=== PATIENT | male | born 1955 | race Caucasian/White ===

== ENCOUNTER → 2021-05-27 12:07 | Outpatient (BNVA) | payer OTHER, SELFPAY | PROVIDERS: PCP Family Medicine; Visit Provider Nurse Practitioner Family | DX: Z13.89 Encounter for screening for other disorder (principal) ==

== ENCOUNTER → 2021-06-28 12:51 | Outpatient (BNVA) | payer OTHER, SELFPAY | PROVIDERS: PCP Family Medicine; Visit Provider Nurse Practitioner Family ==

== ENCOUNTER → 2022-04-10 14:17 | Outpatient (BNVA) | payer OTHER, SELFPAY | PROVIDERS: PCP Family Medicine; Visit Provider Nurse Practitioner Family | DX: Z13.89 Encounter for screening for other disorder (principal) ==

== ENCOUNTER 2022-04-19 11:46 | Outpatient (REF) | payer OTHER, SELFPAY ==
--- NOTE | ~2022-04-19 | XR_ITS ---
EXAMINATION: XR PELVIS CLINICAL INFORMATION: Right hip pain COMPARISON: None TECHNIQUE: AP view of the pelvis. FINDINGS: Moderate degenerative changes of the left hip. Mild degenerative changes of the right hip. XR/XR pelvis 1-2V IMPRESSION: Moderate degenerative changes of the left hip. Mild degenerative changes of the right hip.
--- NOTE | ~2022-04-19 | XR_ITS ---
EXAMINATION: XR lumbar spine 6V w bending CLINICAL INFORMATION: Reason for Exam M43.10 - Spondylolisthesis, site unspecified COMPARISON: None TECHNIQUE: 3 views of the lumbar spine FINDINGS: 5 nonrib-bearing lumbar-type vertebral bodies. Vertebral body heights are maintained. Rightward scoliosis of the lumbar spine. Anterolisthesis of L5 on S1 and retrolisthesis of L4 on L5. Advanced multilevel degenerative disc disease with loss of disc space height, facet arthropathy and disc osteophyte complexes. This is worst at L1/L2.. Paravertebral soft tissues are unremarkable. XR/XR lumbar spine 6V w bending IMPRESSION: 1. Moderate spondylosis of the lumbar spine, as above detailed. 2. Spondylolisthesis, as above detailed.
== END 2022-04-19 11:47 | disposition home or self-care (01) ==
LOC: HO.XRAY 11:46
PROVIDERS: PCP Family Medicine; Visit Provider Nurse Practitioner Family
DX: M25.551 Pain in right hip (principal); M25.552 Pain in left hip; M43.10 Spondylolisthesis, site unspecified
CPT/HCPCS: 72114; 72170

== ENCOUNTER → 2022-06-20 15:29 | Outpatient (BNVA) | payer MEDICAID, SELFPAY | PROVIDERS: PCP Family Medicine; Visit Provider Nurse Practitioner Family | DX: D17.79 Benign lipomatous neoplasm of other sites (principal); M54.16 Radiculopathy, lumbar region; M47.816 Spondylosis without myelopathy or radiculopathy, lumbar region; M43.10 Spondylolisthesis, site unspecified; M62.838 Other muscle spasm; M53.3 Sacrococcygeal disorders, not elsewhere classified; M25.551 Pain in right hip; M25.552 Pain in left hip | CPT/HCPCS: 99212 ==

== ENCOUNTER 2022-07-11 06:19 | Outpatient (REF) | payer MEDICAID, SELFPAY ==
--- NOTE | ~2022-07-11 | FL_ITS ---
EXAMINATION: XR FLUOROSCOPY WITH IMAGES CLINICAL INFORMATION: Pain right hip COMPARISON: None available. TECHNIQUE: Fluoroscopy Supervised By: Dr. Napoleon Lim. Fluoroscopy Time: 0.5 minutes. Cumulative Dose: 13.3 mGy. DAP: 3.3 Gycm2. Images: 2. FINDINGS: 2 fluoroscopy images were obtained of right hip. Needle positioned in the right hip joint space and contrast opacifying the joint space. There is mild reduction in right hip joint space.. No bony abnormality seen. FL/FL guidance in treatment room IMPRESSION: Fluoroscopy guidance was provided Fluoroscopy was provided to referring physician for pain management.
== END 2022-07-11 06:20 | disposition home or self-care (01) ==
LOC: CF 06:19
PROVIDERS: Visit Provider Anesthesiology
DX: M16.0 Bilateral primary osteoarthritis of hip (principal); D17.79 Benign lipomatous neoplasm of other sites; M47.816 Spondylosis without myelopathy or radiculopathy, lumbar region; M43.10 Spondylolisthesis, site unspecified; M62.838 Other muscle spasm; M53.3 Sacrococcygeal disorders, not elsewhere classified
CPT/HCPCS: 20610; J2795; J3301

== ENCOUNTER 2022-07-12 18:56 | Outpatient (REF) | payer MEDICAID, SELFPAY ==
--- NOTE | ~2022-07-12 | MR_ITS ---
EXAMINATION: MR LUMBAR SPINE WITHOUT CONTRAST CLINICAL INFORMATION: Low back pain radiating into hips, legs COMPARISON: None TECHNIQUE: MRI of the lumbar spine was obtained using routine sequences without contrast. FINDINGS: S-shaped lumbar scoliosis with mild dextrocurvature, apex at L1-L2 and levocurvature, apex at L4-L5. There is straightening of the normal lumbar lordosis. 9 mm grade 2 anterolisthesis at L5-S1 secondary to chronic bilateral L5 pars interarticularis defects. Otherwise, diffuse stepwise grade 1 retrolistheses throughout the lumbar spine. Vertebral body heights are maintained. There is no suspicious osseous lesion. Diffuse disc desiccation and severe disc height loss with relative sparing at L4-L5. Multilevel predominantly type II Modic endplate changes with intermixed type I Modic endplate changes, most pronounced at L1-L2. Multilevel anterior osteophytic spurring is seen. There is congenital spinal canal stenosis on the basis of short pedicles with either crowding of the epidural fat or superimposed epidural lipomatosis. Multilevel degenerative changes with level by level detail as follows: T12-L1: Disc osteophyte complex with early migrated broad-based left paracentral disc extrusion. Mild bilateral facet arthrosis and ligamentum flavum thickening. Mild spinal canal and mild right without left neural foraminal stenosis. L1-L2: Disc osteophyte complex and likely small superiorly migrated left subarticular disc extrusion. Mild to moderate facet arthrosis. Moderate spinal canal stenosis and bilateral subarticular zone narrowing with mass effect along the traversing left L2 nerve root. Mild bilateral neural foraminal stenosis with impingement upon the extraforaminal right L1 nerve root. L2-L3: Disc osteophyte complex with likely superimposed small inferiorly migrated left subarticular disc extrusion and moderate bilateral facet arthrosis with ligamentum flavum thickening. Circumferential prominence/crowding of the epidural fat. Moderate to severe spinal canal stenosis. Mild to moderate left and mild right neural foraminal stenosis. L3-L4: Disc osteophyte complex. Moderate bilateral facet arthrosis and ligamentum flavum thickening. Circumferential prominence/crowding of the epidural fat. 7 mm hypointense focus above the level of the disc space in the right paracentral region favored to reflect extruded air contributing to severe spinal canal stenosis with mass effect along the cauda equina nerve roots. Moderate to severe spinal canal stenosis at the level of the disc and bilateral subarticular zone narrowing with mass effect along the traversing right greater than left L4 nerve roots. Severe bilateral neural foraminal stenosis with compression of the exiting L3 nerve roots. L4-L5: Small annular disc bulge with moderate facet arthrosis and circumferential prominent/crowding of the epidural fat. Mild to moderate effacement of the thecal sac. Mild to moderate left and mild right neural foraminal stenosis. L5-S1: Uncovered posterior disc, advanced facet arthrosis, and epidural lipomatosis. Complete effacement with mass effect along the thecal sac. Severe bilateral neural foraminal stenosis with compression of the exiting bilateral L5 nerve roots. The conus medullaris terminates at the level of T12-L1. Tendency of the cauda equina at T12-L1 related to multilevel high-grade spinal canal stenosis more inferiorly. The distal spinal cord is normal in appearance. . No epidural fluid collection, hematoma, or mass. There is moderate fatty atrophy of the paraspinal musculature. Right renal cyst for which no further imaging follow-up is required. MR/MR lumbar spine wo con IMPRESSION: 1. S-shaped lumbar scoliosis with diffuse severe discogenic disease with relative sparing of disc height loss at L4-L5. Congenital spinal canal stenosis with either crowding of the epidural fat or superimposed epidural lipomatosis on a background of lumbar spondylosis. Moderate to severe spinal canal stenosis at L2-L3 and L3-L4 and moderate spinal canal stenosis at L1-L2. Above the L3-L4 disc space, there is a presumed 7 mm focus of extruded air where there is severe spinal canal stenosis and mass effect along the cauda equina nerve roots. 2. At L5-S1, grade 2 anterolisthesis secondary to chronic bilateral L5 pars interarticularis defects. Epidural lipomatosis completely effaces the thecal sac at this level, and there is severe bilateral neural foraminal stenosis with compression of the exiting bilateral L5 nerve roots. 3. Severe bilateral neural foraminal stenosis at L3-L4 with compression of the exiting L3 nerve roots.
== END 2022-07-12 18:57 | disposition home or self-care (01) ==
LOC: HO.MRI 18:56
PROVIDERS: PCP Family Medicine; Visit Provider Nurse Practitioner Family
DX: M47.816 Spondylosis without myelopathy or radiculopathy, lumbar region (principal); D17.79 Benign lipomatous neoplasm of other sites; M62.838 Other muscle spasm
CPT/HCPCS: 72148

== ENCOUNTER → 2022-08-03 10:25 | Outpatient (BNVA) | payer MEDICAID, SELFPAY | PROVIDERS: PCP Family Medicine; Visit Provider Physician Assistant | DX: M48.061 Spinal stenosis, lumbar region without neurogenic claudication (principal); M54.16 Radiculopathy, lumbar region | CPT/HCPCS: 99202 ==

== ENCOUNTER → 2022-08-10 09:03 | Outpatient (BNVA) | payer MEDICAID, SELFPAY | PROVIDERS: PCP Family Medicine; Visit Provider Nurse Practitioner Family | DX: M48.061 Spinal stenosis, lumbar region without neurogenic claudication (principal); M54.16 Radiculopathy, lumbar region; M16.0 Bilateral primary osteoarthritis of hip; M47.816 Spondylosis without myelopathy or radiculopathy, lumbar region; M25.551 Pain in right hip; M25.552 Pain in left hip | CPT/HCPCS: 99212 ==

== ENCOUNTER 2022-08-21 07:29 | Outpatient (REF) | payer MEDICARE, MEDICAID, SELFPAY ==
--- NOTE | ~2022-08-21 | CT_ITS ---
EXAMINATION: CT LUMBAR SPINE WITHOUT CONTRAST CLINICAL INFORMATION: Spinal stenosis, neurogenic claudication COMPARISON: None TECHNIQUE: A multidetector CT acquisition of the lumbar spine is obtained without contrast. This CT examination was performed using dose optimization techniques as appropriate, variously including the following: *Automated exposure control *Adjustment of mA and/or kV according to patient size (this includes techniques or standardized protocols for targeted exams where dose is matched to indication/reason for exam; i.e. extremities or head) *Use of iterative reconstruction technique DLP: 605 mGy-cm FINDINGS: Transitional lumbosacral anatomy with hypertrophy of the L5 transverse processes and pseudoarticulation with the sacral ala. Associated advanced degenerative osseous spurring, subchondral sclerosis and cystic change at the synchondrosis on the right. For the purposes of this examination, the L5-S1 disc space can be seen on image 217, series 6. S-shaped lumbar curvature with dextrocurvature, apex at L2-L3 and levocurvature, apex at L4-L5. Slight left lateral listhesis at L1-L2 and right lateral listhesis at L3-L4. 8 mm grade 1 anterolisthesis at L5-S1 secondary to chronic bilateral L5 pars interarticularis defects. Mild grade 1 retrolistheses at L1-L2, L2-L3, and L4-L5. Vertebral body heights are maintained. There is no suspicious osseous lesion. There is multilevel disc height loss; severe and eccentric to the left from L1 to L4, moderate to severe at T12-L1 and moderate at L5-S1 with multilevel vacuum disc phenomenon. Degenerative subchondral sclerosis and cystic change, most pronounced and eccentric to the left at L1-L2 and L3-L4 and eccentric to the right at L5-S1. Please not canal patency is not well assessed on this examination due to inherent limitations of CT without intrathecal contrast. Within these limitations, multilevel degenerative changes with level by level detail are as follows: T12-L1: Disc osteophyte complex with broad-based paracentral disc osteophyte protrusion and mild bilateral facet arthrosis. Mild spinal canal narrowing and right neural foraminal encroachment without left neural foraminal stenosis. L1-L2: Disc osteophyte complex with some extruded air within the left lateral recess and mild bilateral facet arthrosis with ligamentum flavum thickening. Apparent at least mild spinal canal narrowing and left greater than right subarticular zone stenosis. Moderate left and mild right neural foraminal stenosis. L2-L3: Disc osteophyte complex with moderate bilateral facet arthrosis. At least mild spinal canal stenosis and left greater than right subarticular zone narrowing. Mild to moderate left and mild right neural foraminal narrowing. L3-L4: Disc osteophyte complex with superiorly migrated extruded air within the right paracentral zone and moderate bilateral facet arthrosis with ligamentum flavum thickening. Apparent moderate spinal canal stenosis and bilateral subarticular zone narrowing. Moderate left and mild right neural foraminal stenosis with impingement upon the exiting left L3 nerve root. L4-L5: Annular disc bulge with moderate bilateral facet arthrosis and ligamentum flavum thickening. Epidural lipomatosis. Moderate to severe thecal sac effacement. Mild bilateral neural foraminal stenosis. L5-S1: Posterior disc uncovering with superiorly migrated extruded air in the right paracentral zone, disc osteophyte complex, and bilateral facet arthrosis. Epidural lipomatosis severely effaces the thecal sac. Severe bilateral neural foraminal stenosis with compression along the exiting right greater than left L5 nerve roots. There is mild fatty atrophy of the paraspinal musculature. Right lower pole renal cyst not requiring further imaging follow-up. Partially imaged fatty infiltration of the pancreas. The abdominal aorta is of normal contour and caliber. Partially imaged presumably degenerative subchondral cyst in the right supra-acetabular iliac bone. CT/CT lumbar spine wo IV con IMPRESSION: 1. Transitional lumbosacral anatomy with hypertrophy of the L5 transverse processes and pseudoarticulation with the sacral ala and degenerative changes on the right. 2. S-shaped lumbar curvature with multilevel listhesis, as described. 3. Advanced multilevel discogenic disease as above. 4. At L5-S1, there is 8 mm grade 1 anterolisthesis at L5-S1 secondary to chronic bilateral L5 pars interarticularis defects. Resultant severe bilateral neural foraminal stenosis with compression along the exiting right greater than left L5 nerve roots. 5. Epidural lipomatosis contributes to moderate to severe L4-L5 and severe L5-S1 thecal sac effacement. 6. At L3-L4, moderate spinal canal stenosis and moderate left neural foraminal stenosis with impingement upon the exiting left L3 nerve root.
== END 2022-08-21 07:30 | disposition home or self-care (01) ==
LOC: HO.CT 07:29
PROVIDERS: PCP Family Medicine; Visit Provider Physician Assistant
DX: M48.061 Spinal stenosis, lumbar region without neurogenic claudication (principal); M54.16 Radiculopathy, lumbar region
CPT/HCPCS: 72131

== ENCOUNTER 2022-09-12 14:40 | Outpatient (AMB) | payer MEDICARE, MEDICAID, SELFPAY ==
--- NOTE | 2022-09-12 16:04 | HO.SPINEOV ---
Intake Intake Visit Reasons: CT follow up Intake Note: Mr. Guerrero is here to follow up regarding his CT Scan. 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 Please refer to my previous note for the specifics of his issue. Dr. Feldman and I reviewed the CT scan and unfortunately there is just too much diffuse arthritis, spondylosis as well as pars defect at L5 that we just do not know where we would start if we were trying to treat his back pain surgically. In other words we would have to fuse his whole lumbar spine up to the thoracolumbar junction. And with the inability to predict if that would even give him significant relief, and the chance that it would make him worse, Dr. Feldman did not feel that we should offer him at surgery. We did discuss possible spinal cord stimulator. He told me the he had had a discussion with your office about that so asked him to follow up to see if that is something you could offer him. Thank you for allowing us to care for your patient Total amount of time spent in this visit was 20 minutes in discussion of symptoms, CT scan imaging results and subsequent plan of care Alfie Feldman MD,PhD [facility] Coding Level of Care Code Est Pt Level 3 (05788) Diagnoses Spinal stenosis of lumbar region with radiculopathy M48.061; M54.16
== END 2022-09-12 16:38 | disposition home or self-care (01) ==
PROVIDERS: PCP Family Medicine; Visit Provider Physician Assistant
DX: M48.061 Spinal stenosis, lumbar region without neurogenic claudication (principal); M54.16 Radiculopathy, lumbar region
CPT/HCPCS: 99213

== ENCOUNTER → 2022-09-12 14:40 | Outpatient (BNVA) | payer MEDICARE, MEDICAID, SELFPAY | PROVIDERS: PCP Family Medicine; Visit Provider Physician Assistant | DX: M48.061 Spinal stenosis, lumbar region without neurogenic claudication (principal); M54.16 Radiculopathy, lumbar region | CPT/HCPCS: 99212 ==

== ENCOUNTER 2022-11-13 10:11 | Outpatient (AMB) | payer MEDICARE, MEDICAID, SELFPAY ==
--- NOTE | 2022-11-13 10:12 | MHC.OFFVIS ---
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 He was re-evaluated by [facility] after lumbar spine CT scan and discussed thoracolumbar junction fusion which both surgeons and patient does not want to proceed as this would not provide him significant pain relief. He was referred back to us by Neurosurgery office for potential SCS trial discussion. This was discussed previously and again today in greater details. We also discussed ITDD pain pump trial and implant as back up option. Patient is not taking any opioids now and might pursue this option with his PCP to assess his opioid tolerance and pain relief for future ITDD trial and implant if SCS does not provide him significant pain relief. The trialed and failed therapy has been reviewed with the patient and his . The risks, consequences, alternatives, and benefits of various treatment options were discussed with the patient in great detail, including conservative management, injections and procedures. Referral placed for psychology clearance in anticipation of SCS trial. PRIOR: Patient presents today to assess response to Bilateral intra-articular hip steroid injections on 07/11/[address] Lim. Patient reports 70% for left hip and 90% for right hip pain relief for following the procedure with improvement in his weight bearing tolerance, functioning and partially improved sleep. He continues to endorse low back pain due to significant degenerative changes and scoliosis. Patient was recently evaluated by our colleagues at [facility] on 08/03/22 after completing lumbar spine MRI on 07/12/22 with the full report noted below. Patient was discussed for fusion surgery after evaluating anatomical variance in his lumbar spine with a non-contrast lumbar CT. This has not been scheduled yet. Denies any recent cough, cold, infection, fever or other significant changes in medical history since last office visit. Patient denies any bladder or bowel incontinence or saddle anesthesia. Patient reports he is planning to go on vacation in September and is concerned for increase in pain for prolonged sitting for over [address] during flight[address] We will prescribe short script of Vicodin as patient has tolerated this well in the past. Aware of allergy to oxycodone. [facility] Medical History Osteoarthritis of hips, bilateral Hypothyroidism Hyperlipidemia Bipolar 1 disorder DVT (deep venous thrombosis) COVID-19 Lynette's thyroiditis Sacroiliac joint pain Bilateral lumbar radiculopathy Spondylosis of lumbar spine Bilateral hip pain Spondylolisthesis Review of Systems Const All systems reviewed & are unremarkable except as noted in HPI and below Physical Exam General: Appears afebrile. Alert and oriented. Mood and affect appropriate. Follows and participates in conversation appropriately. Respiratory effort is unlabored. No cough. Able to transition from sit to stand unassisted. Ambulates with bilaterally normal heel strike and toe off. Lumbar extension and flexion reproduces pain. Results Reviewed Results Reviewed: XR PELVIS 04/19/22 FINDINGS: Moderate degenerative changes of the left hip. Mild degenerative changes of the right hip. IMPRESSION: Moderate degenerative changes of the left hip. Mild degenerative changes of the right hip. MR LUMBAR SPINE WITHOUT CONTRAST 07/12/22 FINDINGS: S-shaped lumbar scoliosis with mild dextrocurvature, apex at L1-L2 and levocurvature, apex at L4-L5. There is straightening of the normal lumbar lordosis. 9 mm grade 2 anterolisthesis at L5-S1 secondary to chronic bilateral L5 pars interarticularis defects. Otherwise, diffuse stepwise grade 1 retrolistheses throughout the lumbar spine. Vertebral body heights are maintained. There is no suspicious osseous lesion. Diffuse disc desiccation and severe disc height loss with relative sparing at L4-L5. Multilevel predominantly type II Modic endplate changes with intermixed type I Modic endplate changes, most pronounced at L1-L2. Multilevel anterior osteophytic spurring is seen. There is congenital spinal canal stenosis on the basis of short pedicles with either crowding of the epidural fat or superimposed epidural lipomatosis. Multilevel degenerative changes with level by level detail as follows: T12-L1: Disc osteophyte complex with early migrated broad-based left paracentral disc extrusion. Mild bilateral facet arthrosis and ligamentum flavum thickening. Mild spinal canal and mild right without left neural foraminal stenosis. L1-L2: Disc osteophyte complex and likely small superiorly migrated left subarticular disc extrusion. Mild to moderate facet arthrosis. Moderate spinal canal stenosis and bilateral subarticular zone narrowing with mass effect along the traversing left L2 nerve root. Mild bilateral neural foraminal stenosis with impingement upon the extraforaminal right L1 nerve root. L2-L3: Disc osteophyte complex with likely superimposed small inferiorly migrated left subarticular disc extrusion and moderate bilateral facet arthrosis with ligamentum flavum thickening. Circumferential prominence/crowding of the epidural fat. Moderate to severe spinal canal stenosis. Mild to moderate left and mild right neural foraminal stenosis. L3-L4: Disc osteophyte complex. Moderate bilateral facet arthrosis and ligamentum flavum thickening. Circumferential prominence/crowding of the epidural fat. 7 mm hypointense focus above the level of the disc space in the right paracentral region favored to reflect extruded air contributing to severe spinal canal stenosis with mass effect along the cauda equina nerve roots. Moderate to severe spinal canal stenosis at the level of the disc and bilateral subarticular zone narrowing with mass effect along the traversing right greater than left L4 nerve roots. Severe bilateral neural foraminal stenosis with compression of the exiting L3 nerve roots. L4-L5: Small annular disc bulge with moderate facet arthrosis and circumferential prominent/crowding of the epidural fat. Mild to moderate effacement of the thecal sac. Mild to moderate left and mild right neural foraminal stenosis. L5-S1: Uncovered posterior disc, advanced facet arthrosis, and epidural lipomatosis. Complete effacement with mass effect along the thecal sac. Severe bilateral neural foraminal stenosis with compression of the exiting bilateral L5 nerve roots. The conus medullaris terminates at the level of T12-L1. Tendency of the cauda equina at T12-L1 related to multilevel high-grade spinal canal stenosis more inferiorly. The distal spinal cord is normal in appearance. . No epidural fluid collection, hematoma, or mass. There is moderate fatty atrophy of the paraspinal musculature. Right renal cyst for which no further imaging follow-up is required. IMPRESSION: 1. S-shaped lumbar scoliosis with diffuse severe discogenic disease with relative sparing of disc height loss at L4-L5. Congenital spinal canal stenosis with either crowding of the epidural fat or superimposed epidural lipomatosis on a background of lumbar spondylosis. Moderate to severe spinal canal stenosis at L2-L3 and L3-L4 and moderate spinal canal stenosis at L1-L2. Above the L3-L4 disc space, there is a presumed 7 mm focus of extruded air where there is severe spinal canal stenosis and mass effect along the cauda equina nerve roots. 2. At L5-S1, grade 2 anterolisthesis secondary to chronic bilateral L5 pars interarticularis defects. Epidural lipomatosis completely effaces the thecal sac at this level, and there is severe bilateral neural foraminal stenosis with compression of the exiting bilateral L5 nerve roots. 3. Severe bilateral neural foraminal stenosis at L3-L4 with compression of the exiting L3 nerve roots. CT LUMBAR SPINE WITHOUT CONTRAST 08/21/22 CLINICAL INFORMATION: Spinal stenosis, neurogenic claudication FINDINGS: Transitional lumbosacral anatomy with hypertrophy of the L5 transverse processes and pseudoarticulation with the sacral ala. Associated advanced degenerative osseous spurring, subchondral sclerosis and cystic change at the synchondrosis on the right. For the purposes of this examination, the L5-S1 disc space can be seen on image 217, series 6. S-shaped lumbar curvature with dextrocurvature, apex at L2-L3 and levocurvature, apex at L4-L5. Slight left lateral listhesis at L1-L2 and right lateral listhesis at L3-L4. 8 mm grade 1 anterolisthesis at L5-S1 secondary to chronic bilateral L5 pars interarticularis defects. Mild grade 1 retrolistheses at L1-L2, L2-L3, and L4-L5. Vertebral body heights are maintained. There is no suspicious osseous lesion. There is multilevel disc height loss; severe and eccentric to the left from L1 to L4, moderate to severe at T12-L1 and moderate at L5-S1 with multilevel vacuum disc phenomenon. Degenerative subchondral sclerosis and cystic change, most pronounced and eccentric to the left at L1-L2 and L3-L4 and eccentric to the right at L5-S1. Please not canal patency is not well assessed on this examination due to inherent limitations of CT without intrathecal contrast. Within these limitations, multilevel degenerative changes with level by level detail are as follows: T12-L1: Disc osteophyte complex with broad-based paracentral disc osteophyte protrusion and mild bilateral facet arthrosis. Mild spinal canal narrowing and right neural foraminal encroachment without left neural foraminal stenosis. L1-L2: Disc osteophyte complex with some extruded air within the left lateral recess and mild bilateral facet arthrosis with ligamentum flavum thickening. Apparent at least mild spinal canal narrowing and left greater than right subarticular zone stenosis. Moderate left and mild right neural foraminal stenosis. L2-L3: Disc osteophyte complex with moderate bilateral facet arthrosis. At least mild spinal canal stenosis and left greater than right subarticular zone narrowing. Mild to moderate left and mild right neural foraminal narrowing. L3-L4: Disc osteophyte complex with superiorly migrated extruded air within the right paracentral zone and moderate bilateral facet arthrosis with ligamentum flavum thickening. Apparent moderate spinal canal stenosis and bilateral subarticular zone narrowing. Moderate left and mild right neural foraminal stenosis with impingement upon the exiting left L3 nerve root. L4-L5: Annular disc bulge with moderate bilateral facet arthrosis and ligamentum flavum thickening. Epidural lipomatosis. Moderate to severe thecal sac effacement. Mild bilateral neural foraminal stenosis. L5-S1: Posterior disc uncovering with superiorly migrated extruded air in the right paracentral zone, disc osteophyte complex, and bilateral facet arthrosis. Epidural lipomatosis severely effaces the thecal sac. Severe bilateral neural foraminal stenosis with compression along the exiting right greater than left L5 nerve roots. There is mild fatty atrophy of the paraspinal musculature. Right lower pole renal cyst not requiring further imaging follow-up. Partially imaged fatty infiltration of the pancreas. The abdominal aorta is of normal contour and caliber. Partially imaged presumably degenerative subchondral cyst in the right supra-acetabular iliac bone. IMPRESSION: 1. Transitional lumbosacral anatomy with hypertrophy of the L5 transverse processes and pseudoarticulation with the sacral ala and degenerative changes on the right. 2. S-shaped lumbar curvature with multilevel listhesis, as described. 3. Advanced multilevel discogenic disease as above. 4. At L5-S1, there is 8 mm grade 1 anterolisthesis at L5-S1 secondary to chronic bilateral L5 pars interarticularis defects. Resultant severe bilateral neural foraminal stenosis with compression along the exiting right greater than left L5 nerve roots. 5. Epidural lipomatosis contributes to moderate to severe L4-L5 and severe L5-S1 thecal sac effacement. 6. At L3-L4, moderate spinal canal stenosis and moderate left neural foraminal stenosis with impingement upon the exiting left L3 nerve root. Assessment & Plan Assessment & Plan (1) Spinal stenosis of lumbar region with radiculopathy: Code(s): M48.061 - Spinal stenosis, lumbar region without neurogenic claudication; M54.16 - Radiculopathy, lumbar region (2) Bilateral lumbar radiculopathy: Code(s): M54.16 - Radiculopathy, lumbar region (3) Spondylosis of lumbar spine: Code(s): M47.816 - Spondylosis without myelopathy or radiculopathy, lumbar region Plan Placed referral for psychology clearance in anticipation of SCS trial. Extensive discussion regarding the risks and benefits of SCS trial and implant procedures and all questions were answered to patient satisfaction. We also discussed ITDD pain pump trial and implant. Will proceed with Nevro HFX trial pending psychology clearance. Follow up as needed. Medications: Changed From lidocaine 5% 1 patch topical DAILY M47.816 - Spondylosis without myelopathy or radiculopathy, lumbar region, M48.061 - Spinal stenosis, lumbar region without neurogenic claudication, M54.16 - Radiculopathy, lumbar region To lidocaine 5% 1 patch topical DAILY 30 days 30 ea 0RF pain M47.816 - Spondylosis without myelopathy or radiculopathy, lumbar region, M48.061 - Spinal stenosis, lumbar region without neurogenic claudication, M54.16 - Radiculopathy, lumbar region Coding Level of Care Code Est Pt Level 3 (83241) Diagnoses Spinal stenosis of lumbar region with radiculopathy M48.061; M54.16 Bilateral lumbar radiculopathy M54.16 Spondylosis of lumbar spine M47.816
[2022-11-13 10:18] VITALS: BP 167/81; PULSE 97; O2SAT 96; BMI 28.9
== END 2022-11-13 10:37 | disposition home or self-care (01) ==
PROVIDERS: PCP Family Medicine; Visit Provider Nurse Practitioner Family
DX: M48.061 Spinal stenosis, lumbar region without neurogenic claudication (principal); M54.16 Radiculopathy, lumbar region; M47.816 Spondylosis without myelopathy or radiculopathy, lumbar region
CPT/HCPCS: 99213

== ENCOUNTER → 2022-11-13 10:11 | Outpatient (BNVA) | payer MEDICARE, MEDICAID, SELFPAY | PROVIDERS: PCP Family Medicine; Visit Provider Nurse Practitioner Family | DX: M16.0 Bilateral primary osteoarthritis of hip (principal); M53.3 Sacrococcygeal disorders, not elsewhere classified; M54.16 Radiculopathy, lumbar region; M48.061 Spinal stenosis, lumbar region without neurogenic claudication; M47.816 Spondylosis without myelopathy or radiculopathy, lumbar region | CPT/HCPCS: 99212 ==

== ENCOUNTER 2023-04-20 06:21 | Day surgery (SDC) | payer MEDICARE, OTHER, SELFPAY ==
--- NOTE | 2023-04-19 09:15 | P.CONAN_ITS ---
Documented by User: Amber Weaver NP 04/19/23 09:16 HPI - Anesthesia Eval Consult details Narrative: 67yo M for Spinal Cord Stimulation Trial [facility] Active Problems Active Problems: All Active Problems (Updated 07/12/22 @ 22:15 by MARK Bustamante) Spinal stenosis of lumbar region with radiculopathy (Acute) Osteoarthritis of hips, bilateral (Acute) Epidural lipomatosis (Acute) Sacroiliac joint pain (Acute) Bilateral lumbar radiculopathy (Acute) Spondylosis of lumbar spine (Acute) Bilateral hip pain (Acute) Spondylolisthesis (Acute) Muscle spasm (Acute) Past Medical History Medical History Osteoarthritis of hips, bilateral Hypothyroidism Hyperlipidemia Bipolar 1 disorder DVT (deep venous thrombosis) COVID-19 Lynette's thyroiditis Sacroiliac joint pain Bilateral lumbar radiculopathy Spondylosis of lumbar spine Bilateral hip pain Spondylolisthesis Social History Social History Patient Tobacco Use Status: Never used Tobacco Use of substances other than those prescribed or required for medical reasons: No Are you DNR?: No Advance Directives: No Advance Directives Information Provided: Yes Meds Allergies Allergy/AdvReac Type Severity Reaction Status Date / Time oxycodone AdvReac Severe vertigo Verified 11/13/22 10:19 sulfamethoxazole AdvReac Severe AFIB Verified 11/13/22 10:19 [From Bactrim] trimethoprim [From Bactrim] AdvReac Severe AFIB Verified 11/13/22 10:19 Home Medications Medication Instructions Recorded Confirmed Last Taken Type carbamazepine 200 mg tablet 200 mg PO BID 05/27/21 04/10/22 Unknown History (Tegretol) cholecalciferol (vitamin D3) 250 250 mcg PO DAILY 05/27/21 04/10/22 Unknown History mcg (10,000 unit) capsule duloxetine 30 mg capsule,delayed 30 mg PO DAILY 05/27/21 04/10/22 Unknown History release duloxetine 60 mg capsule,delayed 60 mg PO DAILY 05/27/21 04/10/22 Unknown History release echinacea 380 mg capsule 380 mg PO DAILY 05/27/21 04/10/22 Unknown History levothyroxine 50 mcg tablet 50 mcg PO DAILY 05/27/21 04/10/22 04/20/23 History melatonin 10 mg capsule 10 mg PO BEDTIME PRN 05/27/21 04/10/22 Unknown History metoprolol tartrate 25 mg tablet 25 mg PO BID 05/27/21 04/10/22 04/20/23 History pantoprazole 40 mg tablet,delayed 40 mg PO BID 05/27/21 04/10/22 Unknown History release topiramate 25 mg tablet 25 mg PO BID 05/27/21 04/10/22 Unknown History Assessment and Plan Assessment Anesthesia Assessment: Chart Reviewed Documented by User: Fredrick Pedersen MD 04/20/23 07:08 PMFSH Past Medical History Medical History Osteoarthritis of hips, bilateral Hypothyroidism Hyperlipidemia Bipolar 1 disorder DVT (deep venous thrombosis) COVID-19 Lynette's thyroiditis Sacroiliac joint pain Bilateral lumbar radiculopathy Spondylosis of lumbar spine Bilateral hip pain Spondylolisthesis Family History Family history of problems with anesthesia: No Surgical History History of Problems with Anesthesia: No Social History Social History Patient Tobacco Use Status: Never used Tobacco Use of substances other than those prescribed or required for medical reasons: No Are you DNR?: No Advance Directives: No Advance Directives Information Provided: Yes Meds Allergies Allergy/AdvReac Type Severity Reaction Status Date / Time oxycodone AdvReac Severe vertigo Verified 11/13/22 10:19 sulfamethoxazole AdvReac Severe AFIB Verified 11/13/22 10:19 [From Bactrim] trimethoprim [From Bactrim] AdvReac Severe AFIB Verified 11/13/22 10:19 Home Medications Medication Instructions Recorded Confirmed Last Taken Type carbamazepine 200 mg tablet 200 mg PO BID 05/27/21 04/10/22 Unknown History (Tegretol) cholecalciferol (vitamin D3) 250 250 mcg PO DAILY 05/27/21 04/10/22 Unknown History mcg (10,000 unit) capsule duloxetine 30 mg capsule,delayed 30 mg PO DAILY 05/27/21 04/10/22 Unknown Histor y release duloxetine 60 mg capsule,delayed 60 mg PO DAILY 05/27/21 04/10/22 Unknown History release echinacea 380 mg capsule 380 mg PO DAILY 05/27/21 04/10/22 Unknown History levothyroxine 50 mcg tablet 50 mcg PO DAILY 05/27/21 04/10/22 04/20/23 History melatonin 10 mg capsule 10 mg PO BEDTIME PRN 05/27/21 04/10/22 Unknown History metoprolol tartrate 25 mg tablet 25 mg PO BID 05/27/21 04/10/22 04/20/23 History pantoprazole 40 mg tablet,delayed 40 mg PO BID 05/27/21 04/10/22 Unknown History release topiramate 25 mg tablet 25 mg PO BID 05/27/21 04/10/22 Unknown History Exam Airway Mallampati Class: I TM Dist: <=3cm Neck ROM: Full Loose/Missing/Broken Teeth: No Heart: rrr Lungs: cta b/l Assessment and Plan Final Anesthetic Review Family History of Problems with Anesthesia: No History of Problems with Anesthesia: No NPO: Yes Final Preanesthetic Review: No Changes in Pt Med Stat, Consent Obtained/Reviewed and Anes Risks/Benef Reviewed Patient Risk: Low Procedure Risk: Low Anesthetic Plan Anesthetic Plan: MAC: Disposition: Standard PACU
--- NOTE | ~2023-04-20 | FL_ITS ---
EXAMINATION: XR FLUOROSCOPY WITH IMAGES CLINICAL INFORMATION: Spinal cord stimulation trial COMPARISON: None available. TECHNIQUE: Fluoroscopy Supervised By: Dr. Napoleon Lim. Fluoroscopy Time: 6.15 seconds. Cumulative Dose: 102.27 mGy. DAP: 44.399 Gycm2. Images: 2. FINDINGS: AP and lateral fluoroscopic views were obtained of the thoracic spine. Stimulator electrodes are seen in the spinal canal. FL/FL guidance in OR IMPRESSION: Fluoroscopy guidance was provided to the referring physician for pain management.
[2023-04-20 06:48] VITALS: BMI 28.4
[2023-04-20 06:50] VITALS: BP 139/79; PULSE 74; RESP 18; TEMP 36.2; O2SAT 99
[2023-04-20] MEDS: Lactated Ringers 1,000 ML 100 ML IVCONT (07:05)
--- NOTE | 2023-04-20 07:11 | MHC.SHP ---
Pre-Procedural Eval Section A - 24 Hr Update-Section A only Date of Service: 04/20/23 Section B - Complete if H&P > 30 days Chief Complaint: Radiculopathy, lumbar region,spinal stenosis Details of Present Illness: As above Relevant Family History (Specify if Yes): No Relevant Social History: None Present Medications: None Medical History: No relevant PMH History of Previous Operations: No relevant previous surgery Allergies: Allergies Allergy/AdvReac Type Severity Reaction Status Date / Time oxycodone AdvReac Severe vertigo Verified 11/13/22 10:19 sulfamethoxazole AdvReac Severe AFIB Verified 11/13/22 10:19 [From Bactrim] trimethoprim [From Bactrim] AdvReac Severe AFIB Verified 11/13/22 10:19 Review of Systems Sugical H&P ROS: Negative: Constitution, Cardiovascular, Respiratory, Neurological, Psychiatric, Hem-Onc, Allergic/Immunologic, Gastrointestinal, Genitourinary, Integumentary, Endocrine and Eyes/Ears/Nose/Throat and Yes, Specify: Musculoskeletal (Scoliosis, spondylosis, spinal stenosis.) Exam Surgical H&P Exam: Normal: HEENT, Normal: Heart, Normal: Lungs, Normal: Extremities, Normal: Abdomen, Normal: Skin and Normal: Neurological Plan Diagnosis/Plan: Unchanged I have reviewed the history and physical and performed a pertinent physical examination on my patient. No changes have occurred unless specified. Time Spent With Patient Time: Total time managing care of this patient today __15__ minutes.
[2023-04-20 09:14] VITALS: BP 126/73; PULSE 67; RESP 16; TEMP 36.4; O2SAT 99
--- NOTE | 2023-04-20 09:18 | PM.OP ---
Brief Operative Note Date of Service: 04/20/23 Pre-op diagnosis: Scoliosis thoracolumbar, radiculopathy lumbar, disc degeneration lumbar, chronic pain syndrome. Post-op diagnosis: same Procedure: Trial of Nevro SCS. Surgeon: Napoleon Lim MD Anesthesia: MAC Was an Salesperson Driver used for this Procedure?: No Estimated blood loss (mL): 0 Condition: stable Disposition: PACU
[2023-04-20 09:19] VITALS: BP 125/84; PULSE 67; RESP 16; O2SAT 98
[2023-04-20 09:24] VITALS: BP 123/78; PULSE 64; RESP 17; O2SAT 99
--- NOTE | 2023-04-20 09:24 | P.OP_ITS ---
Operative Note Operative Note Date of Service: 04/20/23 Narrative: Trial of Nevro spinal cord stimulator. Carlito is very pleasant 67 years old gentleman who came today into the operating room for the trial of spinal cord stimulator for the treatment of chronic pain syndrome, spondylosis of lumbar spine, disc degeneration lumbar.. Preoperatively patient received ?cefazolin to g approximately 30 minutes before the procedure. After obtaining informed consent the patient was brought to the operating room, he was positioned prone on the stretcher [employer] [place] [employer] monitors were applied and patient was moderately sedated. ?Time-out was performed delineating correct site, side, the nature of the procedure, patient's allergy, preoperative antibiotic if needed.? All operating room staff was participating in OR time-out procedure Patient's entire back was prepped with ChloraPrep twice and draped with full body fenestrated drape .? Sterilely draped C-arm was brought over operating field and square picture of? T12-L1 and [id number] as were demonstrated on the screen.? The skin was? infiltrated with the mixture of lidocaine 2% and ropivacaine 0.5% in the projection of the right pedicle of L2 to vertebra. After that? number 11 Blade scalpel was used to perform small juan jose in the skin. t the attention? was concentrated on the T12-L1 epidural interspace.? The location of the projection of the right pedicle center of the? L2 vertebra was found on the skin using C-arm.? This location was injected with mixture of lidocaine 2% and Marcaine 0.5% 5 cc.? ? 10 cm 14 gauge? introducer epidural needle was inserted through the skin and advanced to? T12-L1 epidural interspace.? The advancement of the needle was performed on anterior posterior and lateral views.? Guitar wire and loss of resistance technique were used to locate epidural space.? When guitar wire was spread in the epidural fashion, epidural lead was inserted through the needle and it was advanced to the posterior epidural space. The advancement was somewhat difficult and the initially the lead went anteriorly into the epidural space. After that we took direction of the electrode little bit more to the left and advanced electrode strictly in the posterior images of the spinous processes silhouettes. We were able to advance the tip of the electrode to the level of T8 vertebra in the posterior epidural space. Lateral view verify position of the electrode in posterior epidural space. After that location of the projection of the LEFT pedicle center of the L2 vertebra was found using C-arm.? This location was injected with mixture of lidocaine 2% and Marcaine 0.5% 5 cc.?10 cm 14 gauge? introducer epidural needle was inserted through the skin and advanced to T12-L1 epidural interspace.? The advancement of the needle was performed on anterior posterior and lateral views.? Guitar wire and loss of resistance technique were used to locate epidural space.? When guitar wire was spread in the epidural fashion, epidural lead was inserted through the needle.? Loss of resistance to air technique and guitar wire were used to locate epidural space. After that the? epidural lead was advanced? slightly left to the midline? to the top of the? T9 vertebra in the posterior epidural space slightly left to the existing electrode.? ?Lateral view demonstrated appropriate position of the electrodes in the posterior epidural space. At this moment patient was awakened and the epidural leads were connected to testing device. Patient reported stimulation roughly corresponding to his pain distribution. After satisfactory position of the leads were established the needles were withdrawn, the stylette wires were removed from the epidural leads.? The anchoring devices were dislodged on the leads and advanced to the level of the skin. ?After that the anchoring devices were sutured to the skin using silk 0-0 sutures - 2 sutures per each anchoroing device?. The fixation scews were locked until 3 clicks heard. Position of the electrodes was verified again. After that bacitracin ointment was applied to the tips of the anchoring devices at the places where electrodes were entering through the skin sterile dressing was applied with Tegaderm. The stimulating device was connected to epidural leads and it was taped to the skin as well. At this moment the patient was fully awake he was transferred on the stretcher and brought to PACU for recovery.
[2023-04-20 09:29] VITALS: BP 133/78; PULSE 64; RESP 13; O2SAT 100
[2023-04-20 09:44] VITALS: BP 128/78; PULSE 62; RESP 16; TEMP 36.3; O2SAT 100
== END 2023-04-20 10:15 | disposition home or self-care (01) ==
PROVIDERS: PCP Family Medicine; Visit Provider Anesthesiology
PROC: (CPT 63650; principal; 2023-04-20 07:30)
DX: M48.061 Spinal stenosis, lumbar region without neurogenic claudication (principal); M54.16 Radiculopathy, lumbar region; M47.816 Spondylosis without myelopathy or radiculopathy, lumbar region; G89.4 Chronic pain syndrome; M41.85 Other forms of scoliosis, thoracolumbar region; Z88.2 Allergy status to sulfonamides; Z88.5 Allergy status to narcotic agent
CPT/HCPCS: 63650 ×2; C1713; C1897; J0690; J2704; J2795

== ENCOUNTER → 2023-04-20 06:21 | Outpatient (BNV) | payer MEDICARE, SELFPAY | PROVIDERS: PCP Family Medicine; Visit Provider Anesthesiology | DX: M48.061 Spinal stenosis, lumbar region without neurogenic claudication (principal); M54.16 Radiculopathy, lumbar region; M47.816 Spondylosis without myelopathy or radiculopathy, lumbar region | CPT/HCPCS: 63650 ==

== ENCOUNTER 2023-04-24 09:04 | Outpatient (REF) | payer MEDICARE, SELFPAY ==
--- NOTE | ~2023-04-24 | XR_ITS ---
EXAMINATION: XR THORACOLUMBAR SPINE CLINICAL INFORMATION: Change of simulation pattern. COMPARISON: Lumbar spine radiographs of 04/19/2022. TECHNIQUE: 3 views of the thoracic spine. FINDINGS: Lung volumes are low. Rightward curvature and advanced degenerative change in the partially imaged upper portion of the lumbar spine. Moderate multilevel degenerative changes in the thoracic spine are most notable in the [id number] thoracic spine. Spinal stimulator device overlies the posterior aspect of the lower thoracic spine with leads projecting approximately at the T7 level. XR/XR thoracic spine 2V IMPRESSION: 1. Spinal stimulator device overlies the posterior aspect of the lower thoracic spine with leads projecting approximately at the T7 level. 2. Moderate multilevel degenerative changes in the thoracic spine are most notable in the mid to lower thoracic spine.
== END 2023-04-24 09:05 | disposition home or self-care (01) ==
LOC: HO.XRAY 09:04
PROVIDERS: Visit Provider Anesthesiology
DX: T85.192A Other mechanical complication of implanted electronic neurostimulator of spinal cord electrode (lead), initial encounter (principal)
CPT/HCPCS: 72070

== ENCOUNTER 2023-04-26 10:04 | Outpatient (AMB) | payer BC, MEDICARE, MEDICAID, SELFPAY ==
--- NOTE | 2023-04-26 10:05 | MHC.OFFVIS ---
Intake Vital Signs 04/26/23 10:10 Height 5 ft 7 in Weight 186 lb BMI 29.1 BP 140/80 H Blood Pressure Location Rt brachial Position Sitting Pulse 71 Pulse Source Pulse Oximeter Pulse Oximetry (%) 99 Oxygen Delivery Method Room Air Intake Visit Reasons: S/p [facility] SCS Trial 04/20/23 Intake Note: Pain today 08/21 Administrative Support Clerk Required: No Accompanied by: Spouse Allergies oxycodone Adverse Reaction (Severe, Verified 04/26/23 10:10) vertigo sulfamethoxazole [From Bactrim] Adverse Reaction (Severe, Verified 04/26/23 10:10) AFIB trimethoprim [From Bactrim] Adverse Reaction (Severe, Verified 04/26/23 10:10) AFIB HPI HPI Comments History of Present Illness Details Patient presents today status post [facility] SCS trial on 04/20/[address] Lim. Unfortunately, patient did not have a successful trial, providing him 30-40% pain relief and overall improvement of his symptoms. [facility] representatives, including Rene and Alfie, aggressively worked through SCS programs and kept in contact with patient 2-3 times/day during trial period. Patient did report good pain relief in his hips during resting but unsustainable following any activity. He also reports significant chronic neck pain and is interested to pursue neuromodulation options for this as well. Denies any recent cough, cold, infection, fever, any significant changes in her medical history, medications or recent hospitalizations. The tape was removed. The stimulating battery pad was disconnected from the epidural leads. These sites of the insertion were cleansed with ChloraPrep and sutures were severed. The epidural leads were removed and the tips were intact. No erythema, swelling, tenderness or pathological discharge was noted. Bacitracin ointment, dry sterile and Tegaderm dressing were applied. Past Procedures: 04/20/23: Lumbar [facility] SCS trial-30-40% pain relief PRIOR: Patient presents today for follow up to discuss spinal cord stimulation trial and implant for chronic back pain. He was re-evaluated by [facility] after lumbar spine CT scan and discussed thoracolumbar junction fusion which both surgeons and patient does not want to proceed as this would not provide him significant pain relief. He was referred back to us by Neurosurgery office for potential SCS trial discussion. This was discussed previously and again today in greater details. We also discussed ITDD pain pump trial and implant as back up option. Patient is not taking any opioids now and might pursue this option with his PCP to assess his opioid tolerance and pain relief for future ITDD trial and implant if SCS does not provide him significant pain relief. The trialed and failed therapy has been reviewed with the patient and his . The risks, consequences, alternatives, and benefits of various treatment options were discussed with the patient in great detail, including conservative management, injections and procedures. Referral placed for psychology clearance in anticipation of SCS trial. PRIOR: Patient presents today to assess response to Bilateral intra-articular hip steroid injections on 07/11/[address] Lim. Patient reports 70% for left hip and 90% for right hip pain relief for following the procedure with improvement in his weight bearing tolerance, functioning and partially improved sleep. He continues to endorse low back pain due to significant degenerative changes and scoliosis. Patient was recently evaluated by our colleagues at [facility] on 08/03/22 after completing lumbar spine MRI on 07/12/22 with the full report noted below. Patient was discussed for fusion surgery after evaluating anatomical variance in his lumbar spine with a non-contrast lumbar CT. This has not been scheduled yet. Denies any recent cough, cold, infection, fever or other significant changes in medical history since last office visit. Patient denies any bladder or bowel incontinence or saddle anesthesia. Patient reports he is planning to go on vacation in September and is concerned for increase in pain for prolonged sitting for over [address] during flight[address] We will prescribe short script of Vicodin as patient has tolerated this well in the past. Aware of allergy to oxycodone. PRIOR: Carlito is a pleasant 66 year old male who presents to the office with 40 year history of widespread pain. He is accompanied by his Arlin today. He reports severe persistent and progressively worsening lower back pain with radiation into BLE with associated numbness and tingling. He also notes severe axial pain that radiates into bilateral hips L>R. He denies any saddle anesthesia, weakness or bowel dysfunction. He does self cath which he attributes to lumbar RFA, as the symptoms started 2 weeks post procedure. He states his PCP recently ordered a lumbar spine MRI which will be performed on the at [place]. He also reports a pelvic fracture in 2007. He has been evaluated by [facility] pain management and [facility]. He has had multiple interventions performed including HAILY, ablations as well as chiropractic manipulation, acupuncture, TENS unit and physical therapy with varying pain relief but no significant outcomes. He was also evaluated by [facility] and deemed not a surgical candidate. He has also trialed multiple oral and topical medications with minimal relief including tylenol, flexeril, gabapentin, as well as lidocaine patches and tiger balm with little to no relief. He is currently managed on cymbalta, Carbamazepine and topamax with less than adequate alleviation in symptoms. He reports his pain onset was gradual, constant and rates the pain a 5-10/10. His pain is aggravated by prolonged positioning as well as standing. He does note have a shuffling and slow gait. In terms of tissue damage he describes his pain as aching, shooting, numb as well as tiring and burning. He reports the pain is negatively impacting his general activity, mood, recreational activities, sleep and walking. His past medical history of consistent for Lynette's thyroiditis, COVID-19, DVT, Bipolar 1, Hyperlipidemia, hypothyroidism. [facility] Medical History Osteoarthritis of hips, bilateral Hypothyroidism Hyperlipidemia Bipolar 1 disorder DVT (deep venous thrombosis) COVID-19 Lynette's thyroiditis Sacroiliac joint pain Bilateral lumbar radiculopathy Spondylosis of lumbar spine Bilateral hip pain Spondylolisthesis Social History Patient Tobacco Use Status: Never used Tobacco Review of Systems Const All systems reviewed & are unremarkable except as noted in HPI and below Physical Exam Vital Signs: Last Vital Signs Pulse 71 04/26/23 10:10 BP 140/80 H 04/26/23 10:10 Pulse Ox 99 04/26/23 10:10 Oxygen Delivery Method Room Air 04/26/23 10:10 BMI result Body Mass Index 29.1 General: Appears afebrile. Alert and oriented. Mood and affect appropriate. Follows and participates in conversation appropriately. Respiratory effort is unlabored. Able to transition from sit to stand unassisted. Ambulates with bilaterally normal heel strike and toe off. Leads removed with tips intact. Results Reviewed Results Reviewed: XR PELVIS 04/19/22 FINDINGS: Moderate degenerative changes of the left hip. Mild degenerative changes of the right hip. IMPRESSION: Moderate degenerative changes of the left hip. Mild degenerative changes of the right hip. MR LUMBAR SPINE WITHOUT CONTRAST 07/12/22 FINDINGS: S-shaped lumbar scoliosis with mild dextrocurvature, apex at L1-L2 and levocurvature, apex at L4-L5. There is straightening of the normal lumbar lordosis. 9 mm grade 2 anterolisthesis at L5-S1 secondary to chronic bilateral L5 pars interarticularis defects. Otherwise, diffuse stepwise grade 1 retrolistheses throughout the lumbar spine. Vertebral body heights are maintained. There is no suspicious osseous lesion. Diffuse disc desiccation and severe disc height loss with relative sparing at L4-L5. Multilevel predominantly type II Modic endplate changes with intermixed type I Modic endplate changes, most pronounced at L1-L2. Multilevel anterior osteophytic spurring is seen. There is congenital spinal canal stenosis on the basis of short pedicles with either crowding of the epidural fat or superimposed epidural lipomatosis. Multilevel degenerative changes with level by level detail as follows: T12-L1: Disc osteophyte complex with early migrated broad-based left paracentral disc extrusion. Mild bilateral facet arthrosis and ligamentum flavum thickening. Mild spinal canal and mild right without left neural foraminal stenosis. L1-L2: Disc osteophyte complex and likely small superiorly migrated left subarticular disc extrusion. Mild to moderate facet arthrosis. Moderate spinal canal stenosis and bilateral subarticular zone narrowing with mass effect along the traversing left L2 nerve root. Mild bilateral neural foraminal stenosis with impingement upon the extraforaminal right L1 nerve root. L2-L3: Disc osteophyte complex with likely superimposed small inferiorly migrated left subarticular disc extrusion and moderate bilateral facet arthrosis with ligamentum flavum thickening. Circumferential prominence/crowding of the epidural fat. Moderate to severe spinal canal stenosis. Mild to moderate left and mild right neural foraminal stenosis. L3-L4: Disc osteophyte complex. Moderate bilateral facet arthrosis and ligamentum flavum thickening. Circumferential prominence/crowding of the epidural fat. 7 mm hypointense focus above the level of the disc space in the right paracentral region favored to reflect extruded air contributing to severe spinal canal stenosis with mass effect along the cauda equina nerve roots. Moderate to severe spinal canal stenosis at the level of the disc and bilateral subarticular zone narrowing with mass effect along the traversing right greater than left L4 nerve roots. Severe bilateral neural foraminal stenosis with compression of the exiting L3 nerve roots. L4-L5: Small annular disc bulge with moderate facet arthrosis and circumferential prominent/crowding of the epidural fat. Mild to moderate effacement of the thecal sac. Mild to moderate left and mild right neural foraminal stenosis. L5-S1: Uncovered posterior disc, advanced facet arthrosis, and epidural lipomatosis. Complete effacement with mass effect along the thecal sac. Severe bilateral neural foraminal stenosis with compression of the exiting bilateral L5 nerve roots. The conus medullaris terminates at the level of T12-L1. Tendency of the cauda equina at T12-L1 related to multilevel high-grade spinal canal stenosis more inferiorly. The distal spinal cord is normal in appearance. . No epidural fluid collection, hematoma, or mass. There is moderate fatty atrophy of the paraspinal musculature. Right renal cyst for which no further imaging follow-up is required. IMPRESSION: 1. S-shaped lumbar scoliosis with diffuse severe discogenic disease with relative sparing of disc height loss at L4-L5. Congenital spinal canal stenosis with either crowding of the epidural fat or superimposed epidural lipomatosis on a background of lumbar spondylosis. Moderate to severe spinal canal stenosis at L2-L3 and L3-L4 and moderate spinal canal stenosis at L1-L2. Above the L3-L4 disc space, there is a presumed 7 mm focus of extruded air where there is severe spinal canal stenosis and mass effect along the cauda equina nerve roots. 2. At L5-S1, grade 2 anterolisthesis secondary to chronic bilateral L5 pars interarticularis defects. Epidural lipomatosis completely effaces the thecal sac at this level, and there is severe bilateral neural foraminal stenosis with compression of the exiting bilateral L5 nerve roots. 3. Severe bilateral neural foraminal stenosis at L3-L4 with compression of the exiting L3 nerve roots. CT LUMBAR SPINE WITHOUT CONTRAST 08/21/22 CLINICAL INFORMATION: Spinal stenosis, neurogenic claudication FINDINGS: Transitional lumbosacral anatomy with hypertrophy of the L5 transverse processes and pseudoarticulation with the sacral ala. Associated advanced degenerative osseous spurring, subchondral sclerosis and cystic change at the synchondrosis on the right. For the purposes of this examination, the L5-S1 disc space can be seen on image 217, series 6. S-shaped lumbar curvature with dextrocurvature, apex at L2-L3 and levocurvature, apex at L4-L5. Slight left lateral listhesis at L1-L2 and right lateral listhesis at L3-L4. 8 mm grade 1 anterolisthesis at L5-S1 secondary to chronic bilateral L5 pars interarticularis defects. Mild grade 1 retrolistheses at L1-L2, L2-L3, and L4-L5. Vertebral body heights are maintained. There is no suspicious osseous lesion. There is multilevel disc height loss; severe and eccentric to the left from L1 to L4, moderate to severe at T12-L1 and moderate at L5-S1 with multilevel vacuum disc phenomenon. Degenerative subchondral sclerosis and cystic change, most pronounced and eccentric to the left at L1-L2 and L3-L4 and eccentric to the right at L5-S1. Please not canal patency is not well assessed on this examination due to inherent limitations of CT without intrathecal contrast. Within these limitations, multilevel degenerative changes with level by level detail are as follows: T12-L1: Disc osteophyte complex with broad-based paracentral disc osteophyte protrusion and mild bilateral facet arthrosis. Mild spinal canal narrowing and right neural foraminal encroachment without left neural foraminal stenosis. L1-L2: Disc osteophyte complex with some extruded air within the left lateral recess and mild bilateral facet arthrosis with ligamentum flavum thickening. Apparent at least mild spinal canal narrowing and left greater than right subarticular zone stenosis. Moderate left and mild right neural foraminal stenosis. L2-L3: Disc osteophyte complex with moderate bilateral facet arthrosis. At least mild spinal canal stenosis and left greater than right subarticular zone narrowing. Mild to moderate left and mild right neural foraminal narrowing. L3-L4: Disc osteophyte complex with superiorly migrated extruded air within the right paracentral zone and moderate bilateral facet arthrosis with ligamentum flavum thickening. Apparent moderate spinal canal stenosis and bilateral subarticular zone narrowing. Moderate left and mild right neural foraminal stenosis with impingement upon the exiting left L3 nerve root. L4-L5: Annular disc bulge with moderate bilateral facet arthrosis and ligamentum flavum thickening. Epidural lipomatosis. Moderate to severe thecal sac effacement. Mild bilateral neural foraminal stenosis. L5-S1: Posterior disc uncovering with superiorly migrated extruded air in the right paracentral zone, disc osteophyte complex, and bilateral facet arthrosis. Epidural lipomatosis severely effaces the thecal sac. Severe bilateral neural foraminal stenosis with compression along the exiting right greater than left L5 nerve roots. There is mild fatty atrophy of the paraspinal musculature. Right lower pole renal cyst not requiring further imaging follow-up. Partially imaged fatty infiltration of the pancreas. The abdominal aorta is of normal contour and caliber. Partially imaged presumably degenerative subchondral cyst in the right supra-acetabular iliac bone. IMPRESSION: 1. Transitional lumbosacral anatomy with hypertrophy of the L5 transverse processes and pseudoarticulation with the sacral ala and degenerative changes on the right. 2. S-shaped lumbar curvature with multilevel listhesis, as described. 3. Advanced multilevel discogenic disease as above. 4. At L5-S1, there is 8 mm grade 1 anterolisthesis at L5-S1 secondary to chronic bilateral L5 pars interarticularis defects. Resultant severe bilateral neural foraminal stenosis with compression along the exiting right greater than left L5 nerve roots. 5. Epidural lipomatosis contributes to moderate to severe L4-L5 and severe L5-S1 thecal sac effacement. 6. At L3-L4, moderate spinal canal stenosis and moderate left neural foraminal stenosis with impingement upon the exiting left L3 nerve root. XR THORACOLUMBAR SPINE 04/24/23 CLINICAL INFORMATION: Change of simulation pattern. COMPARISON: Lumbar spine radiographs of 04/19/2022. FINDINGS: Lung volumes are low. Rightward curvature and advanced degenerative change in the partially imaged upper portion of the lumbar spine. Moderate multilevel degenerative changes in the thoracic spine are most notable in the [id number] thoracic spine. Spinal stimulator device overlies the posterior aspect of the lower thoracic spine with leads projecting approximately at the T7 level. IMPRESSION: 1. Spinal stimulator device overlies the posterior aspect of the lower thoracic spine with leads projecting approximately at the T7 level. 2. Moderate multilevel degenerative changes in the thoracic spine are most notable in the mid to lower thoracic spine. Assessment & Plan Assessment & Plan (1) Spinal stenosis of lumbar region with radiculopathy: Code(s): M48.061 - Spinal stenosis, lumbar region without neurogenic claudication; M54.16 - Radiculopathy, lumbar region (2) Osteoarthritis of hips, bilateral: Code(s): M16.0 - Bilateral primary osteoarthritis of hip (3) Sacroiliac joint pain: Code(s): M53.3 - Sacrococcygeal disorders, not elsewhere classified (4) Spondylosis of lumbar spine: Code(s): M47.816 - Spondylosis without myelopathy or radiculopathy, lumbar region (5) Chronic pain syndrome: Code(s): G89.4 - Chronic pain syndrome (6) Cervicalgia: Code(s): M54.2 - Cervicalgia Plan Patient is one week status post lumbar SCS trial with [facility]. Unfortunately, patient did not have a successful trial, providing him 30-40% pain relief and overall improvement of his symptoms. [facility] representatives, including Rene and Alfie, aggressively worked through SCS programs and kept in contact with patient 2-3 times/day during trial period. Patient did report good pain relief in his hips during resting but unsustainable following any activity. Dr. Lim has been updated with patient's SCS trial results. In regards to his neck pain, we will proceed with cervical spine xray to assess degree of arthritis and degenerative changes. Patient will discuss neck xray results and potential [place] [employer] SCS trial for chronic neck pain. For lower back and leg pain, patient is interested to proceed with neuromodulation with ITDD trial with Fentanyl with local and fluoroscopy. Expectations, risks and benefits were reviewed. Patient straight cath himself since previous lumbar RFA several years ago. Patient will review [employer] SCS trial for neck pain and ITDD trial/implant and its risks and benefits again with Dr. Lim during pain pump trial procedure visit. Patient is aware he will be contacted to schedule this procedure. All questions were answered and the patient is in agreement of plan. Follow-up after ITDD trial and sooner as needed. Orders: Orders XR cervical spine 3V Today G89.4 - Chronic pain syndrome, M54.2 - Cervicalgia Coding Level of Care Code Est Pt Level 4 (19059) Diagnoses Spinal stenosis of lumbar region with radiculopathy M48.061; M54.16 Osteoarthritis of hips, bilateral M16.0 Sacroiliac joint pain M53.3 Spondylosis of lumbar spine M47.816 Chronic pain syndrome G89.4 Cervicalgia M54.2
[2023-04-26 10:10] VITALS: BP 140/80; PULSE 71; O2SAT 99; BMI 29.1
== END 2023-04-26 10:45 | disposition home or self-care (01) ==
PROVIDERS: PCP Family Medicine; Visit Provider Nurse Practitioner Family
DX: M48.061 Spinal stenosis, lumbar region without neurogenic claudication (principal); M54.16 Radiculopathy, lumbar region; M16.0 Bilateral primary osteoarthritis of hip; M53.3 Sacrococcygeal disorders, not elsewhere classified; M47.816 Spondylosis without myelopathy or radiculopathy, lumbar region; G89.4 Chronic pain syndrome; M54.2 Cervicalgia
CPT/HCPCS: 99024

== ENCOUNTER → 2023-04-26 10:04 | Outpatient (BNVA) | payer BC, MEDICARE, MEDICAID, SELFPAY | PROVIDERS: PCP Family Medicine; Visit Provider Nurse Practitioner Family ==

== ENCOUNTER 2023-05-22 06:15 | Outpatient (REF) | payer BC, MEDICARE, MEDICAID, SELFPAY ==
--- NOTE | ~2023-05-22 | FL_ITS ---
EXAMINATION: XR FLUOROSCOPY WITH IMAGES CLINICAL INFORMATION: Chronic midline spine pain. COMPARISON: Lumbar spine radiographs dated 04/19/2022. TECHNIQUE: Fluoroscopy Supervised By: Dr. Napoleon Lim. Fluoroscopy Time: 0.4 minutes. Cumulative Dose: 13.6 mGy. DAP: 2.33 Gycm2. Images: 2. FINDINGS: The submitted images show an injection needle and injected epidural contrast at the posterior L2-L3 level. FL/FL guidance in treatment room IMPRESSION: Intraoperative fluoroscopic guidance is provided during lumbar spine pain management procedure. Please see the patient's Operative Report for full procedural details.
== END 2023-05-22 06:16 | disposition home or self-care (01) ==
LOC: CF 06:15
PROVIDERS: Visit Provider Anesthesiology
DX: M48.061 Spinal stenosis, lumbar region without neurogenic claudication (principal); M54.16 Radiculopathy, lumbar region; M16.0 Bilateral primary osteoarthritis of hip; M53.3 Sacrococcygeal disorders, not elsewhere classified; M47.816 Spondylosis without myelopathy or radiculopathy, lumbar region; M54.2 Cervicalgia; G89.4 Chronic pain syndrome
CPT/HCPCS: 62323; J3010; Q9967

== ENCOUNTER 2023-05-22 09:56 | Outpatient (AMB) | payer BC, MEDICARE, MEDICAID, SELFPAY ==
--- NOTE | 2023-05-22 10:02 | A.OFFVIS_ITS ---
Intake Vital Signs 05/22/23 10:03 05/22/23 11:11 BP 112/60 110/74 Blood Pressure Location Lt brachial Lt brachial Position Sitting Supine Respiration 14 14 Pulse 76 70 Pulse Source Pulse Oximeter Pulse Oximeter Pulse Oximetry (%) 97 98 Oxygen Delivery Method Room Air Room Air Intake Visit Reasons: ITDD TRIAL WITH [facility] Allergies oxycodone Adverse Reaction (Severe, Verified 05/22/23 10:03) vertigo sulfamethoxazole [From Bactrim] Adverse Reaction (Severe, Verified 05/22/23 10:03) AFIB trimethoprim [From Bactrim] Adverse Reaction (Severe, Verified 05/22/23 10:03) AFIB PFSH Medical History Osteoarthritis of hips, bilateral Hypothyroidism Hyperlipidemia Bipolar 1 disorder DVT (deep venous thrombosis) COVID-19 Lynette's thyroiditis Sacroiliac joint pain Bilateral lumbar radiculopathy Spondylosis of lumbar spine Bilateral hip pain Spondylolisthesis Social History Patient Tobacco Use Status: Never used Tobacco Physical Exam Vital Signs: Last Vital Signs Pulse 70 05/22/23 11:11 Resp 14 05/22/23 11:11 BP 110/74 05/22/23 11:11 Pulse Ox 98 05/22/23 11:11 Oxygen Delivery Method Room Air 05/22/23 11:11 Assessment & Plan Assessment & Plan (1) Spinal stenosis of lumbar region with radiculopathy: Code(s): M48.061 - Spinal stenosis, lumbar region without neurogenic claudication; M54.16 - Radiculopathy, lumbar region (2) Osteoarthritis of hips, bilateral: Code(s): M16.0 - Bilateral primary osteoarthritis of hip (3) Sacroiliac joint pain: Code(s): M53.3 - Sacrococcygeal disorders, not elsewhere classified (4) Spondylosis of lumbar spine: Code(s): M47.816 - Spondylosis without myelopathy or radiculopathy, lumbar region (5) Chronic pain syndrome: Code(s): G89.4 - Chronic pain syndrome Plan: Intrathecal pain pump trial Informed consent was explained to the patient. All questions were explained and answered.? The patient was taken inside of the operating room where he was positioned prone on the operating table.? Time-out was performed delineating patient's name and date of , correct site, side, the nature of the procedure, patient's allergy, preoperative antibiotic if needed.? All operating room staff And the patient were participating in OR time-out procedure. ?the patient's lower back was prepped with ChloraPrep and draped with sterile? utility draped.? Sterilely draped C-arm was brought over the operating field and sq picture of? lumbar vertebrae were delineated on the screen. the target of needle insertion was chosen between L2 and L3 vertebrae. The projection of the right lamina of the L3 vertebra was chosen as the starting point of the injection.? 22 gauge 3-1/2 inch needle pencil point Adams type was inserted through the skin after skin wheal was raised with lidocaine 2%.? The needle was directed to the interlaminar space.? The advancement of the needle was performed on intermittent anterior posterior and lateral views.? On anterior posterior view needle was kepped strictly in the midline.? On the lateral view needle entered in the projection of the center of the spinal canal.? At that moment the stylet was removed from the needle, however no clear flow CSF was detected in the needle hub. Several attempts were made to obtain CSF including Valsalva maneuver, patient's coughing, and bringing operating table into steep reverse Trendelenburg position. Unfortunately none of which resulted in CSF appearing at the hub of the needle. The lateral and AP views were checked on the lateral view the point of the needle was in the center of spinal canal and on the AP view the needle also was in the center of spinal canal. Injection of the contrast was performed Isovue M 3 mL which demonstrated myelogram.? After that? 3 mL of the solution containing 20 micro g of fentanyl was injected into the needle.? After that needle was removed sterile dressing was applied.? Patient tolerated procedure well.? He was taken outside of the operating room to the recovery room where he recovered uneventfully.? (6) Cervicalgia: Code(s): M54.2 - Cervicalgia Plan Patient is one week status post lumbar SCS trial with [facility]. Unfortunately, patient did not have a successful trial, providing him 30-40% pain relief and overall improvement of his symptoms. [facility] representatives, including Rene and Alfie, aggressively worked through SCS programs and kept in contact with patient 2-3 times/day during trial period. Patient did report good pain relief in his hips during resting but unsustainable following any activity. Dr. Lim has been updated with patient's SCS trial results. In regards to his neck pain, we will proceed with cervical spine xray to assess degree of arthritis and degenerative changes. Patient will discuss neck xray results and potential [employer] SCS trial for chronic neck pain. For lower back and leg pain, patient is interested to proceed with neuromodulation with ITDD trial with Fentanyl with local and fluoroscopy. Expectations, risks and benefits were reviewed. Patient straight cath himself since previous lumbar RFA several years ago. Patient will review everyArt SCS trial for neck pain and ITDD trial/implant and its risks and benefits again with Dr. Lim during pain pump trial procedure visit. Patient is aware he will be contacted to schedule this procedure. All questions were answered and the patient is in agreement of plan. Follow-up after ITDD trial and sooner as needed. Orders: Orders FL guidance in treatment room 05/22/23 G89.4 - Chronic pain syndrome Coding Level of Care Code Procedure Only Diagnoses Spinal stenosis of lumbar region with radiculopathy M48.061; M54.16 Osteoarthritis of hips, bilateral M16.0 Sacroiliac joint pain M53.3 Spondylosis of lumbar spine M47.816 Chronic pain syndrome G89.4 Cervicalgia M54.2
[2023-05-22 10:03] VITALS: BP 112/60; PULSE 76; RESP 14; O2SAT 97
[2023-05-22 11:11] VITALS: BP 110/74; PULSE 70; RESP 14; O2SAT 98
== END 2023-05-22 11:33 | disposition home or self-care (01) ==
LOC: HO.PMCPRC 09:56
PROVIDERS: PCP Family Medicine; Visit Provider Anesthesiology
DX: M54.16 Radiculopathy, lumbar region (principal)
CPT/HCPCS: 62323

== ENCOUNTER 2023-05-30 09:59 | Outpatient (AMB) | payer BC, MEDICAID, SELFPAY ==
--- NOTE | 2023-05-30 10:02 | MHC.OFFVIS ---
Intake Vital Signs 05/30/23 10:08 Height 5 ft 7 in Weight 186 lb BMI 29.1 BP 130/78 Blood Pressure Location Lt brachial Position Sitting Respiration 14 Pulse 79 Pulse Source Pulse Oximeter Pulse Oximetry (%) 99 Oxygen Delivery Method Room Air Intake Visit Reasons: ITDD TRIAL/05/22/23 Intake Note: Patient comes in for post-op appointment. Reports pain 710. Allergies oxycodone Adverse Reaction (Severe, Verified 05/30/23 10:07) vertigo sulfamethoxazole [From Bactrim] Adverse Reaction (Severe, Verified 05/30/23 10:07) AFIB trimethoprim [From Bactrim] Adverse Reaction (Severe, Verified 05/30/23 10:07) AFIB HPI HPI Comments History of Present Illness Details Carlito is back in my office after a trial of intrathecal pain pump, he reports 28 hours of 80% pain improvement after injection of 20 micro g of fentanyl diluted in 3 cc of normal saline into the intrathecal space. There is very minimal CSF output found on the trial. I had to inject intrathecally Isovue-M contrast to demonstrate myelogram before injecting the med. He reports 28 hours of profound pain relief. He reports better mobility better activities of daily living, he reports better social interactions. After 28 hours pain gradually went back to pre- injection level. Patient wants to go for implantation of intrathecal pain pump. I explained to the patient that due to paucity of his CSF I may try the procedure however it is possible that if I will not find any CSF output from the catheter I would have to abandoned the procedure. Patient understood Past Procedures: 04/20/23: Lumbar [facility] SCS trial-30-40% pain relief PRIOR: Patient presents today for follow up to discuss spinal cord stimulation trial and implant for chronic back pain. He was re-evaluated by [facility] after lumbar spine CT scan and discussed thoracolumbar junction fusion which both surgeons and patient does not want to proceed as this would not provide him significant pain relief. He was referred back to us by Neurosurgery office for potential SCS trial discussion. This was discussed previously and again today in greater details. We also discussed ITDD pain pump trial and implant as back up option. Patient is not taking any opioids now and might pursue this option with his PCP to assess his opioid tolerance and pain relief for future ITDD trial and implant if SCS does not provide him significant pain relief. The trialed and failed therapy has been reviewed with the patient and his . The risks, consequences, alternatives, and benefits of various treatment options were discussed with the patient in great detail, including conservative management, injections and procedures. Referral placed for psychology clearance in anticipation of SCS trial. PRIOR: Patient presents today to assess response to Bilateral intra-articular hip steroid injections on 07/11/[address] Lim. Patient reports 70% for left hip and 90% for right hip pain relief for following the procedure with improvement in his weight bearing tolerance, functioning and partially improved sleep. He continues to endorse low back pain due to significant degenerative changes and scoliosis. Patient was recently evaluated by our colleagues at [facility] on 08/03/22 after completing lumbar spine MRI on 07/12/22 with the full report noted below. Patient was discussed for fusion surgery after evaluating anatomical variance in his lumbar spine with a non-contrast lumbar CT. This has not been scheduled yet. Denies any recent cough, cold, infection, fever or other significant changes in medical history since last office visit. Patient denies any bladder or bowel incontinence or saddle anesthesia. Patient reports he is planning to go on vacation in September and is concerned for increase in pain for prolonged sitting for over [address] flight[address] We will prescribe short script of Vicodin as patient has tolerated this well in the past. Aware of allergy to oxycodone. PRIOR: Carlito is a pleasant 66 year old male who presents to the office with 40 year history of widespread pain. He is accompanied by his Arlin today. He reports severe persistent and progressively worsening lower back pain with radiation into BLE with associated numbness and tingling. He also notes severe axial pain that radiates into bilateral hips L>R. He denies any saddle anesthesia, weakness or bowel dysfunction. He does self cath which he attributes to lumbar RFA, as the symptoms started 2 weeks post procedure. He states his PCP recently ordered a lumbar spine MRI which will be performed on the at [place]. He also reports a pelvic fracture in 2007. He has been evaluated by [facility] pain management and [facility]. He has had multiple interventions performed including HAILY, ablations as well as chiropractic manipulation, acupuncture, TENS unit and physical therapy with varying pain relief but no significant outcomes. He was also evaluated by [facility] and deemed not a surgical candidate. He has also trialed multiple oral and topical medications with minimal relief including tylenol, flexeril, gabapentin, as well as lidocaine patches and tiger balm with little to no relief. He is currently managed on cymbalta, Carbamazepine and topamax with less than adequate alleviation in symptoms. He reports his pain onset was gradual, constant and rates the pain a 5-10/10. His pain is aggravated by prolonged positioning as well as standing. He does note have a shuffling and slow gait. In terms of tissue damage he describes his pain as aching, shooting, numb as well as tiring and burning. He reports the pain is negatively impacting his general activity, mood, recreational activities, sleep and walking. His past medical history of consistent for Lynette's thyroiditis, COVID-19, DVT, Bipolar 1, Hyperlipidemia, hypothyroidism. [facility] Medical History Osteoarthritis of hips, bilateral Hypothyroidism Hyperlipidemia Bipolar 1 disorder DVT (deep venous thrombosis) COVID-19 Lynette's thyroiditis Sacroiliac joint pain Bilateral lumbar radiculopathy Spondylosis of lumbar spine Bilateral hip pain Spondylolisthesis Social History Patient Tobacco Use Status: Never used Tobacco Review of Systems Const All systems reviewed & are unremarkable except as noted in HPI and below ENT Reports Normal hearing present Neuro Reports Normal hearing present, Denies Abnormal speech present and Denies confusion Psych Denies confusion Physical Exam Vital Signs: Last Vital Signs Pulse 79 05/30/23 10:08 Resp 14 05/30/23 10:08 BP 130/78 05/30/23 10:08 Pulse Ox 99 05/30/23 10:08 Oxygen Delivery Method Room Air 05/30/23 10:08 BMI result Body Mass Index 29.1 Const General: cooperative, healthy appearing, comfortable, no acute distress, alert and well groomed; No confusion Orientation/consciousness: patient oriented x3 and No confusion HEENT Head: Yes normocephalic and Yes atraumatic Ears: hearing grossly normal bilaterally Eyes General: appearance normal, both eyes and all related structures Eyelids: Yes eyelids normal Pupils: Equal, round and reactive pupils present EOM: EOMs intact bilaterally Neck Neck: Yes normal visual inspection and Yes no JVD Resp Effort & Inspection: normal respiratory effort, able to speak in complete sentences and no audible wheezes Cardio Jugular venous distension: no JVD Neuro General: patient oriented x3, moves all extremities and No confusion Cranial nerves: Yes Equal, round and reactive pupils present and Yes Normal hearing present Cognition (Neuro): normal cognition Speech: No Abnormal speech present Psych Appearance: grossly normal Mental Status: mental status grossly normal Speech and movement: Normal speech and movement present Affect: normal affect Attitude: cooperative Thought process: Normal thought process present Thought content: Normal thought content present Insight: Good insight present (Psych) Judgement: Good judgement present (Psych) Assessment & Plan Assessment & Plan (1) Spinal stenosis of lumbar region with radiculopathy: Code(s): M48.061 - Spinal stenosis, lumbar region without neurogenic claudication; M54.16 - Radiculopathy, lumbar region (2) Osteoarthritis of hips, bilateral: Code(s): M16.0 - Bilateral primary osteoarthritis of hip (3) Sacroiliac joint pain: Code(s): M53.3 - Sacrococcygeal disorders, not elsewhere classified (4) Spondylosis of lumbar spine: Code(s): M47.816 - Spondylosis without myelopathy or radiculopathy, lumbar region (5) Chronic pain syndrome: Code(s): G89.4 - Chronic pain syndrome (6) Cervicalgia: Code(s): M54.2 - Cervicalgia Plan [facility] trial resulted in only 30% pain improvement. Pain pump trial results are as above. 80% pain improvement for the 28 hours. This is on 20 micro g of fentanyl. Patient would like to proceed for the pain pump implant. Patient understands that pain pump will only control pain below the level of the waist. Patient also understood that due to paucity of CSF the procedure could be aborted if there is no significant output of CSF found in intrathecal catheter after the insertion of the device. He still reports urinary retention and need for self catheterization however the fentanyl dose of 20 micro g did not increase the need for self catheterization. I still am very interested in seeing what procedures this patient had with [facility] pain management. We requested the entire records however we are still waiting for the records to come. He understands that control his cervicalgia we might employ spinal cord stimulator [employer] or [employer]. Patient Instructions: I here by testify that I spent 38 minutes in conversation with this patient as well as planning his care and organizing this note. Coding Level of Care Code Est Pt Level 4 (24561) Diagnoses Spinal stenosis of lumbar region with radiculopathy M48.061; M54.16 Osteoarthritis of hips, bilateral M16.0 Sacroiliac joint pain M53.3 Spondylosis of lumbar spine M47.816 Chronic pain syndrome G89.4 Cervicalgia M54.2
[2023-05-30 10:08] VITALS: BP 130/78; PULSE 79; RESP 14; O2SAT 99; BMI 29.1
== END 2023-05-30 10:47 | disposition home or self-care (01) ==
PROVIDERS: PCP Family Medicine; Visit Provider Anesthesiology
DX: M48.061 Spinal stenosis, lumbar region without neurogenic claudication (principal); M54.16 Radiculopathy, lumbar region; M16.0 Bilateral primary osteoarthritis of hip; M53.3 Sacrococcygeal disorders, not elsewhere classified; M47.816 Spondylosis without myelopathy or radiculopathy, lumbar region; G89.4 Chronic pain syndrome; M54.2 Cervicalgia
CPT/HCPCS: 99214

== ENCOUNTER → 2023-05-30 09:59 | Outpatient (BNVA) | payer BC, MEDICARE, MEDICAID, SELFPAY | PROVIDERS: PCP Family Medicine; Visit Provider Anesthesiology ==

== ENCOUNTER 2023-08-10 06:03 | Day surgery (SDC) | payer MEDICARE, OTHER, SELFPAY ==
--- NOTE | 2023-08-08 14:39 | P.CONAN_ITS ---
Documented by User: Amber Weaver NP 08/08/23 14:41 HPI - Anesthesia Eval Consult details Narrative: 68yo M for Intrathecal Drug Delivery Implant of Pain Pump s/p spinal stim trial 04/2023 with [facility] PMF[facility] Active Problems Active Problems: All Active Problems Cervicalgia (Acute) Chronic pain syndrome (Acute) Spinal cord stimulator dysfunction (Acute) Spinal stenosis of lumbar region with radiculopathy (Acute) Osteoarthritis of hips, bilateral (Acute) Epidural lipomatosis (Acute) Sacroiliac joint pain (Acute) Bilateral lumbar radiculopathy (Acute) Spondylosis of lumbar spine (Acute) Bilateral hip pain (Acute) Spondylolisthesis (Acute) Muscle spasm (Acute) Past Medical History Medical History Osteoarthritis of hips, bilateral Hypothyroidism Hyperlipidemia Bipolar 1 disorder DVT (deep venous thrombosis) COVID-19 Lynette's thyroiditis Sacroiliac joint pain Bilateral lumbar radiculopathy Spondylosis of lumbar spine Bilateral hip pain Spondylolisthesis Family History Family history of problems with anesthesia: No Surgical History Surgical History (Updated 08/10/23 @ 06:16 by Milly Mcelroy RN) Hx of umbilical hernia repair Hx of colonoscopy History of Problems with Anesthesia: No Social History Social History Patient Tobacco Use Status: Never used Tobacco Are you DNR?: No Advance Directives: No Advance Directives Information Provided: Yes Nutrition Risks: No Nutritional Risk Meds Allergies Allergy/AdvReac Type Severity Reaction Status Date / Time oxycodone AdvReac Severe vertigo Verified 08/10/23 06:15 sulfamethoxazole AdvReac Severe AFIB Verified 08/10/23 06:15 [From Bactrim] trimethoprim [From Bactrim] AdvReac Severe AFIB Verified 08/10/23 06:15 Home Medications ?Medication ?Instructions ?Recorded ?Confirmed ?Last Taken ?Type carbamazepine 200 mg tablet 200 mg PO BID 05/27/21 08/10/23 Unknown History (Tegretol) cholecalciferol (vitamin D3) 250 250 mcg PO DAILY 05/27/21 08/10/23 Unknown History mcg (10,000 unit) capsule duloxetine 30 mg capsule,delayed 30 mg PO DAILY 05/27/21 08/10/23 Unknown History release duloxetine 60 mg capsule,delayed 60 mg PO DAILY 05/27/21 08/10/23 Unknown History release echinacea 380 mg capsule 380 mg PO DAILY 05/27/21 08/10/23 Unknown History levothyroxine 50 mcg tablet 50 mcg PO DAILY 05/27/21 08/10/23 08/10/23 History melatonin 10 mg capsule 10 mg PO BEDTIME PRN Insomnia 05/27/21 08/10/23 Unknown History metoprolol tartrate 25 mg tablet 25 mg PO BID 05/27/21 08/10/23 04/20/23 History pantoprazole 40 mg tablet,delayed 40 mg PO BID 05/27/21 08/10/23 Unknown History release topiramate 25 mg tablet 25 mg PO BID 05/27/21 08/10/23 Unknown History Assessment and Plan Assessment Anesthesia Assessment: Chart Reviewed Final Anesthetic Review Family History of Problems with Anesthesia: No History of Problems with Anesthesia: No Documented by User: Kulwant Padilla MD 08/10/23 08:14 [facility] Past Medical History Medical History Osteoarthritis of hips, bilateral Hypothyroidism Hyperlipidemia Bipolar 1 disorder DVT (deep venous thrombosis) COVID-19 Lynette's thyroiditis Sacroiliac joint pain Bilateral lumbar radiculopathy Spondylosis of lumbar spine Bilateral hip pain Spondylolisthesis Surgical History Surgical History (Updated 08/10/23 @ 06:16 by Milly Mcelroy RN) Hx of umbilical hernia repair Hx of colonoscopy Social History Social History Patient Tobacco Use Status: Never used Tobacco Are you DNR?: No Advance Directives: No Advance Directives Information Provided: Yes Nutrition Risks: No Nutritional Risk Meds Allergies Allergy/AdvReac Type Severity Reaction Status Date / Time oxycodone AdvReac Severe vertigo Verified 08/10/23 06:15 sulfamethoxazole AdvReac Severe AFIB Verified 08/10/23 06:15 [From Bactrim] trimethoprim [From Bactrim] AdvReac Severe AFIB Verified 08/10/23 06:15 Home Medications ?Medication ?Instructions ?Recorded ?Confirmed ?Last Taken ?Type carbamazepine 200 mg tablet 200 mg PO BID 05/27/21 08/10/23 Unknown History (Tegretol) cholecalciferol (vitamin D3) 250 250 mcg PO DAILY 05/27/21 08/10/23 Unknown History mcg (10,000 unit) capsule duloxetine 30 mg capsule,delayed 30 mg PO DAILY 05/27/21 08/10/23 Unknown History release duloxetine 60 mg capsule,delayed 60 mg PO DAILY 05/27/21 08/10/23 Unknown History release echinacea 380 mg capsule 380 mg PO DAILY 05/27/21 08/10/23 Unknown History levothyroxine 50 mcg tablet 50 mcg PO DAILY 05/27/21 08/10/23 08/10/23 History melatonin 10 mg capsule 10 mg PO BEDTIME PRN Insomnia 05/27/21 08/10/23 Unknown History metoprolol tartrate 25 mg tablet 25 mg PO BID 05/27/21 08/10/23 04/20/23 History pantoprazole 40 mg tablet,delayed 40 mg PO BID 05/27/21 08/10/23 Unknown History release topiramate 25 mg tablet 25 mg PO BID 05/27/21 08/10/23 Unknown History Exam Airway Mallampati Class: I TM Dist: >3cm Neck ROM: Full Loose/Missing/Broken Teeth: Yes and Upper Heart: ok Lungs: ok Assessment and Plan Assessment Anesthesia Assessment: Anesthesia Plan Discussed Final Anesthetic Review NPO: Yes ASA Class: II Final Preanesthetic Review: No Changes in Pt Med Stat, Meds/Allgs Chart Reviewed, Consent Obtained/Reviewed and Anes Risks/Benef Reviewed Patient Risk: Intermediate Procedure Risk: Intermediate Anesthetic Plan Anesthetic Plan: GA and Agree w/ Assess. and Plan Disposition: Standard PACU
[2023-08-10] VITALS (7 sets, daily range): BP systolic 127–140; BP diastolic 72–85; PULSE 64–74; RESP 12–66; TEMP 36.1–36.7; O2SAT 97–100; BMI 28.5
--- NOTE | ~2023-08-10 | FL_ITS ---
EXAMINATION: XR FLUOROSCOPY WITH IMAGES CLINICAL INFORMATION: Pump pain. COMPARISON: None available. TECHNIQUE: Fluoroscopy Supervised By: Dr. Napoleon Lim. Fluoroscopy Time: 1 minute 1.6 seconds. Cumulative Dose: 24.332 mGy. DAP: 7.0170 Gy-cm2. Images: 91. FINDINGS: Intraoperative fluoroscopy and spot films were performed during a procedure in the OR. Multiple images demonstrate a needle and catheter/probe entering the spinal canal. Notes included with the procedure state that the surgery was unsuccessful. Please correlate with Dr. Napoleon Lim's report for complete details. FL/FL guidance in OR IMPRESSION: Intraoperative fluoroscopy and spot films were obtained. Please see Dr. Napoleon Lim's report for complete details.
[2023-08-10] MEDS: Lactated Ringers 1,000 ML 100 ML IVCONT (06:24)
--- NOTE | 2023-08-10 07:02 | P.HPSUR_ITS ---
Pre-Procedural Eval Section A - 24 Hr Update-Section A only Date of Service: 08/10/23 The patient is an INPATIENT: No Changes since office visit: Yes Patient answered all questions The patient has been examined within 24 hours of the surgical procedure. The History & Physical has been completed within 30 days and I have reviewed it.: No Section B - Complete if H&P > 30 days Chief Complaint: Radiculopathy,spinal stenosis,chronic pain Details of Present Illness: as above Present Medications: None Medical History: No relevant PMH History of Previous Operations: Relevant previous surgery/procedure and date(s) (RFA lumbar) Allergies: Allergies Allergy/AdvReac Type Severity Reaction Status Date / Time oxycodone AdvReac Severe vertigo Verified 08/10/23 06:15 sulfamethoxazole AdvReac Severe AFIB Verified 08/10/23 06:15 [From Bactrim] trimethoprim [From Bactrim] AdvReac Severe AFIB Verified 08/10/23 06:15 Review of Systems Sugical H&P ROS: Negative: Constitution, Cardiovascular, Respiratory, Neuro logical, Psychiatric, Hem-Onc, Allergic/Immunologic, Gastrointestinal, Integumentary, Endocrine and Eyes/Ears/Nose/Throat and Yes, Specify: Genitourinary (urinary incontinence and retention due to yatrogenic cauda equina syndrome.) and Musculoskeletal (as above ) Exam Surgical H&P Exam: Normal: HEENT, Normal: Heart, Normal: Lungs, Normal: Extremities, Normal: Abdomen, Normal: Skin and Normal: Neurological Plan Diagnosis/Plan: Unchanged I have reviewed the history and physical and performed a pertinent physical examination on my patient. No changes have occurred unless specified. Time Spent With Patient Time: Total time managing care of this patient today __5__ minutes.
--- NOTE | 2023-08-10 09:42 | PM.OP ---
Brief Operative Note Date of Service: 08/10/23 Pre-op diagnosis: Chronic pain syndrome, scoliosis lumbar, spinal stenosis, radiculopathy lumbar. Post-op diagnosis: same Procedure: Attempt at implantation of intrathecal drug delivery system pain pump [employer] SynchroMed III. Implants: NONE Surgeon: Napoleon Lim MD Anesthesia: GLMA Was an Equipment Hire Manager used for this Procedure?: No Estimated blood loss (mL): 10 Pathology: none sent Condition: stable Disposition: PACU
--- NOTE | 2023-08-10 09:43 | P.OP_ITS ---
Operative Note Operative Note Date of Service: 08/10/23 Narrative: Attempt at insertion of the intrathecal pain pump SynchroMed III, MEDTRONICSRoel Esteban is very pleasant 68 years old gentleman who is suffering from severe scoliosis of the lumbar spine, severe spondylosis of lumbar spine sp ondylolisthesis of the lumbar spine as well as chronic pain syndrome came today to the operating room to perform implantation of intrathecal drug delivery system pain pump [employer] SynchroMed III. He has had a trial of intrathecal drug delivery system pain pump were the needle positioned at L2-L3 interlaminar space was delivered to the center of the spinal canal on anterior posterior and lateral views resulted in no CSF flow. During the trial I injected contrast and contrast was demonstrating intrathecal space. Injection of 20 micro g of fentanyl followed and patient received 28 hours of complete pain relief, after that pain started to come back slowly. The patient was scheduled for the implantation of the device today. Informed consent was fully explained to the patient before the procedure, risk of bleeding infection peripheral nerve damage and spinal cord damage were explained to the patient. The possibility of the failure of the establishing drug delivery system for the patient was explained to him before the procedure. The patient was taken to the operating room, [employer] [employer] monitors were applied, the patient was prone on the operating table when general anesthesia was induced and LMA airway was established. After that the patient's lower back was prepped with ChloraPrep and draped with sterile utility drapes following placement of the fenestrated full body drape and [place] film. Sterilely draped C-arm was brought over the operating field and sq picture of the L1-L2 vertebra were demonstrated on the screen. The incision from the projection of the spinous process of L1 to the spinous process of L3 6 cm long was performed, the wound was deepened and widened using electrocautery. Thorough hemostasis was obtained. 14 gauge introducer intrathecal needle was inserted in the projection of the upper portion of the right L2 lamina as close to the spinous process as possible. The advancement of the needle was performed on anterior posterior and lateral view intermittent. When tip of the needle was demonstrated on anterior posterior view in the center of the spinal canal and in the center of the spinal canal in the projection of the lateral view the stylette was removed from the needle. Unfortunately I did not see any CSF coming. Isovue-M 200 contrast was obtained and was injected into the needle. Epidural spread of the contrast in the posterior epidural space was demonstrated on lateral view. T the needle was withdrawn slightly and injection of the Isovue contrast was repeated now demonstrating myelogram. Intrathecal catheter was obtained and it was advanced in what we thought renew originally an intrathecal space to were the projection of the T9 vertebral body in the thoracic spine. The aspiration of the intrathecal catheter resulted in no CSF flow into the 3 cc syringe. Injection of the Isovue-M contrast demonstrated the catheter positioned in the posterior epidural space.. The catheter was withdrawn en mass with intrathecal needle the wound was expanded slightly caudad, the total length of the wound now became 10 cm. The same attempt to reach intrathecal space was performed in the L2-L3 interlaminar space. Again we did not see any CSF coming from the needle hub and attempts to insert the intrathecal catheter through the needle positioned in the center of the spinal canal in both anterior posterior and lateral views failed to navigate into the intrathecal space. At this moment we decided to abort the procedure thorough hemostasis was obtained. The wound was closed with 0 -0 Polysorb suture, 2-0 Polysorb suture was used to approximate the level of the skin, the eyad were applied to the level of the skin. Bacitracin was applied and sterile dressing with sterile 4 x 4 and Tegaderm was applied. The patient was awakened, LMA was removed and he was transferred stable to PACU.
[2023-08-10] MEDS: Acetaminophen 325 MG TABLET 650 MG PO (10:22)
== END 2023-08-10 10:52 | disposition home or self-care (01) ==
PROVIDERS: PCP Family Medicine; Visit Provider Anesthesiology
PROC: (CPT 62362; principal; 2023-08-10 07:30)
DX: M48.061 Spinal stenosis, lumbar region without neurogenic claudication (principal); G96.00 Cerebrospinal fluid leak, unspecified; Z53.8 Procedure and treatment not carried out for other reasons; G89.4 Chronic pain syndrome; M43.16 Spondylolisthesis, lumbar region; M54.16 Radiculopathy, lumbar region; M47.816 Spondylosis without myelopathy or radiculopathy, lumbar region; M54.2 Cervicalgia; M41.86 Other forms of scoliosis, lumbar region; M16.0 Bilateral primary osteoarthritis of hip; M53.3 Sacrococcygeal disorders, not elsewhere classified; Z98.890 Other specified postprocedural states; Z79.899 Other long term (current) drug therapy; Z88.2 Allergy status to sulfonamides; Z88.5 Allergy status to narcotic agent
CPT/HCPCS: 62362; C1755; J0665; J0690; J2250; J2704; J3010; J3370; Q9967

== ENCOUNTER → 2023-08-10 06:03 | Outpatient (BNV) | payer MEDICARE, MEDICAID, SELFPAY | PROVIDERS: PCP Family Medicine; Visit Provider Anesthesiology | DX: G89.4 Chronic pain syndrome (principal); M48.061 Spinal stenosis, lumbar region without neurogenic claudication | CPT/HCPCS: 62362 ==

== ENCOUNTER 2023-08-20 10:11 | Outpatient (AMB) | payer BC, MEDICAID, SELFPAY ==
[2023-08-20 10:22] VITALS: BP 142/74; PULSE 65; O2SAT 97; BMI 28.8
--- NOTE | 2023-08-20 10:22 | A.OFFVIS_ITS ---
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 Lim. Due to difficulty navigating intrathecal catheter into intrathecal space, procedure was aborted per Dr. Lim. Patient presents today for dressing change and discussion of next steps with Dr. Lim. Plan to proceed with ITDD implant at L1-L2 with neurosurgical laminectomy with Dr. Feldman to re-attempt ITDD implant as patient did report significant pain relief without side effects and improvement in his functioning, sleep, mobility and social interactions. The midline dressing was removed. The onesimo are intact. The wound is clean, no pathological discharge, no redness, no swelling, no local temperature or tenderness on palpation. The wound was washed with ChloraPrep and bacitracin ointment with dry sterile dressings were applied. Past Procedures: 08/10/23: Attempt of ITDD implant-0% pain relief, procedure aborted 05/22/23: ITDD trial with Fentanyl -80% pain relief for 28 hours 04/20/23: Lumbar Nevro SCS trial-30-40% pain relief PRIOR Dr. Lim: Carlito is back in my office after a trial of intrathecal pain pump, he reports 28 hours of 80% pain improvement after injection of 20 micro g of fentanyl diluted in 3 cc of normal saline into the intrathecal space. There is very minimal CSF output found on the trial. I had to inject intrathecally Isovue-M contrast to demonstrate myelogram before injecting the med. He reports 28 hours of profound pain relief. He reports better mobility better activities of daily living, he reports better social interactions. After 28 hours pain gradually went back to pre- injection level. Patient wants to go for implantation of intrathecal pain pump. I explained to the patient that due to paucity of his CSF I may try the procedure however it is possible that if I will not find any CSF output from the catheter I would have to abandoned the procedure. Patient understood Past Procedures: 04/20/23: Lumbar Nevro SCS trial-30-40% pain relief PRIOR: Patient presents today for follow up to discuss spinal cord stimulation trial and implant for chronic back pain. He was re-evaluated by [facility] after lumbar spine CT scan and discussed thoracolumbar junction fusion which both surgeons and patient does not want to proceed as this would not provide him significant pain relief. He was referred back to us by Neurosurgery office for potential SCS trial discussion. This was discussed previously and again today in greater details. We also discussed ITDD pain pump trial and implant as back up option. Patient is not taking any opioids now and might pursue this option with his PCP to assess his opioid tolerance and pain relief for future ITDD trial and implant if SCS does not provide him significant pain relief. The trialed and failed therapy has been reviewed with the patient and his . The risks, consequences, alternatives, and benefits of various treatment options were discussed with the patient in great detail, including conservative management, injections and procedures. Referral placed for psychology clearance in anticipation of SCS trial. PRIOR: Patient presents today to assess response to Bilateral intra-articular hip steroid injections on 07/11/[address] Lmi. Patient reports 70% for left hip and 90% for right hip pain relief for following the procedure with improvement in his weight bearing tolerance, functioning and partially improved sleep. He continues to endorse low back pain due to signi ficant degenerative changes and scoliosis. Patient was recently evaluated by our colleagues at [facility] on 08/03/22 after completing lumbar spine MRI on 07/12/22 with the full report noted below. Patient was discussed for fusion surgery after evaluating anatomical variance in his lumbar spine with a non- contrast lumbar CT. This has not been scheduled yet. Denies any recent cough, cold, infection, fever or other significant changes in medical history since last office visit. Patient denies any bladder or bowel incontinence or saddle anesthesia. Patient reports he is planning to go on vacation in September and is concerned for increase in pain for prolonged sitting for over [address] flight[address] We will prescribe short script of Vicodin as patient has tolerated this well in the past. Aware of allergy to oxycodone. PRIOR: Carlito is a pleasant 66 year old male who presents to the office with 40 year history of widespread pain. He is accompanied by his Arlin today. He reports severe persistent and progressively worsening lower back pain with radiation into BLE with associated numbness and tingling. He also notes severe axial pain that radiates into bilateral hips L>R. He denies any saddle anesthesia, weakness or bowel dysfunction. He does self cath which he attributes to lumbar RFA, as the symptoms started 2 weeks post procedure. He states his PCP recently ordered a lumbar spine MRI which will be performed on the at [facility]. He also reports a pelvic fracture in 2007. He has been evaluated by [facility] pain management and [facility]. He has had multiple interventions performed including HAILY, ablations as well as chiropractic manipulation, acupuncture, TENS unit and physical therapy with varying pain relief but no significant outcomes. He was also evaluated by [facility] and deemed not a surgical candidate. He has also trialed multiple oral and topical medications with minimal relief including tylenol, flexeril, gabapentin, as well as lidocaine patches and tiger balm with little to no relief. He is currently managed on cymbalta, Carbamazepine and topamax with less than adequate alleviation in symptoms. He reports his pain onset was gradual, constant and rates the pain a 5-10/10. His pain is aggravated by prolonged positioning as well as standing. He does note have a shuffling and slow gait. In terms of tissue damage he describes his pain as aching, shooting, numb as well as tiring and burning. He reports the pain is negatively impacting his general activity, mood, recreational activities, sleep and walking. His past medical history of consistent for Lynette's thyroiditis, COVID-19, DVT, Bipolar 1, Hyperlipidemia, hypothyroidism. [facility] Medical History Osteoarthritis of hips, bilateral Hypothyroidism Hyperlipidemia Bipolar 1 disorder DVT (deep venous thrombosis) COVID-19 Lynette's thyroiditis Sacroiliac joint pain Bilateral lumbar radiculopathy Spondylosis of lumbar spine Bilateral hip pain Spondylolisthesis Surgical History Hx of umbilical hernia repair Hx of colonoscopy Social History Patient Tobacco Use Status: Never used Tobacco Review of Systems Const All systems reviewed & are unremarkable except as noted in HPI and below Physical Exam Vital Signs: Last Vital Signs Pulse 65 08/20/23 10:22 BP 142/74 H 08/20/23 10:22 Pulse Ox 97 08/20/23 10:22 Oxygen Delivery Method Room Air 08/20/23 10:22 BMI result Body Mass Index 28.8 General: Appears afebrile. Alert and oriented. Mood and affect appropriate. Follows and participates in conversation appropriately. Respiratory effort is unlabored. Able to transition from sit to stand unassisted. Ambulates with bilaterally normal heel strike and toe off. General: Yes no CVA tenderness Back/Spine/Pelvis Other: Midline incisional wound-No pathological discharge, no swelling and no erythema.?Onesimo intact. Dressing was changed today in the clinic. Back: no CVA tenderness Cervical Spine: cervical muscular tenderness, pain with cervical ROM and No Cervical spine tenderness Thoracic/Lumbar Spine: thoracic and lumbar spine normal to inspection, Lasegue's sign negative, straight leg raise negative bilaterally, pain with thoraco-lumbar ROM, thoraco-lumbar ROM limited, No thoracic spinal tenderness and lumbar spinal tenderness at L4 and at L5 Pelvis: no buttock tenderness Results Reviewed Results Reviewed: XR PELVIS 04/19/22 FINDINGS: Moderate degenerative changes of the left hip. Mild degenerative changes of the right hip. IMPRESSION: Moderate degenerative changes of the left hip. Mild degenerative changes of the right hip. MR LUMBAR SPINE WITHOUT CONTRAST 07/12/22 FINDINGS: S-shaped lumbar scoliosis with mild dextrocurvature, apex at L1-L2 and levocurvature, apex at L4-L5. There is straightening of the normal lumbar lordosis. 9 mm grade 2 anterolisthesis at L5-S1 secondary to chronic bilateral L5 pars interarticularis defects. Otherwise, diffuse stepwise grade 1 retrolistheses throughout the lumbar spine. Vertebral body heights are maintained. There is no suspicious osseous lesion. Diffuse disc desiccation and severe disc height loss with relative sparing at L4-L5. Multilevel predominantly type II Modic endplate changes with intermixed type I Modic endplate changes, most pronounced at L1-L2. Multilevel anterior osteophytic spurring is seen. There is congenital spinal canal stenosis on the basis of short pedicles with either crowding of the epidural fat or superimposed epidural lipomatosis. Multilevel degenerative changes with level by level detail as follows: T12-L1: Disc osteophyte complex with early migrated broad-based left paracentral disc extrusion. Mild bilateral facet arthrosis and ligamentum flavum thickening. Mild spinal canal and mild right without left neural foraminal stenosis. L1-L2: Disc osteophyte complex and likely small superiorly migrated left subarticular disc extrusion. Mild to moderate facet arthrosis. Moderate spinal canal stenosis and bilateral subarticular zone narrowing with mass effect along the traversing left L2 nerve root. Mild bilateral neural foraminal stenosis with impingement upon the extraforaminal right L1 nerve root. L2-L3: Disc osteophyte complex with likely superimposed small inferiorly migrated left subarticular disc extrusion and moderate bilateral facet arthrosis with ligamentum flavum thickening. Circumferential prominence/crowding of the epidural fat. Moderate to severe spinal canal stenosis. Mild to moderate left and mild right neural foraminal stenosis. L3-L4: Disc osteophyte complex. Moderate bilateral facet arthrosis and ligamentum flavum thickening. Circumferential prominence/crowding of the epidural fat. 7 mm hypointense focus above the level of the disc space in the right paracentral region favored to reflect extruded air contributing to severe spinal canal stenosis with mass effect along the cauda equina nerve roots. Moderate to severe spinal canal stenosis at the level of the disc and bilateral subarticular zone narrowing with mass effect along the traversing right greater than left L4 nerve roots. Severe bilateral neural foraminal stenosis with compression of the exiting L3 nerve roots. L4-L5: Small annular disc bulge with moderate facet arthrosis and circumferential prominent/crowding of the epidural fat. Mild to moderate effacement of the thecal sac. Mild to moderate left and mild right neural foraminal stenosis. L5-S1: Uncovered posterior disc, advanced facet arthrosis, and epidural lipomatosis. Complete effacement with mass effect along the thecal sac. Severe bilateral neural foraminal stenosis with compression of the exiting bilateral L5 nerve roots. The conus medullaris terminates at the level of T12-L1. Tendency of the cauda equina at T12-L1 related to multilevel high-grade spinal canal stenosis more inferiorly. The distal spinal cord is normal in appearance. . No epidural fluid collection, hematoma, or mass. There is moderate fatty atrophy of the paraspinal musculature. Right renal cyst for which no further imaging follow-up is required. IMPRESSION: 1. S-shaped lumbar scoliosis with diffuse severe discogenic disease with relative sparing of disc height loss at L4-L5. Congenital spinal canal stenosis with either crowding of the epidural fat or superimposed epidural lipomatosis on a background of lumbar spondylosis. Moderate to severe spinal canal stenosis at L2-L3 and L3-L4 and moderate spinal canal stenosis at L1-L2. Above the L3-L4 disc space, there is a presumed 7 mm focus of extruded air where there is severe spinal canal stenosis and mass effect along the cauda equina nerve roots. 2. At L5-S1, grade 2 anterolisthesis secondary to chronic bilateral L5 pars interarticularis defects. Epidural lipomatosis completely effaces the thecal sac at this level, and there is severe bilateral neural foraminal stenosis with compression of the exiting bilateral L5 nerve roots. 3. Severe bilateral neural foraminal stenosis at L3-L4 with compression of the exiting L3 nerve roots. CT LUMBAR SPINE WITHOUT CONTRAST 08/21/22 CLINICAL INFORMATION: Spinal stenosis, neurogenic claudication FINDINGS: Transitional lumbosacral anatomy with hypertrophy of the L5 transverse processes and pseudoarticulation with the sacral ala. Associated advanced degenerative osseous spurring, subchondral sclerosis and cystic change at the synchondrosis on the right. For the purposes of this examination, the L5-S1 disc space can be seen on image 217, series 6. S-shaped lumbar curvature with dextrocurvature, apex at L2-L3 and levocurvature, apex at L4-L5. Slight left lateral listhesis at L1-L2 and right lateral listhesis at L3-L4. 8 mm grade 1 anterolisthesis at L5-S1 secondary to chronic bilateral L5 pars interarticularis defects. Mild grade 1 retrolistheses at L1-L2, L2-L3, and L4-L5. Vertebral body heights are maintained. There is no suspicious osseous lesion. There is multilevel disc height loss; severe and eccentric to the left from L1 to L4, moderate to severe at T12-L1 and moderate at L5-S1 with multilevel vacuum disc phenomenon. Degenerative subchondral sclerosis and cystic change, most pronounced and eccentric to the left at L1-L2 and L3-L4 and eccentric to the right at L5-S1. Please not canal patency is not well assessed on this examination due to inherent limitations of CT without intrathecal contrast. Within these limitations, multilevel degenerative changes with level by level detail are as follows: T12-L1: Disc osteophyte complex with broad-based paracentral disc osteophyte protrusion and mild bilateral facet arthrosis. Mild spinal canal narrowing and right neural foraminal encroachment without left neural foraminal stenosis. L1-L2: Disc osteophyte complex with some extruded air within the left lateral recess and mild bilateral facet arthrosis with ligamentum flavum thickening. Apparent at least mild spinal canal narrowing and left greater than right subarticular zone stenosis. Moderate left and mild right neural foraminal stenosis. L2-L3: Disc osteophyte complex with moderate bilateral facet arthrosis. At least mild spinal canal stenosis and left greater than right subarticular zone narrowing. Mild to moderate left and mild right neural foraminal narrowing. L3-L4: Disc osteophyte complex with superiorly migrated extruded air within the right paracentral zone and moderate bilateral facet arthrosis with ligamentum flavum thickening. Apparent moderate spinal canal stenosis and bilateral subarticular zone narrowing. Moderate left and mild right neural foraminal stenosis with impingement upon the exiting left L3 nerve root. L4-L5: Annular disc bulge with moderate bilateral facet arthrosis and ligamentum flavum thickening. Epidural lipomatosis. Moderate to severe thecal sac effacement. Mild bilateral neural foraminal stenosis. L5-S1: Posterior disc uncovering with superiorly migrated extruded air in the right paracentral zone, disc osteophyte complex, and bilateral facet arthrosis. Epidural lipomatosis severely effaces the thecal sac. Severe bilateral neural foraminal stenosis with compression along the exiting right greater than left L5 nerve roots. There is mild fatty atrophy of the paraspinal musculature. Right lower pole renal cyst not requiring further imaging follow-up. Partially imaged fatty infiltration of the pancreas. The abdominal aorta is of normal contour and caliber. Partially imaged presumably degenerative subchondral cyst in the right supra-acetabular iliac bone. IMPRESSION: 1. Transitional lumbosacral anatomy with hypertrophy of the L5 transverse processes and pseudoarticulation with the sacral ala and degenerative changes on the right. 2. S-shaped lumbar curvature with multilevel listhesis, as described. 3. Advanced multilevel discogenic disease as above. 4. At L5-S1, there is 8 mm grade 1 anterolisthesis at L5-S1 secondary to chronic bilateral L5 pars interarticularis defects. Resultant severe bilateral neural foraminal stenosis with compression along the exiting right greater than left L5 nerve roots. 5. Epidural lipomatosis contributes to moderate to severe L4-L5 and severe L5-S1 thecal sac effacement. 6. At L3-L4, moderate spinal canal stenosis and moderate left neural foraminal stenosis with impingement upon the exiting left L3 nerve root. XR THORACOLUMBAR SPINE 04/24/23 CLINICAL INFORMATION: Change of simulation pattern. COMPARISON: Lumbar spine radiographs of 04/19/2022. FINDINGS: Lung volumes are low. Rightward curvature and advanced degenerative change in the partially imaged upper portion of the lumbar spine. Moderate multilevel degenerative changes in the thoracic spine are most notable in the [id number] thoracic spine. Spinal stimulator device overlies the posterior aspect of the lower thoracic spine with leads projecting approximately at the T7 level. IMPRESSION: 1. Spinal stimulator device overlies the posterior aspect of the lower thoracic spine with leads projecting approximately at the T7 level. 2. Moderate multilevel degenerative changes in the thoracic spine are most notable in the mid to lower thoracic spine. Assessment & Plan Assessment & Plan (1) Spinal stenosis of lumbar region with radiculopathy: Code(s): M48.061 - Spinal stenosis, lumbar region without neurogenic claudication; M54.16 - Radiculopathy, lumbar region Category: Medical (2) Osteoarthritis of hips, bilateral: Code(s): M16.0 - Bilateral primary osteoarthritis of hip Category: Medical (3) Sacroiliac joint pain: Code(s): M53.3 - Sacrococcygeal disorders, not elsewhere classified Category: Medical (4) Spondylosis of lumbar spine: Code(s): M47.816 - Spondylosis without myelopathy or radiculopathy, lumbar region Category: Medical (5) Chronic pain syndrome: Code(s): G89.4 - Chronic pain syndrome Category: Medical (6) Cervicalgia: Code(s): M54.2 - Cervicalgia Category: Medical Plan Patient will follow-up in 1 week for onesimo removal. Dressing change was done in clinic today. Plan to proceed with ITDD implant at L1-L2 with neurosurgical laminectomy with Dr. Pennings to re-attempt ITDD implant as patient did report significant pain relief without side effects and improvement in his functioning, sleep, mobility and social interactions. He reported 80% pain relief and symptom improvement for 28 hours with ITDD Fentanyl 20 mcg trial. Extensive discussion regarding the ri sks and benefits of ITDD implant and laminectomy procedures and all questions were answered to patient satisfaction. Previously discussed cervical SCS trial for chronic cervicalgia. Patient unders tands that pain pump will only control pain below the level of the waist. Patient continues self-catheterizing for chronic urinary retention status post lumbar RFA. He was previously seen by the [facility] management and [facility]. All questions and concerns have been answered and patient agreed with the plan. Follow up in 1 week for onesimo removal and sooner as needed. Medications: Refilled cyclobenzaprine 10 mg PO BEDTIME PRN 30 tabs 3RF for muscle spasm M47.816 - Spondylosis without myelopathy or radiculopathy, lumbar region, M54.16 - Radiculopathy, lumbar region, M62.838 - Other muscle spasm Discontinued hydrocodone-acetaminophen 5-325 mg Partial Fill upon patient request. Discontinued Reason: Patient Completed Course 1 tab PO BID 5 days PRN 10 tabs 0RF pain M16.0 - Bilateral primary osteoarthritis of hip, M25.551 - Pain in right hip, M25.552 - Pain in left hip, M47.816 - Spondylosis without myelopathy or radiculopathy, lumbar region, M48.061 - Spinal stenosis, lumbar region without neurogenic claudication, M54.16 - Radiculopathy, lumbar region Coding Level of Care Code Est Pt Level 4 (73129) Diagnoses Spinal stenosis of lumbar region with radiculopathy M48.061; M54.16 Osteoarthritis of hips, bilateral M16.0 Sacroiliac joint pain M53.3 Spondylosis of lumbar spine M47.816 Chronic pain syndrome G89.4 Cervicalgia M54.2
== END 2023-08-20 10:53 | disposition home or self-care (01) ==
PROVIDERS: PCP Family Medicine; Visit Provider Nurse Practitioner Family
DX: G89.4 Chronic pain syndrome (principal); M48.061 Spinal stenosis, lumbar region without neurogenic claudication; M54.16 Radiculopathy, lumbar region; M16.0 Bilateral primary osteoarthritis of hip; M53.3 Sacrococcygeal disorders, not elsewhere classified; M47.816 Spondylosis without myelopathy or radiculopathy, lumbar region; M54.2 Cervicalgia
CPT/HCPCS: 99024

== ENCOUNTER → 2023-08-20 10:11 | Outpatient (BNVA) | payer BC, MEDICAID, SELFPAY | PROVIDERS: PCP Family Medicine; Visit Provider Nurse Practitioner Family ==

== ENCOUNTER 2023-08-27 13:41 | Outpatient (AMB) | payer MEDICARE, MEDICAID, SELFPAY ==
--- NOTE | 2023-08-27 14:22 | MHC.OFFVIS ---
Vital Signs 08/27/23 14:33 Height 5 ft 7 in Weight 183 lb 8 oz BMI 28.7 BP 134/72 Blood Pressure Location Lt brachial Position Sitting Respiration 14 Pulse 79 Pulse Source Pulse Oximeter Pulse Oximetry (%) 96 Oxygen Delivery Method Room Air Intake Visit Reasons: S/p ITDD Pain Pump IMPLANT 08/10/23 (2nd Visit) Intake Note: Patient comes in for post-op week 2. Reports pain 6/10. Allergies oxycodone Adverse Reaction (Severe, Verified 08/27/23 14:33) vertigo sulfamethoxazole [From Bactrim] Adverse Reaction (Severe, Verified 08/27/23 14:33) AFIB trimethoprim [From Bactrim] Adverse Reaction (Severe, Verified 08/27/23 14:33) AFIB HPI Comments Details: Patient presents today status post attempt of intrathecal pain pump SynchroMed III, [employer] implant on 08/10/23. Due to difficulty navigating intrathecal catheter into intrathecal space, procedure was aborted . I will schedule patient for laminotomy and direct vision intrathecal catheter insertion to be performed by Dr. Feldman and after this will complete the procedure of pain pump implantation. Tunica were removed today, the healing is going well in his lumbar spine. Bacitracin ointment was applied. Past Procedures: 08/10/23: Attempt of ITDD implant-0% pain relief, procedure aborted 05/22/23: ITDD trial with Fentanyl -80% pain relief for 28 hours 04/20/23: Lumbar Nevro SCS trial-30-40% pain relief PRIOR Carlito is back in my office after a trial of intrathecal pain pump, he reports 28 hours of 80% pain improvement after injection of 20 micro g of fentanyl diluted in 3 cc of normal saline into the intrathecal space. There is very minimal CSF output found on the trial. I had to inject intrathecally Isovue-M contrast to demonstrate myelogram before injecting the med. He reports 28 hours of profound pain relief. He reports better mobility better activities of daily living, he reports better social interactions. After 28 hours pain gradually went back to pre- injection level. Patient wants to go for implantation of intrathecal pain pump. I explained to the patient that due to paucity of his CSF I may try the procedure however it is possible that if I will not find any CSF output from the catheter I would have to abandoned the procedure. Patient understood Past Procedures: 04/20/23: Lumbar Nevro SCS trial-30-40% pain relief PRIOR: Patient presents today for follow up to discuss spinal cord stimulation trial and implant for chronic back pain. He was re-evaluated by [facility] after lumbar spine CT scan and discussed thoracolumbar junction fusion which both surgeons and patient does not want to proceed as this would not provide him significant pain relief. He was referred back to us by Neurosurgery office for potential SCS trial discussion. This was discussed previously and again today in greater details. We also discussed ITDD pain pump trial and implant as back up option. Patient is not taking any opioids now and might pursue this option with his PCP to assess his opioid tolerance and pain relief for future ITDD trial and implant if SCS does not provide him significant pain relief. The trialed and failed therapy has been reviewed with the patient and his . The risks, consequences, alternatives, and benefits of various treatment options were discussed with the patient in great detail, including conservative management, injections and procedures. Referral placed for psychology clearance in anticipation of SCS trial. PRIOR: Patient presents today to assess response to Bilateral intra-articular hip steroid injections on 07/11/[address] Lim. Patient reports 70% for left hip and 90% for right hip pain relief for following the procedure with improvement in his weight bearing tolerance, functioning and partially improved sleep. He continues to endorse low back pain due to significant degenerative changes and scoliosis. Patient was recently evaluated by our colleagues at [facility] on 08/03/22 after completing lumbar spine MRI on 07/12/22 with the full report noted below. Patient was discussed for fusion surgery after evaluating anatomical variance in his lumbar spine with a non-contrast lumbar CT. This has not been scheduled yet. Denies any recent cough, cold, infection, fever or other significant changes in medical history since last office visit. Patient denies any bladder or bowel incontinence or saddle anesthesia. Patient reports he is planning to go on vacation in September and is concerned for increase in pain for prolonged sitting for over [address] flight[address] We will prescribe short script of Vicodin as patient has tolerated this well in the past. Aware of allergy to oxycodone. PRIOR: Carlito is a pleasant 66 year old male who presents to the office with 40 year history of widespread pain. He is accompanied by his Arlin today. He reports severe persistent and progressively worsening lower back pain with radiation into BLE with associated numbness and tingling. He also notes severe axial pain that radiates into bilateral hips L>R. He denies any saddle anesthesia, weakness or bowel dysfunction. He does self cath which he attributes to lumbar RFA, as the symptoms started 2 weeks post procedure. He states his PCP recently ordered a lumbar spine MRI which will be performed on the at [place]. He also reports a pelvic fracture in 2007. He has been evaluated by [facility] pain management and [facility]. He has had multiple interventions performed including HAILY, ablations as well as chiropractic manipulation, acupuncture, TENS unit and physical therapy with varying pain relief but no significant outcomes. He was also evaluated by [facility] and deemed not a surgical candidate. He has also trialed multiple oral and topical medications with minimal relief including tylenol, flexeril, gabapentin, as well as lidocaine patches and tiger balm with little to no relief. He is currently managed on cymbalta, Carbamazepine and topamax with less than adequate alleviation in symptoms. He reports his pain onset was gradual, constant and rates the pain a 5-10/10. His pain is aggravated by prolonged positioning as well as standing. He does note have a shuffling and slow gait. In terms of tissue damage he describes his pain as aching, shooting, numb as well as tiring and burning. He reports the pain is negatively impacting his general activity, mood, recreational activities, sleep and walking. His past medical history of consistent for Lynette's thyroiditis, COVID-19, DVT, Bipolar 1, Hyperlipidemia, hypothyroidism. [facility] Medical History Osteoarthritis of hips, bilateral Hypothyroidism Hyperlipidemia Bipolar 1 disorder DVT (deep venous thrombosis) COVID-19 Lynette's thyroiditis Sacroiliac joint pain Bilateral lumbar radiculopathy Spondylosis of lumbar spine Bilateral hip pain Spondylolisthesis Surgical History Hx of umbilical hernia repair Hx of colonoscopy Social History Patient Tobacco Use Status: Never used Tobacco Review of Systems Const All systems reviewed & are unremarkable except as noted in HPI and below Physical Exam Vital Signs: Last Vital Signs Pulse 79 07/15/24 14:33 Resp 14 08/27/23 14:33 BP 134/72 08/27/23 14:33 Pulse Ox 96 08/27/23 14:33 Oxygen Delivery Method Room Air 08/27/23 14:33 BMI result Body Mass Index 28.7 General: Appears afebrile. Alert and oriented. Mood and affect appropriate. Follows and participates in conversation appropriately. Respiratory effort is unlabored. Able to transition from sit to stand unassisted. Ambulates with bilaterally normal heel strike and toe off. General: Yes no CVA tenderness Back/Spine/Pelvis Other: Midline incisional wound-No pathological discharge, no swelling and no erythema.?Onesimo intact. Dressing was changed today in the clinic. Back: no CVA tenderness Cervical Spine: cervical muscular tenderness, pain with cervical ROM and No Cervical spine tenderness Thoracic/Lumbar Spine: thoracic and lumbar spine normal to inspection, Lasegue's sign negative, straight leg raise negative bilaterally, pain with thoraco-lumbar ROM, thoraco-lumbar ROM limited, No thoracic spinal tenderness and lumbar spinal tenderness at L4 and at L5 Pelvis: no buttock tenderness Assessment & Plan Assessment & Plan (1) Spinal stenosis of lumbar region with radiculopathy: Code(s): M48.061 - Spinal stenosis, lumbar region without neurogenic claudication; M54.16 - Radiculopathy, lumbar region Category: Medical (2) Osteoarthritis of hips, bilateral: Code(s): M16.0 - Bilateral primary osteoarthritis of hip Category: Medical (3) Sacroiliac joint pain: Code(s): M53.3 - Sacrococcygeal disorders, not elsewhere classified Category: Medical (4) Spondylosis of lumbar spine: Code(s): M47.816 - Spondylosis without myelopathy or radiculopathy, lumbar region Category: Medical (5) Chronic pain syndrome: Code(s): G89.4 - Chronic pain syndrome Category: Medical (6) Cervicalgia: Code(s): M54.2 - Cervicalgia Category: Medical Plan Tunica are removed today. Plan to proceed with ITDD implant at L1-L2 with neurosurgical laminectomy with Dr. Feldman to re-attempt ITDD implant as patient did report significant pain relief without side effects and improvement in his functioning, sleep, mobility and social interactions. He reported 80% pain relief and symptom improvement for 28 hours with ITDD Fentanyl 20 mcg trial. Extensive discussion regarding the risks and benefits of ITDD implant and laminectomy procedures and all questions were answered to patient satisfaction. Previously discussed cervical SCS trial for chronic cervicalgia. Patient understands that pain pump will only control pain below the level of the waist. Patient continues self-catheterizing for chronic urinary retention status post lumbar RFA. He was previously seen by the [facility] and [facility]. All questions and concerns have been answered and patient agreed with the plan. Follow up in 1 week for onesimo removal and sooner as needed. Patient Instructions: I here by testify that I spent 32 minutes in conversation with this patient as well as planning his care and organizing this note. Coding Level of Care Code Est Pt Level 4 (13647) Diagnoses Spinal stenosis of lumbar region with radiculopathy M48.061; M54.16 Osteoarthritis of hips, bilateral M16.0 Sacroiliac joint pain M53.3 Spondylosis of lumbar spine M47.816 Chronic pain syndrome G89.4 Cervicalgia M54.2
[2023-08-27 14:33] VITALS: BP 134/72; PULSE 79; RESP 14; O2SAT 96; BMI 28.7
== END 2023-08-27 15:00 | disposition home or self-care (01) ==
PROVIDERS: PCP Family Medicine; Visit Provider Anesthesiology
DX: M53.3 Sacrococcygeal disorders, not elsewhere classified (principal); M47.816 Spondylosis without myelopathy or radiculopathy, lumbar region; G89.4 Chronic pain syndrome; M54.2 Cervicalgia
CPT/HCPCS: 99214

== ENCOUNTER → 2023-08-27 13:41 | Outpatient (BNVA) | payer MEDICARE, MEDICAID, SELFPAY | PROVIDERS: PCP Family Medicine; Visit Provider Anesthesiology | DX: M48.061 Spinal stenosis, lumbar region without neurogenic claudication (principal); M54.16 Radiculopathy, lumbar region; M16.0 Bilateral primary osteoarthritis of hip; M53.3 Sacrococcygeal disorders, not elsewhere classified; M47.816 Spondylosis without myelopathy or radiculopathy, lumbar region; M54.2 Cervicalgia; G89.4 Chronic pain syndrome | CPT/HCPCS: 99212 ==

== ENCOUNTER 2023-10-12 | Outpatient (REF) | payer MEDICARE, MEDICAID, SELFPAY ==
--- NOTE | 2023-10-12 | ECG_ITS ---
Test Reason : PREOP Blood Pressure : / mmHG Vent. Rate : 062 BPM Atrial Rate : 062 BPM P-R Int : 186 ms QRS Dur : 090 ms QT Int : 414 ms P-R-T Axes : 050 044 053 degrees QTc Int : 420 ms Normal sinus rhythm Normal ECG No previous ECGs available Referred By: Amber Weaver Electronically Signed By:RON SANDOVAL
[2023-10-12 12:38] VITALS: BP 114/76; PULSE 65; RESP 16; O2SAT 97; BMI 28.5
--- NOTE | 2023-10-12 12:51 | P.CONAN_ITS ---
HPI - Anesthesia Eval Consult details Narrative: Awaiting Dr Lim reschedule 68yo M for ?L1-2 Laminotomy and Intrathecal Drug Delivery Implant, 10/26/23 s/p attempted Intrathecal Drug Delivery Implant 07/2023 with GA-LMA 5 No recent illness No CP/SOB with minimal activity Afib: 1 x r/t drug allergy ROSS: No cpap use d/t intolerance/pain GERD: ppi mostly covers PMFSH Active Problems Active Problems: All Active Problems Cervicalgia (Acute) Chronic pain syndrome (Acute) Spinal cord stimulator dysfunction (Acute) Spinal stenosis of lumbar region with radiculopathy (Acute) Epidural lipomatosis (Acute) Muscle spasm (Acute) Osteoarthritis of hips, bilateral (Acute) Sacroiliac joint pain (Acute) Bilateral lumbar radiculopathy (Acute) Spondylosis of lumbar spine (Acute) Bilateral hip pain (Acute) Spondylolisthesis (Acute) Past Medical History Medical History (Updated 10/12/23 @ 12:21 by Frances Ngo RN) Arthritis Hiatal hernia Anxiety Depression Elevated cholesterol Atrial fibrillation Umbilical hernia Habitual snoring Sleep apnea Self-catheterizes urinary bladder Disorder of sacroiliac joint Lumbar spinal stenosis Thyroid disease GERD (gastroesophageal reflux disease) Cognitive disorder Back pain Bladder atony Osteoarthritis of hips, bilateral Hypothyroidism Hyperlipidemia Bipolar 1 disorder DVT (deep venous thrombosis) COVID-19 Lynette's thyroiditis Sacroiliac joint pain Bilateral lumbar radiculopathy Spondylosis of lumbar spine Bilateral hip pain Spondylolisthesis Family History Family history of problems with anesthesia: No Surgical History Surgical History (Updated 10/12/23 @ 12:21 by Frances Ngo RN) History of hand surgery History of esophagogastroduodenoscopy (EGD) Hx of umbilical hernia repair Hx of colonoscopy History of Problems with Anesthesia: No Social History Social History Are you a primary career services officer to a significant other at home: No Do you presently have visiting nurse or other home services: No Patient Tobacco Use Status: Never used Tobacco Use of substances other than those prescribed or required for medical reasons: No Have you been hit, kicked, punched, or otherwise hurt by someone within the past year? If so, by whom?: No Are you DNR?: No Advance Directives: No Advance Directives Information Provided: No Advance Directives on File: No Recently lost weight without trying: No Eating poorly because of decreased appetite: No Nutrition Risks: No Nutritional Risk Poor oral hygiene: Yes (missing teeth, removable bridge) Meds Allergies Allergy/AdvReac Type Severity Reaction Status Date / Time oxycodone AdvReac Severe vertigo Verified 08/27/23 14:33 sulfamethoxazole AdvReac Severe AFIB Verified 08/27/23 14:33 [From Bactrim] trimethoprim [From Bactrim] AdvReac Severe AFIB Verified 08/27/23 14:33 Home Medications ?Medication ?Instructions ?Recorded ?Confirmed ?Last Taken ?Type carbamazepine 200 mg tablet 400 mg PO BEDTIME 05/27/21 10/12/23 Unknown History (Tegretol) duloxetine 30 mg capsule,delayed 30 mg PO BEDTIME 05/27/21 10/12/23 Unknown History release duloxetine 60 mg capsule,delayed 60 mg PO BEDTIME 05/27/21 10/12/23 Unknown History release levothyroxine 50 mcg tablet 50 mcg PO DAILY 05/27/21 10/12/23 08/10/23 History metoprolol tartrate 25 mg tablet 25 mg PO BID 05/27/21 10/12/23 04/20/23 History pantoprazole 40 mg tablet,delayed 40 mg PO BID 05/27/21 10/12/23 Unknown History release topiramate 25 mg tablet 25 mg PO BID 05/27/21 10/12/23 Unknown History acetaminophen 500 mg capsule 1,000 mg PO Q6H PRN Pain 10/12/23 10/12/23 Unknown History atorvastatin 20 mg tablet 20 mg PO BEDTIME 10/12/23 10/12/23 Unknown History cephalexin 500 mg capsule 1,000 mg PO Q8H PRN Fever Or Pain 10/12/23 10/12/23 Unknown History cranberry extract 500 mg capsule 1,500 mg PO DAILY 10/12/23 10/12/23 Unknown History (Cranberry Concentrate) d-mannose 500 mg capsule mg PO 10/12/23 10/12/23 Unknown History lidocaine 4 % topical patch 1 patch topical BEDTIME PRN pain 10/12/23 10/12/23 Unknown History Exam Height,Weight and Vital Signs: Height 5 ft 7 in Weight 82.554 kg Last Vital Signs Pulse 65 08/30/24 12:38 Resp 16 10/12/23 12:38 BP 114/76 10/12/23 12:38 Pulse Ox 97 10/12/23 12:38 O2 Del Method Room Air 10/12/23 12:38 Airway Mallampati Class: I TM Dist: >3cm Neck ROM: Full (mild OA) Partial: Upper and Lower Loose/Missing/Broken Teeth: Yes Heart: RRR Lungs: CTAB Assessment and Plan Assessment Anesthesia Assessment: Anesthesia Plan Discussed and PAT Visit Final Anesthetic Review Family History of Problems with Anesthesia: No History of Problems with Anesthesia: No
[2023-10-12 14:04] LABS: Hematocrit 42.3 % (42.0-52.0); Hemoglobin 14.6 g/dl (14.0-18.0); Mean Corpuscular HGB Conc 34.5 g/dl (31.0-36.0); Mean Corpuscular Volume 95.7 fL (80.0-98.0); Mean Platelet Volume 9.6 fL (9.4-12.4); Platelet Count 176 X10*3/uL (160-400); Red Blood Count 4.42 X10*6/uL (4.60-5.80); White Blood Count 8.4 X10*3/uL (4.8-10.8)
== END 2023-10-12 00:01 | disposition home or self-care (01) ==
LOC: HO.PAT
PROVIDERS: Nurse Practitioner; PCP Family Medicine; Visit Provider Neurological Surgery
DX: M48.061 Spinal stenosis, lumbar region without neurogenic claudication (principal); Z01.818 Encounter for other preprocedural examination
CPT/HCPCS: 36415; 85027; 93005

== ENCOUNTER 2024-01-18 06:00 | Day surgery (SDC) | payer MEDICARE, OTHER, SELFPAY ==
[2024-01-03 10:22] VITALS: BMI 28.2
--- NOTE | 2024-01-17 10:48 | P.CONAN_ITS ---
Documented by User: Amber Weaver NP 01/17/24 10:50 HPI - Anesthesia Eval Consult details Narrative: 68yo M for ?L1-2 Laminotomy and Intrathecal Drug Delivery Implant Seen in PAT 09/2023 s/p attempted Intrathecal Drug Delivery Implant 07/2023 with GA-LMA 5 No recent illness No CP/SOB with minimal activity Afib: 1 x r/t drug allergy ROSS: No cpap use d/t intolerance/pain GERD: ppi mostly covers PMFSH Active Problems Active Problems: All Active Problems Cervicalgia (Acute) Chronic pain syndrome (Acute) Spinal cord stimulator dysfunction (Acute) Spinal stenosis of lumbar region with radiculopathy (Acute) Epidural lipomatosis (Acute) Muscle spasm (Acute) Osteoarthritis of hips, bilateral (Acute) Sacroiliac joint pain (Acute) Bilateral lumbar radiculopathy (Acute) Spondylosis of lumbar spine (Acute) Bilateral hip pain (Acute) Spondylolisthesis (Acute) Past Medical History Medical History LAU (dyspnea on exertion) ROSS (obstructive sleep apnea) Arthritis Hiatal hernia Anxiety Depression Elevated cholesterol Atrial fibrillation Umbilical hernia Habitual snoring Sleep apnea Self-catheterizes urinary bladder Disorder of sacroiliac joint Lumbar spinal stenosis Thyroid disease GERD (gastroesophageal reflux disease) Cognitive disorder Back pain Bladder atony Osteoarthritis of hips, bilateral Hypothyroidism Hyperlipidemia Bipolar 1 disorder DVT (deep venous thrombosis) COVID-19 Lynette's thyroiditis Sacroiliac joint pain Bilateral lumbar radiculopathy Spondylosis of lumbar spine Bilateral hip pain Spondylolisthesis Family History Family history of problems with anesthesia: No Surgical History Surgical History History of hand surgery History of esophagogastroduodenoscopy (EGD) (~10/2023) Hx of umbilical hernia repair Hx of colonoscopy History of Problems with Anesthesia: No Social History Social History Household Members: Spouse Housing: House Are you a primary overnight caregiver to a significant other at home: No Do you presently have visiting nurse or other home services: No Patient Tobacco Use Status: Never used Tobacco e-Cigarette/Vaping Use: Never Used Use of substances other than those prescribed or required for medical reasons: No Have you been hit, kicked, punched, or otherwise hurt by someone within the past year? If so, by whom?: No Are you DNR?: No Advance Directives: No Advance Directives Information Provided: Yes Advance Directives on File: No Nutrition Risks: No Nutritional Risk Meds Allergies Allergy/AdvReac Type Severity Reaction Status Date / Time oxycodone AdvReac Severe vertigo Verified 08/27/23 14:33 sulfamethoxazole AdvReac Severe AFIB Verified 08/27/23 14:33 [From Bactrim] trimethoprim [From Bactrim] AdvReac Severe AFIB Verified 08/27/23 14:33 Home Medications ?Medication ?Instructions ?Recorded ?Confirmed ?Last Taken ?Type carbamazepine 200 mg tablet 400 mg PO BEDTIME 05/27/21 01/03/24 Unknown History (Tegretol) duloxetine 30 mg capsule,delayed 30 mg PO BEDTIME 05/27/21 01/03/24 Unknown History release duloxetine 60 mg capsule,delayed 60 mg PO BEDTIME 05/27/21 01/03/24 Unknown History release levothyroxine 50 mcg tablet 50 mcg PO DAILY 05/27/21 01/03/24 01/18/24 History metoprolol tartrate 25 mg tablet 25 mg PO BID 05/27/21 01/03/24 01/18/24 History pantoprazole 40 mg tablet,delayed 40 mg PO BID 05/27/21 01/03/24 01/18/24 History release topiramate 25 mg tablet 25 mg PO BID 05/27/21 01/03/24 01/18/24 History acetaminophen 500 mg capsule 1,000 mg PO Q6H PRN Pain 10/12/23 01/03/24 Unknown History atorvastatin 20 mg tablet 20 mg PO BEDTIME 10/12/23 01/03/24 Unknown History cranberry extract 500 mg capsule 1,500 mg PO DAILY 10/12/23 01/03/24 Unknown History (Cranberry Concentrate) d-mannose 500 mg capsule mg PO 10/12/23 10/12/23 Unknown History lidocaine 4 % topical patch 1 patch topical BEDTIME PRN pain 10/12/23 01/03/24 Unknown History omeprazole 20 mg capsule,delayed 20 mg PO DAILY PRN Gastric Reflux 01/03/24 01/03/24 Unknown History release Exam Height,Weight and Vital Signs: Height 5 ft 7 in Weight 81.647 kg Narrative Narrative: EKG 09/2023 Vent. Rate : 062 BPM Atrial Rate : 062 BPM P-R Int : 186 ms QRS Dur : 090 ms QT Int : 414 ms P-R-T Axes : 050 044 053 degrees QTc Int : 420 ms Normal sinus rhythm Normal ECG No previous ECGs available Assessment and Plan Final Anesthetic Review Family History of Problems with Anesthesia: No History of Problems with Anesthesia: No Documented by User: Susan Frank MD 01/18/24 07:37 [facility] Active Problems Active Problems: qAll Active Problems Cervicalgia (Acute) Chronic pain syndrome (Acute) Spinal cord stimulator dysfunction (Acute) Spinal stenosis of lumbar region with radiculopathy (Acute) Epidural lipomatosis (Acute) Muscle spasm (Acute) Osteoarthritis of hips, bilateral (Acute) Sacroiliac joint pain (Acute) Bilateral lumbar radiculopathy (Acute) Spondylosis of lumbar spine (Acute) Bilateral hip pain (Acute) Spondylolisthesis (Acute) Past Medical History Medical History LAU (dyspnea on exertion) ROSS (obstructive sleep apnea) Arthritis Hiatal hernia Anxiety Depression Elevated cholesterol Atrial fibrillation Umbilical hernia Habitual snoring Sleep apnea Self-catheterizes urinary bladder Disorder of sacroiliac joint Lumbar spinal stenosis Thyroid disease GERD (gastroesophageal reflux disease) Cognitive disorder Back pain Bladder atony Osteoarthritis of hips, bilateral Hypothyroidism Hyperlipidemia Bipolar 1 disorder DVT (deep venous thrombosis) COVID-19 Lynette's thyroiditis Sacroiliac joint pain Bilateral lumbar radiculopathy Spondylosis of lumbar spine Bilateral hip pain Spondylolisthesis Surgical History Surgical History History of hand surgery History of esophagogastroduodenoscopy (EGD) (~10/2023) Hx of umbilical hernia repair Hx of colonoscopy Social History Social History Household Members: Spouse Housing: House Are you a primary overnight caregiver to a significant other at home: No Do you presently have visiting nurse or other home services: No Patient Tobacco Use Status: Never used Tobacco e-Cigarette/Vaping Use: Never Used Use of substances other than those prescribed or required for medical reasons: No Have you been hit, kicked, punched, or otherwise hurt by someone within the past year? If so, by whom?: No Are you DNR?: No Advance Directives: No Advance Directives Information Provided: Yes Advance Directives on File: No Nutrition Risks: No Nutritional Risk Meds Allergies Allergy/AdvReac Type Severity Reaction Status Date / Time oxycodone AdvReac Severe vertigo Verified 08/27/23 14:33 sulfamethoxazole AdvReac Severe AFIB Verified 08/27/23 14:33 [From Bactrim] trimethoprim [From Bactrim] AdvReac Severe AFIB Verified 08/27/23 14:33 Home Medications ?Medication ?Instructions ?Recorded ?Confirmed ?Last Taken ?Type carbamazepine 200 mg tablet 400 mg PO BEDTIME 05/27/21 01/03/24 Unknown History (Tegretol) duloxetine 30 mg capsule,delayed 30 mg PO BEDTIME 05/27/21 01/03/24 Unknown History release duloxetine 60 mg capsule,delayed 60 mg PO BEDTIME 05/27/21 01/03/24 Unknown History release levothyroxine 50 mcg tablet 50 mcg PO DAILY 05/27/21 01/03/24 01/18/24 History metoprolol tartrate 25 mg tablet 25 mg PO BID 05/27/21 01/03/24 01/18/24 History pantoprazole 40 mg tablet,delayed 40 mg PO BID 05/27/21 01/03/24 01/18/24 History release topiramate 25 mg tablet 25 mg PO BID 05/27/21 01/03/24 01/18/24 History acetaminophen 500 mg capsule 1,000 mg PO Q6H PRN Pain 10/12/23 01/03/24 Unknown History atorvastatin 20 mg tablet 20 mg PO BEDTIME 10/12/23 01/03/24 Unknown History cranberry extract 500 mg capsule 1,500 mg PO DAILY 10/12/23 01/03/24 Unknown History (Cranberry Concentrate) d-mannose 500 mg capsule mg PO 10/12/23 10/12/23 Unknown History lidocaine 4 % topical patch 1 patch topical BEDTIME PRN pain 10/12/23 01/03/24 Unknown History omeprazole 20 mg capsule,delayed 20 mg PO DAILY PRN Gastric Reflux 01/03/24 01/03/24 Unknown History release Exam Airway Mallampati Class: III TM Dist: >3cm Neck ROM: Full Loose/Missing/Broken Teeth: Yes and Upper Heart: RRR Lungs: CTA Assessment and Plan Assessment Anesthesia Assessment: Anesthesia Plan Discussed and Chart Reviewed Final Anesthetic Review NPO: Yes ASA Class: III Final Preanesthetic Review: Meds/Allgs Chart Reviewed, Consent Obtained/Reviewed and Anes Risks/Benef Reviewed Patient Risk: Intermediate Procedure Risk: Intermediate Anesthetic Plan Anesthetic Plan: GA Disposition: Standard PACU
[2024-01-18] VITALS (10 sets, daily range): BP systolic 114–149; BP diastolic 67–87; PULSE 69–90; RESP 16–18; TEMP 36.2–36.6; O2SAT 95–100
[2024-01-18] MEDS: Lactated Ringers 1,000 ML 100 ML IVCONT (06:47)
--- NOTE | 2024-01-18 07:08 | P.HPSUR_ITS ---
Pre-Procedural Eval Section A - 24 Hr Update-Section A only Date of Service: 01/18/24 The patient is an INPATIENT: No Changes since office visit: Yes Patient answered all questions The patient has been examined within 24 hours of the surgical procedure. The History & Physical has been completed within 30 days and I have reviewed it.: No Section B - Complete if H&P > 30 days Chief Complaint: Spinal stenosis, lumbar region without neurogenic Details of Present Illness: as above Present Medications: None Medical History: No relevant PMH History of Previous Operations: Relevant previous surgery/procedure and date(s) (RFA lumbar) Allergies: Allergies Allergy/AdvReac Type Severity Reaction Status Date / Time oxycodone AdvReac Severe vertigo Verified 08/27/23 14:33 sulfamethoxazole AdvReac Severe AFIB Verified 08/27/23 14:33 [From Bactrim] trimethoprim [From Bactrim] AdvReac Severe AFIB Verified 08/27/23 14:33 Review of Systems Sugical H&P ROS: Negative: Constitution, Cardiovascular, Respiratory, Neurological, Psychiatric, Hem-Onc, Allergic/Immunologic, Gastrointestinal, Integumentary, Endocrine and Eyes/Ears/Nose/Throat and Yes, Specify: Genitourinary (urinary incontinence and retention due to yatrogenic cauda equina syndrome.) and Musculoskeletal (as above ) Exam Surgical H&P Exam: Normal: HEENT, Normal: Heart, Normal: Lungs, Normal: Ext remities, Normal: Abdomen, Normal: Skin and Normal: Neurological Plan Diagnosis/Plan: Unchanged I have reviewed the history and physical and performed a pertinent physical examination on my patient. No changes have occurred unless specified. Time Spent With Patient Time: Total time managing care of this patient today ____ minutes.
--- NOTE | 2024-01-18 07:48 | PC.NURSE ---
awaiting the rep to come to hospital. they are late. patient stated right side originally for delivery implant then changed his mind. md franco removed old marking and added a new marking to his left. by the bedside. aware of plan of care..
--- NOTE | 2024-01-18 08:22 | PC.NURSE ---
Question regarding legal surgical consent. Dr Lim performing Intrathecal Drug Delivery Implant, Dr. Feldman assisting during procedure. Lucie Evans, Director [employer]/Risk and Estiven Linda, mechanical design drafter notified and at bedside. Patient aware of procedure and Dr. Feldman assisting Dr. Lim. okay to proceed with procedure and surgical consent.
[2024-01-18 08:57] LABS: MRSA Nasal PCR NEGATIVE (Negative); SA Nasal PCR POSITIVE (Negative)
--- NOTE | 2024-01-18 09:46 | P.OP_ITS ---
Operative Note Operative Note Date of Service: 01/18/24 Narrative: Preoperative Diagnosis: Chronic pain syndrome Operation: L1-L2 Laminotomy and durotomy to insert intrathecal catheter for morphine pump Consent Informed Consent was obtained for this operation. I have explained the nature, purpose and benefits of the operation. I have discussed the risks and benefit of the operation including possible complications or adverse events with patient/family. Alternative(s) were discussed with the patient with their relative benefits and risks as well as the consequences of not accepting the operation were included in obtaining consent. Surgeon: GRACE SLADE MD, PHD Co Surgeon: Napoleon Lim MD Description of Procedure This 68-year-old male is suffering from chronic pain syndrome. Dr. Lim, pain specialist tried to percutaneously intrathecal catheter but was unsucce ssful. Therefore he requested that I would do a laminotomy and to insert the catheter under direct vision. The procedure complications were explained. The patient was consented. The patient was brought to the operating room and endotracheally intubated. The patient was turned in prone position on the Vivek frame. Prep and drape was done followed by timeout. The L1-L2 interspace was localized with fluoroscopy. A mid lumbar incision was made followed by release of the paravertebral muscle bilaterally to expose the L1-L2 lamina and facet joints. An intraoperative x-ray was obtained to confirm the correct level. A Leksell was used to remove the interspinous ligament and part of the L1 on L2 spinous processes. The high-speed drill was used to do a L1-L2 laminotomy until flavum ligament was reached. A #2 Kerrison was used to expand the laminotomy. The flavum ligament was opened and resected to expose the underlying dura. A 15. blade was used to perform a durotomy after which the catheter was inserted intradurally and advanced to T8 under fluoroscopy. The durotomy was covered with a piece of DuraGen. The catheter was secured to the fascia. The fascia was closed with [address] Mckinley took over to complete the procedure which will be dictated in a separate report. Anesthesia: General Estimated Blood Loss (ml): 30 mL Complications: None Duration of Surgery: Under 60 Minutes Postoperative Plan: Discharge to home
--- NOTE | 2024-01-18 11:17 | PM.OP ---
Brief Operative Note Date of Service: 01/18/24 Pre-op diagnosis: Spinal stenosis, chronic pain syndrome. Post-op diagnosis: same Procedure: Implantation of intrathecal drug delivery system pain pump chronic SynchroMed 3. Implants: SynchroMed 3 pain pump and intrathecal catheter Ascenda Surgeon: Napoleon Lim MD Anesthesia: GETA Was an Reducing System Operator used for this Procedure?: No Estimated blood loss (mL): 85 Pathology: none sent Condition: stable Disposition: PACU
--- NOTE | 2024-01-18 11:19 | W.PM.OPN ---
Operative Note Operative Note Date of Service: 01/18/24 Narrative: Implantation of intrathecal drug delivery system pain pump - [employer]. After obtaining informed consent and explaining to the patient risks, benefits and alternatives to treat her pain, the patient was brought up to the operating room where he was supine on the stretcher.? [place] [employer] monitors were applied and he was induced with general anesthesia endotracheal intubation. The patient received antibiotic cefazolin 2 g 20 minutes before procedure Time-out was performed delineating correct site and side of the procedure, name and date of of the patient, risk of fire, need for antibiotic prophylaxis risk of DVT and need for DVT prophylaxis. ? After that the patient?s entire back? and upper buttocks were prepped with Chloraprep and draped with full body drape including ioban film. At this moment the procedure was started by Dr. Feldman, see the description of the procedure in his operative note. ?After completion of the insertion of the intrathecal catheter into the intrathecal space and closure of the prevertebral fascia the thorough irrigation of the wound was performed . Attention was attracted to moderate bleeding coming from under the prevertebral fascia previously closed. Surgicel was obtained and inserted under the prevertebral fascia suture line and gentle pressure was applied. The bleeding stopped. Dr. Feldman was contacted and informed about hemostatic maneuver performed. Dr. Velasco on the phone reported that he does not mind if the Surgicel will be left in the wound providing hemostasis as long as the bleeding is well controlled. After that attention -was concentrated on the patient's left upper buttock. Iliac crest was palpated under the skin, 3 cm below the projection of the? iliac crest? to the skin of the local anesthetic lidocaine 2% plus Ropivacaine 0.5% 1-1 was injected in the linear horizontal fashion.? After that 10 cm incision was performed in patient's? left upper buttock alongside the injected line. ? Thorough hemostasis was obtained using cautery device.? After that the wound was widened and made 2 cm deep .? The wound was extended medially and laterally as well as caudally and cranially to form the space to accommodate the body of the pump.? Thorough hemostasis was performed.? The wound was irrigated with vancomycin containing normal saline and then tunneling device was used to connect both wounds and dislodged the intrathecal catheter into the side wound.? The catheter was trimmed appropriately after that and sutureless connection device was mounted on the catheter.? After that sutureless connection device was connected to the pump.? Aspiration of the side port of the pump revealed clear flow of CSF.? Two anchoring 1-0 Tycron sutures were applied in most inferior lateral and most inferior medial corners of the wound.? After that the sutures were connected to the brackets on the body of the pump, intrathecal catheter was gathered behind the body of the pump and pump was dislodged into the wound.? After that the anchoring sutures were tied.? After that noncoring needle was used again to reach side port of the pump in clear flow of CSF 0.5 mL was demonstrated in the syringe connected to the noncoring needle. ? Thorough irrigation was performed again in both wounds.? Thorough hemostasis was verified for both wounds.? 0 polisorb sutures were used to close both wounds, 2-0 suture of the same nature were used to approximate the skin.? Onesimo were applied to the skin line and Bacitracin ointment was applied to the staple lines.? Sterile dressing with sterile 4x4s was performed, abdominal binder was applied.? Upon completion of the procedure patient was awaken and taken outside of the operating room to recovery room where he recovered uneventfully.?
[2024-01-18] MEDS: HYDROmorphone HCl 0.5 MG/0.5 ML SYRINGE 0.25 MG IVPUSH ×2 (11:40→11:45)
== END 2024-01-18 13:04 | disposition home or self-care (01) ==
PROVIDERS: Anesthesiology; Registered Nurse Emergency; PCP Family Medicine; Visit Provider Neurological Surgery
PROC: (CPT 62351; principal; 2024-01-18 07:30)
PROC: (CPT 62362; 2024-01-18 07:30)
DX: M48.061 Spinal stenosis, lumbar region without neurogenic claudication (principal); G89.4 Chronic pain syndrome; G47.33 Obstructive sleep apnea (adult) (pediatric)
CPT/HCPCS: 62351; 62362; 87640; 87641; C1755; C1772; J0665; J0690; J1100; J1171; J1885; J2003; J2371; J2405; J2704; J3010; J3370

== ENCOUNTER → 2024-01-18 06:00 | Outpatient (BNV) | payer MEDICARE, MEDICAID, SELFPAY | PROVIDERS: PCP Family Medicine; Visit Provider Anesthesiology | DX: G89.4 Chronic pain syndrome (principal); M48.061 Spinal stenosis, lumbar region without neurogenic claudication | CPT/HCPCS: 62362 ==

== ENCOUNTER → 2024-01-18 06:00 | Outpatient (BNV) | payer MEDICARE, MEDICAID, SELFPAY | PROVIDERS: PCP Family Medicine; Visit Provider Neurological Surgery | DX: G89.4 Chronic pain syndrome (principal); M48.061 Spinal stenosis, lumbar region without neurogenic claudication | CPT/HCPCS: 62362; 63047 ==

== ENCOUNTER 2024-01-22 15:02 | Outpatient (AMB) | payer MEDICARE, MEDICAID, SELFPAY ==
[2024-01-22 15:03] VITALS: BP 138/79; PULSE 97; RESP 18; O2SAT 99
--- NOTE | 2024-01-22 15:03 | A.OFFVIS_ITS ---
Vital Signs 01/22/24 15:03 BP 138/79 Respiration 18 Pulse 97 Pulse Oximetry (%) 99 Oxygen Delivery Method Room Air Intake Visit Reasons: RIGHT SIDE BUTTOCK PAIN Allergies oxycodone Adverse Reaction (Severe, Verified 08/27/23 14:33) vertigo sulfamethoxazole [From Bactrim] Adverse Reaction (Severe, Verified 08/27/23 14:33) AFIB trimethoprim [From Bactrim] Adverse Reaction (Severe, Verified 08/27/23 14:33) AFIB HPI Comments Details: Carlito presented today complaining on pain in the left buttock radiating to the left thigh to the level of the knee but not below the posterior surface of the knee. He had implantation of intrathecal pain pump performed by Dr. Feldman and myself on 01/18/2024. The procedure went uneventfully. Dr. Velasco performed laminotomy and insertion of the intrathecal catheter, he also anchored intrathecal catheter to the preve rtebral fascia. I completed procedure by implanting intrathecal pain pump in the upper left buttock. The dressing was changed today. The wounds are slightly edematous however no redness no pathological discharge and minimal tenderness on palpation. He reports numbness on palpation in projection of the exiting of the sciatic nerve and spastic sensation in the posterior muscle group of the left thigh. Sterile dry dressing was applied. He is unlikely suffering from any inadvertent injury from the procedure. Possibility exists of just spasticity in a posterior group muscle of the left thigh. He has cyclobenzaprine prescribed 10 mg at home I recommended him to take this medication once a day. He also was prescribed the oral hydromorphone for postoperative pain he can use this medication as well. I also recommended him to take magnesium supplementation OTC. Past Procedures: 08/10/23: Attempt of ITDD implant-0% pain relief, procedure aborted 05/22/23: ITDD trial with Fentanyl -80% pain relief for 28 hours 04/20/23: Lumbar Nevro SCS trial-30-40% pain relief PRIOR Carlito is back in my office after a trial of intrathecal pain pump, he reports 28 hours of 80% pain improvement after injection of 20 micro g of fentanyl diluted in 3 cc of normal saline into the intrathecal space. There is very minimal CSF output found on the trial. I had to inject intrathecally Isovue-M contrast to demonstrate myelogram before injecting the med. He reports 28 hours of profound pain relief. He reports better mobility better activities of daily living, he reports better social interactions. After 28 hours pain gradually went back to pre- injection level. Patient wants to go for implantation of intrathecal pain pump. I explained to the patient that due to paucity of his CSF I may try the procedure however it is possible that if I will not find any CSF output from the catheter I would have to abandoned the procedure. Patient understood Past Procedures: 04/20/23: Lumbar Nevro SCS trial-30-40% pain relief PRIOR: Patient presents today for follow up to discuss spinal cord stimulation trial and implant for chronic back pain. He was re-evaluated by [facility] after lumbar spine CT scan and discussed thoracolumbar junction fusion which both surgeons and patient does not want to proceed as this would not provide him s ignificant pain relief. He was referred back to us by Neurosurgery office for potential SCS trial discussion. This was discussed previously and again today in greater details. We also discussed ITDD pain pump trial and implant as back up option. Patient is not taking any opioids now and might pursue this option with his PCP to assess his opioid tolerance and pain relief for future ITDD trial and implant if SCS does not provide him significant pain relief. The trialed and failed therapy has been reviewed with the patient and his . The risks, consequences, alternatives, and benefits of various treatment options were discussed with the patient in great detail, including conservative management, injections and procedures. Referral placed for psychology clearance in anticipation of SCS trial. PRIOR: Patient presents today to assess response to Bilateral intra-articular hip steroid injections on 07/11/[address] Lim. Patient reports 70% for left hip and 90% for right hip pain relief for following the procedure with improvement in his weight bearing tolerance, functioning and partially improved sleep. He continues to endorse low back pain due to significant degenerative changes and scoliosis. Patient was recently evaluated by our colleagues at [facility] on 08/03/22 after completing lumbar spine MRI on 07/12/22 with the full report noted below. Patient was discussed for fusion surgery after evaluating anatomical variance in his lumbar spine with a non-contrast lumbar CT. This has not been scheduled yet. Denies any recent cough, cold, infection, fever or other significant changes in medical history since last office visit. Patient denies any bladder or bowel incontinence or saddle anesthesia. Patient reports he is planning to go on vacation in September and is concerned for increase in pain for prolonged sitting for over [address] flight[address] We will prescribe short script of Vicodin as patient has tolerated this well in the past. Aware of allergy to oxycodone. PRIOR: Carlito is a pleasant 66 year old male who presents to the office with 40 year history of widespread pain. He is accompanied by his Arlin today. He reports severe persistent and progressively worsening lower back pain with radiation into BLE with associated numbness and tingling. He also notes severe axial pain that radiates into bilateral hips L>R. He denies any saddle anesthesia, weakness or bowel dysfunction. He does self cath which he attributes to lumbar RFA, as the symptoms started 2 weeks post procedure. He states his PCP recently ordered a lumbar spine MRI which will be performed on the at [facility]. He also reports a pelvic fracture in 2007. He has been evaluated by [facility] pain management and [facility]. He has had multiple interventions performed including HAILY, ablations as well as chiropractic manipulation, acupuncture, TENS unit and physical therapy with varying pain relief but no significant outcomes. He was also evaluated by [facility] and deemed not a surgical candidate. He has also trialed multiple oral and topical medications with minimal relief including tylenol, flexeril, gabapentin, as well as lidocaine patches and tiger balm with little to no relief. He is currently managed on cymbalta, Carbamazepine and topamax with less than adequate alleviation in symptoms. He reports his pain onset was gradual, constant and rates the pain a 5-10/10. His pain is aggravated by prolonged positioning as well as standing. He does note have a shuffling and slow gait. In terms of tissue damage he describes his pain as aching, shooting, numb as well as tiring and burning. He reports the pain is negatively impacting his general activity, mood, recreational activities, sleep and walking. His past medical history of consistent for Lynette's thyroiditis, COVID-19, DVT, Bipolar 1, Hyperlipidemia, hypothyroidism. [facility] Medical History LAU (dyspnea on exertion) ROSS (obstructive sleep apnea) Arthritis Hiatal hernia Anxiety Depression Elevated cholesterol Atrial fibrillation Umbilical hernia Habitual snoring Sleep apnea Self-catheterizes urinary bladder Disorder of sacroiliac joint Lumbar spinal stenosis Thyroid disease GERD (gastroesophageal reflux disease) Cognitive disorder Back pain Bladder atony Osteoarthritis of hips, bilateral Hypothyroidism Hyperlipidemia Bipolar 1 disorder DVT (deep venous thrombosis) COVID-19 Lynette's thyroiditis Sacroiliac joint pain Bilateral lumbar radiculopathy Spondylosis of lumbar spine Bilateral hip pain Spondylolisthesis Surgical History History of hand surgery History of esophagogastroduodenoscopy (EGD) (~10/2023) Hx of umbilical hernia repair Hx of colonoscopy Social History Household Members: Spouse Housing: House Are you a primary home care scheduler to a significant other at home: No Do you presently have visiting nurse or other home services: No Patient Tobacco Use Status: Never used Tobacco e-Cigarette/Vaping Use: Never Used Review of Systems Const All systems reviewed & are unremarkable except as noted in HPI and below Physical Exam Vital Signs: Last Vital Signs Pulse 97 01/22/24 15:03 Resp 18 01/22/24 15:03 BP 138/79 01/22/24 15:03 Pulse Ox 99 01/22/24 15:03 Oxygen Delivery Method Room Air 01/22/24 15:03 General: Appears afebrile. Alert and oriented. Mood and affect appropriate. Follows and participates in conversation appropriately. Respiratory effort is unlabored. Able to transition from sit to stand unassisted. Ambulates with bilaterally normal heel strike and toe off. General: Yes no CVA tenderness Back/Spine/Pelvis Other: Midline incisional wound-No pathological discharge, no swelling and no erythema.?Onesimo intact. Dressing was changed today in the clinic. Back: no CVA tenderness Cervical Spine: cervical muscular tenderness, pain with cervical ROM and No Cervical spine tenderness Thoracic/Lumbar Spine: thoracic and lumbar spine normal to inspection, Lasegue's sign negative, straight leg raise negative bilaterally, pain with thoraco-lumbar ROM, thoraco-lumbar ROM limited, No thoracic spinal tenderness and lumbar spinal tenderness at L4 and at L5 Pelvis: no buttock tenderness Assessment & Plan Assessment & Plan (1) Spinal stenosis of lumbar region with radiculopathy: Code(s): M48.061 - Spinal stenosis, lumbar region without neurogenic claudication; M54.16 - Radiculopathy, lumbar region Category: Medical (2) Osteoarthritis of hips, bilateral: Code(s): M16.0 - Bilateral primary osteoarthritis of hip Category: Medical (3) Sacroiliac joint pain: Code(s): M53.3 - Sacrococcygeal disorders, not elsewhere classified Category: Medical (4) Spondylosis of lumbar spine: Code(s): M47.816 - Spondylosis without myelopathy or radiculopathy, lumbar region Category: Medical (5) Chronic pain syndrome: Code(s): G89.4 - Chronic pain syndrome Category: Medical (6) Cervicalgia: Code(s): M54.2 - Cervicalgia Category: Medical Plan Postoperative day 6. after Dr. Feldman and myself implantation of intrathecal pain pump with laminotomy. The discussion is as above. I see this patient next week and evaluate his condition further. He received so far continuous dose of fentanyl however he does not get any boluses yet. Coding Level of Care Code Est Pt Level 3 (78610) Diagnoses Spinal stenosis of lumbar region with radiculopathy M48.061; M54.16 Osteoarthritis of hips, bilateral M16.0 Sacroiliac joint pain M53.3 Spondylosis of lumbar spine M47.816 Chronic pain syndrome G89.4 Cervicalgia M54.2
== END 2024-01-22 15:06 | disposition home or self-care (01) ==
LOC: HO.PMCPRC 15:02
PROVIDERS: PCP Family Medicine; Visit Provider Anesthesiology
DX: M48.061 Spinal stenosis, lumbar region without neurogenic claudication (principal); M54.16 Radiculopathy, lumbar region; M16.0 Bilateral primary osteoarthritis of hip; M53.3 Sacrococcygeal disorders, not elsewhere classified; M47.816 Spondylosis without myelopathy or radiculopathy, lumbar region; G89.4 Chronic pain syndrome; M54.2 Cervicalgia
CPT/HCPCS: 99024

== ENCOUNTER → 2024-01-22 15:02 | Outpatient (BNVA) | payer MEDICARE, MEDICAID, SELFPAY | PROVIDERS: PCP Family Medicine; Visit Provider Anesthesiology | DX: M48.061 Spinal stenosis, lumbar region without neurogenic claudication (principal); M47.816 Spondylosis without myelopathy or radiculopathy, lumbar region; M16.0 Bilateral primary osteoarthritis of hip; M53.3 Sacrococcygeal disorders, not elsewhere classified; M54.2 Cervicalgia; G89.4 Chronic pain syndrome | CPT/HCPCS: 99212 ==

== ENCOUNTER 2024-01-30 11:46 | Outpatient (AMB) | payer MEDICARE, MEDICAID, SELFPAY ==
[2024-01-30 12:14] VITALS: BP 143/83; PULSE 84; O2SAT 95
--- NOTE | 2024-01-30 12:14 | MHC.OFFVIS ---
Vital Signs 01/30/24 12:14 BP 143/83 H Blood Pressure Location Lt brachial Position Sitting Pulse 84 Pulse Source Pulse Oximeter Pulse Oximetry (%) 95 Oxygen Delivery Method Room Air Intake Visit Reasons: S/p ITDD Implant 01/18/24 (2nd Visit) Allergies oxycodone Adverse Reaction (Severe, Verified 01/30/24 12:15) vertigo sulfamethoxazole [From Bactrim] Adverse Reaction (Severe, Verified 01/30/24 12:15) AFIB trimethoprim [From Bactrim] Adverse Reaction (Severe, Verified 01/30/24 12:15) AFIB Medication List - Last Reconciled 01/30/24 by Sana Pink, [employer] acetaminophen 1,000 mg PO Q6H PRN atorvastatin 20 mg PO BEDTIME carbamazepine (Tegretol) 400 mg PO BEDTIME cephalexin 1,000 mg (2 x 500 mg) PO Q8H 14 days cranberry extract (Cranberry Concentrate) 1,500 mg PO DAILY cyclobenzaprine 10 mg PO BEDTIME PRN d-mannose mg PO duloxetine 60 mg PO BEDTIME duloxetine 30 mg PO BEDTIME gabapentin 300 mg PO BEDTIME 90 days hydromorphone 2 mg PO Q6H PRN 7 days levothyroxine 50 mcg PO DAILY lidocaine 4% 1 patch topical BEDTIME PRN metoprolol tartrate 25 mg PO BID naloxone 4 mg/actuation 4 mg intranasal Q2M PRN 1 day omeprazole 20 mg PO DAILY PRN pantoprazole 40 mg PO BID topiramate 25 mg PO BID HPI Comments Details: [place] presented today for the follow-up and dressing change as well as discussion about intrathecal pain pump [employer]. He reported today very good pain relief of his axial back pain including pain relief in the back pain relief in the thoracic back as well as pain in the neck (!!). He had implantation of intrathecal pain pump performed by Dr. Feldman and myself on 01/18/2024. The procedure went uneventfully. Dr. Velasco performed laminotomy and insertion of the intrathecal catheter, he also anchored intrathecal catheter to the prevertebral fascia. I completed procedure by implanting intrathecal pain pump in the upper left buttock. The dressing was changed today. The wounds are clean and dry , no edema, no redness, no pathological discharge and no tenderness on palpation. [place] were removed today. Sterile dressing was applied. Patient was again reminded to were the binder compressing the Sterile dry dressing was applied. He is unlikely suffering from any inadvertent injury from the procedure. Possibility exists of just spasticity in a posterior group muscle of the left thigh. He has cyclobenzaprine prescribed 10 mg at home I recommended him to take this medication once a day. He also was prescribed the oral hydromorphone for postoperative pain he can use this medication as well. I also recommended him to take magnesium supplementation OTC. Past Procedures: 08/10/23: Attempt of ITDD implant-0% pain relief, procedure aborted 05/22/23: ITDD trial with Fentanyl -80% pain relief for 28 hours 04/20/23: Lumbar Nevro SCS trial-30-40% pain relief PRIOR Carlito is back in my office after a trial of intrathecal pain pump, he reports 28 hours of 80% pain improvement after injection of 20 micro g of fentanyl diluted in 3 cc of normal saline into the intrathecal space. There is very minimal CSF output found on the trial. I had to inject intrathecally Isovue-M contrast to demonstrate myelogram before injecting the med. He reports 28 hours of profound pain relief. He reports better mobility better activities of daily living, he reports better social interactions. After 28 hours pain gradually went back to pre- injection level. Patient wants to go for implantation of intrathecal pain pump. I explained to the patient that due to paucity of his CSF I may try the procedure however it is possible that if I will not find any CSF output from the catheter I would have to abandoned the procedure. Patient understood Past Procedures: 04/20/23: Lumbar Nevro SCS trial-30-40% pain relief PRIOR: Patient presents today for follow up to discuss spinal cord stimulation trial and implant for chronic back pain. He was re-evaluated by [facility] after lumbar spine CT scan and discussed thoracolumbar junction fusion which both surgeons and patient does not want to proceed as this would not provide him significant pain relief. He was referred back to us by Neurosurgery office for potential SCS trial discussion. This was discussed previously and again today in greater details. We also discussed ITDD pain pump trial and implant as back up option. Patient is not taking any opioids now and might pursue this option with his PCP to assess his opioid tolerance and pain relief for future ITDD trial and implant if SCS does not provide him significant pain relief. The trialed and failed therapy has been reviewed with the patient and his . The risks, consequences, alternatives, and benefits of various treatment options were discussed with the patient in great detail, including conservative management, injections and procedures. Referral placed for psychology clearance in anticipation of SCS trial. PRIOR: Patient presents today to assess response to Bilateral intra-articular hip steroid injections on 07/11/[address] Lim. Patient reports 70% for left hip and 90% for right hip pain relief for following the procedure with improvement in his weight bearing tolerance, functioning and partially improved sleep. He continues to endorse low back pain due to significant degenerative changes and scoliosis. Patient was recently evaluated by our colleagues at [facility] on 08/03/22 after completing lumbar spine MRI on 07/12/22 with the full report noted below. Patient was discussed for fusion surgery after evaluating anatomical variance in his lumbar spine with a non-contrast lumbar CT. This has not been scheduled yet. Denies any recent cough, cold, infection, fever or other significant changes in medical history since last office visit. Patient denies any bladder or bowel incontinence or saddle anesthesia. Patient reports he is planning to go on vacation in September and is concerned for increase in pain for prolonged sitting for over [address] during flight[address] We will prescribe short script of Vicodin as patient has tolerated this well in the past. Aware of allergy to oxycodone. PRIOR: Carlito is a pleasant 66 year old male who presents to the office with 40 year history of widespread pain. He is accompanied by his Arlin today. He reports severe persistent and progressively worsening lower back pain with radiation into BLE with associated numbness and tingling. He also notes severe axial pain that radiates into bilateral hips L>R. He denies any saddle anesthesia, weakness or bowel dysfunction. He does self cath which he attributes to lumbar RFA, as the symptoms started 2 weeks post procedure. He states his PCP recently ordered a lumbar spine MRI which will be performed on the at [place]. He also reports a pelvic fracture in 2007. He has been evaluated by [facility] pain management and [facility]. He has had multiple interventions performed including HAILY, ablations as well as chiropractic manipulation, acupuncture, TENS unit and physical therapy with varying pain relief but no significant outcomes. He was also evaluated by [facility] and deemed not a surgical candidate. He has also trialed multiple oral and topical medications with minimal relief including tylenol, flexeril, gabapentin, as well as lidocaine patches and tiger balm with little to no relief. He is currently managed on cymbalta, Carbamazepine and topamax with less than adequate alleviation in symptoms. He reports his pain onset was gradual, constant and rates the pain a 5-10/10. His pain is aggravated by prolonged positioning as well as standing. He does note have a shuffling and slow gait. In terms of tissue damage he describes his pain as aching, shooting, numb as well as tiring and burning. He reports the pain is negatively impacting his general activity, mood, recreational activities, sleep and walking. His past medical history of consistent for Lynette's thyroiditis, COVID-19, DVT, Bipolar 1, Hyperlipidemia, hypothyroidism. [facility] Medical History LAU (dyspnea on exertion) ROSS (obstructive sleep apnea) Arthritis Hiatal hernia Anxiety Depression Elevated cholesterol Atrial fibrillation Umbilical hernia Habitual snoring Sleep apnea Self-catheterizes urinary bladder Disorder of sacroiliac joint Lumbar spinal stenosis Thyroid disease GERD (gastroesophageal reflux disease) Cognitive disorder Back pain Bladder atony Osteoarthritis of hips, bilateral Hypothyroidism Hyperlipidemia Bipolar 1 disorder DVT (deep venous thrombosis) COVID-19 Lynette's thyroiditis Sacroiliac joint pain Bilateral lumbar radiculopathy Spondylosis of lumbar spine Bilateral hip pain Spondylolisthesis Surgical History History of hand surgery History of esophagogastroduodenoscopy (EGD) (~10/2023) Hx of umbilical hernia repair Hx of colonoscopy Social History Household Members: Spouse Housing: House Are you a primary college and career counselor to a significant other at home: No Do you presently have visiting nurse or other home services: No Patient Tobacco Use Status: Never used Tobacco e-Cigarette/Vaping Use: Never Used Review of Systems Const All systems reviewed & are unremarkable except as noted in HPI and below Physical Exam Vital Signs: Last Vital Signs Pulse 84 01/30/24 12:14 BP 143/83 H 01/30/24 12:14 Pulse Ox 95 01/30/24 12:14 Oxygen Delivery Method Room Air 01/30/24 12:14 General: Appears afebrile. Alert and oriented. Mood and affect appropriate. Follows and participates in conversation appropriately. Respiratory effort is unlabored. Able to transition from sit to stand unassisted. Ambulates with bilaterally normal heel strike and toe off. General: Yes no CVA tenderness Back/Spine/Pelvis Other: Midline incisional wound-No pathological discharge, no swelling and no erythema.?[place] removed Dressing was changed today in the clinic. Back: no CVA tenderness Cervical Spine: cervical muscular tenderness, pain with cervical ROM and No Cervical spine tenderness Thoracic/Lumbar Spine: thoracic and lumbar spine normal to inspection, Lasegue's sign negative, straight leg raise negative bilaterally, pain with thoraco-lumbar ROM, thoraco-lumbar ROM limited, No thoracic spinal tenderness and lumbar spinal tenderness at L4 and at L5 Pelvis: no buttock tenderness Results Reviewed Results Reviewed: XR PELVIS 04/19/22 FINDINGS: Moderate degenerative changes of the left hip. Mild degenerative changes of the right hip. IMPRESSION: Moderate degenerative changes of the left hip. Mild degenerative changes of the right hip. MR LUMBAR SPINE WITHOUT CONTRAST 07/12/22 FINDINGS: S-shaped lumbar scoliosis with mild dextrocurvature, apex at L1-L2 and levocurvature, apex at L4-L5. There is straightening of the normal lumbar lordosis. 9 mm grade 2 anterolisthesis at L5-S1 secondary to chronic bilateral L5 pars interarticularis defects. Otherwise, diffuse stepwise grade 1 retrolistheses throughout the lumbar spine. Vertebral body heights are maintained. There is no suspicious osseous lesion. Diffuse disc desiccation and severe disc height loss with relative sparing at L4-L5. Multilevel predominantly type II Modic endplate changes with intermixed type I Modic endplate changes, most pronounced at L1-L2. Multilevel anterior osteophytic spurring is seen. There is congenital spinal canal stenosis on the basis of short pedicles with either crowding of the epidural fat or superimposed epidural lipomatosis. Multilevel degenerative changes with level by level detail as follows: T12-L1: Disc osteophyte complex with early migrated broad-based left paracentral disc extrusion. Mild bilateral facet arthrosis and ligamentum flavum thickening. Mild spinal canal and mild right without left neural foraminal stenosis. L1-L2: Disc osteophyte complex and likely small superiorly migrated left subarticular disc extrusion. Mild to moderate facet arthrosis. Moderate spinal canal stenosis and bilateral subarticular zone narrowing with mass effect along the traversing left L2 nerve root. Mild bilateral neural foraminal stenosis with impingement upon the extraforaminal right L1 nerve root. L2-L3: Disc osteophyte complex with likely superimposed small inferiorly migrated left subarticular disc extrusion and moderate bilateral facet arthrosis with ligamentum flavum thickening. Circumferential prominence/crowding of the epidural fat. Moderate to severe spinal canal stenosis. Mild to moderate left and mild right neural foraminal stenosis. L3-L4: Disc osteophyte complex. Moderate bilateral facet arthrosis and ligamentum flavum thickening. Circumferential prominence/crowding of the epidural fat. 7 mm hypointense focus above the level of the disc space in the right paracentral region favored to reflect extruded air contributing to severe spinal canal stenosis with mass effect along the cauda equina nerve roots. Moderate to severe spinal canal stenosis at the level of the disc and bilateral subarticular zone narrowing with mass effect along the traversing right greater than left L4 nerve roots. Severe bilateral neural foraminal stenosis with compression of the exiting L3 nerve roots. L4-L5: Small annular disc bulge with moderate facet arthrosis and circumferential prominent/crowding of the epidural fat. Mild to moderate effacement of the thecal sac. Mild to moderate left and mild right neural foraminal stenosis. L5-S1: Uncovered posterior disc, advanced facet arthrosis, and epidural lipomatosis. Complete effacement with mass effect along the thecal sac. Severe bilateral neural foraminal stenosis with compression of the exiting bilateral L5 nerve roots. The conus medullaris terminates at the level of T12-L1. Tendency of the cauda equina at T12-L1 related to multilevel high-grade spinal canal stenosis more inferiorly. The distal spinal cord is normal in appearance. . No epidural fluid collection, hematoma, or mass. There is moderate fatty atrophy of the paraspinal musculature. Right renal cyst for which no further imaging follow-up is required. IMPRESSION: 1. S-shaped lumbar scoliosis with diffuse severe discogenic disease with relative sparing of disc height loss at L4-L5. Congenital spinal canal stenosis with either crowding of the epidural fat or superimposed epidural lipomatosis on a background of lumbar spondylosis. Moderate to severe spinal canal stenosis at L2-L3 and L3-L4 and moderate spinal canal stenosis at L1-L2. Above the L3-L4 disc space, there is a presumed 7 mm focus of extruded air where there is severe spinal canal stenosis and mass effect along the cauda equina nerve roots. 2. At L5-S1, grade 2 anterolisthesis secondary to chronic bilateral L5 pars interarticularis defects. Epidural lipomatosis completely effaces the thecal sac at this level, and there is severe bilateral neural foraminal stenosis with compression of the exiting bilateral L5 nerve roots. 3. Severe bilateral neural foraminal stenosis at L3-L4 with compression of the exiting L3 nerve roots. CT LUMBAR SPINE WITHOUT CONTRAST 08/21/22 CLINICAL INFORMATION: Spinal stenosis, neurogenic claudication FINDINGS: Transitional lumbosacral anatomy with hypertrophy of the L5 transverse processes and pseudoarticulation with the sacral ala. Associated advanced degenerative osseous spurring, subchondral sclerosis and cystic change at the synchondrosis on the right. For the purposes of this examination, the L5-S1 disc space can be seen on image 217, series 6. S-shaped lumbar curvature with dextrocurvature, apex at L2-L3 and levocurvature, apex at L4-L5. Slight left lateral listhesis at L1-L2 and right lateral listhesis at L3-L4. 8 mm grade 1 anterolisthesis at L5-S1 secondary to chronic bilateral L5 pars interarticularis defects. Mild grade 1 retrolistheses at L1-L2, L2-L3, and L4-L5. Vertebral body heights are maintained. There is no suspicious osseous lesion. There is multilevel disc height loss; severe and eccentric to the left from L1 to L4, moderate to severe at T12-L1 and moderate at L5-S1 with multilevel vacuum disc phenomenon. Degenerative subchondral sclerosis and cystic change, most pronounced and eccentric to the left at L1-L2 and L3-L4 and eccentric to the right at L5-S1. Please not canal patency is not well assessed on this examination due to inherent limitations of CT without intrathecal contrast. Within these limitations, multilevel degenerative changes with level by level detail are as follows: T12-L1: Disc osteophyte complex with broad-based paracentral disc osteophyte protrusion and mild bilateral facet arthrosis. Mild spinal canal narrowing and right neural foraminal encroachment without left neural foraminal stenosis. L1-L2: Disc osteophyte complex with some extruded air within the left lateral recess and mild bilateral facet arthrosis with ligamentum flavum thickening. Apparent at least mild spinal canal narrowing and left greater than right subarticular zone stenosis. Moderate left and mild right neural foraminal stenosis. L2-L3: Disc osteophyte complex with moderate bilateral facet arthrosis. At least mild spinal canal stenosis and left greater than right subarticular zone narrowing. Mild to moderate left and mild right neural foraminal narrowing. L3-L4: Disc osteophyte complex with superiorly migrated extruded air within the right paracentral zone and moderate bilateral facet arthrosis with ligamentum flavum thickening. Apparent moderate spinal canal stenosis and bilateral subarticular zone narrowing. Moderate left and mild right neural foraminal stenosis with impingement upon the exiting left L3 nerve root. L4-L5: Annular disc bulge with moderate bilateral facet arthrosis and ligamentum flavum thickening. Epidural lipomatosis. Moderate to severe thecal sac effacement. Mild bilateral neural foraminal stenosis. L5-S1: Posterior disc uncovering with superiorly migrated extruded air in the right paracentral zone, disc osteophyte complex, and bilateral facet arthrosis. Epidural lipomatosis severely effaces the thecal sac. Severe bilateral neural foraminal stenosis with compression along the exiting right greater than left L5 nerve roots. There is mild fatty atrophy of the paraspinal musculature. Right lower pole renal cyst not requiring further imaging follow-up. Partially imaged fatty infiltration of the pancreas. The abdominal aorta is of normal contour and caliber. Partially imaged presumably degenerative subchondral cyst in the right supra-acetabular iliac bone. IMPRESSION: 1. Transitional lumbosacral anatomy with hypertrophy of the L5 transverse processes and pseudoarticulation with the sacral ala and degenerative changes on the right. 2. S-shaped lumbar curvature with multilevel listhesis, as described. 3. Advanced multilevel discogenic disease as above. 4. At L5-S1, there is 8 mm grade 1 anterolisthesis at L5-S1 secondary to chronic bilateral L5 pars interarticularis defects. Resultant severe bilateral neural foraminal stenosis with compression along the exiting right greater than left L5 nerve roots. 5. Epidural lipomatosis contributes to moderate to severe L4-L5 and severe L5-S1 thecal sac effacement. 6. At L3-L4, moderate spinal canal stenosis and moderate left neural foraminal stenosis with impingement upon the exiting left L3 nerve root. XR THORACOLUMBAR SPINE 04/24/23 CLINICAL INFORMATION: Change of simulation pattern. COMPARISON: Lumbar spine radiographs of 04/19/2022. FINDINGS: Lung volumes are low. Rightward curvature and advanced degenerative change in the partially imaged upper portion of the lumbar spine. Moderate multilevel degenerative changes in the thoracic spine are most notable in the [id number] thoracic spine. Spinal stimulator device overlies the posterior aspect of the lower thoracic spine with leads projecting approximately at the T7 level. IMPRESSION: 1. Spinal stimulator device overlies the posterior aspect of the lower thoracic spine with leads projecting approximately at the T7 level. 2. Moderate multilevel degenerative changes in the thoracic spine are most notable in the mid to lower thoracic spine. Assessment & Plan Assessment & Plan (1) Spinal stenosis of lumbar region with radiculopathy: Code(s): M48.061 - Spinal stenosis, lumbar region without neurogenic claudication; M54.16 - Radiculopathy, lumbar region Category: Medical (2) Osteoarthritis of hips, bilateral: Code(s): M16.0 - Bilateral primary osteoarthritis of hip Category: Medical (3) Sacroiliac joint pain: Code(s): M53.3 - Sacrococcygeal disorders, not elsewhere classified Category: Medical (4) Spondylosis of lumbar spine: Code(s): M47.816 - Spondylosis without myelopathy or radiculopathy, lumbar region Category: Medical (5) Chronic pain syndrome: Code(s): G89.4 - Chronic pain syndrome Category: Medical (6) Cervicalgia: Code(s): M54.2 - Cervicalgia Category: Medical Plan Postoperative day 13. after Dr. Feldman and myself implantation of intrathecal pain pump with laminotomy. The discussion is as above. The patient is doing remarkably well. Reports almost an absence of his lower back pain he reports also absence or improvement pain in the thoracic spine and pain in the lower cervical spine. Those are unexpected but very welcomed results. He is not using his PTM I think at this time which would stay away from the PTM. The hygiene limitations was explained to the patient for the next 2 days and mobility limitations were explained to the patient for the next 6 weeks. His pump refilled same concentration 60 micro g per mL will be scheduled on 03/01/2024. Patient Instructions: I here by testify that I spent 34 minutes in conversation with this patient as well as planning his care and organizing this note. Coding Level of Care Code Est Pt Level 4 (16200) Diagnoses Spinal stenosis of lumbar region with radiculopathy M48.061; M54.16 Osteoarthritis of hips, bilateral M16.0 Sacroiliac joint pain M53.3 Spondylosis of lumbar spine M47.816 Chronic pain syndrome G89.4 Cervicalgia M54.2
== END 2024-01-30 12:15 | disposition home or self-care (01) ==
PROVIDERS: PCP Family Medicine; Visit Provider Anesthesiology
DX: M48.061 Spinal stenosis, lumbar region without neurogenic claudication (principal); M54.16 Radiculopathy, lumbar region; M16.0 Bilateral primary osteoarthritis of hip; M53.3 Sacrococcygeal disorders, not elsewhere classified; M47.816 Spondylosis without myelopathy or radiculopathy, lumbar region; G89.4 Chronic pain syndrome; M54.2 Cervicalgia
CPT/HCPCS: 99214

== ENCOUNTER → 2024-01-30 11:46 | Outpatient (BNVA) | payer MEDICARE, MEDICAID, SELFPAY | PROVIDERS: PCP Family Medicine; Visit Provider Anesthesiology | DX: M48.061 Spinal stenosis, lumbar region without neurogenic claudication (principal); M47.816 Spondylosis without myelopathy or radiculopathy, lumbar region; M16.0 Bilateral primary osteoarthritis of hip; M53.3 Sacrococcygeal disorders, not elsewhere classified; M54.2 Cervicalgia; G89.4 Chronic pain syndrome | CPT/HCPCS: 99212 ==

== ENCOUNTER 2024-02-28 11:56 | Emergency (ER) | payer MEDICARE, MEDICAID, SELFPAY ==
--- NOTE | ~2024-02-28 | CT_ITS ---
EXAMINATION: CT ANGIOGRAM CHEST CLINICAL INFORMATION: Hypoxia. Chest pain. Shortness of breath. COMPARISON: None available. TECHNIQUE: Multiple axial images were obtained through the chest after the administration of 85 mL of Omnipaque 350 intravenous contrast. Extensive vascular post-processing including two-dimensional and three-dimensional reformatted images were created and reviewed on an independent workstation. This CT examination was performed using dose optimization techniques as appropriate, variously including the following: *Automated exposure control *Adjustment of mA and/or kV according to patient size (this includes techniques or standardized protocols for targeted exams where dose is matched to indication/reason for exam; i.e. extremities or head) *Use of iterative reconstruction technique. DLP: 620 mGy centimeter. FINDINGS: Intraluminal filling defect extending from the mid distal main pulmonary artery to the subsegmental pulmonary artery branches bilaterally. No aneurysm or dissection, thoracic aorta. Patchy pulmonary groundglass in the lower lung lobes and to a lesser extent upper lung lobes. No pleural effusion. No pneumothorax. No bronchiectasis. No honeycombing. 2 mm noncalcified pulmonary nodule, right lower lung lobe, nonspecific. Respiratory airways is patent. No lymphadenopathy, mediastinum or perihilar. No lymphadenopathy in the axilla. No pericardial effusion. Small hiatal hernia. Multilevel thoracic spondylosis without acute fracture or gross listhesis. No lytic or blastic lesions. CT/CT angio chest PE protocol IMPRESSION: Acute pulmonary artery emboli, extensive and bilaterally. Findings were delivered via [place] [employer] to the requesting emergency physician marketing communications assistant Holley Yen at 1:57 PM.] Fleischner guidelines were followed. Electronically signed by: Odell Garrett MD 02/28/2024 01:59 PM [facility]
--- NOTE | ~2024-02-28 | XR_ITS ---
EXAMINATION: XR CHEST CLINICAL INFORMATION: cough COMPARISON: None available. TECHNIQUE: Frontal view of the chest was obtained. FINDINGS: Poor inspiration. No consolidation, pleural effusion or pneumothorax. Cardiomediastinal silhouette is normal in size. Multilevel thoracic spondylosis and S-shaped curvature of the thoracolumbar spine. XR/XR chest 1V IMPRESSION: No acute airspace disease. Electronically signed by: Odell Garrett MD 02/28/2024 01:21 PM EST
--- NOTE | ~2024-02-28 | CT_ITS ---
EXAMINATION: CT ABDOMEN WITH CONTRAST CLINICAL INFORMATION: Hiatal hernia. COMPARISON: None available. Chest CT performed concurrently. TECHNIQUE: Contiguous axial thin section helical images of the abdomen were performed following the administration of 85 mL of Omnipaque 350 intravenous contrast. The data set was reformatted in the coronal and sagittal planes and reviewed on an independent workstation. This CT examination was performed using dose optimization techniques as appropriate, variously including the following: *Automated exposure control *Adjustment of mA and/or kV according to patient size (this includes techniques or standardized protocols for targeted exams where dose is matched to indication/reason for exam; i.e. extremities or head) *Use of iterative reconstruction technique FINDINGS: LUNG BASES: Refer to the dedicated chest CT performed concurrently. -There is a small type I hiatus hernia at the GE junction. LIVER, GALLBLADDER, AND BILIARY TREE: Normal. PANCREAS: Normal. SPLEEN: Normal. ADRENAL GLANDS AND KIDNEYS: -Normal adrenal glands. -Kidneys demonstrate early excretion of contrast, limiting evaluation for calculi. No gross calculi seen. No hydronephrosis. There is a 2.2 cm simple cyst in the inferior pole of the right kidney. -Ureters are nondilated proximally. BOWEL LOOPS: No acute findings. Normal appearance. LYMPH NODES: No abnormal lymphadenopathy. VASCULAR: Moderate soft and calcific plaque of the abdominal aorta. No aneurysm. ABDOMINAL WALL: -Spinal stimulator device generator pack in the left superior buttock. -Spinal stimulator lead terminates at the inferior one third of T9 in the dorsal epidural space. BONES: -No suspicious lytic or blastic bone lesion. -Right convex scoliosis and moderate degenerative spondylosis of the lumbar spine. CT/CT abdomen w IV con IMPRESSION: 1. No acute findings in the abdomen. 2. Small hiatus hernia, type I. 3. Additional ancillary findings as discussed. Electronically signed by: Cooper Glez MD 02/28/2024 02:05 PM [facility]
[2024-02-28 12:00] VITALS: BP 126/74; PULSE 104
[2024-02-28 12:16] VITALS: BP 130/89; PULSE 103; RESP 22; TEMP 36.1; O2SAT 93; BMI 26.9
--- NOTE | 2024-02-28 12:21 | ECG_ITS ---
Test Reason : SOB Blood Pressure : */* mmHG Vent. Rate : 105 BPM Atrial Rate : 105 BPM P-R Int : 198 ms QRS Dur : 86 ms QT Int : 332 ms P-R-T Axes : 44 108 40 degrees QTcB Int : 438 ms Sinus tachycardia Rightward axis Low voltage QRS Borderline ECG When compared with ECG of 12-Oct-2023 13:11, Vent. rate has increased by 43 bpm QRS axis Shifted right Referred By: Holley Yen Electronically Signed By: VALERIANO TODD MD
--- NOTE | 2024-02-28 12:22 | ED_ITS ---
HPI - SOB/Dyspnea General Chief Complaint: Dyspnea Stated Complaint: SOB,WEAK FROM PCP OFFICE PER EMS Time Seen by Provider: 02/28/24 12:20 Source: patient, EMS, RN notes reviewed and old records reviewed Mode of arrival: EMS Limitations: no limitations History of Present Illness ED Provider: Shiela eYn PA-C HPI Narrative: 68-year-old male with a history of chronic pain syndrome on chronic opiates w/ intrathecal fentanyl pump who follows up with the pain Clinic here presents to the ER via EMS from the Pain Clinic for evaluation of shortness of breath and generalized weakness. He states he woke up today in his usual state of health. He went outside to work on his car and he states the cold air made him SOB. He drove to his appointment at the Pain Clinic today and states the walk from the car up the ramp outside made his breathing worse. He developed chest tightness and worsening difficulty breathing. When he entered the doorway inside he became dizzy and collapsed to his knees. He did not lose consciousness. EMS was called and he was started on supplemental O2 for hypoxia, unknown sats in the field. Patient states his son is home sick with a cold. He has had nasal congestion but no fever, chills, N/V/D or abdominal pain. He denies history of asthma or COPD. Never smoker. MD elicited complaint: shortness of breath Onset (ago): hour(s) Context: recent illness and occurred during exertion Timing: constant Severity: moderate Exacerbating factors: exertion and cold air Related Data Home Medications ?Medication ?Instructions ?Recorded ?Confirmed carbamazepine 200 mg tablet 400 mg PO BEDTIME 05/27/21 01/30/24 (Tegretol) duloxetine 30 mg capsule,delayed 30 mg PO BEDTIME 05/27/21 01/30/24 release duloxetine 60 mg capsule,delayed 60 mg PO BEDTIME 05/27/21 01/30/24 release levothyroxine 50 mcg tablet 50 mcg PO DAILY 05/27/21 01/30/24 metoprolol tartrate 25 mg tablet 25 mg PO BID 05/27/21 01/30/24 pantoprazole 40 mg tablet,delayed 40 mg PO BID 05/27/21 01/30/24 release topiramate 25 mg tablet 25 mg PO BID 05/27/21 01/30/24 acetaminophen 500 mg capsule 1,000 mg PO Q6H PRN Pain 10/12/23 01/30/24 atorvastatin 20 mg tablet 20 mg PO BEDTIME 10/12/23 01/30/24 cranberry extract 500 mg capsule 1,500 mg PO DAILY 10/12/23 01/30/24 (Cranberry Concentrate) d-mannose 500 mg capsule mg PO 10/12/23 01/30/24 lidocaine 4 % topical patch 1 patch topical BEDTIME PRN pain 10/12/23 01/30/24 omeprazole 20 mg capsule,delayed 20 mg PO DAILY PRN Gastric Reflux 01/03/24 01/30/24 release Previous Rx's ?Medication ?Instructions ?Recorded cyclobenzaprine 10 mg tablet 10 mg PO BEDTIME PRN for muscle 01/13/24 spasm #30 tabs cephalexin 500 mg capsule 1,000 mg (2 x 500 mg) PO Q8H 14 01/18/24 days #84 caps hydromorphone 2 mg tablet 2 mg PO Q6H PRN pain 7 days #28 01/18/24 tabs naloxone 4 mg/actuation nasal spray 4 mg intranasal Q2M PRN opioid 01/18/24 overdose 1 day #2 ea gabapentin 300 mg capsule 300 mg PO BEDTIME for pain 90 days 01/31/24 #90 caps Allergies Allergy/AdvReac Type Severity Reaction Status Date / Time oxycodone AdvReac Severe vertigo Verified 02/28/24 12:18 sulfamethoxazole AdvReac Severe AFIB Verified 02/28/24 12:18 [From Bactrim] trimethoprim [From Bactrim] AdvReac Severe AFIB Verified 02/28/24 12:18 [facility] Past Medical History Medical History LAU (dyspnea on exertion) ROSS (obstructive sleep apnea) Arthritis Hiatal hernia Anxiety Depression Elevated cholesterol Atrial fibrillation Umbilical hernia Habitual snoring Sleep apnea Self-catheterizes urinary bladder Disorder of sacroiliac joint Lumbar spinal stenosis Thyroid disease GERD (gastroesophageal reflux disease) Cognitive disorder Back pain Bladder atony Osteoarthritis of hips, bilateral Hypothyroidism Hyperlipidemia Bipolar 1 disorder DVT (deep venous thrombosis) COVID-19 Lynette's thyroiditis Sacroiliac joint pain Bilateral lumbar radiculopathy Spondylosis of lumbar spine Bilateral hip pain Spondylolisthesis Surgical History History of hand surgery History of esophagogastroduodenoscopy (EGD) (~10/2023) Hx of umbilical hernia repair Hx of colonoscopy Social History Social History Household Members: Spouse Housing: House Are you a primary care team coordinator scheduler to a significant other at home: No Do you presently have visiting nurse or other home services: No Patient Tobacco Use Status: Never used Tobacco Smoked in Last 30 Days: No e-Cigarette/Vaping Use: Never Used Use of substances other than those prescribed or required for medical reasons: No Advance Directives: Yes Advance Directives Information Provided: No Advance Directives on File: No Do you have a plan to hurt others: No Plan Physical Exam 2 Vital Signs: Vital Signs: Last Vital Signs Temp 96.9 F 02/28/24 12:16 Pulse 106 H 02/28/24 13:51 Resp 20 02/28/24 13:51 BP 111/87 02/28/24 13:51 Pulse Ox 94 02/28/24 13:51 O2 Del Method Oxymask 02/28/24 13:51 O2 Flow Rate 6 02/28/24 13:51 Oxygen Flow Rate 3 02/28/24 12:16 BMI result Body Mass Index 30.2 Appearance: Alert. Oriented X3. Moderate respiratory distress. Head: normocephalic, atraumatic. Eyes: Pupils equal, round and reactive to light. ENT: Pharynx normal. No tonsillar swelling or exudate. Neck: Normal inspection. Neck supple. CVS: Tachycardic, regular rhythm. Pulses normal. Respiratory: acute respiratory distress. Breath sounds diminished at the bases, increased WOB, RR mid 20s. no overt wheezing or rhonchi on exam. Abdomen: Softly distneded and nontender. +BS x4 Skin: Skin warm and dry. Normal skin color. Normal skin turgor. No rashes. Extremities: No lower extremity edema. No joint swelling. no redness or swelling but calves are tender bilaterally. Neuro/psych: Oriented X 3. No motor deficit. No sensory deficit. CN II-XII intact. Normal speech and cognition. Medications Administered Discontinued Medications Generic Name Dose Route Start Last Admin Trade Name Freq PRN Reason Stop Dose Admin Albuterol/Ipratropium 3 ml 02/28/24 12:46 02/28/24 12:51 Albuterol/Iprat 2.5/0.5mg 3 Ml Ampul.Neb INHALE 02/28/24 12:47 3 ml ONCE ONE Administration Enoxaparin Sodium 80 mg 02/28/24 14:02 02/28/24 14:06 Enoxaparin Sodium 80 Mg/0.8 Ml Syringe 1 mg/kg (80 mg) 02/28/24 14:03 80 mg SUBCUT Administration ONCE ONE Lactated Ringer's 1,000 mls @ 999 mls/hr 02/28/24 13:15 02/28/24 13:50 Lr IV 02/28/24 14:15 999 mls/hr .Q1H1M GE Administration Iohexol 100 ml 02/28/24 13:37 02/28/24 13:38 Iohexol 350 Mg/Ml 100 Ml Infus..Btl IV 02/28/24 13:38 85 ml ONCE ONE Administration Medical Decision Making Medical Decision Making MDM Narrative: 68 male with history of recent intrathecal pain pump placement by Dr. Lim on 01/17/25 presenting for acute onset SOB today with chest tightness. Symptoms started after walking outside into the cold air. He does have a son who is ill at home. Patient collapsed onto his knees when he walked up the ramp to his doctor's office today. No loss of consciousness. He was noted to be hypoxic and tachycardic. Patient saturating 88% on 4 L nasal cannula. SBP 110-130s. He has no pulmonary history. Given his presentation there is concern for acute pulmonary embolism. Point of care ultrasound shows RV dilatation and RV dysfunction, w/ Dr. Woodall. CT angiogram was performed and patient found to have bilateral pulmonary embolism. Evidence of RV strain with reflux contrast into the hepatic veins. On review the RV and LV look similar in size Patient meets criteria for intermediate risk PE and may be a candidate for EKOS therapy or thombectomy. PERT at [facility] consulted who accepts patient for transfer for formal evaluation. Patient updated on results of CT scan and plan for transfer to [facility]. Differential Diagnosis Differential Diagnoses: The differential diagnosis associated with the presentation includes Acute PE, viral URI, PNA, bronchitis Admission/Observation Consideration of admission/observation: Escalation of care including admission/observation considered Consult Healthcare Provider Management of the patient was discussed with: Waste Salvager PERT team at [facility] MDM Lab Attestation statement: I reviewed the patient's lab results. 02/28/24 12:40 02/28/24 12:40 Labs: Lab Results 02/28/24 02/28/24 02/28/24 Range/Units 12:40 12:45 13:48 WBC 10.6 (4.8-10.8) X10*3/uL RBC 4.53 L (4.60-5.80) X10*6/uL Hgb 14.6 (14.0-18.0) g/dl Hct 44.3 (42.0-52.0) % MCV 97.8 (80.0-98.0) fL MCH 32.2 (27.0-33.0) pg MCHC 33.0 (31.0-36.0) g/dl RDW 13.4 (11.0-16.0) % Plt Count 169 (160-400) X10*3/uL MPV 9.3 L (9.4-12.4) fL Immature Gran % (Auto) 0.4 (0.0-0.4) % Neut % (Auto) 72.1 (45-73) % Lymph % (Auto) 19.7 L (20-40) % [place] % (Auto) 5.9 (2-11) % Eos % (Auto) 1.7 (0-4) % Baso % (Auto) 0.2 (0-2) % Lymph # (Auto) 2.1 (1.2-4.9) X10*3/uL [place] # (Auto) 0.6 (0.1-1.2) X10*3/uL Eos # (Auto) 0.2 (0.0-0.4) X10*3/uL Baso # (Auto) 0.0 (0.0-0.2) X10*3/uL Abs Immat Gran (auto) 0.04 H (0.00-0.03) X10*3/uL Absolute Neuts (auto) 7.6 (2.0-8.3) x10*3/uL Absolute Nucleated RBC 0.000 (0.0-0.012) X10*3/uL Nucleated RBC % (auto) 0.0 (0.0-0.2) /100WBC PT 13.1 H (10.9-12.4) SEC INR 1.1 (0.9-1.1) APTT 30.3 (26.0-36.8) SEC VBG pH 7.24 L (7.32-7.43) VBG pCO2 48 mmHg VBG pO2 17 mmHg VBG HCO3 21 L (22-26) mmol/L VBG O2 Saturation < 30.0 % VBG Base Excess -6.1 mmol/L Sodium 140 (135-145) mmol/L Potassium 4.4 (3.3-5.1) mmol/L Chloride 111 H (96-108) mmol/L Carbon Dioxide 22 (22-29) mmol/L Anion Gap 11 L (12-20) BUN 20 H (9-16) mg/dL Creatinine 1.29 (0.5-1.4) mg/dL Estim Creat Clear Calc 54.4 Estimated GFR 56 Random Glucose 174 H (60-115) mg/dL Lactic Acid 3.3 H* (0.5-2.0) mmol/L Calcium 8.9 (8.4-10.2) mg/dL Magnesium 1.9 (1.6-2.6) mg/dL Total Bilirubin 0.4 (0.0-1.0) mg/dL Direct Bilirubin 0.1 (0.0-0.5) mg/dL AST 33 (5-37) U/L ALT 35 (0-40) U/L Alkaline Phosphatase 134 H (39-117) U/L Troponin I High Sens 49.6 H (<3.5-35.0) ng/L B-Natriuretic Peptide 24 (<100) pg/mL Total Protein 8.6 H (6.5-8.0) g/dL Albumin 4.2 (3.5-5.0) g/dL Procalcitonin 0.04 ng/mL Influenza Type A (PCR) NEGATIVE (Negative) Influenza Type B (PCR) NEGATIVE (Negative) RSV RNA Qual (PCR) NEGATIVE (Negative) SARS-CoV-2 RNA (RT-PCR) NEGATIVE (Negative) ABG Data Attestation ABG: I personally reviewed and interpreted this ABG as follows: Interpretation: acute metabolic acidosis Independent Interpretation I performed an independent interpretation of an: EKG and CT Scan Interpretation: diffuse bilateral PEs EKG w/ sinus tachycardia, ventricular rate 105 beats per minute, low voltage QRS with rightward axis deviation, normal QRS, normal QTC Radiology Impression Discussion of test interpretation with radiology: I have reviewed the radiologist's reading. Radiologist Impression: EXAMINATION: CT ANGIOGRAM CHEST CLINICAL INFORMATION: Hypoxia. Chest pain. Shortness of breath. COMPARISON: None available. TECHNIQUE: Multiple axial images were obtained through the chest after the administration of 85 mL of Omnipaque 350 intravenous contrast. Extensive vascular post-processing including two-dimensional and three-dimensional reformatted images were created and reviewed on an independent workstation. This CT examination was performed using dose optimization techniques as appropriate, variously including the following: *Automated exposure control *Adjustment of mA and/or kV according to patient size (this includes techniques or standardized protocols for targeted exams where dose is matched to indication/reason for exam; i.e. extremities or head) *Use of iterative reconstruction technique. DLP: 620 mGy centimeter. FINDINGS: Intraluminal filling defect extending from the mid distal main pulmonary artery to the subsegmental pulmonary artery branches bilaterally. No aneurysm or dissection, thoracic aorta. Patchy pulmonary groundglass in the lower lung lobes and to a lesser extent upper lung lobes. No pleural effusion. No pneumothorax. No bronchiectasis. No honeycombing. 2 mm noncalcified pulmonary nodule, right lower lung lobe, nonspecific. Respiratory airways is patent. No lymphadenopathy, mediastinum or perihilar. No lymphadenopathy in the axilla. No pericardial effusion. Small hiatal hernia. Multilevel thoracic spondylosis without acute fracture or gross listhesis. No lytic or blastic lesions. CT/CT angio chest PE protocol IMPRESSION: Acute pulmonary artery emboli, extensive and bilaterally. Findings were delivered via [employer] to the requesting emergency physician assistant golf course superintendent Holley Yen at 1:57 PM. Independent Historian Clinical information obtained from an independent historian. History obtained from or confirmed by: Spouse External Record Review External record reviewed: Outpatient record, Prior outpatient labs and Prior outpatient radiology Prescription Management I considered prescription management with: Pain Medication Chronic Conditions Patient?s care impacted by: Other (chronic pain) Critical Care Time Critical Care Time Critical Care Time: Yes Total Critical Care Time: 58 Attestation: I have personally provided critical care time exclusive of time spent on separately billable procedures. Time includes review of lab data, radiology results, discussion with consultants, and monitoring for potential decompensation. Intervention performed as documented. Discharge Plan Discharge Clinical Impression: Acute respiratory failure with hypoxia Pulmonary embolism Qualifiers: Pulmonary embolism type: other Chronicity: acute Acute cor pulmonale presence: unspecified Qualified Code(s): I26.99 - Other pulmonary embolism without acute cor pulmonale Patient Disposition: [facility] Transfer Details: [facility] Prescriptions: No Action cyclobenzaprine 10 mg tablet 10 mg PO BEDTIME PRN (Reason: for muscle spasm) Qty: 30 1RF cephalexin 500 mg capsule 1,000 mg PO Q8H 14 Days Qty: 84 1RF hydromorphone 2 mg tablet 2 mg PO Q6H PRN (Reason: pain) 7 Days Qty: 28 0RF Rx Instructions: Partial Fill upon patient request. naloxone 4 mg/actuation spray,non-aerosol 4 mg intranasal Q2M PRN (Reason: opioid overdose) 1 Days Qty: 2 8RF Rx Instructions: spray 1 dose into ONE nostril; alternate nostrils w each dose until help arrives gabapentin 300 mg capsule 300 mg PO BEDTIME 90 Days Qty: 90 0RF acetaminophen 500 mg Capsule 1,000 mg PO Q6H PRN (Reason: Pain) lidocaine 4 % adhesive patch,medicated 1 patch topical BEDTIME PRN (Reason: pain) atorvastatin 20 mg tablet 20 mg PO BEDTIME cranberry extract [Cranberry Concentrate] 500 mg Capsule 1,500 mg PO DAILY Rx Instructions: administer with meals d-mannose 500 mg Capsule PO omeprazole [Prilosec] 20 mg Capsule,Delayed Release(Dr/Ec) 20 mg PO DAILY PRN (Reason: Gastric Reflux) duloxetine 60 mg capsule,delayed release(DR/EC) 60 mg PO BEDTIME duloxetine 30 mg capsule,delayed release(DR/EC) 30 mg PO BEDTIME metoprolol tartrate 25 mg tablet 25 mg PO BID pantoprazole 40 mg tablet,delayed release (DR/EC) 40 mg PO BID levothyroxine 50 mcg tablet 50 mcg PO DAILY topiramate 25 mg tablet 25 mg PO BID carbamazepine [Tegretol] 200 mg tablet 400 mg PO BEDTIME Referrals: Bonilla Grant DO [Primary Care Provider] - Print Language: Yakut
[2024-02-28 12:45] LABS: MANUAL DIFF FLAG NO
[2024-02-28 12:46] LABS: Basophils Percent Auto 0.2 % (0-2); Eosinophils Absolute Auto 0.2 X10*3/uL (0.0-0.4); Eosinophils Percent Auto 1.7 % (0-4); Hematocrit 44.3 % (42.0-52.0); Hemoglobin 14.6 g/dl (14.0-18.0); Imm Gran Abs Auto 0.04 X10*3/uL (0.00-0.03); Imm Gran Pct Auto 0.4 % (0.0-0.4); Lymphocytes Absolute Auto 2.1 X10*3/uL (1.2-4.9); Lymphocytes Percent Auto 19.7 % (20-40); Mean Corpuscular Hemoglobin 32.2 pg (27.0-33.0); Mean Corpuscular Volume 97.8 fL (80.0-98.0); Mean Platelet Volume 9.3 fL (9.4-12.4); Monocytes Absolute Auto 0.6 X10*3/uL (0.1-1.2); Monocytes Percent Auto 5.9 % (2-11); Neutrophils Absolute Auto 7.6 x10*3/uL (2.0-8.3); Neutrophils Percent Auto 72.1 % (45-73); Platelet Count 169 X10*3/uL (160-400); Red Blood Count 4.53 X10*6/uL (4.60-5.80); Red Cell Distribution Width 13.4 % (11.0-16.0); White Blood Count 10.6 X10*3/uL (4.8-10.8)
[2024-02-28 12:50] LABS: VBG Base Excess -6.1 mmol/L; VBG HCO3 21 mmol/L (22-26); VBG O2 % Saturation < 30.0 %; VBG pCO2 48 mmHg; VBG pH 7.24 (7.32-7.43); VBG pO2 17 mmHg
[2024-02-28 12:51] VITALS: PULSE 105; RESP 21; O2SAT 93
[2024-02-28 12:51] LABS: Venous Blood Gas Refer to POC result
[2024-02-28] MEDS: Albuterol/Iprat 2.5/0.5MG 3 ML AMPUL.NEB INHALE (12:51)
[2024-02-28 13:06] LABS: B Type Natriuretic Peptide 24 pg/mL (<100)
[2024-02-28 13:07] LABS: Troponin-I High Sensitivity 49.6 ng/L (<3.5-35.0)
[2024-02-28 13:09] LABS: Alanine Aminotransferase 35 U/L (0-40); Albumin Level 4.2 g/dL (3.5-5.0); Alkaline Phosphatase 134 U/L (39-117); Anion Gap 11 (12-20); Aspartate Amino Transferase 33 U/L (5-37); Bilirubin Direct 0.1 mg/dL (0.0-0.5); Bilirubin Total 0.4 mg/dL (0.0-1.0); Blood Urea Nitrogen 20 mg/dL (9-16); Calcium 8.9 mg/dL (8.4-10.2); Carbon Dioxide 22 mmol/L (22-29); Chloride 111 mmol/L (96-108); Creatinine Clr Calc Pharmacy 54.4; Estimated Glomerular Filt Rate 56; Glucose Random 174 mg/dL (60-115); Magnesium 1.9 mg/dL (1.6-2.6); Potassium 4.4 mmol/L (3.3-5.1); Sodium 140 mmol/L (135-145); Total Protein 8.6 g/dL (6.5-8.0)
[2024-02-28 13:10] LABS: Lactic Acid 3.3 mmol/L (0.5-2.0)
[2024-02-28 13:31] LABS: Procalcitonin 0.04 ng/mL
[2024-02-28] MEDS: iohexoL 350 MG/ML 100 ML INFUS..BTL IV (13:38)
[2024-02-28 13:45] LABS: Influenza A PCR NEGATIVE (Negative); Influenza B PCR NEGATIVE (Negative); Resp Syncy Virus RNA Qual PCR NEGATIVE (Negative); SARS COV2 PCR INHOUSE NEGATIVE (Negative)
[2024-02-28] MEDS: Lactated Ringers 1,000 ML 999 ML IV (13:50)
[2024-02-28 13:51] VITALS: BP 111/87; PULSE 106; RESP 20; O2SAT 94
[2024-02-28 14:03] VITALS: BMI 30.2
[2024-02-28] MEDS: Enoxaparin Sodium 80 MG/0.8 ML SYRINGE SUBCUT (14:06)
[2024-02-28 14:13] LABS: INTERNATIONAL NORM RATIO 1.1 (0.9-1.1); Prothrombin Time 13.1 SEC (10.9-12.4)
[2024-02-28 14:16] LABS: Partial Thromboplastin Time 30.3 SEC (26.0-36.8)
[2024-02-28 14:46] VITALS: BP 124/79; PULSE 103; RESP 16; O2SAT 95
[2024-02-28 14:46] LABS: Reflex Lactate? Lactic Acid Added
[2024-02-28 15:00] VITALS: BP 124/79; PULSE 103; RESP 16; TEMP 35.8; O2SAT 95
== END 2024-02-28 15:04 | disposition short-term general hospital (02) ==
PROVIDERS: Physician Assistant; Emergency Provider Student in an Organized Health Care Education/Training Program; PCP Family Medicine
DX: J96.01 Acute respiratory failure with hypoxia (principal); I26.99 Other pulmonary embolism without acute cor pulmonale; K44.9 Diaphragmatic hernia without obstruction or gangrene; R53.1 Weakness; R00.0 Tachycardia, unspecified; R07.89 Other chest pain; Z79.899 Other long term (current) drug therapy; Z03.818 Encounter for observation for suspected exposure to other biological agents ruled out
CPT/HCPCS: 0241U; 36415; 71045; 71275; 74160; 80048; 80076; 82803; 83605; 83735; 83880; 84145; 84484; 85025; 85610; 85730; 87040; 93005; 94640; 96365; 96372; 99285; J1650; J7120; Q9967

== ENCOUNTER → 2024-02-28 12:21 | Outpatient (BNV) | payer MEDICARE, MEDICAID, SELFPAY | PROVIDERS: Emergency Provider Student in an Organized Health Care Education/Training Program; PCP Family Medicine; Visit Provider Internal Medicine Cardiovascular Disease | DX: R00.0 Tachycardia, unspecified (principal); R94.31 Abnormal electrocardiogram [ECG] [EKG] | CPT/HCPCS: 93010 ==

== ENCOUNTER → 2024-02-28 12:21 | Outpatient (BNV) | payer MEDICARE, MEDICAID, SELFPAY | PROVIDERS: Emergency Provider Student in an Organized Health Care Education/Training Program; PCP Family Medicine; Visit Provider Radiology Diagnostic Radiology | DX: R06.02 Shortness of breath (principal); R07.9 Chest pain, unspecified; K44.0 Diaphragmatic hernia with obstruction, without gangrene; R05.9 Cough, unspecified | CPT/HCPCS: 71045; 71275; 74160 ==

== ENCOUNTER 2024-03-05 11:55 | Outpatient (AMB) | payer MEDICARE, MEDICAID, SELFPAY ==
--- NOTE | 2024-03-05 12:10 | MHC.OFFVIS ---
Intake Visit Reasons: ITDD PUMP REFILL/Per [facility] Required: No Information Interpreted: clinical only (Sana hale) Allergies oxycodone Adverse Reaction (Severe, Verified 03/05/24 12:10) vertigo sulfamethoxazole [From Bactrim] Adverse Reaction (Severe, Verified 03/05/24 12:10) AFIB trimethoprim [From Bactrim] Adverse Reaction (Severe, Verified 03/05/24 12:10) AFIB Medication List - Last Reconciled 03/05/24 by Sana Hale, DIRECTOR OF VITAL STATISTICS acetaminophen 1,000 mg PO Q6H PRN atorvastatin 20 mg PO BEDTIME carbamazepine (Tegretol) 400 mg PO BEDTIME cephalexin 1,000 mg (2 x 500 mg) PO Q8H 14 days cranberry extract (Cranberry Concentrate) 1,500 mg PO DAILY cyclobenzaprine 10 mg PO BEDTIME PRN d-mannose mg PO duloxetine 60 mg PO BEDTIME duloxetine 30 mg PO BEDTIME gabapentin 300 mg PO BEDTIME 90 days hydromorphone 2 mg PO Q6H PRN 7 days levothyroxine 50 mcg PO DAILY lidocaine 4% 1 patch topical BEDTIME PRN metoprolol tartrate 25 mg PO BID naloxone 4 mg/actuation 4 mg intranasal Q2M PRN 1 day omeprazole 20 mg PO DAILY PRN pantoprazole 40 mg PO BID topiramate 25 mg PO BID warfarin 5 mg PO DAILY HPI Comments Details: Bread presented today for the follow-up and pain pump refill. He was in my office last week, he felt very dizzy, diaphoretic and tachycardic and he fell on the ground in the [address] of the office building. We rushed to help the patient, administered oxygen, brought him into the office, and called the ambulance. The ambulance delivered him to the [facility] the local hospitals where the diagnosis of pulmonary embolism was established. He was given treatment at that hospital and now he is in stable condition for the refill of the medication in the pain pump. See refill of the medication as below. She reports today very good pain relief on his lower back pain with the action of the pain pump however he hopes that with addition of the PTM he will spread the action of the pain pump and his coccydynia will become better as well. Currently he is on continuous dose of the fentanyl only and he uses very small amount of the medication in the pump. Past Procedures: 08/10/23: Attempt of ITDD implant-0% pain relief, procedure aborted 05/22/23: ITDD trial with Fentanyl -80% pain relief for 28 hours 04/20/23: Lumbar Nevro SCS trial-30-40% pain relief [facility] Medical History LAU (dyspnea on exertion) ROSS (obstructive sleep apnea) Arthritis Hiatal hernia Anxiety Depression Elevated cholesterol Atrial fibrillation Umbilical hernia Habitual snoring Sleep apnea Self-catheterizes urinary bladder Disorder of sacroiliac joint Lumbar spinal stenosis Thyroid disease GERD (gastroesophageal reflux disease) Cognitive disorder Back pain Bladder atony Osteoarthritis of hips, bilateral Hypothyroidism Hyperlipidemia Bipolar 1 disorder DVT (deep venous thrombosis) COVID-19 Lynette's thyroiditis Sacroiliac joint pain Bilateral lumbar radiculopathy Spondylosis of lumbar spine Bilateral hip pain Spondylolisthesis Surgical History History of hand surgery History of esophagogastroduodenoscopy (EGD) (~10/2023) Hx of umbilical hernia repair Hx of colonoscopy Social History Household Members: Spouse Housing: House Are you a primary progressive care unit registered nurse to a significant other at home: No Do you presently have visiting nurse or other home services: No Patient Tobacco Use Status: Never used Tobacco e-Cigarette/Vaping Use: Never Used Review of Systems Const All systems reviewed & are unremarkable except as noted in HPI and below Physical Exam General: Appears afebrile. Alert and oriented. Mood and affect appropriate. Follows and participates in conversation appropriately. Respiratory effort is unlabored. Able to transition from sit to stand unassisted. Ambulates with bilaterally normal heel strike and toe off. General: Yes no CVA tenderness Back/Spine/Pelvis Other: Midline incisional wound-No pathological discharge, no swelling and no erythema.?[place] removed Dressing was changed today in the clinic. Back: no CVA tenderness Cervical Spine: cervical muscular tenderness, pain with cervical ROM and No Cervical spine tenderness Thoracic/Lumbar Spine: thoracic and lumbar spine normal to inspection, Lasegue's sign negative, straight leg raise negative bilaterally, pain with thoraco-lumbar ROM, thoraco-lumbar ROM limited, No thoracic spinal tenderness and lumbar spinal tenderness at L4 and at L5 Pelvis: no buttock tenderness Assessment & Plan Assessment & Plan (1) Chronic pain syndrome: Code(s): G89.4 - Chronic pain syndrome Category: Medical (2) Spinal stenosis of lumbar region with radiculopathy: Code(s): M48.061 - Spinal stenosis, lumbar region without neurogenic claudication; M54.16 - Radiculopathy, lumbar region Category: Medical (3) Epidural lipomatosis: Code(s): D17.79 - Benign lipomatous neoplasm of other sites Category: Medical (4) Muscle spasm: Code(s): M62.838 - Other muscle spasm Category: Medical (5) Osteoarthritis of hips, bilateral: Code(s): M16.0 - Bilateral primary osteoarthritis of hip Category: Medical (6) Sacroiliac joint pain: Code(s): M53.3 - Sacrococcygeal disorders, not elsewhere classified Category: Medical (7) Spondylosis of lumbar spine: Code(s): M47.816 - Spondylosis without myelopathy or radiculopathy, lumbar region Category: Medical (8) Spondylolisthesis: Code(s): M43.10 - Spondylolisthesis, site unspecified Category: Medical Plan: The patient is not using yet his PTM he will contact Gerri from [employer] and teaching session will be arranged for him to learn how to use PTM device. Of note currently after the pulmonary embolism episode the patient will be on Coumadin indefinitely 5 mg q.d.. Plan Intrathecal pain pump refill. The patient came today in the office FOR THE CHANGE OF THE MEDICATION IN her PAIN PUMP. The name and date of were verified and informed consent was obtained for the procedure. ?The pump was interrogated and the residual amount of fluid was found to be 17.4 mL. He was positioned prone on the examination table AND THE AREA OF THE INTRATHECAL PUMP WAS PREPPED WITH CHLORAPREP. The fenestrated drape was sterilely applied over the area of the pump. Sterile gloves were worn and of the aspiration system was assembled containing 2 in 22 gauge noncoring needle, the needle was connected to extension tubing which was connected to the 20 cc sterile syringe. The pain pump was palpated under the skin in the patient's right buttock area. The needle was inserted through the skin and the central plug of the pain pump and fluid was aspirated. The clear fluid was going into the syringe the total amount of the fluid was 16.1 mL .. After that a new batch? of medication was obtained which was containing Fentanyl in concentration 60 micro g/ml . The admixture was made in 20 cc syringe prepared by [facility] compounding pharmacy. The syringe was connected to the bacterial filter, and then connected to the extension tubing. After that the medication in the syringe was slowly instilled into the pump with aspirations at 15 and 5 cc heart.? The pump was reprogrammed for the doses of 2.894 micro g of Fentanyl per day.? The patient was given 2 doses of PTM 14.993 micro g micrograms intrathecally? every 8 hours with maximum 2. activations per 24 hour. Medications: New naloxone 4 mg/actuation spray 1 dose into ONE nostril; alternate nostrils w each dose until help arrives 4 mg intranasal Q2M PRN 2 ea 8RF opioid overdose 1 day Patient Instructions: I here by testify that I spent 32 minutes in conversation with this patient as well as evaluating his prior records and prior diagnostic studies as well as planning his care and organizing this note. Coding Level of Care Code Est Pt Level 4 (03654) Diagnoses Chronic pain syndrome G89.4 Spinal stenosis of lumbar region with radiculopathy M48.061; M54.16 Epidural lipomatosis D17.79 Muscle spasm M62.838 Osteoarthritis of hips, bilateral M16.0 Sacroiliac joint pain M53.3 Spondylosis of lumbar spine M47.816 Spondylolisthesis M43.10
== END 2024-03-05 12:41 | disposition home or self-care (01) ==
PROVIDERS: PCP Family Medicine; Visit Provider Anesthesiology
DX: G89.4 Chronic pain syndrome (principal); M48.061 Spinal stenosis, lumbar region without neurogenic claudication; M54.16 Radiculopathy, lumbar region; D17.79 Benign lipomatous neoplasm of other sites; M62.838 Other muscle spasm; M16.0 Bilateral primary osteoarthritis of hip; M53.3 Sacrococcygeal disorders, not elsewhere classified; M47.816 Spondylosis without myelopathy or radiculopathy, lumbar region; M43.10 Spondylolisthesis, site unspecified
CPT/HCPCS: 99214

== ENCOUNTER → 2024-03-05 11:55 | Outpatient (BNVA) | payer MEDICARE, MEDICAID, SELFPAY | PROVIDERS: PCP Family Medicine; Visit Provider Anesthesiology | DX: G89.4 Chronic pain syndrome (principal); M48.061 Spinal stenosis, lumbar region without neurogenic claudication; M62.838 Other muscle spasm; M16.0 Bilateral primary osteoarthritis of hip; M53.3 Sacrococcygeal disorders, not elsewhere classified; M47.26 Other spondylosis with radiculopathy, lumbar region; M43.10 Spondylolisthesis, site unspecified; D17.79 Benign lipomatous neoplasm of other sites; Z45.1 Encounter for adjustment and management of infusion pump; Z79.899 Other long term (current) drug therapy | CPT/HCPCS: 99212 ==

== ENCOUNTER 2024-04-03 10:56 | Outpatient (AMB) | payer MEDICARE, MEDICAID, SELFPAY ==
[2024-04-03 10:58] VITALS: BP 130/79; PULSE 98; O2SAT 98; BMI 27.5
--- NOTE | 2024-04-03 10:58 | A.OFFVIS_ITS ---
Vital Signs 04/03/24 10:58 Height 5 ft 8 in Weight 181 lb BMI 27.5 BP 130/79 Blood Pressure Location Rt brachial Position Sitting Pulse 98 Pulse Source Pulse Oximeter Pulse Oximetry (%) 98 Oxygen Delivery Method Room Air Intake Visit Reasons: ITDD PUMP REFILL Allergies oxycodone Adverse Reaction (Severe, Verified 04/03/24 11:03) vertigo sulfamethoxazole [From Bactrim] Adverse Reaction (Severe, Verified 04/03/24 11:03) AFIB trimethoprim [From Bactrim] Adverse Reaction (Severe, Verified 04/03/24 11:03) AFIB HPI Comments Details: Carlito presented today for the follow-up and pain pump refill. He reports very good pain relief at rest, however he reports with activities his pain is elevated. However it was noted that in the past 1 month patient did not use much of his medication. One month ago he was refilled with 19.5 cc of fentanyl solution and he came today with only 17.4 solutions. He states that he atte mpted to apply the PTM device once or twice and he experienced itching after the application. We decided today that I will increase the time of the administration of his PTM dose of 14 micro g per mL from 15 minutes to 35 minutes. The number of the PTM doses will be the same twice a day. The lockout interval is 8 hours. We also noted that he has bulging of the fluid in the area of the pump implantation. I was able to aspirate 60 cc of clear sterile straw- colored yellow fluid without significant cloudiness in it. I presume it is a pump seroma. I ask the patient is if he has any allergy to any metals and he denied metal allergy. Past Procedures: 08/10/23: Attempt of ITDD implant-0% pain relief, procedure aborted 05/22/23: ITDD trial with Fentanyl -80% pain relief for 28 hours 04/20/23: Lumbar Nevro SCS trial-30-40% pain relief [facility] Medical History LAU (dyspnea on exertion) ROSS (obstructive sleep apnea) Arthritis Hiatal hernia Anxiety Depression Elevated cholesterol Atrial fibrillation Umbilical hernia Habitual snoring Sleep apnea Self-catheterizes urinary bladder Disorder of sacroiliac joint Lumbar spinal stenosis Thyroid disease GERD (gastroesophageal reflux disease) Cognitive disorder Back pain Bladder atony Osteoarthritis of hips, bilateral Hypothyroidism Hyperlipidemia Bipolar 1 disorder DVT (deep venous thrombosis) COVID-19 Lynette's thyroiditis Sacroiliac joint pain Bilateral lumbar radiculopathy Spondylosis of lumbar spine Bilateral hip pain Spondylolisthesis Surgical History History of hand surgery History of esophagogastroduodenoscopy (EGD) (~10/2023) Hx of umbilical hernia repair Hx of colonoscopy Social History Household Members: Spouse Housing: House Are you a primary body care manager to a significant other at home: No Do you presently have visiting nurse or other home services: No Patient Tobacco Use Status: Never used Tobacco e-Cigarette/Vaping Use: Never Used Review of Systems Const All systems reviewed & are unremarkable except as noted in HPI and below Physical Exam Vital Signs: Last Vital Signs Pulse 98 04/03/24 10:58 BP 130/79 04/03/24 10:58 Pulse Ox 98 04/03/24 10:58 Oxygen Delivery Method Room Air 04/03/24 10:58 BMI result Body Mass Index 27.5 General: Appears afebrile. Alert and oriented. Mood and affect appropriate. Follows and participates in conversation appropriately. Respiratory effort is unlabored. Able to transition from sit to stand unassisted. Ambulates with bilaterally normal heel strike and toe off. General: Yes no CVA tenderness Back/Spine/Pelvis Other: Midline incisional wound-No pathological discharge, no swelling and no erythema.?[place] removed Dressing was changed today in the clinic. Back: no CVA tenderness Cervical Spine: cervical muscular tenderness, pain with cervical ROM and No Cervical spine tenderness Thoracic/Lumbar Spine: thoracic and lumbar spine normal to inspection, Lasegue's sign negative, straight leg raise negative bilaterally, pain with thoraco-lumbar ROM, thoraco-lumbar ROM limited, No thoracic spinal tenderness and lumbar spinal tenderness at L4 and at L5 Pelvis: no buttock tenderness Assessment & Plan Assessment & Plan (1) Chronic pain syndrome: Code(s): G89.4 - Chronic pain syndrome Category: Medical (2) Spinal stenosis of lumbar region with radiculopathy: Code(s): M48.061 - Spinal stenosis, lumbar region without neurogenic claudication; M54.16 - Radiculopathy, lumbar region Category: Medical (3) Epidural lipomatosis: Code(s): D17.79 - Benign lipomatous neoplasm of other sites Category: Medical (4) Muscle spasm: Code(s): M62.838 - Other muscle spasm Category: Medical (5) Osteoarthritis of hips, bilateral: Code(s): M16.0 - Bilateral primary osteoarthritis of hip Category: Medical (6) Sacroiliac joint pain: Code(s): M53.3 - Sacrococcygeal disorders, not elsewhere classified Category: Medical (7) Spondylosis of lumbar spine: Code(s): M47.816 - Spondylosis without myelopathy or radiculopathy, lumbar region Category: Medical (8) Spondylolisthesis: Code(s): M43.10 - Spondylolisthesis, site unspecified Category: Medical Plan: See discussion as above. Looks like that patient is not using much of the pain medication yet. I will see him here in 35 days for the pump refill. Risks and benefits of opioid medications were carefully explained to the patient. He was prescribed naloxone in the past, he may use it for any side effects or complications of the pump pump. Plan Intrathecal pain pump refill. The patient came today in the office FOR THE CHANGE OF THE MEDICATION IN her PAIN PUMP. The name and date of were verified and informed consent was obtained for the procedure. ?The pump was interrogated and the residual amount of fluid was found to be 17.4 mL. He was positioned prone on the examination table AND THE AREA OF THE INTRATHECAL PUMP WAS PREPPED WITH CHLORAPREP. The fenestrated drape was sterilely applied over the area of the pump. Sterile gloves were worn and of the aspiration system was assembled containing 2 in 22 gauge noncoring needle, the needle was connected to extension tubing which was connected to the 20 cc sterile syringe. The pain pump was palpated under the skin in the patient's right buttock area. The needle was inserted through the skin and the central plug of the pain pump and fluid was aspirated. The clear fluid was going into the syringe the total amount of the fluid was 17.0 mL .. After that a new batch? of medication was obtained which was containing Fentanyl in concentration 60 micro g/ml . The admixture was made in 20 cc syringe prepared by [facility] compounding pharmacy. The syringe was connected to the bacterial filter, and then connected to the extension tubing. After that the medication in the syringe was slowly instilled into the pump with aspirations at 15 and 5 cc heart.? The pump was reprogrammed for the doses of 2.894 micro g of Fentanyl per day.? The patient was given 2 doses of PTM 14.985 micro g micrograms intrathecally? every 8 hours with maximum 2. activations per 24 hour. The time of bolus administration was increased from 15 minutes to 35 minutes. Patient Instructions: I here by testify that I spent 32 minutes in conversation with this patient as well as planning his care and organizing this note. Coding Level of Care Code Est Pt Level 4 (61941) Procedure Only Diagnoses Chronic pain syndrome G89.4 Spinal stenosis of lumbar region with radiculopathy M48.061; M54.16 Epidural lipomatosis D17.79 Muscle spasm M62.838 Osteoarthritis of hips, bilateral M16.0 Sacroiliac joint pain M53.3 Spondylosis of lumbar spine M47.816 Spondylolisthesis M43.10
--- OUTSIDE RECORDS SUMMARY | 2024-04-03 12:12 | XMS_ITS | Continuity of Care Document ---
Author Organization [facility] Address [address] [place] [address]- Care Team Providers Care Medical Imaging Technologist Name Role Phone Bonilla Grant DO Primary Care Physician Encounter 03/11/24 - 03/18/24 [facility] [address], [address] [place] [address]- Attending Physician: Jake Sheppard Admitting Physician: Jake Sheppard Referring Physician: Jake Sheppard Encounter Type: OutPatient One Time Allergies, Adverse Reactions, Alerts Substance Criticality Severity Reaction Reaction Severity Status oxyCODONE vertigo Active OxyCONTIN Vertigo Active Bactrim Active Immunizations Given and Recorded Vaccine Date Status Refusal Reason zoster vaccine, inactivated 05/26/21 Recorded zoster vaccine, inactivated 10/01/20 Recorded SARS-CoV-2 (COVID-19) mRNA BNT-162b2 vac 04/05/20 Recorded SARS-CoV-2 (COVID-19) mRNA BNT-162b2 vac 03/15/20 Recorded tetanus/diphtheria/pertussis, acel(Tdap) 07/14/11 Given Medications ascorbic acid 500 mg oral tablet ORAL, TABLET, 0 Refill(s),, 0 Refills, 06/18/18 10:33:00 AM EDT Start Date: 06/18/18 Status: Ordered Repeat number: 1 atorvastatin 20 mg oral tablet 1 tablet, By Mouth, Daily, # 90 tablet, 1 Refills, Maintenance, 12/07/23 11:22:00 AM EDT, [facility] #[id number], 170, cm, 11/05/23 9:56:00 EDT, Height, 82.5, kg, 11/05/23 9:56:00 EDT, Dry Weight Start Date: 12/07/23 Status: Ordered Quantity: 90.0 Unit: tablet Repeat number: 1 Carbamazepine Tablet 200 mg, two tablets at PM, Maintenance, 06/11/12 3:33:53 AM EDT Start Date: 06/11/12 Status: Ordered Repeat number: 1 duloxetine 30 mg oral enteric coated capsule 1 capsule = 30 mg, By Mouth, Daily, # 30 capsule, 0 Refills, Maintenance, 07/16/23 12:51:00 PM EDT, Partial fill upon patient request if the prescription is for a schedule II opioid drug. Start Date: 07/16/23 Status: Ordered Quantity: 30.0 Unit: capsule Repeat number: 1 duloxetine 60 mg oral enteric coated capsule 1 capsule, By Mouth, Daily, # 30 capsule, 0 Refills, 06/07/22 5:27:00 PM EDT, [facility] # [id number],170.1, cm, 11/07/21 15:33:00 EDT, Height, 83, kg, 01/28/21 12:44:00 EST, Dry Weight Start Date: 06/07/22 Status: Ordered Quantity: 30.0 Unit: capsule Repeat number: 1 famotidine 20 mg oral tablet 20 mg, 1, tablet, By Mouth, 2 times a day, PRN, # 60 tablet, Refills 6, Tot. Refills 6, Maintenance, breakthrough GERD, 10/29/23 1:44:00 PM EDT, Route to Pharmacy Electronically, [facility] # [id number], Partial fill upon patient request if the prescription is for a schedule II opioid drug., 170.1, cm, 10/29/23 13:21:00 EDT, Height Start Date: 10/29/23 Status: Ordered Quantity: 60.0 Unit: tablet Repeat number: 7 Indication: Gastro-esophageal reflux disease without esophagitis gabapentin 300 mg oral capsule 300 mg, 1, capsule, By Mouth, Daily at bedtime, Refills 0, Maintenance, 07/16/23 12:51:00 PM EDT, Partial fill upon patient request if the prescription is for a schedule II opioid drug. Start Date: 07/16/23 Status: Ordered Repeat number: 1 levothyroxine 0.05 mg oral tablet 1 tablet, By Mouth, Daily, # 90 tablet, 1 Refills, Maintenance, 10/27/23 8:56:00 AM EDT, [facility] #[id number], 170.1, cm, 09/26/23 10:33:00 EDT, Height Start Date: 10/27/23 Status: Ordered Quantity: 90.0 Unit: tablet Repeat number: 1 Metoprolol Tartrate 25 mg oral tablet 1 tablet, By Mouth, 2 times a day, # 180 tablet, 1 Refills, Maintenance, 10/20/23 11:52:00 AM EDT, [facility] #[id number], 170.1, cm, 09/26/23 10:33:00 EDT, Height Start Date: 10/20/23 Status: Ordered Quantity: 180.0 Unit: tablet Repeat number: 1 pantoprazole 40 mg oral delayed release tablet 1 tablet, By Mouth, 2 times a day, # 60 tablet, 0 Refills, Maintenance, 02/26/24 1:03:00 PM EST, 170, cm, 11/05/23 9:56:00 EDT, Height, 82.5, kg, 11/05/23 9:56:00 EDT, Dry Weight Start Date: 02/26/24 Status: Ordered Quantity: 60.0 Unit: tablet Repeat number: 1 topiramate 25 mg oral tablet 2 tablet, By Mouth, Daily, # 180 tablet, 1 Refills, Maintenance, 01/16/24 3:39:00 PM EST, [facility] #[id number], 170, cm, 11/05/23 9:56:00 EDT, Height, 82.5, kg, 11/05/23 9:56:00 EDT, Dry Weight Start Date: 01/16/24 Status: Ordered Quantity: 180.0 Unit: tablet Repeat number: 1 Tylenol 8 Hour Caplet = 1,300 mg, By Mouth, Every 8 hours, 0 Refills, Maintenance, 11/04/20 9:34:00 AM EDT, Partial fill upon patient request if the prescription is for a schedule II opioid drug. Start Date: 11/04/20 Status: Ordered Repeat number: 1 warfarin 5 mg oral tablet 1 tablet = 5 mg, By Mouth, Daily, # 90 tablet, 0 Refills, Maintenance, 03/13/24 3:11:00 PM EST, Tablet, [facility] # [id number], Partial fill upon patient request if the prescription is for a schedule II opioid drug., 170.1, cm, 03/07/24 10:30:00 EST, Height, 82.5, kg, 11/05/23 9:56:00 EDT, Dry Weight Start Date: 03/13/24 Status: Ordered Quantity: 90.0 Unit: tablet Repeat number: 1 wedge pillow wedge pillow, See Instructions, # 1 each, Refills 0, Tot. Refills 0, Maintenance, please use every night, 01/03/21 12:26:00 PM EST, Supply Start Date: 01/03/21 Status: Ordered Quantity: 1.0 Unit: each Repeat number: 1 Problem List Condition Confirmation Course Effective Dates Status H ealth Status Informant Work related injury 1 Confirmed Active DVT of lower limb, acute Confirmed Active Elevated alkaline phosphatase level Confirmed Active Bladder atony Confirmed Active Chronic back pain Confirmed Active Cognitive disorder Confirmed Active Cyst of kidney Confirmed Active Degeneration of lumbar intervertebral disc Confirmed Active Self-catheterizes urinary bladder Confirmed Active GERD (gastroesophageal reflux disease) Confirmed Active History of DVT (deep vein thrombosis) 2 Confirmed Active Lynette thyroiditis Confirmed Active History of polyp of colon Confirmed Active History of COVID-19 Confirmed Active Hypercoagulable state Confirmed Active Hyperlipidemia Confirmed Active Hypothyroidism Confirmed Active Low back pain Confirmed Active Lumbar spondylosis Confirmed Active Well adult exam Confirmed Active Prostate cancer screening Confirmed Active Pulmonary emboli Confirmed Active Right ventricular hypertrophy Confirmed Active Sacroiliac disorder Confirmed Active Saddle pulmonary embolus Confirmed Active Snoring Confirmed Active Moderate somatic symptom disorder with predominant pain Confirmed Active Lumbar spinal stenosis Confirmed Active Lumbar spondylolysis 3 Confirmed Active Umbilical hernia Confirmed Active 1DOI: 06/03/15 low back 2In 2008 3L5-S1 grade 1 anterior spondylolisthesis Results Radiology Reports * Exam Date Time Procedure Performing Provider Status 03/11/24 3:46 PM US Renal Bladder Gavin Dominguez; Au th (Verified) Notes: (US Renal Bladder) Reason For Exam: Retention of urine, unspecified RESULT: US Renal Bladder US Renal Bladder Reason: Retention of urine, unspecified COMPARISON: 08/25/2022. FINDINGS: Right kidney: 10.2 cm in length. No hydronephrosis. Normal parenchymal thickness and echotexture. There are 2 nonobstructing echogenic foci in the upper pole ranging in size from 2 to 5 mm. There is a cyst in the lower pole which measures 2.1 x 2.2 x 2.2 cm. Left kidney: 9.9 cm in length. No hydronephrosis. Normal parenchymal thickness and echotexture. No stones. No suspicious mass. Urinary bladder: The urinary bladder volume measures 340 cc. A left ureteral urine jet is seen in the urinary bladder. The prostate measures 9.9 cc in volume. IMPRESSION: 1. 2 nonobstructing echogenic foci in the right kidney consistent with nonobstructing renal calculiranging in size from 2 to 5 mm. 2. 2.2 cm right renal cyst. WSN: [id number] Ordering Physician: Jake Campos Dictated By: Shabnam Hoffmann MD Dictated Date/Time: 03/11/24 4:09 pm Reviewed By: Shabnam Hoffmann MD Signed By: Shabnam Hoffmann MD Signed Date/Time: 03/11/24 4:09 pm Transcribed By: ANKIT Transcribed Date/Time: 03/11/24 4:06 pm Social History Social History Type Response Smoking Status Never (less than 100 in lifetime) entered on: 08/13/19 Sex Sex Representation Male (finding) Patient Care team information Care Team Personnel Name: Bonilla Grant DO Position: [facility] Physician - Primary Care Member Role: PCP Address: [address] [place] [address] [address] Telecom: Name: Marissa Ashton RN Position: [facility] RN Member Role: Primary Care Nurse Care Team Related Persons Name: SALLIE GORDON Insurance Providers Guarantor name: KAREN GORDON Health Plan Information #: 1 Payer: NA Member Number: [id number] Policy Number: NA Group Number: [id number] Health Plan Information #: 2 Payer: NA Member Number: [id number] Policy Number: NA Group Number: NA
--- OUTSIDE RECORDS SUMMARY | 2024-04-03 12:12 | XMS_ITS ---
Author Name [facility] Organization Unknown Results Test Name/Text Value Interpretation Date Range Source Chloride SerPl-sCnc 102mmol/L Normal [id number] 98 - 10 7 H[facility]CT Glucose SerPl-mCnc 92mg/dL Normal [id number] 65 - 99 HHCCT GFR/BSA.pred SerPlBld [id number] 61 Normal [id number] 59 - HHCCT Creat SerPl-mCnc 1.3mg/dL Normal [id number] 0.5 - 1.3 HHCCT BUN/Creat SerPl 12Ratio Normal [id number] 10 - 25 H HCCT Anion Gap Bld-sCnc 13 Normal [id number] 7 - 17 H[facility]CT Calcium SerPl-mCnc 9.1mg/dL Normal [id number] 8.7 - 10 .5 H[facility]CT CO2 SerPl-sCnc 25mmol/L Normal [id number] 22 - 33 HH CCT BUN SerPl-mCnc 16mg/dL Normal [id number] 8 - 21 HH CCT Sodium SerPl-sCnc 140mmol/L Normal [id number] 136 - 145 H[facility]CT Potassium SerPl-sCnc 4.6mmol/L Normal [id number] 3.4 - 5.3 HHCCT pro BNP, N-terminal 296pg/mL Above high normal [id number] - 125 H[facility]CT Phosphate SerPl-mCnc 3.1mg/dL Normal [id number] 2.7 - 4.5 HHCCT Magnesium SerPl-mCnc 2mg/dL Normal [id number] 1.6 - 2.7 HHCCT Chloride SerPl-sCnc 107mmol/L Normal [id number] 98 - 10 7 H[facility]CT Glucose SerPl-mCnc 113mg/dL Above high normal [id number] 65 - 99 HHCCT GFR/BSA.pred SerPlBld ZVA-FJH-[id number] 55 Below low normal [id number] 59 - HHCCT Creat SerPl-mCnc 1.4mg/dL Above high normal [id number] 0. 5 - 1.3 HHCCT BUN/Creat SerPl 12Ratio Normal [id number] 10 - 25 H HCCT Anion Gap Bld-sCnc 10 Normal [id number] 7 - 17 HHCCT Calcium SerPl-mCnc 9.4mg/dL Normal [id number] 8.7 - 10 .5 HHCCT CO2 SerPl-sCnc 24mmol/L Normal [id number] 22 - 33 HH CCT BUN SerPl-mCnc 17mg/dL Normal [id number] 8 - 21 HH CCT Sodium SerPl-sCnc 141mmol/L Normal [id number] 136 - 145 H[facility]CT Potassium SerPl-sCnc 5mmol/L Normal [id number] 3.4 - 5.3 HHCCT INR PPP 2.4 Normal [id number] HHCCT Prothrombin time 27.7seconds Above high normal [id number] 10 - 13.5 HHCCT MCH RBC Qn Auto 31.7pg Above high normal [id number] 27 - 31 H[facility]CT PMV Bld Auto 10.4fL Normal [id number] 7.5 - 12.[address] RDW RBC Auto-Rto 13.2% Normal [id number] 11.5 - 14. 5 HHCCT Hct VFr Bld Auto 37.1% Below low normal [id number] 39 - 54 H[facility]CT Platelet num Bld Auto 153Thou/uL Normal [id number] 150 - 450 HHCCT MCHC RBC Auto-mCnc 32.6g/dL Normal [id number] 30 - 36 HHCCT MCV RBC Auto 97fL Normal [id number] 80 - 100 HHCC T WBC num Bld Auto 5.8Thou/uL Normal [id number] 4 - 11 HHCCT RBC num Bld Auto 3.82Mil/uL Below low normal [id number] 4. 5 - 6.2 HHCCT Hgb Bld-mCnc 12.1g/dL Below low normal [id number] 13 - 17 .7 HHCCT Anticoagulant WARFARIN (COUMADIN) Normal [id number] HHCCT Magnesium SerPl-mCnc 1.8mg/dL Normal [id number] 1.6 - 2.7 HHCCT Chloride SerPl-sCnc 103mmol/L Normal [id number] 98 - 10 7 HHCCT Glucose SerPl-mCnc 151mg/dL Above high normal [id number] 65 - 99 HHCCT GFR/BSA.pred SerPlBld [id number]-[id number]-VsUEvb 55 Below low normal [id number] 59 - HHCCT Creat SerPl-mCnc 1.4mg/dL Above high normal [id number] 0. 5 - 1.3 HHCCT BUN/Creat SerPl 11Ratio Normal [id number] 10 - 25 H HCCT Anion Gap Bld-sCnc 13 Normal [id number] 7 - 17 HHCCT Calcium SerPl-mCnc 9mg/dL Normal [id number] 8.7 - 10 .5 HHCCT CO2 SerPl-sCnc 23mmol/L Normal [id number] 22 - 33 HH CCT BUN SerPl-mCnc 15mg/dL Normal [id number] 8 - 21 HH CCT Sodium SerPl-sCnc 139mmol/L Normal [id number] 136 - 145 HHCCT Potassium SerPl-sCnc 4.3mmol/L Normal [id number] 3.4 - 5.3 HHCCT Phosphate SerPl-mCnc 3mg/dL Normal [id number] 2.7 - 4.5 HHCCT INR PPP 2.4 Normal [id number] HHCCT Prothrombin time 27.3seconds Above high normal [id number] 10 - 13.5 HHCCT MCH RBC Qn Auto 31.6pg Above high normal [id number] 27 - 31 H[facility]CT PMV Bld Auto 10.2fL Normal [id number] 7.5 - 12.[address] RDW RBC Auto-Rto 13.2% Normal [id number] 11.5 - 14. 5 HHCCT Hct VFr Bld Auto 38.4% Below low normal [id number] 39 - 54 H[facility]CT Platelet num Bld Auto 168Thou/uL Normal [id number] 150 - 450 HHCCT MCHC RBC Auto-mCnc 32g/dL Normal [id number] 30 - 36 HHCCT MCV RBC Auto 99fL Normal [id number] 80 - 100 HHCC T WBC num Bld Auto 8.3Thou/uL Normal [id number] 4 - 11 HHCCT RBC num Bld Auto 3.89Mil/uL Below low normal [id number] 4. 5 - 6.2 HHCCT Hgb Bld-mCnc 12.3g/dL Below low normal [id number] 13 - 17 .7 HHCCT Anticoagulant WARFARIN (COUMADIN) Normal [id number] HHCCT INR PPP 1.2 Normal [id number] HHCCT Prothrombin time 13.7seconds Above high normal [id number] 10 - 13.5 HHCCT Phosphate SerPl-mCnc 2.7mg/dL Normal [id number] 2.7 - 4.5 HHCCT Magnesium SerPl-mCnc 1.8mg/dL Normal [id number] 1.6 - 2.7 HHCCT Chloride SerPl-sCnc 107mmol/L Normal [id number] 98 - 10 7 HHCCT Glucose SerPl-mCnc 123mg/dL Above high normal [id number] 65 - 99 HHCCT GFR/BSA.pred SerPlBld [id number] 61 Normal [id number] 59 - HHCCT Creat SerPl-mCnc 1.3mg/dL Normal [id number] 0.5 - 1.3 HHCCT BUN/Creat SerPl 15Ratio Normal [id number] 10 - 25 H HCCT Anion Gap Bld-sCnc 13 Normal [id number] 7 - 17 HHCCT Calcium SerPl-mCnc 8.9mg/dL Normal [id number] 8.7 - 10 .5 HHCCT CO2 SerPl-sCnc 19mmol/L Below low normal [id number] 22 - 33 HHCCT BUN SerPl-mCnc 19mg/dL Normal [id number] 8 - 21 HH CCT Sodium SerPl-sCnc 139mmol/L Normal [id number] 136 - 145 HHCCT Potassium SerPl-sCnc 3.9mmol/L Normal [id number] 3.4 - 5.3 HHCCT MCH RBC Qn Auto 31.3pg Above high normal [id number] 27 - 31 HHCCT PMV Bld Auto 10fL Normal [id number] 7.5 - 12.[address] RDW RBC Auto-Rto 13.2% Normal [id number] 11.5 - 14. 5 HHCCT Hct VFr Bld Auto 37.6% Below low normal [id number] 39 - 54 H[facility]CT Platelet num Bld Auto 137Thou/uL Below low normal [id number] 150 - 450 HHCCT MCHC RBC Auto-mCnc 32.4g/dL Normal [id number] 30 - 36 HHCCT MCV RBC Auto 96fL Normal [id number] 80 - 100 HHCC T WBC num Bld Auto 7.8Thou/uL Normal [id number] 4 - 11 HHCCT RBC num Bld Auto 3.9Mil/uL Below low normal [id number] 4.5 - 6.2 HHCCT Hgb Bld-mCnc 12.2g/dL Below low normal [id number] 13 - 17 .7 HHCCT Anticoagulant WARFARIN (COUMADIN) Normal [id number] HHCCT Chloride SerPl-sCnc 107mmol/L Normal [id number] 98 - 10 7 HHCCT Glucose SerPl-mCnc 127mg/dL Above high normal [id number] 65 - 99 HHCCT GFR/BSA.pred SerPlBld SPC-IGP-UhLWpp 61 Normal [id number] 59 - HHCCT Creat SerPl-mCnc 1.3mg/dL Normal [id number] 0.5 - 1.3 HHCCT BUN/Creat SerPl 14Ratio Normal [id number] 10 - 25 H HCCT Anion Gap Bld-sCnc 16 Normal [id number] 7 - 17 HHCCT Calcium SerPl-mCnc 9.1mg/dL Normal [id number] 8.7 - 10 .5 HHCCT CO2 SerPl-sCnc 22mmol/L Normal [id number] 22 - 33 HH CCT BUN SerPl-mCnc 18mg/dL Normal [id number] 8 - 21 HH CCT Sodium SerPl-sCnc 145mmol/L Normal [id number] 136 - 145 HHCCT Potassium SerPl-sCnc 3.6mmol/L Normal [id number] 3.4 - 5.3 HHCCT Magnesium SerPl-mCnc 2mg/dL Normal [id number] 1.6 - 2.7 HHCCT Phosphate SerPl-mCnc 2.9mg/dL Normal [id number] 2.7 - 4.5 HHCCT MCH RBC Qn Auto 31.5pg Above high normal [id number] 27 - 31 HHCCT PMV Bld Auto 9.9fL Normal [id number] 7.5 - 12.[address] RDW RBC Auto-Rto 13.2% Normal [id number] 11.5 - 14. 5 HHCCT Hct VFr Bld Auto 40.7% Normal [id number] 39 - 54 H[facility]CT Platelet num Bld Auto 163Thou/uL Normal [id number] 150 - 450 HHCCT MCHC RBC Auto-mCnc 32.7g/dL Normal [id number] 30 - 36 HHCCT MCV RBC Auto 96fL Normal [id number] 80 - 100 HHCC T WBC num Bld Auto 9.9Thou/uL Normal [id number] 4 - 11 HHCCT RBC num Bld Auto 4.22Mil/uL Below low normal [id number] 4. 5 - 6.2 HHCCT Hgb Bld-mCnc 13.3g/dL Normal [id number] 13 - 17.7 HHCC T INR PPP 1.1 Normal [id number] HHCCT Prothrombin time 12.5seconds Normal [id number] 10 - 13. 5 HHCCT Anticoagulant WARFARIN (COUMADIN) Normal [id number] HHCCT Magnesium SerPl-mCnc 2.3mg/dL Normal [id number] 1.6 - 2.7 HHCCT Chloride SerPl-sCnc 111mmol/L Above high normal [id number] 98 - 107 HHCCT Glucose SerPl-mCnc 108mg/dL Above high normal [id number] 65 - 99 HHCCT GFR/BSA.pred SerPlBld QIN-QWZ-DkWBmn 83 Normal [id number] 59 - HHCCT Creat SerPl-mCnc 1mg/dL Normal [id number] 0.5 - 1.3 HHCCT BUN/Creat SerPl 15Ratio Normal [id number] 10 - 25 H HCCT Anion Gap Bld-sCnc 12 Normal [id number] 7 - 17 HHCCT Calcium SerPl-mCnc 8.3mg/dL Below low normal [id number] 8 .7 - 10.5 HHCCT CO2 SerPl-sCnc 18mmol/L Below low normal [id number] 22 - 33 HHCCT BUN SerPl-mCnc 15mg/dL Normal [id number] 8 - 21 HH CCT Sodium SerPl-sCnc 141mmol/L Normal [id number] 136 - 145 HHCCT Potassium SerPl-sCnc 3.9mmol/L Normal [id number] 3.4 - 5.3 HHCCT Phosphate SerPl-mCnc 2.5mg/dL Below low normal [id number] 2.7 - 4.5 HHCCT MCH RBC Qn Auto 31.8pg Above high normal [id number] 27 - 31 HHCCT PMV Bld Auto 9.7fL Normal [id number] 7.5 - 12.[address] RDW RBC Auto-Rto 13.5% Normal [id number] 11.5 - 14. 5 HHCCT Hct VFr Bld Auto 33.7% Below low normal [id number] 39 - 54 HHCCT Platelet num Bld Auto 119Thou/uL Below low normal [id number] 150 - 450 HHCCT MCHC RBC Auto-mCnc 32.6g/dL Normal [id number] 30 - 36 HHCCT MCV RBC Auto 97fL Normal [id number] 80 - 100 HHCC T WBC num Bld Auto 9.5Thou/uL Normal [id number] 4 - 11 HHCCT RBC num Bld Auto 3.46Mil/uL Below low normal [id number] 4. 5 - 6.2 HHCCT Hgb Bld-mCnc 11g/dL Below low normal [id number] 13 - 17 .7 HHCCT Troponin T SerPl-mCnc 211ng/L Critically high [id number] - 23 HHCCT Delta 53 Above high normal [id number] - 3 HHCCT Lactate SerPl-sCnc 1.7mmol/L Normal [id number] 0.5 - 1. 9 HHCCT Magnesium SerPl-mCnc 1.7mg/dL Normal [id number] 1.6 - 2.7 HHCCT Troponin T SerPl-mCnc 302ng/L Critically high [id number] - 23 HHCCT Delta 38 Above high normal [id number] - 3 HHCCT Chloride SerPl-sCnc 107mmol/L Normal [id number] 98 - 10 7 HHCCT Glucose SerPl-mCnc 114mg/dL Above high normal [id number] 65 - 99 HHCCT GFR/BSA.pred SerPlBld [id number]-BEN-DfZOee 74 Normal [id number] 59 - HHCCT Creat SerPl-mCnc 1.1mg/dL Normal [id number] 0.5 - 1.3 HHCCT BUN/Creat SerPl 14Ratio Normal [id number] 10 - 25 H HCCT Anion Gap Bld-sCnc 13 Normal [id number] 7 - 17 HHCCT Calcium SerPl-mCnc 8.9mg/dL Normal [id number] 8.7 - 10 .5 HHCCT CO2 SerPl-sCnc 18mmol/L Below low normal [id number] 22 - 33 HHCCT BUN SerPl-mCnc 15mg/dL Normal [id number] 8 - 21 HH CCT Sodium SerPl-sCnc 138mmol/L Normal [id number] 136 - 145 HHCCT Potassium SerPl-sCnc 3.9mmol/L Normal [id number] 3.4 - 5.3 HHCCT Phosphate SerPl-mCnc 2mg/dL Below low normal [id number] 2.7 - 4.5 HHCCT Lactate SerPl-sCnc 2.6mmol/L Above high normal [id number] 0.5 - 1.9 HHCCT aPTT PPP 60seconds Above high normal [id number] 25 - 36 HHCCT INR PPP 1.2 Normal [id number] HHCCT Prothrombin time 13.5seconds Normal [id number] 10 - 13. 5 HHCCT MCH RBC Qn Auto 31.1pg Above high normal [id number] 27 - 31 HHCCT PMV Bld Auto 9.6fL Normal [id number] 7.5 - 12.[address] RDW RBC Auto-Rto 13.2% Normal [id number] 11.5 - 14. 5 HHCCT Hct VFr Bld Auto 38.4% Below low normal [id number] 39 - 54 HHCCT Platelet num Bld Auto 141Thou/uL Below low normal [id number] 150 - 450 HHCCT MCHC RBC Auto-mCnc 32.3g/dL Normal [id number] 30 - 36 HHCCT MCV RBC Auto 96fL Normal [id number] 80 - 100 HHCC T WBC num Bld Auto 13.9Thou/uL Above high normal [id number] 4 - 11 HHCCT RBC num Bld Auto 3.99Mil/uL Below low normal [id number] 4. 5 - 6.2 HHCCT Hgb Bld-mCnc 12.4g/dL Below low normal [id number] 13 - 17 .7 HHCCT Anticoagulant OTHER AGENT OR UNKNOWN Normal [id number] HHCCT Anticoagulant OTHER AGENT OR UNKNOWN Normal [id number] HHCCT POC Glucose 121mg/dL Above high normal [id number] 65 - 99 HHCCT POC Glucose 96mg/dL Normal [id number] 65 - 99 HHCCT Magnesium SerPl-mCnc 2mg/dL Normal [id number] 1.6 - 2.7 HHCCT pro BNP, N-terminal 180pg/mL Above high normal [id number] - 125 HHCCT Troponin T SerPl-mCnc 264ng/L Critically high [id number] - 23 HHCCT Delta Normal [id number] - 3 HHCCT Globulin Ser Calc-mCnc 3.6g/dL Normal [id number] 1.5 - 3.9 HHCCT ALT SerPl-cCnc 30U/L Normal [id number] 10 - 55 HH CCT AST SerPl-cCnc 28U/L Normal [id number] 10 - 55 HH CCT Albumin SerPl-mCnc 3.9g/dL Normal [id number] 3.4 - 4. 8 HHCCT Bilirub Direct SerPl-mCnc 0.1mg/dL Normal [id number] 0 - 0.2 HHCCT Albumin/Glob SerPl 1.1Ratio Normal [id number] 1 - 3 HHCCT Prot SerPl-mCnc 7.5g/dL Normal [id number] 6.3 - 8.3 H HCCT Bilirub SerPl-mCnc 0.3mg/dL Normal [id number] 0.2 - 1 HHCCT ALP SerPl-cCnc 134U/L Above high normal [id number] 45 - 128 HHCCT Chloride SerPl-sCnc 108mmol/L Above high normal [id number] 98 - 107 HHCCT Glucose SerPl-mCnc 98mg/dL Normal [id number] 65 - 99 HHCCT GFR/BSA.pred SerPlBld ORX-UEN-HlZLjo 74 Normal [id number] 59 - HHCCT Creat SerPl-mCnc 1.1mg/dL Normal [id number] 0.5 - 1.3 HHCCT BUN/Creat SerPl 16Ratio Normal [id number] 10 - 25 H HCCT Anion Gap Bld-sCnc 13 Normal [id number] 7 - 17 HHCCT Calcium SerPl-mCnc 9.6mg/dL Normal [id number] 8.7 - 10 .5 HHCCT CO2 SerPl-sCnc 20mmol/L Below low normal [id number] 22 - 33 HHCCT BUN SerPl-mCnc 18mg/dL Normal [id number] 8 - 21 HH CCT Sodium SerPl-sCnc 141mmol/L Normal [id number] 136 - 145 HHCCT Potassium SerPl-sCnc 4.6mmol/L Normal [id number] 3.4 - 5.3 HHCCT Lactate SerPl-sCnc 2.4mmol/L Above high normal [id number] 0.5 - 1.9 HHCCT INR PPP 1.1 Normal [id number] HHCCT Prothrombin time 12.5seconds Normal [id number] 10 - 13. 5 HHCCT Imm Granulocytes/leuk NFr Bld Auto 1.8% Normal [id number] HHCCT Lymphocytes/leuk NFr Bld Auto 14.7% Normal [id number] HHCCT PMV Bld Auto 9.8fL Normal [id number] 7.5 - 12.[address] Monocytes num Bld Auto 0.79Thou/uL Normal [id number] 0.2 - 1.5 HHCCT Hct VFr Bld Auto 41.7% Normal [id number] 39 - 54 HHCCT Neutrophils num Bld Auto 9.6Thou/uL Above high normal [id number] 2 - 7.5 HHCCT Neutrophils/leuk NFr Bld Auto 76.5% Normal [id number] HHCCT Basophils/leuk NFr Bld Auto 0.2% Normal [id number] HHCCT Basophils num Bld Auto 0.02Thou/uL Normal [id number] 0 - 0.2 [facility] Monocytes/leuk NFr Bld Auto 6.3% Normal [id number] [facility] Eosinophil num Bld Auto 0.06Thou/uL Normal [id number] 0 - 0.7 [facility] MCH RBC Qn Auto 31.5pg Above high normal [id number] 27 - 31 [facility] Eosinophil/leuk NFr Bld Auto 0.5% Normal [id number] [facility] Imm Granulocytes num Bld Auto 0.22Thou/uL Above high normal [id number] 0 - 0.1 [facility] RDW RBC Auto-Rto 13.2% Normal [id number] 11.5 - 14. 5 [facility] Platelet num Bld Auto 144Thou/uL Below low normal [id number] 150 - 450 [facility] MCHC RBC Auto-mCnc 32.6g/dL Normal [id number] 30 - 36 [facility] MCV RBC Auto 97fL Normal [id number] 80 - 100 HH T WBC num Bld Auto 12.5Thou/uL Above high normal [id number] 4 - 11 [facility] RBC num Bld Auto 4.32Mil/uL Below low normal [id number] 4. 5 - 6.2 [facility] Hgb Bld-mCnc 13.6g/dL Normal [id number] 13 - 17.7 HH T Lymphocytes num Bld Auto 1.84Thou/uL Normal [id number] 1.5 - 4.5 [facility] Anticoagulant NO ANTI COAGULANT MEDS Normal [id number] [facility]
--- OUTSIDE RECORDS SUMMARY | 2024-04-03 12:12 | XMS_ITS | Clinical Summary ---
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 02/15/2024 Active DULoxetine (CYMBALTA) 60 MG capsule Take 1 capsule (60 mg total) by mouth nightly. 02/18/2024 Active atorvastatin (LIPITOR) 20 MG tablet Take 1 tablet (20 mg total) by mouth nightly. 12/07/2023 Active PANTOprazole (PROTONIX) 40 MG EC tablet Take 1 tablet (40 mg total) by mouth 2 times a day. 10/16/2023 Active topiramate (TOPAMAX) 25 MG tablet Take 1 tablet (25 mg total) by mouth 2 (two) times a day. 07/31/2023 Active levothyroxine (SYNTHROID, LEVOTHROID) 50 MCG tablet Take 1 tablet (50 mcg total) by mouth daily on an empty stomach. ONLY Sunday through Sunday10/27/2023 Active cyclobenzaprine (FLEXERIL) 10 MG tablet Take 1 tablet (10 mg total) by mouth nightly as needed for muscle spasms. Active gabapentin (NEURONTIN) 300 MG capsule Take 1 capsule (300 mg total) by mouth nightly. 07/16/2023 Active carBAMazepine (TEGretol) 200 MG tablet Take 2 tablets (400 mg total) by mouth nightly. 02/15/2024 Active Ascorbic Acid (vitamin C) 1000 MG tablet Take 1 tablet (1,000 mg total) by mouth daily. Active D-MANNOSE PO Take by mouth. Active metoPROLOL TARTRATE (LOPRESSOR) 25 MG tabletIndications:Acu te saddle pulmonary embolism without acute cor pulmonale (HCC) Take 1 tablet (25 mg total) by mouth 2 (two) times a day. 60 tablet 03/04/2024 Active warfarin (COUMADIN) 5 MG tabletIndications:Acu te saddle pulmonary embolism without acute cor pulmonale (HCC) Take 1 tablet (5 mg total) by mouth daily at the same time. 7 tablet 03/04/2024 Active Active Problems Problem Noted Date Diagnosed Date Saddle embolus of pulmonary artery without acute cor pulmonale 02/28/2024 Encounters Date Type Department Care Team Description 02/28/2024 6:46 PM EST - 02/28/2024 8:20 PM EST Surgery [facility] Heart & Vascular [place] [facility] - Cardiac Catheterization Laboratory [address] [place] [phone] Jerry Plata MD ARTERIOGRAPHY PULMONARY SELECT-BILAT 02/28/2024 4:25 PM EST Ancillary Procedure [facility] Radiology [address] [place] [phone] Provider, File Room 02/28/2024 4:20 PM EST Ancillary Procedure [facility] Radiology [address] [place] [phone] Provider, File Room 02/28/2024 4:20 PM EST Ancillary Procedure [facility] Radiology [address] [place] [phone] Provider, File Room 02/28/2024 3:53 PM EST - 03/04/2024 5:12 PM EST Hospital Encounter [facility] [address] [place] [phone] Sotero Headley MD Schreyer, Evan K, MD Pokhrel, Kamal, MD Shah, Nirali, MD Pulmonary embolism (HCC) (Primary Dx); Acute saddle pulmonary embolism without acute cor pulmonale (HCC) Discharge Disposition: Home or Self Care 02/28/2024 Travel from Last 3 Months Social History Tobacco Use Types Packs/Day Years Used Date Smoking Tobacco: Never Passive Smoke Exposure: Never Smokeless Tobacco: Never [facility] Utilities Answer Date Recorded In the past 12 months has th e electric, gas, oil, or water company threatened to shut off services in your home? No 02/29/2024 AUDIT-C Answer Date Recorded Q1: How often do you have a drink containing alcohol? Never 02/28/2024 Q2: How many drinks containi ng alcohol do you have on a typical day when you are drinking? Patient does not drink Q3: How often do you have si x or more drinks on one occasion? Never 02/28/2024 Overall Financial Resource Strain (CARDIA) Answe r Date Recorded How hard is it for you to pa y for the very basics like food, housing, medical care, and heating? Not very hard 02/29/2024 Hunger Vital Sign Answer Date Recorded Within the past 12 months, y ou worried that your food would run out before you got the money to buy more. Never true 02/28/19 25 Within the past 12 months, t he food you bought just didn't last and you didn't have money to get more. Never true 02/29/2024 PRAPARE - Transportation Answer Date Re corded In the past 12 months, has l ack of transportation kept you from medical appointments or from getting medications? No 02/12 In the past 12 months, has l ack of transportation kept you from meetings, work, or from getting things needed for daily living? No 02/29/2024 Housing Stability Vital Sign Answer Anselmo e Recorded In the last 12 months, was t here a time when you were not able to pay the mortgage or rent on time? No 02/29/2024 In the past 12 months, how m any times have you moved where you were living? 0 02/29/2024 At any time in the past 12 m [facility], were you homeless or living in a [facility] (including now)? No 02/29/2024 Sex and Gender Information Value Date Recorded Sex Assigned at Male 02/28/2024 4:16 PM EST Gender Identity Male 02/28/2024 4:16 PM EST Sexual Orientation Heterosexual (straight) 02/27 4:16 PM EST Last Filed Vital Signs Vital Sign Reading Time Taken Comments Blood Pressure 122/60 03/04/2024 9:30 AM EST Pulse 82 03/04/2024 9:30 AM EST Temperature 36.2 ??C (97.2 ??F) 03/04/2024 5:00 AM ES T Respiratory Rate 18 03/04/2024 5:00 AM EST Oxygen Saturation 98% 03/04/2024 5:00 AM EST Inhaled Oxygen Concentration - - Weight 83.5 kg (184 lb 1.4 oz) 03/03/2024 3:17 A M EST Height 172.7 cm (5' 7.99 ) 02/29/2024 4:00 AM ES T Body Mass Index 28 02/29/2024 4:00 AM EST Plan of Treatment Health Maintenance Due Date Last Done Comments Hepatitis C Virus Screening 1955 DTaP/Tdap/Td Vaccines (1 - Tdap) 1976 Pneumococcal Vaccines 50+ (1 of 2 - PCV) 1976 Colonoscopy 2002 Zoster (Shingles) Vaccine (1 of 2) 04/24/2007 Influenza Vaccine 09/13/2023 COVID-19 Vaccine (1 - 2023-2 5 season) 2023 RSV Vaccine 60 years and old er and Patients (1 - 1-dose 75+ series) 2032 Hepatitis B Vaccines Aged Out No long er eligible based on patient's age to complete this topic Procedures Procedure Name Priority Date/Time Associated Diagnosis Comments BASIC METABOLIC PANEL Routine 03/04/2024 12:51 PM EST PROBNP, N-TERMINAL Routine 03/04/2024 5: 56 AM EST PROTIME-INR Routine 03/04/2024 5:56 AM EST PHOSPHORUS Routine 03/04/2024 5:56 AM EST MAGNESIUM Routine 03/04/2024 5:56 AM EST BASIC METABOLIC PANEL Routine 03/04/2024 5:56 AM EST COMPLETE BLOOD COUNT, WITHOUT DIFFERENTIAL Routine 03/04/2024 5:56 AM EST PROTIME-INR Routine 03/03/2024 8:11 AM EST PHOSPHORUS Routine 03/03/2024 8:11 AM EST MAGNESIUM Routine 03/03/2024 8:11 AM EST BASIC METABOLIC PANEL Routine 03/03/2024 8:11 AM EST COMPLETE BLOOD COUNT, WITHOUT DIFFERENTIAL Routine 03/03/2024 8:11 AM EST PROTIME-INR Routine 03/02/2024 7:24 AM EST PHOSPHORUS Routine 03/02/2024 7:24 AM EST MAGNESIUM Routine 03/02/2024 7:24 AM EST BASIC METABOLIC PANEL Routine 03/02/2024 7:24 AM EST COMPLETE BLOOD COUNT, WITHOUT DIFFERENTIAL Routine 03/02/2024 7:24 AM EST ECHOCARDIOGRAM (TTE) COMPREHENSIVE (CONTRAST PRN) Routine 03/01/2024 2:41 PM EST PROTIME-INR Routine 03/01/2024 8:37 AM EST PHOSPHORUS Routine 03/01/2024 8:37 AM EST MAGNESIUM Routine 03/01/2024 8:37 AM EST BASIC METABOLIC PANEL Routine 03/01/2024 8:37 AM EST COMPLETE BLOOD COUNT, WITHOUT DIFFERENTIAL Routine 03/01/2024 8:37 AM EST VAS VENOUS DUPLEX LEG (DVT)-BILATERAL Routine 02/29/2024 4:31 PM EST PHOSPHORUS Routine 02/29/2024 4:44 AM EST MAGNESIUM Routine 02/29/2024 4:44 AM EST BASIC METABOLIC PANEL Routine 02/29/2024 4:44 AM EST COMPLETE BLOOD COUNT, WITHOUT DIFFERENTIAL Routine 02/29/2024 4:44 AM EST LACTIC ACID, PLASMA Routine 02/29/2024 1 :29 AM EST HIGH SENSITIVITY TROPONIN T CARD 02/29/2024 1:29 AM EST PHOSPHORUS Routine 02/28/2024 9:13 PM EST MAGNESIUM Routine 02/28/2024 9:13 PM EST LACTIC ACID, PLASMA Routine 02/28/2024 9 :13 PM EST PARTIAL THROMBOPLASTIN TIME (PTT) Routine 02/28/2024 9:13 PM EST PROTIME-INR Routine 02/28/2024 9:13 PM EST HIGH SENSITIVITY TROPONIN T CARD 02/28/2024 9:13 PM EST BASIC METABOLIC PANEL Routine 02/28/2024 9:13 PM EST COMPLETE BLOOD COUNT, WITHOUT DIFFERENTIAL Routine 02/28/2024 9:13 PM EST ECG 12-LEAD Routine 02/28/2024 8:52 PM EST POCT GLUCOSE, FINGERSTICK Routine 02/28/2024 8:47 PM EST CARDIAC CATHETERIZATION Routine 02/27/19 25 7:21 PM EST CARDIAC CATHETERIZATION Routine 02/27/19 25 7:21 PM EST ENDOVASCULAR PROCEDURE Routine 7:21 PM EST ENDOVASCULAR PROCEDURE Routine 7:21 PM EST POCT O2 SATURATION (AVOX) Routine 02/28/2024 7:13 PM EST POCT O2 SATURATION (AVOX) Routine 02/28/2024 6:37 PM EST ERROL ARCHIVE FOR REFERENCE ONLY CT Routine 02/28/2024 4:25 PM EST ERROL ARCHIVE FOR REFERENCE ONLY CR Routine 02/28/2024 4:20 PM EST ERROL ARCHIVE FOR REFERENCE ONLY CT Routine 02/28/2024 4:20 PM EST ECG 12-LEAD STAT 02/28/2024 4:14 PM EST PROTIME-INR STAT 02/28/2024 4:08 PM EST PROBNP, N-TERMINAL STAT 02/28/2024 4: 08 PM EST HIGH SENSITIVITY TROPONIN T CARD 02/28/2024 4:08 PM EST MAGNESIUM STAT 02/28/2024 4:08 PM EST HEPATIC FUNCTION PANEL STAT 4:08 PM EST BASIC METABOLIC PANEL STAT 02/28/2024 4:08 PM EST COMPLETE BLOOD COUNT, WITH DIFFERENTIAL STAT 02/28/2024 4:08 PM EST POCT GLUCOSE, FINGERSTICK Routine 02/28/2024 4:07 PM EST LACTIC ACID, PLASMA STAT 02/28/2024 3 :58 PM EST from Last 3 Months Results * Basic Metabolic Panel (Routine) (03/04/2024 12:51 PM EST) Only the most recent of8 resultswithin the time period is included. Pathologist [facility] Glucose 92 65 - 99 mg/dL 03/04/2024 2:38 PM [facility] Comment:Fasting: <100 mg/dL, Non-Fasting: <200 mg/dL (ADA 2004) Blood Urea Nitrogen (BUN) 16 8 - 21 mg/dL 03/04/2024 2:38 PM [facility] Creatinine 1.3 0.5 - 1.3 mg/dL 03/04/2024 2:38 PM [facility] eGFR 61 >59 03/04/2024 2:38 PM [facility] Comment:CKD-EPI (2020) in mL /min/1.73 sq meters. Sodium 140 136 - 145 mmol/L 03/04/2024 2:38 PM [facility] Potassium 4.6 3.4 - 5.3 mmol/L 03/04/2024 2:38 PM [facility] Chloride 102 98 - 107 mmol/L 03/04/2024 2:38 PM [facility] CO2 25 22 - 33 mmol/L 03/04/2024 2:38 PM [facility] Anion Gap 13 7 - 17 03/04/2024 2:38 PM [facility] Calcium 9.1 8.7 - 10.5 mg/dL 03/04/2024 2:38 PM [facility] BUN/Creatinine Ratio 12 10.0 - 25.0 Ratio 03/04/2024 2:38 PM [facility] Blood (Plasma/Serum) 03/04/2024 12:51 PM EST 03/04/2024 2:01 PM EST Mariah Messer MD [place] [address], [place] [address] * (ABNORMAL) proBNP, N-terminal (03/04/2024 5:56 AM EST) Only the most recent of2 resultswithin the time period is included. Pathologist [facility] proBNP, N-terminal 296(H) <125 pg/mL 03/04/2024 9:02 AM EST [facility] Plasma specimen / Unknown 03/04/2024 5:56 AM EST 03/04/2024 6:30 AM EST Mariah Messer MD LAB BLOOD ORDERABLES Performing Organization Address City/[facility] [place] [address], [place] [address] * (ABNORMAL) Protime-INR (03/04/2024 5:56 AM EST) Only the most recent of6 resultswithin the time period is included. [facility] Anticoagulant WARFARIN (COUMADIN) 03/03/2024 11:00 PM EST Prothrombin Time (PT) 27.7(H) 10.0 - 13.5 seconds 03/04/2024 6:43 AM [facility] INR 2.4 03/04/2024 6:43 AM [facility] Comment:INR Therapeutic Rang es: Standard dose anticoagulant 2.0 to 3.0, High dose anticoagulant 2.5-3.5. Blood Plasma specimen / Unknown 03/04/2024 5:56 AM EST 03/04/2024 6:31 AM EST Mariah Messer MD LAB BLOOD ORDERABLES Performing Organization Address City/[facility] [place] [address], [place] [address] * (ABNORMAL) Complete Blood Count, WITHOUT Differential (routine) (03/04/2024 5:56 AM EST) Only the most recent of6 resultswithin the time period is included. [facility] White Blood Cell Count 5.8 4.0 - 11.0 Thou/uL 03/04/2024 6:35 AM [facility] Platelet Count 153 150 - 450 Thou/uL 03/04/2024 6:35 AM [facility] Hemoglobin 12.1(L) 13.0 - 17.7 g/dL 03/04/2024 6:35 AM [facility] Hematocrit 37.1(L) 39.0 - 54.0 % 03/04/2024 6:35 AM [facility] Red Blood Cell Count 3.82(L) 4.50 - 6.20 Mil/uL 03/04/2024 6:35 AM [facility] MCV 97 80 - 100 fL 03/04/2024 6:35 AM [facility] MCH 31.7(H) 27.0 - 31.0 pg 03/04/2024 6:35 AM [facility] MCHC 32.6 30.0 - 36.0 g/dL 03/04/2024 6:35 AM [facility] RDW 13.2 11.5 - 14.5 % 03/04/2024 6:35 AM [facility] MPV 10.4 7.5 - 12.5 fL 03/04/2024 6:35 AM [facility] Blood Blood specimen / Unknown 03/04/2024 5:56 AM EST 03/04/2024 6:30 AM EST Mariah Messer MD [place] [address], [place] [address] * Phosphorus (Routine) (03/04/2024 5:56 AM EST) Only the most recent of6 resultswithin the time period is included. Phosphorus 3.1 2.7 - 4.5 mg/dL 03/04/2024 7:02 AM [facility] Blood (Plasma/Serum) 03/04/2024 5:56 AM EST 03/04/2024 6:30 AM EST Mariah Messer MD [place] [address], [place] [address] * Magnesium (Routine) (03/04/2024 5:56 AM EST) Only the most recent of7 resultswithin the time period is included. Pathologist [facility] Magnesium 2.0 1.6 - 2.7 mg/dL 03/04/2024 7:02 AM EST [facility] Blood (Plasma/Serum) 03/04/2024 5:56 AM EST 03/04/2024 6:30 AM EST Mariah Messer MD LAB BLOOD ORDERABLES Performing Organization Address City/State/[facility] Co de Phone Number [address] [address], [address] [address] * ECHOCARDIOGRAM COMPREHENSIVE (03/01/2024 2:41 PM EST) Pathologist [facility] IVS Mean (F:0.6-0.9, M:0.6-1.0) 1.2 cm IVS (F:0.6-0.9, M:0.6-1.0) 1.2 cm LVIDD Mean (F:3.8-5.2, M:4.2-5.8) 3.2 cm LVIDD (F:3.8-5.2, M:4.2-5.8) 3.2 cm LVIDS (F:2.2-3.5, M:2.5-4.0) 2.1 cm LVIDS (F:2.2-3.5, M:2.5-4.0) 2.1 cm LVOT diameter mean 1.9 cm LVOT diameter 1.9 cm PW Mean (F:0.6-0.9, M:0.6-1.0) 1.2 cm PW (F:0.6-0.9, M:0.6-1.0) 1.2 cm LV Diastolic Volume Mean 54.2 mL LV Diastolic Volume 54 mL LV Systolic Volume Mean 17.2 mL LV Systolic Volume 17 mL LVOT mn grad mean 3.5 mmHg LVOT mn grad 3.5 mmHg LVOT peak aldo mean 1.2 m/s LVOT peak aldo 1.2 m/s LVOT VTI MEAN 17.4 cm LVOT VTI 17.4 cm LV castro vol 3D Mean 42.4 mL LV castro vol 3D 42.4 mL LV sys vol 3D Mean 17.9 mL LV sys vol 3D 17.9 mL RVID d Mean 2.8 cm RVID d 2.8 cm RV Mid Diameter Mean 2.1 cm RV Mid Diameter 2.1 cm RV Free wall pk S' Mean 22.9 cm/s RV Free wall pk S' 22.9 cm/s LA volume Mean 36.9 mL LA volume 36.9 mL RA area Mean 11.8 cm2 RA area 11.8 cm2 RA 2D Volume 28.4 mL AV mean gradient mean 7.2 mmHg AV mean gradient 7.2 mmHg Ao peak aldo mean 1.8 m/s Ao peak aldo 1.8 m/s Ao VTI Mean 23.9 cm Ao VTI 23.9 cm MV Peak A-Wave Mean 100.4 cm/s MV Peak A-Wave 100.4 cm/s E wave decelartion time mean 136 ms E wave decelartion time 136 ms MV Peak E-Wave Mean 64.6 cm/s MV Peak E-Wave 64.6 cm/s Tapse Mean 1.9 cm Tapse 1.9 cm TR Peak Aldo Mean 2.7 m/s TR Peak Aldo 2.7 m/s Ascending aorta mean 3.2 cm Ascending aorta 3.2 cm Sinuses of Valsalva Mean 3.5 cm Sinuses of Valsalva 3.5 cm IVC Expiration Diameter Mean 2.2 cm IVC Expiration Diameter 2.2 cm IVC Inspiration Diameter Mean 0.8 cm IVC Inspiration Diameter 0.8 cm Heart Rate 91 bpm BP Systolic 110 mmHg BP Diastolic 77 mmHg Height 67.00 inches Weight 190.00 lbs TR Peak Gradient 29 mmHg LV Mass Index (F:43-95, M:49-115) 60.4 g/m2 LA Volume Index (16-34) 18.7 mL/m2 LV Diastolic Volume Index (F:29-61, M:35-75) 27.3 mL/m2 LV Systolic Volume Index (F:8-24, M:11-31) 8.6 mL/m2 AV peak gradient 13.0 mmHg LVOT stroke volume 49 mL LVOT area 2.8 cm2 E/A ratio 0.64 AV LVOT peak gradient 5.8 mmHg Dimensionless Index 0.73 SVI 24 mL/m2 AV area by cont VTI 2.1 cm2 Ascending aorta Index 1.6 cm/m2 Sinuses of Valsalva Index 1.8 cm/m2 EF - 3D Echo 58 % Valve area - Index 1.0 cm2/m2 LV mass 119.4 g Prather BP EF (55-75) 69 % IVCPERCENTCOLLAPSE 0.64 % LVOT SI 24.92 mL/m2 LV RWT 0.75 Left Ventricular Cardiac Index 2.3 L/min/m2 Left Ventricular Cardiac Output 4.5 L/min BSA 1.98 m2 LA Volume Index 14.4 mL/m2 Est. RA pres 8 mmHg RVSP 37 mmHg PASP 37.2 mmHg Anatomical Region Laterality Modality Ultrasound Narrative 03/01/2024 4:26 PM EST ?The left ventricle is small. Left ventricular systolic function is normal. The quantitative EF by 2D Prather biplane is 69%. ?The right ventricle is normal in size. Right ventricular systolic function is normal with hypokinesis of the mid free wall. ?There is trace tricuspid regurgitation. The estimated right ventricular systolic pressure is mildly elevated at 37 mmHg. ?There is no previous study for comparison in our system. Technical Details Overall the study quality was adequate. The study was technically difficult due to patient's clinical status and body habitus. Left Ventricle The left ventricle is small. Concentric remodeling of the left ventricle is present. Left ventricular systolic function is normal. The quantitative EF by 2D Prather biplane is 69%. No wall motion abnormalities are present. Diastolic function could not be accurately assessed. Right Ventricle The right ventricle is normal in size. Right ventricular systolic function is normal with hypokinesis of the mid free wall. Left Atrium Left atrial size is normal. The pulmonary veins exhibit systolic dominant flow. Right Atrium Right atrial size is normal. Based on IVC diameter and collapse, right atrial pressure is estimated to be moderately elevated (8 mmHg). Mitral Valve The mitral valve is structurally normal. There is no mitral regurgitation. Tricuspid Valve The tricuspid valve is structurally normal. There is trace tricuspid regurgitation. The estimated right ventricular systolic pressure is mildly elevated at 37 mmHg. Aortic Valve The aortic valve is tricuspid. The aortic valve leaflets are mildly thickened.There is no aortic regurgitation or stenosis. Ascending Aorta The aortic root and ascending aorta are normal in dimension. Pericardium There is a minimal pericardial effusion. Prior Study There is no previous study for comparison in our system. Mariah Messer MD CV ECHO ORDERABLES * VAS VENOUS DUPLEX LEG (DVT)-BILATERAL (02/29/2024 4:31 PM EST) Anatomical Region Laterality Modality Ultrasound 02/29/2024 3:10 PM EST Narrative 03/01/2024 3:36 PM EST Table formatting from the original result was not included. ?? Department: [facility] Patient: [id number] (KAREN GORDON) ?? Patient Location: ..[address] CPT Code: 22602 ICD-9: ?? Referring Physician: EVA MILLER Impression Critical Findings: The report was given to Elpidio Whitaker MD by Julissa Bush/Jenise Rosales RVT at 4:15pm on 02/29/2024. ?? Result: acute thrombus of the right popliteal vein, tibio-peroneal trunk, and peroneal veins Read Back Performed: Yes Right lower extremity venous duplex ultrasound exam demonstrates acute thrombus involving the popliteal vein, tibio-peroneal trunk, and peroneal veins. Diagnosis of acute thrombosis is supported by a low level of echogenicity of the thrombus in the distended vein. The remainder of the deep system is patent. Left lower extremity venous duplex ultrasound exam demonstrates normal Doppler flow with no thrombus seen in jaffe scale. ??Findings are not consistent with the presence of deep vein thrombosis. ?? Indications ? Pulmonary Embolism Other [I26.99]. 68 year old male admitted with PE presents for a venous duplex evaluation. Findings: ?? Right ??Impression ??Phasic ??Compressible Common Femoral Vein ??Normal ??Yes ??Complete Proximal femoral vein ??Normal ?Complete Mid femoral vein ??Normal ?Complete Distal femoral vein ??Normal ?Complete Popliteal ??Acute Partial Thrombus ?Partial Tibeoperoneal Trunk ??Acute Complete Thrombus ?Non-compressible Posterior Tibial Vein ??Normal ?Complete Peroneal ??Acute Complete Thrombus ?Non-compressible GSV Saphenofemoral junction ??Normal ?Complete Left ??Impression ??Phasic ??Compressible Common Femoral Vein ??Normal ??Yes ??Complete Proximal femoral vein ??Normal ?Complete Mid femoral vein ??Normal ?Complete Distal femoral vein ??Normal ?Complete Popliteal ??Normal ?Complete Posterior Tibial Vein ??Normal ?Complete Peroneal ??Normal ?Complete GSV Saphenofemoral junction ??Normal ?Complete ?? Electronically Signed by: Bob Gonzales MD on 2024-03-01 03:36:55 PM End of Report Procedure Note Bob Gonzales MD - 03/01/2024 Department: [facility] Patient: [id number] (KAREN GORDON) Patient Location: ..[address] CPT Code: 41429 ICD-9: Referring Physician: EVA MILLER Impression Critical Findings: The report was given to Elpidio Whitaker MD by Julissa Bush/LESTER Lee at 4:15pm on 02/29/2024. Result: acute thrombus of the right popliteal vein, tibio-peroneal trunk,and peroneal veins Read Back Performed: Yes Right lower extremity venous duplex ultrasound exam demonstrates acutethrombus involving the popliteal vein, tibio-peroneal trunk, and peronealveins. Diagnosis of acute thrombosis is supported by a low level ofechogenicity of the thrombus in the distended vein. The remainder of thedeep system is patent. Left lower extremity venous duplex ultrasound exam demonstrates normalDoppler flow with no thrombus seen in jaffe scale. Findings are notconsistent with the presence of deep vein thrombosis. Indications Pulmonary Embolism Other [I26.99]. 68 year old male admitted with PE presents for a venous duplexevaluation. Findings: Right Impression Phasic Compressible Common Femoral Vein Normal Yes Complete Proximal femoral vein Normal Complete Mid femoral vein Normal Complete Distal femoral vein Normal Complete Popliteal Acute Partial Thrombus Partial Tibeoperoneal Trunk Acute Complete Thrombus Non-compressible Posterior Tibial Vein Normal Complete Peroneal Acute Complete Thrombus Non-compressible GSV Saphenofemoral junction Normal Complete Left Impression Phasic Compressible Common Femoral Vein Normal Yes Complete Proximal femoral vein Normal Complete Mid femoral vein Normal Complete Distal femoral vein Normal Complete Popliteal Normal Complete Posterior Tibial Vein Normal Complete Peroneal Normal Complete GSV Saphenofemoral junction Normal Complete Electronically Signed by: Bob Gonzales MD on 2024-03-01 03:36:55 PM End of Report Mariah Messer MD VASCULAR LAB ORDERAB LES * (ABNORMAL) High Sensitivity Troponin T (Once) (02/29/2024 1:29 AM EST) Only the most recent of3 resultswithin the time period is included. High Sensitivity Troponin T 211(HH) <23 ng/L 02/29/2024 2:45 AM [facility] Comment:Recurring Critical R esult. Previously phoned. Delta (Change) 53(H) <3 02/29/2024 2:45 AM [facility] Comment:Decreased Blood (Plasma/Serum) 02/29/2024 1:29 AM EST 02/29/2024 1:42 AM EST Eva Miller APRN LAB BLOOD ORDERABLE S Performing Organization Address [facility] [place] [address], [place] [address] * Lactic Acid, Plasma (Routine) (02/29/2024 1:29 AM EST) Only the most recent of3 resultswithin the time period is included. Lactic Acid 1.7 0.5 - 1.9 mmol/L 02/29/2024 2:19 AM [facility] Blood Plasma specimen / Unknown 02/29/2024 1:29 AM EST 02/29/2024 1:42 AM EST Eva Miller APRN LAB BLOOD ORDERABLE S [address] [place] [address], [facility] [address] [place] [address] * (ABNORMAL) Partial Thromboplastin Time (PTT) (02/28/2024 9:13 PM EST) Pathologist [facility] Anticoagulant OTHER AGENT OR UNKNOWN 02/28/2024 9:14 PM EST Partial Thromboplastin Time (PTT) 60(H) 25 - 36 seconds 02/28/2024 10:03 PM EST [facility] Blood Plasma specimen / Unknown 02/28/2024 9:13 PM EST 02/28/2024 9:45 PM EST Eva Nelsontomas YUNIEL LAB BLOOD ORDERABLE S Performing Organization Address City/State/[facility] Co de Phone Number [facility] [address] [place] [address], [place] [address] * ECG 12 lead (02/28/2024 8:52 PM EST) Only the most recent of2 resultswithin the time period is included. Systolic BP 122 mmHg EKG [facility] Diastolic BP 74 mmHg EKG [facility] Ventricular rate 98 BPM EKG [facility] Atrial rate 98 BPM EKG [facility] P-R interval 174 ms EKG [facility] QRS duration 88 ms EKG [facility] Q-T interval 366 ms EKG [facility] QTC calculation (Bazett) 467 ms EKG [facility] P axis 57 degrees EKG [facility] R axis 108 degrees EKG [facility] T axis 51 degrees EKG [facility] 02/28/2024 8:52 PM EST Narrative EKG [facility] - 02/29/2024 6:56 AM EST Normal sinus rhythm Rightward axis Borderline ECG When compared with ECG of 28-Feb-2024 16:14, No significant change was found Confirmed by MD John Jordan ([id number]) on 02/29/2024 6:56:35 AM Procedure Note Robert John MD - 02/29/2024 Normal sinus rhythm Rightward axis Borderline ECG When compared with ECG of 28-Feb-2024 16:14, No significant change was found Confirmed by MD Alvaro, Robert ([id number]) on 02/29/2024 6:56:35 AM Elpidio Whitaker MD ECG ORDERABLES Performing Organization Address City/[facility]/ZIP Co de Phone Number EKG [facility] * (ABNORMAL) POCT Glucose, Fingerstick (02/28/2024 8:47 PM EST) Only the most recent of2 resultswithin the time period is included. POC Glucose 121(H) 65 - 99 mg/dL 02/28/2024 8:48 PM EST Blood specimen / Unknown 02/28/2024 8:47 PM EST 02/28/2024 8:48 PM EST Sotero Headley MD POINT OF CARE TEST O RDERABLES Performing Organization Address City/[facility] Co de Phone Number HOSPITAL LAB See Below * ARTERIOGRAPHY PULMONARY SELECT-BILATERAL, THROMBECTOMY ARTERIAL PRIMARY 1ST VESSEL (02/28/2024 7:21PM EST) Anatomical Region Laterality Modality Radiographic Evelyn ging Narrative 02/28/2024 7:59 PM EST Table formatting from the original result was not included. Images from the original result were not included. [facility] [place] [facility] - Cardiac Catheterization Laboratory [facility] [place] [facility] - Cardiac Catheterization Laboratory PATIENT DEMOGRAPHIC INFORMATION Name: Karen Gordon : 1955 68 y.o. Sex: male Gender: male Procedure Date: 02/28/2024 PROCEDURE DETAILS On Site Soil Evaluator: Jerry Plata MD Fellow: MD Alla Gallegos MD Omar Yacob, MBBS Order Detailer(s): none Indications for Procedure: Pulmonary embolism ?? Referring Physician: Charles Fenton PCP: Bonilla Grant MD Procedure(s): Procedures: ??* ARTERIOGRAPHY PULMONARY SELECT-BILAT ??* RIGHT HEART CATH, CORONARY ANGIOGRAM ??* THROMBECTOMY CONCLUSIONS/RECOMMENDATIONS S/p large bore mechanical thrombectomy with removal of significant thrombus Reduction in mean PA pressures from 38 mm Hg to 22 mm Hg Continue therapeutic enoxaparin, anticipate transition to DOAC tomorrow Formal echocardiogram, LE dopplers pending PROCEDURE FINDINGS Pressures Site ?? RA 13 mmHg/9 mmHg (9 mmHg) RV 39 mmHg/21 mmHg 20 mmHg PA Pre Intervention: 53/29 (38) Post Intervention:33 mmHg/14 mmHg (22 mmHg) ?? O2 Sats ? RA 44.1 % PA 48 % ?? AO 98 % Cardiac Output/Resistances: CO = 2.76 L/min ; CI = 1.4 L/min/kg2 QS = 2.76 Tracings available in [employer] log report CLINICAL HISTORY 64-year-old male presents to the hospital shortness of breath found to have intermediate risk pulmonary embolism with risk enhancing features. PROCEDURE Informed consent was obtained; a procedural timeout was performed; the patient was prepped and draped in sterile fashion; Access: Right femoral vein Sheath: 24F [place] Under ultrasound guidance the right femoral vein was accessed with a 7F sheath. The vein was preclosed. A right heart catheterization was performed with a [place] Ritchie Catheter. A pigtail was used to perform selective right and left pulmonary angiography.The right pulmonary artery was selected with a 0.035 J-wire. We then exchanged out the 0.035 for an Amplatz Super stiff wire. We dilated the right femoral vein site and inserted a 24Fr sheath. We then inserted the Flowtreiver 24fr catheter and performed aspiration thrombectomy of the right pulmonary artery. We then used a Flowtriever 16 Curve to aspirate the right upper lobar branch but were unsuccessful. We then accessed the left lower pulmonary artery. We inserted the T24 into the left main pulmonary artery. We performed aspiration. We then inserted the T20 Curve into the left lower lobar artery and performed additional aspiration. Blood was returned to the patient after each aspiration. Repeat pulmonary artery and right atrial pressures were measured. The catheters were removed under negative suction. The sheath was removed and the percloses cinched down to achieve hemostasis. Complications: None Anesthesia: The procedure was performed under moderate conscious sedation by an independent trained observer (RN) and supervised by the under signed attending MD. See meds list. Sedation Time: 17 minutes 25 seconds Contrast Used: Med Administrations and Associated Flowsheet Values (last 24 hours) ?? Date/Time Action Medication Dose 02/28/24 192 Given iohexol (OMNIPAQUE) 350 mg/mL injection 120 mL Estimated Blood Loss: 10 mL ?? Verbal Orders and Supervisory Attestation: As the attending physician, I verify I was present throughout the entire procedure and provided physician orders as documented in the specialty electronic documentation system. Furthermore I directly supervised all non physicians providers who assisted me during the procedure and I accept delegation of supervisory responsibility for all post procedure patient care activity related to this patient that I request from a [facility] PA/INTERLOCKER MAINTAINER/fellow/staff member. Jerry Plata MD [facility] [place] 02/28/2024 ??7:34 PM Cardiac Protocol pulmonary hypertension Percutaneous Procedure Cardiovascular Instability: Cardiovascular Instability Type: Ventricular Support Used: Ventricular Support Type: Ventricular Support Timing: Mechanical Support Type: Stress Test Performed: Stress Test Type: Most Recent Stress Test Date: Stress Test Results: Risk/Extent of Ischemia: NYHA HF Class: class IV Arterial Cross Over: Staged PCI?: CAHP Score: Exact CAHP Score: Cardiac Arrest Out of Healthcare Facility: Cardiac Arrest at Transferring Healthcare Facility: Chest Pain Symptom Assessment: atypical angina PCI Indication: other. Indications for Fiberglass Roller Visit: other indications Jerry Plata MD CV ENDOVASCULAR OR DERABLES * CC RIGHT HEART CATH, CORONARY ANGIOGRAM, CC THROMBECTOMY (02/28/2024 7:21 PM EST) Anatomical Region Laterality Modality Radiographic Evelyn ging Narrative 02/28/2024 7:59 PM EST Table formatting from the original result was not included. Images from the original result were not included. [facility] [place] [facility] - Cardiac Catheterization Laboratory [facility] [place] [facility] - Cardiac Catheterization Laboratory PATIENT DEMOGRAPHIC INFORMATION Name: Karen Gordon : 1955 68 y.o. Sex: male Gender: male Procedure Date: 02/28/2024 PROCEDURE DETAILS On Site Soil Evaluator: Jerry Plata MD Fellow: MD Alla Gallegos MD Omar Yacob, MBBS Order Detailer(s): none Indications for Procedure: Pulmonary embolism ?? Referring Physician: Charles Fenton PCP: Bonilla Grant MD Procedure(s): Procedures: ??* ARTERIOGRAPHY PULMONARY SELECT-BILAT ??* RIGHT HEART CATH, CORONARY ANGIOGRAM ??* THROMBECTOMY CONCLUSIONS/RECOMMENDATIONS S/p large bore mechanical thrombectomy with removal of significant thrombus Reduction in mean PA pressures from 38 mm Hg to 22 mm Hg Continue therapeutic enoxaparin, anticipate transition to DOAC tomorrow Formal echocardiogram, LE dopplers pending PROCEDURE FINDINGS Pressures Site ?? RA 13 mmHg/9 mmHg (9 mmHg) RV 39 mmHg/21 mmHg 20 mmHg PA Pre Intervention: 53/29 (38) Post Intervention:33 mmHg/14 mmHg (22 mmHg) ?? O2 Sats ? RA 44.1 % PA 48 % ?? AO 98 % Cardiac Output/Resistances: CO = 2.76 L/min ; CI = 1.4 L/min/kg2 QS = 2.76 Tracings available in [employer] log report CLINICAL HISTORY 64-year-old male presents to the hospital shortness of breath found to have intermediate risk pulmonary embolism with risk enhancing features. PROCEDURE Informed consent was obtained; a procedural timeout was performed; the patient was prepped and draped in sterile fashion; Access: Right femoral vein Sheath: 24F [place] Under ultrasound guidance the right femoral vein was accessed with a 7F sheath. The vein was preclosed. A right heart catheterization was performed with a [place] Ritchie Catheter. A pigtail was used to perform selective right and left pulmonary angiography.The right pulmonary artery was selected with a 0.035 J-wire. We then exchanged out the 0.035 for an Amplatz Super stiff wire. We dilated the right femoral vein site and inserted a 24Fr sheath. We then inserted the Flowtreiver 24fr catheter and performed aspiration thrombectomy of the right pulmonary artery. We then used a Flowtriever 16 Curve to aspirate the right upper lobar branch but were unsuccessful. We then accessed the left lower pulmonary artery. We inserted the T24 into the left main pulmonary artery. We performed aspiration. We then inserted the T20 Curve into the left lower lobar artery and performed additional aspiration. Blood was returned to the patient after each aspiration. Repeat pulmonary artery and right atrial pressures were measured. The catheters were removed under negative suction. The sheath was removed and the percloses cinched down to achieve hemostasis. Complications: None Anesthesia: The procedure was performed under moderate conscious sedation by an independent trained observer (RN) and supervised by the under signed attending MD. See meds list. Sedation Time: 17 minutes 25 seconds Contrast Used: Med Administrations and Associated Flowsheet Values (last 24 hours) ?? Date/Time Action Medication Dose 02/28/24 192 Given iohexol (OMNIPAQUE) 350 mg/mL injection 120 mL Estimated Blood Loss: 10 mL ?? Verbal Orders and Supervisory Attestation: As the attending physician, I verify I was present throughout the entire procedure and provided physician orders as documented in the specialty electronic documentation system. Furthermore I directly supervised all non physicians providers who assisted me during the procedure and I accept delegation of supervisory responsibility for all post procedure patient care activity related to this patient that I request from a [facility] PA/INTERLOCKER MAINTAINER/fellow/staff member. Jrery Plata MD [facility] [place] 02/28/2024 ??7:34 PM Cardiac Protocol pulmonary hypertension Percutaneous Procedure Cardiovascular Instability: Cardiovascular Instability Type: Ventricular Support Used: Ventricular Support Type: Ventricular Support Timing: Mechanical Support Type: Stress Test Performed: Stress Test Type: Most Recent Stress Test Date: Stress Test Results: Risk/Extent of Ischemia: NYHA HF Class: class IV Arterial Cross Over: Staged PCI?: CAHP Score: Exact CAHP Score: Cardiac Arrest Out of Healthcare Facility: Cardiac Arrest at Transferring Healthcare Facility: Chest Pain Symptom Assessment: atypical angina PCI Indication: other. Indications for Fiberglass Roller Visit: other indications Jerry Plata MD CV CARDIAC CATH OR DERABLES * (ABNORMAL) POCT O2 Saturation (AVOX) (02/28/2024 7:13 PM EST) Only the most recent of2 resultswithin the time period is included. PA 48(A) 60 - 75 % Lot Number [id number] Section [place] Pass Blood 02/28/2024 7:13 PM EST Jerry Plata MD POINT OF CARE TEST ORDERABLES * ERROL Archive for reference only CT (02/28/2024 4:25 PM EST) Only the most recent of2 resultswithin the time period is included. Narrative SYSTEMGENERATED, DOCUMENTATION - 02/28/2024 4:19 PM EST This order has been auto-finalized and does not contain a result. Mariah Messer MD IMG DIGITIZE FILMS * ERROL Archive for reference only CR (02/28/2024 4:20 PM EST) Narrative SYSTEMGENERATED, DOCUMENTATION - 02/28/2024 4:19 PM EST This order has been auto-finalized and does not contain a result. Mariah Messer MD IMG DIGITIZE FILMS * (ABNORMAL) Complete Blood Count, with Differential (02/28/2024 4:08 PM EST) White Blood Cell Count 12.5(H) 4.0 - 11.0 Thou/uL 02/28/2024 4:36 PM [facility] Platelet Count 144(L) 150 - 450 Thou/uL 02/28/2024 4:36 PM [facility] Hemoglobin 13.6 13.0 - 17.7 g/dL 02/28/2024 4:36 PM [facility] Hematocrit 41.7 39.0 - 54.0 % 02/28/2024 4:36 PM [facility] Red Blood Cell Count 4.32(L) 4.50 - 6.20 Mil/uL 02/28/2024 4:36 PM [facility] MCV 97 80 - 100 fL 02/28/2024 4:36 PM [facility] MCH 31.5(H) 27.0 - 31.0 pg 02/28/2024 4:36 PM [facility] MCHC 32.6 30.0 - 36.0 g/dL 02/28/2024 4:36 PM [facility] RDW 13.2 11.5 - 14.5 % 02/28/2024 4:36 PM [facility] MPV 9.8 7.5 - 12.5 fL 02/28/2024 4:36 PM [facility] Neutrophils Auto 76.5 % 02/27/19 25 4:36 PM [facility] Immature Granulocytes 1.8 % 02/28/2024 4:36 PM [facility] Lymphocytes Auto 14.7 % 02/27/19 4:36 PM [facility] Monocytes Auto 6.3 % 02/28/2024 4:36 PM [facility] Eosinophils Auto 0.5 % 02/27/19 4:36 PM [facility] Basophils Auto 0.2 % 02/28/2024 4:36 PM [facility] Abs Neutrophils Auto 9.60(H) 2.00 - 7.50 Thou/uL 02/28/2024 4:36 PM [facility] Abs Immature Granulocytes 0.22(H) 0.00 - 0.10 Thou/uL 02/28/2024 4:36 PM [facility] Abs Lymphocytes Auto 1.84 1.50 - 4.50 Thou/uL 02/28/2024 4:36 PM [facility] Abs Monocytes Auto 0.79 0.20 - 1.50 Thou/uL 02/28/2024 4:36 PM [facility] Abs Eosinophils Auto 0.06 0.00 - 0.70 Thou/uL 02/28/2024 4:36 PM [facility] Abs Basophils Auto 0.02 0.00 - 0.20 Thou/uL 02/28/2024 4:36 PM [facility] Blood Blood specimen / Unknown 02/28/2024 4:08 PM EST 02/28/2024 4:26 PM EST Sotero Headley MD [place] [address], [place] [address] * (ABNORMAL) Hepatic Function Panel (02/28/2024 4:08 PM EST) Alkaline Phosphatase 134(H) 45 - 128 U/L 02/28/2024 4:58 PM [facility] Aspartate Aminotrans (AST) 28 10 - 55 U/L 02/28/2024 4:58 PM [facility] Alanine Aminotrans (ALT) 30 10 - 55 U/L 02/28/2024 4:58 PM [facility] Bilirubin, Total 0.3 0.2 - 1.0 mg/dL 02/28/2024 4:58 PM [facility] Protein, Total 7.5 6.3 - 8.3 g/dL 02/28/2024 4:58 PM [facility] Albumin 3.9 3.4 - 4.8 g/dL 02/28/2024 4:58 PM [facility] Bilirubin, Direct <0.1 0 - 0.2 mg/dL 02/28/2024 4:58 PM [facility] Globulin 3.6 1.5 - 3.9 g/dL 02/28/2024 4:58 PM [facility] Albumin/Globulin Ratio 1.1 1.0 - 3.0 Ratio 02/28/2024 4:58 PM [facility] Blood (Plasma/Serum) 02/28/2024 4:08 PM EST 02/28/2024 4:26 PM EST Sotero Headley MD LAB BLOOD ORDERABLES [facility] [address] [place] [address], [address] [id number] from Last 3 Months Advance Directives * Full Code (Latest Code Status on File) Date Activated Date Inactivated Comments 02/28/2024 8:48 PM * Full Code Date Activated Date Inactivated Comments 02/28/2024 7:40 PM 02/28/2024 8:48 PM Care Teams Curb And Gutter Laborer Relationship Specialty Start Date End Date Bonilla Grant MD [address] [place] [address] PCP - General Psychiatry, General 02/28/24
--- OUTSIDE RECORDS SUMMARY | 2024-04-03 12:13 | XMS_ITS | Clinical Summary ---
Author Organization [facility] Address [address] [place] [address] Phone Care Team Providers Care Museum Specialist Name Role Phone Bonilla Grant DO Primary Care Provider [phone] Allergies Active Allergy Reactions Criticality Noted Date Comments Other 11/05/2020 Bactrim [Na Qiyxfalo-euepbsezxxclhegw-llixjksmtfc m Oxycontin [Indigotine-oxycodone Hcl] Oxycodone 11/05/2020 Medications acetaminophen (TYLENOL 8 HOUR ORAL) Take by mouth. Active ascorbic acid (VITAMIN C) 500 mg tablet Take 500 mg by mouth daily. Active cholecalciferol, vitamin D3, (VITAMIN D3 ORAL) Take by mouth. Active ibuprofen (IBU-200 ORAL) Take by mouth. Active MELATONIN ORAL Take by mouth. Active carBAMazepine (CARBATROL) 200 mg 12 hr capsule Take 200 mg by mouth 2 times daily. Active DULoxetine (CYMBALTA) [address] capsule Take 60 mg by mouth daily. 90 mg daily Active levothyroxine (SYNTHROID, LEVOTHROID) 75 mcg tablet Take 75 mcg by mouth daily. Active lidocaine (LIDODERM) 5 % patch Place 1 Patch onto the skin every 24 hours. Apply for no more than 12 hours in any 24 hour period. Active pantoprazole (PROTONIX) 40 mg EC tablet Take 40 mg by mouth daily. Active Social History Tobacco Use Types Packs/Day Years Used Date Smoking Tobacco: Never Assessed Sex and Gender Information Value Date Recorded Sex Assigned at Male 03/10/2024 4:29 PM EST Legal Sex Male 9:44 AM EST Gender Identity Male 03/10/2024 4:29 PM EST Sexual Orientation Not on file Plan of Treatment Upcoming Encounters Date Type Department Care Team (Late st Contact Info) Description 04/07/2024 1:00 PM EST Office Visit Hematology Oncology [address] [place] [phone] Ranjana Sandoval MD [address] [place] [address] Health Maintenance Due Date Last Done Comments Pneumococcal Vaccine: 50+ Years (1 of 1 - PCV) 04/24/2007 RSV Immunization Patients 60 + Years Old (1 - Risk 60-74 years 1-dose series) 2017 DTaP,Tdap,and Td Vaccines (2 - Td or Tdap) 07/13/2021 07/14/2011 Cholesterol Screening (Lipid Panel) 01/15/2022 Depression Screening 01/15/2022 Hepatitis C Screening 01/15/2022 Medicare Annual Wellness Visit 01/15/2022 Social Influencers of Health Screening 01/15/2022 Falls Risk Assessment 2022 COVID-19 Vaccine (3 - 2023-2 5 season) 2023 04/05/2020, 03/15/2020 Influenza Vaccine (#1) 2023 Colorectal Cancer Screening: Colonoscopy 03/02/2031 03/02/2021 Zoster Vaccines Completed 05/26/2021, 10/01/2020 HIB Vaccines Aged Out No longer eligi ble based on patient's age to complete this topic HPV Vaccines Aged Out No longer eligi ble based on patient's age to complete this topic Hepatitis A Vaccines Aged Out No long er eligible based on patient's age to complete this topic Hepatitis B Vaccines Aged Out No long er eligible based on patient's age to complete this topic IPV Vaccines Aged Out No longer eligi ble based on patient's age to complete this topic MMR Vaccines Aged Out No longer eligi ble based on patient's age to complete this topic Meningococcal ACWY Vaccine Aged Out N o longer eligible based on patient's age to complete this topic Meningococcal B Vacine Aged Out No lo nger eligible based on patient's age to complete this topic RSV Immunization Patients Under 20 months Aged Out No longer eligible b ased on patient's age to complete this topic Varicella Vaccines Aged Out No longer eligible based on patient's age to complete this topic Procedures Procedure Name Priority Date/Time Associated Diagnosis Comments COLONOSCOPY Routine 03/02/2021 from Last 3 Months or Most Recently Relevant to Health Maintenance Results * Colonoscopy (03/02/2021) Colonoscopy no interpretation abstracted Anatomical Region Laterality Modality Other Historical Provider MD HEALTH MAINTENANCE Final Result from Last 3 Months or Most Recently Relevant to Health Maintenance Insurance BLUE CROSS - [place] MEDICARE ADVANTAGE [place]ICA[place] - [place] Care Teams Museum Specialist Relationship Specialty Start Date End Date Bonilla Grant DO [address] [place] [address] PCP - General Family Medicine 03/10/24
--- OUTSIDE RECORDS SUMMARY | 2024-04-03 12:13 | XMS_ITS | Encounter Summary ---
Author Organization [facility] Address [address] [place] [address] Care Team Providers Care Fur Dry Cleaner Hand Name Role Phone Bonilla Grant MD Primary Care Provider [phone] Reason for Visit * Reason Comments Abnormal Test Result * Auth/Cert Specialty Diagnoses / Procedures Referred By Contac t Referred To Contact Diagnoses 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) PE, Hypoxic acute respiratory failure Procedures N/A Referral ID Status Reason Start Date Expiration Date Visits Re quested Visits Authorized [id number] 1 1 Encounter Details Date Type Department Care Team (Latest Contact Info) Description 02/28/2024 3:53 PM EST - 03/04/2024 5:12 PM [facility] Hospital Encounter CENTER [address] [place] [phone] Sotero Headley MD [address] [place] [phone] Elpidio Whitaker MD [address] [place] [phone] Mariah Messer MD [address] [place] [phone] Mary Paulson MD [address] [place] [id number] Pulmonary embolism (HCC) (Primary Dx); Acute saddle pulmonary embolism without acute cor pulmonale (HCC) Discharge Disposition: Home or Self Care Social History Tobacco Use Types Packs/Day Years Used Date Smoking Tobacco: Never Passive Smoke Exposure: Never Smokeless Tobacco: Never [facility] Utilities Answer Date Recorded In the past [...] any time in the past 12 [facility], were you homeless or living in a residential (including now)? No 02/29/2024 Sex and Gender Information Value Date Recorded Sex Assigned at Male 02/28/2024 4:16 PM EST Gender Identity Male 02/28/2024 4:16 PM EST Sexual Orientation Heterosexual (straight) 02/27 4:16 PM EST documented as of this encounter Last Filed Vital Signs Vital Sign Reading [...] Mass Index 28 02/29/2024 4:00 AM EST documented in this encounter Discharge Summaries * Mariah Messer MD - 03/04/2024 4:02 PM EST Images from the original note were not included. PATIENT DEMOGRAPHICS KAREN GORDON 1955 68 y.o. 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 MEDICATIONS AT TIME OF ADMISSION Current Outpatient Medications Medication Instructions atorvastatin (LIPITOR) 20 mg, Oral, Nightly carBAMazepine (TEGRETOL) 400 mg, Oral, Nightly cyclobenzaprine (FLEXERIL) 10 mg, Oral, Nightly PRN D-MANNOSE PO Oral DULoxetine (CYMBALTA) 30 mg, Oral, Nightly DULoxetine (CYMBALTA) 60 mg, Oral, Nightly gabapentin (NEURONTIN) 300 mg, Oral, Nightly levothyroxine (SYNTHROID, LEVOTHROID) 50 MCG tablet 1 tablet, Oral, Daily, ONLY Sunday through Sunday metoPROLOL TARTRATE (LOPRESSOR) 25 mg, Oral, 2 times daily PANTOprazole (PROTONIX) 40 mg, Oral, 2 times daily topiramate (TOPAMAX) 25 mg, Oral, 2 times daily vitamin C 1,000 mg, Oral, Daily warfarin (COUMADIN) 5 mg, Oral, Daily DISCHARGE MEDICATIONS ( Includes Changes Made During Current Admission) Discharge Medications New Medications Sig warfarin 5 MG tablet Commonly known as: COUMADIN Take 1 tablet (5 mg total) by mouth daily at the same time. Quantity: 7 tablet Medications To Continue Sig atorvastatin 20 MG tablet Commonly known as: LIPITOR Take 1 tablet (20 mg total) by mouth nightly. carBAMazepine 200 MG tablet Commonly known as: TEGretol Take 2 tablets (400 mg total) by mouth nightly. cyclobenzaprine 10 MG tablet Commonly known as: FLEXERIL Take 1 tablet (10 mg total) by mouth nightly as needed for muscle spasms. D-MANNOSE PO Take by mouth. * DULoxetine 30 MG capsule Commonly known as: CYMBALTA Take 1 capsule (30 mg total) by mouth nightly. * DULoxetine 60 MG capsule Commonly known as: CYMBALTA Take 1 capsule (60 mg total) by mouth nightly. gabapentin 300 MG capsule Commonly known as: NEURONTIN Take 1 capsule (300 mg total) by mouth nightly. levothyroxine 50 MCG tablet Commonly known as: SYNTHROID, LEVOTHROID Take 1 tablet (50 mcg total) by mouth daily on an empty stomach. ONLY Sunday through Sunday metoPROLOL TARTRATE 25 MG tablet Commonly known as: LOPRESSOR Take 1 tablet (25 mg total) by mouth 2 (two) times a day. Quantity: 60 tablet PANTOprazole 40 MG EC tablet Commonly known as: PROTONIX Take 1 tablet (40 mg total) by mouth 2 times a day. topiramate 25 MG tablet Commonly known as: TOPAMAX Take 1 tablet (25 mg total) by mouth 2 (two) times a day. vitamin C 1000 MG tablet Take 1 tablet (1,000 mg total) by mouth daily. * There are duplicate medications prescribed to the patient DISCHARGE INSTRUCTIONS No discharge procedures on file. FOLLOW UP No future appointments. ACTIVE ISSUES FOR FOLLOW UP Please see discharge instructions and radiological and hematological tests below for follow up. : #You were transferred from outside hospital for management of saddle pulmonary embolism. Workup also revealed right lower extremity deep vein thrombus. You underwent aspiration thrombectomy of the blood clot. #We have started you on blood thinner with Coumadin. Please note that you will need INR monitoring while on Coumadin and the goal INR is 2-3. At this time we are discharging you on dose of Coumadin 5Mg once daily, you will need a follow up blood work to monitor in next 2-3 days and then weekly. Dose will need to be adjusted accordingly. Please follow-up with your primary care doctor within 1 week of discharge. #You will also need an echocardiogram in 3 months to monitor for any signs of pulmonary HTN. You will need to follow up with pulmonology, please discuss with your PCP for the referral. DISCHARGE DAY NOTE Patient was seen and examined by me on the date of discharge. P/E: General Appearance: Alert, Awake, not in acute distress. Cardiovascular: S1-S2 present, no murmurs present. Respiratory: Bilateral air entry present, no added sounds heard Gastrointestinal: soft, non-tender, non-distended, bowel sounds present. Extremities: negative edema I spoke with the patient regarding the discharge plan. The discharge plan was discussed with the case management and the nursing staff. Patient verbalzied understanding of the discharge and was agreeable for the discharge plan. Discharge Condition: stable Last Vitals: Pulse:82,Resp:18,BP:122/60,SpO2:98 %,Weight: 83.5 kg (184 lb 1.4 oz) Temp Last 24 hrs: Temp Min: 96.9 ??F (36.1 ??C) Max: 97.2 ??F (36.2 ??C) DETAILS OF HOSPITAL STAY History of Present Illness (from the H&P) Pt is a 68 YOM with a PMH of chronic back pain s/p intrathecal fentanyl pump placement, Bipolar disorder, spondylitis spondylosis who initially presented to an OSH for shortness of breath. Per pt report, he was already en route to the OSH for an outpatient appointment when he began to develop shortness of breath and felt as if he was having a panic attack. On arrival to the OSH, upon entering the building, he then lowered himself to the ground. He was ultimately transferred to the OSH ED. While there a CTA was completed which revealed bilateral pulmonary emboli. Pt was transferred to botany laboratory assistant for emergent aspiration thrombectomy Subjective Patient looks pleasant, comfortable. He denies any shortness of breath, dizziness, chest pain, lightheadedness. He endorses mild weakness on activity. Hospital Course Mr. Gordon is a 68 y.o. male, who was transfered from outside hospital for further management of saddle PE. Patient underwent aspiration thrombectomy with improvement in pulmonary artery pressure andhemodynamics. He was kept on telemetry monitoring which showed sinus tachycardia. Patient was started on warfarin with bridging Lovenox. Warfarin was being dosed by pharmacy. Lovenox discontinued once INR was therapeutic. Patient cannot be on DOAC given he is on carbamazepine. Echocardiogram shows normal right ventricular function with hypokinesis of mid free wall. Duplex ultrasound of bilateral lower extremity shows Rt LE Acute DVT. Patient had sinus tachycardia upto 120s, worse with activity.He was started on metoprolol tartrate which was uptitrated to 25 Mg twice daily today. Needs echo in 3 months to monitor RV pressures. Patient is continued on home medications including topiramate, gabapentin, carbamazepine, pantoprazole, cyclobenzaprine, duloxetine, atorvastatin. Patient is on intrathecal pain pump-fentanyl. He wasalso evaluated by PT/OT. He needs INR follow up in next 2-3 days and then weekly. Being discharged on coumadin 5 mg daily. He will need to follow up with his PCP within 1 week of discharge. Patient has been made well aware that he will have a prescription for only 1 week at discharge. Problem list: Acute hypoxic respiratory failure, resolved Acute saddle Pulmonary embolus, bilateral s/p aspiration thrombectomy on 02/28/2024 Rt LE Acute DVT Sinus tachycardia Hypophosphatemia, resolved Elevated troponin, likely in the setting of demand ischemia Lactic acidosis, resolved GERD Bipolar disorder Hypothyroidism Spondylitis/chronic pain/on intrathecal fentanyl pump Procedures: Surgical/Procedural Cases on this Admission Case IDs Date Procedure Surgeon Location Status [id number] 02/28/24 ARTERIOGRAPHY PULMONARY SELECT-BILAT Jerry Plata MD ADULT NURSE PRACTITIONER Comp Diagnostic Studies: Vas Venous Duplex - Leg Result Date: 03/01/2024 Table formatting from the original result was not included. Department: [facility] Vascular Lab Patient: [id number] (KAERN GORDON) Patient Location: ..[address] CPT Code: 65312 ICD-9: Referring Physician: VEA Phelps Critical Findings: The report was given to Elpidio Whitaker MD by Julissa Bush/Jenise Rosales RVT at 4:15pm on 02/29/2024. Result: acute thrombus of the right popliteal vein, tibio- peroneal trunk, and peroneal veins Read Back Performed: [...] thrombus seen in jaffe scale. Findings are not consistent with the presenceof deep vein thrombosis. Indications Pulmonary Embolism Other [I26.99]. 68 year old male admitted with PE presents for a venous duplex evaluation. Findings: Right Impression Phasic Compressible Common Femoral Vein Normal Yes Complete Proximal femoral vein Normal Complete Mid femoral vein Normal Complete Distal femoral vein Normal Complete Popliteal Acute Partial Thrombus Partial Tibeoperoneal Trun k Acute Complete Thrombus Non-compressible Posterior Tibial Vein [...] on 2024-03-01 03:36:55 PM End of Report Endovascular Procedure Result Date: 02/29/2024 Table formatting from the original result was not included. Images from the original result were not included. [facility] Heart & Vascular [place] at [facility] - Cardiac Catheterization Laboratory [facility] Heart & V[facility] [place] at [facility] - Cardiac Catheterization Laboratory PATIENT DEMOGRAPHIC INFORMATION Name: Karen Gordon : 1955 68 y.o. Sex: male Gender: male Procedure Date: 02/28/2024 PROCEDURE DETAILS Mill Set Up: Jerry Plata MD Fellow: MD Alla Gallegos MD Omar Yacob, MBBS General Assignment Reporter(s): none Indications for Procedure: Pulmonary embolism Referring Physician: Charles Fenton PCP: Bonilla Grant MD Procedure(s): Procedures: * ARTERIOGRAPHY PULMONARY SELECT-BILAT * RIGHT HEART CATH, CORONARY ANGIOGRAM * THROMBECTOMY CONCLUSIONS/RECOMMENDATIONS S/p large bore mechanical thrombectomy with removal of significantthrombus Reduction in mean PA pressures from 38 mm Hg to 22 mm Hg Continue therapeutic enoxaparin, anticipate transition to DOAC tomorrow Formal echocardiogram, LE dopplers pending PROCEDURE FINDINGS Pressures Site RA 13 mmHg/9 mmHg (9 mmHg) RV 39 mmHg/21 mmHg 20 mmHg PA Pre Intervention: 53/29 (38) Post Intervention:33 mmHg/14 mmHg (22 mmHg) O2 Sats RA 44.1 % PA 48 % AO 98 % Cardiac Output/Resistances: CO = 2.76 L/min ; CI = 1.4 L/min/kg2 QS = 2.76 Tracings available in [employer] log report CLINICAL HISTORY 64-year-old male presents to the hospital shortness of breath found to have intermediate risk pulmonary embolism with risk enhancing features. PROCEDURE Informed consent was obtained; a procedural timeout was performed; the patient was prepped and draped in sterile fashion; Access: Right femoral vein Sheath: 24F Cymro Under ultrasound guidance the right femoral vein was accessed with a 7F sheath. The vein was preclosed. A right heart catheterization was performed with a [place] Ritchie Catheter. A pigtail was used to perform selective right and left pulmonary angiography.The right pulmonary artery was selected with a 0.035 J-wire. We then exchanged out the 0.035 for an Amplatz Superstiff wire. We dilated the right femoral vein site and inserted a 24Fr sheath. We then inserted theFlowtreiver 24fr catheter and performed aspiration thrombectomy of [...] and Associated Flowsheet Values (last 24 hours) Date/Time Action Medication Dose 02/28/241921 Given iohexol (OMNIPAQUE) 350 mg/mL injection 120 mL Estimated Blood Loss: 10 mL Verbal Orders and Supervisory Attestation: As the [...] this patient that I request from a [facility] PA/AUTOMOTIVE EXHAUST EMISSIONS TECHNICIAN/fellow/staff member. Jerry Plata MD [facility] [place] 02/28/2024 7:34 PM CARDIAC CATHETERIZATION Result Date: 02/29/2024 Table formatting from the original result was not included. Images from the original result were not included. [facility] Heart & Vascular [place] [facility] - Cardiac Catheterization Laboratory [facility] & Vascular [facility] - Cardiac Catheterization Laboratory PATIENT DEMOGRAPHIC INFORMATION Name: Karen Gordon : 1955 68 y.o. Sex: male Gender: male Procedure Date: 02/28/2024 PROCEDURE DETAILS Mill Set Up: Jerry Plata MD Fellow: MD Alla Gallegos MD Omar Yacob, MBBS General Assignment Reporter(s): none Indications for Procedure: Pulmonary embolism Referring Physician: Charles Fenton PCP: Bonilla Grant MD Procedure(s): Procedures: * ARTERIOGRAPHY PULMONARY SELECT-BILAT * RIGHT HEART CATH, CORONARY ANGIOGRAM * THROMBECTOMY CONCLUSIONS/RECOMMENDATIONS S/p large bore mechanical thrombectomy with removal of significantthrombus Reduction in mean PA pressures from 38 mm Hg to 22 mm Hg Continue therapeutic enoxaparin, anticipate transition to DOAC tomorrow Formal echocardiogram, LE dopplers pending PROCEDURE FINDINGS Pressures Site RA 13 mmHg/9 mmHg (9 mmHg) RV 39 mmHg/21 mmHg 20 mmHg PA Pre Intervention: 53/29 (38) Post Intervention:33 mmHg/14 mmHg (22 mmHg) O2 Sats RA 44.1 % PA 48 % AO 98 % Cardiac Output/Resistances: CO = 2.76 L/min ; CI = 1.4 L/min/kg2 QS = 2.76 Tracings available in [employer] log report CLINICAL HISTORY 64-year-old male presents to the hospital shortness of breath found to have intermediate risk pulmonary embolism with risk enhancing features. PROCEDURE Informed consent was obtained; a procedural timeout was performed; the patient was prepped and draped in sterile fashion; Access: Right femoral vein Sheath: 24F Cymro Under ultrasound guidance the right femoral vein was accessed with a 7F sheath. The vein was preclosed. A right heart catheterization was performed with a [place] Ritchie Catheter. A pigtail was used to perform selective right and left pulmonary angiography.The right pulmonary artery was selected with a 0.035 J-wire. We then exchanged out the 0.035 for an Amplatz Superstiff wire. We dilated the right femoral vein site and inserted a 24Fr sheath. We then inserted theFlowtreiver 24fr catheter and performed aspiration thrombectomy of [...] and Associated Flowsheet Values (last 24 hours) Date/Time Action Medication Dose 02/28/241921 Given iohexol (OMNIPAQUE) 350 mg/mL injection 120 mL Estimated Blood Loss: 10 mL Verbal Orders and Supervisory Attestation: As the [...] this patient that I request from a [facility] PA/AUTOMOTIVE EXHAUST EMISSIONS TECHNICIAN/fellow/staff member. Jerry Plata MD [facility] Heart & Vascular [place] 02/28/2024 7:34 PM ERROL Archive for reference only CT Result Date: 02/28/2024 This order has been auto-finalized and does not contain a result. ERROL Archive for reference only CR Result Date: 02/28/2024 This order has been auto-finalized and does not contain a result. ERROL Archive for reference only CT Result Date: 02/28/2024 This order has been auto-finalized and does not contain a result. Echocardiogram Interpretation Summary Show Result Comparison The left ventricle is small. Left ventricular systolic function is normal. The quantitative EF by 2D Prather biplane is 69%. The right ventricle is normal in size. Right ventricular systolic function is normal with hypokinesis of the mid free wall. There is trace tricuspid regurgitation. The estimated right ventricular systolic pressure is mildlyelevated at 37 mmHg. There is no previous study for comparison in our system. Findings Left Ventricle The left ventricle is small. Concentric remodeling of the left ventricle is present.Left ventricular systolic function is normal. The quantitative [...] on IVC diameter and collapse, right atrial pressureis estimated to be moderately elevated (8 mmHg). Mitral Valve The mitral valve is structurally normal. There is no mitral regurgitation. Tricuspid Valve The tricuspid valve is structurally normal. There is trace tricuspid regurgitation.The estimated right ventricular systolic pressure is mildly elevated at 37 mmHg. Aortic Valve The aortic valve is tricuspid. The aortic valve leaflets are mildly thickened.There isno aortic regurgitation or stenosis. Aorta The aortic root and ascending aorta are normal in dimension. Pericardium There is a minimal pericardial effusion. Results from last 7 days Lab Units 03/04/24 0556 03/03/24 0811 03/02/24 0724 02/28/24 2113 02/28/24 1608 WHITE BLOOD CELL COUNT Thou/uL 5.8 8.3 7.8 < > 12.5* HEMOGLOBIN g/dL 12.1* 12.3* 12.2* < > 13.6 HEMATOCRIT % 37.1* 38.4* 37.6* < > 41.7 PLATELET COUNT Thou/uL 153 168 137* < > 144* NEUTROS PCT % -- -- -- -- 76.5 LYMPHS PCT % -- -- -- -- 14.7 MONOS PCT % -- -- -- -- 6.3 EOS PCT % -- -- -- -- 0.5 BASOS PCT % -- -- -- -- 0.2 < > = values in this interval not displayed. Results from last 7 days Lab Units 03/04/24 1251 03/04/24 0556 03/03/24 0811 02/28/24 2047 02/28/24 1608 SODIUM mmol/L 140 141 139 < > 141 POTASSIUM mmol/L 4.6 5.0 4.3 < > 4.6 CHLORIDE mmol/L 102 107 103 < > 108* CO2 mmol/L 25 24 23 < > 20* BUN mg/dL 16 17 15 < > 18 CREATININE mg/dL 1.3 1.4* 1.4* < > 1.1 CALCIUM mg/dL 9.1 9.4 9.0 < > 9.6 GLUCOSE mg/dL 92 113* 151* < > 98 GLUCOSE, POC -- -- -- < > -- EGFR 61 55* 55* < > 74 ALBUMIN g/dL -- -- -- -- 3.9 PROTEIN, TOTAL g/dL -- -- -- -- 7.5 BILIRUBIN TOTAL mg/dL -- -- -- -- 0.3 ALK PHOS U/L -- -- -- -- 134* ALT U/L -- -- -- -- 30 AST U/L -- -- -- -- 28 < > = values in this interval not displayed. Lab Results Component Value Date ALT 30 02/28/2024 AST 28 02/28/2024 ALKPHOS 134 (H) 02/28/2024 BILITOT 0.3 02/28/2024 Results from last 7 days Lab Units 03/04/24 0556 03/01/24 0837 02/28/24 2113 PROTHROMBIN TIME (PT) seconds 27.7* < > 13.5 APTT seconds -- -- 60* INR 2.4 < > 1.2 < > = values in this interval not displayed. Lab Results Component Value Date PROBNP 296 (H) 03/04/2024 Blood Cultures: No results found for: SOURCE , SREQ , CULTURE , STATUS Urine Cultures: No results found for: CRYSUA , HYALNCSTUA , UROBILINOGEN , BILIUA , BLOODUA , CLARITYUA , COLORUA , UACOMMENT , GLUCU , KETONESUA , LEUKOCYTESUA , NITRITEUA , PHUA , PROTEINUA , RBCUA , SPECIMEN , SPECGRAVUA , SQEPIUA , WBCUA C. Difficile: No results found for: CDIFFTOX , NAP1 TIME SPENT FOR DISCHARGE Total time spent for discharge 40 minutes Time was spent in educating the patient, making a comprehensive discharge plan and discussion with the staff regarding the discharge plan, medication reconciliation and discharge summary. Mariah Messer MD 03/04/2024 4:03 PM documented in this encounter Discharge Instructions * Discharge Instr - Other Orders* Mariah Messer MD - 03/03/2024 5:16 PM EST #You were transferred from outside hospital for management of saddle pulmonary embolism. Workup also revealed right lower extremity deep vein thrombus. You underwent aspiration thrombectomy of the blood clot. #We have started you on blood thinner with Coumadin. Please note that you will need INR monitoring while on Coumadin and the goal INR is 2-3. At this time we are discharging you on dose of Coumadin 5Mg once daily, you will need a follow up blood work to monitor in next 2-3 days and then weekly. Dose will need to be adjusted accordingly. Please follow-up with your primary care doctor within 1 week of discharge. #You will also need an echocardiogram in 3 months to monitor for any signs of pulmonary HTN. You will need to follow up with pulmonology, please discuss with your PCP for the referral. documented in this encounter Medications at Time of Discharge Medication Sig Dispensed Refills Start Date End Date atorvastatin (LIPITOR) 20 MG tablet Take 1 tablet (20 mg total) by mouth nightly. 12/07/2023 carBAMazepine (TEGretol) 200 MG tablet Take 2 tablets (400 mg total) by mouth nightly. 02/15/2024 DULoxetine (CYMBALTA) 30 MG capsule Take 1 capsule (30 mg total) by mouth nightly. 02/15/2024 DULoxetine (CYMBALTA) 60 MG capsule Take 1 capsule (60 mg total) by mouth nightly. 02/18/2024 gabapentin (NEURONTIN) 300 MG capsule Take 1 capsule (300 mg total) by mouth nightly. 07/16/2023 levothyroxine (SYNTHROID, LEVOTHROID) 50 MCG tablet Take 1 tablet (50 mcg total) by mouth daily on an empty stomach. ONLY Sunday through Sunday10/27/2023 PANTOprazole (PROTONIX) 40 MG EC tablet Take 1 tablet (40 mg total) by mouth 2 times a day. 10/16/2023 topiramate (TOPAMAX) 25 MG tablet Take 1 tablet (25 mg total) by mouth 2 (two) times a day. 07/31/2023 Ascorbic Acid (vitamin C) 1000 MG tablet Take 1 tablet (1,000 mg total) by mouth daily. cyclobenzaprine (FLEXERIL) 10 MG tablet Take 1 tablet (10 mg total) by mouth nightly as needed for muscle spasms. D-MANNOSE PO Take by mouth. metoPROLOL TARTRATE (LOPRESSOR) 25 MG tabletIndications:Acute saddle pulmonary embolism without acute cor pulmonale (HCC) Take 1 tablet (25 mg total) by mouth 2 (two) times a day. 60 tablet 03/04/2024 warfarin (COUMADIN) 5 MG tabletIndications:Acute saddle pulmonary embolism without acute cor pulmonale (HCC) Take 1 tablet (5 mg total) by mouth daily at the same time. 7 tablet 03/04/2024 documented as of this encounter Progress Notes * Susan Graves RN - 03/04/2024 2:00 PM EST Final Case Management Care Plan Note Patient cleared by MD for discharge today. RN providing discharge instructions and paperwork at bedside. Family/patient updated. Plan for home support: Home Routine Caregiver/responsible person: Self, family Plan for medication post discharge: Family is able to assist with obtaining any medications as needed. Plan for food/necessities post discharge: Family is able to assist with obtaining any supplies as needed. Patient/responsible person understanding of potential self-isolation and self- care guidelines: Patient is alert & oriented and able to understand instructions. Follow-up provider appointment: See discharge paperwork. PCP Office setting [facility] up [facility] [place]. They will contact him. This technical report writer spoke with His PCP office: Dr. Grant [phone] * Equipment Ordered and Given at Discharge: None Final Discharge Transportation: Arranged by patient with family Final Destination: Home Routine Verification of Covid-19 notification to next level of care: Negative 03/04/24 9159 Plan Plan Home routine Patient/Family in Agreement with Plan yes Plan Comments Home routine Final Discharge Disposition Code 01 - home or self-care * Aimee TapiaD - 03/04/2024 10:54 AM EST Warfarin Pharmacy Follow-Up Day: 4 Date: 03/04/24 INR: 2.4 Dose: 5 mg Comments: * Aimee CarreraD - 03/03/2024 2:00 PM EST Warfarin Pharmacy Follow-Up Day: 3 Date: 03/03/24 INR: 2.4 Dose: No dose Comments: Patient's INR increased rapidly in 24 hours. Anticipating for INR to continue to increase. * Mariah Messer MD - 03/03/2024 10:29 AM EST [facility] PROGRESS NOTE Assessment & Plan Brief Summary: Mr. Gordon is a 68 y.o. male, who is a transfer from outside hospital for further management of saddle PE. 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 Echocardiogram shows normal right ventricular function with hypokinesis of mid free wall. Duplex ultrasound of bilateral lower extremity shows Rt LE Acute DVT. Patient was started on warfarin with bridging Lovenox. INR now thrapeutic. Lovenox discontinued. Patient cannot be on DOAC given he is on carbamazepine. Appreciate pharmacy inputs for dosing of coumadin for dc planning. - Patient has sinus tachycardia upto 120s and worse with activit despite low- dose metoprolol tartrate 12.5 Mg twice daily. Will uptitrate to metoprolol tartrate 25 Mg twice daily today. -Continue on home medications including topiramate, gabapentin, carbamazepine, pantoprazole, cyclobenzaprine, duloxetine, atorvastatin. -Patient is on intrathecal pain pump-fentanyl -Monitor labs closely -Symptomatic and supportive care -PT/OT Scheduled Meds: vitamin C, 1,000 mg, Oral, Daily atorvastatin, 20 mg, Oral, Nightly carBAMazepine, 400 mg, Oral, Nightly chlorhexidine, 15 mL, Mouth/Throat, BID cyclobenzaprine, 10 mg, Oral, Nightly DULoxetine, 90 mg, Oral, Nightly gabapentin, 300 mg, Oral, Nightly levothyroxine, 50 mcg, Oral, Daily 6AM lidocaine, 2 patch, Transdermal, Daily metoPROLOL TARTRATE, 25 mg, Oral, Q12H GE PANTOprazole, 40 mg, Oral, BID senna-docusate, 2 tablet, Oral, Nightly topiramate, 25 mg, Oral, BID warfarin, , Pharmacy Protocol Orders, Pharmacy Protocol Orders Continuous Infusions: patient own IMPLANTED pump, PRN Meds: bisacodyl lactulose naloxone Discharge Barriers: Tachycardia, titrating metoprolol Quality Metrics DVT PROPHYLAXIS Risk Assessment Scores and Dates: VTE Time Out VTE risk assessment NOT done - Click here to document Chemical Prophylaxis warfarin (COUMADIN) DOSING PROTOCOL by PHARMACY Pharmacy Protocol Orders Pharmacy Protocol Orders Heparin Sodium (Porcine), Enoxaparin Sodium, Apixaban 10 mg Last dose 02/29/2024 11:18 AM Enoxaparin Sodium 90 mg Last dose 03/03/2024 9:56 AM Warfarin Sodium 7.5 mg Last dose 03/01/2024 4:39 PM Warfarin Sodium 7.5 mg Last dose 03/02/2024 5:03 PM Mechanical Prophylaxis Mechanical VTE prophylaxis NOT ordered. Antibiotic Stewardship Treatment Indication: NA Expected Date of Discharge 03/04/2024 Subjective Chief complaint Chief Complaint Patient presents with Abnormal Test Result Patient is being seen for acute medical problems and follow-up for chronic medical issues as mentioned in the assessment and plan above. Subjective and ROS Patient endorses weakness on activity. Denies any chest pain, dizziness, lightheadedness, shortnessof breath or other symptoms. Objective Vitals: 03/01/24 0552 03/01/24 1745 03/01/24 2138 03/02/24 0638 BP: 110/77 131/85 134/81 126/83 Pulse: 91 (!) 109 (!) 104 95 Resp: Temp: 97.8 ??F (36.6 ??C) 99.9 ??F (37.7 ??C) 97.7 ??F (36.5 ??C) 96.4 ??F (35.8 ??C) SpO2: 95% 96% 98% 94% 03/02/24 1615 03/02/24 2045 03/03/24 0555 03/03/24 0954 BP: (!) 150/80 132/88 132/76 118/60 Pulse: 65 76 80 Resp: Temp: 96.7 ??F (35.9 ??C) 96.9 ??F (36.1 ??C) 96.7 ??F (35.9 ??C) SpO2: 100% 98% 96% 97% Physical Exam General: No Acute Distress Sclerae anicteric, Conjunctivae pink, Mucous membranes moist Lungs: Clear to auscultation CVS: Regular rhythm, Normal S1, Normal S2 Abdomen: Normal bowel sounds, Soft, Non-tender. Extremities: No edema. Neurological: Alert, Oriented X3, Normal speech, symmetrical face, No focal sensory or motor deficits. Relevant data reviewed Results from last 7 days Lab Units 03/03/24 0811 WHITE BLOOD CELL COUNT Thou/uL 8.3 HEMOGLOBIN g/dL 12.3* HEMATOCRIT % 38.4* PLATELET COUNT Thou/uL 168 Results from last 7 days Lab Units 03/03/24 0811 SODIUM mmol/L 139 POTASSIUM mmol/L 4.3 CHLORIDE mmol/L 103 CO2 mmol/L 23 BUN mg/dL 15 CREATININE mg/dL 1.4* EGFR 55* GLUCOSE mg/dL 151* CALCIUM mg/dL 9.0 Sign Mariah Messer MD 03/03/2024 10:29 AM * Mariah Messer MD - 03/02/2024 1:34 PM EST [facility] PROGRESS NOTE Assessment & Plan Brief Summary: Mr. Gordon is a 68 y.o. male, who is a transfer from outside hospital for further management of saddle PE. 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 -Patient started on warfarin with bridging Lovenox. Continue on therapeutic Lovenox 90 mg twice daily until reaches to target level of INR 2-3. Today INR is 1.2. Warfarin to dose per pharmacy. Patient cannot be on DOAC given he is on carbamazepine. -Echocardiogram shows normal right ventricular function with hypokinesis of mid free wall. -duplex ultrasound of bilateral lower extremity shows Rt LE Acute DVT -- Patient has sinus tachycardia in 100s and worse with minimal activity, will initiate low-dose metoprolol tartrate 12.5 Mg twice daily. -Continue on home medications including topiramate, gabapentin, carbamazepine, pantoprazole, cyclobenzaprine, duloxetine, atorvastatin. -Patient is on intrathecal pain pump-fentanyl -Monitor labs closely -Symptomatic and supportive care -PT/OT Scheduled Meds: vitamin C, 1,000 mg, Oral, Daily atorvastatin, 20 mg, Oral, Nightly carBAMazepine, 400 mg, Oral, Nightly chlorhexidine, 15 mL, Mouth/Throat, BID cyclobenzaprine, 10 mg, Oral, Nightly DULoxetine, 90 mg, Oral, Nightly enoxaparin (LOVENOX) injection for treatment, 1 mg/kg, Subcutaneous, Q12H gabapentin, 300 mg, Oral, Nightly levothyroxine, 50 mcg, Oral, Daily 6AM lidocaine, 2 patch, Transdermal, Daily [Provider Held] metoPROLOL TARTRATE, 25 mg, Oral, Q12H GE PANTOprazole, 40 mg, Oral, BID senna-docusate, 2 tablet, Oral, Nightly topiramate, 25 mg, Oral, BID warfarin, , Pharmacy Protocol Orders, Pharmacy Protocol Orders warfarin, 7.5 mg, Oral, Once Continuous Infusions: patient own IMPLANTED pump, PRN Meds: bisacodyl lactulose naloxone Discharge Barriers: Symptoms, awaiting therapeutic INR on coumadin Quality Metrics DVT PROPHYLAXIS Risk Assessment Scores and Dates: VTE Time Out VTE risk assessment NOT done - Click here to document Chemical Prophylaxis warfarin (COUMADIN) DOSING PROTOCOL by PHARMACY Pharmacy Protocol Orders Pharmacy Protocol Orders enoxaparin (LOVENOX) syringe 90 mg Subcutaneous Every 12 hours warfarin (COUMADIN) tablet 7.5 mg Oral Once Heparin Sodium (Porcine) 5000 Units Last dose 56:46 PM Enoxaparin Sodium 90 mg Last dose 02/29/2024 1:31 AM Apixaban 10 mg Last dose 02/29/2024 11:18 AM Enoxaparin Sodium 90 mg Last dose 03/02/2024 9:58 AM Warfarin Sodium 7.5 mg Last dose 03/01/2024 4:39 PM Mechanical Prophylaxis Mechanical VTE prophylaxis NOT ordered. Antibiotic Stewardship Treatment Indication: NA Expected Date of Discharge 03/04/2024 Subjective Chief complaint Chief Complaint Patient presents with Abnormal Test Result Patient is being seen for acute medical problems and follow-up for chronic medical issues as mentioned in the assessment and plan above. Subjective and ROS Patient endorses no symptoms at rest but endorses weakness and worse with ambulation. Denied any chest pain, dizziness, lightheadedness, fever or other symptoms. Objective Vitals: 02/29/24 1200 02/29/24 1300 02/29/24 1400 02/29/242032 BP: (!) 145/77 115/70 121/84 Pulse: (!) 103 (!) 101 (!) 103 (!) 102 Resp: (!) 31 (!) 28 (!) 36 (!) 21 Temp: 97 ??F (36.1 ??C) 96.4 ??F (35.8 ??C) SpO2: 94% 96% 97% 97% 03/01/24 0552 03/01/24 1745 03/01/24 2138 03/02/24 0638 BP: 110/77 131/85 134/81 126/83 Pulse: 91 (!) 109 (!) 104 95 Resp: 20 18 Temp: 97.8 ??F (36.6 ??C) 99.9 ??F (37.7 ??C) 97.7 ??F (36.5 ??C) 96.4 ??F (35.8 ??C) SpO2: 95% 96% 98% 94% Physical Exam General: No Acute Distress Sclerae anicteric, Conjunctivae pink, Mucous membranes moist Lungs: Clear to auscultation CVS: Regular rhythm, Normal S1, Normal S2 Abdomen: Normal bowel sounds, Soft, Non-tender. Extremities: No edema. Neurological: Alert, Oriented X3, Normal speech, symmetrical face, No focal sensory or motor deficits. Relevant data reviewed Results from last 7 days Lab Units 03/02/24 0724 WHITE BLOOD CELL COUNT Thou/uL 7.8 HEMOGLOBIN g/dL 12.2* HEMATOCRIT % 37.6* PLATELET COUNT Thou/uL 137* Results from last 7 days Lab Units 03/02/24 0724 SODIUM mmol/L 139 POTASSIUM mmol/L 3.9 CHLORIDE mmol/L 107 CO2 mmol/L 19* BUN mg/dL 19 CREATININE mg/dL 1.3 EGFR 61 GLUCOSE mg/dL 123* CALCIUM mg/dL 8.9 Sign Mariah Messer MD 03/02/2024 1:34 PM * Leonidas Gilliam, PharmD - 03/02/2024 10:32 AM EST Warfarin Pharmacy Follow-Up Day: 2 Date: 03/02/2024 INR: 1.1 Dose: 7.5 mg Comments: Patient did not receive the dose he was ordered for yesterday due to it being on APR hold. * Mariah Messer MD - 03/01/2024 3:41 PM EST [facility] PROGRESS NOTE Assessment & Plan Brief Summary: Mr. Gordon is a 68 y.o. male, who is a transfer from outside hospital for further management of saddle PE. 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 -Patient started on warfarin with bridging Lovenox. Continue on therapeutic Lovenox 90 mg twice daily until reaches to target level of INR 2-3. Warfarin to dose per pharmacy. Patient cannot be on DOAC given he is on carbamazepine. -Echocardiogram and duplex ultrasound of bilateral lower extremity to be followed --Metoprolol is currently on hold given that he is in sinus rhythm, rate controlled. Will eventually resume metoprolol as indicated. -Continue on home medications including topiramate, gabapentin, carbamazepine, pantoprazole, cyclobenzaprine, duloxetine, atorvastatin. -Patient is on intrathecal pain pump-fentanyl -Monitor labs closely -Symptomatic and supportive care -PT/OT Scheduled Meds: vitamin C, 1,000 mg, Oral, Daily atorvastatin, 20 mg, Oral, Nightly carBAMazepine, 400 mg, Oral, Nightly chlorhexidine, 15 mL, Mouth/Throat, BID cyclobenzaprine, 10 mg, Oral, Nightly DULoxetine, 90 mg, Oral, Nightly enoxaparin (LOVENOX) injection for treatment, 1 mg/kg, Subcutaneous, Q12H gabapentin, 300 mg, Oral, Nightly levothyroxine, 50 mcg, Oral, Daily 6AM lidocaine, 2 patch, Transdermal, Daily [Provider Held] metoPROLOL TARTRATE, 25 mg, Oral, Q12H GE PANTOprazole, 40 mg, Oral, BID senna-docusate, 2 tablet, Oral, Nightly topiramate, 25 mg, Oral, BID warfarin, , Pharmacy Protocol Orders, Pharmacy Protocol Orders warfarin, 7.5 mg, Oral, Once Continuous Infusions: patient own IMPLANTED pump, PRN Meds: bisacodyl lactulose naloxone Discharge Barriers: Symptoms, awaiting therapeutic INR on coumadin Quality Metrics DVT PROPHYLAXIS Risk Assessment Scores and Dates: VTE Time Out VTE risk assessment NOT done - Click here to document Chemical Prophylaxis warfarin (COUMADIN) DOSING PROTOCOL by PHARMACY Pharmacy Protocol Orders Pharmacy Protocol Orders enoxaparin (LOVENOX) syringe 90 mg Subcutaneous Every 12 hours warfarin (COUMADIN) tablet 7.5 mg Oral Once Heparin Sodium (Porcine) 5000 Units Last dose 56:46 PM Enoxaparin Sodium 90 mg Last dose 02/29/2024 1:31 AM Apixaban 10 mg Last dose 02/29/2024 11:18 AM Enoxaparin Sodium 90 mg Last dose 03/01/2024 9:40 AM Mechanical Prophylaxis Mechanical VTE prophylaxis NOT ordered. Patient declined SCD use, Please review Antibiotic Stewardship Treatment Indication: NA Expected Date of Discharge 03/03/2024 Subjective Chief complaint Chief Complaint Patient presents with Abnormal Test Result Patient is being seen for acute medical problems and follow-up for chronic medical issues as mentioned in the assessment and plan above. Subjective and ROS Patient endorses improving dyspnea. He did walk around in the hallway but was noted to have significant tachycardia. Denied any chest pain, dizziness, lightheadedness. Endorses weakness. Objective Vitals: 02/29/24 0900 02/29/24 1000 02/29/24 1100 02/29/24 1200 BP: 137/69 110/63 110/71 Pulse: 93 (!) 101 97 (!) 103 Resp: (!) 28 (!) 31 15 (!) 31 Temp: 97 ??F (36.1 ??C) SpO2: 97% 97% 96% 94% 02/29/24 1300 02/29/24 1400 02/29/24 2033 03/01/24 0552 BP: (!) 145/77 115/70 121/84 110/77 Pulse: (!) 101 (!) 103 (!) 102 91 Resp: (!) 28 (!) 36 (!) 21 20 Temp: 96.4 ??F (35.8 ??C) 97.8 ??F (36.6 ??C) SpO2: 96% 97% 97% 95% Physical Exam General: No Acute Distress Sclerae anicteric, Conjunctivae pink, Mucous membranes moist Lungs: Clear to auscultation CVS: Regular rhythm, Normal S1, Normal S2 Abdomen: Normal bowel sounds, Soft, Non-tender. Extremities: No edema. Neurological: Alert, Oriented X3, Normal speech, symmetrical face, No focal sensory or motor deficits. Relevant data reviewed Results from last 7 days Lab Units 03/01/24 0837 WHITE BLOOD CELL COUNT Thou/uL 9.9 HEMOGLOBIN g/dL 13.3 HEMATOCRIT % 40.7 PLATELET COUNT Thou/uL 163 Results from last 7 days Lab Units 03/01/24 0837 SODIUM mmol/L 145 POTASSIUM mmol/L 3.6 CHLORIDE mmol/L 107 CO2 mmol/L 22 BUN mg/dL 18 CREATININE mg/dL 1.3 EGFR 61 GLUCOSE mg/dL 127* CALCIUM mg/dL 9.1 Sign Mariah Messer MD 03/01/2024 3:41 PM * Leonidas Gilliam, PharmD - 03/01/2024 10:34 AM EST Warfarin Pharmacy Follow-Up Day: 2 Date: 03/02/2024 INR: 1.1 Dose: 7.5 mg Comments: Patient did not receive the dose he was ordered for yesterday due to it being on APR hold. * Aimee FairbanksD - 02/29/2024 2:43 PM EST Patient: Karen Gordon Date: 02/29/24 Warfarin Monitoring Patient Information Warfarin Prescribed: Per Pharmacy Home Dose: none; new start Indication and INR Target Indication for Warfarin: PE INR Target: 2 - 3 Day: 1 INR Date Value Ref Range Status 02/28/2024 1.2 Final Comment: INR Therapeutic Ranges: Standard dose anticoagulant 2.0 to 3.0, High dose anticoagulant 2.5-3.5. 02/28/2024 1.1 Final Comment: INR Therapeutic Ranges: Standard dose anticoagulant 2.0 to 3.0, High dose anticoagulant 2.5-3.5. INR Result: 1.2 Date of INR: 02/28/2024 Dose: 7.5 mg Comments: Patient is on warfarin as he is on chronic carbamazepine prior to coming in. He is being bridged with therapeutic Lovenox. Sole Mayer, PharmD Title: Warfarin Dosing per Pharmacy Collaborative Drug Therapy Management Purpose: Achieve and maintain therapeutic INR Scope: This protocol is ordered by a provider and is utilized by providers, pharmacists, RNs, and dietitians Definitions: (if applicable) Population: All patients ordered warfarin protocol per Pharmacy Protocol Responsibilities: Provider: Orders ???Warfarin Dosing Protocol by Pharmacy ()?? to authorize pharmacy to manage warfarin therapy except: Not for ED extended stay patients. Not with concurrent direct-acting oral anticoagulant agent Documents the reason for anticoagulation and the target therapeutic INR range desired. Deep vein thrombosis/pulmonary embolism treatment, atrial fibrillation, etc. INR 2-3 Mechanical mitral valve INR 2.5-3.5 Orthopedic INR 2-2.5 Orders initial/baseline CBC (for hemoglobin, hematocrit and platelets) and PT/INR within 24 hours of initiation of warfarin therapy. Orders daily PT/INR. When PT/INR draws are desired less frequently, provider will dose warfarin per ???Warfarin Dosing by Provider?? . Orders initial (one time) warfarin dose based on initial/baseline INR. Discusses the indication, and risk versus benefit of warfarin with the patient/family. Considers nutrition consult and orders if appropriate. Documents in the medical record /contacts pharmacist directly if procedures are planned that require change in warfarin dosing strategy. Orders reversal for patient with supratherapeutic INRs according to the ???Reversal and perioperative management of antiplatelet anticoagulant medications_[facility]?? or as appropriately indicated based on patient evaluation. Orders a stool hemetest and/or a CBC if there is suspicion for bleeding. The provider may discontinue the ???Warfarin Dosing by Pharmacy Protocol?? at any time. Coordinates follow up care by providing the patient with the: Name and phone number of the provider/clinic monitoring and dosing warfarin after discharge Next INR draw date iii. Initial discharge warfarin dose Pharmacist: Implements, modifies or discontinues warfarin therapy according to this protocol. Pharmacist individualizes the dose for all protocol patients according to detailed assessment of the following parameters: Patient???s prior to admission dosing regimen, if applicable Patient characteristics iii. Drug and food interactions iv. Co-morbidities v. Response to previous warfarin doses while hospitalized, if applicable Calls provider to verify value/range and discuss appropriateness if the target INR value/range written is not within the [employer] (ACCP) INR range for the particular indication. Pharmacist contacts provider for initial one-time warfarin dose if it was not ordered. If unable toreach provider, pharmacist determines appropriate dose based on individualized assessment. Ensures there is an initial/baseline PT/INR value, CBC and daily PT/INR. Orders test per protocol if not ordered by the provider. Ensures that all PT/INR tests are obtained by 12 noon so that all warfarin doses may be ordered by 4 PM daily. Pharmacist determines and orders subsequent/daily warfarin dose based on daily INR result and patient assessment to be given either ???Now??? for patients going home, or ???once at 17:00 today?? . Places orders ???per Protocol- no cosign required?? selecting provider who ordered protocol. Documents pertinent ongoing patient information in the pharmacy structured note ???Warfarin Monitoring?? in electronic health record (EHR). Individualizes patient dosing to meet the target INR range and may order doses ranging from ???no warfarin??? (hold warfarin dose) to 20 mg. Doses above 20 mg will be discussed with the provider. Contacts the provider for supratherapeutic INR as stated below and has RN assess patient for bleeding complications. INR greater than 4 for non-orthopedic patients INR greater than 3.3 for orthopedic patients Contacts provider with dosing, interaction, or adverse event issues. Checks for newly prescribed or discontinued medications. Determines status of epidural (neuraxial) analgesia, lumbar drains, and/or paravertebral blocks anddoses warfarin conservatively in patients receiving procedures with goal that INR remains less than1.5 when lines or drains is removed (per [employer] (RAMYA) standards). When dosing warfarin for patients post-cardiothoracic surgery, reviews progress notes regarding INRgoal at time of pulling epicardial pacing wires. Ensures that the platelet count is at least 100,000/L but preferably 150,000/L before initiation ofwarfarin on patient being anticoagulated with direct thrombin inhibitor due to suspected or documented heparin-induced thrombocytopenia. Participates in and performs warfarin education for patients newly started on warfarin, when feasible, including: Reason for anticoagulation Importance of compliance iii. Drug and food interactions iv. Follow up INR monitoring v. Adverse effects such as bleeding vi. If performed, document on patient education flowsheet in EHR. viii. Document counseling in patient counseling [facility] Demonstrates competency on a regular basis. Registered Nurse: Informs patient of the indication for warfarin anticoagulation as ordered by the provider in [facility]. Monitors and reviews daily PT/INR and hemoglobin/hematocrit and platelet count as ordered by provider. Documents indication for warfarin and INR goal as ordered by provider and other pertinent test results. Administers warfarin as prescribed. Monitors for and notifies provider/pharmacist of suspected bleeding and orders stool hemetest, if applicable. Notifies provider/pharmacist of critical PT/INR value on all patients being managed by ???Warfarin Dosing Protocol by Pharmacy?? . Avoids intramuscular (IM) injections while patients are being anticoagulated due to the risk of hematoma formation. Performs and documents patient education, including: Reason for anticoagulation Importance of compliance iii. Drug and food interactions iv. Follow up INR monitoring v. Adverse effects such as bleeding Coordinates follow up care with discharging provider and provides the patient/family member with: Name and phone number of the provider who will be dosing warfarin after discharge Next INR draw date Initial discharge warfarin dose Dietitian: Provides and documents (provider ordered) nutrition consult, including: Evaluation for food/nutrient/drug interactions Patient education iii. Meal planning Attachments: Related Documents: Replaced Documents: Select an Entity. Enter the name of the replaced document or N/A Review Period: Three Years Issued: 12/07/2003 Approval Date: 08/24/2021 Effective Date: 12/20/2021 Clinical Area[facility] (if applicable) * Abby Addison MD - 02/29/2024 2:42 PM EST Images from the original note were not included. HOSPITAL MEDICINE Progress note Hospital Day: 2, Admit Date: 02/28/2024 Assessment and plan: Principal Problem: 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) (POA: Yes) Resolved Problems: Mr. Gordon is a 68 y.o. male, who is a transfer from outside hospital for further management of saddle PE. Problems' list: Acute hypoxic respiratory failure Pulmonary embolus, bilateral Status post aspiration thrombectomy on 02/28/2024 Hypophosphatemia Elevated troponin, likely in the setting of demand ischemia Lactic acidosis. Improving. 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 -Patient started on warfarin with bridging Lovenox. Continue on therapeutic Lovenox 90 mg twice daily until reaches to target level of INR 2-3. Warfarin to dose per pharmacy. Patient cannot be on DOAC given he is on carbamazepine. -Echocardiogram, duplex ultrasound of bilateral lower extremity to be followed -Resume and continue on home medications including topiramate, gabapentin, carbamazepine, pantoprazole, cyclobenzaprine, duloxetine, atorvastatin. -Metoprolol is currently on hold given that he is in sinus rhythm, rate controlled. And his lactateis unclear at this morning. Eventually resume metoprolol as indicated. -Patient is on intrathecal pain pump-fentanyl -Phosphate is low to 2.5. Ordered K-Phos neutral to up to 50 mg, oral 4 times daily with meals and nightly x 4 doses. Recheck level in AM. -Monitor labs closely -Symptomatic and supportive care -PT/OT I have discussed the patient's condition, and treatment plan with the Patient who agreed with it. And I answered their questions. Quality metrics: # Telemetry: Yes # Diet: Diet Cardiac; 2 gm NA (Low Sodium); Low Fat (50gmfat, Low Chol, Low Sat Fat) # Code status: Full Code # Flanagan catheter: No # Expected Date of Discharge: 03/02/2024 # DVT ppx: VTE Time Out VTE risk assessment NOT done - Click here to document Chemical Prophylaxis warfarin (COUMADIN) tablet 7.5 mg Oral Once warfarin (COUMADIN) DOSING PROTOCOL by PHARMACY Pharmacy Protocol Orders Pharmacy Protocol Orders enoxaparin (LOVENOX) syringe 90 mg Subcutaneous Every 12 hours Heparin Sodium (Porcine) 5000 Units Last dose 02/28/2024 6:46 PM Enoxaparin Sodium 90 mg Last dose 02/29/2024 1:31 AM Apixaban 10 mg Last dose 02/29/2024 11:18 AM Mechanical Prophylaxis Mechanical VTE prophylaxis NOT ordered. Click here to order if appropriate Mechanical Prophylaxis Contraindication: Yes, secondary to Acute ipsilateral DVT Subjective: # Event overnight: No acute events overnight reported I met Mr. Gordon earlier today. he reported feeling better overall. Patient is alert awake and oriented. Offers no complaints at this time. He is getting transferred from ICU to the floor level. Discussed anticoagulation with bridging Lovenox and warfarin. Patient verbalized understanding. Objective: Vital signs over the last 24 hours: Temp: [95.6 ??F (35.3 ??C)-97.8 ??F (36.6 ??C)] 97 ??F (36.1 ??C) Pulse: [79-121] 103 Resp: [15-36] 36 BP: (97-155)/(63-95) 115/70 SpO2 Min: 93 % Max: 100 % O2 Device: room air (none) Flow (L/min) (Oxygen Therapy): 2 Weight: on admission: 90.1 kg (198 lb 10.2 oz), (02/28/2024 2:56 PM) Recent: 86.2 kg (190 lb 0.6 oz), (02/29/2024 4:00 AM) Intake/Output Summary (Last 24 hours) at 02/29/2024 1524 Last data filed at 02/29/2024 1200 Gross per 24 hour Intake 1071.51 ml Output 1660 ml Net -588.49 ml Physical Exam General: Alert, awake, oriented. In no acute distress. Head: Normocephalic, atraumatic Neck: Supple. No JVD Eye: Extraocular movements are intact. Mouth and throat: oral mucosa moist. Cardiovascular: Regular rate and rhythm. Respiratory: Lungs are clear to auscultation. No crackles/wheezes. Gastrointestinal: Abdomen is Soft, Nontender, Normal bowel sounds. Neurological: Alert and orientated. Grossly nonfocal Extremities: No b/l LE edema Psychiatric: Cooperative. Appropriate mood and affect. Scheduled medications 02/29/24 3:24 PM As needed medications: [Transfer Hold] vitamin C, 1,000 mg, Oral, Daily [Transfer Hold] atorvastatin, 20 mg, Oral, Nightly [Transfer Hold] carBAMazepine, 400 mg, Oral, Nightly [Transfer Hold] chlorhexidine, 15 mL, Mouth/Throat, BID [Transfer Hold] cyclobenzaprine, 10 mg, Oral, Nightly [Transfer Hold] DULoxetine, 90 mg, Oral, Nightly [Transfer Hold] enoxaparin (LOVENOX) injection for treatment, 1 mg/kg, Subcutaneous, Q12H [Transfer Hold] gabapentin, 300 mg, Oral, Nightly [Transfer Hold] levothyroxine, 50 mcg, Oral, Daily 6AM [Transfer Hold] lidocaine, 2 patch, Transdermal, Daily [Provider Held] metoPROLOL TARTRATE, 25 mg, Oral, Q12H GE [Transfer Hold] PANTOprazole, 40 mg, Oral, BID [Transfer Hold] potassium phosphate and sodium phosphate, 250 mg, Oral, With meals & nightly [Transfer Hold] senna-docusate, 2 tablet, Oral, Nightly [Transfer Hold] topiramate, 25 mg, Oral, BID [Transfer Hold] warfarin, , Pharmacy Protocol Orders, Pharmacy Protocol Orders [Transfer Hold] warfarin, 7.5 mg, Oral, Once [Transfer Hold] bisacodyl [Transfer Hold] lactulose [Transfer Hold] naloxone Current infusions: [Transfer Hold] patient own IMPLANTED pump, Diagnostic studies: I have reviewed the labs and ordered new labs if needed. Recent Labs 02/28/24 1608 02/28/24 2113 02/29/24 0444 WBC 12.5* 13.9* 9.5 HGB 13.6 12.4* 11.0* HCT 41.7 38.4* 33.7* PLT 144* 141* 119* Recent Labs 02/28/24 1608 02/28/24 2113 02/29/24 0444 NA 141 138 141 K 4.6 3.9 3.9 CO2 20* 18* 18* CL 108* 107 111* BUN 18 15 15 CREAT 1.1 1.1 1.0 CALCIUM 9.6 8.9 8.3* MG 2.0 1.7 2.3 PHOS -- 2.0* 2.5* BILITOT 0.3 -- -- ALKPHOS 134* -- -- AST 28 -- -- ALT 30 -- -- ALBUMIN 3.9 -- -- Recent Labs 02/28/24 1608 02/28/24 2113 PTT -- 60* INR 1.1 1.2 Disclaimer: This document was dictated using voice recognition software. Please excuse inadvertent tablet tester or typing errors, or uncorrected word substitutions. * Billie Gray DO - 02/29/2024 2:09 PM EST MARKING MACHINE OPERATOR ICU PROGRESS NOTE Assessment & Plan Assessment Karen Gordon is a 68 y.o. male with a past medical history significant for hyperlipidemia, gastroesophageal reflux disease, hypothyroidism, possible prior deep venous thrombosis, and chronic back pain status post intrathecal fentanyl pump placement who presented on 02/28/2024 with dyspnea and wasfound to have bilateral pulmonary embolus with evidence of shock, now status post aspiration thrombectomy with immediate improvement in pulmonary artery pressures Acute Hypoxic Respiratory Failure Pulmonary Embolus, Bilateral Status Post Aspiration Thrombectomy (02/28/2024) Patient presented with dyspnea and was found to have bilateral pulmonary embolus with evidence of shock, now status post aspiration thrombectomy with immediate improvement in pulmonary artery pressures and hemodynamics. Patient stable for transfer from CCU to telemetry floor Comprehensive echocardiogram ordered Duplex ultrasound of the bilateral lower extremities ordered Start warfarin with dose per pharmacy. Patient unable to tolerate a DOAC due to concomitant use of carbamazepine Continue therapeutic enoxaparin 90 mg twice daily for now with plan to transition to warfarin for long-term anticoagulation Monitor on telemetry Patient discussed with Dr. Whitaker. The plan is considered preliminary until co-signed by the attending physician. Subjective No acute events overnight. Patient seen and examined at bedside. Patient resting comfortably, in no acute distress. Patient reports persistent pleuritic chest pain when he lies flat. Patient otherwise without complaints. Objective Telemetry Reviewed: Normal Sinus Rhythm Last Vitals Pulse:(!) 101,Resp:(!) 28,BP:(!) 145/77,SpO2:96 %,Weight:86.2 kg (190 lb 0.6 oz) Temp Last 24 hrs: Temp Min: 95.6 ??F (35.3 ??C) Max: 97.8 ??F (36.6 ??C) Intake/Output Summary (Last 24 hours) at 02/29/2024 1409 Last data filed at 02/29/2024 1200 Gross per 24 hour Intake 1071.51 ml Output 1660 ml Net -588.49 ml Physical Examination General: Elderly male. Well-developed. Well-nourished. Resting comfortably. In no acute distress. HEENT: Normocephalic, atraumatic. Mucous membranes moist. Cardiovascular: Regular rate. Regular rhythm. No murmurs, gallops, or rubs. Respiratory: Breathing unlabored on room air. Adequate respiratory effort. Clear to auscultation. No wheezes, rhonchi, or rales. Skin: Warm, dry. Neurologic: Awake. Alert. No gross focal deficits. Moves all four extremities spontaneously. Psych: Mood and affect appropriate. Medications Medications Scheduled Medication Ordered Dose/Rate, Route, Frequency Last Action ascorbic acid (VITAMIN C) tablet 1,000 mg 1,000 mg, PO, Daily Given, 1,000 mg at 02/29 828 atorvastatin (LIPITOR) tablet 20 mg 20 mg, PO, Nightly Ordered carBAMazepine (TEGretol) tablet 400 mg 400 mg, PO, Nightly Ordered chlorhexidine (PERIDEX) 0.12 % oral solution 15 mL 15 mL, MT, BID Given, 15 mL at 02/27 2118 cyclobenzaprine (FLEXERIL) tablet 10 mg 10 mg, PO, Nightly Ordered DULoxetine (CYMBALTA) capsule 30 mg 30 mg, PO, Nightly Ordered DULoxetine (CYMBALTA) capsule 60 mg 60 mg, PO, Nightly Ordered enoxaparin (LOVENOX) syringe 90 mg 1 mg/kg, SC, Q12H Ordered gabapentin (NEURONTIN) capsule 300 mg 300 mg, PO, Nightly Ordered levothyroxine (SYNTHROID, LEVOTHROID) tablet 50 mcg 50 mcg, PO, Daily 6AM Given, 50 mcg at 02/28 539 lidocaine (LIDODERM) 5 % patch 2 patch 2 patch, TD, Daily Patch Applied, 2 patch at 02/29 828 [Provider Held] metoPROLOL TARTRATE (LOPRESSOR) tablet 25 mg On hold since today at 1339 until manually unheld; held by Dedrick Yen Reason: Other - Comment requiredHold Comments: He uses it for A-fib will hold in setting of PE On hold since today at 1339 until manually unheld Hold reason: Other - Comment required, Hold comment: He uses it for A-fib will hold in setting of PE 25 mg, PO, Q12H GE Ordered PANTOprazole (PROTONIX) EC tablet 40 mg 40 mg, PO, BID Given, 40 mg at 02/28 0829 potassium phosphate and sodium phosphate (K PHOS NEUTRAL) tablet 250 mg 250 mg, PO, With meals & nightly Ordered senna-docusate (SENNA-S) 8.6-50 MG tablet 2 tablet 2 tablet, PO, Nightly Given, 2 tablet at 02/27 2118 topiramate (TOPAMAX) tablet 25 mg 25 mg, PO, BID Ordered warfarin (COUMADIN) DOSING PROTOCOL by PHARMACY No Dose/Rate, Protocol, Pharmacy Protocol Orders Ordered warfarin (COUMADIN) tablet 7.5 mg 7.5 mg, PO, Once Ordered Continuous Medication Ordered Dose/Rate, Route, Frequency Last Action patient own IMPLANTED pump No Dose/Rate, TI, Continuous Ordered PRN Medication Ordered Dose/Rate, Route, Frequency Last Action bisacodyl (DULCOLAX) suppository 10 mg 10 mg, RE, Daily PRN Ordered lactulose (ENULOSE) 10 gm/15 mL solution 20 g 30 mL, PO, Q4H PRN Ordered naloxone (NARCAN) 0.4 mg/mL injection 0.4 mg 0.4 mg, IV, Q5 Min PRN Ordered Relevant Data Reviewed Laboratory Studies Results from last 7 days Lab Units 02/29/24 0444 02/28/24 2113 02/28/24 2047 02/28/24 1608 SODIUM mmol/L 141 138 -- 141 POTASSIUM mmol/L 3.9 3.9 -- 4.6 CHLORIDE mmol/L 111* 107 -- 108* CO2 mmol/L 18* 18* -- 20* BUN mg/dL 15 15 -- 18 CREATININE mg/dL 1.0 1.1 -- 1.1 CALCIUM mg/dL 8.3* 8.9 -- 9.6 GLUCOSE mg/dL 108* 114* -- 98 GLUCOSE, POC mg/dL -- -- 121* -- EGFR 83 74 -- 74 ALBUMIN g/dL -- -- -- 3.9 PROTEIN, TOTAL g/dL -- -- -- 7.5 BILIRUBIN TOTAL mg/dL -- -- -- 0.3 ALK PHOS U/L -- -- -- 134* ALT U/L -- -- -- 30 AST U/L -- -- -- 28 Lab Results Component Value Date MG 2.3 02/29/2024 Results from last 7 days Lab Units 02/29/24 0444 02/28/24 2113 02/28/24 1608 WHITE BLOOD CELL COUNT Thou/uL 9.5 13.9* 12.5* HEMOGLOBIN g/dL 11.0* 12.4* 13.6 HEMATOCRIT % 33.7* 38.4* 41.7 PLATELET COUNT Thou/uL 119* 141* 144* NEUTROS PCT % -- -- 76.5 LYMPHS PCT % -- -- 14.7 MONOS PCT % -- -- 6.3 EOS PCT % -- -- 0.5 BASOS PCT % -- -- 0.2 Lab Results Component Value Date HSTNT 211 () 02/29/2024 HSTNT 302 () 02/28/2024 HSTNT 264 () 02/28/2024 Lab Results Component Value Date PROBNP 180 (H) 02/28/2024 Imaging Studies All appropriate imaging studies within the past 24 hours reviewed (actual images) No results found. Sign Billie Gray DO Principal Automation Engineer 02/29/2024 2:09 PM Available via [facility] Text 04/09 at Principal Automation Engineer Consult Service Associated attestation - Elpidio Whitaker MD - 02/29/2024 4:09 PM EST Please see attestation on separate note from same day. * Aimee FairbanksD - 02/29/2024 11:59 AM EST Pharmacy requested for interrogation of patient's own intrathecal fentanyl pump. The following settings/information were identified 02/29/24: Make - SynchroMed III; Model # 8667-20; Serial # [id number] Medication(s): 60 mcg/mL (No secondary medications) Next fill due before: 03/28/2024 Low reservoir alarm volume: 2 mL Current reservoir volume: 17.7 mL (28 day supply if pump were to run dry) Total daily dose: 2.894 mcg / 24 hr No pump failures identified in logs. Order placed in [facility] for patient own implantable pump. If patient goes for MRI, please contact pharmacy to confirm pump restarts following imaging procedure. Please reach out to pharmacy pain service with any additional questions if needed. * Irvin Gutiérrez MD - 02/29/2024 11:02 AM EST Images from the original note were not included. [facility] CRITICAL CARE RESIDENT PROGRESS NOTE LOS: 1 CODE:: Code Status Procedures Full code Subjective Patient resting in bed comfortably this a.m., does not report any new complaints No acute events overnight LOS: 1 day Assessment and Plan Problem List Principal Problem: 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) (POA: Yes) Resolved Problems: Assessment Karen Gordon 68 y.o. w/ PMH significant for chronic back pain s/p intrathecal fentanyl pump placement, Bipolar disorder, spondylitis spondylosis, GERD, HLD, Hypothyroidism, Hx of DVT admitted on 02/28/2024 for bilateral pulmonary emboli s/p aspiration thrombectomy Plan by system NEUROLOGY: #Bipolar disorder -resumed home nightly carbamazepine #Spondylitis - patient has intrathecal fentanyl pump - reordered duloxetine, gabapentin RESPIRATORY #AHRF in setting of PE -Continue nasal cannula supplementation as needed. CARDIOVASCULAR #Saddle Pulmonary Embolus Patient presented with saddle pulmonary embolus, troponins peaked at 302 trended down to 211, lactic acid peaked at 2.6, trended down to 1.7, was taken to Proposal Rep for mechanical thrombectomy. PA pre-intervention: 53/29 (38), Post Intervention: (22) -Will obtain comprehensive echocardiogram -Will obtain bilateral lower extremity venous duplex -Anticoagulation per heme-onc section GASTROENTEROLOGY #GERD - on PO Protonix Nutrition Diet/Nutrition Received: 2 gram sodium, low saturated fat/low cholesterol Diet Cardiac; 2 gm NA (Low Sodium); Low Fat (50gmfat, Low Chol, Low Sat Fat) NEPHROLOGY #Lactic acidosis (resolved) -Patient had lactic acidosis had a left saddle PE, downtrended and cleared. Intake & Output Intake/Output Summary (Last 24 hours) at 02/29/2024 1104 Last data filed at 02/29/2024 1000 Gross per 24 hour Intake 1071.51 ml Output 1360 ml Net -288.49 ml ENDOCRINOLOGY #Hypothyroidism - Restarted home synthroid 50 mcg Sunday- Sunday, synthroid 25 mcg Sunday/Sunday HEMATOLOGY/ ONCOLOGY #Anticoagulation for saddle PE Patient history of DVT in 2023, and now has saddle PE, he will need lifelong anticoagulation unlessthere is any other contraindication in the future. He transitioned to Lovenox at 1 AM this morning on 02/28, and this afternoon 02/28 at 1 PM, will receive his first dose of Eliquis -Will continue anticoagulation with Eliquis INFECTIOUS DISEASE ANDREW Pt seen and discussed w/ Dr Elpidio Whitaker MD ICU Check-list Code: Code Status Procedures Full code Lines: Peripheral IV - Single Lumen (Adult) 02/28/24 1608 median vein (underside of arm), right 20 gauge (Active) Number of days: 1 Peripheral IV - Single Lumen (Adult) 02/29/24 0221 cephalic vein (lateral side of arm), left (Active) Number of days: 0 Enteric Access and Flanagan: Flanagan: not indicated GI ppx: on home protonix DVT PPx: is anti-coagulated on eliquis IMPROVE SCORE: Mobility: Progressive Mobility Level Achieved: Level 0,PT/OT: Yes Dispo: Medicine floors with telemetry Family update: unable to reach Arlin Gordon x2 Objective Last Vitals Pulse:(!) 101,Resp:(!) 31,BP:110/63,SpO2:97 %,Weight:86.2 kg (190 lb 0.6 oz) Temp Last 24 hrs: Temp Min: 95.6 ??F (35.3 ??C) Max: 97.8 ??F (36.6 ??C) Last temp: 96.9 ??F (36.1 ??C) (Tympanic) Intake/Output Summary (Last 24 hours) at 02/29/2024 1104 Last data filed at 02/29/2024 1000 Gross per 24 hour Intake 1071.51 ml Output 1360 ml Net -288.49 ml Physical Exam Constitutional: Appearance: Normal appearance. Cardiovascular: Rate and Rhythm: Normal rate and regular rhythm. Pulses: Normal pulses. Heart sounds: Normal heart sounds. Pulmonary: Effort: Pulmonary effort is normal. Breath sounds: Normal breath sounds. Abdominal: General: Abdomen is flat. Palpations: Abdomen is soft. Musculoskeletal: General: Normal range of motion. Right lower leg: No edema. Left lower leg: No edema. Comments: Femoral catheterization site Clean and dry Dressing in place Skin: General: Skin is warm and dry. Capillary Refill: Capillary refill takes less than 2 seconds. Neurological: General: No focal deficit present. Mental Status: He is alert and oriented to person, place, and time. LABS: Results from last 7 days Lab Units 02/29/24 0444 02/28/24211202/28/24 1608 WHITE BLOOD CELL COUNT Thou/uL 9.5 13.9* 12.5* HEMOGLOBIN g/dL 11.0* 12.4* 13.6 HEMATOCRIT % 33.7* 38.4* 41.7 PLATELET COUNT Thou/uL 119* 141* 144* NEUTROS PCT % -- -- 76.5 LYMPHS PCT % -- -- 14.7 MONOS PCT % -- -- 6.3 EOS PCT % -- -- 0.5 BASOS PCT % -- -- 0.2 Recent Labs 02/28/24 1608 02/28/242112 PTT -- 60* LABPROT 12.5 13.5 INR 1.1 1.2 Recent Labs 02/28/24 1558 02/28/24 1608 02/28/24 2113 02/29/24 0129 02/29/24443 NA -- 141 138 -- 141 K -- 4.6 3.9 -- 3.9 CL -- 108* 107 -- 111* CO2 -- 20* 18* -- 18* ANIONGAP -- 13 13 -- 12 BUN -- 18 15 -- 15 CREAT -- 1.1 1.1 -- 1.0 LACTIC 2.4* -- 2.6* 1.7 -- Recent Labs 02/28/24 1608 AST 28 ALT 30 ALKPHOS 134* BILITOT 0.3 BILIDIR <0.1 ALBUMIN 3.9 PROT 7.5 No results for input(s): PHA , PCO2 , PO2 , HCO3 in the last 72 hours. Recent Cultures:No results found for: CULTURE IMAGING: Endovascular Procedure Result Date: 02/28/2024 Table formatting from the original result was not included. Images from the original result were not included. [facility] [place] [facility] - Cardiac Catheterization Laboratory [facility] [place] [facility] - Cardiac Catheterization Laboratory PATIENT DEMOGRAPHIC INFORMATION Name: Karen Gordon : 1955 68 y.o. Sex: male Gender: male Procedure Date: 02/28/2024 PROCEDURE DETAILS Mill Set Up: Jerry Plata MD Fellow: MD Alla Gallegos MD Omar Yacob, MBBS General Assignment Reporter(s): none Indications for Procedure: Pulmonary embolism Referring Physician: Charles Fenton PCP: Bonilla Grant MD Procedure(s): Procedures: * ARTERIOGRAPHY PULMONARY SELECT-BILAT * RIGHT HEART CATH, CORONARY ANGIOGRAM * THROMBECTOMY CONCLUSIONS/RECOMMENDATIONS S/p large bore mechanical thrombectomy with removal of significantthrombus Reduction in mean PA pressures from 38 mm Hg to 22 mm Hg Continue therapeutic enoxaparin, anticipate transition to DOAC tomorrow Formal echocardiogram, LE dopplers pending PROCEDURE FINDINGS Pressures Site RA 13 mmHg/9 mmHg (9 mmHg) RV 39 mmHg/21 mmHg 20 mmHg PA Pre Intervention: 53/29 (38) Post Intervention:33 mmHg/14 mmHg (22 mmHg) O2 Sats RA 44.1 % PA 48 % AO 98 % Cardiac Output/Resistances: CO = 2.76 L/min ; CI = 1.4 L/min/kg2 QS = 2.76 Tracings available in [facility] log report CLINICAL HISTORY 64-year-old male presents to the hospital shortness of breath found to have intermediate risk pulmonary embolism with risk enhancing features. PROCEDURE Informed consent was obtained; a procedural timeout was performed; the patient was prepped and draped in sterile fashion; Access: Right femoral vein Sheath: 24F Cymro Under ultrasound guidance the right femoral vein was accessed with a 7F sheath. The vein was preclosed. A right heart catheterization was performed with a [place] Ritchie Catheter. A pigtail was used to perform selective right and left pulmonary angiography.The right pulmonary artery was selected with a 0.035 J-wire. We then exchanged out the 0.035 for an Amplatz Superstiff wire. We dilated the right femoral vein site and inserted a 24Fr sheath. We then inserted theFlowtreiver 24fr catheter and performed aspiration thrombectomy of [...] and Associated Flowsheet Values (last 24 hours) Date/Time Action Medication Dose 02/28/241921 Given iohexol (OMNIPAQUE) 350 mg/mL injection 120 mL Estimated Blood Loss: 10 mL Verbal Orders and Supervisory Attestation: As the [...] this patient that I request from a [facility] PA/AUTOMOTIVE EXHAUST EMISSIONS TECHNICIAN/fellow/staff member. Jerry Plata MD [facility] [place] 02/28/2024 7:34 PM CARDIAC CATHETERIZATION Result Date: 02/28/2024 Table formatting from the original result was not included. Images from the original result were not included. [facility] [place] at [facility] - Cardiac Catheterization Laboratory [facility] [place] [facility] - Cardiac Catheterization Laboratory PATIENT DEMOGRAPHIC INFORMATION Name: Karen Gordon : 1955 68 y.o. Sex: male Gender: male Procedure Date: 02/28/2024 PROCEDURE DETAILS Mill Set Up: Jerry Plata MD Fellow: MD Alla Gallegos MD Omar Yacob, MBBS General Assignment Reporter(s): none Indications for Procedure: Pulmonary embolism Referring Physician: Charles Fenton PCP: Bonilla Grant MD Procedure(s): Procedures: * ARTERIOGRAPHY PULMONARY SELECT-BILAT * RIGHT HEART CATH, CORONARY ANGIOGRAM * THROMBECTOMY CONCLUSIONS/RECOMMENDATIONS S/p large bore mechanical thrombectomy with removal of significantthrombus Reduction in mean PA pressures from 38 mm Hg to 22 mm Hg Continue therapeutic enoxaparin, anticipate transition to DOAC tomorrow Formal echocardiogram, LE dopplers pending PROCEDURE FINDINGS Pressures Site RA 13 mmHg/9 mmHg (9 mmHg) RV 39 mmHg/21 mmHg 20 mmHg PA Pre Intervention: 53/29 (38) Post Intervention:33 mmHg/14 mmHg (22 mmHg) O2 Sats RA 44.1 % PA 48 % AO 98 % Cardiac Output/Resistances: CO = 2.76 L/min ; CI = 1.4 L/min/kg2 QS = 2.76 Tracings available in [employer] log report CLINICAL HISTORY 64-year-old male presents to the hospital shortness of breath found to have intermediate risk pulmonary embolism with risk enhancing features. PROCEDURE Informed consent was obtained; a procedural timeout was performed; the patient was prepped and draped in sterile fashion; Access: Right femoral vein Sheath: 24F Cymro Under ultrasound guidance the right femoral vein was accessed with a 7F sheath. The vein was preclosed. A right heart catheterization was performed with a [place] Ritchie Catheter. A pigtail was used to perform selective right and left pulmonary angiography.The right pulmonary artery was selected with a 0.035 J-wire. We then exchanged out the 0.035 for an Amplatz Superstiff wire. We dilated the right femoral vein site and inserted a 24Fr sheath. We then inserted theFlowtreiver 24fr catheter and performed aspiration thrombectomy of [...] and Associated Flowsheet Values (last 24 hours) Date/Time Action Medication Dose 02/28/241921 Given iohexol (OMNIPAQUE) 350 mg/mL injection 120 mL Estimated Blood Loss: 10 mL Verbal Orders and Supervisory Attestation: As the [...] this patient that I request from a [facility] PA/AUTOMOTIVE EXHAUST EMISSIONS TECHNICIAN/fellow/staff member. Jerry Plata MD [facility] [place] 02/28/2024 7:34 PM ERROL Archive for reference only CT Result Date: 02/28/2024 This order has been auto-finalized and does not contain a result. ERROL Archive for reference only CR Result Date: 02/28/2024 This order has been auto-finalized and does not contain a result. ERROL Archive for reference only CT Result Date: 02/28/2024 This order has been auto-finalized and does not contain a result. Sign Irvin Gutiérrez MD PGY-2 Internal Medicine, [facility] Available on [facility] Text Associated attestation - Elpidio Whitaker MD - 02/29/2024 12:48 PM EST I have personally interviewed and examined the patient and reviewed Dr. Gutiérrez's note. I agree with the history, exam, assessment, and plan as detailed in the Resident/Fellow's note with the followingadditions/exceptions/observations. Brief Review: Karen Gordon is a 68-year-old gentleman with a past medical history of multiple disc issues in his spine status post intrathecal fentanyl pump, GERD, hypothyroidism, possible history of DVT, bipolar disorder who presented on 02/27 with extreme dyspnea. He was found to have bilateral pulmonary emboli with evidence of shock. He underwent aspiration thrombectomy with immediate reduction in PA pressures and improvement in hemodynamics. SCAI Stage A Overall Assessment: Doing very well today. No longer tachycardic. No oxygen requirement. He is acceptable for transfer to floors with telemetry Plan: Obtain transthoracic echocardiogram Obtain lower extremity duplex ultrasound Replenish Phos Anticoagulated with enoxaparin plan to transition to warfarin as he is unable to take apixaban or rivaroxaban as they are contraindicated with his carbamazepine Can transfer out of the cardiac ICU to floors with telemetry Continue home levothyroxine, gabapentin, pantoprazole, duloxetine, carbamazepine, and atorvastatin The ICU bundle was reviewed at the bedside during rounds. Lines: No invasive lines I personally reviewed: No new imaging today This patient is critically ill due to: Obstructive shock, pulmonary embolism I have spent 45 minutes of critical care time directly on patient care today, excluding procedures. Elpidio Whitaker M.D. 02/29/2024 * Edward Stearns RN - 02/29/2024 8:11 AM EST 02/29/24 0800 General Information Admission Type inpatient Arrived From Hospital ([facility]) Referral Source admission list Reason for Consult discharge planning Initial Information How to be Addressed [place] Source of Information patient;health record Stated Reason for Admission PE Temporary Family Living Arrangements (While Hospitalized) none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 transfer from outside hospital for further management of saddle PE. Continues on telemetry monitoring and pox. Tachycardic with mild exertion, to 130s. MD made aware, no new orders for the moment. patient had ECHO today, tolerated well. Problems' list: Acute hypoxic respiratory failure, improved Pulmonary embolus, bilateral s/p aspiration thrombectomy on 02/28/2024 Hypophosphatemia, resolved Elevated troponin, likely in the setting of demand ischemia Lactic acidosis, resolved GERD Bipolar disorder Hypothyroidism Spondylitis/chronic pain/on intrathecal fentanyl pump PLAN: -Telemetry monitoring -Patient is s/p aspiration thrombectomy with improvement in pulmonary artery pressure and hemodynamics. -Patient started on warfarin with bridging Lovenox. Continue on therapeutic Lovenox 90 mg twice daily until reaches to target level of INR 2-3. Warfarin to dose per pharmacy. Patient cannot be on DOAC given he is on carbamazepine. -Echocardiogram and duplex ultrasound of bilateral lower extremity to be followed --Metoprolol is currently on hold given that he is in sinus rhythm, rate controlled. Will eventually resume metoprolol as indicated. -Continue on home medications including topiramate, gabapentin, carbamazepine, pantoprazole, cyclobenzaprine, duloxetine, atorvastatin. -Patient is on intrathecal pain pump-fentanyl -Monitor labs closely -Symptomatic and supportive care -PT/OT Vitals: 02/29/24 0900 02/29/24 1000 02/29/24 1100 02/29/24 1200 BP: 137/69 110/63 110/71 Pulse: 93 (!) 101 97 (!) 103 Resp: (!) 28 (!) 31 15 (!) 31 Temp: 97 ??F (36.1 ??C) SpO2: 97% 97% 96% 94% 02/29/24 1300 02/29/24 1400 02/29/24 2033 03/01/24 0552 BP: (!) 145/77 115/70 121/84 110/77 Pulse: (!) 101 (!) 103 (!) 102 91 Resp: (!) 28 (!) 36 (!) 21 20 Temp: 96.4 ??F (35.8 ??C) 97.8 ??F (36.6 ??C) SpO2: 96% 97% 97% 95% Meds/Treatments: Scheduled Meds: vitamin C, 1,000 mg, Oral, Daily atorvastatin, 20 mg, Oral, Nightly carBAMazepine, 400 mg, Oral, Nightly chlorhexidine, 15 mL, Mouth/Throat, BID cyclobenzaprine, 10 mg, Oral, Nightly DULoxetine, 90 mg, Oral, Nightly enoxaparin (LOVENOX) injection for treatment, 1 mg/kg, Subcutaneous, Q12H gabapentin, 300 mg, Oral, Nightly levothyroxine, 50 mcg, Oral, Daily 6AM lidocaine, 2 patch, Transdermal, Daily [Provider Held] metoPROLOL TARTRATE, 25 mg, Oral, Q12H GE PANTOprazole, 40 mg, Oral, BID senna-docusate, 2 tablet, Oral, Nightly topiramate, 25 mg, Oral, BID warfarin, , Pharmacy Protocol Orders, Pharmacy Protocol Orders warfarin, 7.5 mg, Oral, Once Continuous Infusions: Infusions Meds patient own IMPLANTED pump, PRN Meds: PRN Medications bisacodyl lactulose naloxone Labs/Diagnostics: 03/01/24 08:37 White Blood Cell Count 9.9 Red Blood Cell Count 4.22 (L) Hemoglobin 13.3 Hematocrit 40.7 MCV 96 MCH 31.5 (H) MCHC 32.7 RDW 13.2 Platelet Count 163 MPV 9.9 Sodium 145 Potassium 3.6 Chloride 107 CO2, POC 22 Anion Gap 16 BUN 18 Creatinine 1.3 Bun / Creat Ratio 14 Glucose 127 (H) Calcium 9.1 Magnesium 2.0 eGFR 61 Phosphorus 2.9 Anticoagulant WARFARIN (COUMADIN) Prothrombin Time 12.5 INR 1.1 ECHOCARDIOGRAM TTE: The left ventricle is small. Left ventricular systolic function is normal. The quantitative EF by 2D Prather biplane is 69%. The right ventricle is normal in size. Right ventricular systolic function is normal with hypokinesis of the mid free wall. There is trace tricuspid regurgitation. The estimated right ventricular systolic pressure is mildlyelevated at 37 mmHg. Bed Type: Telemetry D/C Plan: Ongoing Sign Joceline Singh RN 03/04/2024 11:28 AM Continued Stay Review Date: 03/02/2024 Clinical Update: Karen Gordon is a 68 year-old male, who is a transfer from outside hospital for further management of saddle PE. Problem list: Acute hypoxic respiratory failure Pulmonary embolus, bilateral s/p aspiration thrombectomy on 02/28/2024 Rt LE Acute DVT Hypophosphatemia Elevated troponin, likely in the setting of demand ischemia Lactic acidosis GERD Bipolar disorder Hypothyroidism Spondylitis/chronic pain/on intrathecal fentanyl pump PLAN: -Telemetry monitoring -Patient is s/p aspiration thrombectomy with improvement in pulmonary artery pressure and hemodynamics. -Patient started on warfarin with bridging Lovenox. Continue on therapeutic Lovenox 90 mg twice daily until reaches to target level of INR 2-3. Today INR is 1.2. Warfarin to dose per pharmacy. Patient cannot be on DOAC given he is on carbamazepine. -Echocardiogram shows normal right ventricular function with hypokinesis of mid free wall. -duplex ultrasound of bilateral lower extremity shows Rt LE Acute DVT -- Patient has sinus tachycardia in 100s and worse with minimal activity, will initiate low-dose metoprolol tartrate 12.5 Mg twice daily. -Continue on home medications including topiramate, gabapentin, carbamazepine, pantoprazole, cyclobenzaprine, duloxetine, atorvastatin. -Patient is on intrathecal pain pump-fentanyl -Monitor labs closely -Symptomatic and supportive care -PT/OT Vitals: 03/02/24 2045 96.9 (36.1) 76 18 132/88 98 room air (none) 03/02/24 1615 96.7 (35.9) 65 -- 150/80 Abnormal 100 -- 03/02/24 0638 96.4 (35.8) 95 18 126/83 94 room air (none) Meds/Treatments: Scheduled Meds: vitamin C, 1,000 mg, Oral, Daily atorvastatin, 20 mg, Oral, Nightly carBAMazepine, 400 mg, Oral, Nightly chlorhexidine, 15 mL, Mouth/Throat, BID cyclobenzaprine, 10 mg, Oral, Nightly DULoxetine, 90 mg, Oral, Nightly enoxaparin (LOVENOX) injection for treatment, 1 mg/kg, Subcutaneous, Q12H gabapentin, 300 mg, Oral, Nightly levothyroxine, 50 mcg, Oral, Daily 6AM lidocaine, 2 patch, Transdermal, Daily [Provider Held] metoPROLOL TARTRATE, 25 mg, Oral, Q12H GE PANTOprazole, 40 mg, Oral, BID senna-docusate, 2 tablet, Oral, Nightly topiramate, 25 mg, Oral, BID warfarin, , Pharmacy Protocol Orders, Pharmacy Protocol Orders warfarin, 7.5 mg, Oral, Once Continuous Infusions: Infusions Meds patient own IMPLANTED pump, PRN Meds: PRN Medications bisacodyl lactulose naloxone Labs/Diagnostics: 03/02/24 07:24 White Blood Cell Count 7.8 Red Blood Cell Count 3.90 (L) Hemoglobin 12.2 (L) Hematocrit 37.6 (L) MCV 96 MCH 31.3 (H) MCHC 32.4 RDW 13.2 Platelet Count 137 (L) MPV 10.0 Sodium 139 Potassium 3.9 Chloride 107 CO2, POC 19 (L) Anion Gap 13 BUN 19 Creatinine 1.3 Bun / Creat Ratio 15 Glucose 123 (H) Calcium 8.9 Magnesium 1.8 eGFR 61 Phosphorus 2.7 Anticoagulant WARFARIN (COUMADIN) Prothrombin Time 13.7 (H) INR 1.2 Bed Type: Telemetry D/C Plan: Ongoing Sign Joceline Singh RN 03/04/2024 11:28 AM Continued Stay Review Date: 03/03/2024 Clinical Update: Karen Gordon is a 68 year-old male, who is a transfer from outside hospital for further management of saddle PE. Problem list: Acute hypoxic respiratory failure Acute saddle Pulmonary embolus, bilateral s/p aspiration thrombectomy on 02/28/2024 Rt LE Acute DVT Sinus tachycardia Hypophosphatemia Elevated troponin, likely in the setting of demand ischemia Lactic acidosis GERD Bipolar disorder Hypothyroidism Spondylitis/chronic pain/on intrathecal fentanyl pump PLAN: -Telemetry monitoring -Patient is s/p aspiration thrombectomy with improvement in pulmonary artery pressure and hemodynamics. Echocardiogram shows normal right ventricular function with hypokinesis of mid free wall. Duplex ultrasound of bilateral lower extremity shows Rt LE Acute DVT. Patient was started on warfarin with bridging Lovenox. INR now thrapeutic. Lovenox discontinued. Patient cannot be on DOAC given he is on carbamazepine. Appreciate pharmacy inputs for dosing of coumadin for dc planning. - Patient has sinus tachycardia upto 120s and worse with activit despite low- dose metoprolol tartrate 12.5 Mg twice daily. Will uptitrate to metoprolol tartrate 25 Mg twice daily today. -Continue on home medications including topiramate, gabapentin, carbamazepine, pantoprazole, cyclobenzaprine, duloxetine, atorvastatin. -Patient is on intrathecal pain pump-fentanyl -Monitor labs closely -Symptomatic and supportive care -PT/OT Vitals: 03/03/24 2120 96.9 (36.1) 86 18 106/80 97 room air (none) 03/03/24 1438 98.3 (36.8) 78 -- 109/70 97 room air (none) 03/03/24 0954 -- -- -- 118/60 97 room air (none) 03/03/24 0555 96.7 (35.9) 80 18 132/76 96 room air (none) Meds/Treatments: Scheduled Meds: vitamin C, 1,000 mg, Oral, Daily atorvastatin, 20 mg, Oral, Nightly carBAMazepine, 400 mg, Oral, Nightly chlorhexidine, 15 mL, Mouth/Throat, BID cyclobenzaprine, 10 mg, Oral, Nightly DULoxetine, 90 mg, Oral, Nightly gabapentin, 300 mg, Oral, Nightly levothyroxine, 50 mcg, Oral, Daily 6AM lidocaine, 2 patch, Transdermal, Daily metoPROLOL TARTRATE, 25 mg, Oral, Q12H GE PANTOprazole, 40 mg, Oral, BID senna-docusate, 2 tablet, Oral, Nightly topiramate, 25 mg, Oral, BID warfarin, , Pharmacy Protocol Orders, Pharmacy Protocol Orders Continuous Infusions: Infusions Meds patient own IMPLANTED pump, PRN Meds: PRN Medications bisacodyl lactulose naloxone Labs/Diagnostics: 03/03/24 08:11 White Blood Cell Count 8.3 Red Blood Cell Count 3.89 (L) Hemoglobin 12.3 (L) Hematocrit 38.4 (L) MCV 99 MCH 31.6 (H) MCHC 32.0 RDW 13.2 Platelet Count 168 MPV 10.2 Sodium 139 Potassium 4.3 Chloride 103 CO2, POC 23 Anion Gap 13 BUN 15 Creatinine 1.4 (H) Bun / Creat Ratio 11 Glucose 151 (H) Calcium 9.0 Magnesium 1.8 eGFR 55 (L) Phosphorus 3.0 Anticoagulant WARFARIN (COUMADIN) Prothrombin Time 27.3 (H) INR 2.4 Bed Type: Telemetry D/C Plan: Ongoing Sign Joceline Singh RN 03/04/2024 11:28 AM * Plan of Care - Ara Johnson RN - 03/04/2024 5:03 AM EST Plan of Care Reviewed With: patient Progress: no change Patient is alert and oriented x 4. Denies pain and in no acute distress overnight. Up ad jose in room and on unit. Slept between care Ara Johnson 03/04/2024 5:03 AM * Plan of Care - Nell Lima RN - 03/03/2024 5:33 PM EST Problem: Adult Inpatient Plan of Care Goal: Plan of Care Review Flowsheets (Taken 03/03/2024 1730) Outcome Evaluation: Pt alert oriented x4 denies pain or sob pt has steady gait no reports of dizziness or lightheadness oob independently gamemaster : NSR first Degree HB . His hr gets elevated with activity between 120 to 140 but it does not sustain . Pt reported one loose BM this evening .Dr Messer was made aware of all above mentioned pt continues on schedule po lopressor . He reported having another loose bowel movement and flushed it . Nursing staff did not see it . Hospitalist Caitie Simpson was made aware . Pt was instructed to place stool in Hat container the next time he goes and let RN know . HS dose of Stool softeners were not administered due to loose bm's . . * Plan of Care - Alberta Duron RN - 03/03/2024 3:33 PM EST Pt alert and oriented X4. Denied pain. Given medication per MAR. VSS. NS on tele. No acute distress. Independent in the room. Safety maintained. Alberta Duron 03/03/2024 3:33 PM * Hospital Course - Mariah Messer MD - 03/03/2024 10:36 AM EST Mr. Gordon is a 68 y.o. male, who was transfered from outside hospital for further management of saddle PE. Patient underwent aspiration thrombectomy with improvement in pulmonary artery pressure andhemodynamics. He was kept on telemetry monitoring which showed sinus tachycardia. Patient was started on warfarin with bridging Lovenox. Warfarin was being dosed by pharmacy. Lovenox discontinued once INR was therapeutic. Patient cannot be on DOAC given he is on carbamazepine. Echocardiogram showsnormal right ventricular function with hypokinesis of mid free wall. Duplex ultrasound of bilaterallower extremity shows Rt LE Acute DVT. Patient had sinus tachycardia upto 120s, worse with activity. He was started on metoprolol tartrate which was uptitrated to 25 Mg twice daily today. Needs echo in 3 months to monitor RV pressures. Patient is continued on home medications including topiramate, gabapentin, carbamazepine, pantoprazole, cyclobenzaprine, duloxetine, atorvastatin. Patient is on intrathecal pain pump-fentanyl. He wasalso evaluated by PT/OT. He needs INR follow up in next 2-3 days and then weekly. Being discharged on coumadin 5 mg daily. He will need to follow up with his PCP within 1 week of discharge. Patient has been made well aware that he will have a prescription for only 1 week at discharge. Problem list: Acute hypoxic respiratory failure, resolved Acute saddle Pulmonary embolus, bilateral s/p aspiration thrombectomy on 02/28/2024 Rt LE Acute DVT Sinus tachycardia Hypophosphatemia, resolved Elevated troponin, likely in the setting of demand ischemia Lactic acidosis, resolved GERD Bipolar disorder Hypothyroidism Spondylitis/chronic pain/on intrathecal fentanyl pump * Plan of Care - Stephania Ann RN - 03/03/2024 6:44 AM EST Problem: Adult Inpatient Plan of Care Goal: Plan of Care Review Outcome: Progressing Flowsheets (Taken 03/03/2024 0644) Outcome Evaluation: Patient is A&O x 4, VSS on RA. Denies pain. Medicated per MAR. NSR/ST on telemetry. Ambulates independently with steady gait. No acute changes to report, safety maintained. Stephania Ann 03/03/2024 6:44 AM * Plan of Care - Sandi Au RN - 03/02/2024 6:44 PM EST Problem: Adult Inpatient Plan of Care Goal: Plan of Care Review Outcome: Progressing Flowsheets (Taken 03/02/2024 1843) Plan of Care Reviewed With: patient Progress: no change Outcome Evaluation: Patient is A&O x 4, on room air, VSS. Denies pain. Medicated per MAR. NSR/ST on telemetry. Ambulatory in room and hallway independently. No acute changes to report, safety maintained. * Plan of Care - Kelsea Laureano RN - 03/02/2024 6:10 AM EST Pt aox4. Stable overnight. Occasional tachycardia noted. No distress noted. Safety maintained. Kelsea Laureano 03/02/2024 6:10 AM * Plan of Care - Ana Silva RN - 03/01/2024 6:55 PM EST Outcome Evaluation: Pt A/Ox4, on RA. continues on tele and pox. pt tachy with mild exertion, to 130s. made aware, no new orders for the moment. patient had echo today, tolerated well. medicated per MAR, safety maintined . continue iwth POC> Ana Silva 03/01/2024 6:55 PM * Plan of Care - Kelsea Laureano RN - 03/01/2024 6:04 AM EST Pt stable with no acute changes overnight. Safety maintained. Kelsea Laureano 03/01/2024 6:04 AM * Plan of Care - Faiza Adkins RN - 02/29/2024 7:54 PM EST Plan of Care Reviewed With: patient Progress: no change Outcome Evaluation: ssumed care 1500 to 1900. VSS on RA. Tele monitoring initiated. Pt off unit w/ nurse for testing. Fentanyl pump present - not active. Independent in room. Bed alarm refused. Skin check complete. Medicated per MAR. Safety maintained. Faiza Adkins 02/29/2024 7:54 PM * Plan of Care - Faiza Campos RN - 02/29/2024 3:03 PM EST Plan of Care Reviewed With: patient Outcome Evaluation: Transferred to [facility] with belongings. Safety maintained. Faiza Campos 02/29/2024 3:03 PM * Plan of Care - Irvin Gutiérrez MD - 02/29/2024 1:56 PM EST Medication list: Metoprolol 25 mg BID - on hold currently Topiramate 25 mg BID Gabapentin 300 mg nightly Carbamazepine 400 mg nightly Pantoprazole 40 mg BID Cyclobenzaprine 10 mg nightly Duloxetine 30mg + 60 mg nightly Atorvastatin- 20 mg daily Levothyroxine 50 mcg form Sunday to Sunday, 25 mcg on sat and sun Intrathecal pain pump - fentanyl * Critical Care Communication - Irvin Gutiérrez MD - 02/29/2024 11:27 AM EST Critical Care Communication This is a communication tool to be used by providers for patients in the ICU. This note is not part of the patient's legal medical record but all documentation can be tracked and audited. Patient Demographics KAREN GORDON 1955 68 y.o. Allergies Allergen Reactions Oxycontin [Oxycodone] Delirium/Confusion/Psychosis Bactrim [Sulfamethoxazole-Trimethoprim] Other (See Comments) Arrhythmia Reason for admission: saddle pulmonary embolus Hospital course of events: Pt is a 68 YOM with a PMH of chronic back pain s/p intrathecal fentanyl pump placement, Bipolar disorder, spondylitis spondylosis who initially presented to an OSH for shortness of breath.Per pt report, he was already en route to the OSH for an outpatient appointment when he began to develop shortness of breath, a CTA was completed which revealed bilateral pulmonary embolism, and he was categorized as a high risk PE via s-PESI, so he was transferred to for further management. Upon arrival to, transferred to botany laboratory assistant for emergent mechanical aspiration thrombectomy. After which patientwas seen to have drastic reduction in PA pressures from PA pre-intervention: 53/29 (38), to Post Int ervention: 33/14 (22). Overnight on 02/27, patient seen to have improvement in hemodynamic parameters, stable blood pressure, lactic acid and troponin trended down and cleared. On the morning of 02/28,patient remained hemodynamically stable, was intermittently on 2 L NC cannula, and was deemed to bestable to be transferred to the floor on anticoagulation with lovenox bridgin to warfarin Consults: Interventional Cardiology Procedures: Surgical/Procedural Cases on this Admission Case IDs Date Procedure Surgeon Location Status [id number] 02/28/24 ARTERIOGRAPHY PULMON[facility]KAILYN Plata MD ADULT NURSE PRACTITIONER Comp Problem list: Principal Problem: 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) (POA: Yes) Resolved Problems: Issues for follow up: - starting anti-coagulation with warfarin as eliquis/xarelto contraindicated with carbamazepine - follow up TTE - follow up venous duplex - follow up with about medication list to ensure all home meds have been resumed. Irvin Gutiérrez MD PGY-2 Internal Medicine, [facility] Available on [place] Text * Plan of Care - Edward Stearns RN - 02/29/2024 8:14 AM EST Initial Case Management Care Plan Note Assessment completed with patient and/or patient's clearance representative, medical record review and discussion with clinical team. CC met with the patient using social distancing. Provided a Case Coordination packet with contact information, CC pamphlet and Your Next Step: Care Outside the Hospital brochure to the patient and/or patient clearance representative. This technical report writer met with patient, introduced role, obtained PLOF, and started transition planning. Pt lives with , adult son in 1 story [facility] [address]. Pt is independent of all adl's and iadl's,drives,manages own medication, denies any DME. Pt declines offer for services at this time and verbalized CC will continue to follow for safe transition planning. Summary: 68 y.o. male with PMH significant for chronic back pain s/p intrathecal fentanyl pump placement, Bipolar disorder, spondylitis spondylosis, GERD, HLD, Hypothyroidism, Hx of DVT admitted on 02/28/2024 for bilateral pulmonary emboli s/p aspiration thrombectom Anticipated transition plan: home routine Caregiver/responsible person supports: himself, PCP: Libia Anticipated transportation:family Referrals made: None Barriers to discharge: ECHO,vascular study,abnormal labs,lactic acid Problem: Adult Inpatient Plan of Care Goal: Readiness for Transition of Care Outcome: Progressing Intervention: Mutually Develop Transition Plan Flowsheets (Taken 02/29/2024 0800) Equipment Currently Used at Home: none Transportation Anticipated: family or friend will provide Transportation Concerns: none Patient/Family Anticipated Services at Transition: outpatient care medical biller/coder home health care Patient/Family Anticipates Transition to: home with family * Plan of Care - TOMY Pickett - 02/29/2024 7:58 AM EST Patient is currently doing well no active complaint nausea normal cough no shortness of breath no chest pain. His blood pressure is 120 systolics and heart rates in the 70s. He currently does not endorse any shortness of breath nausea vomiting and reports much improvement in his overall symptomatology. Will recommend to continue patient on anticoagulation * Plan of Care - Bambi Vasquez RN - 02/29/2024 6:27 AM EST Outcome Evaluation: Patient admitted to [facility] at the start of this shift. Slept well. All care explained, safety maintained. Bambi Vasquez 02/29/2024 6:27 AM documented in this encounter Plan of Treatment Pending Results Name Type Priority Associated Diagnoses Date /Time WARP WORKER CARDIAC POC ULTRASOUND Imaging Routine 02/28/2024 3:56 PM EST Scheduled Orders Name Type Priority Associated Diagnoses Orde r Schedule JUAN FRANCISCO CARDIAC POC ULTRASOUND Imaging Routine Once for 1 Occur rences starting 02/28/2024 until 02/28/2024 ERROL Archive for reference only CT Imaging Routine 02/28/2024 unt il discontinued, 1 completed ERROL Archive for reference only CT Imaging Routine 02/28/2024 unt il discontinued, 1 completed ERROL Archive for reference only CR Imaging Routine 02/28/2024 unt il discontinued, 1 completed documented as of this encounter Procedures Procedure Name Priority Date/Time Associated Diagnosis Comments BASIC METABOLIC PANEL Routine 03/04/2024 12:51 PM EST PROBNP, N-TERMINAL Routine 03/04/2024 5: 56 AM EST PROTIME-INR Routine 03/04/2024 5:56 AM EST COMPLETE BLOOD COUNT, WITHOUT DIFFERENTIAL Routine 03/04/2024 5:56 AM EST PHOSPHORUS Routine 03/04/2024 5:56 AM EST MAGNESIUM Routine 03/04/2024 5:56 AM EST BASIC METABOLIC PANEL Routine 03/04/2024 5:56 AM EST PROTIME-INR Routine 03/03/2024 8:11 AM EST COMPLETE BLOOD COUNT, WITHOUT DIFFERENTIAL Routine 03/03/2024 8:11 AM EST PHOSPHORUS Routine 03/03/2024 8:11 AM EST MAGNESIUM Routine 03/03/2024 8:11 AM EST BASIC METABOLIC PANEL Routine 03/03/2024 8:11 AM EST PROTIME-INR Routine 03/02/2024 7:24 AM EST COMPLETE BLOOD COUNT, WITHOUT DIFFERENTIAL Routine 03/02/2024 7:24 AM EST PHOSPHORUS Routine 03/02/2024 7:24 AM EST MAGNESIUM Routine 03/02/2024 7:24 AM EST BASIC METABOLIC PANEL Routine 03/02/2024 7:24 AM EST ECHOCARDIOGRAM (TTE) COMPREHENSIVE (CONTRAST PRN) Routine 03/01/2024 2:41 PM EST PROTIME-INR Routine 03/01/2024 8:37 AM EST COMPLETE BLOOD COUNT, WITHOUT DIFFERENTIAL Routine 03/01/2024 8:37 AM EST PHOSPHORUS Routine 03/01/2024 8:37 AM EST MAGNESIUM Routine 03/01/2024 8:37 AM EST BASIC METABOLIC PANEL Routine 03/01/2024 8:37 AM EST VAS VENOUS DUPLEX LEG (DVT)-BILATERAL Routine 02/29/2024 4:31 PM EST COMPLETE BLOOD COUNT, WITHOUT DIFFERENTIAL Routine 02/29/2024 4:44 AM EST PHOSPHORUS Routine 02/29/2024 4:44 AM EST MAGNESIUM Routine 02/29/2024 4:44 AM EST BASIC METABOLIC PANEL Routine 02/29/2024 4:44 AM EST HIGH SENSITIVITY TROPONIN T CARD 02/29/2024 1:29 AM EST LACTIC ACID, PLASMA Routine 02/29/2024 1 :29 AM EST HIGH SENSITIVITY TROPONIN T CARD 02/28/2024 9:13 PM EST PARTIAL THROMBOPLASTIN TIME (PTT) Routine 02/28/2024 9:13 PM EST PROTIME-INR Routine 02/28/2024 9:13 PM EST COMPLETE BLOOD COUNT, WITHOUT DIFFERENTIAL Routine 02/28/2024 9:13 PM EST PHOSPHORUS Routine 02/28/2024 9:13 PM EST MAGNESIUM Routine 02/28/2024 9:13 PM EST LACTIC ACID, PLASMA Routine 02/28/2024 9 :13 PM EST BASIC METABOLIC PANEL Routine 02/28/2024 9:13 PM EST ECG 12-LEAD Routine 02/28/2024 8:52 PM EST POCT GLUCOSE, FINGERSTICK Routine 02/28/2024 8:47 PM EST ENDOVASCULAR PROCEDURE Routine 7:21 PM EST ENDOVASCULAR PROCEDURE Routine 5 7:21 PM EST CARDIAC CATHETERIZATION Routine 02/27/19 25 7:21 PM EST CARDIAC CATHETERIZATION Routine 02/27/19 25 7:21 PM EST POCT O2 SATURATION (AVOX) Routine 02/28/2024 7:13 PM EST POCT O2 SATURATION (AVOX) Routine 02/28/2024 6:37 PM EST ERROL ARCHIVE FOR REFERENCE ONLY CT Routine 02/28/2024 4:25 PM EST ERROL ARCHIVE FOR REFERENCE ONLY CR Routine 02/28/2024 4:20 PM EST ERROL ARCHIVE FOR REFERENCE ONLY CT Routine 02/28/2024 4:20 PM EST ECG 12-LEAD STAT 02/28/2024 4:14 PM EST HIGH SENSITIVITY TROPONIN T CARD 02/28/2024 4:08 PM EST PROBNP, N-TERMINAL STAT 02/28/2024 4: 08 PM EST COMPLETE BLOOD COUNT, WITH DIFFERENTIAL STAT 02/28/2024 4:08 PM EST PROTIME-INR STAT 02/28/2024 4:08 PM EST MAGNESIUM STAT 02/28/2024 4:08 PM EST HEPATIC FUNCTION PANEL STAT 4:08 PM EST BASIC METABOLIC PANEL STAT 02/28/2024 4:08 PM EST POCT GLUCOSE, FINGERSTICK Routine 02/28/2024 4:07 PM EST LACTIC ACID, PLASMA STAT 02/28/2024 3 :58 PM EST documented in this encounter Results * Basic Metabolic Panel (Routine) (03/04/2024 12:51 PM EST) Glucose 92 65 - 99 mg/dL 03/04/2024 2:38 PM [facility] Comment:Fasting: <100 mg/dL, Non-Fasting: <200 mg/dL (ADA 2005) Blood Urea Nitrogen (BUN) 16 8 - 21 mg/dL 03/04/2024 2:38 PM [facility] Creatinine 1.3 0.5 - 1.3 mg/dL 03/04/2024 2:38 PM [facility] eGFR 61 >59 03/04/2024 2:38 PM [facility] Comment:CKD-EPI (2020) in mL /min/1.73 sq meters. Sodium 140 136 - 145 mmol/L 03/04/2024 2:38 PM [facility] Potassium 4.6 3.4 - 5.3 mmol/L 03/04/2024 2:38 PM [facility] Chloride 102 98 - 107 mmol/L 03/04/2024 2:38 PM [facility] CO2 25 22 - 33 mmol/L 03/04/2024 2:38 PM [facility] Anion Gap 13 7 - 17 03/04/2024 2:38 PM [facility] Calcium 9.1 8.7 - 10.5 mg/dL 03/04/2024 2:38 PM [facility] BUN/Creatinine Ratio 12 10.0 - 25.0 Ratio 03/04/2024 2:38 PM [facility] Blood (Plasma/Serum) 03/04/2024 12:51 PM EST 03/04/2024 2:01 PM EST Mariah Messer MD LAB BLOOD ORDERABLES Performing Organization Address City/[facility] [place] [address], [place] [address] * (ABNORMAL) proBNP, N-terminal (03/04/2024 5:56 AM EST) proBNP, N-terminal 296(H) <125 pg/mL 03/04/2024 9:02 AM [facility] Plasma specimen / Unknown 03/04/2024 5:56 AM EST 03/04/2024 6:30 AM EST Mariah Messer MD LAB BLOOD ORDERABLES Performing Organization Address [facility] [place] [address], [place] [address] * (ABNORMAL) Protime-INR (03/04/2024 5:56 AM EST) Anticoagulant WARFARIN (COUMADIN) 03/03/2024 11:00 PM EST Prothrombin Time (PT) 27.7(H) 10.0 - 13.5 seconds 03/04/2024 6:43 AM [facility] INR 2.4 03/04/2024 6:43 AM [facility] Comment:INR Therapeutic Rang es: Standard dose anticoagulant 2.0 to 3.0, High dose anticoagulant 2.5-3.5. Blood Plasma specimen / Unknown 03/04/2024 5:56 AM EST 03/04/2024 6:31 AM EST Mariah Messer MD LAB BLOOD ORDERABLES Performing Organization Address [facility] [place] [address], [place] [address] * Phosphorus (Routine) (03/04/2024 5:56 AM EST) Pathologist [facility] Phosphorus 3.1 2.7 - 4.5 mg/dL 03/04/2024 7:02 AM [facility] Blood (Plasma/Serum) 03/04/2024 5:56 AM EST 03/04/2024 6:30 AM EST Mariah Messer MD [place] [address], [place] [address] * Magnesium (Routine) (03/04/2024 5:56 AM EST) [facility] Magnesium 2.0 1.6 - 2.7 mg/dL 03/04/2024 7:02 AM [facility] Blood (Plasma/Serum) 03/04/2024 5:56 AM EST 03/04/2024 6:30 AM EST Mariah Messer MD [place] [address], [place] [address] * (ABNORMAL) Basic Metabolic Panel (Routine) (03/04/2024 5:56 AM EST) [facility] Glucose 113(H) 65 - 99 mg/dL 03/04/2024 7:02 AM [facility] Comment:Fasting: <100 mg/dL, Non-Fasting: <200 mg/dL (ADA 2004) Blood Urea Nitrogen (BUN) 17 8 - 21 mg/dL 03/04/2024 7:02 AM [facility] Creatinine 1.4(H) 0.5 - 1.3 mg/dL 03/04/2024 7:02 AM [facility] eGFR 55(L) >59 03/04/2024 7:02 AM [facility] Comment:CKD-EPI (2020) in mL /min/1.73 sq meters. Sodium 141 136 - 145 mmol/L 03/04/2024 7:02 AM [facility] Potassium 5.0 3.4 - 5.3 mmol/L 03/04/2024 7:02 AM [facility] Chloride 107 98 - 107 mmol/L 03/04/2024 7:02 AM [facility] CO2 24 22 - 33 mmol/L 03/04/2024 7:02 AM [facility] Anion Gap 10 7 - 17 03/04/2024 7:02 AM [facility] Calcium 9.4 8.7 - 10.5 mg/dL 03/04/2024 7:02 AM [facility] BUN/Creatinine Ratio 12 10.0 - 25.0 Ratio 03/04/2024 7:02 AM [facility] Blood (Plasma/Serum) 03/04/2024 5:56 AM EST 03/04/2024 6:30 AM EST Mariah Messer MD LAB BLOOD ORDERABLES Performing Organization Address City/State/[facility] [place] [address], [place] [address] * (ABNORMAL) Complete Blood Count, WITHOUT Differential (routine) (03/04/2024 5:56 AM EST) White Blood Cell Count 5.8 4.0 - 11.0 Thou/uL 03/04/2024 6:35 AM [facility] Platelet Count 153 150 - 450 Thou/uL 03/04/2024 6:35 AM [facility] Hemoglobin 12.1(L) 13.0 - 17.7 g/dL 03/04/2024 6:35 AM [facility] Hematocrit 37.1(L) 39.0 - 54.0 % 03/04/2024 6:35 AM [facility] Red Blood Cell Count 3.82(L) 4.50 - 6.20 Mil/uL 03/04/2024 6:35 AM [facility] MCV 97 80 - 100 fL 03/04/2024 6:35 AM [facility] MCH 31.7(H) 27.0 - 31.0 pg 03/04/2024 6:35 AM [facility] MCHC 32.6 30.0 - 36.0 g/dL 03/04/2024 6:35 AM [facility] RDW 13.2 11.5 - 14.5 % 03/04/2024 6:35 AM [facility] MPV 10.4 7.5 - 12.5 fL 03/04/2024 6:35 AM [facility] Blood Blood specimen / Unknown 03/04/2024 5:56 AM EST 03/04/2024 6:30 AM EST Mariah Messer MD [place] [address], [place] [address] * (ABNORMAL) Protime-INR (03/03/2024 8:11 AM EST) Anticoagulant WARFARIN (COUMADIN) 03/02/2024 11:00 PM EST Prothrombin Time (PT) 27.3(H) 10.0 - 13.5 seconds 03/03/2024 9:11 AM [facility] INR 2.4 03/03/2024 9:11 AM [facility] Comment:INR Therapeutic Rang es: Standard dose anticoagulant 2.0 to 3.0, High dose anticoagulant 2.5-3.5. Blood Plasma specimen / Unknown 03/03/2024 8:11 AM EST 03/03/2024 8:44 AM EST Mariah Messer MD [place] [address], [place] [address] * Phosphorus (Routine) (03/03/2024 8:11 AM EST) Phosphorus 3.0 2.7 - 4.5 mg/dL 03/03/2024 9:22 AM [facility] Blood (Plasma/Serum) 03/03/2024 8:11 AM EST 03/03/2024 8:44 AM EST Mariah Messer MD LAB BLOOD ORDERABLES Performing Organization Address City/[facility]/[place] [address], [place] [address] * Magnesium (Routine) (03/03/2024 8:11 AM EST) Magnesium 1.8 1.6 - 2.7 mg/dL 03/03/2024 9:22 AM [facility] Blood (Plasma/Serum) 03/03/2024 8:11 AM EST 03/03/2024 8:44 AM EST Mariah Messer MD LAB BLOOD ORDERABLES Performing Organization Address [facility] [place] [address], [place] [address] * (ABNORMAL) Basic Metabolic Panel (Routine) (03/03/2024 8:11 AM EST) Glucose 151(H) 65 - 99 mg/dL 03/03/2024 9:22 AM [facility] Comment:Fasting: <100 mg/dL, Non-Fasting: <200 mg/dL (ADA 2004) Blood Urea Nitrogen (BUN) 15 8 - 21 mg/dL 03/03/2024 9:22 AM [facility] Creatinine 1.4(H) 0.5 - 1.3 mg/dL 03/03/2024 9:22 AM [facility] eGFR 55(L) >59 03/03/2024 9:22 AM [facility] Comment:CKD-EPI (2020) in mL /min/1.73 sq meters. Sodium 139 136 - 145 mmol/L 03/03/2024 9:22 AM [facility] Potassium 4.3 3.4 - 5.3 mmol/L 03/03/2024 9:22 AM [facility] Chloride 103 98 - 107 mmol/L 03/03/2024 9:22 AM [facility] CO2 23 22 - 33 mmol/L 03/03/2024 9:22 AM [facility] Anion Gap 13 7 - 17 03/03/2024 9:22 AM [facility] Calcium 9.0 8.7 - 10.5 mg/dL 03/03/2024 9:22 AM [facility] BUN/Creatinine Ratio 11 10.0 - 25.0 Ratio 03/03/2024 9:22 AM [facility] Blood (Plasma/Serum) 03/03/2024 8:11 AM EST 03/03/2024 8:44 AM EST Mariah Messer MD LAB BLOOD ORDERABLES Performing Organization Address City/State/[facility] [place] [address], [place] [address] * (ABNORMAL) Complete Blood Count, WITHOUT Differential (routine) (03/03/2024 8:11 AM EST) White Blood Cell Count 8.3 4.0 - 11.0 Thou/uL 03/03/2024 9:05 AM [facility] Platelet Count 168 150 - 450 Thou/uL 03/03/2024 9:05 AM [facility] Hemoglobin 12.3(L) 13.0 - 17.7 g/dL 03/03/2024 9:05 AM [facility] Hematocrit 38.4(L) 39.0 - 54.0 % 03/03/2024 9:05 AM [facility] Red Blood Cell Count 3.89(L) 4.50 - 6.20 Mil/uL 03/03/2024 9:05 AM [facility] MCV 99 80 - 100 fL 03/03/2024 9:05 AM [facility] MCH 31.6(H) 27.0 - 31.0 pg 03/03/2024 9:05 AM [facility] MCHC 32.0 30.0 - 36.0 g/dL 03/03/2024 9:05 AM [facility] RDW 13.2 11.5 - 14.5 % 03/03/2024 9:05 AM [facility] MPV 10.2 7.5 - 12.5 fL 03/03/2024 9:05 AM [facility] Blood Blood specimen / Unknown 03/03/2024 8:11 AM EST 03/03/2024 8:44 AM EST Mariah Messer MD LAB BLOOD ORDERABLES Performing Organization Address [facility] [place] [address], [place] [address] * (ABNORMAL) Protime-INR (03/02/2024 7:24 AM EST) Anticoagulant WARFARIN (COUMADIN) 03/01/2024 11:00 PM EST Prothrombin Time (PT) 13.7(H) 10.0 - 13.5 seconds 03/02/2024 8:44 AM [facility] INR 1.2 03/02/2024 8:44 AM [facility] Comment:INR Therapeutic Rang es: Standard dose anticoagulant 2.0 to 3.0, High dose anticoagulant 2.5-3.5. Blood Plasma specimen / Unknown 03/02/2024 7:24 AM EST 03/02/2024 8:10 AM EST Mariah Messer MD LAB BLOOD ORDERABLES Performing Organization Address [facility] [place] [address], [place] [address] * Phosphorus (Routine) (03/02/2024 7:24 AM EST) Phosphorus 2.7 2.7 - 4.5 mg/dL 03/02/2024 8:38 AM [facility] Blood (Plasma/Serum) 03/02/2024 7:24 AM EST 03/02/2024 8:10 AM EST Mariah Messer MD LAB BLOOD ORDERABLES Performing Organization Address [facility] [place] [address], [place] [address] * Magnesium (Routine) (03/02/2024 7:24 AM EST) Magnesium 1.8 1.6 - 2.7 mg/dL 03/02/2024 8:38 AM [facility] Blood (Plasma/Serum) 03/02/2024 7:24 AM EST 03/02/2024 8:10 AM EST Mariah Messer MD LAB BLOOD ORDERABLES [facility] [address] [place] [address], [place] [address] * (ABNORMAL) Basic Metabolic Panel (Routine) (03/02/2024 7:24 AM EST) Glucose 123(H) 65 - 99 mg/dL 03/02/2024 8:38 AM [facility] Comment:Fasting: <100 mg/dL, Non-Fasting: <200 mg/dL (ADA 2005) Blood Urea Nitrogen (BUN) 19 8 - 21 mg/dL 03/02/2024 8:38 AM [facility] Creatinine 1.3 0.5 - 1.3 mg/dL 03/02/2024 8:38 AM [facility] eGFR 61 >59 03/02/2024 8:38 AM [facility] Comment:CKD-EPI (2020) in mL /min/1.73 sq meters. Sodium 139 136 - 145 mmol/L 03/02/2024 8:38 AM [facility] Potassium 3.9 3.4 - 5.3 mmol/L 03/02/2024 8:38 AM [facility] Chloride 107 98 - 107 mmol/L 03/02/2024 8:38 AM [facility] CO2 19(L) 22 - 33 mmol/L 03/02/2024 8:38 AM [facility] Anion Gap 13 7 - 17 03/02/2024 8:38 AM [facility] Calcium 8.9 8.7 - 10.5 mg/dL 03/02/2024 8:38 AM [facility] BUN/Creatinine Ratio 15 10.0 - 25.0 Ratio 03/02/2024 8:38 AM [facility] Blood (Plasma/Serum) 03/02/2024 7:24 AM EST 03/02/2024 8:10 AM EST Mariah Messer MD [place] [address], [place] [address] * (ABNORMAL) Complete Blood Count, WITHOUT Differential (routine) (03/02/2024 7:24 AM EST) White Blood Cell Count 7.8 4.0 - 11.0 Thou/uL 03/02/2024 8:23 AM [facility] Platelet Count 137(L) 150 - 450 Thou/uL 03/02/2024 8:23 AM [facility] Hemoglobin 12.2(L) 13.0 - 17.7 g/dL 03/02/2024 8:23 AM [facility] Hematocrit 37.6(L) 39.0 - 54.0 % 03/02/2024 8:23 AM [facility] Red Blood Cell Count 3.90(L) 4.50 - 6.20 Mil/uL 03/02/2024 8:23 AM [facility] MCV 96 80 - 100 fL 03/02/2024 8:23 AM [facility] MCH 31.3(H) 27.0 - 31.0 pg 03/02/2024 8:23 AM [facility] MCHC 32.4 30.0 - 36.0 g/dL 03/02/2024 8:23 AM [facility] RDW 13.2 11.5 - 14.5 % 03/02/2024 8:23 AM [facility] MPV 10.0 7.5 - 12.5 fL 03/02/2024 8:23 AM [facility] Blood Blood specimen / Unknown 03/02/2024 7:24 AM EST 03/02/2024 8:10 AM EST Mariah Messer MD LAB BLOOD ORDERABLES [address] [address], [facility] [address] [place] [address] * ECHOCARDIOGRAM COMPREHENSIVE (03/01/2024 2:41 PM EST) IVS Mean (F:0.6-0.9, M:0.6-1.0) 1.2 cm IVS [...] LVOT mn grad 3.5 mmHg LVOT peak elijah mean 1.2 m/s LVOT peak elijah 1.2 m/s LVOT VTI MEAN 17.4 cm [...] AV mean gradient 7.2 mmHg Ao peak elijah mean 1.8 m/s Ao peak elijah 1.8 m/s Ao VTI Mean 23.9 cm Ao VTI 23.9 cm MV Peak A-Wave Mean 100.4 cm/s MV Peak A-Wave 100.4 cm/s E wave decelartion time mean 136 ms E wave decelartion time 136 ms MV Peak E-Wave Mean 64.6 cm/s MV Peak E-Wave 64.6 cm/s Tapse Mean 1.9 cm Tapse 1.9 cm TR Peak Elijah Mean 2.7 m/s TR Peak Elijah 2.7 m/s Ascending aorta mean 3.2 cm [...] Mariah Messer MD CV ECHO ORDERABLES * Protime-INR (03/01/2024 8:37 AM EST) Anticoagulant WARFARIN (COUMADIN) 02/29/2024 11:00 PM EST Prothrombin Time (PT) 12.5 10.0 - 13.5 seconds 03/01/2024 9:57 AM [facility] INR 1.1 03/01/2024 9:57 AM [facility] Comment:INR Therapeutic Rang es: Standard dose anticoagulant 2.0 to 3.0, High dose anticoagulant 2.5-3.5. Blood Plasma specimen / Unknown 03/01/2024 8:37 AM EST 03/01/2024 9:34 AM EST Mariah Messer MD LAB BLOOD ORDERABLES [address] [address], [address] [address] * Phosphorus (Routine) (03/01/2024 8:37 AM EST) Phosphorus 2.9 2.7 - 4.5 mg/dL 03/01/2024 10:21 AM [facility] Blood (Plasma/Serum) 03/01/2024 8:37 AM EST 03/01/2024 9:33 AM EST Mariah Messer MD LAB BLOOD ORDERABLES Performing Organization Address City/[facility]/ZIP Co de Phone Number [address] [address], [address] [address] * Magnesium (Routine) (03/01/2024 8:37 AM EST) Magnesium 2.0 1.6 - 2.7 mg/dL 03/01/2024 10:21 AM [facility] Blood (Plasma/Serum) 03/01/2024 8:37 AM EST 03/01/2024 9:33 AM EST Mariah Messer MD LAB BLOOD ORDERABLES [address] [address], [address] [address] * (ABNORMAL) Basic Metabolic Panel (Routine) (03/01/2024 8:37 AM EST) Glucose 127(H) 65 - 99 mg/dL 03/01/2024 10:21 AM [facility] Comment:Fasting: <100 mg/dL, Non-Fasting: <200 mg/dL (ADA 2004) Blood Urea Nitrogen (BUN) 18 8 - 21 mg/dL 03/01/2024 10:21 AM [facility] Creatinine 1.3 0.5 - 1.3 mg/dL 03/01/2024 10:21 AM [facility] eGFR 61 >59 03/01/2024 10:21 AM [facility] Comment:CKD-EPI (2020) in mL /min/1.73 sq meters. Sodium 145 136 - 145 mmol/L 03/01/2024 10:21 AM [facility] Potassium 3.6 3.4 - 5.3 mmol/L 03/01/2024 10:21 AM [facility] Chloride 107 98 - 107 mmol/L 03/01/2024 10:21 AM [facility] CO2 22 22 - 33 mmol/L 03/01/2024 10:21 AM [facility] Anion Gap 16 7 - 17 03/01/2024 10:21 AM [facility] Calcium 9.1 8.7 - 10.5 mg/dL 03/01/2024 10:21 AM [facility] BUN/Creatinine Ratio 14 10.0 - 25.0 Ratio 03/01/2024 10:21 AM [facility] Blood (Plasma/Serum) 03/01/2024 8:37 AM EST 03/01/2024 9:33 AM EST Mariah Messer MD [place] [address], [address] [address] * (ABNORMAL) Complete Blood Count, WITHOUT Differential (routine) (03/01/2024 8:37 AM EST) White Blood Cell Count 9.9 4.0 - 11.0 Thou/uL 03/01/2024 10:05 AM [facility] Platelet Count 163 150 - 450 Thou/uL 03/01/2024 10:05 AM [facility] Hemoglobin 13.3 13.0 - 17.7 g/dL 03/01/2024 10:05 AM [facility] Hematocrit 40.7 39.0 - 54.0 % 03/01/2024 10:05 AM [facility] Red Blood Cell Count 4.22(L) 4.50 - 6.20 Mil/uL 03/01/2024 10:05 AM [facility] MCV 96 80 - 100 fL 03/01/2024 10:05 AM [facility] MCH 31.5(H) 27.0 - 31.0 pg 03/01/2024 10:05 AM [facility] MCHC 32.7 30.0 - 36.0 g/dL 03/01/2024 10:05 AM [facility] RDW 13.2 11.5 - 14.5 % 03/01/2024 10:05 AM [facility] MPV 9.9 7.5 - 12.5 fL 03/01/2024 10:05 AM [facility] Blood Blood specimen / Unknown 03/01/2024 8:37 AM EST 03/01/2024 9:33 AM EST Mariah Messer MD LAB BLOOD ORDERABLES Performing Organization Address City/State/[facility] [place] [address], [place] [address] * VAS VENOUS DUPLEX LEG (DVT)-BILATERAL (02/29/2024 4:31 PM EST) Anatomical Region Laterality Modality Ultrasound 02/29/2024 3:10 PM EST Narrative 03/01/2024 3:36 PM EST Table formatting from the original result was not included. ?? Department: [facility] Vascular Lab Patient: [id number] (KAREN GORDON) ?? Patient Location: ..[address] CPT Code: 81276 ICD-9: ?? Referring Physician: EVA LUSTER Impression Critical Findings: The report was given [...] Note Bob Gonzales MD - 03/01/2024 Department: [facility] Vascular Lab Patient: [id number] (KAREN GORDON) Patient Location: ..[place] [address].[facility] CPT Code: 92844 ICD-9: Referring Physician: EVA Phelps Critical Findings: The report was given to [...] MD VASCULAR LAB ORDERAB LES * (ABNORMAL) Phosphorus (Routine) (02/29/2024 4:44 AM EST) Phosphorus 2.5(L) 2.7 - 4.5 mg/dL 02/29/2024 5:35 AM EST [facility] Blood (Plasma/Serum) 02/29/2024 4:44 AM EST 02/29/2024 5:08 AM EST Mariah Messer MD LAB BLOOD ORDERABLES Performing Organization Address City/[facility]/[place] [address], [place] [address] * Magnesium (Routine) (02/29/2024 4:44 AM EST) Magnesium 2.3 1.6 - 2.7 mg/dL 02/29/2024 5:35 AM [facility] Blood (Plasma/Serum) 02/29/2024 4:44 AM EST 02/29/2024 5:08 AM EST Mariah Messer MD LAB BLOOD ORDERABLES Performing Organization Address [facility] [place] [address], [place] [address] * (ABNORMAL) Basic Metabolic Panel (Routine) (02/29/2024 4:44 AM EST) Glucose 108(H) 65 - 99 mg/dL 02/29/2024 5:35 AM [facility] Comment:Fasting: <100 mg/dL, Non-Fasting: <200 mg/dL (ADA 2004) Blood Urea Nitrogen (BUN) 15 8 - 21 mg/dL 02/29/2024 5:35 AM [facility] Creatinine 1.0 0.5 - 1.3 mg/dL 02/29/2024 5:35 AM [facility] eGFR 83 >59 02/29/2024 5:35 AM [facility] Comment:CKD-EPI (2020) in mL /min/1.73 sq meters. Sodium 141 136 - 145 mmol/L 02/29/2024 5:35 AM [facility] Potassium 3.9 3.4 - 5.3 mmol/L 02/29/2024 5:35 AM [facility] Chloride 111(H) 98 - 107 mmol/L 02/29/2024 5:35 AM [facility] CO2 18(L) 22 - 33 mmol/L 02/29/2024 5:35 AM [facility] Anion Gap 12 7 - 17 02/29/2024 5:35 AM [facility] Calcium 8.3(L) 8.7 - 10.5 mg/dL 02/29/2024 5:35 AM [facility] BUN/Creatinine Ratio 15 10.0 - 25.0 Ratio 02/29/2024 5:35 AM [facility] Blood (Plasma/Serum) 02/29/2024 4:44 AM EST 02/29/2024 5:08 AM EST Mariah Messer MD LAB BLOOD ORDERABLES Performing Organization Address City/State/[facility] [place] [address], [place] [address] * (ABNORMAL) Complete Blood Count, WITHOUT Differential (routine) (02/29/2024 4:44 AM EST) White Blood Cell Count 9.5 4.0 - 11.0 Thou/uL 02/29/2024 5:20 AM [facility] Platelet Count 119(L) 150 - 450 Thou/uL 02/29/2024 5:20 AM [facility] Hemoglobin 11.0(L) 13.0 - 17.7 g/dL 02/29/2024 5:20 AM [facility] Hematocrit 33.7(L) 39.0 - 54.0 % 02/29/2024 5:20 AM [facility] Red Blood Cell Count 3.46(L) 4.50 - 6.20 Mil/uL 02/29/2024 5:20 AM [facility] MCV 97 80 - 100 fL 02/29/2024 5:20 AM [facility] MCH 31.8(H) 27.0 - 31.0 pg 02/29/2024 5:20 AM [facility] MCHC 32.6 30.0 - 36.0 g/dL 02/29/2024 5:20 AM [facility] RDW 13.5 11.5 - 14.5 % 02/29/2024 5:20 AM [facility] MPV 9.7 7.5 - 12.5 fL 02/29/2024 5:20 AM [facility] Blood Blood specimen / Unknown 02/29/2024 4:44 AM EST 02/29/2024 5:08 AM EST Mariah Messer MD LAB BLOOD ORDERABLES Performing Organization Address City/[facility]/[place] [address], [place] [address] * Lactic Acid, Plasma (Routine) (02/29/2024 1:29 AM EST) Lactic Acid 1.7 0.5 - 1.9 mmol/L 02/29/2024 2:19 AM [facility] Blood Plasma specimen / Unknown 02/29/2024 1:29 AM EST 02/29/2024 1:42 AM EST Eva Miller APRN LAB BLOOD ORDERABLE S Performing Organization Address [facility] [place] [address], [place] [address] * (ABNORMAL) High Sensitivity Troponin T (Once) (02/29/2024 1:29 AM EST) High Sensitivity Troponin T 211(HH) <23 ng/L 02/29/2024 2:45 AM [facility] Comment:Recurring Critical R esult. Previously phoned. Delta (Change) 53(H) <3 02/29/2024 2:45 AM [facility] Comment:Decreased Blood (Plasma/Serum) 02/29/2024 1:29 AM EST 02/29/2024 1:42 AM EST Eva Miller APRN LAB BLOOD ORDERABLE S Performing Organization Address City/[facility]/[place] [address], [place] [address] * (ABNORMAL) Phosphorus (Routine) (02/28/2024 9:13 PM EST) Phosphorus 2.0(L) 2.7 - 4.5 mg/dL 02/28/2024 10:14 PM [facility] Blood (Plasma/Serum) 02/28/2024 9:13 PM EST 02/28/2024 9:45 PM EST Mariah Messer MD [place] [address], [place] [address] * Magnesium (Routine) (02/28/2024 9:13 PM EST) Magnesium 1.7 1.6 - 2.7 mg/dL 02/28/2024 10:14 PM [facility] Blood (Plasma/Serum) 02/28/2024 9:13 PM EST 02/28/2024 9:45 PM EST Mariah Messer MD LAB BLOOD ORDERABLES Performing Organization Address City/[facility] [facility]/[place] [address], [place] [address] * (ABNORMAL) Basic Metabolic Panel (Routine) (02/28/2024 9:13 PM EST) Glucose 114(H) 65 - 99 mg/dL 02/28/2024 10:14 PM [facility] Comment:Fasting: <100 mg/dL, Non-Fasting: <200 mg/dL (ADA 2004) Blood Urea Nitrogen (BUN) 15 8 - 21 mg/dL 02/28/2024 10:14 PM [facility] Creatinine 1.1 0.5 - 1.3 mg/dL 02/28/2024 10:14 PM [facility] eGFR 74 >59 02/28/2024 10:14 PM [facility] Comment:CKD-EPI (2020) in mL /min/1.73 sq meters. Sodium 138 136 - 145 mmol/L 02/28/2024 10:14 PM [facility] Potassium 3.9 3.4 - 5.3 mmol/L 02/28/2024 10:14 PM [facility] Chloride 107 98 - 107 mmol/L 02/28/2024 10:14 PM [facility] CO2 18(L) 22 - 33 mmol/L 02/28/2024 10:14 PM [facility] Anion Gap 13 7 - 17 02/28/2024 10:14 PM [facility] Calcium 8.9 8.7 - 10.5 mg/dL 02/28/2024 10:14 PM [facility] BUN/Creatinine Ratio 14 10.0 - 25.0 Ratio 02/28/2024 10:14 PM [facility] Blood (Plasma/Serum) 02/28/2024 9:13 PM EST 02/28/2024 9:45 PM EST Mariah Messer MD [place] [address], [place] [address] * (ABNORMAL) Complete Blood Count, WITHOUT Differential (routine) (02/28/2024 9:13 PM EST) White Blood Cell Count 13.9(H) 4.0 - 11.0 Thou/uL 02/28/2024 9:53 PM [facility] Platelet Count 141(L) 150 - 450 Thou/uL 02/28/2024 9:53 PM [facility] Hemoglobin 12.4(L) 13.0 - 17.7 g/dL 02/28/2024 9:53 PM [facility] Hematocrit 38.4(L) 39.0 - 54.0 % 02/28/2024 9:53 PM [facility] Red Blood Cell Count 3.99(L) 4.50 - 6.20 Mil/uL 02/28/2024 9:53 PM [facility] MCV 96 80 - 100 fL 02/28/2024 9:53 PM [facility] MCH 31.1(H) 27.0 - 31.0 pg 02/28/2024 9:53 PM EST [facility] MCHC 32.3 30.0 - 36.0 g/dL 02/28/2024 9:53 PM [facility] RDW 13.2 11.5 - 14.5 % 02/28/2024 9:53 PM [facility] MPV 9.6 7.5 - 12.5 fL 02/28/2024 9:53 PM [facility] Blood Blood specimen / Unknown 02/28/2024 9:13 PM EST 02/28/2024 9:45 PM EST Mariah Messer MD LAB BLOOD ORDERABLES Performing Organization Address City/[facility]/[place] [address], [place] [address] * (ABNORMAL) Lactic Acid, Plasma (Routine) (02/28/2024 9:13 PM EST) Lactic Acid 2.6(H) 0.5 - 1.9 mmol/L 02/28/2024 10:12 PM EST [facility] Blood Plasma specimen / Unknown 02/28/2024 9:13 PM EST 02/28/2024 9:45 PM EST Eva Miller APRN LAB BLOOD ORDERABLE S Performing Organization Address City/[facility]/[place] [address], [place] [address] * (ABNORMAL) Partial Thromboplastin Time (PTT) (02/28/2024 9:13 PM EST) Anticoagulant OTHER AGENT OR UNKNOWN 02/28/2024 9:14 PM EST Partial Thromboplastin Time (PTT) 60(H) 25 - 36 seconds 02/28/2024 10:03 PM EST [facility] Blood Plasma specimen / Unknown 02/28/2024 9:13 PM EST 02/28/2024 9:45 PM EST Eva Traner [employer] TECHNICIAN LAB BLOOD ORDERABLE S Performing Organization Address City/[facility]/[place] [address], [place] [address] * Protime-INR (02/28/2024 9:13 PM EST) Anticoagulant OTHER AGENT OR UNKNOWN 02/28/2024 9:14 PM EST Prothrombin Time (PT) 13.5 10.0 - 13.5 seconds 02/28/2024 10:03 PM [facility] INR 1.2 02/28/2024 10:03 PM [facility] Comment:INR Therapeutic Rang es: Standard dose anticoagulant 2.0 to 3.0, High dose anticoagulant 2.5-3.5. Blood Plasma specimen / Unknown 02/28/2024 9:13 PM EST 02/28/2024 9:45 PM EST Eva Traner [employer] EM[employer] TECHNICIAN LAB BLOOD ORDERABLE S Performing Organization Address City/[facility]/[place] [address], [place] [address] * (ABNORMAL) High Sensitivity Troponin T (Once) (02/28/2024 9:13 PM EST) High Sensitivity Troponin T 302(HH) <23 ng/L 02/28/2024 10:14 PM [facility] Comment:Recurring Critical R esult. Previously phoned. Delta (Change) 38(H) <3 02/28/2024 10:14 PM [facility] Comment:Increased Blood (Plasma/Serum) 02/28/2024 9:13 PM EST 02/28/2024 9:45 PM EST Eva Luster [employer] EM[employer] TECHNICIAN LAB BLOOD ORDERABLE S Performing Organization Address City/[facility]/[place] [address], [place] [address] * ECG 12 lead (02/28/2024 8:52 PM EST) Systolic BP 122 mmHg EKG [facility] Diastolic BP 74 mmHg EKG [facility] Ventricular rate 98 BPM EKG [facility] Atrial rate 98 BPM EKG [facility] P-R interval 174 ms EKG [facility] QRS duration 88 ms EKG [facility] Q-T interval 366 ms EKG [facility] QTC calculation (Bazett) 467 ms EKG [facility] P axis 57 degrees EKG [facility] R axis 108 degrees EKG [facility] T axis 51 degrees EKG [facility] 02/28/2024 8:52 PM EST Narrative EKG [facility] - 02/29/2024 6:56 AM EST Normal sinus [...] John Jordan ([id number]) on 02/29/2024 6:56:35 AM Elpidio Whitaker MD ECG ORDERABLES [facility] * (ABNORMAL) POCT Glucose, Fingerstick (02/28/2024 8:47 PM EST) POC Glucose 121(H) 65 - 99 mg/dL 02/28/2024 8:48 PM EST Blood specimen / Unknown 02/28/2024 8:47 PM EST 02/28/2024 8:48 PM EST Sotero Headley MD POINT OF CARE TEST O RDERABLES HOSPITAL LAB See Below * CC RIGHT HEART CATH, CORONARY ANGIOGRAM, CC THROMBECTOMY (02/28/2024 7:21 PM EST) Anatomical Region Laterality Modality Radiographic Evelyn ging Narrative 02/28/2024 7:59 PM EST Table formatting from the original result was not included. Images from the original result were not included. [facility] [place] [facility] - Cardiac Catheterization Laboratory [facility] [place] [facility] - Cardiac Catheterization Laboratory PATIENT DEMOGRAPHIC INFORMATION Name: Karen Gordon : 1955 68 y.o. Sex: male Gender: male Procedure Date: 02/28/2024 PROCEDURE DETAILS Mill Set Up: Jerry Plata MD Fellow: MD Alla Gallegos MD Omar Yacob, MBBS General Assignment Reporter(s): none Indications for Procedure: Pulmonary embolism ?? [...] L/min/kg2 QS = 2.76 Tracings available in [employer] log report CLINICAL HISTORY 64-year-old male presents to the hospital shortness of breath found to have intermediate risk pulmonary embolism with risk enhancing features. PROCEDURE Informed consent was obtained; a procedural timeout was performed; the patient was prepped and draped in sterile fashion; Access: Right femoral vein Sheath: 24F Cymro Under ultrasound guidance the right femoral vein was accessed with a 7F sheath. The vein was preclosed. A right heart catheterization was performed with a [place] Ritchie Catheter. A pigtail was used to [...] 24 hours) ?? Date/Time Action Medication Dose 02/28/241921 Given iohexol (OMNIPAQUE) 350 mg/mL injection 120 [...] this patient that I request from a [facility] PA/AUT[employer] EMISSIONS TECHNICIAN/fellow/staff member. Jerry Plata MD [facility] [place] 02/28/2024 ??7:34 PM Cardiac Protocol pulmonary hypertension [...] atypical angina PCI Indication: other. Indications for Proposal Rep Visit: other indications Jerry Plata MD CV CARDIAC CATH OR DERABLES * ARTERIOGRAPHY PULMONARY SELECT-BILATERAL, THROMBECTOMY ARTERIAL PRIMARY 1ST VESSEL (02/28/2024 7:21PM EST) Anatomical Region Laterality Modality Radiographic Evelyn ging Narrative 02/28/2024 7:59 PM EST Table formatting from the original result was not included. Images from the original result were not included. [facility] [place] [facility] - Cardiac Catheterization Laboratory [facility] [place] [facility] - Cardiac Catheterization Laboratory PATIENT DEMOGRAPHIC INFORMATION Name: Karen Gordon : 1955 68 y.o. Sex: male Gender: male Procedure Date: 02/28/2024 PROCEDURE DETAILS Mill Set Up: Jerry Plata MD Fellow: MD Alla Gallegos MD Omar Yacob, MBBS General Assignment Reporter(s): none Indications for Procedure: Pulmonary embolism ?? [...] L/min/kg2 QS = 2.76 Tracings available in [employer] log report CLINICAL HISTORY 64-year-old male presents to the hospital shortness of breath found to have intermediate risk pulmonary embolism with risk enhancing features. PROCEDURE Informed consent was obtained; a procedural timeout was performed; the patient was prepped and draped in sterile fashion; Access: Right femoral vein Sheath: 24F Cymro Under ultrasound guidance the right femoral vein was accessed with a 7F sheath. The vein was preclosed. A right heart catheterization was performed with a [place] Ritchie Catheter. A pigtail was used to [...] 24 hours) ?? Date/Time Action Medication Dose 02/28/241921 Given iohexol (OMNIPAQUE) 350 mg/mL injection 120 [...] this patient that I request from a [facility] PA/[employer] EMISSIONS TECHNICIAN/fellow/staff member. Jerry Plata MD [facility] [place] 02/28/2024 ??7:34 PM Cardiac Protocol pulmonary hypertension [...] atypical angina PCI Indication: other. Indications for Proposal Rep Visit: other indications Jerry Plata MD CV ENDOVASCULAR OR DERABLES * (ABNORMAL) POCT O2 Saturation (AVOX) (02/28/2024 7:13 PM EST) PA 48(A) 60 - 75 % Lot Number [id number] Shot Man Pass Pass Blood 02/28/2024 7:13 PM EST Jerry Plata MD POINT OF CARE TEST ORDERABLES * (ABNORMAL) POCT O2 Saturation (AVOX) (02/28/2024 6:37 PM EST) RA 44.1(A) 60 - 75 % PA 48.3(A) 60 - 75 % Lot Number [id number] Shot Man Pass Pass Blood 02/28/2024 6:37 PM EST Jerry Plata MD POINT OF CARE TEST ORDERABLES * ERROL Archive for reference only CT (02/28/2024 4:25 PM EST) Narrative SYSTEMGENERATED, DOCUMENTATION - 02/28/2024 [...] FILMS * ERROL Archive for reference only CT (02/28/2024 4:20 PM EST) Narrative SYSTEMGENERATED, DOCUMENTATION - 02/28/2024 4:19 PM EST This order has been auto-finalized and does not contain a result. Mariah Messer MD IMG DIGITIZE FILMS * ECG 12 lead (02/28/2024 4:14 PM EST) [facility] Ventricular rate 109 BPM EKG [facility] Atrial rate 109 BPM EKG [facility] P-R interval 190 ms EKG [facility] QRS duration 94 ms EKG [facility] Q-T interval 350 ms EKG [facility] QTC calculation (Bazett) 472 ms EKG [facility] P axis 51 degrees EKG [facility] R axis 111 degrees EKG [facility] T axis 34 degrees [facility] 02/28/2024 4:14 PM EST Narrative EKG [facility] - 02/28/2024 8:09 PM EST Sinus tachycardia Right axis deviation Abnormal ECG No previous ECGs available Confirmed by DO Newby Kyla ([id number]) on 02/28/2024 8:09:13 PM Procedure Note Lelo Newby DO - 02/28/2024 Sinus tachycardia Right axis deviation Abnormal ECG No previous ECGs available Confirmed by DO Newby Kyla ([id number]) on 02/28/2024 8:09:13 PM Sotero Headley MD ECG ORDERABLES [facility] * (ABNORMAL) Troponin T, High Sensitivity - STAT and in 1 hour (02/28/2024 4:08 PM EST) Pathologist [facility] High Sensitivity Troponin T 264(HH) <23 ng/L 02/28/2024 4:58 PM EST [facility] Delta (Change) NO PREVIOUS RESULT <3 02/28/2024 4:58 PM EST [facility] Blood (Plasma/Serum) 02/28/2024 4:08 PM EST 02/28/2024 4:26 PM EST Sotero Headley MD LAB BLOOD ORDERABLES [address] [address], [address] [address] * INR (02/28/2024 4:08 PM EST) Pathologist [facility] Anticoagulant NO ANTI COAGULANT MEDS 02/28/2024 3:59 PM EST Prothrombin Time (PT) 12.5 10.0 - 13.5 seconds 02/28/2024 4:42 PM EST [facility] INR 1.1 02/28/2024 4:42 PM EST [facility] Comment:INR Therapeutic Rang es: Standard dose anticoagulant 2.0 to 3.0, High dose anticoagulant 2.5-3.5. Blood Plasma specimen / Unknown 02/28/2024 4:08 PM EST 02/28/2024 4:26 PM EST Sotero Headley MD LAB BLOOD ORDERABLES Performing Organization Address City/[facility]/ZIP Co de Phone Number [address] [address], [address] [address] * (ABNORMAL) proBNP, N-terminal (BNP) (02/28/2024 4:08 PM EST) Pathologist [facility] proBNP, N-terminal 180(H) <125 pg/mL 02/28/2024 4:58 PM EST [facility] Blood Plasma specimen / Unknown 02/28/2024 4:08 PM EST 02/28/2024 4:26 PM EST Sotero Headley MD LAB BLOOD ORDERABLES [address] [address], [address] [address] * Magnesium (02/28/2024 4:08 PM EST) Pathologist [facility] Magnesium 2.0 1.6 - 2.7 mg/dL 02/28/2024 4:58 PM [facility] Blood (Plasma/Serum) 02/28/2024 4:08 PM EST 02/28/2024 4:26 PM EST Sotero Headley MD LAB BLOOD ORDERABLES [address] [address], [address] [address] * (ABNORMAL) Hepatic Function Panel (02/28/2024 4:08 PM EST) [facility] Alkaline Phosphatase 134(H) 45 - 128 U/L 02/28/2024 4:58 PM [facility] Aspartate Aminotrans (AST) 28 10 - 55 U/L 02/28/2024 4:58 PM [facility] Alanine Aminotrans (ALT) 30 10 - 55 U/L 02/28/2024 4:58 PM [facility] Bilirubin, Total 0.3 0.2 - 1.0 mg/dL 02/28/2024 4:58 PM [facility] Protein, Total 7.5 6.3 - 8.3 g/dL 02/28/2024 4:58 PM [facility] Albumin 3.9 3.4 - 4.8 g/dL 02/28/2024 4:58 PM [facility] Bilirubin, Direct <0.1 0 - 0.2 mg/dL 02/28/2024 4:58 PM [facility] Globulin 3.6 1.5 - 3.9 g/dL 02/28/2024 4:58 PM [facility] Albumin/Globulin Ratio 1.1 1.0 - 3.0 Ratio 02/28/2024 4:58 PM [facility] Blood (Plasma/Serum) 02/28/2024 4:08 PM EST 02/28/2024 4:26 PM EST Sotero Headley MD [place] [address], [place] [address] * (ABNORMAL) Basic Metabolic Panel (02/28/2024 4:08 PM EST) [facility] Signature Glucose 98 65 - 99 mg/dL 02/28/2024 4:58 PM [facility] Comment:Fasting: <100 mg/dL, Non-Fasting: <200 mg/dL (ADA 2005) Blood Urea Nitrogen (BUN) 18 8 - 21 mg/dL 02/28/2024 4:58 PM [facility] Creatinine 1.1 0.5 - 1.3 mg/dL 02/28/2024 4:58 PM [facility] eGFR 74 >59 02/28/2024 4:58 PM [facility] Comment:CKD-EPI (2020) in mL /min/1.73 sq meters. Sodium 141 136 - 145 mmol/L 02/28/2024 4:58 PM [facility] Potassium 4.6 3.4 - 5.3 mmol/L 02/28/2024 4:58 PM [facility] Chloride 108(H) 98 - 107 mmol/L 02/28/2024 4:58 PM [facility] CO2 20(L) 22 - 33 mmol/L 02/28/2024 4:58 PM [facility] Anion Gap 13 7 - 17 02/28/2024 4:58 PM [facility] Calcium 9.6 8.7 - 10.5 mg/dL 02/28/2024 4:58 PM [facility] BUN/Creatinine Ratio 16 10.0 - 25.0 Ratio 02/28/2024 4:58 PM [facility] Blood (Plasma/Serum) 02/28/2024 4:08 PM EST 02/28/2024 4:26 PM EST Sotero Headley MD [place] [address], [place] [address] * (ABNORMAL) Complete Blood Count, with Differential (02/28/2024 4:08 PM EST) [facility] White Blood Cell Count 12.5(H) 4.0 - 11.0 Thou/uL 02/28/2024 4:36 PM [facility] Platelet Count 144(L) 150 - 450 Thou/uL 02/28/2024 4:36 PM [facility] Hemoglobin 13.6 13.0 - 17.7 g/dL 02/28/2024 4:36 PM [facility] Hematocrit 41.7 39.0 - 54.0 % 02/28/2024 4:36 PM [facility] Red Blood Cell Count 4.32(L) 4.50 - 6.20 Mil/uL 02/28/2024 4:36 PM [facility] MCV 97 80 - 100 fL 02/28/2024 4:36 PM [facility] MCH 31.5(H) 27.0 - 31.0 pg 02/28/2024 4:36 PM [facility] MCHC 32.6 30.0 - 36.0 g/dL 02/28/2024 4:36 PM [facility] RDW 13.2 11.5 - 14.5 % 02/28/2024 4:36 PM [facility] MPV 9.8 7.5 - 12.5 fL 02/28/2024 4:36 PM [facility] Neutrophils Auto 76.5 % 02/27/19 4:36 PM [facility] Immature Granulocytes 1.8 % 02/28/2024 4:36 PM [facility] Lymphocytes Auto 14.7 % 02/27/19 4:36 PM [facility] Monocytes Auto 6.3 % 02/28/2024 4:36 PM [facility] Eosinophils Auto 0.5 % 02/27/19 4:36 PM [facility] Basophils Auto 0.2 % 02/28/2024 4:36 PM [facility] Abs Neutrophils Auto 9.60(H) 2.00 - 7.50 Thou/uL 02/28/2024 4:36 PM [facility] Abs Immature Granulocytes 0.22(H) 0.00 - 0.10 Thou/uL 02/28/2024 4:36 PM [facility] Abs Lymphocytes Auto 1.84 1.50 - 4.50 Thou/uL 02/28/2024 4:36 PM EST [facility] Abs Monocytes Auto 0.79 0.20 - 1.50 Thou/uL 02/28/2024 4:36 PM [facility] Abs Eosinophils Auto 0.06 0.00 - 0.70 Thou/uL 02/28/2024 4:36 PM [facility] Abs Basophils Auto 0.02 0.00 - 0.20 Thou/uL 02/28/2024 4:36 PM EST [facility] Blood Blood specimen / Unknown 02/28/2024 4:08 PM EST 02/28/2024 4:26 PM EST Sotero Headley MD LAB BLOOD ORDERABLES Performing Organization Address City/[facility]/[place] [address], [place] [address] * POCT Glucose, Fingerstick (02/28/2024 4:07 PM EST) Pathologist [facility] POC Glucose 96 65 - 99 mg/dL 02/28/2024 6:05 PM EST Blood specimen / Unknown 02/28/2024 4:07 PM EST 02/28/2024 6:05 PM EST Sotero Headley MD POINT OF CARE TEST O RDERABLES HOSPITAL LAB See Below * (ABNORMAL) Lactate Level X 2 (02/28/2024 3:58 PM EST) Lactic Acid 2.4(H) 0.5 - 1.9 mmol/L 02/28/2024 4:52 PM [facility] Blood Plasma specimen / Unknown 02/28/2024 3:58 PM EST 02/28/2024 4:26 PM EST Sotero Headley MD LAB BLOOD ORDERABLES Performing Organization Address City/[facility]/[place] [address], [facility] [place] [facility] [address] [place] [address] documented in this encounter Visit Diagnoses Diagnosis 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)- Primary Pulmonary embolism (HCC) Other pulmonary embolism and infarction Acute saddle pulmonary embolism without acute cor pulmonale (HCC) documented in this encounter Admitting Diagnoses Diagnosis 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 90.1 kg (135.15 mL/hr, rounded to 135.2 mL/hr), Intravenous, Continuous, Starting on Yael 02/28/24 at 2000, For 4 hours, Do not modify orders without contacting interventional cardiology attending and/or fellow. Rate/Dose Verify 02/28/2024 11:00 PM EST 1.5 mL/kg/hr 135.2 mL/hr apixaban (ELIQUIS) tablet 10 mg 10 mg, Oral, Every 12 hours scheduled, First dose on Sun02/29/24 at 1100, For 7 days, Tablets may be crushed and suspended in 60 mL of water, D5W, or apple juice or mixed with applesauce; administer immediately. For delivery through a nasogastric tube, crushed tablets may be suspended in 60 mL of water or D5W followed by immediate delivery., Indication for Anticoagulation: PE - Treatment Given 02/29/2024 11:18 AM EST 10 mg ascorbic acid (VITAMIN C) tablet 1,000 mg 1,000 mg, Oral, Daily, First dose on Sun02/29/24 at 0900 Given 03/04/2024 9:30 AM EST 1,000 mg atorvastatin (LIPITOR) tablet 20 mg 20 mg, Oral, Nightly, First dose on Sun02/29/24 at 2100 Given 03/03/2024 9:02 PM EST 20 mg bisacodyl (DULCOLAX) suppository 10 mg 10 mg, Rectal, Daily PRN, constipation, if no bowel movement by day 2, Starting on Sun02/28/24 at 204 carBAMazepine (TEGretol) tablet 400 mg 400 mg, Oral, Nightly, First dose on Sun02/29/24 at 2100, Take with food. Hazardous Level Medium A See Hazardous Medication Policy & Procedures for more information. Given 03/03/2024 9:02 PM EST 400 mg chlorhexidine (PERIDEX) 0.12 % oral solution 15 mL 15 mL, Mouth/Throat, 2 times daily, First dose on Sun02/28/24 at 2100, Swab lips and mouth Given 03/04/2024 9:30 AM EST 15 mL cyclobenzaprine (FLEXERIL) tablet 10 mg 10 mg, Oral, Nightly, First dose on Sun02/29/24 at 2100 Given 03/03/2024 9:02 PM EST 10 mg DULoxetine (CYMBALTA) capsule 90 mg 90 mg, Oral, Nightly, First dose on Sun02/29/24 at 2100, *Swallow capsule/tablet whole. Alternatively, the contents of the capsule/tablet may be sprinkled onto a tablespoon of applesauce and consume immediately without chewing* Given 03/03/2024 9:02 PM EST 90 mg enoxaparin (LOVENOX) syringe 90 mg 90 mg (rounded from 90.1 mg = 1 mg/kg ? 90.1 kg), Subcutaneous, Every 12 hours, First dose on Sun02/29/24 at 0100, Not for use in patients receiving dialysis., Indication for Anticoagulation: VTE Prophylaxis Given 02/29/2024 1:31 AM EST 90 mg Abdominal Tissue enoxaparin (LOVENOX) syringe 90 mg 90 mg (rounded from 86.2 mg = 1 mg/kg ? 86.2 kg), Subcutaneous, Every 12 hours, First dose (after last modification) on Sun02/29/24 at 2200, Not for use in patients receiving dialysis., Indication for Anticoagulation: VTE Treatment Given 03/03/2024 9:56 AM EST 90 mg Abdominal Tissue gabapentin (NEURONTIN) capsule 300 mg 300 mg, Oral, Nightly, First dose on Sun02/29/24 at 2100 Given 03/03/2024 9:03 PM EST 300 mg lactulose (ENULOSE) 10 gm/15 mL solution 20 g 20 g (30 mL), Oral, Every 4 hours PRN, constipation, if no bowel movment by day 3, Starting on 02/28/24 at 2046, Administer until bowel movement levothyroxine (SYNTHROID, LEVOTHROID) tablet 50 mcg 50 mcg, Oral, Daily, First dose on Sun02/29/24 at 0600, Administer in the morning on an empty stomach, at least 30 minutes before food. Hold tube feedings 1 hour before and at least 1 hour after oral levothyroxine administration Tablets may be crushed and mixed in 5 to 10 mL of water. Given 03/04/2024 6:19 AM EST 50 mcg lidocaine (LIDODERM) 5 % patch 1 patch 1 patch, Transdermal, Daily, First dose (after last modification) on 03/03/24 at 2130, If ordered, up to 3 patches may be applied in a single instance. Patch(es) may remain in place for up to 12 hours in any 24-hour period., Patch Site #1: Back, Patch Site # 2 (if applicable): Back Patch Applied 03/03/2024 9:26 PM EST 1 patch Back lidocaine (LIDODERM) 5 % patch 2 patch 2 patch, Transdermal, Daily, First dose on Sun02/29/24 at 0900, If ordered, up to 3 patches may be applied in a single instance. Patch(es) may remain in place for up to 12 hours in any 24-hour period., Patch Site #1: Back, Patch Site # 2 (if applicable): Back Patch Applied 03/02/2024 9:14 PM EST 2 patches Back magnesium sulfate IVPB 2 g in 50 mL SW PREMIX 2 g, Intravenous, Administer over 60 Minutes, Once, On Sun02/29/24 at 0100, For 1 dose, Recheck magnesium level 4 hours after infusion. Maximum dose = 8 g in 24 hrs. New Bag 02/29/2024 12:41 AM EST 2 g 50 mL/hr metoPROLOL TARTRATE (LOPRESSOR) tablet 12.5 mg 12.5 mg, Oral, Every 12 hours scheduled, First dose (after last modification) on Sun03/02/24 at 2100, Hold for HR less than 45 bpm and/or SBP less than 90 mmHg. Notify provider if a dose is held. Given 03/02/2024 9:13 PM EST 12.5 mg metoPROLOL TARTRATE (LOPRESSOR) tablet 25 mg 25 mg, Oral, Every 12 hours scheduled, First dose (after last modification) on 03/03/24 at 1000, Hold for HR less than 45 bpm and/or SBP less than 90 mmHg. Notify provider if a dose is held. Given 03/04/2024 9:30 AM EST 25 mg naloxone (NARCAN) 0.4 mg/mL injection 0.4 mg 0.4 mg, Intravenous, Every 5 min PRN, opioid reversal, respiratory depression, Starting on Yael 02/28/24 at 6, Notify provider if administered PANTOprazole (PROTONIX) EC tablet 40 mg 40 mg, Oral, 2 times daily, First dose on Sun02/29/24 at 0900, *DO NOT CHEW OR CRUSH* Given 03/04/2024 9:30 AM EST 40 mg patient own IMPLANTED pump Intrathecal Infusion, Continuous, Starting on Sun02/29/24 at 1200, Medication and DOSE per 24 hours: Fentanyl 60 mcg/mL, 2.894 mcg per day, Resevoir Volume (mL): 20, Date to be refilled: 03/28/2024 potassium chloride (KLOR-CON M20) CR tablet 20 mEq 20 mEq, Oral, Once, On Sun02/29/24 at 0100, For 1 dose, Swallow tablets whole; do not crush, chew, or suck on tablet. Take with meals and a full glass of water or other liquid to minimize the risk of GI irritation. Swallow tablets whole; do not crush, chew, or suck on tablet. Take with meals and a full glass of water or other liquid to minimize the risk of GI irritation. Given 02/29/2024 12:41 AM EST 20 mEq potassium chloride (KLOR-CON M20) CR tablet 20 mEq 20 mEq, Oral, Once, On Sun03/01/24 at 1600, For 1 dose, Swallow tablets whole; do not crush, chew, or suck on tablet. Take with meals and a full glass of water or other liquid to minimize the risk of GI irritation. Swallow tablets whole; do not crush, chew, or suck on tablet. Take with meals and a full glass of water or other liquid to minimize the risk of GI irritation. Given 03/01/2024 4:39 PM EST 20 mEq potassium phosphate and sodium phosphate (K PHOS NEUTRAL) tablet 250 mg 250 mg, Oral, 4 times daily with meals and nightly, First dose on Sun02/29/24 at 1400, For 4 doses, Administer with a full glass of water. Each tablet contains elemental phosphorus 250 mg (8 mmol), sodium 298 mg (13 mEq), and potassium 45 mg (1.1 mEq). Given 02/29/2024 2:39 PM EST 250 mg senna-docusate (SENNA-S) 8.6-50 MG tablet 2 tablet 2 tablet, Oral, Nightly, First dose on Sun02/28/24 at 2100, Hold for diarrhea Given 03/02/2024 9:12 PM EST 2 tablets sodium zirconium cyclosilicate (LOKELMA) packet 5 g 5 g, Oral, Once, On Sun03/04/24 at 0800, For 1 dose, Administer at least 2 hours before or after other oral drugs. Empty entire contents of packet(s) containing sodium zirconium cyclosilicate into a glass containing approximately 45 mL of water, or more if desired. Stir thoroughly and administer immediately. Given 03/04/2024 12:55 PM EST 5 g topiramate (TOPAMAX) tablet 25 mg 25 mg, Oral, 2 times daily, First dose on Sun02/29/24 at 1400, Hazardous Level Medium B Special Handling See Hazardous Medication Policy & Procedures for more information. Given 03/04/2024 9:30 AM EST 25 mg warfarin (COUMADIN) DOSING PROTOCOL by PHARMACY This is place-lindsay medication for pharmacy to manage warfarin therapy according to the protocol. When therapy is no longer needed, the provider must discontinue the protocol and medication order., Specify INR range: 2-3, Indication for Anticoagulation: PE - Treatment warfarin (COUMADIN) tablet 5 mg 5 mg, Oral, Once, On Sun03/04/24 at 1700, For 1 dose, Take at the same time every day. Discontinue tube feedings 1hour before and at least 1 hour after oral warfarin administration. Hazardous Level Medium B Special Handling See Hazardous Medication Policy & Procedures for more information., Specify INR range: 2-3, Indication for Anticoagulation: PE - Treatment Given 03/04/2024 3:58 PM EST 5 mg warfarin (COUMADIN) tablet 7.5 mg 7.5 mg, Oral, Once, On Sun03/01/24 at 1700, For 1 dose, Take at the same time every day. Discontinue tube feedings 1hour before and at least 1 hour after oral warfarin administration. Hazardous Level Medium B Special Handling See Hazardous Medication Policy & Procedures for more information., Specify INR range: 2-3, Indication for Anticoagulation: PE - Treatment Given 03/01/2024 4:39 PM EST 7.5 mg warfarin (COUMADIN) tablet 7.5 mg 7.5 mg, Oral, Once, On Sun03/02/24 at 1700, For 1 dose, Take at the same time every day. Discontinue tube feedings 1hour before and at least 1 hour after oral warfarin administration. Hazardous Level Medium B Special Handling See Hazardous Medication Policy & Procedures for more information., Specify INR range: 2-3, Indication for Anticoagulation: PE - Treatment Given 03/02/2024 5:03 PM EST 7.5 mg documented in this encounter Active and Recently Administered Medications Times are shown in EST. Scheduled Medication Order 03/02/2024 03/03/2024 03/04/2024 ascorbic acid (VITAMIN C) tablet 1,000 mg 1,000 mg, Oral, Daily, First dose on Sun02/29/24 at 0900 0957 (Given - Provider: Sandi Au RN) 0957 (Given - Provider: Alberta Duron RN) 0930 (Given - Provider: Sandi Au RN) atorvastatin (LIPITOR) tablet 20 mg 20 mg, Oral, Nightly, First dose on Sun02/29/24 at 2100 2112 (Given - Provider: Stephania Ann RN) 2101 (Given - Provider: Nell Lima, EDVIN) carBAMazepine (TEGretol) tablet 400 mg 400 mg, Oral, Nightly, First dose on Sun02/29/24 at 2100, Take with food. Hazardous Level Medium A See Hazardous Medication Policy & Procedures for more information. 2111 (Given - Provider: Stephania Ann RN) 2101 (Given - Provider: Nell Lima, EDVIN) chlorhexidine (PERIDEX) 0.12 % oral solution 15 mL 15 mL, Mouth/Throat, 2 times daily, First dose on Yael 02/28/24 at 2100, Swab lips and mouth 0957 (Given - Provider: Sandi Au RN)2111 (Given - Provider: Stephania Ann RN) 958 (Given - Provider: Alberta Duron RN)2102 (Given - Provider: Nell Lima RN) 929 (Given - Provider: Sandi Au RN) cyclobenzaprine (FLEXERIL) tablet 10 mg 10 mg, Oral, Nightly, First dose on Sun02/29/24 at 2100 2112 (Given - Provider: Stephania Ann RN) 2101 (Given - Provider: Nell Lima RN) DULoxetine (CYMBALTA) capsule 90 mg 90 mg, Oral, Nightly, First dose on Sun02/29/24 at 2100, *Swallow capsule/tablet whole. Alternatively, the contents of the capsule/tablet may be sprinkled onto a tablespoon of applesauce and consume immediately without chewing* 2112 (Given - Provider: Stephania Ann RN) 2101 (Given - Provider: Nell Lima RN) enoxaparin (LOVENOX) syringe 90 mg (CANCELED) 90 mg (rounded from 86.2 mg = 1 mg/kg ? 86.2 kg), Subcutaneous, Every 12 hours, First dose (after last modification) on Sun02/29/24 at 2200, Not for use in patients receiving dialysis., Indication for Anticoagulation: VTE Treatment 957 (Given - Provider: Sandi Au RN)2111 (Given - Provider: Stephania Ann RN) 955 (Given - Provider: Alberta Duron RN) gabapentin (NEURONTIN) capsule 300 mg 300 mg, Oral, Nightly, First dose on Sun02/29/24 at 2100 2112 (Given - Provider: Stephania Ann RN) 2102 (Given - Provider: Nell Lima RN) levothyroxine (SYNTHROID, LEVOTHROID) tablet 50 mcg 50 mcg, Oral, Daily, First dose on Sun02/29/24 at 0600, Administer in the morning on an empty stomach, at least 30 minutes before food. Hold tube feedings 1 hour before and at least 1 hour after oral levothyroxine administration Tablets may be crushed and mixed in 5 to 10 mL of water. 0543 (Given - Provider: Kelsea Laureano RN) 0621 (Given - Provider: Holley Pelletier RN) 06 (Given - Provider: Ara Johnson RN) lidocaine (LIDODERM) 5 % patch 1 patch 1 patch, Transdermal, Daily, First dose (after last modification) on Sun03/03/24 at 2130, If ordered, up to 3 patches may be applied in a single instance. Patch(es) may remain in place for up to 12 hours in any 24-hour period., Patch Site #1: Back, Patch Site # 2 (if applicable): Back 2125 (Patch Applied - Provider: Nell Lima RN) 932 (Patch Removed - Provider: Sandi Au RN) lidocaine (LIDODERM) 5 % patch 2 patch (CANCELED) 2 patch, Transdermal, Daily, First dose on Sun02/29/24 at 0900, If ordered, up to 3 patches may be applied in a single instance. Patch(es) may remain in place for up to 12 hours in any 24-hour period., Patch Site #1: Back, Patch Site # 2 (if applicable): Back 2113 (Patch Applied - Provider: Stephania Ann RN) 1000 (Patch Removed - Provider: Alberta Duron RN)1999 (Not Given - Provider: Nell Lima RN - Reason: Other - Comment required - Comment: order modified per MD) metoPROLOL TARTRATE (LOPRESSOR) tablet 12.5 mg (CANCELED) 12.5 mg, Oral, Every 12 hours scheduled, First dose (after last modification) on Sun03/02/24 at 2100, Hold for HR less than 45 bpm and/or SBP less than 90 mmHg. Notify provider if a dose is held. 2112 (Given - Provider: Stephania Ann RN) 958 (Not Given - Provider: Alberta Duron RN - Reason: See Provider Order - Comment: Dr change order to 25mg) metoPROLOL TARTRATE (LOPRESSOR) tablet 25 mg 25 mg, Oral, Every 12 hours scheduled, First dose (after last modification) on Sun03/03/24 at 1000, Hold for HR less than 45 bpm and/or SBP less than 90 mmHg. Notify provider if a dose is held. 956 (Given - Provider: Alberta Duron RN)2124 (Given - Provider: Nell Lima RN) 929 (Given - Provider: Sandi Au, EDVIN) PANTOprazole (PROTONIX) EC tablet 40 mg 40 mg, Oral, 2 times daily, First dose on Sun02/29/24 at 0900, *DO NOT CHEW OR CRUSH* 0957 (Given - Provider: Sandi Au RN)2111 (Given - Provider: Stephania Ann RN) 956 (Given - Provider: Alberta Duron RN)2102 (Given - Provider: Nell Lima RN) 929 (Given - Provider: Sandi Au RN) senna-docusate (SENNA-S) 8.6-50 MG tablet 2 tablet 2 tablet, Oral, Nightly, First dose on Sun02/28/24 at 2100, Hold for diarrhea 2111 (Given - Provider: Stephania Ann RN) 2099 (Not Given - Provider: Nell Lima RN - Reason: Patient/family refused - Comment: pt with loose stools) sodium zirconium cyclosilicate (LOKELMA) packet 5 g (COMPLETED) 5 g, Oral, Once, On Sun03/04/24 at 0800, For 1 dose, Administer at least 2 hours before or after other oral drugs. Empty entire contents of packet(s) containing sodium zirconium cyclosilicate into a glass containing approximately 45 mL of water, or more if desired. Stir thoroughly and administer immediately. 1255 (Given - Provider: Sandi Au RN - Comment: Waited for pharm to send) topiramate (TOPAMAX) tablet 25 mg 25 mg, Oral, 2 times daily, First dose on Sun02/29/24 at 1400, Hazardous Level Medium B Special Handling See Hazardous Medication Policy & Procedures for more information. 0958 (Given - Provider: Sandi Au RN)2112 (Given - Provider: Stephania Ann RN) 09 (Given - Provider: Alberta Duron RN)2102 (Given - Provider: Nell Lima RN) 929 (Given - Provider: Sandi Au RN) warfarin (COUMADIN) DOSING PROTOCOL by PHARMACY This is place-lindsay medication for pharmacy to manage warfarin therapy according to the protocol. When therapy is no longer needed, the provider must discontinue the protocol and medication order., Specify INR range: 2-3, Indication for Anticoagulation: PE - Treatment warfarin (COUMADIN) tablet 5 mg (COMPLETED) 5 mg, Oral, Once, On Sun03/04/24 at 1700, For 1 dose, Take at the same time every day. Discontinue tube feedings 1hour before and at least 1 hour after oral warfarin administration. Hazardous Level Medium B Special Handling See Hazardous Medication Policy & Procedures for more information., Specify INR range: 2-3, Indication for Anticoagulation: PE - Treatment 1558 (Given - Provider: Antonia Cuellar RN - Comment: per ) warfarin (COUMADIN) tablet 7.5 mg (COMPLETED) 7.5 mg, Oral, Once, On Sun03/02/24 at 1700, For 1 dose, Take at the same time every day. Discontinue tube feedings 1hour before and at least 1 hour after oral warfarin administration. Hazardous Level Medium B Special Handling See Hazardous Medication Policy & Procedures for more information., Specify INR range: 2-3, Indication for Anticoagulation: PE - Treatment 1703 (Given - Provider: Sandi Au RN) Continuous Medication Order 03/02/2024 03/03/2024 03/04/2024 lactated ringers (LR) infusion 100 mL/hr, Intravenous, Continuous, Starting on Sun03/04/24 at 0800, For 5 hours 0930 (New Bag - Prov ider: Sandi Au RN) patient own IMPLANTED pump Intrathecal Infusion, Continuous, Starting on Sun02/29/24 at 1200, Medication and DOSE per 24 hours: Fentanyl 60 mcg/mL, 2.894 mcg per day, Resevoir Volume (mL): 20, Date to be refilled: 03/28/2024 PRN Medication Order 03/02/2024 03/03/2024 03/04/2024 bisacodyl (DULCOLAX) suppository 10 mg 10 mg, Rectal, Daily PRN, constipation, if no bowel movement by day 2, Starting on Yael 02/28/24 at 2046 lactulose (ENULOSE) 10 gm/15 mL solution 20 g 20 g (30 mL), Oral, Every 4 hours PRN, constipation, if no bowel movment by day 3, Starting on Yael 02/28/24 at 2046, Administer until bowel movement naloxone (NARCAN) 0.4 mg/mL injection 0.4 mg 0.4 mg, Intravenous, Every 5 min PRN, opioid reversal, respiratory depression, Starting on Yael 02/28/24 at 6, Notify provider if administered documented in this encounter Care Teams Fur Dry Cleaner Hand Relationship Specialty Start Date End Date Bonilla Grant MD [address] [place] [address] PCP - General Psychiatry, General 02/28/24 documented as of this encounter
== END 2024-04-03 11:40 | disposition home or self-care (01) ==
PROVIDERS: PCP Family Medicine; Visit Provider Anesthesiology
DX: G89.4 Chronic pain syndrome (principal); M48.061 Spinal stenosis, lumbar region without neurogenic claudication; M54.16 Radiculopathy, lumbar region; D17.79 Benign lipomatous neoplasm of other sites; M62.838 Other muscle spasm; M16.0 Bilateral primary osteoarthritis of hip; M53.3 Sacrococcygeal disorders, not elsewhere classified; M47.816 Spondylosis without myelopathy or radiculopathy, lumbar region; M43.10 Spondylolisthesis, site unspecified; Z45.1 Encounter for adjustment and management of infusion pump
CPT/HCPCS: 62370; 99214

== ENCOUNTER → 2024-04-03 10:56 | Outpatient (BNVA) | payer MEDICARE, MEDICAID, SELFPAY | PROVIDERS: PCP Family Medicine; Visit Provider Anesthesiology | DX: Z45.89 Encounter for adjustment and management of other implanted devices (principal); M48.061 Spinal stenosis, lumbar region without neurogenic claudication; M54.16 Radiculopathy, lumbar region; M62.838 Other muscle spasm; M53.3 Sacrococcygeal disorders, not elsewhere classified; M47.816 Spondylosis without myelopathy or radiculopathy, lumbar region; M43.10 Spondylolisthesis, site unspecified; M16.0 Bilateral primary osteoarthritis of hip; D17.79 Benign lipomatous neoplasm of other sites; G89.4 Chronic pain syndrome | CPT/HCPCS: 62370; 99212 ==

== ENCOUNTER 2024-04-07 15:26 | Outpatient (AMB) | payer MEDICARE, MEDICAID, SELFPAY ==
--- NOTE | 2024-04-07 15:27 | MHC.OFFVIS ---
Vital Signs 04/07/24 15:34 Height 5 ft 8 in Weight 181 lb BMI 27.5 BP 132/75 Blood Pressure Location Lt brachial Position Sitting Pulse 69 Pulse Source Pulse Oximeter Intake Visit Reasons: Follow Up Experience Specialist Required: No Accompanied by: Spouse Allergies oxycodone Adverse Reaction (Severe, Verified 04/07/24 15:35) vertigo sulfamethoxazole [From Bactrim] Adverse Reaction (Severe, Verified 04/07/24 15:35) AFIB trimethoprim [From Bactrim] Adverse Reaction (Severe, Verified 04/07/24 15:35) AFIB HPI Comments Details: Carlito is here today with complains on bulging returning in the area surrounding he has pain pump body. He also showed me today bulging in the projection of the skin incision in the mid lumbar spine where the catheter was implanted. Initially I thought that when I removed 60 cc of fluid surrounding his pain pump on last refill that it is benign seroma. The fluid was clear and straw-colored. 60 cc was removed. Patient did not report the headache she continues to deny headache at this time. Now I am suspecting that this fluid is actually CSF coming from the area of the insertion of the pain pump catheter. Possibility exists of catheter injury as well. I contacted Dr. Velasco and I requested urgent consult. Possibility exists to do a dye study on the pain pump with CT scan evaluating subcutaneous fluid collections as well as cerebrospinal fluid. He reports itchiness on application of the PTM. Possibility exists that he responds to small doses of fentanyl in subcutaneous tissues. Past Procedures: 01/18/2024: Implantation of the I DDD with neurosurgical implanted intrathecal catheter via anatomy. 08/10/23: Attempt of ITDD implant-0% pain relief, procedure aborted 05/22/23: ITDD trial with Fentanyl -80% pain relief for 28 hours 04/20/23: Lumbar Nevro SCS trial-30-40% pain relief [facility] Medical History LAU (dyspnea on exertion) ROSS (obstructive sleep apnea) Arthritis Hiatal hernia Anxiety Depression Elevated cholesterol Atrial fibrillation Umbilical hernia Habitual snoring Sleep apnea Self-catheterizes urinary bladder Disorder of sacroiliac joint Lumbar spinal stenosis Thyroid disease GERD (gastroesophageal reflux disease) Cognitive disorder Back pain Bladder atony Osteoarthritis of hips, bilateral Hypothyroidism Hyperlipidemia Bipolar 1 disorder DVT (deep venous thrombosis) COVID-19 Lynette's thyroiditis Sacroiliac joint pain Bilateral lumbar radiculopathy Spondylosis of lumbar spine Bilateral hip pain Spondylolisthesis Surgical History History of hand surgery History of esophagogastroduodenoscopy (EGD) (~10/2023) Hx of umbilical hernia repair Hx of colonoscopy Social History Household Members: Spouse Housing: House Are you a primary manager critical care unit to a significant other at home: No Do you presently have visiting nurse or other home services: No Patient Tobacco Use Status: Never used Tobacco e-Cigarette/Vaping Use: Never Used Review of Systems Const All systems reviewed & are unremarkable except as noted in HPI and below Physical Exam Vital Signs: Last Vital Signs Pulse 69 04/07/24 15:34 BP 132/75 04/07/24 15:34 BMI result Body Mass Index 27.5 General: Appears afebrile. Alert and oriented. Mood and affect appropriate. Follows and participates in conversation appropriately. Respiratory effort is unlabored. Able to transition from sit to stand unassisted. Ambulates with bilaterally normal heel strike and toe off. General: Yes no CVA tenderness Back/Spine/Pelvis Other: Midline incisional wound-No pathological discharge, no swelling and no erythema. There is bulging fluid collection surrounding intrathecal pain pump. There is also seemingly collection of the fluid in subcutaneous tissues were implantation of the intrathecal catheter incision. Back: no CVA tenderness Cervical Spine: cervical muscular tenderness, pain with cervical ROM and No Cervical spine tenderness Thoracic/Lumbar Spine: thoracic and lumbar spine normal to inspection, Lasegue's sign negative, straight leg raise negative bilaterally, pain with thoraco-lumbar ROM, thoraco-lumbar ROM limited, No thoracic spinal tenderness and lumbar spinal tenderness at L4 and at L5 Pelvis: no buttock tenderness Assessment & Plan Assessment & Plan (1) CSF leak: Code(s): G96.00 - Cerebrospinal fluid leak, unspecified Category: Medical (2) Chronic pain syndrome: Code(s): G89.4 - Chronic pain syndrome Category: Medical (3) Spinal stenosis of lumbar region with radiculopathy: Code(s): M48.061 - Spinal stenosis, lumbar region without neurogenic claudication; M54.16 - Radiculopathy, lumbar region Category: Medical (4) Spondylosis of lumbar spine: Code(s): M47.816 - Spondylosis without myelopathy or radiculopathy, lumbar region Category: Medical Plan CSF leak is suspected. Urgent referral to neurosurgery is made. Possibly CT myelography with contrast injected via intrathecal pain pump may need to be performed. Patient is instructed not to use PTM device for now. Orders: Referrals Neurosurgery Referral G96.00 - Cerebrospinal fluid leak, unspecified Coding Level of Care Code Est Pt Level 3 (46331) Diagnoses CSF leak G96.00 Chronic pain syndrome G89.4 Spinal stenosis of lumbar region with radiculopathy M48.061; M54.16 Spondylosis of lumbar spine M47.816
[2024-04-07 15:34] VITALS: BP 132/75; PULSE 69; BMI 27.5
--- OUTSIDE RECORDS SUMMARY | 2024-04-07 17:44 | XMS_ITS | Clinical Summary ---
Author Organization [facility] Address [address] [place] [address] Phone Care Team Providers Care Senior Art Director Name Role Phone Bonilla Grant DO Primary Care Provider [phone] Allergies Active Allergy Reactions Criticality Noted Date Comments Sulfamethoxazole-Trimethopr im 04/07/2024 Other 11/05/2020 Bactrim [Na Benzoate-sulfamethoxazole -trimethoprim Oxycontin [Indigotine-oxycodone Hcl] Oxycodone 11/05/2020 Medications acetaminophen (TYLENOL 8 HOUR ORAL) Take by mouth. Active ascorbic acid (VITAMIN C) 500 mg tablet Take 500 mg by mouth daily. Active cholecalcifero l, vitamin D3, (VITAMIN D3 ORAL) Take by mouth. Active carBAMazepine (CARBATROL) 200 mg 12 hr capsule Take 200 mg by mouth 2 times daily. Active DULoxetine (CYMBALTA) [address] capsule Take 60 mg by mouth daily. 90 mg daily Active levothyroxine (SYNTHROID, LEVOTHROID) 75 mcg tablet Take 75 mcg by mouth daily. Active pantoprazole (PROTONIX) 40 mg EC tablet Take 40 mg by mouth daily. Active gabapentin (NEURONTIN) 300 mg capsule Take 1 capsule (300 mg total) by mouth daily. 4 Active atorvastatin (LIPITOR) 20 mg tablet Take 1 tablet (20 mg total) by mouth daily. 4 Active metoprolol tartrate (LOPRESSOR) 25 mg tablet 5 Active topiramate (TOPAMAX) 25 mg tablet Take 1 tablet (25 mg total) by mouth 2 times daily. 4 Active warfarin (COUMADIN) 5 mg tablet Take 1 tablet (5 mg total) by mouth. 5 Active ibuprofen (IBU-200 ORAL) Take by mouth. 04/07/19 25 Discontinued MELATONIN ORAL Take by mouth. 04/07/19 25 Discontinued lidocaine (LIDODERM) 5 % patch Place 1 Patch onto the skin every 24 hours. Apply for no more than 12 hours in any 24 hour period. 04/07/19 25 Discontinued Encounters Date Type Department Care Team Description 04/07/2024 1:00 PM EST Office Visit [facility] Hematology Oncology [address] [place] [address] Ranjana Sandoval MD Acute saddle pulmonary embolism without acute cor pulmonale (CMS/HCC); Acute deep vein thrombosis (DVT) of popliteal vein of right lower extremity (CMS/HCC) from Last 3 Months Medical History Medical History Date Comments DVT, lower extremity (CMS/HCC) Bipolar 1 disorder (CMS/HCC) Hyperlipidemia Hypothyroidism Lumbar spinal stenosis GI disease Pulmonary emboli (CMS/HCC) Umbilical hernia Family History Medical History Relation Name Comments Prostate cancer Father Relation Name Status Comments Father Social History Tobacco Use Types Packs/Day Years Used Date Smoking Tobacco: Never Smokeless Tobacco: Never Alcohol Use Standard Drinks/Week Comments Not Currently 0 (1 standard drink = 0.6 oz pur e alcohol) Sex and Gender Information Value Date Recorded Sex Assigned at Male 03/10/2024 4:29 PM EST Legal Sex Male 9:44 AM EST Gender Identity Male 03/10/2024 4:29 PM EST Sexual Orientation Not on file Obstetrics History Last Filed Vital Signs Vital Sign Reading Time Taken Comments Blood Pressure 122/78 04/07/2024 1:04 PM EST Pulse 66 04/07/2024 1:04 PM EST Temperature 36.6 ??C (97.9 ??F) 04/07/2024 1:04 PM ES T Respiratory Rate - - Oxygen Saturation 100% 04/07/2024 1:04 PM EST Inhaled Oxygen Concentration - - Weight 82.6 kg (182 lb) 04/07/2024 1:04 PM EST Height 170.2 cm (5' 7 ) 04/07/2024 1:04 PM EST Body Mass Index 28.51 04/07/2024 1:04 PM EST Plan of Treatment Upcoming Encounters Date Type Department Care Team (Late st Contact Info) Description 06/17/2024 1:15 PM EDT Office Visit [facility] Hematology Oncology [address] [place] [phone] Ranjana Sandoval MD [address] [place] [address] Health Maintenance Due Date Last Done Comments [...] Procedure Name Priority Date/Time Associated Diagnosis Comments CBC WITH AUTO DIFFERENTIAL Routine 04/07/2024 1:57 PM EST Acute saddle pulmonary embolism without acute cor pulmonale (CMS/HCC) Acute deep vein thrombosis (DVT) of popliteal vein of right lower extremity (CMS/HCC) CBC AND DIFFERENTIAL Routine 04/07/2024 1:57 PM EST Acute saddle pulmonary embolism without acute cor pulmonale (CMS/HCC) Acute deep vein thrombosis (DVT) of popliteal vein of right lower extremity (CMS/HCC) HM COLONOSCOPY Routine 03/02/2021 from Last 3 Months or Most Recently Relevant to Health Maintenance Results * (ABNORMAL) CBC auto differential (04/07/2024 1:57 PM EST) WBC 5.4 4.8 - 10.8 K/mcL LAB HEMETOLOGY METHOD 04/07/2024 4:48 PM [facility] RBC 4.10(L) 4.50 - 5.50 M/mcL LAB HEMETOLOGY METHOD 04/07/2024 4:48 PM [facility] Hemoglobin 12.6(L) 13.5 - 17.5 g/dL LAB HEMETOLOGY METHOD 04/07/2024 4:48 PM [facility] Hematocrit 39.4(L) 42.0 - 54.0 % LAB HEMETOLOGY METHOD 04/07/2024 4:48 PM [facility] MCV 96.1 79.0 - 98.0 FL LAB HEMETOLOGY METHOD 04/07/2024 4:48 PM [facility] MCH 30.7 27.0 - 32.0 pcg LAB HEMETOLOGY METHOD 04/07/2024 4:48 PM [facility] MCHC 32.0 32.0 - 37.0 g/dL LAB HEMETOLOGY METHOD 04/07/2024 4:48 PM [facility] RDW 13.2 11.0 - 15.0 % LAB HEMETOLOGY METHOD 04/07/2024 4:48 PM [facility] Platelets 181 130 - 400 K/mcL LAB HEMETOLOGY METHOD 04/07/2024 4:48 PM [facility] MPV 10.0 7.0 - 11.0 FL LAB HEMETOLOGY METHOD 04/07/2024 4:48 PM [facility] NRBC 0.0 <1.0 % LAB HEMETOLOGY METHOD 04/07/2024 4:48 PM [facility] NRBC Absolute 0.00 <0.10 K/mcL LAB HEMETOLOGY METHOD 04/07/2024 4:48 PM [facility] Neutrophils Relative 51.4 % LAB HEMETOLOGY METHOD 04/07/2024 4:48 PM [facility] Lymphocytes Relative 31.6 % LAB HEMETOLOGY METHOD 04/07/2024 4:48 PM [facility] Monocytes Relative 9.6 % LAB HEMETOLOGY METHOD 04/07/2024 4:48 PM [facility] Eosinophils Relative 6.8 % LAB HEMETOLOGY METHOD 04/07/2024 4:48 PM [facility] Basophils Relative 0.4 % LAB HEMETOLOGY METHOD 04/07/2024 4:48 PM [facility] Immature Granulocytes Relative 0.2 % LAB HEMETOLOGY METHOD 04/07/2024 4:48 PM [facility] Neutrophils Absolute 2.80 1.50 - 7.00 K/mcL LAB HEMETOLOGY METHOD 04/07/2024 4:48 PM [facility] Lymphocytes Absolute 1.72 1.00 - 5.00 K/mcL LAB HEMETOLOGY METHOD 04/07/2024 4:48 PM EST [facility] Monocytes Absolute 0.52 0.20 - 1.00 K/mcL LAB HEMETOLOGY METHOD 04/07/2024 4:48 PM EST [facility] Eosinophils Absolute 0.37 0.00 - 0.50 K/mcL LAB HEMETOLOGY METHOD 04/07/2024 4:48 PM EST [facility] Basophils Absolute 0.02 0.00 - 0.20 K/mcL LAB HEMETOLOGY METHOD 04/07/2024 4:48 PM EST [facility] Immature Granulocytes Absolute 0.01 0.00 - 0.03 K/mcL LAB HEMETOLOGY METHOD 04/07/2024 4:48 PM [facility] Blood Venous blood specimen / Unknown Venipuncture / Unknown 04/07/2024 1:57 PM EST 04/07/2024 4:36 PM EST Ranjana Sandoval MD LAB BLOOD ORDERABLES Final R esult [facility] [address] [place] [address], * Colonoscopy (03/02/2021) Colonoscopy no interpretation abstracted Anatomical Region Laterality Modality Other Historical Provider HEALTH MAINTENANCE Final Result from Last 3 Months or Most Recently Relevant to Health Maintenance Insurance [employer] [employer] - [place] MEDICARE AD[place]ANTAGE [place] Care Teams Senior Art Director Relationship Specialty Start Date End Date Bonilla Grant DO [address], [place] PCP - General Family Medicine 03/10/24
--- OUTSIDE RECORDS SUMMARY | 2024-04-07 17:44 | XMS_ITS | Encounter Summary ---
Author Organization [facility] Address [address] [place] [address] Care Team Providers Care Clother In Name Role Phone Bonilla Grant DO Primary Care Provider [phone] Reason for Visit * Reason Comments Consult * Consultation (Routine) - Authorized Specialty Diagnoses / Procedures Referred By Contac t Referred To Contact Hematology and Oncology Diagnoses Acute saddle pulmonary embolism without acute cor pulmonale (CMS/HCC) Acute deep vein thrombosis (DVT) of popliteal vein of right lower extremity (CMS/HCC) Bonilla Grant DO [address], [place] Phone: tel: fax: Referral ID Status Reason Start Date Expiration Date Visits Requested Visits Authorized [id number] Authorized Specialty Services Required 03/11/2024 03/11/2025 1 1 Encounter Details Date Type Department Care Team (Late st Contact Info) Description 04/07/2024 1:00 PM EST Office Visit [facility] Hematology Oncology [address] [place] [phone] Ranjana Sandoval MD [address] [place] [address] Acute saddle pulmonary embolism without acute cor pulmonale (CMS/HCC); Acute deep vein thrombosis (DVT) of popliteal vein of right lower extremity (CMS/HCC) Social History Tobacco Use Types Packs/Day Years [...] PM EST Sexual Orientation Not on file documented as of this encounter Last Filed [...] Mass Index 28.51 04/07/2024 1:04 PM EST documented in this encounter Progress Notes * Ranjana Sandoval MD - 04/07/2024 1:00 PM EST ONC CANCER INITIAL VISIT Dear Bonilla, Thank you very much for referring this patient for consultation. HPI: Patient is a pleasant 68-year-old man, who who has history of provoked venous thrombosis in 2007 after a prolonged hospitalization/surgery, did anticoagulation for 6 months, patient was without any anticoagulation and has no prior history or family history of clotting disorder but patient underwentback surgery for significant radiculopathy few weeks ago, patient in February 3 week developed significant shortness of breath and was sent to hospital by his surgeon, patient had CT angiogram that showed saddle pulmonary emboli as well as Doppler study shows right lower extremity deep venous thrombosis, patient was transferred from [facility] to [facility] for thrombectomy, patient was on Lovenox and changed to/bridged to warfarin on discharge from hospital (patient cannot be on DOAC because of carbamazepine). Patient has been tolerating warfarin well, not having any significant respiratory issues, patient referred to me for further hematological evaluation of his coagulopathy and recommendation regarding duration of anticoagulation ROS: GENERAL: Patient has been feeling very well lately HEENT no headache no visual symptom NECK: No lumps, goiter, pain or significant neck swelling RESPIRATORY: No significant cough or shortness of breath except sometimes on exertion CARDIOVASCULAR: No chest pain or pressure. GI: No abdominal discomfort, blood in stools or black stools MUSCULOSKELETAL: No new unusual aches and pain HEMATOLOGY/LYMPHOLOGY No prolonged bleeding, but easy bruising because of warfarin Other Systems review is non contributory PAST MEDICAL HISTORY: Chronic lumbar radiculopathy Cognitive disorder Dyslipidemia Hypothyroidism Lynette's thyroidism History of DVT, provoked in 2007 GERD COVID-19 infection Mental health issues with some cognitive impairment Saddle pulm embolism with right lower extremity DVT in February 2024 Bladder atrophy, self catheterize urinary bladder PAST SURGICAL HISTORY: Back surgery SOCIAL HISTORY: He never smoke He denies alcohol use and abuse, used to drink socially/rarely many years ago 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 He is lives with his FAMILY HISTORY: No family history of clotting disorder MEDICATIONS: Current Outpatient Medications: acetaminophen (TYLENOL 8 HOUR ORAL), Take by mouth., Disp: , Rfl: ascorbic acid (VITAMIN C) 500 mg tablet, Take 500 mg by mouth daily., Disp: , Rfl: atorvastatin (LIPITOR) 20 mg tablet, Take 1 tablet (20 mg total) by mouth daily., Disp: , Rfl: carBAMazepine (CARBATROL) 200 mg 12 hr capsule, Take 200 mg by mouth 2 times daily., Disp: , Rfl: cholecalciferol, vitamin D3, (VITAMIN D3 ORAL), Take by mouth., Disp: , Rfl: DULoxetine (CYMBALTA) [address] capsule, Take 60 mg by mouth daily. 90 mg daily, Disp: , Rfl: gabapentin (NEURONTIN) 300 mg capsule, Take 1 capsule (300 mg total) by mouth daily., Disp: , Rfl: levothyroxine (SYNTHROID, LEVOTHROID) 75 mcg tablet, Take 75 mcg by mouth daily., Disp: , Rfl: metoprolol tartrate (LOPRESSOR) 25 mg tablet, , Disp: , Rfl: pantoprazole (PROTONIX) 40 mg EC tablet, Take 40 mg by mouth daily., Disp: , Rfl: topiramate (TOPAMAX) 25 mg tablet, Take 1 tablet (25 mg total) by mouth 2 times daily., Disp: , Rfl: warfarin (COUMADIN) 5 mg tablet, Take 1 tablet (5 mg total) by mouth., Disp: , Rfl: Allergies Allergen Reactions Bactrim [Sulfamethoxazole-Trimethoprim] Other Bactrim [Na Lublvhyz-wfbkeufcoguleetn-thljfbittmpx Oxycontin [Indigotine-oxycodone Hcl] Oxycontin [Oxycodone] PHYSICAL EXAM: Visit Vitals BP 122/78 (BP Location: Left arm, Patient Position: Sitting, BP Cuff Size: Adult) Pulse 66 Temp 36.6 ??C (97.9 ??F) (Temporal) Ht 1.702 m (67 ) Wt 82.6 kg (182 lb) SpO2 100% BMI 28.51 kg/m?? Smoking Status Never BSA 1.94 m?? ECOG 0-1 APPEARANCE: Alert and oriented in no acute distress EYES: nonicteric sclera pink conjunctiva ORAL CAVITY: No erythema or exudates NECK: Neck supple, no cervical and supraclavicular adenopathy, HEART: normal S1 and S2 LUNG: clear to auscultation bilaterally LYMPH NODES: No palpable superficial adenopathy ABDOMEN: soft, nontender and no organomegaly appreciated. EXTREMITIES: No significant edema erythema or tenderness LABS: CT angiogram in February showed saddle pulmonary emboli Doppler studies of right lower extremity showed deep venous thrombosis ASSESSMENT 1. Acute saddle pulmonary embolism without acute cor pulmonale (CMS/HCC) 2. Acute deep vein thrombosis (DVT) of popliteal vein of right lower extremity (CMS/HCC) Patient is a very pleasant 68-year-old man who has multiple medical issues including some mental health issues, patient has significant lumbar radiculopathy, underwent surgery few months ago and postsurgery patient presented with saddle pulmonary emboli and right lower extremity DVT, patient also has history of provoked venous thrombosis in 2007 when he did anticoagulation appropriately for 6 months. Clearly this episode is also provoked phenomena. I explained patient and his in detail about difference between provoked thromboembolism versus unprovoked, I told them since it is a provoked phenomena, his risk of recurrence is a small as long as he is active enough, I would recommend 4 to 6 months of anticoagulation and at that time if he is not active I would recommend to continue anticoagulation may be lower dose anticoagulation like keeping INR conservatively around 2 rather than 3. I discussed with patient and his to do some coagulopathy workup because of 2 episodes, if coagulopathy workup showed some significant finding then he may have to be on anticoagulation longer period of time. I gave him reassurance that with his history and with his family history, it is unlikely that his coagulopathy workup will show any significant abnormality PLAN: Patient should continue warfarin for 6 months and then probably depending on coagulopathy workup and his activity level will make further recommendation regarding future anticoagulation I will do coagulopathy workup today, checking including factor V Leyden, prothrombin gene mutation,lupus anticoagulant, cardiolipin antibody, homocystine etc. Ranjana Sandoval MD cc: Bonilla Grant DO documented in this encounter Plan of Treatment Upcoming Encounters Date Type Department Care Team (Late st Contact Info) Description 06/17/2024 1:15 PM EDT Office Visit [facility] Hematology Oncology [address] [place] [phone] Ranjana Sandoval MD [address] [place] [address] Pending Results Name Type Priority Associated Diagnoses Date /Time Cardiolipin antibody Lab Routine Acute saddle pulmonary embolism without acute cor pulmonale (CMS/HCC) Acute deep vein thrombosis (DVT) of popliteal vein of right lower extremity (CMS/HCC) 04/07/2024 1:57 PM EST Scheduled Orders Name Type Priority Associated Diagnoses Orde r Schedule Factor V leiden Lab Routine Acute saddle pulmonary embolism without acute cor pulmonale (CMS/HCC) Acute deep vein thrombosis (DVT) of popliteal vein of right lower extremity (CMS/HCC) 1 Occurrences starting 04/07/2024 until 04/07/2025 Prothrombin [id number] mutation analysis Lab Routine Acute saddle pulmonary embolism without acute cor pulmonale (CMS/HCC) Acute deep vein thrombosis (DVT) of popliteal vein of right lower extremity (CMS/HCC) Expected: 04/07/2024, Expires: 04/07/2025 Cardiolipin antibody Lab Routine Acute saddle pulmonary embolism without acute cor pulmonale (CMS/HCC) Acute deep vein thrombosis (DVT) of popliteal vein of right lower extremity (CMS/HCC) 1 Occurrences starting 04/07/2024 until 04/07/2025 documented as of this encounter Visit Diagnoses Diagnosis Acute saddle pulmonary embolism without acute cor pulmonale (CMS/HCC) Acute deep vein thrombosis (DVT) of popliteal vein of right lower extremity (CMS/HCC) documented in this encounter Discontinued Medications Medication Sig Discontinue Reason Start Date End Da te ibuprofen (IBU-200 ORAL) Take by mouth. 025 MELATONIN ORAL Take by mouth. 04/07/2024 lidocaine (LIDODERM) 5 % patch Place 1 Patch onto the skin every 24 hours. Apply for no more than 12 hours in any 24 hour period. 04/07/2024 documented as of this encounter Historical Medications * This list may reflect changes made after this encounter. warfarin (COUMADIN) 5 mg tablet Take 1 tablet (5 mg total) by mouth. 03/04/2024 topiramate (TOPAMAX) 25 mg tablet Take 1 tablet (25 mg total) by mouth 2 times daily. 07/31/2023 metoprolol tartrate (LOPRESSOR) 25 mg tablet 03/24/2024 atorvastatin (LIPITOR) 20 mg tablet Take 1 tablet (20 mg total) by mouth daily. 12/07/2023 gabapentin (NEURONTIN) 300 mg capsule Take 1 capsule (300 mg total) by mouth daily. 07/16/2023 added in this encounter Orders Outpatient Referral Count Last Ordered Date Fir st Ordered Date AMB REFERRAL TO HEMATOLOGY / ONCOLOGY 1 documented in this encounter Care Teams Clother In Relationship Specialty Start Date End Date Bonilla Grant DO [address], [place] PCP - General Family Medicine 03/10/24 documented as of this encounter
--- OUTSIDE RECORDS SUMMARY | 2024-04-07 17:44 | XMS_ITS | Clinical Summary ---
Author Organization [facility] Address [address] [place] [address] Care Team Providers Care Pile Driving Superintendent Name Role Phone Bonilla Grant MD Primary Care Provider [phone] Allergies Active Allergy Reactions Criticality Noted Date [...] EST - 02/28/2024 8:20 PM EST Surgery [facility] [place] [facility] - Cardiac Catheterization Laboratory [address] [place] [phone] Jerry Plata MD ARTERIOGRAPHY PULMONARY SELECT-BILAT 02/28/2024 4:25 PM EST Ancillary Procedure [facility] [address] [place] [phone] Provider, File Room 02/28/2024 4:20 PM EST Ancillary Procedure [facility] [address] [place] [phone] Provider, File Room 02/28/2024 4:20 PM EST Ancillary Procedure [facility] [address] [place] [phone] Provider, File Room 02/28/2024 3:53 PM EST - 03/04/2024 5:12 PM EST Hospital Encounter [facility] [address] [place] [phone] Sotero Headley MD Schreyer, Evan K, MD Pokhrel, Kamal, MD Shah, Nirali, MD Pulmonary embolism (HCC) (Primary Dx); Acute saddle pulmonary embolism without acute cor pulmonale (HCC) Discharge Disposition: Home or Self Care 02/28/2024 Travel from Last 3 Months Social History Tobacco Use Types Packs/Day Years Used Date Smoking Tobacco: Never Passive Smoke Exposure: Never Smokeless Tobacco: Never [facility] Utilities Answer Date Recorded In the past [...] any time in the past 12 m [facility], were you homeless or living in a fpc (including now)? No 02/29/2024 Sex and Gender [...] 65 - 99 mg/dL 03/04/2024 2:38 PM [facility] Comment:Fasting: <100 mg/dL, Non-Fasting: <200 mg/dL (ADA 2004) Blood Urea Nitrogen (BUN) 16 8 - 21 mg/dL 03/04/2024 2:38 PM [facility] Creatinine 1.3 0.5 - 1.3 mg/dL 03/04/2024 2:38 PM [facility] eGFR 61 >59 03/04/2024 2:38 PM [facility] Comment:CKD-EPI (2020) in mL /min/1.73 sq meters. Sodium 140 136 - 145 mmol/L 03/04/2024 2:38 PM [facility] Potassium 4.6 3.4 - 5.3 mmol/L 03/04/2024 2:38 PM [facility] Chloride 102 98 - 107 mmol/L 03/04/2024 2:38 PM [facility] CO2 25 22 - 33 mmol/L 03/04/2024 2:38 PM [facility] Anion Gap 13 7 - 17 03/04/2024 2:38 PM [facility] Calcium 9.1 8.7 - 10.5 mg/dL 03/04/2024 2:38 PM [facility] BUN/Creatinine Ratio 12 10.0 - 25.0 Ratio 03/04/2024 2:38 PM [facility] Blood (Plasma/Serum) 03/04/2024 12:51 PM EST 03/04/2024 2:01 PM EST Mariah Messer [place] [address], [place] [address] * (ABNORMAL) proBNP, N-terminal (03/04/2024 5:56 AM EST) Only the most recent of2 resultswithin the time period is included. Pathologist [facility] [place] proBNP, N-terminal 296(H) <125 pg/mL 03/04/2024 9:02 AM EST Plasma specimen / Unknown 03/04/2024 5:56 AM EST 03/04/2024 6:30 AM EST Mariah Messer MD LAB BLOOD ORDERABLES Performing Organization Address City/[facility] [place] [address], [place] [address] * (ABNORMAL) Protime-INR (03/04/2024 5:56 AM EST) Only the most recent of6 resultswithin the time period is included. [facility] Anticoagulant WARFARIN (COUMADIN) 03/03/2024 11:00 PM EST Prothrombin Time (PT) 27.7(H) 10.0 - 13.5 seconds 03/04/2024 6:43 AM [facility] INR 2.4 03/04/2024 6:43 AM [facility] Comment:INR Therapeutic Rang es: Standard dose anticoagulant 2.0 to 3.0, High dose anticoagulant 2.5-3.5. Blood Plasma specimen / Unknown 03/04/2024 5:56 AM EST 03/04/2024 6:31 AM EST Mariah Messer MD LAB BLOOD ORDERABLES Performing Organization Address City/[facility] [place] [address], [place] [address] * (ABNORMAL) Complete Blood Count, WITHOUT Differential (routine) (03/04/2024 5:56 AM EST) Only the most recent of6 resultswithin the time period is included. [facility] White Blood Cell Count 5.8 4.0 - 11.0 Thou/uL 03/04/2024 6:35 AM [facility] Platelet Count 153 150 - 450 Thou/uL 03/04/2024 6:35 AM [facility] Hemoglobin 12.1(L) 13.0 - 17.7 g/dL 03/04/2024 6:35 AM [facility] Hematocrit 37.1(L) 39.0 - 54.0 % 03/04/2024 6:35 AM [facility] Red Blood Cell Count 3.82(L) 4.50 - 6.20 Mil/uL 03/04/2024 6:35 AM [facility] MCV 97 80 - 100 fL 03/04/2024 6:35 AM [facility] MCH 31.7(H) 27.0 - 31.0 pg 03/04/2024 6:35 AM [facility] MCHC 32.6 30.0 - 36.0 g/dL 03/04/2024 6:35 AM [facility] RDW 13.2 11.5 - 14.5 % 03/04/2024 6:35 AM [facility] MPV 10.4 7.5 - 12.5 fL 03/04/2024 6:35 AM [facility] Blood Blood specimen / Unknown 03/04/2024 5:56 AM EST 03/04/2024 6:30 AM EST Mariah Messer [place] [address], [place] [address] * Phosphorus (Routine) (03/04/2024 5:56 AM EST) Only the most recent of6 resultswithin the time period is included. Phosphorus 3.1 2.7 - 4.5 mg/dL 03/04/2024 7:02 AM [facility] Blood (Plasma/Serum) 03/04/2024 5:56 AM EST 03/04/2024 6:30 AM EST Mariah Messer [place] [address], [place] [address] * Magnesium (Routine) (03/04/2024 5:56 AM EST) Only the most recent of7 resultswithin the time period is included. Pathologist [facility] [place] Magnesium 2.0 1.6 - 2.7 mg/dL 03/04/2024 7:02 AM EST Blood (Plasma/Serum) 03/04/2024 5:56 AM EST 03/04/2024 6:30 AM EST Mariah Messer MD LAB BLOOD ORDERABLES Performing Organization Address City/State/[facility] Co de Phone Number [address] [address], [address] [address] * ECHOCARDIOGRAM COMPREHENSIVE (03/01/2024 2:41 PM EST) [...] original result was not included. ?? Department: [facility] Vascular Lab Patient: [id number] (KAREN GORDON) ?? Patient Location: [address] CPT Code: 23523 ICD-9: ?? Referring Physician: EVA MILLER Impression [...] Note Bob Gonzales MD - 03/01/2024 Department: [facility] Vascular Lab Patient: [id number] (KAREN GORDON) Patient Location: ..[address] CPT Code: 79603 ICD-9: Referring Physician: EVA MILLER Impression Critical [...] T 211(HH) <23 ng/L 02/29/2024 2:45 AM [facility] Comment:Recurring Critical R esult. Previously phoned. Delta (Change) 53(H) <3 02/29/2024 2:45 AM [facility] Comment:Decreased Blood (Plasma/Serum) 02/29/2024 1:29 AM EST 02/29/2024 1:42 AM EST Eva Miller APRN LAB BLOOD ORDERABLE S Performing Organization Address [facility] [place] [address], [place] [address] * Lactic Acid, Plasma (Routine) (02/29/2024 1:29 AM EST) Only the most recent of3 resultswithin the time period is included. Lactic Acid 1.7 0.5 - 1.9 mmol/L 02/29/2024 2:19 AM [facility] Blood Plasma specimen / Unknown 02/29/2024 1:29 AM EST 02/29/2024 1:42 AM EST Eva Miller APRN LAB BLOOD ORDERABLE S [address] [place] [address], [facility] [address] [place] [address] * (ABNORMAL) Partial Thromboplastin Time (PTT) (02/28/2024 9:13 PM EST) Pathologist [facility] [place] Anticoagulant OTHER AGENT OR UNKNOWN 02/28/2024 9:14 PM EST Partial Thromboplastin Time (PTT) 60(H) 25 - 36 seconds 02/28/2024 10:03 PM EST Blood Plasma specimen / Unknown 02/28/2024 9:13 PM EST 02/28/2024 9:45 PM EST Eva Nelsontomas YUNIEL LAB BLOOD ORDERABLE S Performing Organization Address City/State/[facility] Co de Phone Number [address] [place] [address], [place] [address] * ECG 12 lead (02/28/2024 8:52 PM EST) Only the most recent of2 resultswithin the time period is included. Systolic BP 122 mmHg EKG [facility] Diastolic BP 74 mmHg EKG [facility] Ventricular rate 98 BPM EKG Atrial rate 98 BPM EKG [facility] P-R interval 174 ms EKG [facility] QRS duration 88 ms EKG [facility] Q-T interval 366 ms EKG [facility] QTC calculation (Bazett) 467 ms EKG P axis 57 degrees EKG [facility] R axis 108 degrees EKG [facility] T axis 51 degrees EKG [facility] 02/28/2024 8:52 PM EST Narrative EKG - 02/29/2024 6:56 AM EST Normal sinus [...] Whitaker MD ECG ORDERABLES Performing Organization Address City/[facility]/ZIP Co de Phone Number EKG * (ABNORMAL) POCT Glucose, Fingerstick (02/28/2024 8:47 PM EST) Only the most recent of2 resultswithin the time period is included. POC Glucose 121(H) 65 - 99 mg/dL 02/28/2024 8:48 PM EST Blood specimen / Unknown 02/28/2024 8:47 PM EST 02/28/2024 8:48 PM EST Sotero Headley MD POINT OF CARE TEST O RDERABLES Performing Organization Address City/[facility] Co de Phone Number HOSPITAL LAB See Below * ARTERIOGRAPHY PULMONARY SELECT-BILATERAL, THROMBECTOMY ARTERIAL PRIMARY 1ST VESSEL (02/28/2024 7:21PM EST) Anatomical Region Laterality Modality Radiographic Evelyn ging Narrative 02/28/2024 7:59 PM EST Table formatting from the original result was not included. Images from the original result were not included. [facility] [place] [facility] - Cardiac Catheterization Laboratory [facility] [place] [facility] - Cardiac Catheterization Laboratory PATIENT DEMOGRAPHIC INFORMATION Name: Karen Gordon : 1955 68 y.o. Sex: male Gender: male Procedure Date: 02/28/2024 PROCEDURE DETAILS Radiographer Technologist: Jerry Plata MD Fellow: MD Alla Gallegos MD Omar Yacob, MBBS Machinist Apprentice Wood(s): none Indications for Procedure: Pulmonary embolism ?? [...] L/min/kg2 QS = 2.76 Tracings available in Payfone log report CLINICAL HISTORY 64-year-old male presents to the hospital shortness of breath found to have intermediate risk pulmonary embolism with risk enhancing features. PROCEDURE Informed consent was obtained; a procedural timeout was performed; the patient was prepped and draped in sterile fashion; Access: Right femoral vein Sheath: 24F [place] Under ultrasound guidance the right femoral vein was accessed with a 7F sheath. The vein was preclosed. A right heart catheterization was performed with a [place] Ritchie Catheter. A pigtail was used to [...] this patient that I request from a [facility] PA/CONFERENCE SERVICES DIRECTOR/fellow/staff member. Jerry Plata MD [facility] [place] 02/28/2024 ??7:34 PM Cardiac Protocol pulmonary hypertension [...] atypical angina PCI Indication: other. Indications for Diamond Blender Visit: other indications Jerry Plata MD CV ENDOVASCULAR OR DERABLES * CC RIGHT HEART CATH, CORONARY ANGIOGRAM, CC THROMBECTOMY (02/28/2024 7:21 PM EST) Anatomical Region Laterality Modality Radiographic Veelyn ging Narrative 02/28/2024 7:59 PM EST Table formatting from the original result was not included. Images from the original result were not included. [facility] [place] [facility] - Cardiac Catheterization Laboratory [facility] [place] [facility] - Cardiac Catheterization Laboratory PATIENT DEMOGRAPHIC INFORMATION Name: Karen Gordon : 1955 68 y.o. Sex: male Gender: male Procedure Date: 02/28/2024 PROCEDURE DETAILS Radiographer Technologist: Jerry Plata MD Fellow: MD Alla Gallegos MD Omar Yacob, MBBS Machinist Apprentice Wood(s): none Indications for Procedure: Pulmonary embolism ?? [...] L/min/kg2 QS = 2.76 Tracings available in Payf[employer] log report CLINICAL HISTORY 64-year-old male presents to the hospital shortness of breath found to have intermediate risk pulmonary embolism with risk enhancing features. PROCEDURE Informed consent was obtained; a procedural timeout was performed; the patient was prepped and draped in sterile fashion; Access: Right femoral vein Sheath: 24F [place] Under ultrasound guidance the right femoral vein was accessed with a 7F sheath. The vein was preclosed. A right heart catheterization was performed with a [employer] [place] Ritchie Catheter. A pigtail was used to [...] this patient that I request from a [facility] PA/CONFERENCE SERVICES DIRECTOR/fellow/staff member. Jerry Plata MD [facility] Heart [facility] [place] 02/28/2024 ??7:34 PM Cardiac Protocol pulmonary hypertension [...] atypical angina PCI Indication: other. Indications for Diamond Blender Visit: other indications Jerry Plata MD CV CARDIAC CATH OR DERABLES * (ABNORMAL) POCT O2 Saturation (AVOX) (02/28/2024 7:13 PM EST) Only the most recent of2 resultswithin the time period is included. PA 48(A) 60 - 75 % Lot Number [id number] Airplane Dispatcher Pass Pass Blood 02/28/2024 7:13 PM EST [...] 4.0 - 11.0 Thou/uL 02/28/2024 4:36 PM [facility] Platelet Count 144(L) 150 - 450 Thou/uL 02/28/2024 4:36 PM [facility] Hemoglobin 13.6 13.0 - 17.7 g/dL 02/28/2024 4:36 PM [facility] Hematocrit 41.7 39.0 - 54.0 % 02/28/2024 4:36 PM [facility] Red Blood Cell Count 4.32(L) 4.50 - 6.20 Mil/uL 02/28/2024 4:36 PM [facility] MCV 97 80 - 100 fL 02/28/2024 4:36 PM [facility] MCH 31.5(H) 27.0 - 31.0 pg 02/28/2024 4:36 PM [facility] MCHC 32.6 30.0 - 36.0 g/dL 02/28/2024 4:36 PM [facility] RDW 13.2 11.5 - 14.5 % 02/28/2024 4:36 PM [facility] MPV 9.8 7.5 - 12.5 fL 02/28/2024 4:36 PM [facility] Neutrophils Auto 76.5 % 02/27/19 25 4:36 PM [facility] Immature Granulocytes 1.8 % 02/28/2024 4:36 PM [facility] Lymphocytes Auto 14.7 % 02/27/19 4:36 PM [facility] Monocytes Auto 6.3 % 02/28/2024 4:36 PM [facility] Eosinophils Auto 0.5 % 02/27/19 4:36 PM [facility] Basophils Auto 0.2 % 02/28/2024 4:36 PM [facility] Abs Neutrophils Auto 9.60(H) 2.00 - 7.50 Thou/uL 02/28/2024 4:36 PM [facility] Abs Immature Granulocytes 0.22(H) 0.00 - 0.10 Thou/uL 02/28/2024 4:36 PM [facility] Abs Lymphocytes Auto 1.84 1.50 - 4.50 Thou/uL 02/28/2024 4:36 PM [facility] Abs Monocytes Auto 0.79 0.20 - 1.50 Thou/uL 02/28/2024 4:36 PM [facility] Abs Eosinophils Auto 0.06 0.00 - 0.70 Thou/uL 02/28/2024 4:36 PM [facility] Abs Basophils Auto 0.02 0.00 - 0.20 Thou/uL 02/28/2024 4:36 PM [facility] Blood Blood specimen / Unknown 02/28/2024 4:08 PM EST 02/28/2024 4:26 PM EST Sotero Headley MD [place] [address], [place] [address] * (ABNORMAL) Hepatic Function Panel (02/28/2024 4:08 PM EST) Alkaline Phosphatase 134(H) 45 - 128 U/L 02/28/2024 4:58 PM [facility] Aspartate Aminotrans (AST) 28 10 - 55 U/L 02/28/2024 4:58 PM [facility] Alanine Aminotrans (ALT) 30 10 - 55 U/L 02/28/2024 4:58 PM [facility] Bilirubin, Total 0.3 0.2 - 1.0 mg/dL 02/28/2024 4:58 PM [facility] Protein, Total 7.5 6.3 - 8.3 g/dL 02/28/2024 4:58 PM [facility] Albumin 3.9 3.4 - 4.8 g/dL 02/28/2024 4:58 PM [facility] Bilirubin, Direct <0.1 0 - 0.2 mg/dL 02/28/2024 4:58 PM [facility] Globulin 3.6 1.5 - 3.9 g/dL 02/28/2024 4:58 PM [facility] Albumin/Globulin Ratio 1.1 1.0 - 3.0 Ratio 02/28/2024 4:58 PM [facility] Blood (Plasma/Serum) 02/28/2024 4:08 PM EST 02/28/2024 4:26 PM EST Sotero Headley MD LAB BLOOD ORDERABLES [address] [place] [address], [address] [address] from Last 3 Months Advance Directives * Full Code (Latest Code Status on File) Date Activated Date Inactivated Comments 02/28/2024 8:48 PM * Full Code Date Activated Date Inactivated Comments 02/28/2024 7:40 PM 02/28/2024 8:48 PM Care Teams Pile Driving Superintendent Relationship Specialty Start Date End Date Bonilla Grant MD [address] [place] [address] PCP - General Psychiatry, General 02/28/24
== END 2024-04-07 15:50 | disposition home or self-care (01) ==
PROVIDERS: PCP Family Medicine; Visit Provider Anesthesiology
DX: G96.00 Cerebrospinal fluid leak, unspecified (principal); G89.4 Chronic pain syndrome; M48.061 Spinal stenosis, lumbar region without neurogenic claudication; M54.16 Radiculopathy, lumbar region; M47.816 Spondylosis without myelopathy or radiculopathy, lumbar region
CPT/HCPCS: 99213

== ENCOUNTER → 2024-04-07 15:26 | Outpatient (BNVA) | payer MEDICARE, MEDICAID, SELFPAY | PROVIDERS: PCP Family Medicine; Visit Provider Anesthesiology | DX: G96.00 Cerebrospinal fluid leak, unspecified (principal); M48.061 Spinal stenosis, lumbar region without neurogenic claudication; M54.16 Radiculopathy, lumbar region; M47.816 Spondylosis without myelopathy or radiculopathy, lumbar region; G89.4 Chronic pain syndrome; Z96.82 Presence of neurostimulator | CPT/HCPCS: 99212 ==

== ENCOUNTER 2024-04-09 13:28 | Outpatient (REF) | payer MEDICARE, MEDICAID, SELFPAY ==
--- NOTE | ~2024-04-09 | XR_ITS ---
EXAMINATION: XR LUMBOSACRAL SPINE CLINICAL INFORMATION: G89.4 - Chronic pain syndrome COMPARISON: CT lumbar spine 08/21/2022 TECHNIQUE: Three views of the lumbosacral spine. FINDINGS: There is maintained lumbar lordosis with grade 1 anterolisthesis L5 over S1 and bilateral pars defect seen on the CT lumbar spine exam. There is mild dextroscoliosis. The vertebral heights, alignment and disc heights are normal. There is moderate ventral spondylosis throughout lumbar spine. No visible acute fracture, dislocation or subluxation seen. The paravertebral soft tissues are normal. XR/XR lumbar spine 2-3V IMPRESSION: Degenerative changes at all lumbar disc levels with ventral spondylosis but no acute fracture. There is moderate dextroscoliosis lumbar spine. Grade 1 anterolisthesis L5 over S1 and bilateral pars defect, better visualized on the previous CT lumbar spine exam 08/21/2022. There is stimulator hardware overlying the left SI joint with no electrode seen in the [id number]. Electronically signed by: Christopher Hernández MD 04/10/2024 07:50 AM [facility]
--- NOTE | ~2024-04-09 | XR_ITS ---
EXAMINATION: XR THORACIC SPINE CLINICAL INFORMATION: G89.4 - Chronic pain syndrome COMPARISON: None available. Thoracic spine 04/24/2023 TECHNIQUE: 3 views of the thoracic spine were obtained. FINDINGS: There is maintained thoracic kyphosis with mild levoscoliosis lower lumbar spine. Mild loss of disc height with lateral spondylosis lower dorsal spine is noted. No acute fracture or lytic process seen.The paravertebral soft tissues are normal. XR/XR thoracic spine 2V IMPRESSION: Levoscoliosis with spondylosis lower dorsal spine. No visible acute fracture, dislocation or lytic process. Electronically signed by: Christopher Hernández MD 04/10/2024 07:43 AM [facility]
== END 2024-04-09 13:29 | disposition home or self-care (01) ==
LOC: HO.HOSX 13:28
PROVIDERS: PCP Family Medicine; Visit Provider Neurological Surgery
DX: Z13.89 Encounter for screening for other disorder (principal)
CPT/HCPCS: 72070; 72100; 99212

== ENCOUNTER 2024-04-09 13:28 | Outpatient (AMB) | payer MEDICARE, MEDICAID, SELFPAY ==
--- NOTE | 2024-04-09 13:33 | HO.SPINEOV ---
Intake Visit Reasons: CSF leak with xrays Intake Note: Mr. Guerrero is here today to discuss CSF Leak and xray results. Graphics Edit Technician Required: No Allergies oxycodone Adverse Reaction (Severe, Verified 04/07/24 15:35) vertigo sulfamethoxazole [From Bactrim] Adverse Reaction (Severe, Verified 04/07/24 15:35) AFIB trimethoprim [From Bactrim] Adverse Reaction (Severe, Verified 04/07/24 15:35) AFIB Assessment & Plan Assessment & Plan (1) Chronic pain syndrome: Code(s): G89.4 - Chronic pain syndrome Category: Medical Plan Dear colleague, On 04/09/2024, I saw per request of Dr. Lim, Carlito Guerrero for subcutaneous fluid collections. The patient had a pain pump inserted on 01/18/2024. Somewhere down the road he developed increasing swelling predominantly around the pump area. He denies symptoms of headaches nausea or vomiting. No fever. On inspection there is a firm subcutaneous fluid collection at the pain pump site. The laminotomy site has very mild swelling. Increase of abdominal pressure does not change the size of the collection. I discussed the case with Dr. Lim. If it was a spinal fluid leak, I would expect a large fluid collection at the laminotomy site and not around the pain pump side. In my opinion, the problem is either coming from a disconnection at the pain pump site or we are dealing with a rejection of the foreign body or low-grade infection. I advised Dr. Lim can to test the connection and send in the subcutaneous fluid for cultures and B- transferrin. I spent 20 minutes in his consult for examination and discussing plan of care. Augustus Feldman MD, PhD Spine Fellowship Trained Neurosurgeon Director, [facility] Orders: Orders XR lumbar spine 2-3V Today G89.4 - Chronic pain syndrome XR thoracic spine 2V Today G89.4 - Chronic pain syndrome Coding Level of Care Code Est Pt Level 3 (01593) Diagnoses Chronic pain syndrome G89.4
--- OUTSIDE RECORDS SUMMARY | 2024-04-09 16:35 | XMS_ITS | Encounter Summary ---
Author Organization [facility] Address [address] [place] [address] Care Team Providers Care Game Preserve Manager Name Role Phone Bonilla Grant DO Primary Care Provider [phone] Reason for Visit * Reason Comments Consult * Consultation (Routine) - Authorized Specialty Diagnoses / Procedures Referred By Contac t Referred To Contact Hematology and Oncology Diagnoses Acute saddle pulmonary embolism without acute cor pulmonale (CMS/HCC) Acute deep vein thrombosis (DVT) of popliteal vein of right lower extremity (CMS/HCC) Bonilla Grant DO [address], [place] Phone: tel: fax: Referral ID Status Reason Start Date Expiration Date Visits Requested Visits Authorized [id number] Authorized Specialty Services Required 03/11/2024 03/11/2025 1 1 Encounter Details Date Type Department Care Team (Late st Contact Info) Description 04/07/2024 1:00 PM EST Office Visit [facility] Hematology Oncology [address] [place] [phone] Ranjana Sandoval MD [address] [place] [address] Acute saddle pulmonary embolism without acute cor [...] deep venous thrombosis, patient was transferred from [facility] to [facility] for thrombectomy, patient was on Lovenox [...] years ago 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 He is lives with his FAMILY HISTORY: [...] Allergen Reactions Bactrim [Sulfamethoxazole-Trimethoprim] Other Bactrim [Na Ablfjvfj-xemjzimxeldsvdqy-bayoejiihwxm Oxycontin [Indigotine-oxycodone Hcl] Oxycontin [Oxycodone] PHYSICAL EXAM: [...] Description 06/17/2024 1:15 PM EDT Office Visit [facility] Hematology Oncology [address] [place] [phone] Ranjana Sandoval MD [address] [place] [address] Scheduled Orders Name Type Priority Associated Diagnoses Orde r Schedule Factor V leiden Lab Routine Acute saddle pulmonary embolism without acute cor pulmonale (CMS/HCC) Acute deep vein thrombosis (DVT) of popliteal vein of right lower extremity (CMS/HCC) 1 Occurrences starting 04/07/2024 until 04/07/2025 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 analysis Lab Routine Acute saddle pulmonary embolism without acute cor pulmonale (CMS/HCC) Acute deep vein thrombosis (DVT) of popliteal vein of right lower extremity (CMS/HCC) Expected: 04/07/2024, Expires: 04/07/2025 documented as of this encounter Results * Cardiolipin antibody (04/07/2024 1:57 PM EST) Pathologist [facility] Cardiolipin Antibody Screen Negative Negative LAB CHEMISTRY METHOD 04/08/2024 9:39 AM EST [facility] ([facility]) [facility] LAB Blood Venous blood specimen / Unknown Venipuncture / Unknown 04/07/2024 1:57 PM EST 04/07/2024 4:36 PM EST us Ranjana Sandoval MD LAB BLOOD ORDERABLES Final R esult [facility] [place] ([facility]) HOSPITAL LAB [address] [place] [address], documented in this encounter Visit Diagnoses Diagnosis Acute saddle [...] 1 documented in this encounter Care Teams Game Preserve Manager Relationship Specialty Start Date End Date Bonilla Grant DO [address] [place] [address] PCP - General Family Medicine 03/10/24 documented as of this encounter
--- OUTSIDE RECORDS SUMMARY | 2024-04-09 16:35 | XMS_ITS | Clinical Summary ---
Author Organization [facility] Address [address] [place] [address] Care Team Providers Care Nursing Aide Name Role Phone Bonilla Grant MD Primary Care Provider [phone] Allergies Active Allergy Reactions Criticality Noted Date [...] EST - 02/28/2024 8:20 PM EST Surgery [facility] Heart & Vascular [place] [facility] - Cardiac Catheterization Laboratory [address] [place] [phone] Jerry Plata MD ARTERIOGRAPHY PULMONARY SELECT-BILAT 02/28/2024 4:25 PM EST Ancillary Procedure [facility] Radiology [address] [place] [phone] Provider, File Room 02/28/2024 4:20 PM EST Ancillary Procedure [facility] Radiology [address] [place] [phone] Provider, File Room 02/28/2024 4:20 PM EST Ancillary Procedure [facility] Radiology [address] [place] [phone] Provider, File Room 02/28/2024 3:53 PM EST - 03/04/2024 5:12 PM EST Hospital Encounter [facility] [address] [place] [phone] Sotero Headley MD Schreyer, Evan K, MD Pokhrel, Kamal, MD Shah, Nirali, MD Pulmonary embolism (HCC) (Primary Dx); Acute saddle pulmonary embolism without acute cor pulmonale (HCC) Discharge Disposition: Home or Self Care 02/28/2024 Travel from Last 3 Months Social History Tobacco Use Types Packs/Day Years Used Date Smoking Tobacco: Never Passive Smoke Exposure: Never Smokeless Tobacco: Never [facility] Utilities Answer Date Recorded In the past [...] any time in the past 12 m [facility], were you homeless or living in a correction (including now)? No 02/29/2024 Sex and Gender [...] 02/28/2024 8:52 PM EST POCT GLUCOSE, FINGERSTICK (CHARGE) Routine 02/28/2024 8:47 PM EST CARDIAC CATHETERIZATION Routine 02/27/19 25 7:21 PM EST CARDIAC CATHETERIZATION Routine 02/27/19 25 7:21 PM EST ENDOVASCULAR PROCEDURE Routine 7:21 PM EST ENDOVASCULAR PROCEDURE Routine 5 7:21 PM EST POCT O2 SATURATION (AVOX) (NO CHARGE) Routine 02/28/2024 7:13 PM EST POCT O2 SATURATION (AVOX) (NO CHARGE) Routine 02/28/2024 6:37 PM EST ERROL ARCHIVE [...] 02/28/2024 4:08 PM EST POCT GLUCOSE, FINGERSTICK (CHARGE) Routine 02/28/2024 4:07 PM EST LACTIC ACID, PLASMA STAT 02/28/2024 3 :58 PM EST from Last 3 Months Results * Basic Metabolic Panel (Routine) (03/04/2024 12:51 PM EST) Only the most recent of8 resultswithin the time period is included. Glucose 92 65 - 99 mg/dL 03/04/2024 2:38 PM [facility] Comment:Fasting: <100 mg/dL, Non-Fasting: <200 mg/dL (ADA 2005) Blood Urea Nitrogen (BUN) 16 8 - 21 mg/dL 03/04/2024 2:38 PM [facility] Creatinine 1.3 0.5 - 1.3 mg/dL 03/04/2024 2:38 PM [facility] eGFR 61 >59 03/04/2024 2:38 PM [facility] Comment:CKD-EPI (2020) in mL /min/1.73 sq meters. Sodium 140 136 - 145 mmol/L 03/04/2024 2:38 PM [facility] Potassium 4.6 3.4 - 5.3 mmol/L 03/04/2024 2:38 PM [facility] Chloride 102 98 - 107 mmol/L 03/04/2024 2:38 PM [facility] CO2 25 22 - 33 mmol/L 03/04/2024 2:38 PM [facility] Anion Gap 13 7 - 17 03/04/2024 2:38 PM [facility] Calcium 9.1 8.7 - 10.5 mg/dL 03/04/2024 2:38 PM [facility] BUN/Creatinine Ratio 12 10.0 - 25.0 Ratio 03/04/2024 2:38 PM [facility] Blood (Plasma/Serum) 03/04/2024 12:51 PM EST 03/04/2024 2:01 PM EST Mariah Messer MD [place] [address], [place] [address] * (ABNORMAL) proBNP, N-terminal (03/04/2024 5:56 AM EST) Only the most recent of2 resultswithin the time period is included. [facility] proBNP, N-terminal 296(H) <125 pg/mL 03/04/2024 9:02 AM EST [facility] Plasma specimen / Unknown 03/04/2024 5:56 AM EST 03/04/2024 6:30 AM EST Mariah Messer MD LAB BLOOD ORDERABLES Performing Organization Address City/[facility] [place] [address], [place] [address] * (ABNORMAL) Protime-INR (03/04/2024 5:56 AM EST) Only the most recent of6 resultswithin the time period is included. [facility] Anticoagulant WARFARIN (COUMADIN) 03/03/2024 11:00 PM EST Prothrombin Time (PT) 27.7(H) 10.0 - 13.5 seconds 03/04/2024 6:43 AM [facility] INR 2.4 03/04/2024 6:43 AM [facility] Comment:INR Therapeutic Rang es: Standard dose anticoagulant 2.0 to 3.0, High dose anticoagulant 2.5-3.5. Blood Plasma specimen / Unknown 03/04/2024 5:56 AM EST 03/04/2024 6:31 AM EST Mariah Messer MD LAB BLOOD ORDERABLES Performing Organization Address City/[facility] [place] [address], [place] [address] * (ABNORMAL) Complete Blood Count, WITHOUT Differential (routine) (03/04/2024 5:56 AM EST) Only the most recent of6 resultswithin the time period is included. [facility] White Blood Cell Count 5.8 4.0 - 11.0 Thou/uL 03/04/2024 6:35 AM [facility] Platelet Count 153 150 - 450 Thou/uL 03/04/2024 6:35 AM [facility] Hemoglobin 12.1(L) 13.0 - 17.7 g/dL 03/04/2024 6:35 AM [facility] Hematocrit 37.1(L) 39.0 - 54.0 % 03/04/2024 6:35 AM [facility] Red Blood Cell Count 3.82(L) 4.50 - 6.20 Mil/uL 03/04/2024 6:35 AM [facility] MCV 97 80 - 100 fL 03/04/2024 6:35 AM [facility] MCH 31.7(H) 27.0 - 31.0 pg 03/04/2024 6:35 AM [facility] MCHC 32.6 30.0 - 36.0 g/dL 03/04/2024 6:35 AM [facility] RDW 13.2 11.5 - 14.5 % 03/04/2024 6:35 AM [facility] MPV 10.4 7.5 - 12.5 fL 03/04/2024 6:35 AM [facility] Blood Blood specimen / Unknown 03/04/2024 5:56 AM EST 03/04/2024 6:30 AM EST Mariah Messer MD LAB BLOOD ORDERABLES Performing Organization Address City/[facility]/[place] [address], [place] [address] * Phosphorus (Routine) (03/04/2024 5:56 AM EST) Only the most recent of6 resultswithin the time period is included. Phosphorus 3.1 2.7 - 4.5 mg/dL 03/04/2024 7:02 AM [facility] Blood (Plasma/Serum) 03/04/2024 5:56 AM EST 03/04/2024 6:30 AM EST Mariah Messer MD LAB BLOOD ORDERABLES Performing Organization Address City/[facility]/[place] [address], [place] [address] * Magnesium (Routine) (03/04/2024 5:56 AM EST) Only the most recent of7 resultswithin the time period is included. Magnesium 2.0 1.6 - 2.7 mg/dL 03/04/2024 7:02 AM EST [facility] Blood (Plasma/Serum) 03/04/2024 5:56 AM EST 03/04/2024 6:30 AM EST Mariah Messer MD LAB BLOOD ORDERABLES Performing Organization Address City/State/[facility] Co de Phone Number [address] [address], [address] [address] * ECHOCARDIOGRAM COMPREHENSIVE (03/01/2024 2:41 PM EST) Pathologist [facility] IVS Mean (F:0.6-0.9, M:0.6-1.0) 1.2 cm IVS [...] original result was not included. ?? Department: [facility] Vascular Lab Patient: [id number] (KAREN GORDON) ?? Patient Location: ..[address] CPT Code: 15320 ICD-9: ?? Referring Physician: EVA MILLER Impression [...] Note Bob Gonzales MD - 03/01/2024 Department: [facility] Vascular Lab Patient: [id number] (EVAN KAREN) Patient Location: .[address] CPT Code: 62458 ICD-9: Referring Physician: EVA MILLER Impression Critical [...] T 211(HH) <23 ng/L 02/29/2024 2:45 AM [facility] Comment:Recurring Critical R esult. Previously phoned. Delta (Change) 53(H) <3 02/29/2024 2:45 AM [facility] Comment:Decreased Blood (Plasma/Serum) 02/29/2024 1:29 AM EST 02/29/2024 1:42 AM EST Eva Miller APRN LAB BLOOD ORDERABLE S Performing Organization Address [facility]/[place] [address], [place] [address] * Lactic Acid, Plasma (Routine) (02/29/2024 1:29 AM EST) Only the most recent of3 resultswithin the time period is included. Lactic Acid 1.7 0.5 - 1.9 mmol/L 02/29/2024 2:19 AM EST [facility] Blood Plasma specimen / Unknown 02/29/2024 1:29 AM EST 02/29/2024 1:42 AM EST Eva Miller APRN [place] [address], [place] [address] * (ABNORMAL) Partial Thromboplastin Time (PTT) (02/28/2024 9:13 PM EST) Anticoagulant OTHER AGENT OR UNKNOWN 02/28/2024 9:14 PM EST Partial Thromboplastin Time (PTT) 60(H) 25 - 36 seconds 02/28/2024 10:03 PM EST [facility] Blood Plasma specimen / Unknown 02/28/2024 9:13 PM EST 02/28/2024 9:45 PM EST Eva Miller APRN LAB BLOOD ORDERABLE S Performing Organization Address City/[facility] [place] [address], [place] [address] * ECG 12 lead (02/28/2024 8:52 PM EST) Only the most recent of2 resultswithin the time period is included. Systolic BP 122 mmHg EKG [facility] Diastolic BP 74 mmHg EKG [facility] Ventricular rate 98 BPM EKG [facility] Atrial rate 98 BPM EKG [facility] P-R interval 174 ms EKG [facility] QRS duration 88 ms EKG [facility] Q-T interval 366 ms EKG [facility] QTC calculation (Bazett) 467 ms EKG [facility] P axis 57 degrees EKG [facility] R axis 108 degrees EKG [facility] T axis 51 degrees EKG [facility] 02/28/2024 8:52 PM EST Narrative EKG [...] Whitaker MD ECG ORDERABLES Performing Organization Address City/[facility]/ZIP Co de Phone Number EKG [facility] * (ABNORMAL) POCT Glucose, Fingerstick (02/28/2024 8:47 PM EST) Only the most recent of2 resultswithin the time period is included. POC Glucose 121(H) 65 - 99 mg/dL 02/28/2024 8:48 PM EST Blood specimen / Unknown 02/28/2024 8:47 PM EST 02/28/2024 8:48 PM EST Sotero Headley MD POINT OF CARE TEST O RDERABLES HOSPITAL LAB See Below * ARTERIOGRAPHY PULMONARY SELECT-BILATERAL, THROMBECTOMY ARTERIAL PRIMARY 1ST VESSEL (02/28/2024 7:21PM EST) Anatomical Region Laterality Modality Radiographic Evelyn ging Narrative 02/28/2024 7:59 PM EST Table formatting from the original result was not included. Images from the original result were not included. [facility] Heart & Vascular [place] [facility] - Cardiac Catheterization Laboratory [facility] Heart [facility] Vascular [place] [facility] - Cardiac Catheterization Laboratory PATIENT DEMOGRAPHIC INFORMATION Name: Karen Gordon : 1955 68 y.o. Sex: male Gender: male Procedure Date: 02/28/2024 PROCEDURE DETAILS Health Science Specialist: Jerry Plata MD Fellow: MD Alla Gallegos MD Omar Yacob, MBBS Licensed Occupational Therapy Assistant(s): none Indications for Procedure: Pulmonary embolism ?? [...] L/min/kg2 QS = 2.76 Tracings available in [employer] log report CLINICAL HISTORY 64-year-old male presents to the hospital shortness of breath found to have intermediate risk pulmonary embolism with risk enhancing features. PROCEDURE Informed consent was obtained; a procedural timeout was performed; the patient was prepped and draped in sterile fashion; Access: Right femoral vein Sheath: 24F Czech Under ultrasound guidance the right femoral vein was accessed with a 7F sheath. The vein was preclosed. A right heart catheterization was performed with a Wilmer Ritchie Catheter. A pigtail was used to [...] this patient that I request from a [facility] PA/CUSTOMER SERVICE MANAGER/fellow/staff member. Jerry Plata MD [facility] Heart [facility] Vascular [place] 02/28/2024 ??7:34 PM Cardiac Protocol pulmonary hypertension [...] atypical angina PCI Indication: other. Indications for Scale Model Maker Visit: other indications Jerry Plata MD CV ENDOVASCULAR OR DERABLES * CC RIGHT HEART CATH, CORONARY ANGIOGRAM, CC THROMBECTOMY (02/28/2024 7:21 PM EST) Anatomical Region Laterality Modality Radiographic Evelyn ging Narrative 02/28/2024 7:59 PM EST Table formatting from the original result was not included. Images from the original result were not included. [facility] Heart [facility] Vascular [place] [facility] - Cardiac Catheterization Laboratory [facility] Heart [facility] V[facility] [place] [facility] - Cardiac Catheterization Laboratory PATIENT DEMOGRAPHIC INFORMATION Name: Karen Gordon : 1955 68 y.o. Sex: male Gender: male Procedure Date: 02/28/2024 PROCEDURE DETAILS Health Science Specialist: Jerry Plata MD Fellow: MD Alla Gallegos MD Omar Yacob, MBBS Licensed Occupational Therapy Assistant(s): none Indications for Procedure: Pulmonary embolism ?? [...] L/min/kg2 QS = 2.76 Tracings available in [employer] log report CLINICAL HISTORY 64-year-old male presents to the hospital shortness of breath found to have intermediate risk pulmonary embolism with risk enhancing features. PROCEDURE Informed consent was obtained; a procedural timeout was performed; the patient was prepped and draped in sterile fashion; Access: Right femoral vein Sheath: 24F Czech Under ultrasound guidance the right femoral vein was accessed with a 7F sheath. The vein was preclosed. A right heart catheterization was performed with a Wilmer Ritcihe Catheter. A pigtail was used to perform [...] this patient that I request from a [facility] PA/YUNIEL/fellow/staff member. Jerry Plata MD [facility] Heart & Vascular [place] 02/28/2024 ??7:34 PM Cardiac Protocol pulmonary hypertension [...] atypical angina PCI Indication: other. Indications for Scale Model Maker Visit: other indications Jerry Plata MD CV CARDIAC CATH OR DERABLES * (ABNORMAL) POCT O2 Saturation (AVOX) (02/28/2024 7:13 PM EST) Only the most recent of2 resultswithin the time period is included. CARMINE 48(A) 60 - 75 % Lot Number [id number] Principal Scientist Pass Pass Blood 02/28/2024 7:13 PM EST [...] 4.0 - 11.0 Thou/uL 02/28/2024 4:36 PM [facility] Platelet Count 144(L) 150 - 450 Thou/uL 02/28/2024 4:36 PM [facility] Hemoglobin 13.6 13.0 - 17.7 g/dL 02/28/2024 4:36 PM [facility] Hematocrit 41.7 39.0 - 54.0 % 02/28/2024 4:36 PM [facility] Red Blood Cell Count 4.32(L) 4.50 - 6.20 Mil/uL 02/28/2024 4:36 PM [facility] MCV 97 80 - 100 fL 02/28/2024 4:36 PM [facility] MCH 31.5(H) 27.0 - 31.0 pg 02/28/2024 4:36 PM [facility] MCHC 32.6 30.0 - 36.0 g/dL 02/28/2024 4:36 PM [facility] RDW 13.2 11.5 - 14.5 % 02/28/2024 4:36 PM [facility] MPV 9.8 7.5 - 12.5 fL 02/28/2024 4:36 PM [facility] Neutrophils Auto 76.5 % 02/27/19 25 4:36 PM [facility] Immature Granulocytes 1.8 % 02/28/2024 4:36 PM [facility] Lymphocytes Auto 14.7 % 02/27/19 4:36 PM [facility] Monocytes Auto 6.3 % 02/28/2024 4:36 PM [facility] Eosinophils Auto 0.5 % 02/27/19 4:36 PM [facility] Basophils Auto 0.2 % 02/28/2024 4:36 PM [facility] Abs Neutrophils Auto 9.60(H) 2.00 - 7.50 Thou/uL 02/28/2024 4:36 PM [facility] Abs Immature Granulocytes 0.22(H) 0.00 - 0.10 Thou/uL 02/28/2024 4:36 PM [facility] Abs Lymphocytes Auto 1.84 1.50 - 4.50 Thou/uL 02/28/2024 4:36 PM [facility] Abs Monocytes Auto 0.79 0.20 - 1.50 Thou/uL 02/28/2024 4:36 PM [facility] Abs Eosinophils Auto 0.06 0.00 - 0.70 Thou/uL 02/28/2024 4:36 PM [facility] Abs Basophils Auto 0.02 0.00 - 0.20 Thou/uL 02/28/2024 4:36 PM [facility] Blood Blood specimen / Unknown 02/28/2024 4:08 PM EST 02/28/2024 4:26 PM EST Sotero Headley MD [place] [address], [place] [address] * (ABNORMAL) Hepatic Function Panel (02/28/2024 4:08 PM EST) Alkaline Phosphatase 134(H) 45 - 128 U/L 02/28/2024 4:58 PM [facility] Aspartate Aminotrans (AST) 28 10 - 55 U/L 02/28/2024 4:58 PM [facility] Alanine Aminotrans (ALT) 30 10 - 55 U/L 02/28/2024 4:58 PM [facility] Bilirubin, Total 0.3 0.2 - 1.0 mg/dL 02/28/2024 4:58 PM [facility] Protein, Total 7.5 6.3 - 8.3 g/dL 02/28/2024 4:58 PM [facility] Albumin 3.9 3.4 - 4.8 g/dL 02/28/2024 4:58 PM [facility] Bilirubin, Direct <0.1 0 - 0.2 mg/dL 02/28/2024 4:58 PM [facility] Globulin 3.6 1.5 - 3.9 g/dL 02/28/2024 4:58 PM [facility] Albumin/Globulin Ratio 1.1 1.0 - 3.0 Ratio 02/28/2024 4:58 PM [facility] Blood (Plasma/Serum) 02/28/2024 4:08 PM EST 02/28/2024 4:26 PM EST Sotero Headley MD LAB BLOOD ORDERABLES Performing Organization Address City/State/[facility] Co de Phone Number [address] [address], [facility] [address] [place] [address] from Last 3 Months Advance Directives * Full Code (Latest Code Status on File) Date Activated Date Inactivated Comments 02/28/2024 8:48 PM * Full Code Date Activated Date Inactivated Comments 02/28/2024 7:40 PM 02/28/2024 8:48 PM Care Teams Nursing Aide Relationship Specialty Start Date End Date Bonilla Grant MD [address] [place] [address] PCP - General Psychiatry, General 02/28/24
--- OUTSIDE RECORDS SUMMARY | 2024-04-09 16:35 | XMS_ITS | Clinical Summary ---
Author Organization [facility] Address [address] [place] [address] Phone Care Team Providers Care Television Cable Installer Name Role Phone Bonilla Grant DO Primary Care Provider [phone] Allergies Active Allergy Reactions Criticality Noted Date [...] Description 04/07/2024 1:00 PM EST Office Visit [facility] Hematology Oncology [address] [place] [address] Ranjana Sandoval MD Acute saddle [...] Description 06/17/2024 1:15 PM EDT Office Visit [facility] Hematology Oncology [address] [place] [phone] Ranjana Sandoval MD [address] [place] [address] Health Maintenance Due Date Last Done Comments [...] Vaccine (#1) 2023 Colorectal Cancer Screening: Colonoscopy 03/02/2026 03/02/2021 Zoster Vaccines Completed 05/26/2021, 10/01/2020 HIB [...] popliteal vein of right lower extremity (CMS/HCC) CARDIOLIPIN ANTIBODY Routine 04/07/2024 1:57 PM EST Acute saddle [...] K/mcL LAB HEMETOLOGY METHOD 04/07/2024 4:48 PM [facility] LAB RBC 4.10(L) 4.50 - 5.50 M/mcL LAB HEMETOLOGY METHOD 04/07/2024 4:48 PM [facility] LAB Hemoglobin 12.6(L) 13.5 - 17.5 g/dL LAB HEMETOLOGY METHOD 04/07/2024 4:48 PM [facility] LAB Hematocrit 39.4(L) 42.0 - 54.0 % LAB HEMETOLOGY METHOD 04/07/2024 4:48 PM [facility] LAB MCV 96.1 79.0 - 98.0 FL LAB HEMETOLOGY METHOD 04/07/2024 4:48 PM [facility] LAB MCH 30.7 27.0 - 32.0 pcg LAB HEMETOLOGY METHOD 04/07/2024 4:48 PM [facility] LAB MCHC 32.0 32.0 - 37.0 g/dL LAB HEMETOLOGY METHOD 04/07/2024 4:48 PM [facility] LAB RDW 13.2 11.0 - 15.0 % LAB HEMETOLOGY METHOD 04/07/2024 4:48 PM [facility] LAB Platelets 181 130 - 400 K/mcL LAB HEMETOLOGY METHOD 04/07/2024 4:48 PM [facility] LAB MPV 10.0 7.0 - 11.0 FL LAB HEMETOLOGY METHOD 04/07/2024 4:48 PM [facility] LAB NRBC 0.0 <1.0 % LAB HEMETOLOGY METHOD 04/07/2024 4:48 PM [facility] LAB NRBC Absolute 0.00 <0.10 K/mcL LAB HEMETOLOGY METHOD 04/07/2024 4:48 PM [facility] LAB Neutrophils Relative 51.4 % LAB HEMETOLOGY METHOD 04/07/2024 4:48 PM [facility] LAB Lymphocytes Relative 31.6 % LAB HEMETOLOGY METHOD 04/07/2024 4:48 PM [facility] LAB Monocytes Relative 9.6 % LAB HEMETOLOGY METHOD 04/07/2024 4:48 PM [facility] LAB Eosinophils Relative 6.8 % LAB HEMETOLOGY METHOD 04/07/2024 4:48 PM [facility] LAB Basophils Relative 0.4 % LAB HEMETOLOGY METHOD 04/07/2024 4:48 PM [facility] LAB Immature Granulocytes Relative 0.2 % LAB HEMETOLOGY METHOD 04/07/2024 4:48 PM [facility] LAB Neutrophils Absolute 2.80 1.50 - 7.00 K/mcL LAB HEMETOLOGY METHOD 04/07/2024 4:48 PM EST [facility] LAB Lymphocytes Absolute 1.72 1.00 - 5.00 K/mcL LAB HEMETOLOGY METHOD 04/07/2024 4:48 PM EST [facility] LAB Monocytes Absolute 0.52 0.20 - 1.00 K/mcL LAB HEMETOLOGY METHOD 04/07/2024 4:48 PM EST [facility] LAB Eosinophils Absolute 0.37 0.00 - 0.50 K/[facility] LAB HEMETOLOGY METHOD 04/07/2024 4:48 PM EST [facility] LAB Basophils Absolute 0.02 0.00 - 0.20 K/[facility] LAB HEMETOLOGY METHOD 04/07/2024 4:48 PM EST [facility] LAB Immature Granulocytes Absolute 0.01 0.00 - 0.03 K/[facility] LAB HEMETOLOGY METHOD 04/07/2024 4:48 PM EST [facility] LAB Blood Venous blood specimen / Unknown Venipuncture / Unknown 04/07/2024 1:57 PM EST 04/07/2024 4:36 PM EST us Ranjana Sandoval MD LAB BLOOD ORDERABLES Final R esult Performing Organization Address City/[facility] Co de Phone Number [facility] LAB [address] [place] [address], * Cardiolipin antibody (04/07/2024 1:57 PM EST) Cardiolipin Antibody Screen Negative Negative LAB CHEMISTRY METHOD 04/08/2024 9:39 AM EST [facility] LAB Blood Venous blood specimen / Unknown Venipuncture / Unknown 04/07/2024 1:57 PM EST 04/07/2024 4:36 PM EST us Ranjana Sandoval MD LAB BLOOD ORDERABLES Final R esult [facility] [address] [place] [address], * Colonoscopy (03/02/2021) HM Colonoscopy no interpretation abstracted Anatomical Region Laterality Modality Other us Historical Provider MD HEALTH MAINTENANCE Final Result from Last 3 Months or Most Recently Relevant to Health Maintenance Insurance [place] - [place] MEDICARE AD[place]ANTAGE [place] Care Teams Television Cable Installer Relationship Specialty Start Date End Date Bonilla Grant DO [address] [place], [place] PCP - General Family Medicine 03/10/24
== END 2024-04-09 14:41 | disposition home or self-care (01) ==
PROVIDERS: PCP Family Medicine; Visit Provider Neurological Surgery
DX: G89.4 Chronic pain syndrome (principal)
CPT/HCPCS: 99213

== ENCOUNTER → 2024-04-09 13:37 | Outpatient (BNV) | payer MEDICARE, MEDICAID, SELFPAY | PROVIDERS: PCP Family Medicine; Visit Provider Radiology Diagnostic Radiology | DX: M54.9 Dorsalgia, unspecified (principal); G89.4 Chronic pain syndrome | CPT/HCPCS: 72070; 72100 ==

== ENCOUNTER 2024-04-09 14:20 | Outpatient (REF) | payer MEDICARE, MEDICAID, SELFPAY ==
--- OUTSIDE RECORDS SUMMARY | 2024-04-09 17:46 | XMS_ITS | Clinical Summary ---
Author Organization [facility] Address [address] [place] [address] Care Team Providers Care Certified Flight Instructor Name Role Phone Bonilla Grant MD Primary Care Provider [phone] Allergies Active Allergy Reactions Criticality Noted Date [...] EST - 02/28/2024 8:20 PM EST Surgery [facility] Heart [facility] Vascular [place] [facility] - Cardiac Catheterization Laboratory [address] [place] [phone] Jerry Plata MD ARTERIOGRAPHY PULMONARY SELECT-BILAT 02/28/2024 4:25 PM EST Ancillary Procedure [facility] Radiology [address] [place] [phone] Provider, File Room 02/28/2024 4:20 PM EST Ancillary Procedure [facility] Radiology [address] [place] [phone] Provider, File Room 02/28/2024 4:20 PM EST Ancillary Procedure [facility] Radiology [address] [place] [phone] Provider, File Room 02/28/2024 3:53 PM EST - 03/04/2024 5:12 PM EST Hospital Encounter [facility] [address] [place] [phone] Sotero Headley MD Schreyer, Evan K, MD Pokhrel, Kamal, MD Shah, Nirali, MD Pulmonary embolism (HCC) (Primary Dx); Acute saddle pulmonary embolism without acute cor pulmonale (HCC) Discharge Disposition: Home or Self Care 02/28/2024 Travel from Last 3 Months Social History Tobacco Use Types Packs/Day Years Used Date Smoking Tobacco: Never Passive Smoke Exposure: Never Smokeless Tobacco: Never [facility] Utilities Answer Date Recorded In the [...] any time in the past 12 m [facility], were you homeless or living in a alf (including now)? No 02/29/2024 Sex and Gender [...] 65 - 99 mg/dL 03/04/2024 2:38 PM [facility] Comment:Fasting: <100 mg/dL, Non-Fasting: <200 mg/dL (ADA 2005) Blood Urea Nitrogen (BUN) 16 8 - 21 mg/dL 03/04/2024 2:38 PM [facility] Creatinine 1.3 0.5 - 1.3 mg/dL 03/04/2024 2:38 PM [facility] eGFR 61 >59 03/04/2024 2:38 PM [facility] Comment:CKD-EPI (2020) in mL /min/1.73 sq meters. Sodium 140 136 - 145 mmol/L 03/04/2024 2:38 PM [facility] Potassium 4.6 3.4 - 5.3 mmol/L 03/04/2024 2:38 PM [facility] Chloride 102 98 - 107 mmol/L 03/04/2024 2:38 PM [facility] CO2 25 22 - 33 mmol/L 03/04/2024 2:38 PM [facility] Anion Gap 13 7 - 17 03/04/2024 2:38 PM [facility] Calcium 9.1 8.7 - 10.5 mg/dL 03/04/2024 2:38 PM [facility] BUN/Creatinine Ratio 12 10.0 - 25.0 Ratio 03/04/2024 2:38 PM [facility] Blood (Plasma/Serum) 03/04/2024 12:51 PM EST 03/04/2024 2:01 PM EST Mariah Messer MD [place] [address], [place] [address] * (ABNORMAL) proBNP, N-terminal (03/04/2024 5:56 AM EST) Only the most recent of2 resultswithin the time period is included. [facility] proBNP, N-terminal 296(H) <125 pg/mL 03/04/2024 9:02 AM EST [facility] Plasma specimen / Unknown 03/04/2024 5:56 AM EST 03/04/2024 6:30 AM EST Mariah Messer MD LAB BLOOD ORDERABLES Performing Organization Address City/[facility] [place] [address], [place] [address] * (ABNORMAL) Protime-INR (03/04/2024 5:56 AM EST) Only the most recent of6 resultswithin the time period is included. [facility] Anticoagulant WARFARIN (COUMADIN) 03/03/2024 11:00 PM EST Prothrombin Time (PT) 27.7(H) 10.0 - 13.5 seconds 03/04/2024 6:43 AM [facility] INR 2.4 03/04/2024 6:43 AM [facility] Comment:INR Therapeutic Rang es: Standard dose anticoagulant 2.0 to 3.0, High dose anticoagulant 2.5-3.5. Blood Plasma specimen / Unknown 03/04/2024 5:56 AM EST 03/04/2024 6:31 AM EST Mariah Messer MD LAB BLOOD ORDERABLES Performing Organization Address City/[facility] [place] [address], [place] [address] * (ABNORMAL) Complete Blood Count, WITHOUT Differential (routine) (03/04/2024 5:56 AM EST) Only the most recent of6 resultswithin the time period is included. [facility] White Blood Cell Count 5.8 4.0 - 11.0 Thou/uL 03/04/2024 6:35 AM [facility] Platelet Count 153 150 - 450 Thou/uL 03/04/2024 6:35 AM [facility] Hemoglobin 12.1(L) 13.0 - 17.7 g/dL 03/04/2024 6:35 AM [facility] Hematocrit 37.1(L) 39.0 - 54.0 % 03/04/2024 6:35 AM [facility] Red Blood Cell Count 3.82(L) 4.50 - 6.20 Mil/uL 03/04/2024 6:35 AM [facility] MCV 97 80 - 100 fL 03/04/2024 6:35 AM [facility] MCH 31.7(H) 27.0 - 31.0 pg 03/04/2024 6:35 AM [facility] MCHC 32.6 30.0 - 36.0 g/dL 03/04/2024 6:35 AM [facility] RDW 13.2 11.5 - 14.5 % 03/04/2024 6:35 AM [facility] MPV 10.4 7.5 - 12.5 fL 03/04/2024 6:35 AM [facility] Blood Blood specimen / Unknown 03/04/2024 5:56 AM EST 03/04/2024 6:30 AM EST Mariah Messer MD LAB BLOOD ORDERABLES Performing Organization Address City/[facility]/[place] [address], [place] [address] * Phosphorus (Routine) (03/04/2024 5:56 AM EST) Only the most recent of6 resultswithin the time period is included. Phosphorus 3.1 2.7 - 4.5 mg/dL 03/04/2024 7:02 AM [facility] Blood (Plasma/Serum) 03/04/2024 5:56 AM EST 03/04/2024 6:30 AM EST Mariah Messer MD LAB BLOOD ORDERABLES Performing Organization Address City/[facility]/[place] [address], [place] [address] * Magnesium (Routine) (03/04/2024 5:56 AM EST) Only the most recent of7 resultswithin the time period is included. Magnesium 2.0 1.6 - 2.7 mg/dL 03/04/2024 7:02 AM EST [facility] Blood (Plasma/Serum) 03/04/2024 5:56 AM EST 03/04/2024 6:30 AM EST Mariah Messer MD LAB BLOOD ORDERABLES Performing Organization Address City/State/[facility] Co de Phone Number [address] [address], [address] [address] * ECHOCARDIOGRAM COMPREHENSIVE (03/01/2024 2:41 PM EST) Pathologist [facility] IVS Mean (F:0.6-0.9, M:0.6-1.0) 1.2 [...] original result was not included. ?? Department: [facility] Vascular Lab Patient: [id number] (KAREN GORDON) ?? Patient Location: ..[address] CPT Code: 49979 ICD-9: ?? Referring Physician: EVA MILLER Impression [...] Note Bob Gonzales MD - 03/01/2024 Department: [facility] Vascular Lab Patient: [id number] (EVAN KAREN) Patient Location: [address] CPT Code: 53056 ICD-9: Referring Physician: EVA MILLER Impression Critical [...] T 211(HH) <23 ng/L 02/29/2024 2:45 AM [facility] Comment:Recurring Critical R esult. Previously phoned. Delta (Change) 53(H) <3 02/29/2024 2:45 AM [facility] Comment:Decreased Blood (Plasma/Serum) 02/29/2024 1:29 AM EST 02/29/2024 1:42 AM EST Eva Miller APRN LAB BLOOD ORDERABLE S Performing Organization Address [facility]/[place] [address], [place] [address] * Lactic Acid, Plasma (Routine) (02/29/2024 1:29 AM EST) Only the most recent of3 resultswithin the time period is included. Lactic Acid 1.7 0.5 - 1.9 mmol/L 02/29/2024 2:19 AM EST [facility] Blood Plasma specimen / Unknown 02/29/2024 1:29 AM EST 02/29/2024 1:42 AM EST Eva Miller APRN [place] [address], [place] [address] * (ABNORMAL) Partial Thromboplastin Time (PTT) (02/28/2024 9:13 PM EST) Anticoagulant OTHER AGENT OR UNKNOWN 02/28/2024 9:14 PM EST Partial Thromboplastin Time (PTT) 60(H) 25 - 36 seconds 02/28/2024 10:03 PM EST [facility] Blood Plasma specimen / Unknown 02/28/2024 9:13 PM EST 02/28/2024 9:45 PM EST Eva Miller APRN LAB BLOOD ORDERABLE S Performing Organization Address City/[facility] [place] [address], [place] [address] * ECG 12 lead (02/28/2024 8:52 PM EST) Only the most recent of2 resultswithin the time period is included. Systolic BP 122 mmHg EKG [facility] Diastolic BP 74 mmHg EKG [facility] Ventricular rate 98 BPM EKG [facility] Atrial rate 98 BPM EKG [facility] P-R interval 174 ms EKG [facility] QRS duration 88 ms EKG [facility] Q-T interval 366 ms EKG [facility] QTC calculation (Bazett) 467 ms EKG [facility] P axis 57 degrees EKG [facility] R axis 108 degrees EKG [facility] T axis 51 degrees EKG [facility] 02/28/2024 8:52 PM EST Narrative EKG [facility] - 02/29/2024 6:56 AM EST Normal [...] Whitaker MD ECG ORDERABLES Performing Organization Address City/[facility]/ZIP Co de Phone Number EKG [facility] * (ABNORMAL) POCT Glucose, Fingerstick (02/28/2024 [...] from the original result were not included. [facility] Heart [facility] Vascular [place] [facility] - Cardiac Catheterization Laboratory [facility] Heart [facility] [place] [facility] - Cardiac Catheterization Laboratory PATIENT DEMOGRAPHIC INFORMATION Name: Karen Gordon : 1955 68 y.o. Sex: male Gender: male Procedure Date: 02/28/2024 PROCEDURE DETAILS Para Machine Operator: Jerry Plata MD Fellow: MD Alla Gallegos MD Omar Yacob, MBBS Bark Fitter(s): none Indications for Procedure: Pulmonary embolism ?? [...] L/min/kg2 QS = 2.76 Tracings available in [employer] log report CLINICAL HISTORY 64-year-old male presents to the hospital shortness of breath found to have intermediate risk pulmonary embolism with risk enhancing features. PROCEDURE Informed consent was obtained; a procedural timeout was performed; the patient was prepped and draped in sterile fashion; Access: Right femoral vein Sheath: 24F Mexican Under ultrasound guidance the right femoral vein was accessed with a 7F sheath. The vein was preclosed. A right heart catheterization was performed with a Farnam Ritchie Catheter. A pigtail was used to [...] this patient that I request from a [facility] PA/ARBORER/fellow/staff member. Jerry Plata MD [facility] Heart [facility] Vascular [place] 02/28/2024 ??7:34 PM Cardiac Protocol pulmonary hypertension [...] atypical angina PCI Indication: other. Indications for Chainstitch Pants Outseamer Visit: other indications Jerry Plata MD CV ENDOVASCULAR OR DERABLES * CC RIGHT HEART CATH, CORONARY ANGIOGRAM, CC THROMBECTOMY (02/28/2024 7:21 PM EST) Anatomical Region Laterality Modality Radiographic Evelyn ging Narrative 02/28/2024 7:59 PM EST Table formatting from the original result was not included. Images from the original result were not included. [facility] Heart [facility] Vascular [place] [facility] - Cardiac Catheterization Laboratory [facility] Heart [facility] [place] [facility] - Cardiac Catheterization Laboratory PATIENT DEMOGRAPHIC INFORMATION Name: Karen Gordon : 1955 68 y.o. Sex: male Gender: male Procedure Date: 02/28/2024 PROCEDURE DETAILS Para Machine Operator: Jerry Plata MD Fellow: MD Alla Gallegos MD Omar Yacob, MBBS Bark Fitter(s): none Indications for Procedure: Pulmonary embolism ?? [...] L/min/kg2 QS = 2.76 Tracings available in [employer] log report CLINICAL HISTORY 64-year-old male presents to the hospital shortness of breath found to have intermediate risk pulmonary embolism with risk enhancing features. PROCEDURE Informed consent was obtained; a procedural timeout was performed; the patient was prepped and draped in sterile fashion; Access: Right femoral vein Sheath: 24F Mexican Under ultrasound guidance the right femoral vein was accessed with a 7F sheath. The vein was preclosed. A right heart catheterization was performed with a Farnam Ritchie Catheter. A pigtail was used to [...] this patient that I request from a [facility] PA/YUNIEL/fellow/staff member. Jerry Plata MD [facility] Heart [facility] Vascular [place] 02/28/2024 ??7:34 PM Cardiac Protocol pulmonary hypertension [...] atypical angina PCI Indication: other. Indications for Chainstitch Pants Outseamer Visit: other indications Jerry Plata MD CV CARDIAC CATH OR DERABLES * (ABNORMAL) POCT O2 Saturation (AVOX) (02/28/2024 7:13 PM EST) Only the most recent of2 resultswithin the time period is included. CARMINE 48(A) 60 - 75 % Lot Number [id number] Strip Polisher Pass Pass Blood 02/28/2024 7:13 PM EST [...] 4.0 - 11.0 Thou/uL 02/28/2024 4:36 PM [facility] Platelet Count 144(L) 150 - 450 Thou/uL 02/28/2024 4:36 PM [facility] Hemoglobin 13.6 13.0 - 17.7 g/dL 02/28/2024 4:36 PM [facility] Hematocrit 41.7 39.0 - 54.0 % 02/28/2024 4:36 PM [facility] Red Blood Cell Count 4.32(L) 4.50 - 6.20 Mil/uL 02/28/2024 4:36 PM [facility] MCV 97 80 - 100 fL 02/28/2024 4:36 PM [facility] MCH 31.5(H) 27.0 - 31.0 pg 02/28/2024 4:36 PM [facility] MCHC 32.6 30.0 - 36.0 g/dL 02/28/2024 4:36 PM [facility] RDW 13.2 11.5 - 14.5 % 02/28/2024 4:36 PM [facility] MPV 9.8 7.5 - 12.5 fL 02/28/2024 4:36 PM [facility] Neutrophils Auto 76.5 % 02/27/19 25 4:36 PM [facility] Immature Granulocytes 1.8 % 02/28/2024 4:36 PM [facility] Lymphocytes Auto 14.7 % 02/27/19 4:36 PM [facility] Monocytes Auto 6.3 % 02/28/2024 4:36 PM [facility] Eosinophils Auto 0.5 % 02/27/19 4:36 PM [facility] Basophils Auto 0.2 % 02/28/2024 4:36 PM [facility] Abs Neutrophils Auto 9.60(H) 2.00 - 7.50 Thou/uL 02/28/2024 4:36 PM [facility] Abs Immature Granulocytes 0.22(H) 0.00 - 0.10 Thou/uL 02/28/2024 4:36 PM [facility] Abs Lymphocytes Auto 1.84 1.50 - 4.50 Thou/uL 02/28/2024 4:36 PM [facility] Abs Monocytes Auto 0.79 0.20 - 1.50 Thou/uL 02/28/2024 4:36 PM [facility] Abs Eosinophils Auto 0.06 0.00 - 0.70 Thou/uL 02/28/2024 4:36 PM [facility] Abs Basophils Auto 0.02 0.00 - 0.20 Thou/uL 02/28/2024 4:36 PM [facility] Blood Blood specimen / Unknown 02/28/2024 4:08 PM EST 02/28/2024 4:26 PM EST Sotero Headley MD [place] [address], [place] [address] * (ABNORMAL) Hepatic Function Panel (02/28/2024 4:08 PM EST) Alkaline Phosphatase 134(H) 45 - 128 U/L 02/28/2024 4:58 PM [facility] Aspartate Aminotrans (AST) 28 10 - 55 U/L 02/28/2024 4:58 PM [facility] Alanine Aminotrans (ALT) 30 10 - 55 U/L 02/28/2024 4:58 PM [facility] Bilirubin, Total 0.3 0.2 - 1.0 mg/dL 02/28/2024 4:58 PM [facility] Protein, Total 7.5 6.3 - 8.3 g/dL 02/28/2024 4:58 PM [facility] Albumin 3.9 3.4 - 4.8 g/dL 02/28/2024 4:58 PM [facility] Bilirubin, Direct <0.1 0 - 0.2 mg/dL 02/28/2024 4:58 PM [facility] Globulin 3.6 1.5 - 3.9 g/dL 02/28/2024 4:58 PM [facility] Albumin/Globulin Ratio 1.1 1.0 - 3.0 Ratio 02/28/2024 4:58 PM [facility] Blood (Plasma/Serum) 02/28/2024 4:08 PM EST 02/28/2024 4:26 PM EST Sotero Headley MD LAB BLOOD ORDERABLES Performing Organization Address City/State/[facility] Co de Phone Number [address] [address], [facility] [address] [place] [address] from Last 3 Months Advance Directives * Full Code (Latest Code Status on File) Date Activated Date Inactivated Comments 02/28/2024 8:48 PM * Full Code Date Activated Date Inactivated Comments 02/28/2024 7:40 PM 02/28/2024 8:48 PM Care Teams Certified Flight Instructor Relationship Specialty Start Date End Date Bonilla Grant MD [address] [place] [address] PCP - General Psychiatry, General 02/28/24
--- OUTSIDE RECORDS SUMMARY | 2024-04-09 17:46 | XMS_ITS | Encounter Summary ---
Author Organization [facility] Address [address] [place] [address] Care Team Providers Care Lamp Cleaner Street Light Name Role Phone Bonilla Grant DO Primary Care Provider [phone] Reason for Visit * Reason Comments Consult * Consultation (Routine) - Authorized Specialty Diagnoses / Procedures Referred By Contac t Referred To Contact Hematology and Oncology Diagnoses Acute saddle pulmonary embolism without acute cor pulmonale (CMS/HCC) Acute deep vein thrombosis (DVT) of popliteal vein of right lower extremity (CMS/HCC) Bonilla Grant DO [address] [place], [place] Phone: tel: fax: Referral ID Status Reason Start Date Expiration Date Visits Requested Visits Authorized [id number] Authorized Specialty Services Required 03/11/2024 03/11/2025 1 1 Encounter Details Date Type Department Care Team (Late st Contact Info) Description 04/07/2024 1:00 PM EST Office Visit [facility] Hematology Oncology [address] [place] [phone] Ranjana Sandoval MD [address] [place] [address] Acute saddle pulmonary embolism without acute cor [...] deep venous thrombosis, patient was transferred from [facility] to [facility] for thrombectomy, patient was on Lovenox [...] years ago 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 He is lives with his FAMILY HISTORY: [...] Allergen Reactions Bactrim [Sulfamethoxazole-Trimethoprim] Other Bactrim [Na Hveonamr-lgizzbgswodpppoi-uwwuexxdepuc Oxycontin [Indigotine-oxycodone Hcl] Oxycontin [Oxycodone] PHYSICAL EXAM: [...] Description 06/17/2024 1:15 PM EDT Office Visit [facility] Hematology Oncology [address] [place] [phone] Ranjana Sandoval MD [address] [place] [address] Scheduled Orders Name Type Priority Associated Diagnoses Orde r Schedule Factor V leiden Lab Routine Acute saddle pulmonary embolism without acute cor pulmonale (CMS/HCC) Acute deep vein thrombosis (DVT) of popliteal vein of right lower extremity (CMS/HCC) 1 Occurrences starting 04/07/2024 until 04/07/2025 Prothrombin [id number] mutation analysis Lab Routine Acute saddle pulmonary embolism without acute cor pulmonale (CMS/HCC) Acute deep vein thrombosis (DVT) of popliteal vein of right lower extremity (CMS/HCC) Expected: 04/07/2024, Expires: 04/07/2025 documented as of this encounter Results * Cardiolipin antibody (04/07/2024 1:57 PM EST) Pathologist [facility] Department Cardiolipin Antibody Screen Negative Negative LAB CHEMISTRY METHOD 04/08/2024 9:39 AM EST [facility] ([facility]) [facility] LAB Blood Venous blood specimen / Unknown Venipuncture / Unknown 04/07/2024 1:57 PM EST 04/07/2024 4:36 PM EST us Ranjana Sandoval MD LAB BLOOD ORDERABLES Final R esult [facility] [place] ([facility]) HOSPITAL LAB [address] [place] [address], documented in this encounter Visit Diagnoses Diagnosis [...] 1 documented in this encounter Care Teams Lamp Cleaner Street Light Relationship Specialty Start Date End Date Bonilla Grant DO [address] [place] [address] PCP - General Family Medicine 03/10/24 documented as of this encounter
--- OUTSIDE RECORDS SUMMARY | 2024-04-09 17:46 | XMS_ITS | Clinical Summary ---
Author Organization [facility] Address [address] [place] [address] Phone Care Team Providers Care Tours Hostess Name Role Phone Bonilla Grant DO Primary Care Provider [phone] Allergies Active Allergy Reactions Criticality Noted Date [...] Description 04/07/2024 1:00 PM EST Office Visit [facility] Hematology Oncology [address] [place] [address] Ranjana Sandoval MD Acute saddle [...] Description 06/17/2024 1:15 PM EDT Office Visit [facility] Hematology Oncology [address] [place] [phone] Ranjana Sandoval MD [address] [place] [address] Health Maintenance Due Date Last Done Comments [...] K/mcL LAB HEMETOLOGY METHOD 04/07/2024 4:48 PM [facility] RBC 4.10(L) 4.50 - 5.50 M/mcL LAB HEMETOLOGY METHOD 04/07/2024 4:48 PM [facility] Hemoglobin 12.6(L) 13.5 - 17.5 g/dL LAB HEMETOLOGY METHOD 04/07/2024 4:48 PM [facility] Hematocrit 39.4(L) 42.0 - 54.0 % LAB HEMETOLOGY METHOD 04/07/2024 4:48 PM [facility] MCV 96.1 79.0 - 98.0 FL LAB HEMETOLOGY METHOD 04/07/2024 4:48 PM [facility] MCH 30.7 27.0 - 32.0 pcg LAB HEMETOLOGY METHOD 04/07/2024 4:48 PM [facility] MCHC 32.0 32.0 - 37.0 g/dL LAB HEMETOLOGY METHOD 04/07/2024 4:48 PM [facility] RDW 13.2 11.0 - 15.0 % LAB HEMETOLOGY METHOD 04/07/2024 4:48 PM [facility] Platelets 181 130 - 400 K/mcL LAB HEMETOLOGY METHOD 04/07/2024 4:48 PM [facility] MPV 10.0 7.0 - 11.0 FL LAB HEMETOLOGY METHOD 04/07/2024 4:48 PM [facility] NRBC 0.0 <1.0 % LAB HEMETOLOGY METHOD 04/07/2024 4:48 PM [facility] NRBC Absolute 0.00 <0.10 K/mcL LAB HEMETOLOGY METHOD 04/07/2024 4:48 PM [facility] Neutrophils Relative 51.4 % LAB HEMETOLOGY METHOD 04/07/2024 4:48 PM [facility] Lymphocytes Relative 31.6 % LAB HEMETOLOGY METHOD 04/07/2024 4:48 PM [facility] Monocytes Relative 9.6 % LAB HEMETOLOGY METHOD 04/07/2024 4:48 PM [facility] Eosinophils Relative 6.8 % LAB HEMETOLOGY METHOD 04/07/2024 4:48 PM [facility] Basophils Relative 0.4 % LAB HEMETOLOGY METHOD 04/07/2024 4:48 PM [facility] Immature Granulocytes Relative 0.2 % LAB HEMETOLOGY METHOD 04/07/2024 4:48 PM [facility] Neutrophils Absolute 2.80 1.50 - 7.00 K/mcL LAB HEMETOLOGY METHOD 04/07/2024 4:48 PM EST [facility] Lymphocytes Absolute 1.72 1.00 - 5.00 K/mcL LAB HEMETOLOGY METHOD 04/07/2024 4:48 PM EST [facility] Monocytes Absolute 0.52 0.20 - 1.00 K/mcL LAB HEMETOLOGY METHOD 04/07/2024 4:48 PM EST [facility] Eosinophils Absolute 0.37 0.00 - 0.50 K/[facility] LAB HEMETOLOGY METHOD 04/07/2024 4:48 PM EST [facility] Basophils Absolute 0.02 0.00 - 0.20 K/[facility] LAB HEMETOLOGY METHOD 04/07/2024 4:48 PM EST [facility] Immature Granulocytes Absolute 0.01 0.00 - 0.03 K/[facility] LAB HEMETOLOGY METHOD 04/07/2024 4:48 PM EST [facility] Blood Venous blood specimen / Unknown Venipuncture / Unknown 04/07/2024 1:57 PM EST 04/07/2024 4:36 PM EST us Ranjana Sandoval MD LAB BLOOD ORDERABLES Final R esult Performing Organization Address City/[facility] Co de Phone Number [facility] [address] [place] [address], * Cardiolipin antibody (04/07/2024 1:57 PM EST) Cardiolipin Antibody Screen Negative Negative LAB CHEMISTRY METHOD 04/08/2024 9:39 AM EST [facility] Blood Venous blood specimen / Unknown Venipuncture / Unknown 04/07/2024 1:57 PM EST 04/07/2024 4:36 PM EST us Ranjana Sandoval MD LAB BLOOD ORDERABLES Final R esult [facility] [address] [place] [address], * Colonoscopy (03/02/2021) HM Colonoscopy no interpretation abstracted Anatomical Region Laterality Modality Other us Historical Provider MD HEALTH MAINTENANCE Final Result from Last 3 Months or Most Recently Relevant to Health Maintenance Insurance BLUE CROSS - [place] MEDICARE AD[place]ANTAGE [place]ICA[place] - [place] Care Teams Tours Hostess Relationship Specialty Start Date End Date Bonilla Grant DO [address], [place] PCP - General Family Medicine 03/10/24
[2024-04-10 11:08] LABS: Appearance CSF CLEAR
[2024-04-10 11:09] LABS: Color CSF STRAW
[2024-04-10 11:11] LABS: CSF Monos 6 %; Lymphocytes CSF 75 %; Neutrophils CSF 1 %; Red Blood Cell CSF 1 MM*3; White Blood Cell CSF 66 MM*3
[2024-04-10 11:13] LABS: CSF Other Cells % 18 %
== END 2024-04-09 14:21 | disposition home or self-care (01) ==
LOC: HO.LAB 14:20
PROVIDERS: Visit Provider Anesthesiology
DX: G89.4 Chronic pain syndrome (principal); G96.00 Cerebrospinal fluid leak, unspecified; Z98.890 Other specified postprocedural states; Z97.8 Presence of other specified devices
CPT/HCPCS: 72070; 72100; 86335; 87015; 87070; 87073; 87205; 89051; 99212

== ENCOUNTER 2024-04-09 14:23 | Outpatient (AMB) | payer MEDICARE, MEDICAID, SELFPAY ==
--- NOTE | 2024-04-09 16:48 | A.OFFVIS_ITS ---
Intake Visit Reasons: FU after seeing the spine office/ok per Dr Lim Allergies oxycodone Adverse Reaction (Severe, Verified 04/07/24 15:35) vertigo sulfamethoxazole [From Bactrim] Adverse Reaction (Severe, Verified 04/07/24 15:35) AFIB trimethoprim [From Bactrim] Adverse Reaction (Severe, Verified 04/07/24 15:35) AFIB HPI Comments Details: Carlito came today in my office after the consult with With a neurosurgeon Dr. Velasco. Recommendations of Dr. Velasco are to perform dye study of the pain pump and also to perform analysis of the fluid collected around the pump and send it for presence of transferrin betta to diagnose or reject the hypothesis that this is CSF. I will invite him tomorrow for this procedure, I also will culture this fluid for the presence of infection. In personal conversation Dr. Velasco told me that is highly unlikely to be CSF, CSF leaks usually occur immediately after the procedure and it has been 2 months since he received the procedure. He reports itchiness on application of the PTM. Possibility exists that he responds to small doses of fentanyl in subcutaneous tissues. Past Procedures: 01/18/2024: Implantation of the I DDD with neurosurgical implanted intrathecal catheter via anatomy. 08/10/23: Attempt of ITDD implant-0% pain relief, procedure aborted 05/22/23: ITDD trial with Fentanyl -80% pain relief for 28 hours 04/20/23: Lumbar Nevro SCS trial-30-40% pain relief [facility] Medical History LAU (dyspnea on exertion) ROSS (obstructive sleep apnea) Arthritis Hiatal hernia Anxiety Depression Elevated cholesterol Atrial fibrillation Umbilical hernia Habitual snoring Sleep apnea Self-catheterizes urinary bladder Disorder of sacroiliac joint Lumbar spinal stenosis Thyroid disease GERD (gastroesophageal reflux disease) Cognitive disorder Back pain Bladder atony Osteoarthritis of hips, bilateral Hypothyroidism Hyperlipidemia Bipolar 1 disorder DVT (deep venous thrombosis) COVID-19 Lynette's thyroiditis Sacroiliac joint pain Bilateral lumbar radiculopathy Spondylosis of lumbar spine Bilateral hip pain Spondylolisthesis Surgical History History of hand surgery History of esophagogastroduodenoscopy (EGD) (~10/2023) Hx of umbilical hernia repair Hx of colonoscopy Social History Household Members: Spouse Housing: House Are you a primary care management assistant to a significant other at home: No Do you presently have visiting nurse or other home services: No Patient Tobacco Use Status: Never used Tobacco e-Cigarette/Vaping Use: Never Used Review of Systems Const All systems reviewed & are unremarkable except as noted in HPI and below Physical Exam General: Appears afebrile. Alert and oriented. Mood and affect appropriate. Follows and participates in conversation appropriately. Respiratory effort is unlabored. Able to transition from sit to stand unassisted. Ambulates with bilaterally normal heel strike and toe off. General: Yes no CVA tenderness Back/Spine/Pelvis Other: Midline incisional wound-No pathological discharge, no swelling and no erythema. There is bulging fluid collection surrounding intrathecal pain pump. There is also seemingly collection of the fluid in subcutaneous tissues were implantation of the intrathecal catheter incision. Back: no CVA tenderness Cervical Spine: cervical muscular tenderness, pain with cervical ROM and No Cervical spine tenderness Thoracic/Lumbar Spine: thoracic and lumbar spine normal to inspection, Lasegue's sign negative, straight leg raise negative bilaterally, pain with thoraco-lumbar ROM, thoraco-lumbar ROM limited, No thoracic spinal tenderness and lumbar spinal tenderness at L4 and at L5 Pelvis: no buttock tenderness Assessment & Plan Assessment & Plan (1) Chronic pain syndrome: Code(s): G89.4 - Chronic pain syndrome Category: Medical Plan Plan of care as above. Tomorrow I will perform the dye study Of the catheter as well as we will send the medications for beta transferrin as well as cultures. Coding Level of Care Code Est Pt Level 3 (93699) Diagnoses Chronic pain syndrome G89.4
== END 2024-04-09 14:29 | disposition home or self-care (01) ==
PROVIDERS: PCP Family Medicine; Visit Provider Anesthesiology
DX: G89.4 Chronic pain syndrome (principal)
CPT/HCPCS: 99213

== ENCOUNTER 2024-04-10 06:23 | Outpatient (REF) | payer MEDICARE, MEDICAID, SELFPAY ==
--- OUTSIDE RECORDS SUMMARY | 2024-04-10 06:27 | XMS_ITS | Clinical Summary ---
Author Organization [facility] Address [address] [place] [address] Phone Care Team Providers Care Blanket Binder Name Role Phone Bonilla Grant DO Primary Care Provider [phone] Allergies Active Allergy Reactions Criticality Noted Date [...] 04/07/2024 1:00 PM EST Office Visit [facility] Hematology Oncology [address] [place] [address] Ranjana Sandoval MD Acute saddle [...] 06/17/2024 1:15 PM EDT Office Visit [facility] Hematology Oncology [address] [place] [phone] Ranjana Sandoval MD [address] [place] [address] Health Maintenance Due Date Last Done Comments [...] LAB HEMETOLOGY METHOD 04/07/2024 4:48 PM EST [facility] Lymphocytes Absolute 1.72 1.00 - 5.00 K/mcL LAB HEMETOLOGY METHOD 04/07/2024 4:48 PM EST [facility] Monocytes Absolute 0.52 0.20 - 1.00 K/mcL LAB HEMETOLOGY METHOD 04/07/2024 4:48 PM EST [facility] Eosinophils Absolute 0.37 0.00 - 0.50 K/[facility] LAB HEMETOLOGY METHOD 04/07/2024 4:48 PM EST [facility] Basophils Absolute 0.02 0.00 - 0.20 K/[facility] LAB HEMETOLOGY METHOD 04/07/2024 4:48 PM EST [facility] Immature Granulocytes Absolute 0.01 0.00 - 0.03 K/[facility] LAB HEMETOLOGY METHOD 04/07/2024 4:48 PM EST [facility] Blood Venous blood specimen / Unknown Venipuncture / Unknown 04/07/2024 1:57 PM EST 04/07/2024 4:36 PM EST us Ranjana Sandoval MD LAB BLOOD ORDERABLES Final R esult Performing Organization Address City/[facility] Co de Phone Number [facility] [address] [place] [address], * Cardiolipin antibody (04/07/2024 1:57 PM EST) Cardiolipin Antibody Screen Negative Negative LAB CHEMISTRY METHOD 04/08/2024 9:39 AM EST [facility] Blood Venous blood specimen / Unknown Venipuncture / Unknown 04/07/2024 1:57 PM EST 04/07/2024 4:36 PM EST us Ranjana Sandoval MD LAB BLOOD ORDERABLES Final R esult [facility] [address] [place] [address], * Colonoscopy (03/02/2021) HM Colonoscopy no interpretation abstracted Anatomical Region Laterality Modality Other us Historical Provider MD HEALTH MAINTENANCE Final Result from Last 3 Months or Most Recently Relevant to Health Maintenance Insurance [place] - [place] - [place] Care Teams Blanket Binder Relationship Specialty Start Date End Date Bonilla Grant DO [address] [place], [place] PCP - General Family Medicine 03/10/24
--- OUTSIDE RECORDS SUMMARY | 2024-04-10 06:27 | XMS_ITS | Encounter Summary ---
Author Organization [facility] Address [address] [place] [address] Care Team Providers Care Seed Trucker Name Role Phone Bonilla Grant DO Primary Care Provider [phone] Reason for Visit * Reason Comments Consult * Consultation (Routine) - Authorized Specialty Diagnoses / Procedures Referred By Contac t Referred To Contact Hematology and Oncology Diagnoses Acute saddle pulmonary embolism without acute cor pulmonale (CMS/HCC) Acute deep vein thrombosis (DVT) of popliteal vein of right lower extremity (CMS/HCC) Bonilla Grant DO [address], [place] Phone: tel: fax: Referral ID Status Reason Start Date Expiration Date Visits Requested Visits Authorized [id number] Authorized Specialty Services Required 03/11/2024 03/11/2025 1 1 Encounter Details Date Type Department Care Team (Late st Contact Info) Description 04/07/2024 1:00 PM EST Office Visit [facility] Hematology Oncology [address] [place] [phone] Ranjana Sandoval MD [address] [place] [address] Acute saddle pulmonary embolism without acute cor [...] deep venous thrombosis, patient was transferred from [facility] to [facility] for thrombectomy, patient was on Lovenox [...] years ago 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 He is lives with his FAMILY HISTORY: [...] Allergen Reactions Bactrim [Sulfamethoxazole-Trimethoprim] Other Bactrim [Na Orbwiowo-kitvjgwcypxkxxys-adixyxayefts Oxycontin [Indigotine-oxycodone Hcl] Oxycontin [Oxycodone] PHYSICAL EXAM: [...] Description 06/17/2024 1:15 PM EDT Office Visit [facility] Hematology Oncology [address] [place] [phone] Ranjana Sandoval MD [address] [place] [address] Scheduled Orders Name Type Priority Associated Diagnoses Orde r Schedule Factor V leiden Lab Routine Acute saddle pulmonary embolism without acute cor pulmonale (CMS/HCC) Acute deep vein thrombosis (DVT) of popliteal vein of right lower extremity (CMS/HCC) 1 Occurrences starting 04/07/2024 until 04/07/2025 Prothrombin [id number] mutation analysis Lab Routine Acute saddle pulmonary embolism without acute cor pulmonale (CMS/HCC) Acute deep vein thrombosis (DVT) of popliteal vein of right lower extremity (CMS/HCC) Expected: 04/07/2024, Expires: 04/07/2025 documented as of this encounter Results * Cardiolipin antibody (04/07/2024 1:57 PM EST) Pathologist [facility] Cardiolipin Antibody Screen Negative Negative LAB CHEMISTRY METHOD 04/08/2024 9:39 AM EST [facility] Blood Venous blood specimen / Unknown Venipuncture / Unknown 04/07/2024 1:57 PM EST 04/07/2024 4:36 PM EST us Ranjana Sandoval MD LAB BLOOD ORDERABLES Final R esult [facility] [place] [facility] [address] [place] [address], documented in this encounter Visit Diagnoses Diagnosis [...] 1 documented in this encounter Care Teams Seed Trucker Relationship Specialty Start Date End Date Bonilla Grant DO [address] [place] [address] PCP - General Family Medicine 03/10/24 documented as of this encounter
--- OUTSIDE RECORDS SUMMARY | 2024-04-10 06:27 | XMS_ITS | Clinical Summary ---
Author Organization Formerly [facility] Address [address] [place] [address] Care Team Providers Care Screen Making Supervisor Name Role Phone Bonilla Grant MD Primary Care Provider [phone] Allergies Active Allergy Reactions Criticality Noted Date [...] EST - 02/28/2024 8:20 PM EST Surgery [facility] Heart & Vascular [place] [facility] - Cardiac Catheterization Laboratory [address] [place] [phone] Jerry Plata MD ARTERIOGRAPHY PULMONARY SELECT-BILAT 02/28/2024 4:25 PM EST Ancillary Procedure [facility] Radiology [address] [place] [phone] Provider, File Room 02/28/2024 4:20 PM EST Ancillary Procedure [facility] Radiology [address] [place] [phone] Provider, File Room 02/28/2024 4:20 PM EST Ancillary Procedure [facility] Radiology [address] [place] [phone] Provider, File Room 02/28/2024 3:53 PM EST - 03/04/2024 5:12 PM EST Hospital Encounter [facility] [address] [place] [phone] Sotero Headley MD Schreyer, Evan K, MD Pokhrel, Kamal, MD Shah, Nirali, MD Pulmonary embolism (HCC) (Primary Dx); Acute saddle pulmonary embolism without acute cor pulmonale (HCC) Discharge Disposition: Home or Self Care 02/28/2024 Travel from Last 3 Months Social History Tobacco Use Types Packs/Day Years Used Date Smoking Tobacco: Never Passive Smoke Exposure: Never Smokeless Tobacco: Never [facility] Utilities Answer Date Recorded In the [...] any time in the past 12 m [facility], were you homeless or living in a fci (including now)? No 02/29/2024 Sex and Gender [...] 65 - 99 mg/dL 03/04/2024 2:38 PM [facility] Comment:Fasting: <100 mg/dL, Non-Fasting: <200 mg/dL (ADA 2005) Blood Urea Nitrogen (BUN) 16 8 - 21 mg/dL 03/04/2024 2:38 PM [facility] Creatinine 1.3 0.5 - 1.3 mg/dL 03/04/2024 2:38 PM [facility] eGFR 61 >59 03/04/2024 2:38 PM [facility] Comment:CKD-EPI (2020) in mL /min/1.73 sq meters. Sodium 140 136 - 145 mmol/L 03/04/2024 2:38 PM [facility] Potassium 4.6 3.4 - 5.3 mmol/L 03/04/2024 2:38 PM [facility] Chloride 102 98 - 107 mmol/L 03/04/2024 2:38 PM [facility] CO2 25 22 - 33 mmol/L 03/04/2024 2:38 PM [facility] Anion Gap 13 7 - 17 03/04/2024 2:38 PM [facility] Calcium 9.1 8.7 - 10.5 mg/dL 03/04/2024 2:38 PM [facility] BUN/Creatinine Ratio 12 10.0 - 25.0 Ratio 03/04/2024 2:38 PM [facility] Blood (Plasma/Serum) 03/04/2024 12:51 PM EST 03/04/2024 2:01 PM EST Mariah Messer MD [place] [address], [place] [address] * (ABNORMAL) proBNP, N-terminal (03/04/2024 5:56 AM EST) Only the most recent of2 resultswithin the time period is included. [facility] proBNP, N-terminal 296(H) <125 pg/mL 03/04/2024 9:02 AM EST [facility] Plasma specimen / Unknown 03/04/2024 5:56 AM EST 03/04/2024 6:30 AM EST Mariah Messer MD LAB BLOOD ORDERABLES Performing Organization Address City/[facility] [place] [address], [place] [address] * (ABNORMAL) Protime-INR (03/04/2024 5:56 AM EST) Only the most recent of6 resultswithin the time period is included. [facility] Anticoagulant WARFARIN (COUMADIN) 03/03/2024 11:00 PM EST Prothrombin Time (PT) 27.7(H) 10.0 - 13.5 seconds 03/04/2024 6:43 AM [facility] INR 2.4 03/04/2024 6:43 AM [facility] Comment:INR Therapeutic Rang es: Standard dose anticoagulant 2.0 to 3.0, High dose anticoagulant 2.5-3.5. Blood Plasma specimen / Unknown 03/04/2024 5:56 AM EST 03/04/2024 6:31 AM EST Mariah Messer MD LAB BLOOD ORDERABLES Performing Organization Address City/[facility] [place] [address], [place] [address] * (ABNORMAL) Complete Blood Count, WITHOUT Differential (routine) (03/04/2024 5:56 AM EST) Only the most recent of6 resultswithin the time period is included. [facility] White Blood Cell Count 5.8 4.0 - 11.0 Thou/uL 03/04/2024 6:35 AM [facility] Platelet Count 153 150 - 450 Thou/uL 03/04/2024 6:35 AM [facility] Hemoglobin 12.1(L) 13.0 - 17.7 g/dL 03/04/2024 6:35 AM [facility] Hematocrit 37.1(L) 39.0 - 54.0 % 03/04/2024 6:35 AM [facility] Red Blood Cell Count 3.82(L) 4.50 - 6.20 Mil/uL 03/04/2024 6:35 AM [facility] MCV 97 80 - 100 fL 03/04/2024 6:35 AM [facility] MCH 31.7(H) 27.0 - 31.0 pg 03/04/2024 6:35 AM [facility] MCHC 32.6 30.0 - 36.0 g/dL 03/04/2024 6:35 AM [facility] RDW 13.2 11.5 - 14.5 % 03/04/2024 6:35 AM [facility] MPV 10.4 7.5 - 12.5 fL 03/04/2024 6:35 AM [facility] Blood Blood specimen / Unknown 03/04/2024 5:56 AM EST 03/04/2024 6:30 AM EST Mariah Messer MD LAB BLOOD ORDERABLES Performing Organization Address City/[facility]/ZIP [place] [address], [place] [address] * Phosphorus (Routine) (03/04/2024 5:56 AM EST) Only the most recent of6 resultswithin the time period is included. Phosphorus 3.1 2.7 - 4.5 mg/dL 03/04/2024 7:02 AM [facility] Blood (Plasma/Serum) 03/04/2024 5:56 AM EST 03/04/2024 6:30 AM EST Mariah Messer MD LAB BLOOD ORDERABLES Performing Organization Address City/[facility]/[place]IP [place] [address], [place] [address] * Magnesium (Routine) (03/04/2024 5:56 AM EST) Only the most recent of7 resultswithin the time period is included. Magnesium 2.0 1.6 - 2.7 mg/dL 03/04/2024 7:02 AM EST [facility] Blood (Plasma/Serum) 03/04/2024 5:56 AM EST 03/04/2024 6:30 AM EST Mariah Messer MD LAB BLOOD ORDERABLES Performing Organization Address City/State/[facility] Co de Phone Number [address] [address], [address] [address] * ECHOCARDIOGRAM COMPREHENSIVE (03/01/2024 2:41 PM EST) [...] original result was not included. ?? Department: [facility] Patient: [id number] (KAREN GORDON) ?? Patient Location: ..[address] CPT Code: 97087 ICD-9: ?? Referring Physician: EVA MILLER Impression [...] Note Bob Gonzales MD - 03/01/2024 Department: [facility] Patient: [id number] (EVAN KAREN) Patient Location: [address] CPT Code: 03077 ICD-9: Referring Physician: EVA MILLER Impression Critical [...] T 211(HH) <23 ng/L 02/29/2024 2:45 AM [facility] Comment:Recurring Critical R esult. Previously phoned. Delta (Change) 53(H) <3 02/29/2024 2:45 AM [facility] Comment:Decreased Blood (Plasma/Serum) 02/29/2024 1:29 AM EST 02/29/2024 1:42 AM EST Eva Miller APRN LAB BLOOD ORDERABLE S Performing Organization Address [facility]/[place]IP [place] [address], [place] [address] * Lactic Acid, Plasma (Routine) (02/29/2024 1:29 AM EST) Only the most recent of3 resultswithin the time period is included. Lactic Acid 1.7 0.5 - 1.9 mmol/L 02/29/2024 2:19 AM EST [facility] Blood Plasma specimen / Unknown 02/29/2024 1:29 AM EST 02/29/2024 1:42 AM EST Eva Miller APRN [place] [address], [place] [address] * (ABNORMAL) Partial Thromboplastin Time (PTT) (02/28/2024 9:13 PM EST) Anticoagulant OTHER AGENT OR UNKNOWN 02/28/2024 9:14 PM EST Partial Thromboplastin Time (PTT) 60(H) 25 - 36 seconds 02/28/2024 10:03 PM EST [facility] Blood Plasma specimen / Unknown 02/28/2024 9:13 PM EST 02/28/2024 9:45 PM EST Eva Miller APRN LAB BLOOD ORDERABLE S Performing Organization Address City/[facility] [place] [address], [place] [address] * ECG 12 lead (02/28/2024 8:52 PM EST) Only the most recent of2 resultswithin the time period is included. Systolic BP 122 mmHg EKG [facility] Diastolic BP 74 mmHg EKG [facility] Ventricular rate 98 BPM EKG [facility] Atrial rate 98 BPM EKG [facility] P-R interval 174 ms EKG [facility] QRS duration 88 ms EKG [facility] Q-T interval 366 ms EKG [facility] QTC calculation (Bazett) 467 ms EKG [facility] P axis 57 degrees EKG [facility] R axis 108 degrees EKG [facility] T axis 51 degrees EKG [facility] 02/28/2024 8:52 PM EST Narrative EKG [facility] - 02/29/2024 6:56 AM EST Normal [...] Whitaker MD ECG ORDERABLES Performing Organization Address City/[facility]/ZIP Co de Phone Number EKG [facility] * (ABNORMAL) POCT Glucose, Fingerstick (02/28/2024 [...] from the original result were not included. [facility] Heart & Vascular [place] [facility] - Cardiac Catheterization Laboratory [facility] Heart & Vascular [place] [facility] - Cardiac Catheterization Laboratory PATIENT DEMOGRAPHIC INFORMATION Name: Karen Gordon : 1955 68 y.o. Sex: male Gender: male Procedure Date: 02/28/2024 PROCEDURE DETAILS Customer Success Advocate: Jerry Plata MD Fellow: MD Alla Gallegos MD Omar Yacob, MBBS Machine Bunch Maker(s): none Indications for Procedure: Pulmonary embolism ?? Referring Physician: Charles Fneton PCP: Bonilla Grant MD Procedure(s): Procedures: ??* [...] L/min/kg2 QS = 2.76 Tracings available in eBuilder log report CLINICAL HISTORY 64-year-old male presents to the hospital shortness of breath found to have intermediate risk pulmonary embolism with risk enhancing features. PROCEDURE Informed consent was obtained; a procedural timeout was performed; the patient was prepped and draped in sterile fashion; Access: Right femoral vein Sheath: 24F Mongolian Under ultrasound guidance the right femoral vein was accessed with a 7F sheath. The vein was preclosed. A right heart catheterization was performed with a [place] Ritchie Catheter. A pigtail was used to [...] this patient that I request from a [facility] PA/DIRECTOR OF LEADERSHIP DEVELOPMENT/fellow/staff member. Jerry Plata MD [facility] Heart & Vascular [place] 02/28/2024 ??7:34 PM Cardiac Protocol pulmonary hypertension [...] atypical angina PCI Indication: other. Indications for Lead Android Developer Visit: other indications Jerry Plata MD CV ENDOVASCULAR OR DERABLES * CC RIGHT HEART CATH, CORONARY ANGIOGRAM, CC THROMBECTOMY (02/28/2024 7:21 PM EST) Anatomical Region Laterality Modality Radiographic Evelyn ging Narrative 02/28/2024 7:59 PM EST Table formatting from the original result was not included. Images from the original result were not included. [facility] Heart & Vascular [place] [facility] - Cardiac Catheterization Laboratory [facility] Heart & Vascular [place] [facility] - Cardiac Catheterization Laboratory PATIENT DEMOGRAPHIC INFORMATION Name: Karen Gordon : 1955 68 y.o. Sex: male Gender: male Procedure Date: 02/28/2024 PROCEDURE DETAILS Customer Success Advocate: Jerry Plata MD Fellow: MD Alla Gallegos MD Omar Yacob, MBBS Machine Bunch Maker(s): none Indications for Procedure: Pulmonary embolism ?? [...] L/min/kg2 QS = 2.76 Tracings available in eBuilder log report CLINICAL HISTORY 64-year-old male presents to the hospital shortness of breath found to have intermediate risk pulmonary embolism with risk enhancing features. PROCEDURE Informed consent was obtained; a procedural timeout was performed; the patient was prepped and draped in sterile fashion; Access: Right femoral vein Sheath: 24F Mongolian Under ultrasound guidance the right femoral vein was accessed with a 7F sheath. The vein was preclosed. A right heart catheterization was performed with a [place] Ritchie Catheter. A pigtail was used to [...] this patient that I request from a [facility] PA/YUNIEL/fellow/staff member. Jerry Plata MD [facility] Heart & Vascular [place] 02/28/2024 ??7:34 PM Cardiac Protocol pulmonary hypertension [...] atypical angina PCI Indication: other. Indications for Lead Android Developer Visit: other indications Jerry Plata MD CV CARDIAC CATH OR DERABLES * (ABNORMAL) POCT O2 Saturation (AVOX) (02/28/2024 7:13 PM EST) Only the most recent of2 resultswithin the time period is included. CARMINE 48(A) 60 - 75 % Lot Number [id number] Commercial Carpet Installer Pass Pass Blood 02/28/2024 7:13 PM EST [...] 4.0 - 11.0 Thou/uL 02/28/2024 4:36 PM [facility] Platelet Count 144(L) 150 - 450 Thou/uL 02/28/2024 4:36 PM [facility] Hemoglobin 13.6 13.0 - 17.7 g/dL 02/28/2024 4:36 PM [facility] Hematocrit 41.7 39.0 - 54.0 % 02/28/2024 4:36 PM [facility] Red Blood Cell Count 4.32(L) 4.50 - 6.20 Mil/uL 02/28/2024 4:36 PM [facility] MCV 97 80 - 100 fL 02/28/2024 4:36 PM [facility] MCH 31.5(H) 27.0 - 31.0 pg 02/28/2024 4:36 PM [facility] MCHC 32.6 30.0 - 36.0 g/dL 02/28/2024 4:36 PM [facility] RDW 13.2 11.5 - 14.5 % 02/28/2024 4:36 PM [facility] MPV 9.8 7.5 - 12.5 fL 02/28/2024 4:36 PM [facility] Neutrophils Auto 76.5 % 02/27/19 25 4:36 PM [facility] Immature Granulocytes 1.8 % 02/28/2024 4:36 PM [facility] Lymphocytes Auto 14.7 % 02/27/19 4:36 PM [facility] Monocytes Auto 6.3 % 02/28/2024 4:36 PM [facility] Eosinophils Auto 0.5 % 02/27/19 4:36 PM [facility] Basophils Auto 0.2 % 02/28/2024 4:36 PM [facility] Abs Neutrophils Auto 9.60(H) 2.00 - 7.50 Thou/uL 02/28/2024 4:36 PM [facility] Abs Immature Granulocytes 0.22(H) 0.00 - 0.10 Thou/uL 02/28/2024 4:36 PM [facility] Abs Lymphocytes Auto 1.84 1.50 - 4.50 Thou/uL 02/28/2024 4:36 PM [facility] Abs Monocytes Auto 0.79 0.20 - 1.50 Thou/uL 02/28/2024 4:36 PM [facility] Abs Eosinophils Auto 0.06 0.00 - 0.70 Thou/uL 02/28/2024 4:36 PM [facility] Abs Basophils Auto 0.02 0.00 - 0.20 Thou/uL 02/28/2024 4:36 PM [facility] Blood Blood specimen / Unknown 02/28/2024 4:08 PM EST 02/28/2024 4:26 PM EST Sotero Headley MD [place] [address], [place] [address] * (ABNORMAL) Hepatic Function Panel (02/28/2024 4:08 PM EST) Alkaline Phosphatase 134(H) 45 - 128 U/L 02/28/2024 4:58 PM [facility] Aspartate Aminotrans (AST) 28 10 - 55 U/L 02/28/2024 4:58 PM [facility] Alanine Aminotrans (ALT) 30 10 - 55 U/L 02/28/2024 4:58 PM [facility] Bilirubin, Total 0.3 0.2 - 1.0 mg/dL 02/28/2024 4:58 PM [facility] Protein, Total 7.5 6.3 - 8.3 g/dL 02/28/2024 4:58 PM [facility] Albumin 3.9 3.4 - 4.8 g/dL 02/28/2024 4:58 PM [facility] Bilirubin, Direct <0.1 0 - 0.2 mg/dL 02/28/2024 4:58 PM [facility] Globulin 3.6 1.5 - 3.9 g/dL 02/28/2024 4:58 PM [facility] Albumin/Globulin Ratio 1.1 1.0 - 3.0 Ratio 02/28/2024 4:58 PM [facility] Blood (Plasma/Serum) 02/28/2024 4:08 PM EST 02/28/2024 4:26 PM EST Sotero Headley MD LAB BLOOD ORDERABLES Performing Organization Address City/State/[facility] Co de Phone Number [address] [address], [facility] [address] [place] [address] from Last 3 Months Advance Directives * Full Code (Latest Code Status on File) Date Activated Date Inactivated Comments 02/28/2024 8:48 PM * Full Code Date Activated Date Inactivated Comments 02/28/2024 7:40 PM 02/28/2024 8:48 PM Care Teams Screen Making Supervisor Relationship Specialty Start Date End Date Bonilla Grant MD [address] [place] [address] PCP - General Psychiatry, General 02/28/24
== END 2024-04-10 06:24 | disposition home or self-care (01) ==
LOC: CF 06:23
PROVIDERS: Visit Provider Internal Medicine
DX: Z13.89 Encounter for screening for other disorder (principal)
CPT/HCPCS: Q9967

== ENCOUNTER 2024-04-15 09:36 | Day surgery (SDC) | payer MEDICARE, OTHER, SELFPAY ==
[2024-04-15] VITALS (7 sets, daily range): BP systolic 115–129; BP diastolic 43–82; PULSE 70–75; RESP 16; TEMP 36.4–36.6; O2SAT 98–100
--- NOTE | ~2024-04-15 | CT_ITS ---
EXAMINATION: CT lumbar post myelography. CLINICAL INDICATION: CSF fluid leak. COMPARISON: Lumbar spine x-ray 04/09/2024. TECHNIQUE: Axial 3 mm thin and reformatted 2 mm thin sagittal and coronal images of lumbar spine were obtained following insertion of mL of nonionic Omnipaque 300 Neuro contrast through epidural catheter by Dr. Lim. DLP 620 mGy/cm. FINDINGS: On sagittal reconstructed images is maintained lumbar lordosis. There is grade 1 anterolisthesis L5 on S1. Rest of the vertebral alignment is normal. There is loss of disc height virtually at every disc level sparing the L4-5 disc level with ventral and posterior spondylosis. At T12-L1 disc level there is posterior spondylosis/bulge complex with mild spinal canal narrowing. There is mild narrowing of the right neural foramina. At L1-L2 disc level there is posterior spondylosis/bulge complex with moderate canal stenosis there is bilateral moderate narrowing of neural foramina. There is extraspinal catheter entering the intrathecal sac from posterior approach with its tip extending superiorly above the T12 vertebra not in the [id number]. There is a large posterior soft tissue CSF and contrast collection likely punctured or severed catheter. At L2-3 disc level there is posterior spondylosis/bulge complex resulting in moderate concentric canal stenosis. There is bilateral mild facet joint hypertrophy resulting in bilateral neural foraminal narrowing. At L3-4 disc level there is severe spinal canal stenosis from a combination of disc bulge/osteophyte complex and bilateral moderate facet joint hypertrophy. There is bilateral mild to moderate narrowing of neural foramina. At L4-5 disc level there is severe concentric canal stenosis. The neural foramina are bilaterally moderately narrowed. L5-S1 disc level is anterolisthesis with broad-based diffuse pseudodisc bulge resulting in severe spinal canal stenosis. The neural foramina are mildly narrowed bilaterally. Bilateral L5 pars defects are noted. Posterior to L1-L2 disc level there is a large sac consistent with CSF and contrast measuring 6.1 cm in craniocaudad length, 5.5 cm in AP and 3.4 cm wide on sagittal image 33/6 and axial image 40/4. CT/CT lumbar post myelography IMPRESSION: Grade 1 anterolisthesis L5-S1 with degenerative disc changes which at every disc level sparing the L4-5 disc level. There is moderate ventral and posterior spondylosis. There is multilevel spinal canal stenosis. There is intrathecal catheter entering the L1-L2 posterior interlaminar space with the tip extending superior to T12 vertebra not in the [id number]. There is a large fluid collection posterior L1-L2 disc level where the catheter appears very irregular and likely perforated resulting in extravasation of CSF and contrast as measured above. This is likely site of CSF leak. Results were immediately tiger texted to Dr. Lim at 11:32 AM Electronically signed by: Christopher Hernández MD 04/15/2024 11:39 AM [facility]
--- NOTE | 2024-04-15 09:57 | MHC.SHP ---
Pre-Procedural Eval Section A - 24 Hr Update-Section A only Date of Service: 04/15/24 The patient is an INPATIENT: No Changes since office visit: Yes Patient answered all questions The patient has been examined within 24 hours of the surgical procedure. The History & Physical has been completed within 30 days and I have reviewed it.: No Section B - Complete if H&P > 30 days Chief Complaint: cerebrospinal fluid leak Details of Present Illness: as above Present Medications: None Medical History: No relevant PMH History of Previous Operations: Relevant previous surgery/procedure and date(s) (RFA lumbar) Allergies: Allergies Allergy/AdvReac Type Severity Reaction Status Date / Time oxycodone AdvReac Severe vertigo Verified 04/07/24 15:35 sulfamethoxazole AdvReac Severe AFIB Verified 04/07/24 15:35 [From Bactrim] trimethoprim [From Bactrim] AdvReac Severe AFIB Verified 04/07/24 15:35 Review of Systems Sugical H&P ROS: Negative: Constitution, Cardiovascular, Respiratory, Neurological, Psychiatric, Hem-Onc, Allergic/Immunologic, Gastrointestinal, Integumentary, Endocrine and Eyes/Ears/Nose/Throat and Yes, Specify: Genitourinary (urinary incontinence and retention due to yatrogenic cauda equina syndrome.) and Musculoskeletal (as above ) Exam Surgical H&P Exam: Normal: HEENT, Normal: Heart, Normal: Lungs, Normal: Extremities, Normal: Abdomen, Normal: Skin and Normal: Neurological Plan Diagnosis/Plan: Unchanged I have reviewed the history and physical and performed a pertinent physical examination on my patient. No changes have occurred unless specified. Time Spent With Patient Time: Total time managing care of this patient today ____ minutes.
[2024-04-15] MEDS: iopamidoL 15 ML VIAL 10 ML INTRATHECA (10:20)
--- NOTE | 2024-04-15 11:11 | PM.OP ---
Brief Operative Note Date of Service: 04/15/24 Pre-op diagnosis: CSF leak Post-op diagnosis: same Procedure: Dye study of intrathecal pain pump catheter, CT myelography. Surgeon: Napoleon Lim MD Anesthesia: none Was an Property Caretaker used for this Procedure?: No Estimated blood loss (mL): 0 Condition: stable Disposition: PACU
--- NOTE | 2024-04-15 11:12 | W.PM.OPN ---
Operative Note Operative Note Date of Service: 04/15/24 Narrative: Bread is very pleasant 68 years old gentleman who presents in my office with collections of the fluid in the pain pump pocket. He was examined previously and sample of the fluid was sent to the laboratory to detect transferrin betta, test was positive. Therefore we assume CSF leak. In the order to detect the location of the leak he came today to the injection area to perform dye study of the intrathecal pain pump catheter and perform CT myelography. When he came to the injection area his blood pressure was 127/73 mm Hg, his pulse was 82 bpm, O2 sat 96%. He came to the operating room and was positioned prone on the operating table with lower back and upper buttocks exposed. The pump pocket was 1st reached using 20 gauge needle with the extension tubing and 100 mL of straw-colored clear fluid was drained from the pocket. After that 24 gauge intrathecal catheter port noncoring needle was inserted through the skin and advanced to the catheter port of the pain pump under fluoroscopy guidance. When the needle reached and pierced through the plug of the port aspiration was applied, I removed 2.5 cc of cerebrospinal fluid. After that 10 cc of Isovue M contrast was slowly injected into the port via the needle and extension tubing the myelography was observed live at thoracic spine level during the injection. Immediately after that the patient was transferred into steep reverse Trendelenburg positioned. He was after that moved into CT scan to perform CT myelography. The patient tolerated procedure well. He was taken to PACU for recovery. He recovered uneventfully.
== END 2024-04-15 13:00 | disposition home or self-care (01) ==
PROVIDERS: Radiology Vascular & Interventional Radiology; PCP Family Medicine; Visit Provider Anesthesiology
DX: G96.00 Cerebrospinal fluid leak, unspecified (principal); M43.16 Spondylolisthesis, lumbar region; M51.369 Other intervertebral disc degeneration, lumbar region without mention of lumbar back pain or lower extremity pain; M48.061 Spinal stenosis, lumbar region without neurogenic claudication; G47.33 Obstructive sleep apnea (adult) (pediatric)
CPT/HCPCS: 62328; 62304; 72131; Q9967

== ENCOUNTER → 2024-04-15 09:36 | Outpatient (BNV) | payer MEDICARE, MEDICAID, SELFPAY | PROVIDERS: PCP Family Medicine; Visit Provider Anesthesiology | DX: G96.00 Cerebrospinal fluid leak, unspecified (principal); Z97.8 Presence of other specified devices | CPT/HCPCS: 64999 ==

== ENCOUNTER → 2024-04-15 09:45 | Outpatient (BNV) | payer MEDICARE, MEDICAID, SELFPAY | PROVIDERS: PCP Family Medicine; Visit Provider Radiology Diagnostic Radiology | DX: G96.00 Cerebrospinal fluid leak, unspecified (principal) | CPT/HCPCS: 72131 ==

== ENCOUNTER 2024-04-18 06:01 | Day surgery (SDC) | payer MEDICARE, OTHER, SELFPAY ==
--- OUTSIDE RECORDS SUMMARY | 2024-04-16 14:53 | XMS_ITS | Clinical Summary ---
Author Organization [facility] Address [address] [place] [address] Care Team Providers Care Dog Breeder Name Role Phone Bonilla Grant MD Primary Care Provider [phone] Allergies Active Allergy Reactions Criticality Noted Date [...] EST - 02/28/2024 8:20 PM EST Surgery [facility] [place] at [facility] - Cardiac Catheterization Laboratory [address] [place] [phone] Jerry Plata MD ARTERIOGRAPHY PULMONARY SELECT-BILAT 02/28/2024 4:25 PM EST Ancillary Procedure [facility] Radiology [address] [place] [phone] Provider, File Room 02/28/2024 4:20 PM EST Ancillary Procedure [facility] Radiology [address] [place] [phone] Provider, File Room 02/28/2024 4:20 PM EST Ancillary Procedure [facility] Radiology [address] [place] [phone] Provider, File Room 02/28/2024 3:53 PM EST - 03/04/2024 5:12 PM EST Hospital Encounter [facility] [address] [place] [phone] Soetro Headley MD Schreyer, Evan K, MD Pokhrel, Kamal, MD Shah, Nirali, MD Pulmonary embolism (HCC) (Primary Dx); Acute saddle pulmonary embolism without acute cor pulmonale (HCC) Discharge Disposition: Home or Self Care 02/28/2024 Travel from Last 3 Months Social History Tobacco Use Types Packs/Day Years Used Date Smoking Tobacco: Never Passive Smoke Exposure: Never Smokeless Tobacco: Never [facility] Utilities Answer Date Recorded In the [...] any time in the past 12 m [facility], were you homeless or living in a assisted (including now)? No 02/29/2024 Sex and Gender [...] 65 - 99 mg/dL 03/04/2024 2:38 PM [facility] Comment:Fasting: <100 mg/dL, Non-Fasting: <200 mg/dL (ADA 2005) Blood Urea Nitrogen (BUN) 16 8 - 21 mg/dL 03/04/2024 2:38 PM [facility] Creatinine 1.3 0.5 - 1.3 mg/dL 03/04/2024 2:38 PM [facility] eGFR 61 >59 03/04/2024 2:38 PM [facility] Comment:CKD-EPI (2020) in mL /min/1.73 sq meters. Sodium 140 136 - 145 mmol/L 03/04/2024 2:38 PM [facility] Potassium 4.6 3.4 - 5.3 mmol/L 03/04/2024 2:38 PM [facility] Chloride 102 98 - 107 mmol/L 03/04/2024 2:38 PM [facility] CO2 25 22 - 33 mmol/L 03/04/2024 2:38 PM [facility] Anion Gap 13 7 - 17 03/04/2024 2:38 PM [facility] Calcium 9.1 8.7 - 10.5 mg/dL 03/04/2024 2:38 PM [facility] BUN/Creatinine Ratio 12 10.0 - 25.0 Ratio 03/04/2024 2:38 PM [facility] Blood (Plasma/Serum) 03/04/2024 12:51 PM EST 03/04/2024 2:01 PM EST Mariah Messer MD [place] [address], [place] [address] * (ABNORMAL) proBNP, N-terminal (03/04/2024 5:56 AM EST) Only the most recent of2 resultswithin the time period is included. [facility] proBNP, N-terminal 296(H) <125 pg/mL 03/04/2024 9:02 AM EST [facility] Plasma specimen / Unknown 03/04/2024 5:56 AM EST 03/04/2024 6:30 AM EST Mariah Messer MD LAB BLOOD ORDERABLES Performing Organization Address City/[facility] [place] [address], [place] [address] * (ABNORMAL) Protime-INR (03/04/2024 5:56 AM EST) Only the most recent of6 resultswithin the time period is included. [facility] Anticoagulant WARFARIN (COUMADIN) 03/03/2024 11:00 PM EST Prothrombin Time (PT) 27.7(H) 10.0 - 13.5 seconds 03/04/2024 6:43 AM [facility] INR 2.4 03/04/2024 6:43 AM [facility] Comment:INR Therapeutic Rang es: Standard dose anticoagulant 2.0 to 3.0, High dose anticoagulant 2.5-3.5. Blood Plasma specimen / Unknown 03/04/2024 5:56 AM EST 03/04/2024 6:31 AM EST Mariah Messer MD LAB BLOOD ORDERABLES Performing Organization Address City/[facility] [place] [address], [place] [address] * (ABNORMAL) Complete Blood Count, WITHOUT Differential (routine) (03/04/2024 5:56 AM EST) Only the most recent of6 resultswithin the time period is included. [facility] White Blood Cell Count 5.8 4.0 - 11.0 Thou/uL 03/04/2024 6:35 AM [facility] Platelet Count 153 150 - 450 Thou/uL 03/04/2024 6:35 AM [facility] Hemoglobin 12.1(L) 13.0 - 17.7 g/dL 03/04/2024 6:35 AM [facility] Hematocrit 37.1(L) 39.0 - 54.0 % 03/04/2024 6:35 AM [facility] Red Blood Cell Count 3.82(L) 4.50 - 6.20 Mil/uL 03/04/2024 6:35 AM [facility] MCV 97 80 - 100 fL 03/04/2024 6:35 AM [facility] MCH 31.7(H) 27.0 - 31.0 pg 03/04/2024 6:35 AM [facility] MCHC 32.6 30.0 - 36.0 g/dL 03/04/2024 6:35 AM [facility] RDW 13.2 11.5 - 14.5 % 03/04/2024 6:35 AM [facility] MPV 10.4 7.5 - 12.5 fL 03/04/2024 6:35 AM [facility] Blood Blood specimen / Unknown 03/04/2024 5:56 AM EST 03/04/2024 6:30 AM EST Mariah Messer MD LAB BLOOD ORDERABLES Performing Organization Address City/[facility]/[place] [address], [place] [address] * Phosphorus (Routine) (03/04/2024 5:56 AM EST) Only the most recent of6 resultswithin the time period is included. Phosphorus 3.1 2.7 - 4.5 mg/dL 03/04/2024 7:02 AM [facility] Blood (Plasma/Serum) 03/04/2024 5:56 AM EST 03/04/2024 6:30 AM EST Mariah Messer MD LAB BLOOD ORDERABLES Performing Organization Address City/[facility]/[place] [address], [place] [address] * Magnesium (Routine) (03/04/2024 5:56 AM EST) Only the most recent of7 resultswithin the time period is included. Magnesium 2.0 1.6 - 2.7 mg/dL 03/04/2024 7:02 AM EST [facility] Blood (Plasma/Serum) 03/04/2024 5:56 AM EST 03/04/2024 6:30 AM EST Mariah Messer MD LAB BLOOD ORDERABLES Performing Organization Address City/State/[facility] Co de Phone Number [address] [address], [address] [address] * ECHOCARDIOGRAM COMPREHENSIVE (03/01/2024 2:41 PM EST) Pathologist [facility] IVS Mean (F:0.6-0.9, M:0.6-1.0) 1.2 cm IVS [...] not included. ?? Department: [facility] Vascular Lab Patient: [id number] (KAREN GORDON) ?? Patient Location: [address] CPT Code: 14085 ICD-9: ?? Referring Physician: EVA MILLER Impression [...] MD - 03/01/2024 Department: [facility] Vascular Lab Patient: [id number] (EVAN KAREN) Patient Location: [address] CPT Code: 86269 ICD-9: Referring Physician: EVA MILLER Impression Critical [...] T 211(HH) <23 ng/L 02/29/2024 2:45 AM [facility] Comment:Recurring Critical R esult. Previously phoned. Delta (Change) 53(H) <3 02/29/2024 2:45 AM [facility] Comment:Decreased Blood (Plasma/Serum) 02/29/2024 1:29 AM EST 02/29/2024 1:42 AM EST Eva Miller APRN LAB BLOOD ORDERABLE S Performing Organization Address [facility]/[place] [address], [place] [address] * Lactic Acid, Plasma (Routine) (02/29/2024 1:29 AM EST) Only the most recent of3 resultswithin the time period is included. Lactic Acid 1.7 0.5 - 1.9 mmol/L 02/29/2024 2:19 AM EST [facility] Blood Plasma specimen / Unknown 02/29/2024 1:29 AM EST 02/29/2024 1:42 AM EST Eva Miller APRN [place] [address], [place] [address] * (ABNORMAL) Partial Thromboplastin Time (PTT) (02/28/2024 9:13 PM EST) Anticoagulant OTHER AGENT OR UNKNOWN 02/28/2024 9:14 PM EST Partial Thromboplastin Time (PTT) 60(H) 25 - 36 seconds 02/28/2024 10:03 PM EST [facility] Blood Plasma specimen / Unknown 02/28/2024 9:13 PM EST 02/28/2024 9:45 PM EST Eva Miller APRN LAB BLOOD ORDERABLE S Performing Organization Address City/[facility] [place] [address], [place] [address] * ECG 12 lead (02/28/2024 8:52 PM EST) Only the most recent of2 resultswithin the time period is included. Systolic BP 122 mmHg EKG [facility] Diastolic BP 74 mmHg EKG [facility] Ventricular rate 98 BPM EKG [facility] Atrial rate 98 BPM EKG [facility] P-R interval 174 ms EKG [facility] QRS duration 88 ms EKG [facility] Q-T interval 366 ms EKG [facility] QTC calculation (Bazett) 467 ms EKG [facility] P axis 57 degrees EKG [facility] R axis 108 degrees EKG [facility] T axis 51 degrees EKG [facility] 02/28/2024 8:52 PM EST Narrative EKG [facility] - 02/29/2024 6:56 AM EST Normal [...] Whitaker MD ECG ORDERABLES Performing Organization Address City/[facility]/ZIP Co de Phone Number EKG [facility] * (ABNORMAL) POCT Glucose, Fingerstick (02/28/2024 [...] from the original result were not included. [facility] [place] [facility] - Cardiac Catheterization Laboratory [facility] [place] [facility] - Cardiac Catheterization Laboratory PATIENT DEMOGRAPHIC INFORMATION Name: Karen Gordon : 1955 68 y.o. Sex: male Gender: male Procedure Date: 02/28/2024 PROCEDURE DETAILS Terminal Press Operator: Jerry Plata MD Fellow: MD Alla Gallegos MD Omar Yacob, MBBS Children'S Literature Professor(s): none Indications for Procedure: Pulmonary embolism ?? [...] L/min/kg2 QS = 2.76 Tracings available in [facility] [employer] log report CLINICAL HISTORY 64-year-old male presents to the hospital shortness of breath found to have intermediate risk pulmonary embolism with risk enhancing features. PROCEDURE Informed consent was obtained; a procedural timeout was performed; the patient was prepped and draped in sterile fashion; Access: Right femoral vein Sheath: 24F [place] Under ultrasound guidance the right femoral vein was accessed with a 7F sheath. The vein was preclosed. A right heart catheterization was performed with a [place] Ritchie Catheter. A pigtail was used to [...] this patient that I request from a [facility] PA/SALVAGE ENGINEERING TECHNICIAN/fellow/staff member. Jerry Plata MD [facility] [place] 02/28/2024 ??7:34 PM Cardiac Protocol pulmonary hypertension [...] atypical angina PCI Indication: other. Indications for Regulatory Affairs Spec Visit: other indications Jerry Plata MD CV ENDOVASCULAR OR DERABLES * CC RIGHT HEART CATH, CORONARY ANGIOGRAM, CC THROMBECTOMY (02/28/2024 7:21 PM EST) Anatomical Region Laterality Modality Radiographic Evelyn ging Narrative 02/28/2024 7:59 PM EST Table formatting from the original result was not included. Images from the original result were not included. [facility] [place] [facility] - Cardiac Catheterization Laboratory [facility] [place] [facility] - Cardiac Catheterization Laboratory PATIENT DEMOGRAPHIC INFORMATION Name: Karen Gordon : 1955 68 y.o. Sex: male Gender: male Procedure Date: 02/28/2024 PROCEDURE DETAILS Terminal Press Operator: Jerry Plata MD Fellow: MD Alla Gallegos MD Omar Yacob, MBBS Children'S Literature Professor(s): none Indications for Procedure: Pulmonary embolism ?? [...] L/min/kg2 QS = 2.76 Tracings available in [facility] [employer] log report CLINICAL HISTORY 64-year-old male presents to the hospital shortness of breath found to have intermediate risk pulmonary embolism with risk enhancing features. PROCEDURE Informed consent was obtained; a procedural timeout was performed; the patient was prepped and draped in sterile fashion; Access: Right femoral vein Sheath: 24F [place] Under ultrasound guidance the right femoral vein was accessed with a 7F sheath. The vein was preclosed. A right heart catheterization was performed with a [place] Ritchie Catheter. A pigtail was used to [...] this patient that I request from a [facility] PA/YUNIEL/fellow/staff member. Jerry Plata MD [facility] [place] 02/28/2024 ??7:34 PM Cardiac Protocol pulmonary hypertension [...] atypical angina PCI Indication: other. Indications for Regulatory Affairs Spec Visit: other indications Jerry Plata MD CV CARDIAC CATH OR DERABLES * (ABNORMAL) POCT O2 Saturation (AVOX) (02/28/2024 7:13 PM EST) Only the most recent of2 resultswithin the time period is included. CARMINE 48(A) 60 - 75 % Lot Number [id number] Diamond Powder Technician Pass Pass Blood 02/28/2024 7:13 PM EST [...] 4.0 - 11.0 Thou/uL 02/28/2024 4:36 PM [facility] Platelet Count 144(L) 150 - 450 Thou/uL 02/28/2024 4:36 PM [facility] Hemoglobin 13.6 13.0 - 17.7 g/dL 02/28/2024 4:36 PM [facility] Hematocrit 41.7 39.0 - 54.0 % 02/28/2024 4:36 PM [facility] Red Blood Cell Count 4.32(L) 4.50 - 6.20 Mil/uL 02/28/2024 4:36 PM [facility] MCV 97 80 - 100 fL 02/28/2024 4:36 PM [facility] MCH 31.5(H) 27.0 - 31.0 pg 02/28/2024 4:36 PM [facility] MCHC 32.6 30.0 - 36.0 g/dL 02/28/2024 4:36 PM [facility] RDW 13.2 11.5 - 14.5 % 02/28/2024 4:36 PM [facility] MPV 9.8 7.5 - 12.5 fL 02/28/2024 4:36 PM [facility] Neutrophils Auto 76.5 % 02/27/19 25 4:36 PM [facility] Immature Granulocytes 1.8 % 02/28/2024 4:36 PM [facility] Lymphocytes Auto 14.7 % 02/27/19 4:36 PM [facility] Monocytes Auto 6.3 % 02/28/2024 4:36 PM [facility] Eosinophils Auto 0.5 % 02/27/19 4:36 PM [facility] Basophils Auto 0.2 % 02/28/2024 4:36 PM [facility] Abs Neutrophils Auto 9.60(H) 2.00 - 7.50 Thou/uL 02/28/2024 4:36 PM [facility] Abs Immature Granulocytes 0.22(H) 0.00 - 0.10 Thou/uL 02/28/2024 4:36 PM [facility] Abs Lymphocytes Auto 1.84 1.50 - 4.50 Thou/uL 02/28/2024 4:36 PM [facility] Abs Monocytes Auto 0.79 0.20 - 1.50 Thou/uL 02/28/2024 4:36 PM [facility] Abs Eosinophils Auto 0.06 0.00 - 0.70 Thou/uL 02/28/2024 4:36 PM [facility] Abs Basophils Auto 0.02 0.00 - 0.20 Thou/uL 02/28/2024 4:36 PM [facility] Blood Blood specimen / Unknown 02/28/2024 4:08 PM EST 02/28/2024 4:26 PM EST Sotero Headley MD [place] [address], [place] [address] * (ABNORMAL) Hepatic Function Panel (02/28/2024 4:08 PM EST) Alkaline Phosphatase 134(H) 45 - 128 U/L 02/28/2024 4:58 PM [facility] Aspartate Aminotrans (AST) 28 10 - 55 U/L 02/28/2024 4:58 PM [facility] Alanine Aminotrans (ALT) 30 10 - 55 U/L 02/28/2024 4:58 PM [facility] Bilirubin, Total 0.3 0.2 - 1.0 mg/dL 02/28/2024 4:58 PM [facility] Protein, Total 7.5 6.3 - 8.3 g/dL 02/28/2024 4:58 PM [facility] Albumin 3.9 3.4 - 4.8 g/dL 02/28/2024 4:58 PM [facility] Bilirubin, Direct <0.1 0 - 0.2 mg/dL 02/28/2024 4:58 PM [facility] Globulin 3.6 1.5 - 3.9 g/dL 02/28/2024 4:58 PM [facility] Albumin/Globulin Ratio 1.1 1.0 - 3.0 Ratio 02/28/2024 4:58 PM [facility] Blood (Plasma/Serum) 02/28/2024 4:08 PM EST 02/28/2024 4:26 PM EST Sotero Headley MD LAB BLOOD ORDERABLES Performing Organization Address City/State/[facility] Co de Phone Number [address] [address], [facility] [address] [place] [address] from Last 3 Months Advance Directives * Full Code (Latest Code Status on File) Date Activated Date Inactivated Comments 02/28/2024 8:48 PM * Full Code Date Activated Date Inactivated Comments 02/28/2024 7:40 PM 02/28/2024 8:48 PM Care Teams Dog Breeder Relationship Specialty Start Date End Date Bonilla Grant MD [address] [place] [address] PCP - General Psychiatry, General 02/28/24
--- OUTSIDE RECORDS SUMMARY | 2024-04-16 14:53 | XMS_ITS | Encounter Summary ---
Author Organization [facility] Address [address] [place] [address] Care Team Providers Care Family Service Worker Name Role Phone Bonilla Grant DO Primary Care Provider [phone] Reason for Visit * Reason Comments Consult * Consultation (Routine) - Closed Specialty Diagnoses / Procedures Referred By Contac t Referred To Contact Hematology and Oncology Diagnoses Acute saddle pulmonary embolism without acute cor pulmonale (CMS/HCC) Acute deep vein thrombosis (DVT) of popliteal vein of right lower extremity (CMS/HCC) Bonilla Grant DO [address] [place], [place] Phone: tel: fax: Referral ID Status Reason Start Date Expiration Date V isits Requested Visits Authorized [id number] Closed Specialty Services Required 03/11/2024 03/11/2025 1 1 Encounter Details Date Type Department Care Team (Late st Contact Info) Description 04/07/2024 1:00 PM EST Office Visit [facility] Hematology Oncology [address] [place] [phone] Ranjana Sandoval MD [address] [place] [address] Acute saddle pulmonary embolism without acute cor [...] deep venous thrombosis, patient was transferred from 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 Lab Routine Acute saddle pulmonary embolism without acute cor pulmonale (CMS/HCC) Acute deep vein thrombosis (DVT) of popliteal vein of right lower extremity ([facility]/HCC) Expected: 04/07/2024, Expires: 04/07/2025 documented as of this encounter Results * Cardiolipin antibody (04/07/2024 1:57 PM EST) [facility] Cardiolipin Antibody Screen Negative Negative LAB CHEMISTRY METHOD 04/08/2024 9:39 AM EST [facility] ([facility]) [facility] LAB Blood Venous blood specimen / Unknown Venipuncture / Unknown 04/07/2024 1:57 PM EST 04/07/2024 4:36 PM EST us Ranjana Sandoval MD LAB BLOOD ORDERABLES Final R esult [facility] LAB [address] [place] [address], documented in this encounter Visit Diagnoses Diagnosis [...] 1 documented in this encounter Care Teams Family Service Worker Relationship Specialty Start Date End Date Bonilla Grant DO [address] [place] [address] PCP - General Family Medicine 03/10/24 documented as of this encounter
--- OUTSIDE RECORDS SUMMARY | 2024-04-16 14:53 | XMS_ITS | Clinical Summary ---
Author Organization [facility] Address [address] [place] [address] Phone Care Team Providers Care [employer] Name Role Phone Bonilla Grant DO Primary Care Provider [phone] Allergies Active Allergy Reactions Criticality Noted Date [...] Description 04/07/2024 1:00 PM EST Office Visit [facility] Hematology Oncology [address] [place] [address] Ranjana Sandoval MD Acute saddle [...] Description 06/17/2024 1:15 PM EDT Office Visit [facility] Hematology Oncology [address] [place] [phone] Ranjana Sandoval MD [address] [place] [address] Health Maintenance Due Date Last Done Comments [...] popliteal vein of right lower extremity (CMS/HCC) LUPUS ANTICOAGULANT WITH REFLEX TO MIXING STUDIES Routine 04/07/2024 1:57 PM EST Orthostatic headache Hyperthermia-induce d defect Blood coagulation disorder (CMS/HCC) CARDIOLIPIN ANTIBODY Routine 04/07/2024 1:57 PM [...] 4:48 PM EST [facility] RBC 4.10(L) 4.50 - 5.50 M/mcL LAB HEMETOLOGY METHOD 04/07/2024 4:48 PM EST [facility] Hemoglobin 12.6(L) 13.5 - 17.5 g/dL LAB HEMETOLOGY METHOD 04/07/2024 4:48 PM EST [facility] Hematocrit 39.4(L) 42.0 - 54.0 % LAB HEMETOLOGY METHOD 04/07/2024 4:48 PM [facility] MCV 96.1 79.0 - 98.0 FL LAB HEMETOLOGY METHOD 04/07/2024 4:48 PM [facility] MCH 30.7 27.0 - 32.0 pcg LAB HEMETOLOGY METHOD 04/07/2024 4:48 PM [facility] MCHC 32.0 32.0 - 37.0 g/dL LAB HEMETOLOGY METHOD 04/07/2024 4:48 PM [facility] RDW 13.2 11.0 - 15.0 % LAB HEMETOLOGY METHOD 04/07/2024 4:48 PM [facility] Platelets 181 130 - 400 K/mcL LAB HEMETOLOGY METHOD 04/07/2024 4:48 PM [facility] MPV 10.0 7.0 - 11.0 FL LAB HEMETOLOGY METHOD 04/07/2024 4:48 PM [facility] NRBC 0.0 <1.0 % LAB HEMETOLOGY METHOD 04/07/2024 4:48 PM [facility] NRBC Absolute 0.00 <0.10 K/mcL LAB HEMETOLOGY METHOD 04/07/2024 4:48 PM [facility] Neutrophils Relative 51.4 % LAB HEMETOLOGY METHOD 04/07/2024 4:48 PM [facility] Lymphocytes Relative 31.6 % LAB HEMETOLOGY METHOD 04/07/2024 4:48 PM [facility] Monocytes Relative 9.6 % LAB HEMETOLOGY METHOD 04/07/2024 4:48 PM [facility] Eosinophils Relative 6.8 % LAB HEMETOLOGY METHOD 04/07/2024 4:48 PM [facility] Basophils Relative 0.4 % LAB HEMETOLOGY METHOD 04/07/2024 4:48 PM [facility] Immature Granulocytes Relative 0.2 % LAB HEMETOLOGY METHOD 04/07/2024 4:48 PM EST [facility] Neutrophils Absolute 2.80 1.50 - 7.00 K/mcL LAB HEMETOLOGY METHOD 04/07/2024 4:48 PM EST [facility] Lymphocytes Absolute 1.72 1.00 - 5.00 K/mcL LAB HEMETOLOGY METHOD 04/07/2024 4:48 PM EST [facility] Monocytes Absolute 0.52 0.20 - 1.00 K/mcL LAB HEMETOLOGY METHOD 04/07/2024 4:48 PM EST [facility] Eosinophils Absolute 0.37 0.00 - 0.50 K/mcL LAB HEMETOLOGY METHOD 04/07/2024 4:48 PM [facility] Basophils Absolute 0.02 0.00 - 0.20 K/mcL LAB HEMETOLOGY METHOD 04/07/2024 4:48 PM EST [facility] Immature Granulocytes Absolute 0.01 0.00 - 0.03 K/mcL LAB HEMETOLOGY METHOD 04/07/2024 4:48 PM [facility] Blood Venous blood specimen / Unknown Venipuncture / Unknown 04/07/2024 1:57 PM EST 04/07/2024 4:36 PM EST Ranjana Sandoval MD LAB BLOOD ORDERABLES Final R esult [facility] [address] [place] [address], * (ABNORMAL) Lupus anticoagulant with reflex to mixing studies (04/07/2024 1:57 PM EST) APTT 60(H) <43 Sec(s) 04/10/2024 12:56 PM EST [facility] aPTT Mix 1:1 38 <43 Sec(s) 04/10/2024 12:56 PM EST [facility] Hexagonal Phase Neutralization NA 04/10/2024 12:56 PM EST [facility] Dilute Cruz Viper Venom 57(H) <44 Sec(s) 04/10/2024 12:56 PM EST [facility] DRVVT 1:1 Mix 36 <44 Sec(s) 04/10/2024 12:56 PM EST [facility] DRVVT Confirmation NA 2024 12:56 PM EST [facility] Interpretation SEE BELOW 04/10/2024 12:56 PM EST [facility] Comment: Lupus anticoagulant not detected. Test performed at [facility], [address] , [place], [place] ??[address] ? [phone] Charlene Harding MD, PhD - Maintenance Electrician Blood Venous blood specimen / Unknown Venipuncture / Unknown 04/07/2024 1:57 PM EST 04/07/2024 4:35 PM EST Ranjana Sandoval MD LAB BLOOD ORDERABLES Final R esult [facility] [address] [place] [address] * Cardiolipin antibody (04/07/2024 1:57 PM EST) [facility] Cardiolipin Antibody Screen Negative Negative LAB CHEMISTRY METHOD 04/08/2024 9:39 AM EST [facility] Blood Venous blood specimen / Unknown Venipuncture / Unknown 04/07/2024 1:57 PM EST 04/07/2024 4:36 PM EST Ranjana Sandoval MD LAB BLOOD ORDERABLES Final R esult [facility] [address] [place] [address], [place] [phone] * Colonoscopy (03/02/2021) [facility] Colonoscopy no interpretation abstracted Anatomical Region Laterality Modality Other Historical Provider HEALTH MAINTENANCE Final Result from Last 3 Months or Most Recently Relevant to Health Maintenance Insurance [place] - [place] MEDICARE ADVANTAGE [place] - [place] Care Teams [employer] Relationship Specialty Start Date End Date Bonilla Grant DO [address] [place], [place] PCP - General Family Medicine 03/10/24
--- NOTE | 2024-04-17 10:16 | HO.ANESPROP2 ---
Documented by User: Amber Weaver NP 04/17/24 10:53 HPI - Anesthesia Eval Consult details Narrative: 68yo M for Revision Intrathecal Drug Implant 02/2024 PE and RLE DVT - [facility] for hypoxia, bilat PE tx'd to [facility] and underwent aspiration thrombectomy with improvement in PASP and hemodynamics per PCP post-discharge f/u On coumadin Per pt's , instructed to hold coumadin [address] Lim. No bridging instructions, no contact with pt's Medical Care Administrator, Dr Sandoval. Requested D/C summary from [facility] s/p L1-2 Laminotomy and Intrathecal Drug Delivery Implant 01/2024 with GA-ETT 7.5 s/p attempted Intrathecal Drug Delivery Implant 07/2023 with GA-LMA 5 Afib: 1 x r/t drug allergy ROSS: No cpap use d/t intolerance/pain GERD: ppi mostly covers Neurogenic bladder: Self caths PMFSH Active Problems Active Problems: All Active Problems CSF leak (Acute) Cervicalgia (Acute) Chronic pain syndrome (Acute) Spinal cord stimulator dysfunction (Acute) Spinal stenosis of lumbar region with radiculopathy (Acute) Epidural lipomatosis (Acute) Muscle spasm (Acute) Osteoarthritis of hips, bilateral (Acute) Sacroiliac joint pain (Acute) Bilateral lumbar radiculopathy (Acute) Spondylosis of lumbar spine (Acute) Bilateral hip pain (Acute) Spondylolisthesis (Acute) Past Medical History Medical History (Updated 04/17/24 @ 11:05 by MARK Bustamante) LAU (dyspnea on exertion) ROSS (obstructive sleep apnea) Arthritis Hiatal hernia Anxiety Depression Elevated cholesterol Atrial fibrillation Umbilical hernia Habitual snoring Sleep apnea Self-catheterizes urinary bladder Disorder of sacroiliac joint Lumbar spinal stenosis Thyroid disease GERD (gastroesophageal reflux disease) Cognitive disorder Back pain Bladder atony Osteoarthritis of hips, bilateral Hypothyroidism Hyperlipidemia Bipolar 1 disorder DVT (deep venous thrombosis) COVID-19 Lynette's thyroiditis Sacroiliac joint pain Bilateral lumbar radiculopathy Spondylosis of lumbar spine Bilateral hip pain Spondylolisthesis Family History Family history of problems with anesthesia: No Surgical History Surgical History (Updated 04/18/24 @ 06:19 by Rossy Luciano RN) Previous back surgery History of hand surgery History of esophagogastroduodenoscopy (EGD) (~10/2023) Hx of umbilical hernia repair Hx of colonoscopy History of Problems with Anesthesia: No Social History Social History Household Members: Spouse Housing: House Are you a primary college and career counselor to a significant other at home: No Do you presently have visiting nurse or other home services: No Patient Tobacco Use Status: Never used Tobacco e-Cigarette/Vaping Use: Never Used Use of substances other than those prescribed or required for medical reasons: No Have you been hit, kicked, punched, or otherwise hurt by someone within the past year? If so, by whom?: No Are you DNR?: No Advance Directives: No Advance Directives Information Provided: No Advance Directives on File: No Recently lost weight without trying: No How much weight loss: Not applicable Eating poorly because of decreased appetite: No Nutrition screen score: 0 Nutrition Risks: No Nutritional Risk Poor oral hygiene: Yes (missing teeth) Meds Allergies Allergy/AdvReac Type Severity Reaction Status Date / Time oxycodone AdvReac Severe vertigo Verified 04/18/24 06:19 sulfamethoxazole AdvReac Severe AFIB Verified 04/18/24 06:19 [From Bactrim] trimethoprim [From Bactrim] AdvReac Severe AFIB Verified 04/18/24 06:19 Home Medications ?Medication ?Instructions ?Recorded ?Confirmed ?Last Taken ?Type carbamazepine 200 mg tablet 400 mg PO BEDTIME 05/27/21 04/18/24 Unknown History (Tegretol) duloxetine 30 mg capsule,delayed 30 mg PO BEDTIME 05/27/21 04/18/24 Unknown History release duloxetine 60 mg capsule,delayed 60 mg PO BEDTIME 05/27/21 04/18/24 Unknown History release levothyroxine 50 mcg tablet 50 mcg PO DAILY 05/27/21 04/18/24 04/18/24 History metoprolol tartrate 25 mg tablet 25 mg PO BID 05/27/21 04/18/24 04/17/24 History pantoprazole 40 mg tablet,delayed 40 mg PO BID 05/27/21 04/18/24 01/18/24 History release topiramate 25 mg tablet 25 mg PO BID 05/27/21 04/18/24 01/18/24 History acetaminophen 500 mg capsule 1,000 mg PO Q6H PRN Pain 10/12/23 04/18/24 Unknown History atorvastatin 20 mg tablet 20 mg PO BEDTIME 10/12/23 04/18/24 Unknown History cranberry extract 500 mg capsule 1,500 mg PO DAILY 10/12/23 04/18/24 Unknown History (Cranberry Concentrate) d-mannose 500 mg capsule 500 mg PO DAILY 10/12/23 04/18/24 Unknown History warfarin 5 mg tablet 5 mg PO DAILY 03/05/24 04/18/24 04/11/24 History cephalexin 500 mg capsule 1,000 mg PO Q8H PRN uti 04/18/24 04/18/24 Unknown History Exam Pertinent Lab Results Pertinent Lab Results: Laboratory Tests 02/28/24 12:40 WBC 10.6 Hgb 14.6 Hct 44.3 Plt Count 169 Sodium 140 Potassium 4.4 Chloride 111 H Carbon Dioxide 22 BUN 20 H Creatinine 1.29 Narrative Narrative: EKG 02/2024 Vent. Rate : 105 BPM Atrial Rate : 105 BPM P-R Int : 198 ms QRS Dur : 86 ms QT Int : 332 ms P-R-T Axes : 44 108 40 degrees QTcB Int : 438 ms Sinus tachycardia Rightward axis Low voltage QRS Borderline ECG When compared with ECG of 12-Oct-2023 13:11, Vent. rate has increased by 43 bpm QRS axis Shifted right Assessment and Plan Assessment Anesthesia Assessment: Chart Reviewed Final Anesthetic Review Family History of Problems with Anesthesia: No History of Problems with Anesthesia: No Documented by User: Kulwant Padilla MD 04/18/24 07:33 [facility] Past Medical History Medical History (Updated 04/17/24 @ 11:05 by MARK Bustamante) LAU (dyspnea on exertion) ROSS (obstructive sleep apnea) Arthritis Hiatal hernia Anxiety Depression Elevated cholesterol Atrial fibrillation Umbilical hernia Habitual snoring Sleep apnea Self-catheterizes urinary bladder Disorder of sacroiliac joint Lumbar spinal stenosis Thyroid disease GERD (gastroesophageal reflux disease) Cognitive disorder Back pain Bladder atony Osteoarthritis of hips, bilateral Hypothyroidism Hyperlipidemia Bipolar 1 disorder DVT (deep venous thrombosis) COVID-19 Lynette's thyroiditis Sacroiliac joint pain Bilateral lumbar radiculopathy Spondylosis of lumbar spine Bilateral hip pain Spondylolisthesis Surgical History Surgical History (Updated 04/18/24 @ 06:19 by Rossy Luciano RN) Previous back surgery History of hand surgery History of esophagogastroduodenoscopy (EGD) (~10/2023) Hx of umbilical hernia repair Hx of colonoscopy Social History Social History Household Members: Spouse Housing: House Are you a primary college and career counselor to a significant other at home: No Do you presently have visiting nurse or other home services: No Patient Tobacco Use Status: Never used Tobacco e-Cigarette/Vaping Use: Never Used Use of substances other than those prescribed or required for medical reasons: No Have you been hit, kicked, punched, or otherwise hurt by someone within the past year? If so, by whom?: No Are you DNR?: No Advance Directives: No Advance Directives Information Provided: No Advance Directives on File: No Recently lost weight without trying: No How much weight loss: Not applicable Eating poorly because of decreased appetite: No Nutrition screen score: 0 Nutrition Risks: No Nutritional Risk Poor oral hygiene: Yes (missing teeth) Meds Allergies Allergy/AdvReac Type Severity Reaction Status Date / Time oxycodone AdvReac Severe vertigo Verified 04/18/24 06:19 sulfamethoxazole AdvReac Severe AFIB Verified 04/18/24 06:19 [From Bactrim] trimethoprim [From Bactrim] AdvReac Severe AFIB Verified 04/18/24 06:19 Home Medications ?Medication ?Instructions ?Recorded ?Confirmed ?Last Taken ?Type carbamazepine 200 mg tablet 400 mg PO BEDTIME 05/27/21 04/18/24 Unknown History (Tegretol) duloxetine 30 mg capsule,delayed 30 mg PO BEDTIME 05/27/21 04/18/24 Unknown History release duloxetine 60 mg capsule,delayed 60 mg PO BEDTIME 05/27/21 04/18/24 Unknown History release levothyroxine 50 mcg tablet 50 mcg PO DAILY 05/27/21 04/18/24 04/18/24 History metoprolol tartrate 25 mg tablet 25 mg PO BID 05/27/21 04/18/24 04/17/24 History pantoprazole 40 mg tablet,delayed 40 mg PO BID 05/27/21 04/18/24 01/18/24 History release topiramate 25 mg tablet 25 mg PO BID 05/27/21 04/18/24 01/18/24 History acetaminophen 500 mg capsule 1,000 mg PO Q6H PRN Pain 10/12/23 04/18/24 Unknown History atorvastatin 20 mg tablet 20 mg PO BEDTIME 10/12/23 04/18/24 Unknown History cranberry extract 500 mg capsule 1,500 mg PO DAILY 10/12/23 04/18/24 Unknown History (Cranberry Concentrate) d-mannose 500 mg capsule 500 mg PO DAILY 10/12/23 04/18/24 Unknown History warfarin 5 mg tablet 5 mg PO DAILY 03/05/24 04/18/24 04/11/24 History cephalexin 500 mg capsule 1,000 mg PO Q8H PRN uti 04/18/24 04/18/24 Unknown History Exam Airway Mallampati Class: II TM Dist: <=3cm Neck ROM: Full Loose/Missing/Broken Teeth: Yes and Upper Heart: ok. see above. Lungs: ok Assessment and Plan Assessment Anesthesia Assessment: Anesthesia Plan Discussed Final Anesthetic Review NPO: Yes ASA Class: III Final Preanesthetic Review: No Changes in Pt Med Stat, Meds/Allgs Chart Reviewed, Consent Obtained/Reviewed and Anes Risks/Benef Reviewed Patient Risk: Intermediate Procedure Risk: Intermediate Anesthetic Plan Anesthetic Plan: GA and Agree w/ Assess. and Plan Disposition: Standard PACU
[2024-04-18] VITALS (9 sets, daily range): BP systolic 124–156; BP diastolic 75–90; PULSE 62–70; RESP 14–18; TEMP 36.3–36.5; O2SAT 93–99; BMI 28.3
[2024-04-18] MEDS: Lactated Ringers 1,000 ML 100 ML IVCONT (06:46)
--- NOTE | 2024-04-18 06:51 | P.HPSUR_ITS ---
Pre-Procedural Eval Section A - 24 Hr Update-Section A only Date of Service: 04/18/24 The patient is an INPATIENT: No Changes since office visit: Yes Patient answered all questions The patient has been examined within 24 hours of the surgical procedure. The History & Physical has been completed within 30 days and I have reviewed it.: No Section B - Complete if H&P > 30 days Chief Complaint: Cerebrospinal fluid leak, unspecified Details of Present Illness: as above Present Medications: None Medical History: No relevant PMH History of Previous Operations: Relevant previous surgery/procedure and date(s) (RFA lumbar) Allergies: Allergies Allergy/AdvReac Type Severity Reaction Status Date / Time oxycodone AdvReac Severe vertigo Verified 04/18/24 06:19 sulfamethoxazole AdvReac Severe AFIB Verified 04/18/24 06:19 [From Bactrim] trimethoprim [From Bactrim] AdvReac Severe AFIB Verified 04/18/24 06:19 Review of Systems Sugical H&P ROS: Negative: Constitution, Cardiovascular, Respiratory, Neurologic al, Psychiatric, Hem-Onc, Allergic/Immunologic, Gastrointestinal, Integumentary, Endocrine and Eyes/Ears/Nose/Throat and Yes, Specify: Genitourinary (urinary incontinence and retention due to yatrogenic cauda equina syndrome.) and Musculoskeletal (as above ) Exam Surgical H&P Exam: Normal: HEENT, Normal: Heart, Normal: Lungs, Normal: Extremities, Normal: Abdomen, Normal: Skin and Normal: Neurological Plan Diagnosis/Plan: Unchanged I have reviewed the history and physical and performed a pertinent physical examination on my patient. No changes have occurred unless specified. Time Spent With Patient Time: Total time managing care of this patient today ____ minutes.
[2024-04-18 07:03] LABS: INTERNATIONAL NORM RATIO 1.2 (0.9-1.1); Prothrombin Time 13.9 SEC (10.9-12.4)
--- NOTE | 2024-04-18 09:01 | W.PM.OPN ---
Operative Note Operative Note Date of Service: 04/18/24 Narrative: Preoperative Diagnosis: Subcutaneous fluid collection/cerebral spinal fluid Postoperative diagnosis: Intact pain pump. Unexplained spinal fluid leak. Operation: Inspection of pain pump integrity and attempted closure and attempted closure of periventricular spinal fluid leak Consent Informed Consent was obtained for this operation. I have explained the nature, purpose and benefits of the operation. I have discussed the risks and benefit of the operation including possible complications or adverse events with patient/family. Alternative(s) were discussed with the patient with their relative benefits and risks as well as the consequences of not accepting the operation were included in obtaining consent. Surgeon: GRACE SLADE MD, PHD Co Surgeon: Napoleon Lim MD Description of Procedure This 68-year-old male is suffering from chronic pain syndrome. He underwent a pain pump insertion on 01/18/2024. He developed a large fluid collection 2 months postoperatively. Aspiration reviewed most likely CSF. It was decided to bring the patient back to surgery to inspect the pump and to see if there is a cause for the CSF leak that can be fixed. The procedure complications were explained. The patient was consented. The patient was brought to the operating room and endotracheally intubated. The patient was turned in prone position on the Vivek frame. Prep and drape was done followed by timeout. The previous midline incision over the L1-L2 interspace was opened and immediately large quantities of spinal fluid leak released. The catheter was exposed and followed to its intradural origin. No breakage or leakage of the catheter was noted. CSF was returning around the catheter insertion site. We then also opened the pump side where again large quantities of CSF were evacuated. The catheter was flushed and no resistance was observed. The conclusion is that we are dealing with an unexplained periventricular spinal fluid leak developed late in the postoperative phase. Leakage around the catheter only occurs when there is some form of high intraspinal pressure for unknown reason. We decided to put a piece of DuraGen and glue in an attempt to resolve the issue. However, I think the chances are high that the leakage will return and then the system has to be removed. Hemostasis was done, the incision was closed in 3 layers with a running nylon for the skin. Then Dr. Mckinley took over to complete the procedure which will be dictated in a separate report. Dr. Lim reinserted the pump and closed the paralumbar incision. Estimated Blood Loss (ml): 30 mL Complications: None Duration of Surgery: 90 min Postoperative Plan: Discharge to home
--- NOTE | 2024-04-18 09:43 | PM.OP ---
Brief Operative Note Date of Service: 04/18/24 Pre-op diagnosis: CSF leak, presence of intrathecal pain pump. Post-op diagnosis: same Procedure: Inspection of the intrathecal pain pump system, repair of the CSF leak, reinsertion of the pain pump with closure. Implants: The implant will be the same intrathecal pain pump SynchroMed 3 and intrathecal catheter ascenda. Surgeon: Napoleon Lim MD Anesthesia: GLMA Was an Wire Winding Machine Tender used for this Procedure?: No Estimated blood loss (mL): 18 Pathology: none sent Condition: stable Disposition: PACU
[2024-04-18] MEDS: Acetaminophen 1,000 MG/100 ML PIGGYBACK 400 MG IV (09:45)
--- NOTE | 2024-04-18 09:47 | W.PM.OPN ---
Operative Note Operative Note Date of Service: 04/18/24 Narrative: Reinsertion of the intrathecal pain pump. After Dr. Feldman completed repair of the CSF leak and closure of the midline spinal wound attention was attracted to the left lateral upper buttock incision where the pocket of the pain pump was located. The pain pump pocket was irrigated with vancomycin containing normal saline after that 2 anchoring 0-0 Tycron sutures were applied to most inferior lateral and most inferior medial corners of the pocket. The Tycron sutures were connected to bracket on the body of the pump. After that the intrathecal catheter was gathered behind the body of the pain pump and the pump and intrathecal catheter were dislodged into the pocket. After that the anchoring sutures were tied. Noncoring 25 gauge needle was obtained, it was inserted into the side port of the pain pump and aspiration of the 2 cc of clear CSF was performed without difficulty. After the the wound was irrigated again and it was closed using 0-0 Polysorb suture, 2-0 Polysorb suture were used to approximate the level of the skin and eyad were applied to the level of the skin. Bacitracin were applied to the level of the both wounds the sterile dressings were applied and it was affixed to the skin with Medipore tape. Upon completion of this procedure the patient was transferred to the stretcher extubated and transferred stable to PACU.
[2024-04-18] MEDS: fentaNYL citrate/PF 100 MCG/2 ML VIAL 50 MCG IVPUSH (09:55)
== END 2024-04-18 11:18 | disposition home or self-care (01) ==
PROVIDERS: Nurse Practitioner; PCP Family Medicine; Visit Provider Anesthesiology
PROC: (CPT 62350; principal; 2024-04-18 07:30)
DX: G96.00 Cerebrospinal fluid leak, unspecified (principal); G89.4 Chronic pain syndrome; Z97.8 Presence of other specified devices; M47.816 Spondylosis without myelopathy or radiculopathy, lumbar region; Z88.5 Allergy status to narcotic agent; M53.3 Sacrococcygeal disorders, not elsewhere classified; M16.0 Bilateral primary osteoarthritis of hip; F31.9 Bipolar disorder, unspecified; E06.3 Autoimmune thyroiditis; G47.33 Obstructive sleep apnea (adult) (pediatric); N31.2 Flaccid neuropathic bladder, not elsewhere classified; Z88.2 Allergy status to sulfonamides; M43.16 Spondylolisthesis, lumbar region; Z98.890 Other specified postprocedural states
CPT/HCPCS: 63707; 62350; 36415; 85610; C1763; J0131; J0690; J2003; J2250; J2704; J2795; J3010; J3370

== ENCOUNTER → 2024-04-18 06:01 | Outpatient (BNV) | payer MEDICARE, MEDICAID, SELFPAY | PROVIDERS: PCP Family Medicine; Visit Provider Neurological Surgery | DX: G96.09 Other spinal cerebrospinal fluid leak (principal); Z97.0 Presence of artificial eye | CPT/HCPCS: 63707 ==

== ENCOUNTER → 2024-04-18 06:01 | Outpatient (BNV) | payer MEDICARE, MEDICAID, SELFPAY | PROVIDERS: PCP Family Medicine; Visit Provider Anesthesiology | DX: G96.09 Other spinal cerebrospinal fluid leak (principal); Z97.8 Presence of other specified devices | CPT/HCPCS: 62362; 63707 ==

== ENCOUNTER 2024-04-25 14:25 | Outpatient (AMB) | payer MEDICARE, MEDICAID, SELFPAY ==
--- NOTE | 2024-04-25 14:27 | A.OFFVIS_ITS ---
Vital Signs 04/25/24 14:33 Height 5 ft 7 in Weight 180 lb BMI 28.2 BP 138/80 Blood Pressure Location Lt brachial Position Sitting Pulse 80 Pulse Source Pulse Oximeter Pulse Oximetry (%) 98 Oxygen Delivery Method Room Air Intake Visit Reasons: DRESSING CHANGE Intake Note: Pain today 8/10 Director Of Health Care Marketing Required: No Accompanied by: Spouse Allergies oxycodone Adverse Reaction (Severe, Verified 04/25/24 14:35) vertigo sulfamethoxazole [From Bactrim] Adverse Reaction (Severe, Verified 04/25/24 14:35) AFIB trimethoprim [From Bactrim] Adverse Reaction (Severe, Verified 04/25/24 14:35) AFIB HPI Comments Details: Patient presents today for dressing change one week status post repair of the CSF leak and closure of the midline spinal wound by Dr. Feldman and reinsertion of the intrathecal pain pump by Dr. Lim on 04/18/24. 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 Denies any fever, chills, weakness, numbness, or tingling, bladder or bowel dysfunction or saddle anesthesia. Currently, the pain management regimen involves tramadol use, with alternatives like Tylenol employed for less severe pain episodes. The conversation clarified the plan for continuing the pain pump at minimal current settings with a follow- up planned next week with Dr. Lim in the office. The dressings were changed today in the office. Dressings were removed. The two incisional wounds were examined today. They are healing without complications. All incisions are secured with intact eyad to left buttock and sutures to midline back incision. The wounds are clean, no pathological discharge, no redness, no swelling, no local temperature, no tenderness on palpation. The wounds were washed with ChloraPrep and bacitracin ointment with dry sterile dressings were applied. - Affect: Patient is concerned about pain related to function. - Analgesia: Tramadol prescribed, pain currently 8/10; backup use with Tylenol. - Adverse Effects: No noted adverse effects from pain medications. - Activities of Daily Living: Sleep impacted due to incisional pain and knee stiffness. - Aberrant Drug Related Behaviors: No misuse of prescribed medication noted. PRIOR Dr. Lim 04/09/24: Carlito came today in my office after the consult with With a neurosurgeon Dr. Velasco. Recommendations of Dr. Velasco are to perform dye study of the pain pump and also to perform analysis of the fluid collected around the pump and send it for presence of transferrin betta to diagnose or reject the hypothesis that this is CSF. I will invite him tomorrow for this procedure, I also will culture this fluid for the presence of infection. In personal conversation Dr. Velasco told me that is highly unlikely to be CSF, CSF leaks usually occur immediately after the procedure and it has been 2 months since he received the procedure. He reports itchiness on application of the PTM. Possibility exists that he responds to small doses of fentanyl in subcutaneous tissues. Past Procedures: 01/18/2024: Implantation of the I DDD with neurosurgical implanted intrathecal catheter via anatomy. 08/10/23: Attempt of ITDD implant-0% pain relief, procedure aborted 05/22/23: ITDD trial with Fentanyl -80% pain relief for 28 hours 04/20/23: Lumbar Nevro SCS trial-30-40% pain relief [facility] Medical History LAU (dyspnea on exertion) ROSS (obstructive sleep apnea) Arthritis Hiatal hernia Anxiety Depression Elevated cholesterol Atrial fibrillation Umbilical hernia Habitual snoring Sleep apnea Self-catheterizes urinary bladder Disorder of sacroiliac joint Lumbar spinal stenosis Thyroid disease GERD (gastroesophageal reflux disease) Cognitive disorder Back pain Bladder atony Osteoarthritis of hips, bilateral Hypothyroidism Hyperlipidemia Bipolar 1 disorder DVT (deep venous thrombosis) COVID-19 Lynette's thyroiditis Sacroiliac joint pain Bilateral lumbar radiculopathy Spondylosis of lumbar spine Bilateral hip pain Spondylolisthesis Surgical History Previous back surgery History of hand surgery History of esophagogastroduodenoscopy (EGD) (~10/2023) Hx of umbilical hernia repair Hx of colonoscopy Social History Household Members: Spouse Housing: House Are you a primary career specialist to a significant other at home: No Do you presently have visiting nurse or other home services: No Comment: COUNTS CORRECT Patient Tobacco Use Status: Never used Tobacco e-Cigarette/Vaping Use: Never Used Review of Systems Const All systems reviewed & are unremarkable except as noted in HPI and below Physical Exam General: Appears afebrile. Alert and oriented. Mood and affect appropriate. Follows and participates in conversation appropriately. Respiratory effort is unlabored. Able to transition from sit to stand unassisted. Ambulates with bilaterally normal heel strike and toe off. Dressings change done in office today. Patient is wearing abdominal binder. Extrem General: Yes capillary refill normal, Yes no clubbing, cyanosis or edema and Yes no calf tenderness Results Reviewed Results Reviewed: CT lumbar post myelography 04/15/24 CLINICAL INDICATION: CSF fluid leak. COMPARISON: Lumbar spine x-ray 04/09/2024. TECHNIQUE: Axial 3 mm thin and reformatted 2 mm thin sagittal and coronal images of lumbar spine were obtained following insertion of mL of nonionic Omnipaque 300 Neuro contrast through epidural catheter by Dr. Lim. DLP 620 mGy/cm. FINDINGS: On sagittal reconstructed images is maintained lumbar lordosis. There is grade 1 anterolisthesis L5 on S1. Rest of the vertebral alignment is normal. There is loss of disc height virtually at every disc level sparing the L4-5 disc level with ventral and posterior spondylosis. At T12-L1 disc level there is posterior spondylosis/bulge complex with mild spinal canal narrowing. There is mild narrowing of the right neural foramina. At L1-L2 disc level there is posterior spondylosis/bulge complex with moderate canal stenosis there is bilateral moderate narrowing of neural foramina. There is extraspinal catheter entering the intrathecal sac from posterior approach with its tip extending superiorly above the T12 vertebra not in the [id number]. There is a large posterior soft tissue CSF and contrast collection likely punctured or severed catheter. At L2-3 disc level there is posterior spondylosis/bulge complex resulting in moderate concentric canal stenosis. There is bilateral mild facet joint hypertrophy resulting in bilateral neural foraminal narrowing. At L3-4 disc level there is severe spinal canal stenosis from a combination of disc bulge/osteophyte complex and bilateral moderate facet joint hypertrophy. There is bilateral mild to moderate narrowing of neural foramina. At L4-5 disc level there is severe concentric canal stenosis. The neural foramina are bilaterally moderately narrowed. L5-S1 disc level is anterolisthesis with broad-based diffuse pseudodisc bulge resulting in severe spinal canal stenosis. The neural foramina are mildly narrowed bilaterally. Bilateral L5 pars defects are noted. Posterior to L1-L2 disc level there is a large sac consistent with CSF and contrast measuring 6.1 cm in craniocaudad length, 5.5 cm in AP and 3.4 cm wide on sagittal image 33/6 and axial image 40/4. IMPRESSION: Grade 1 anterolisthesis L5-S1 with degenerative disc changes which at every disc level sparing the L4-5 disc level. There is moderate ventral and posterior spondylosis. There is multilevel spinal canal stenosis. There is intrathecal catheter entering the L1-L2 posterior interlaminar space with the tip extending superior to T12 vertebra not in the [id number]. There is a large fluid collection posterior L1-L2 disc level where the catheter appears very irregular and likely perforated resulting in extravasation of CSF and contrast as measured above. This is likely site of CSF leak. Assessment & Plan Assessment & Plan (1) Chronic pain syndrome: Code(s): G89.4 - Chronic pain syndrome Category: Medical (2) Spondylosis of lumbar spine: Code(s): M47.816 - Spondylosis without myelopathy or radiculopathy, lumbar region Category: Medical (3) Presence of intrathecal pump: Code(s): Z97.8 - Presence of other specified devices Category: Medical Plan The patient was managed post-operatively concentrating on his surgical recovery and any ensuing pain. His treatment focused on existing pain levels and medication utilization. We discussed ensuring tramadol availability as the patient experiences pain severity changes, managed by both tramadol and Tylenol options. We observed no current concerns regarding misuse. A subsequent visit will help monitor his progress and manage settings for the intrathecal pump concerning maintaining minimal settings for the advised time span. The dressings were changed today in the office. The patient will follow up in one week for dressing change and eyad/sutures removal. Reviewed activity restrictions with patient and family. Patient is wearing his abdominal binder. All questions and concerns have been answered and patient agreed with the plan. Follow up next week as planned and sooner as needed. Patient was informed and verbally consented to the use of an ambient scribe for clinic note documentation during this visit. Patient Instructions: - Follow up with Dr. Lim as scheduled next week. - Monitor for any changes in pain or signs of infection (fever, unusual swelling or redness). - Use current supply of tramadol as directed for pain management, with Tylenol as an option for milder pain. - Maintain current sleeping positions to minimize knee stiffness. - Confirm the setting and management of the intrathecal pump at the next con sultation. Coding Level of Care Code Est Pt Level 3 (26018) Complex EM visit Add On G2211 Diagnoses Chronic pain syndrome G89.4 Spondylosis of lumbar spine M47.816 Presence of intrathecal pump Z97.8
[2024-04-25 14:33] VITALS: BP 138/80; PULSE 80; O2SAT 98; BMI 28.2
--- OUTSIDE RECORDS SUMMARY | 2024-04-25 16:05 | XMS_ITS | Clinical Summary ---
Author Organization [facility] Address [address] [place] [address] Phone Care Team Providers Care Electric Track Switch Maintainer Name Role Phone Bonilla Grant DO Primary Care Provider [phone] Allergies Active Allergy Reactions Criticality Noted Date [...] 04/07/2024 1:00 PM EST Office Visit [facility] Hematology Oncology [address] [place] [address] Ranjana Sandoval MD Acute saddle [...] 06/17/2024 1:15 PM EDT Office Visit [facility] Hematology Oncology [address] [place] [id number] Ranjana Sandoval MD [address] [place] [address] Health Maintenance Due Date Last Done Comments [...] LAB HEMETOLOGY METHOD 04/07/2024 4:48 PM EST [facility] RBC 4.10(L) 4.50 - 5.50 M/mcL LAB HEMETOLOGY METHOD 04/07/2024 4:48 PM EST [facility] Hemoglobin 12.6(L) 13.5 - 17.5 g/dL LAB HEMETOLOGY METHOD 04/07/2024 4:48 PM EST [facility] Hematocrit 39.4(L) 42.0 - 54.0 % LAB HEMETOLOGY METHOD 04/07/2024 4:48 PM [facility] MCV 96.1 79.0 - 98.0 FL LAB HEMETOLOGY METHOD 04/07/2024 4:48 PM [facility] MCH 30.7 27.0 - 32.0 pcg LAB HEMETOLOGY METHOD 04/07/2024 4:48 PM [facility] MCHC 32.0 32.0 - 37.0 g/dL LAB HEMETOLOGY METHOD 04/07/2024 4:48 PM [facility] RDW 13.2 11.0 - 15.0 % LAB HEMETOLOGY METHOD 04/07/2024 4:48 PM [facility] Platelets 181 130 - 400 K/mcL LAB HEMETOLOGY METHOD 04/07/2024 4:48 PM [facility] MPV 10.0 7.0 - 11.0 FL LAB HEMETOLOGY METHOD 04/07/2024 4:48 PM [facility] NRBC 0.0 <1.0 % LAB HEMETOLOGY METHOD 04/07/2024 4:48 PM [facility] NRBC Absolute 0.00 <0.10 K/mcL LAB HEMETOLOGY METHOD 04/07/2024 4:48 PM [facility] Neutrophils Relative 51.4 % LAB HEMETOLOGY METHOD 04/07/2024 4:48 PM [facility] Lymphocytes Relative 31.6 % LAB HEMETOLOGY METHOD 04/07/2024 4:48 PM [facility] Monocytes Relative 9.6 % LAB HEMETOLOGY METHOD 04/07/2024 4:48 PM [facility] Eosinophils Relative 6.8 % LAB HEMETOLOGY METHOD 04/07/2024 4:48 PM [facility] Basophils Relative 0.4 % LAB HEMETOLOGY METHOD 04/07/2024 4:48 PM [facility] Immature Granulocytes Relative 0.2 % LAB HEMETOLOGY METHOD 04/07/2024 4:48 PM EST [facility] Neutrophils Absolute 2.80 1.50 - 7.00 K/mcL LAB HEMETOLOGY METHOD 04/07/2024 4:48 PM EST [facility] Lymphocytes Absolute 1.72 1.00 - 5.00 K/mcL LAB HEMETOLOGY METHOD 04/07/2024 4:48 PM EST [facility] Monocytes Absolute 0.52 0.20 - 1.00 K/mcL LAB HEMETOLOGY METHOD 04/07/2024 4:48 PM EST [facility] Eosinophils Absolute 0.37 0.00 - 0.50 K/mcL LAB HEMETOLOGY METHOD 04/07/2024 4:48 PM [facility] Basophils Absolute 0.02 0.00 - 0.20 K/mcL LAB HEMETOLOGY METHOD 04/07/2024 4:48 PM EST [facility] Immature Granulocytes Absolute 0.01 0.00 - 0.03 K/mcL LAB HEMETOLOGY METHOD 04/07/2024 4:48 PM [facility] Blood Venous blood specimen / Unknown Venipuncture / Unknown 04/07/2024 1:57 PM EST 04/07/2024 4:36 PM EST Ranjana Sandoval MD LAB BLOOD ORDERABLES Final R esult [facility] [address] [place] [address], * (ABNORMAL) Lupus anticoagulant with reflex to mixing studies (04/07/2024 1:57 PM EST) APTT 60(H) <43 Sec(s) 04/10/2024 12:56 PM EST [facility] aPTT Mix 1:1 38 <43 Sec(s) 04/10/2024 12:56 PM EST [facility] Hexagonal Phase Neutralization NA 04/10/2024 12:56 PM EST [facility] Dilute Cruz Viper Venom 57(H) <44 Sec(s) 04/10/2024 12:56 PM EST [facility] DRVVT 1:1 Mix 36 <44 Sec(s) 04/10/2024 12:56 PM EST [facility] DRVVT Confirmation NA 2024 12:56 PM EST [facility] Interpretation SEE BELOW 04/10/2024 12:56 PM EST [facility] Comment: Lupus anticoagulant not detected. Test performed at [facility], [address] , [place], [place] ??[address] ? [phone] Charlene Harding MD, PhD - Scan Coordinator Blood Venous blood specimen / Unknown Venipuncture / Unknown 04/07/2024 1:57 PM EST 04/07/2024 4:35 PM EST Ranjana Sandoval MD LAB BLOOD ORDERABLES Final R esult [facility] [address] [place] [address] * Cardiolipin antibody (04/07/2024 1:57 PM EST) [facility] Cardiolipin Antibody Screen Negative Negative LAB CHEMISTRY METHOD 04/08/2024 9:39 AM EST [facility] Blood Venous blood specimen / Unknown Venipuncture / Unknown 04/07/2024 1:57 PM EST 04/07/2024 4:36 PM EST Ranjana Sandoval MD LAB BLOOD ORDERABLES Final R esult [facility] [address] [place] [address], [place] [phone] * Colonoscopy (03/02/2021) [facility] Colonoscopy no interpretation abstracted Anatomical Region Laterality Modality Other Historical Provider HEALTH MAINTENANCE Final Result from Last 3 Months or Most Recently Relevant to Health Maintenance Insurance [employer] - [place] MEDICARE ADVANTAGE [place]ICAID - [place] Care Teams Electric Track Switch Maintainer Relationship Specialty Start Date End Date Bonilla Grant DO [address], [place] PCP - General Family Medicine 03/10/24
--- OUTSIDE RECORDS SUMMARY | 2024-04-25 16:05 | XMS_ITS | Clinical Summary ---
Author Organization [facility] Address [address] [place] [address] Care Team Providers Care Rug Scratcher Name Role Phone Bonilla Grant MD Primary Care Provider [phone] Allergies Active Allergy Reactions Criticality Noted Date [...] EST - 02/28/2024 8:20 PM EST Surgery [facility] Heart [facility] V[facility] [place] [facility] - Cardiac Catheterization Laboratory [address] [place] [phone] Jerry Plata MD ARTERIOGRAPHY PULMONARY SELECT-BILAT 02/28/2024 4:25 PM EST Ancillary Procedure [facility] Radiology [address] [place] [phone] Provider, File Room 02/28/2024 4:20 PM EST Ancillary Procedure [facility] Radiology [address] [place] [phone] Provider, File Room 02/28/2024 4:20 PM EST Ancillary Procedure [facility] Radiology [address] [place] [phone] Provider, File Room 02/28/2024 3:53 PM EST - 03/04/2024 5:12 PM EST Hospital Encounter [facility] [address] [place] [phone] Sotero Headley MD Schreyer, Evan K, MD Pokhrel, Kamal, MD Shah, Nirali, MD Pulmonary embolism (HCC) (Primary Dx); Acute saddle pulmonary embolism without acute cor pulmonale (HCC) Discharge Disposition: Home or Self Care 02/28/2024 Travel from Last 3 Months Social History Tobacco Use Types Packs/Day Years Used Date Smoking Tobacco: Never Passive Smoke Exposure: Never Smokeless Tobacco: Never [facility] Utilities Answer Date Recorded In the [...] any time in the past 12 m [facility], were you homeless or living in a half-way (including now)? No 02/29/2024 Sex and Gender [...] 65 - 99 mg/dL 03/04/2024 2:38 PM [facility] Comment:Fasting: <100 mg/dL, Non-Fasting: <200 mg/dL (ADA 2005) Blood Urea Nitrogen (BUN) 16 8 - 21 mg/dL 03/04/2024 2:38 PM [facility] Creatinine 1.3 0.5 - 1.3 mg/dL 03/04/2024 2:38 PM [facility] eGFR 61 >59 03/04/2024 2:38 PM [facility] Comment:CKD-EPI (2020) in mL /min/1.73 sq meters. Sodium 140 136 - 145 mmol/L 03/04/2024 2:38 PM [facility] Potassium 4.6 3.4 - 5.3 mmol/L 03/04/2024 2:38 PM [facility] Chloride 102 98 - 107 mmol/L 03/04/2024 2:38 PM [facility] CO2 25 22 - 33 mmol/L 03/04/2024 2:38 PM [facility] Anion Gap 13 7 - 17 03/04/2024 2:38 PM [facility] Calcium 9.1 8.7 - 10.5 mg/dL 03/04/2024 2:38 PM [facility] BUN/Creatinine Ratio 12 10.0 - 25.0 Ratio 03/04/2024 2:38 PM [facility] Blood (Plasma/Serum) 03/04/2024 12:51 PM EST 03/04/2024 2:01 PM EST Mariah Messer MD [place] [address], [place] [address] * (ABNORMAL) proBNP, N-terminal (03/04/2024 5:56 AM EST) Only the most recent of2 resultswithin the time period is included. [facility] proBNP, N-terminal 296(H) <125 pg/mL 03/04/2024 9:02 AM EST [facility] Plasma specimen / Unknown 03/04/2024 5:56 AM EST 03/04/2024 6:30 AM EST Mariah Messer MD LAB BLOOD ORDERABLES Performing Organization Address City/[facility] [place] [address], [place] [address] * (ABNORMAL) Protime-INR (03/04/2024 5:56 AM EST) Only the most recent of6 resultswithin the time period is included. [facility] Anticoagulant WARFARIN (COUMADIN) 03/03/2024 11:00 PM EST Prothrombin Time (PT) 27.7(H) 10.0 - 13.5 seconds 03/04/2024 6:43 AM [facility] INR 2.4 03/04/2024 6:43 AM [facility] Comment:INR Therapeutic Rang es: Standard dose anticoagulant 2.0 to 3.0, High dose anticoagulant 2.5-3.5. Blood Plasma specimen / Unknown 03/04/2024 5:56 AM EST 03/04/2024 6:31 AM EST Mariah Messer MD LAB BLOOD ORDERABLES Performing Organization Address City/[facility] [place] [address], [place] [address] * (ABNORMAL) Complete Blood Count, WITHOUT Differential (routine) (03/04/2024 5:56 AM EST) Only the most recent of6 resultswithin the time period is included. [facility] White Blood Cell Count 5.8 4.0 - 11.0 Thou/uL 03/04/2024 6:35 AM [facility] Platelet Count 153 150 - 450 Thou/uL 03/04/2024 6:35 AM [facility] Hemoglobin 12.1(L) 13.0 - 17.7 g/dL 03/04/2024 6:35 AM [facility] Hematocrit 37.1(L) 39.0 - 54.0 % 03/04/2024 6:35 AM [facility] Red Blood Cell Count 3.82(L) 4.50 - 6.20 Mil/uL 03/04/2024 6:35 AM [facility] MCV 97 80 - 100 fL 03/04/2024 6:35 AM [facility] MCH 31.7(H) 27.0 - 31.0 pg 03/04/2024 6:35 AM [facility] MCHC 32.6 30.0 - 36.0 g/dL 03/04/2024 6:35 AM [facility] RDW 13.2 11.5 - 14.5 % 03/04/2024 6:35 AM [facility] MPV 10.4 7.5 - 12.5 fL 03/04/2024 6:35 AM [facility] Blood Blood specimen / Unknown 03/04/2024 5:56 AM EST 03/04/2024 6:30 AM EST Mariah Messer MD LAB BLOOD ORDERABLES Performing Organization Address City/[facility]/[place] [address], [place] [address] * Phosphorus (Routine) (03/04/2024 5:56 AM EST) Only the most recent of6 resultswithin the time period is included. Phosphorus 3.1 2.7 - 4.5 mg/dL 03/04/2024 7:02 AM [facility] Blood (Plasma/Serum) 03/04/2024 5:56 AM EST 03/04/2024 6:30 AM EST Mariah Messer MD LAB BLOOD ORDERABLES Performing Organization Address City/[facility]/[place] [address], [place] [address] * Magnesium (Routine) (03/04/2024 5:56 AM EST) Only the most recent of7 resultswithin the time period is included. Magnesium 2.0 1.6 - 2.7 mg/dL 03/04/2024 7:02 AM EST [facility] Blood (Plasma/Serum) 03/04/2024 5:56 AM EST 03/04/2024 6:30 AM EST Mariah Messer MD LAB BLOOD ORDERABLES Performing Organization Address City/State/[facility] Co de Phone Number [address] [address], [address] [address] * ECHOCARDIOGRAM COMPREHENSIVE (03/01/2024 2:41 PM EST) Pathologist [facility] IVS Mean (F:0.6-0.9, M:0.6-1.0) 1.2 cm IVS [...] original result was not included. ?? Department: [facility] Lab Patient: [id number] (KAREN GORDON) ?? Patient Location: ..[address] CPT Code: 68410 ICD-9: ?? Referring Physician: EVA MILLER Impression [...] Note Bob Gonzales MD - 03/01/2024 Department: [facility] Patient: [id number] (EVAN KAREN) Patient Location: .[address] CPT Code: 83181 ICD-9: Referring Physician: EVA MILLER Impression Critical [...] T 211(HH) <23 ng/L 02/29/2024 2:45 AM [facility] Comment:Recurring Critical R esult. Previously phoned. Delta (Change) 53(H) <3 02/29/2024 2:45 AM [facility] Comment:Decreased Blood (Plasma/Serum) 02/29/2024 1:29 AM EST 02/29/2024 1:42 AM EST Eva Miller APRN LAB BLOOD ORDERABLE S Performing Organization Address [facility]/[place] [address], [place] [address] * Lactic Acid, Plasma (Routine) (02/29/2024 1:29 AM EST) Only the most recent of3 resultswithin the time period is included. Lactic Acid 1.7 0.5 - 1.9 mmol/L 02/29/2024 2:19 AM EST [facility] Blood Plasma specimen / Unknown 02/29/2024 1:29 AM EST 02/29/2024 1:42 AM EST Eva Miller APRN [place] [address], [place] [address] * (ABNORMAL) Partial Thromboplastin Time (PTT) (02/28/2024 9:13 PM EST) Anticoagulant OTHER AGENT OR UNKNOWN 02/28/2024 9:14 PM EST Partial Thromboplastin Time (PTT) 60(H) 25 - 36 seconds 02/28/2024 10:03 PM EST [facility] Blood Plasma specimen / Unknown 02/28/2024 9:13 PM EST 02/28/2024 9:45 PM EST Eva Miller APRN LAB BLOOD ORDERABLE S Performing Organization Address City/[facility] [place] [address], [place] [address] * ECG 12 lead (02/28/2024 8:52 PM EST) Only the most recent of2 resultswithin the time period is included. Systolic BP 122 mmHg EKG [facility] Diastolic BP 74 mmHg EKG [facility] Ventricular rate 98 BPM EKG [facility] Atrial rate 98 BPM EKG [facility] P-R interval 174 ms EKG [facility] QRS duration 88 ms EKG [facility] Q-T interval 366 ms EKG [facility] QTC calculation (Bazett) 467 ms EKG [facility] P axis 57 degrees EKG [facility] R axis 108 degrees EKG [facility] T axis 51 degrees EKG [facility] 02/28/2024 8:52 PM EST Narrative EKG [facility] - 02/29/2024 6:56 AM EST [...] Whitaker MD ECG ORDERABLES Performing Organization Address City/[facility]/ZIP Co de Phone Number EKG [facility] * (ABNORMAL) POCT Glucose, Fingerstick [...] original result were not included. [facility] Heart & Vascular [place] [facility] - Cardiac Catheterization Laboratory [facility] Heart & Vascular [place] [facility] - Cardiac Catheterization Laboratory PATIENT DEMOGRAPHIC INFORMATION Name: Karen Gordon : 1955 68 y.o. Sex: male Gender: male Procedure Date: 02/28/2024 PROCEDURE DETAILS [employer]: Jerry Plata MD Fellow: MD Alla Gallegos MD Omar Yacob, MBBS Pearl Diver(s): none Indications for Procedure: Pulmonary embolism ?? [...] L/min/kg2 QS = 2.76 Tracings available in [employer] log report CLINICAL HISTORY 64-year-old male presents to the hospital shortness of breath found to have intermediate risk pulmonary embolism with risk enhancing features. PROCEDURE Informed consent was obtained; a procedural timeout was performed; the patient was prepped and draped in sterile fashion; Access: Right femoral vein Sheath: 24F Moldovan Under ultrasound guidance the right femoral vein was accessed with a 7F sheath. The vein was preclosed. A right heart catheterization was performed with a [place] Ritchie Catheter. A pigtail was used to [...] that I request from a [facility] PA/CURRICULUM AND ASSESSMENT COORDINATOR/fellow/staff member. Jerry Plata MD [facility] Heart & Vascular [place] 02/28/2024 ??7:34 PM Cardiac Protocol pulmonary hypertension [...] atypical angina PCI Indication: other. Indications for Laminator Preforms Visit: other indications Jerry Plata MD CV ENDOVASCULAR OR DERABLES * CC RIGHT HEART CATH, CORONARY ANGIOGRAM, CC THROMBECTOMY (02/28/2024 7:21 PM EST) Anatomical Region Laterality Modality Radiographic Evelyn ging Narrative 02/28/2024 7:59 PM EST Table formatting from the original result was not included. Images from the original result were not included. [facility] Heart & Vascular [place] [facility] - Cardiac Catheterization Laboratory [facility] Heart & Vascular [place] [facility] - Cardiac Catheterization Laboratory PATIENT DEMOGRAPHIC INFORMATION Name: Karen Gordon : 1955 68 y.o. Sex: male Gender: male Procedure Date: 02/28/2024 PROCEDURE DETAILS [employer]: Jerry Plata MD Fellow: MD Alla Gallegos MD Omar Yacob, MBBS Pearl Diver(s): none Indications for Procedure: Pulmonary embolism ?? [...] L/min/kg2 QS = 2.76 Tracings available in [employer] log report CLINICAL HISTORY 64-year-old male presents to the hospital shortness of breath found to have intermediate risk pulmonary embolism with risk enhancing features. PROCEDURE Informed consent was obtained; a procedural timeout was performed; the patient was prepped and draped in sterile fashion; Access: Right femoral vein Sheath: 24F Moldovan Under ultrasound guidance the right femoral vein was accessed with a 7F sheath. The vein was preclosed. A right heart catheterization was performed with a [place] Ritchie Catheter. A pigtail was used to [...] that I request from a [facility] PA/YUNIEL/fellow/staff member. Jerry Plata MD [facility] Heart & Vascular [place] 02/28/2024 ??7:34 PM Cardiac Protocol pulmonary hypertension [...] atypical angina PCI Indication: other. Indications for Laminator Preforms Visit: other indications Jerry Plata MD CV CARDIAC CATH OR DERABLES * (ABNORMAL) POCT O2 Saturation (AVOX) (02/28/2024 7:13 PM EST) Only the most recent of2 resultswithin the time period is included. CARMINE 48(A) 60 - 75 % Lot Number [id number] Engineering Technology Instructor Pass Pass Blood 02/28/2024 7:13 PM EST [...] 4.0 - 11.0 Thou/uL 02/28/2024 4:36 [address] [facility] Platelet Count 144(L) 150 - 450 Thou/uL 02/28/2024 4:36 PM [facility] Hemoglobin 13.6 13.0 - 17.7 g/dL 02/28/2024 4:36 PM [facility] Hematocrit 41.7 39.0 - 54.0 % 02/28/2024 4:36 PM [facility] Red Blood Cell Count 4.32(L) 4.50 - 6.20 Mil/uL 02/28/2024 4:36 PM [facility] MCV 97 80 - 100 fL 02/28/2024 4:36 PM [facility] MCH 31.5(H) 27.0 - 31.0 pg 02/28/2024 4:36 PM [facility] MCHC 32.6 30.0 - 36.0 g/dL 02/28/2024 4:36 PM [facility] RDW 13.2 11.5 - 14.5 % 02/28/2024 4:36 PM [facility] MPV 9.8 7.5 - 12.5 fL 02/28/2024 4:36 PM [facility] Neutrophils Auto 76.5 % 02/27/19 25 4:36 PM [facility] Immature Granulocytes 1.8 % 02/28/2024 4:36 PM [facility] Lymphocytes Auto 14.7 % 02/27/19 4:36 PM [facility] Monocytes Auto 6.3 % 02/28/2024 4:36 PM [facility] Eosinophils Auto 0.5 % 02/27/19 4:36 PM [facility] Basophils Auto 0.2 % 02/28/2024 4:36 PM [facility] Abs Neutrophils Auto 9.60(H) 2.00 - 7.50 Thou/uL 02/28/2024 4:36 PM [facility] Abs Immature Granulocytes 0.22(H) 0.00 - 0.10 Thou/uL 02/28/2024 4:36 PM [facility] Abs Lymphocytes Auto 1.84 1.50 - 4.50 Thou/uL 02/28/2024 4:36 PM [facility] Abs Monocytes Auto 0.79 0.20 - 1.50 Thou/uL 02/28/2024 4:36 PM [facility] Abs Eosinophils Auto 0.06 0.00 - 0.70 Thou/uL 02/28/2024 4:36 PM [facility] Abs Basophils Auto 0.02 0.00 - 0.20 Thou/uL 02/28/2024 4:36 PM [facility] Blood Blood specimen / Unknown 02/28/2024 4:08 PM EST 02/28/2024 4:26 PM EST Sotero Headley MD [place] [address], [place] [address] * (ABNORMAL) Hepatic Function Panel (02/28/2024 4:08 PM EST) Alkaline Phosphatase 134(H) 45 - 128 U/L 02/28/2024 4:58 PM [facility] Aspartate Aminotrans (AST) 28 10 - 55 U/L 02/28/2024 4:58 PM [facility] Alanine Aminotrans (ALT) 30 10 - 55 U/L 02/28/2024 4:58 PM [facility] Bilirubin, Total 0.3 0.2 - 1.0 mg/dL 02/28/2024 4:58 PM [facility] Protein, Total 7.5 6.3 - 8.3 g/dL 02/28/2024 4:58 PM [facility] Albumin 3.9 3.4 - 4.8 g/dL 02/28/2024 4:58 PM [facility] Bilirubin, Direct <0.1 0 - 0.2 mg/dL 02/28/2024 4:58 PM [facility] Globulin 3.6 1.5 - 3.9 g/dL 02/28/2024 4:58 PM [facility] Albumin/Globulin Ratio 1.1 1.0 - 3.0 Ratio 02/28/2024 4:58 PM [facility] Blood (Plasma/Serum) 02/28/2024 4:08 PM EST 02/28/2024 4:26 PM EST Sotero Headley MD LAB BLOOD ORDERABLES Performing Organization Address City/State/[facility] Co de Phone Number [address] [address], [facility] [address] [place] [address] from Last 3 Months Advance Directives * Full Code (Latest Code Status on File) Date Activated Date Inactivated Comments 02/28/2024 8:48 PM * Full Code Date Activated Date Inactivated Comments 02/28/2024 7:40 PM 02/28/2024 8:48 PM Care Teams Rug Scratcher Relationship Specialty Start Date End Date Bonilla Grant MD [address] [place] [address] PCP - General Psychiatry, General 02/28/24
--- OUTSIDE RECORDS SUMMARY | 2024-04-25 16:05 | XMS_ITS | Encounter Summary ---
Author Organization [facility] Address [address] [place] [address] Care Team Providers Care Audio Visual Collections Coordinator Name Role Phone Bonilla Grant DO Primary Care Provider [phone] Reason for Visit * Reason Comments Consult * Consultation (Routine) - Closed Specialty Diagnoses / Procedures Referred By Contac t Referred To Contact Hematology and Oncology Diagnoses Acute saddle pulmonary embolism without acute cor pulmonale (CMS/HCC) Acute deep vein thrombosis (DVT) of popliteal vein of right lower extremity (CMS/HCC) Bonilla Grant DO [address] [place], [place] Phone: tel: fax: Referral ID Status Reason Start Date Expiration Date V isits Requested Visits Authorized [id number] Closed Specialty Services Required 03/11/2024 03/11/2025 1 1 Encounter Details Date Type Department Care Team (Late st Contact Info) Description 04/07/2024 1:00 PM EST Office Visit [facility] Hematology Oncology [address] [place] [phone] Ranjana Sandoval MD [address] [place] [address] Acute saddle pulmonary embolism without acute cor [...] deep venous thrombosis, patient was transferred from [facility] to [facility] for thrombectomy, patient was on Lovenox [...] years ago 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 He is lives with his FAMILY HISTORY: [...] Allergen Reactions Bactrim [Sulfamethoxazole-Trimethoprim] Other Bactrim [Na Bptcxont-gblbjnbdhjbnzmhs-ckdicptlbvlv Oxycontin [Indigotine-oxycodone Hcl] Oxycontin [Oxycodone] PHYSICAL EXAM: [...] Description 06/17/2024 1:15 PM EDT Office Visit [facility] Hematology Oncology [address] [place] [phone] Ranjana Sandoval MD [address] [place] [address] Scheduled Orders Name Type Priority Associated Diagnoses Orde r Schedule Factor V leiden Lab Routine Acute saddle pulmonary embolism without acute cor pulmonale (CMS/HCC) Acute deep vein thrombosis (DVT) of popliteal vein of right lower extremity (CMS/HCC) 1 Occurrences starting 04/07/2024 until 04/07/2025 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 Lab Routine Acute saddle pulmonary embolism without acute cor pulmonale (CMS/HCC) Acute deep vein thrombosis (DVT) of popliteal vein of right lower extremity ([facility]/HCC) Expected: 04/07/2024, Expires: 04/07/2025 documented as of this encounter Results * Cardiolipin antibody (04/07/2024 1:57 PM EST) [facility] Cardiolipin Antibody Screen Negative Negative LAB CHEMISTRY METHOD 04/08/2024 9:39 AM EST [facility] Blood Venous blood specimen / Unknown Venipuncture / Unknown 04/07/2024 1:57 PM EST 04/07/2024 4:36 PM EST us Ranjana Sandoval MD LAB BLOOD ORDERABLES Final R esult [facility] LAB [address] [place] [address], documented in this encounter Visit Diagnoses Diagnosis [...] 1 documented in this encounter Care Teams Audio Visual Collections Coordinator Relationship Specialty Start Date End Date Bonilla Grant DO [address] [place] [address] PCP - General Family Medicine 03/10/24 documented as of this encounter
== END 2024-04-25 14:53 | disposition home or self-care (01) ==
LOC: HO.PMC 14:27
PROVIDERS: Absent Provider Nurse Practitioner Family; PCP Family Medicine; Visit Provider Nurse Practitioner Family
DX: G89.4 Chronic pain syndrome (principal); M47.816 Spondylosis without myelopathy or radiculopathy, lumbar region; Z97.8 Presence of other specified devices
CPT/HCPCS: 99024

== ENCOUNTER → 2024-04-25 14:25 | Outpatient (BNVA) | payer MEDICARE, MEDICAID, SELFPAY | PROVIDERS: Absent Provider Nurse Practitioner Family; PCP Family Medicine; Visit Provider Anesthesiology | DX: Z48.01 Encounter for change or removal of surgical wound dressing (principal); G89.4 Chronic pain syndrome; M47.816 Spondylosis without myelopathy or radiculopathy, lumbar region; Z96.82 Presence of neurostimulator | CPT/HCPCS: 99212 ==

== ENCOUNTER 2024-05-01 12:52 | Outpatient (AMB) | payer MEDICARE, MEDICAID, SELFPAY ==
--- NOTE | 2024-05-01 12:55 | MHC.OFFVIS ---
Vital Signs 05/01/24 12:58 Height 5 ft 7 in Weight 180 lb BMI 28.2 BP 125/85 Blood Pressure Location Lt brachial Position Sitting Pulse 72 Pulse Source Pulse Oximeter Pulse Oximetry (%) 98 Oxygen Delivery Method Room Air Intake Visit Reasons: Remove stitches Intake Note: Pain today 08/21 Inside Parts Sales Required: No Accompanied by: Spouse Allergies oxycodone Adverse Reaction (Severe, Verified 05/01/24 12:59) vertigo sulfamethoxazole [From Bactrim] Adverse Reaction (Severe, Verified 05/01/24 12:59) AFIB trimethoprim [From Bactrim] Adverse Reaction (Severe, Verified 05/01/24 12:59) AFIB HPI Comments Details: Carlito is back in my office for sutures and eyad removals and evaluation. The wounds healed completely. No redness no swelling no pathological discharge no tenderness on palpation. They were washed with ChloraPrep and eyad as well as nylon sutures were removed. Sterile dressings were applied. However there is a collection of the fluid palpable under the skin in the projection of the pain pump. He is scheduled on appointment to see me in the week. I might be willing to aspirate on that date collection if it still persists. The aspirate will be sent to [facility] 2 transferrin again. PRIOR: Carlito developed subcutaneous CSF leak after pain pump implantation. Revision was done on 04/18/2024 where the leak was discovered coming from the laminitomy and catheter insertion site. the duragen and neurosurgical glue were used to close the leak. never-the less expectations were high that the leak would return. Past Procedures: 04/18/2024: revision of the ItDD system 01/18/2024: Implantation of the I DDD with neurosurgical implanted intrathecal catheter via anatomy. 08/10/23: Attempt of ITDD implant-0% pain relief, procedure aborted 05/22/23: ITDD trial with Fentanyl -80% pain relief for 28 hours 04/20/23: Lumbar Nevro SCS trial-30-40% pain relief [facility] Medical History LAU (dyspnea on exertion) ROSS (obstructive sleep apnea) Arthritis Hiatal hernia Anxiety Depression Elevated cholesterol Atrial fibrillation Umbilical hernia Habitual snoring Sleep apnea Self-catheterizes urinary bladder Disorder of sacroiliac joint Lumbar spinal stenosis Thyroid disease GERD (gastroesophageal reflux disease) Cognitive disorder Back pain Bladder atony Osteoarthritis of hips, bilateral Hypothyroidism Hyperlipidemia Bipolar 1 disorder DVT (deep venous thrombosis) COVID-19 Lynette's thyroiditis Sacroiliac joint pain Bilateral lumbar radiculopathy Spondylosis of lumbar spine Bilateral hip pain Spondylolisthesis Surgical History Previous back surgery History of hand surgery History of esophagogastroduodenoscopy (EGD) (~10/2023) Hx of umbilical hernia repair Hx of colonoscopy Social History Household Members: Spouse Housing: House Are you a primary career development director to a significant other at home: No Do you presently have visiting nurse or other home services: No Comment: COUNTS CORRECT Patient Tobacco Use Status: Never used Tobacco e-Cigarette/Vaping Use: Never Used Review of Systems Const All systems reviewed & are unremarkable except as noted in HPI and below Physical Exam Vital Signs: Last Vital Signs Pulse 72 05/01/24 12:58 BP 125/85 05/01/24 12:58 Pulse Ox 98 05/01/24 12:58 Oxygen Delivery Method Room Air 05/01/24 12:58 BMI result Body Mass Index 28.2 General: Appears afebrile. Alert and oriented. Mood and affect appropriate. Follows and participates in conversation appropriately. Respiratory effort is unlabored. Able to transition from sit to stand unassisted. Ambulates with bilaterally normal heel strike and toe off. General: Yes no CVA tenderness Back/Spine/Pelvis Other: Midline incision wound-No pathological discharge, no swelling and no erythema. the upper buttock incision is also clean, no erythema, no edema, no local tenderness,the wounds were washed with chloroprep, sutures and eyad were removed, dry sterile dressing was applied . There is bulging fluid collection surrounding intrathecal pain pump. There is no collection of the fluid in subcutaneous tissues where implantation of the intrathecal catheter incision. Back: no CVA tenderness Results Reviewed Results Reviewed: CT lumbar post myelography 04/15/24 CLINICAL INDICATION: CSF fluid leak. COMPARISON: Lumbar spine x-ray 04/09/2024. TECHNIQUE: Axial 3 mm thin and reformatted 2 mm thin sagittal and coronal images of lumbar spine were obtained following insertion of mL of nonionic Omnipaque 300 Neuro contrast through epidural catheter by Dr. Lim. DLP 620 mGy/cm. FINDINGS: On sagittal reconstructed images is maintained lumbar lordosis. There is grade 1 anterolisthesis L5 on S1. Rest of the vertebral alignment is normal. There is loss of disc height virtually at every disc level sparing the L4-5 disc level with ventral and posterior spondylosis. At T12-L1 disc level there is posterior spondylosis/bulge complex with mild spinal canal narrowing. There is mild narrowing of the right neural foramina. At L1-L2 disc level there is posterior spondylosis/bulge complex with moderate canal stenosis there is bilateral moderate narrowing of neural foramina. There is extraspinal catheter entering the intrathecal sac from posterior approach with its tip extending superiorly above the T12 vertebra not in the [id number]. There is a large posterior soft tissue CSF and contrast collection likely punctured or severed catheter. At L2-3 disc level there is posterior spondylosis/bulge complex resulting in moderate concentric canal stenosis. There is bilateral mild facet joint hypertrophy resulting in bilateral neural foraminal narrowing. At L3-4 disc level there is severe spinal canal stenosis from a combination of disc bulge/osteophyte complex and bilateral moderate facet joint hypertrophy. There is bilateral mild to moderate narrowing of neural foramina. At L4-5 disc level there is severe concentric canal stenosis. The neural foramina are bilaterally moderately narrowed. L5-S1 disc level is anterolisthesis with broad-based diffuse pseudodisc bulge resulting in severe spinal canal stenosis. The neural foramina are mildly narrowed bilaterally. Bilateral L5 pars defects are noted. Posterior to L1-L2 disc level there is a large sac consistent with CSF and contrast measuring 6.1 cm in craniocaudad length, 5.5 cm in AP and 3.4 cm wide on sagittal image 33/6 and axial image 40/4. IMPRESSION: Grade 1 anterolisthesis L5-S1 with degenerative disc changes which at every disc level sparing the L4-5 disc level. There is moderate ventral and posterior spondylosis. There is multilevel spinal canal stenosis. There is intrathecal catheter entering the L1-L2 posterior interlaminar space with the tip extending superior to T12 vertebra not in the [id number]. There is a large fluid collection posterior L1-L2 disc level where the catheter appears very irregular and likely perforated resulting in extravasation of CSF and contrast as measured above. This is likely site of CSF leak. Assessment & Plan Assessment & Plan (1) Chronic pain syndrome: Code(s): G89.4 - Chronic pain syndrome Category: Medical (2) Spondylosis of lumbar spine: Code(s): M47.816 - Spondylosis without myelopathy or radiculopathy, lumbar region Category: Medical (3) Presence of intrathecal pump: Code(s): Z97.8 - Presence of other specified devices Category: Medical Plan The dressings are changed today and eyad removed. Everything healed well without any problems no signs of infection. However the collection of the fluid persists in the area of the pain pump. Possibly postoperative seroma however CSF collection can not be excluded. Next time he is here in 1 week I will aspirate the content if persists and send it for beta 2 transferrin study. If positive the pain pump would need to be removed. Patient Instructions: I hereby testify that I spent 34 minutes in conversation with this patient as well as planning his care and organizing this note. Coding Level of Care Code Est Pt Level 4 (28252) Diagnoses Chronic pain syndrome G89.4 Spondylosis of lumbar spine M47.816 Presence of intrathecal pump Z97.8
[2024-05-01 12:58] VITALS: BP 125/85; PULSE 72; O2SAT 98; BMI 28.2
== END 2024-05-01 13:24 | disposition home or self-care (01) ==
LOC: HO.PMC 12:53
PROVIDERS: PCP Family Medicine; Visit Provider Anesthesiology
DX: G89.4 Chronic pain syndrome (principal); M47.816 Spondylosis without myelopathy or radiculopathy, lumbar region; Z97.8 Presence of other specified devices
CPT/HCPCS: 99024

== ENCOUNTER → 2024-05-01 12:52 | Outpatient (BNVA) | payer MEDICARE, MEDICAID, SELFPAY | PROVIDERS: PCP Family Medicine; Visit Provider Anesthesiology | DX: M47.816 Spondylosis without myelopathy or radiculopathy, lumbar region (principal); G89.4 Chronic pain syndrome; Z97.8 Presence of other specified devices | CPT/HCPCS: 99212 ==

== ENCOUNTER 2024-05-07 10:56 | Outpatient (AMB) | payer MEDICARE, MEDICAID, SELFPAY ==
[2024-05-07 11:17] VITALS: BP 130/74; PULSE 75; O2SAT 97; BMI 27.4
--- NOTE | 2024-05-07 11:17 | MHC.OFFVIS ---
Vital Signs 05/07/24 11:17 Height 5 ft 7 in Weight 175 lb BMI 27.4 BP 130/74 Blood Pressure Location Lt brachial Position Sitting Pulse 75 Pulse Source Pulse Oximeter Pulse Oximetry (%) 97 Oxygen Delivery Method Room Air Intake Visit Reasons: ITDD PUMP REFILL Community Development Technician Required: No Allergies oxycodone Adverse Reaction (Severe, Verified 05/07/24 11:18) vertigo sulfamethoxazole [From Bactrim] Adverse Reaction (Severe, Verified 05/07/24 11:18) AFIB trimethoprim [From Bactrim] Adverse Reaction (Severe, Verified 05/07/24 11:18) AFIB Medication List - Last Reconciled 05/07/24 by Sana Pink, HOG OPERATOR acetaminophen 1,000 mg PO Q6H PRN atorvastatin 20 mg PO BEDTIME carbamazepine (Tegretol) 400 mg PO BEDTIME cephalexin 1,000 mg (2 x 500 mg) PO TID 16 days cranberry extract (Cranberry Concentrate) 1,500 mg PO DAILY cyclobenzaprine 10 mg PO BEDTIME PRN 90 days d-mannose 500 mg PO DAILY duloxetine 60 mg PO BEDTIME duloxetine 30 mg PO BEDTIME gabapentin 300 mg PO BEDTIME 90 days levothyroxine 50 mcg PO DAILY metoprolol tartrate 25 mg PO BID naloxone 4 mg/actuation 4 mg intranasal Q2M PRN 1 day naloxone 4 mg/actuation 4 mg intranasal Q2M PRN 1 day pantoprazole 40 mg PO BID topiramate 25 mg PO BID tramadol 50 mg PO Q6H PRN 15 days warfarin 5 mg PO DAILY HPI Comments Details: Carlito is back in my office for sutures and eyad removals and evaluation. The wounds healed completely. No redness no swelling no pathological discharge no tenderness on palpation. I no longer detect any fluid in the projection of the intrathecal pain pump implantation site. There is no ballottement of the device. No tenderness on palpation and no fluid collection under the skin at the spinal incision either. I decided to wait 1 more week and after that I will increase the doses of the pain pump for the patient. At this time he has fentanyl in the pump and it is running on minimal dose. Currently he is taking tramadol to help his pain. I told him to give me a call when he will run out of tramadol I will refill the medication. PRIOR: Carlito developed subcutaneous CSF leak after pain pump implantation. Revision was done on 04/18/2024 where the leak was discovered coming from the laminitomy and catheter insertion site. the duragen and neurosurgical glue were used to close the leak. never-the less expectations were high that the leak would return. Past Procedures: 04/18/2024: revision of the ItDD system 01/18/2024: Implantation of the I DDD with neurosurgical implanted intrathecal catheter via anatomy. 08/10/23: Attempt of ITDD implant-0% pain relief, procedure aborted 05/22/23: ITDD trial with Fentanyl -80% pain relief for 28 hours 04/20/23: Lumbar Nevro SCS trial-30-40% pain relief [facility] Medical History LAU (dyspnea on exertion) ROSS (obstructive sleep apnea) Arthritis Hiatal hernia Anxiety Depression Elevated cholesterol Atrial fibrillation Umbilical hernia Habitual snoring Sleep apnea Self-catheterizes urinary bladder Disorder of sacroiliac joint Lumbar spinal stenosis Thyroid disease GERD (gastroesophageal reflux disease) Cognitive disorder Back pain Bladder atony Osteoarthritis of hips, bilateral Hypothyroidism Hyperlipidemia Bipolar 1 disorder DVT (deep venous thrombosis) COVID-19 Lynette's thyroiditis Sacroiliac joint pain Bilateral lumbar radiculopathy Spondylosis of lumbar spine Bilateral hip pain Spondylolisthesis Surgical History Previous back surgery History of hand surgery History of esophagogastroduodenoscopy (EGD) (~10/2023) Hx of umbilical hernia repair Hx of colonoscopy Social History Household Members: Spouse Housing: House Are you a primary care team coordinator scheduler to a significant other at home: No Do you presently have visiting nurse or other home services: No Comment: COUNTS CORRECT Patient Tobacco Use Status: Never used Tobacco e-Cigarette/Vaping Use: Never Used Review of Systems Const All systems reviewed & are unremarkable except as noted in HPI and below Physical Exam Vital Signs: Last Vital Signs Pulse 75 05/07/24 11:17 BP 130/74 05/07/24 11:17 Pulse Ox 97 05/07/24 11:17 Oxygen Delivery Method Room Air 05/07/24 11:17 BMI result Body Mass Index 27.4 General: Appears afebrile. Alert and oriented. Mood and affect appropriate. Follows and participates in conversation appropriately. Respiratory effort is unlabored. Able to transition from sit to stand unassisted. Ambulates with bilaterally normal heel strike and toe off. General: Yes no CVA tenderness Back/Spine/Pelvis Other: Midline incision wound-No pathological discharge, no swelling and no erythema. the upper buttock incision is also clean, no erythema, no edema, no local tenderness,the wounds were washed with chloroprep, sutures and eyad were removed, dry sterile dressing was applied . There is bulging fluid collection surrounding intrathecal pain pump. There is no collection of the fluid in subcutaneous tissues where implantation of the intrathecal catheter incision. Back: no CVA tenderness Assessment & Plan Assessment & Plan (1) Chronic pain syndrome: Code(s): G89.4 - Chronic pain syndrome Category: Medical (2) Spondylosis of lumbar spine: Code(s): M47.816 - Spondylosis without myelopathy or radiculopathy, lumbar region Category: Medical (3) Presence of intrathecal pump: Code(s): Z97.8 - Presence of other specified devices Category: Medical Plan Appointment in 1 week. I will increase the dose of the fentanyl at that time. We will continue careful observation. He reported itching in the projection of the pain pump before the revision. We will be continuing escalation until patient is comfortable. To temporize his pain over the week time interval I might refill his tramadol prescription. Coding Level of Care Code Est Pt Level 3 (42256) Diagnoses Chronic pain syndrome G89.4 Spondylosis of lumbar spine M47.816 Presence of intrathecal pump Z97.8
== END 2024-05-07 11:17 | disposition home or self-care (01) ==
LOC: HO.PMC 10:57
PROVIDERS: PCP Family Medicine; Visit Provider Anesthesiology
DX: G89.4 Chronic pain syndrome (principal); M47.816 Spondylosis without myelopathy or radiculopathy, lumbar region; Z97.8 Presence of other specified devices
CPT/HCPCS: 99024

== ENCOUNTER → 2024-05-07 10:56 | Outpatient (BNVA) | payer MEDICARE, MEDICAID, SELFPAY | PROVIDERS: PCP Family Medicine; Visit Provider Anesthesiology ==

== ENCOUNTER 2024-05-15 10:37 | Outpatient (AMB) | payer MEDICARE, MEDICAID, SELFPAY ==
--- NOTE | 2024-05-15 10:38 | A.OFFVIS_ITS ---
Vital Signs 05/15/24 10:39 Height 5 ft 7 in Weight 182 lb 4 oz BMI 28.5 BP 161/81 H Blood Pressure Location Rt brachial Position Sitting Pulse 103 H Pulse Source Pulse Oximeter Pulse Oximetry (%) 97 Oxygen Delivery Method Room Air Intake Visit Reasons: pump adjustemnt Allergies oxycodone Adverse Reaction (Severe, Verified 05/15/24 10:39) vertigo sulfamethoxazole [From Bactrim] Adverse Reaction (Severe, Verified 05/15/24 10:39) AFIB trimethoprim [From Bactrim] Adverse Reaction (Severe, Verified 05/15/24 10:39) AFIB HPI Comments Details: Carlito is back in my office for pain pump adjustment. The area of the pain pump was examined today. There is still small amount of fluid in the pain pump pocket. The amount of fluid might not be significant to justify explantation of the pump. I interrogated the pain pump and put it on the simple continuous as well as 1 PTM day mode. See the pain pump procedure interrogation as below. At the same time I instructed the patient to watch after side effects like they were last time when he was applying his PTM. He reported itching and burning sensation in the projection of the pain pump when he was applying PTM. If he would not reports this side effects this time I will invite him for the pain pump refill and I will remove the fluid, we will send this fluid for the betta transferrin study. PRIOR: Carlito developed subcutaneous CSF leak after pain pump implantation. Revision was done on 04/18/2024 where the leak was discovered coming from the laminitomy and catheter insertion site. the duragen and neurosurgical glue were used to close the leak. never-the less expectations were high that the leak would return. Past Procedures: 04/18/2024: revision of the ItDD system 01/18/2024: Implantation of the I DDD with neurosurgical implanted intrathecal catheter via anatomy. 08/10/23: Attempt of ITDD implant-0% pain relief, procedure aborted 05/22/23: ITDD trial with Fentanyl -80% pain relief for 28 hours 04/20/23: Lumbar Nevro SCS trial-30-40% pain relief [facility] Medical History LAU (dyspnea on exertion) ROSS (obstructive sleep apnea) Arthritis Hiatal hernia Anxiety Depression Elevated cholesterol Atrial fibrillation Umbilical hernia Habitual snoring Sleep apnea Self-catheterizes urinary bladder Disorder of sacroiliac joint Lumbar spinal stenosis Thyroid disease GERD (gastroesophageal reflux disease) Cognitive disorder Back pain Bladder atony Osteoarthritis of hips, bilateral Hypothyroidism Hyperlipidemia Bipolar 1 disorder DVT (deep venous thrombosis) COVID-19 Lynette's thyroiditis Sacroiliac joint pain Bilateral lumbar radiculopathy Spondylosis of lumbar spine Bilateral hip pain Spondylolisthesis Surgical History Previous back surgery History of hand surgery History of esophagogastroduodenoscopy (EGD) (~10/2023) Hx of umbilical hernia repair Hx of colonoscopy Social History Household Members: Spouse Housing: House Are you a primary medical care administrator to a significant other at home: No Do you presently have visiting nurse or other home services: No Comment: COUNTS CORRECT Patient Tobacco Use Status: Never used Tobacco e-Cigarette/Vaping Use: Never Used Review of Systems Const All systems reviewed & are unremarkable except as noted in HPI and below Physical Exam Vital Signs: Last Vital Signs Pulse 103 H 05/15/24 10:39 BP 161/81 H 05/15/24 10:39 Pulse Ox 97 05/15/24 10:39 Oxygen Delivery Method Room Air 05/15/24 10:39 BMI result Body Mass Index 28.5 General: Appears afebrile. Alert and oriented. Mood and affect appropriate. Follows and participates in conversation appropriately. Respiratory effort is unlabored. Able to transition from sit to stand unassisted. Ambulates with bilaterally normal heel strike and toe off. General: Yes no CVA tenderness Back/Spine/Pelvis Other: Midline incision wound-No pathological discharge, no swelling and no erythema. the upper buttock incision is also clean, no erythema, no edema, no local tenderness,the wounds were washed with chloroprep, sutures and eyad were removed, dry sterile dressing was applied . There is bulging fluid collection surrounding intrathecal pain pump. There is no collection of the fluid in subcutaneous tissues where implantation of the intrathecal catheter incision. Back: no CVA tenderness Assessment & Plan Assessment & Plan (1) Chronic pain syndrome: Code(s): G89.4 - Chronic pain syndrome Category: Medical (2) Spondylosis of lumbar spine: Code(s): M47.816 - Spondylosis without myelopathy or radiculopathy, lumbar region Category: Medical (3) Presence of intrathecal pump: Code(s): Z97.8 - Presence of other specified devices Category: Medical Plan: Office procedure pain pump interrogation and adjustment. The pain pump was interrogated it contain 17.5 mL of fentanyl 60 micro g per mL fluid. He was on minimal rate receiving 0.411 micro g of fentanyl per day. Today the doses were changed to 2.883 micro g a day of the fentanyl and I also gave him 1 dose of PTM 15 micro g 1 a day over the 15 minutes lockout 23 hours 30 minutes. Plan I increase the dose of the fentanyl at that time. We will continue careful observation. I asked him to watch for side effects as they were last time. See discussion as above. Patient Instructions: I here by testify that I spent 39 minutes in conversation with this patient as well as planning his care and organizing this note. Coding Level of Care Code Est Pt Level 4 (49557) Procedure Only Diagnoses Chronic pain syndrome G89.4 Spondylosis of lumbar spine M47.816 Presence of intrathecal pump Z97.8
[2024-05-15 10:39] VITALS: BP 161/81; PULSE 103; O2SAT 97; BMI 28.5
--- OUTSIDE RECORDS SUMMARY | 2024-05-15 11:47 | XMS_ITS | Clinical Summary ---
Author Organization [facility] Address [address] [place] [address] Care Team Providers Care Certified Health Education Specialist Name Role Phone Bonilla Grant MD Primary Care Provider [phone] Allergies Active Allergy Reactions Criticality Noted Date [...] EST - 02/28/2024 8:20 PM EST Surgery [facility] Heart & Vascular [place] [facility] - Cardiac Catheterization Laboratory [address] [place] [phone] Jerry Plata MD ARTERIOGRAPHY PULMONARY SELECT-BILAT 02/28/2024 4:25 PM EST Ancillary Procedure [facility] Radiology [address] [place] [phone] Provider, File Room 02/28/2024 4:20 PM EST Ancillary Procedure [facility] Radiology [address] [place] [phone] Provider, File Room 02/28/2024 4:20 PM EST Ancillary Procedure [facility] Radiology [address] [place] [phone] Provider, File Room 02/28/2024 3:53 PM EST - 03/04/2024 5:12 PM EST Hospital Encounter [facility] [address] [place] [phone] Sotero Headley MD Schreyer, Evan K, MD Pokhrel, Kamal, MD Shah, Nirali, MD Pulmonary embolism (HCC) (Primary Dx); Acute saddle pulmonary embolism without acute cor pulmonale (HCC) Discharge Disposition: Home or Self Care 02/28/2024 Travel from Last 3 Months Social History Tobacco Use Types Packs/Day Years Used Date Smoking Tobacco: Never Passive Smoke Exposure: Never Smokeless Tobacco: Never [facility] Utilities Answer Date Recorded In the [...] any time in the past 12 m [facility], were you homeless or living in [...] 65 - 99 mg/dL 03/04/2024 2:38 PM [facility] Comment:Fasting: <100 mg/dL, Non-Fasting: <200 mg/dL (ADA 2005) Blood Urea Nitrogen (BUN) 16 8 - 21 mg/dL 03/04/2024 2:38 PM [facility] Creatinine 1.3 0.5 - 1.3 mg/dL 03/04/2024 2:38 PM [facility] eGFR 61 >59 03/04/2024 2:38 PM [facility] Comment:CKD-EPI (2020) in mL /min/1.73 sq meters. Sodium 140 136 - 145 mmol/L 03/04/2024 2:38 PM [facility] Potassium 4.6 3.4 - 5.3 mmol/L 03/04/2024 2:38 PM [facility] Chloride 102 98 - 107 mmol/L 03/04/2024 2:38 PM [facility] CO2 25 22 - 33 mmol/L 03/04/2024 2:38 PM [facility] Anion Gap 13 7 - 17 03/04/2024 2:38 PM [facility] Calcium 9.1 8.7 - 10.5 mg/dL 03/04/2024 2:38 PM [facility] BUN/Creatinine Ratio 12 10.0 - 25.0 Ratio 03/04/2024 2:38 PM [facility] Blood (Plasma/Serum) 03/04/2024 12:51 PM EST 03/04/2024 2:01 PM EST Mariah Messer MD [place] [address], [place] [address] * (ABNORMAL) proBNP, N-terminal (03/04/2024 5:56 AM EST) Only the most recent of2 resultswithin the time period is included. [facility] proBNP, N-terminal 296(H) <125 pg/mL 03/04/2024 9:02 AM EST [facility] Plasma specimen / Unknown 03/04/2024 5:56 AM EST 03/04/2024 6:30 AM EST Mariah Messer MD LAB BLOOD ORDERABLES Performing Organization Address City/[facility] [place] [address], [place] [address] * (ABNORMAL) Protime-INR (03/04/2024 5:56 AM EST) Only the most recent of6 resultswithin the time period is included. [facility] Anticoagulant WARFARIN (COUMADIN) 03/03/2024 11:00 PM EST Prothrombin Time (PT) 27.7(H) 10.0 - 13.5 seconds 03/04/2024 6:43 AM [facility] INR 2.4 03/04/2024 6:43 AM [facility] Comment:INR Therapeutic Rang es: Standard dose anticoagulant 2.0 to 3.0, High dose anticoagulant 2.5-3.5. Blood Plasma specimen / Unknown 03/04/2024 5:56 AM EST 03/04/2024 6:31 AM EST Mariah Messer MD LAB BLOOD ORDERABLES Performing Organization Address City/[facility] [place] [address], [place] [address] * (ABNORMAL) Complete Blood Count, WITHOUT Differential (routine) (03/04/2024 5:56 AM EST) Only the most recent of6 resultswithin the time period is included. [facility] White Blood Cell Count 5.8 4.0 - 11.0 Thou/uL 03/04/2024 6:35 AM [facility] Platelet Count 153 150 - 450 Thou/uL 03/04/2024 6:35 AM [facility] Hemoglobin 12.1(L) 13.0 - 17.7 g/dL 03/04/2024 6:35 AM [facility] Hematocrit 37.1(L) 39.0 - 54.0 % 03/04/2024 6:35 AM [facility] Red Blood Cell Count 3.82(L) 4.50 - 6.20 Mil/uL 03/04/2024 6:35 AM [facility] MCV 97 80 - 100 fL 03/04/2024 6:35 AM [facility] MCH 31.7(H) 27.0 - 31.0 pg 03/04/2024 6:35 AM [facility] MCHC 32.6 30.0 - 36.0 g/dL 03/04/2024 6:35 AM [facility] RDW 13.2 11.5 - 14.5 % 03/04/2024 6:35 AM [facility] MPV 10.4 7.5 - 12.5 fL 03/04/2024 6:35 AM [facility] Blood Blood specimen / Unknown 03/04/2024 5:56 AM EST 03/04/2024 6:30 AM EST Mariah Messer MD LAB BLOOD ORDERABLES Performing Organization Address City/[facility]/[place] [address], [place] [address] * Phosphorus (Routine) (03/04/2024 5:56 AM EST) Only the most recent of6 resultswithin the time period is included. Phosphorus 3.1 2.7 - 4.5 mg/dL 03/04/2024 7:02 AM [facility] Blood (Plasma/Serum) 03/04/2024 5:56 AM EST 03/04/2024 6:30 AM EST Mariah Messer MD LAB BLOOD ORDERABLES Performing Organization Address City/[facility]/[place] [address], [place] [address] * Magnesium (Routine) (03/04/2024 5:56 AM EST) Only the most recent of7 resultswithin the time period is included. Magnesium 2.0 1.6 - 2.7 mg/dL 03/04/2024 7:02 AM EST [facility] Blood (Plasma/Serum) 03/04/2024 5:56 AM EST 03/04/2024 6:30 AM EST Mariah Messer MD LAB BLOOD ORDERABLES Performing Organization Address City/State/[facility] Co de Phone Number [address] [address], [address] [address] * ECHOCARDIOGRAM COMPREHENSIVE (03/01/2024 2:41 PM EST) [...] ?? Department: [facility] Vascular Lab Patient: [id number] (KAREN GORDON) ?? Patient Location: ..[address] CPT Code: 44753 ICD-9: ?? Referring Physician: EVA MILLER Impression [...] 03/01/2024 Department: [facility] Vascular Lab Patient: [id number] (EVAN KAREN) Patient Location: [address] CPT Code: 28668 ICD-9: Referring Physician: EVA MILLER Impression Critical [...] T 211(HH) <23 ng/L 02/29/2024 2:45 AM [facility] Comment:Recurring Critical R esult. Previously phoned. Delta (Change) 53(H) <3 02/29/2024 2:45 AM [facility] Comment:Decreased Blood (Plasma/Serum) 02/29/2024 1:29 AM EST 02/29/2024 1:42 AM EST Eva Miller APRN LAB BLOOD ORDERABLE S Performing Organization Address [facility]/[place] [address], [place] [address] * Lactic Acid, Plasma (Routine) (02/29/2024 1:29 AM EST) Only the most recent of3 resultswithin the time period is included. Lactic Acid 1.7 0.5 - 1.9 mmol/L 02/29/2024 2:19 AM EST [facility] Blood Plasma specimen / Unknown 02/29/2024 1:29 AM EST 02/29/2024 1:42 AM EST Eva Miller APRN [place] [address], [place] [address] * (ABNORMAL) Partial Thromboplastin Time (PTT) (02/28/2024 9:13 PM EST) Anticoagulant OTHER AGENT OR UNKNOWN 02/28/2024 9:14 PM EST Partial Thromboplastin Time (PTT) 60(H) 25 - 36 seconds 02/28/2024 10:03 PM EST [facility] Blood Plasma specimen / Unknown 02/28/2024 9:13 PM EST 02/28/2024 9:45 PM EST Eva Miller APRN LAB BLOOD ORDERABLE S Performing Organization Address City/[facility] [place] [address], [place] [address] * ECG 12 lead (02/28/2024 8:52 PM EST) Only the most recent of2 resultswithin the time period is included. Systolic BP 122 mmHg EKG [facility] Diastolic BP 74 mmHg EKG [facility] Ventricular rate 98 BPM EKG [facility] Atrial rate 98 BPM EKG [facility] P-R interval 174 ms EKG [facility] QRS duration 88 ms EKG [facility] Q-T interval 366 ms EKG [facility] QTC calculation (Bazett) 467 ms EKG [facility] P axis 57 degrees EKG [facility] R axis 108 degrees EKG [facility] T axis 51 degrees EKG [facility] 02/28/2024 8:52 PM EST Narrative EKG [facility] - 02/29/2024 6:56 AM EST Normal [...] Whitaker MD ECG ORDERABLES Performing Organization Address City/[facility]/ZIP Co de Phone Number EKG [facility] * (ABNORMAL) POCT Glucose, Fingerstick (02/28/2024 [...] from the original result were not included. [facility] Heart & Vascular [place] [facility] - Cardiac Catheterization Laboratory [facility] Heart & Vascular [place] [facility] - Cardiac Catheterization Laboratory PATIENT DEMOGRAPHIC INFORMATION Name: Karen Gordon : 1955 68 y.o. Sex: male Gender: male Procedure Date: 02/28/2024 PROCEDURE DETAILS [employer] Band Teacher: Jerry Plata MD Fellow: MD Alla Gallegos MD Omar Yacob, MBBS Study Director(s): none Indications for Procedure: Pulmonary embolism ?? [...] L/min/kg2 QS = 2.76 Tracings available in [employer] log report CLINICAL HISTORY 64-year-old male presents to the hospital shortness of breath found to have intermediate risk pulmonary embolism with risk enhancing features. PROCEDURE Informed consent was obtained; a procedural timeout was performed; the patient was prepped and draped in sterile fashion; Access: Right femoral vein Sheath: 24F Belgian Under ultrasound guidance the right femoral vein was accessed with a 7F sheath. The vein was preclosed. A right heart catheterization was performed with a [place] Ritchie Catheter. A pigtail was used to [...] this patient that I request from a [facility] PA/CARRIER OPERATOR/fellow/staff member. Jerry Plata MD [facility] Heart & Vascular [place] 02/28/2024 ??7:34 PM Cardiac Protocol pulmonary hypertension [...] atypical angina PCI Indication: other. Indications for Telemetry Registered Nurse Visit: other indications Jerry Plata MD CV ENDOVASCULAR OR DERABLES * CC RIGHT HEART CATH, CORONARY ANGIOGRAM, CC THROMBECTOMY (02/28/2024 7:21 PM EST) Anatomical Region Laterality Modality Radiographic Evelyn ging Narrative 02/28/2024 7:59 PM EST Table formatting from the original result was not included. Images from the original result were not included. [facility] Heart & Vascular [place] [facility] - Cardiac Catheterization Laboratory [facility] Heart & Vascular [place] [facility] - Cardiac Catheterization Laboratory PATIENT DEMOGRAPHIC INFORMATION Name: Karen Gordon : 1955 68 y.o. Sex: male Gender: male Procedure Date: 02/28/2024 PROCEDURE DETAILS [employer] Teacher: Jerry Plata MD Fellow: MD Alla Gallegos MD Omar Yacob, MBBS Study Director(s): none Indications for Procedure: Pulmonary embolism ?? [...] L/min/kg2 QS = 2.76 Tracings available in [employer] log report CLINICAL HISTORY 64-year-old male presents to the hospital shortness of breath found to have intermediate risk pulmonary embolism with risk enhancing features. PROCEDURE Informed consent was obtained; a procedural timeout was performed; the patient was prepped and draped in sterile fashion; Access: Right femoral vein Sheath: 24F Belgian Under ultrasound guidance the right femoral vein was accessed with a 7F sheath. The vein was preclosed. A right heart catheterization was performed with a [place] Ritchie Catheter. A pigtail was used to [...] this patient that I request from a [facility] PA/YUNIEL/fellow/staff member. Jerry Plata MD [facility] Heart & Vascular [place] 02/28/2024 ??7:34 PM Cardiac Protocol pulmonary hypertension [...] atypical angina PCI Indication: other. Indications for Telemetry Registered Nurse Visit: other indications Jerry Plata MD CV CARDIAC CATH OR DERABLES * (ABNORMAL) POCT O2 Saturation (AVOX) (02/28/2024 7:13 PM EST) Only the most recent of2 resultswithin the time period is included. CARMINE 48(A) 60 - 75 % Lot Number [id number] Supervisor [employer] [place] Blood 02/28/2024 7:13 PM EST [...] 4.0 - 11.0 Thou/uL 02/28/2024 4:36 PM [facility] Platelet Count 144(L) 150 - 450 Thou/uL 02/28/2024 4:36 PM [facility] Hemoglobin 13.6 13.0 - 17.7 g/dL 02/28/2024 4:36 PM [facility] Hematocrit 41.7 39.0 - 54.0 % 02/28/2024 4:36 PM [facility] Red Blood Cell Count 4.32(L) 4.50 - 6.20 Mil/uL 02/28/2024 4:36 PM [facility] MCV 97 80 - 100 fL 02/28/2024 4:36 PM [facility] MCH 31.5(H) 27.0 - 31.0 pg 02/28/2024 4:36 PM [facility] MCHC 32.6 30.0 - 36.0 g/dL 02/28/2024 4:36 PM [facility] RDW 13.2 11.5 - 14.5 % 02/28/2024 4:36 PM [facility] MPV 9.8 7.5 - 12.5 fL 02/28/2024 4:36 PM [facility] Neutrophils Auto 76.5 % 02/27/19 25 4:36 PM [facility] Immature Granulocytes 1.8 % 02/28/2024 4:36 PM [facility] Lymphocytes Auto 14.7 % 02/27/19 4:36 PM [facility] Monocytes Auto 6.3 % 02/28/2024 4:36 PM [facility] Eosinophils Auto 0.5 % 02/27/19 4:36 PM [facility] Basophils Auto 0.2 % 02/28/2024 4:36 PM [facility] Abs Neutrophils Auto 9.60(H) 2.00 - 7.50 Thou/uL 02/28/2024 4:36 PM [facility] Abs Immature Granulocytes 0.22(H) 0.00 - 0.10 Thou/uL 02/28/2024 4:36 PM [facility] Abs Lymphocytes Auto 1.84 1.50 - 4.50 Thou/uL 02/28/2024 4:36 PM [facility] Abs Monocytes Auto 0.79 0.20 - 1.50 Thou/uL 02/28/2024 4:36 PM [facility] Abs Eosinophils Auto 0.06 0.00 - 0.70 Thou/uL 02/28/2024 4:36 PM [facility] Abs Basophils Auto 0.02 0.00 - 0.20 Thou/uL 02/28/2024 4:36 PM [facility] Blood Blood specimen / Unknown 02/28/2024 4:08 PM EST 02/28/2024 4:26 PM EST Sotero Headley MD [place] [address], [place] [address] * (ABNORMAL) Hepatic Function Panel (02/28/2024 4:08 PM EST) Alkaline Phosphatase 134(H) 45 - 128 U/L 02/28/2024 4:58 PM [facility] Aspartate Aminotrans (AST) 28 10 - 55 U/L 02/28/2024 4:58 PM [facility] Alanine Aminotrans (ALT) 30 10 - 55 U/L 02/28/2024 4:58 PM [facility] Bilirubin, Total 0.3 0.2 - 1.0 mg/dL 02/28/2024 4:58 PM [facility] Protein, Total 7.5 6.3 - 8.3 g/dL 02/28/2024 4:58 PM [facility] Albumin 3.9 3.4 - 4.8 g/dL 02/28/2024 4:58 PM [facility] Bilirubin, Direct <0.1 0 - 0.2 mg/dL 02/28/2024 4:58 PM [facility] Globulin 3.6 1.5 - 3.9 g/dL 02/28/2024 4:58 PM [facility] Albumin/Globulin Ratio 1.1 1.0 - 3.0 Ratio 02/28/2024 4:58 PM [facility] Blood (Plasma/Serum) 02/28/2024 4:08 PM EST 02/28/2024 4:26 PM EST Sotero Headley MD LAB BLOOD ORDERABLES Performing Organization Address City/State/[facility] Co de Phone Number [address] [address], [facility] [address] [place] [address] from Last 3 Months Advance Directives * Full Code (Latest Code Status on File) Date Activated Date Inactivated Comments 02/28/2024 8:48 PM * Full Code Date Activated Date Inactivated Comments 02/28/2024 7:40 PM 02/28/2024 8:48 PM Care Teams Certified Health Education Specialist Relationship Specialty Start Date End Date Bonilla Grant MD [address] [place] [address] PCP - General Psychiatry, General 02/28/24
--- OUTSIDE RECORDS SUMMARY | 2024-05-15 11:47 | XMS_ITS | Clinical Summary ---
Author Organization [facility] Address [address] [place] [address] Phone Care Team Providers Care Mobile Equipment Mechanic Name Role Phone Bonilla Grant DO Primary Care Provider [phone] Allergies Active Allergy Reactions Criticality Noted Date Comments Sulfamethoxazole-Trimethopr im 04/07/2024 Other 11/05/2020 Bactrim [Na Benzoate-sulfamethoxazole -trimethoprim Oxycontin [Indigotine-oxycodone Hcl] Oxycodone 11/05/2020 Medications acetaminophen (TYLENOL 8 HOUR ORAL) Take by mouth. Active ascorbic acid (VITAMIN C) 500 mg tablet Take 500 mg by mouth daily. Active cholecalciferol , vitamin D3, (VITAMIN D3 ORAL) Take by [...] (300 mg total) by mouth daily. 07/16/2023 Active atorvastatin (LIPITOR) 20 mg tablet Take 1 tablet (20 mg total) by mouth daily. 12/07/2023 Active metoprolol tartrate (LOPRESSOR) 25 mg tablet 03/24/2024 Active topiramate (TOPAMAX) 25 mg tablet Take 1 tablet (25 mg total) by mouth 2 times daily. 07/31/2023 Active warfarin (COUMADIN) 5 mg tablet Take 1 tablet (5 mg total) by mouth. 03/04/2024 Active Encounters Date Type Department Care Team Description 04/07/2024 1:00 PM EST Office Visit [facility] Hematology Oncology [address] [place] [phone] Ranjana Sandoval MD Acute saddle pulmonary embolism without acute cor pulmonale (CMS/HCC); Acute deep vein thrombosis (DVT) of popliteal vein of right lower extremity (CMS/HCC) from Last 3 Months Medical History Medical History Date Comments DVT, lower extremity Bipolar 1 disorder (CMS/HCC) Hyperlipidemia Hypothyroidism Lumbar spinal stenosis GI disease Pulmonary emboli Umbilical hernia Family History Medical History Relation [...] Description 06/17/2024 1:15 PM EDT Office Visit [facility] Hematology Oncology [address] [place] [phone] Ranjana Sandoval MD [address] [place] [address] Health Maintenance Due Date Last Done Comments Pneumococcal Vaccine: 50+ Years (1 of 1 - PCV) 04/24/2007 RSV Immunization Adult Patients (1 - Risk 60-74 years 1-dose series) [...] CBC auto differential (04/07/2024 1:57 PM EST) [facility] WBC 5.4 4.8 - 10.8 K/mcL LAB HEMETOLOGY METHOD 04/07/2024 4:48 PM [facility] RBC 4.10(L) 4.50 - 5.50 M/mcL LAB HEMETOLOGY METHOD 04/07/2024 4:48 PM [facility] Hemoglobin 12.6(L) 13.5 - 17.5 g/dL LAB HEMETOLOGY METHOD 04/07/2024 4:48 PM [facility] Hematocrit 39.4(L) 42.0 - 54.0 % LAB HEMETOLOGY METHOD 04/07/2024 4:48 PM [facility] MCV 96.1 79.0 - 98.0 FL LAB HEMETOLOGY METHOD 04/07/2024 4:48 PM [facility] MCH 30.7 27.0 - 32.0 pcg LAB HEMETOLOGY METHOD 04/07/2024 4:48 PM [facility] MCHC 32.0 32.0 - 37.0 g/dL LAB HEMETOLOGY METHOD 04/07/2024 4:48 PM [facility] RDW 13.2 11.0 - 15.0 % LAB HEMETOLOGY METHOD 04/07/2024 4:48 PM [facility] Platelets 181 130 - 400 K/mcL LAB HEMETOLOGY METHOD 04/07/2024 4:48 PM [facility] MPV 10.0 7.0 - 11.0 FL LAB HEMETOLOGY METHOD 04/07/2024 4:48 PM [facility] NRBC 0.0 <1.0 % LAB HEMETOLOGY METHOD 04/07/2024 4:48 PM [facility] NRBC Absolute 0.00 <0.10 K/mcL LAB HEMETOLOGY METHOD 04/07/2024 4:48 PM [facility] Neutrophils Relative 51.4 % LAB HEMETOLOGY METHOD 04/07/2024 4:48 PM [facility] Lymphocytes Relative 31.6 % LAB HEMETOLOGY METHOD 04/07/2024 4:48 PM [facility] Monocytes Relative 9.6 % LAB HEMETOLOGY METHOD 04/07/2024 4:48 PM [facility] Eosinophils Relative 6.8 % LAB HEMETOLOGY METHOD 04/07/2024 4:48 PM [facility] Basophils Relative 0.4 % LAB HEMETOLOGY METHOD 04/07/2024 4:48 PM [facility] Immature Granulocytes Relative 0.2 % LAB HEMETOLOGY METHOD 04/07/2024 4:48 PM [facility] Neutrophils Absolute 2.80 1.50 - 7.00 K/mcL LAB HEMETOLOGY METHOD 04/07/2024 4:48 PM [facility] Lymphocytes Absolute 1.72 1.00 - 5.00 K/mcL LAB HEMETOLOGY METHOD 04/07/2024 4:48 PM EST [facility] Monocytes Absolute 0.52 0.20 - 1.00 K/mcL LAB HEMETOLOGY METHOD 04/07/2024 4:48 PM EST [facility] Eosinophils Absolute 0.37 0.00 - 0.50 K/mcL LAB HEMETOLOGY METHOD 04/07/2024 4:48 PM EST [facility] Basophils Absolute 0.02 0.00 - 0.20 K/mcL LAB HEMETOLOGY METHOD 04/07/2024 4:48 PM EST [facility] Immature Granulocytes Absolute 0.01 0.00 - 0.03 K/[facility] LAB HEMETOLOGY METHOD 04/07/2024 4:48 PM EST [facility] Blood Venous blood specimen / Unknown Venipuncture / Unknown 04/07/2024 1:57 PM EST 04/07/2024 4:36 PM EST Ranjana Sandoval MD LAB BLOOD ORDERABLES Final R esult [facility] [address] [place] [address], * (ABNORMAL) Lupus anticoagulant with reflex to mixing studies (04/07/2024 1:57 PM EST) APTT 60(H) <43 Sec(s) 04/10/2024 12:56 PM EST [facility] aPTT Mix 1:1 38 <43 Sec(s) 04/10/2024 12:56 PM EST [facility] Hexagonal Phase Neutralization NA 04/10/2024 12:56 PM EST [facility] Dilute Cruz Viper Venom 57(H) <44 Sec(s) 04/10/2024 12:56 PM EST [facility] DRVVT 1:1 Mix 36 <44 Sec(s) 04/10/2024 12:56 PM EST [facility] DRVVT Confirmation NA 2024 12:56 PM EST [facility] Interpretation SEE BELOW 04/10/2024 12:56 PM EST [facility] Comment: Lupus anticoagulant not detected. Test performed at [facility], [address] , [place], [place] ??[address] ? [phone] Charlene Harding MD, PhD - Cash Clerk Blood Venous blood specimen / Unknown Venipuncture / Unknown 04/07/2024 1:57 PM EST 04/07/2024 4:35 PM EST Ranjana Sandoval MD LAB BLOOD ORDERABLES Final R esult [facility] [address] [place] [address] * Cardiolipin antibody (04/07/2024 1:57 PM EST) [facility] Cardiolipin Antibody Screen Negative Negative LAB CHEMISTRY METHOD 04/08/2024 9:39 AM EST [facility] Blood Venous blood specimen / Unknown Venipuncture / Unknown 04/07/2024 1:57 PM EST 04/07/2024 4:36 PM EST Ranjana Sandoval MD LAB BLOOD ORDERABLES Final R esult [facility] [address] [place] [address], [place] [phone] * Colonoscopy (03/02/2021) Pathologist [facility] Colonoscopy no interpretation abstracted Anatomical Region Laterality Modality Other Historical Provider HEALTH MAINTENANCE Final Result from Last 3 Months or Most Recently Relevant to Health Maintenance Insurance [place] MEDICARE AD[place]ANTAGE [place] Care Teams Mobile Equipment Mechanic Relationship Specialty Start Date End Date Bonilla Grant DO [address] [place] [address] PCP - General Family Medicine 03/10/24
== END 2024-05-15 10:59 | disposition home or self-care (01) ==
LOC: HO.PMC 10:37
PROVIDERS: PCP Family Medicine; Visit Provider Anesthesiology
DX: G89.4 Chronic pain syndrome (principal); M47.816 Spondylosis without myelopathy or radiculopathy, lumbar region; Z97.8 Presence of other specified devices; Z45.1 Encounter for adjustment and management of infusion pump
CPT/HCPCS: 62367; 99214

== ENCOUNTER → 2024-05-15 10:37 | Outpatient (BNVA) | payer MEDICARE, MEDICAID, SELFPAY | PROVIDERS: PCP Family Medicine; Visit Provider Anesthesiology | DX: M47.816 Spondylosis without myelopathy or radiculopathy, lumbar region (principal); G89.4 Chronic pain syndrome; Z45.1 Encounter for adjustment and management of infusion pump; Z79.899 Other long term (current) drug therapy | CPT/HCPCS: 62367; 99212 ==

== ENCOUNTER 2024-05-22 15:07 | Outpatient (AMB) | payer MEDICARE, MEDICAID, SELFPAY ==
[2024-05-22 15:24] VITALS: BP 139/80; PULSE 73; O2SAT 99; BMI 28.5
--- NOTE | 2024-05-22 15:24 | MHC.OFFVIS ---
Vital Signs 05/22/24 15:24 Height 5 ft 7 in Weight 182 lb 4 oz BMI 28.5 BP 139/80 Blood Pressure Location Rt brachial Position Sitting Pulse 73 Pulse Source Pulse Oximeter Pulse Oximetry (%) 99 Oxygen Delivery Method Room Air Intake Visit Reasons: FU if patient has reaction Allergies oxycodone Adverse Reaction (Severe, Verified 05/22/24 15:24) vertigo sulfamethoxazole [From Bactrim] Adverse Reaction (Severe, Verified 05/22/24 15:24) AFIB trimethoprim [From Bactrim] Adverse Reaction (Severe, Verified 05/22/24 15:24) AFIB HPI Comments Details: Carlito is back in my office with repeated complains on itching all over the body with administration of the PTM fentanyl dose. She also complains on swelling in the projection of the midline incision as well as left upper buttock incision. Very likely it is the return of the CSF leak. The patient does not experience any other symptoms which would include severe positional headache, blurred vision, unsteady gait etc.. We discussed the situation with the patient today. It looks like that this pump needs to be removed. Alternatively because the patient is mostly asymptomatic with only fluid collection under the skin we can fill up the pump with the normal saline and exclude the action of the opioids while putting pump on minimal rate. To control his pain I will admit him to our oral chronic opioid program. I will consider buprenorphine/Belbuca to help this patient with his pain. PRIOR: Carlito developed subcutaneous CSF leak after pain pump implantation. Revision was done on 04/18/2024 where the leak was discovered coming from the laminitomy and catheter insertion site. the duragen and neurosurgical glue were used to close the leak. never-the less expectations were high that the leak would return. Past Procedures: 04/18/2024: revision of the ItDD system 01/18/2024: Implantation of the I DDD with neurosurgical implanted intrathecal catheter via anatomy. 08/10/23: Attempt of ITDD implant-0% pain relief, procedure aborted 05/22/23: ITDD trial with Fentanyl -80% pain relief for 28 hours 04/20/23: Lumbar Nevro SCS trial-30-40% pain relief [facility] Medical History LAU (dyspnea on exertion) ROSS (obstructive sleep apnea) Arthritis Hiatal hernia Anxiety Depression Elevated cholesterol Atrial fibrillation Umbilical hernia Habitual snoring Sleep apnea Self-catheterizes urinary bladder Disorder of sacroiliac joint Lumbar spinal stenosis Thyroid disease GERD (gastroesophageal reflux disease) Cognitive disorder Back pain Bladder atony Osteoarthritis of hips, bilateral Hypothyroidism Hyperlipidemia Bipolar 1 disorder DVT (deep venous thrombosis) COVID-19 Lynette's thyroiditis Sacroiliac joint pain Bilateral lumbar radiculopathy Spondylosis of lumbar spine Bilateral hip pain Spondylolisthesis Surgical History Previous back surgery History of hand surgery History of esophagogastroduodenoscopy (EGD) (~10/2023) Hx of umbilical hernia repair Hx of colonoscopy Social History Household Members: Spouse Housing: House Are you a primary care coordination manager to a significant other at home: No Do you presently have visiting nurse or other home services: No Comment: COUNTS CORRECT Patient Tobacco Use Status: Never used Tobacco e-Cigarette/Vaping Use: Never Used Review of Systems Const All systems reviewed & are unremarkable except as noted in HPI and below Physical Exam Vital Signs: Last Vital Signs Pulse 73 05/22/24 15:24 BP 139/80 05/22/24 15:24 Pulse Ox 99 05/22/24 15:24 Oxygen Delivery Method Room Air 05/22/24 15:24 BMI result Body Mass Index 28.5 General: Appears afebrile. Alert and oriented. Mood and affect appropriate. Follows and participates in conversation appropriately. Respiratory effort is unlabored. Able to transition from sit to stand unassisted. Ambulates with bilaterally normal heel strike and toe off. General: Yes no CVA tenderness Back/Spine/Pelvis Other: Midline incision wound-No pathological discharge, no swelling and no erythema. the upper buttock incision is also clean, no erythema, no edema, no local tenderness, however deep under the skin both of the incisions exhibits signs of ballottement of the fluid. Back: no CVA tenderness Assessment & Plan Assessment & Plan (1) Chronic pain syndrome: Code(s): G89.4 - Chronic pain syndrome Category: Medical (2) Spondylosis of lumbar spine: Code(s): M47.816 - Spondylosis without myelopathy or radiculopathy, lumbar region Category: Medical (3) Presence of intrathecal pump: Code(s): Z97.8 - Presence of other specified devices Category: Medical Plan Currently the patient exhibits only 1 sign of CSF leak: Bulging of the fluid under both of the incisions. Treatment options: 1. Operative removal of the pain pump with the repair of the CSF leak at the site of the insertion. 2. Remove the CSF from the pain pump pocket via needle stick drainage, fill up the pain pump with normal saline, continue normal saline at minimal rate. The patient will wear the abdominal binder for at least a year compressing both lumbar incision site as well as upper left buttock side. Patient exhibits no symptoms of CSF leak but fluid collection under the skin. In both cases patient will be admitted to our chronic opioid program. We will try to treat his pain with buprenorphine. Coding Level of Care Code Est Pt Level 3 (49081) Diagnoses Chronic pain syndrome G89.4 Spondylosis of lumbar spine M47.816 Presence of intrathecal pump Z97.8
--- OUTSIDE RECORDS SUMMARY | 2024-05-22 17:35 | XMS_ITS | Clinical Summary ---
Author Organization [facility] Address [address] [place] [address] Care Team Providers Care Computerized Mill Mill Recorder Name Role Phone Bonilla Grant MD Primary Care Provider Allergies Active Allergy Reactions Criticality Noted Date [...] EST - 02/28/2024 8:20 PM EST Surgery [facility] Heart & Vascular [place] [facility] - Cardiac Catheterization Laboratory [address] [place] [phone] Jerry Plata MD ARTERIOGRAPHY PULMONARY SELECT-BILAT 02/28/2024 4:25 PM EST Ancillary Procedure [facility] Radiology [address] [place] [phone] Provider, File Room 02/28/2024 4:20 PM EST Ancillary Procedure [facility] Radiology [address] [place] [phone] Provider, File Room 02/28/2024 4:20 PM EST Ancillary Procedure [facility] Radiology [address] [place] [phone] Provider, File Room 02/28/2024 3:53 PM EST - 03/04/2024 5:12 PM EST Hospital Encounter [facility] [address] [place] [phone] Sotero Headley MD Schreyer, Evan K, MD Pokhrel, Kamal, MD Shah, Nirali, MD Pulmonary embolism (HCC) (Primary Dx); Acute saddle pulmonary embolism without acute cor pulmonale (HCC) Discharge Disposition: Home or Self Care 02/28/2024 Travel from Last 3 Months Social History Tobacco Use Types Packs/Day Years Used Date Smoking Tobacco: Never Passive Smoke Exposure: Never Smokeless Tobacco: Never [facility] Utilities Answer Date Recorded In the past [...] any time in the past [facility], were you homeless or living in a nursing home (including now)? No 02/29/2024 Sex and Gender [...] 65 - 99 mg/dL 03/04/2024 2:38 PM [facility] Comment:Fasting: <100 mg/dL, Non-Fasting: <200 mg/dL (ADA 2005) Blood Urea Nitrogen (BUN) 16 8 - 21 mg/dL 03/04/2024 2:38 PM [facility] Creatinine 1.3 0.5 - 1.3 mg/dL 03/04/2024 2:38 PM [facility] eGFR 61 >59 03/04/2024 2:38 PM [facility] Comment:CKD-EPI (2020) in mL /min/1.73 sq meters. Sodium 140 136 - 145 mmol/L 03/04/2024 2:38 PM [facility] Potassium 4.6 3.4 - 5.3 mmol/L 03/04/2024 2:38 PM [facility] Chloride 102 98 - 107 mmol/L 03/04/2024 2:38 PM [facility] CO2 25 22 - 33 mmol/L 03/04/2024 2:38 PM [facility] Anion Gap 13 7 - 17 03/04/2024 2:38 PM [facility] Calcium 9.1 8.7 - 10.5 mg/dL 03/04/2024 2:38 PM [facility] BUN/Creatinine Ratio 12 10.0 - 25.0 Ratio 03/04/2024 2:38 PM [facility] Blood (Plasma/Serum) 03/04/2024 12:51 PM EST 03/04/2024 2:01 PM EST Mariah Messer MD [place] [address], [place] [address] * (ABNORMAL) proBNP, N-terminal (03/04/2024 5:56 AM EST) Only the most recent of2 resultswithin the time period is included. [facility] proBNP, N-terminal 296(H) <125 pg/mL 03/04/2024 9:02 AM EST [facility] Plasma specimen / Unknown 03/04/2024 5:56 AM EST 03/04/2024 6:30 AM EST Mariah Messer MD LAB BLOOD ORDERABLES Performing Organization Address City/[facility] [place] [address], [place] [address] * (ABNORMAL) Protime-INR (03/04/2024 5:56 AM EST) Only the most recent of6 resultswithin the time period is included. [facility] Anticoagulant WARFARIN (COUMADIN) 03/03/2024 11:00 PM EST Prothrombin Time (PT) 27.7(H) 10.0 - 13.5 seconds 03/04/2024 6:43 AM [facility] INR 2.4 03/04/2024 6:43 AM [facility] Comment:INR Therapeutic Rang es: Standard dose anticoagulant 2.0 to 3.0, High dose anticoagulant 2.5-3.5. Blood Plasma specimen / Unknown 03/04/2024 5:56 AM EST 03/04/2024 6:31 AM EST Mariah Messer MD LAB BLOOD ORDERABLES Performing Organization Address City/[facility] [place] [address], [place] [address] * (ABNORMAL) Complete Blood Count, WITHOUT Differential (routine) (03/04/2024 5:56 AM EST) Only the most recent of6 resultswithin the time period is included. [facility] White Blood Cell Count 5.8 4.0 - 11.0 Thou/uL 03/04/2024 6:35 AM [facility] Platelet Count 153 150 - 450 Thou/uL 03/04/2024 6:35 AM [facility] Hemoglobin 12.1(L) 13.0 - 17.7 g/dL 03/04/2024 6:35 AM [facility] Hematocrit 37.1(L) 39.0 - 54.0 % 03/04/2024 6:35 AM [facility] Red Blood Cell Count 3.82(L) 4.50 - 6.20 Mil/uL 03/04/2024 6:35 AM [facility] MCV 97 80 - 100 fL 03/04/2024 6:35 AM [facility] MCH 31.7(H) 27.0 - 31.0 pg 03/04/2024 6:35 AM [facility] MCHC 32.6 30.0 - 36.0 g/dL 03/04/2024 6:35 AM [facility] RDW 13.2 11.5 - 14.5 % 03/04/2024 6:35 AM [facility] MPV 10.4 7.5 - 12.5 fL 03/04/2024 6:35 AM [facility] Blood Blood specimen / Unknown 03/04/2024 5:56 AM EST 03/04/2024 6:30 AM EST Mariah Messer MD LAB BLOOD ORDERABLES Performing Organization Address City/[facility]/[place] [address], [place] [address] * Phosphorus (Routine) (03/04/2024 5:56 AM EST) Only the most recent of6 resultswithin the time period is included. Phosphorus 3.1 2.7 - 4.5 mg/dL 03/04/2024 7:02 AM [facility] Blood (Plasma/Serum) 03/04/2024 5:56 AM EST 03/04/2024 6:30 AM EST Mariah Messer MD LAB BLOOD ORDERABLES Performing Organization Address City/[facility]/[place] [address], [place] [address] * Magnesium (Routine) (03/04/2024 5:56 AM EST) Only the most recent of7 resultswithin the time period is included. Magnesium 2.0 1.6 - 2.7 mg/dL 03/04/2024 7:02 AM EST [facility] Blood (Plasma/Serum) 03/04/2024 5:56 AM EST 03/04/2024 6:30 AM EST Mariah Messer MD LAB BLOOD ORDERABLES Performing Organization Address City/State/[facility] Co de Phone Number [address] [address], [address] [address] * ECHOCARDIOGRAM COMPREHENSIVE (03/01/2024 2:41 PM EST) Pathologist [facility] IVS Mean (F:0.6-0.9, M:0.6-1.0) 1.2 cm IVS [...] peak aldo mean 1.2 m/s LVOT peak lado 1.2 m/s LVOT VTI MEAN 17.4 cm [...] original result was not included. ?? Department: [facility] Vascular Lab Patient: [id number] (KAREN GORDON) ?? Patient Location: ..[address] CPT Code: 65558 ICD-9: ?? Referring Physician: EVA MILLER Impression [...] Note Bob Gonzales MD - 03/01/2024 Department: [facility] Vascular Lab Patient: [id number] (EVAN KAREN) Patient Location: .[address] CPT Code: 33782 ICD-9: Referring Physician: EVA MILLER Impression Critical [...] T 211(HH) <23 ng/L 02/29/2024 2:45 AM [facility] Comment:Recurring Critical R esult. Previously phoned. Delta (Change) 53(H) <3 02/29/2024 2:45 AM [facility] Comment:Decreased Blood (Plasma/Serum) 02/29/2024 1:29 AM EST 02/29/2024 1:42 AM EST Eva Miller APRN LAB BLOOD ORDERABLE S Performing Organization Address [facility]/[place] [address], [place] [address] * Lactic Acid, Plasma (Routine) (02/29/2024 1:29 AM EST) Only the most recent of3 resultswithin the time period is included. Lactic Acid 1.7 0.5 - 1.9 mmol/L 02/29/2024 2:19 AM EST [facility] Blood Plasma specimen / Unknown 02/29/2024 1:29 AM EST 02/29/2024 1:42 AM EST Eva Miller APRN [place] [address], [place] [address] * (ABNORMAL) Partial Thromboplastin Time (PTT) (02/28/2024 9:13 PM EST) Anticoagulant OTHER AGENT OR UNKNOWN 02/28/2024 9:14 PM EST Partial Thromboplastin Time (PTT) 60(H) 25 - 36 seconds 02/28/2024 10:03 PM EST [facility] Blood Plasma specimen / Unknown 02/28/2024 9:13 PM EST 02/28/2024 9:45 PM EST Eva Miller APRN LAB BLOOD ORDERABLE S Performing Organization Address City/[facility] [place] [address], [place] [address] * ECG 12 lead (02/28/2024 8:52 PM EST) Only the most recent of2 resultswithin the time period is included. Systolic BP 122 mmHg EKG [facility] Diastolic BP 74 mmHg EKG [facility] Ventricular rate 98 BPM EKG [facility] Atrial rate 98 BPM EKG [facility] P-R interval 174 ms EKG [facility] QRS duration 88 ms EKG [facility] Q-T interval 366 ms EKG [facility] QTC calculation (Bazett) 467 ms EKG [facility] P axis 57 degrees EKG [facility] R axis 108 degrees EKG [facility] T axis 51 degrees EKG [facility] 02/28/2024 8:52 PM EST Narrative EKG [facility] - 02/29/2024 6:56 AM EST Normal [...] Whitaker MD ECG ORDERABLES Performing Organization Address City/[facility]/ZIP Co de Phone Number EKG [facility] * (ABNORMAL) POCT Glucose, Fingerstick (02/28/2024 [...] from the original result were not included. [facility] Heart & Vascular [place] [facility] - Cardiac Catheterization Laboratory [facility] Heart [facility] [place] [facility] - Cardiac Catheterization Laboratory PATIENT DEMOGRAPHIC INFORMATION Name: Karen Gordon : 1955 68 y.o. Sex: male Gender: male Procedure Date: 02/28/2024 PROCEDURE DETAILS Reinforced Concrete Inspector: Jerry Plata MD Fellow: MD Alla Gallegos MD Omar Yacob, MBBS Ground [employer] Lines Person(s): none Indications for Procedure: Pulmonary embolism ?? Referring Physician: Charles Fenton PCP: Bonilla rGant MD Procedure(s): Procedures: ??* ARTERIOGRAPHY PULMONARY SELECT-BILAT [...] L/min/kg2 QS = 2.76 Tracings available in [employer] log report CLINICAL HISTORY 64-year-old male presents to the hospital shortness of breath found to have intermediate risk pulmonary embolism with risk enhancing features. PROCEDURE Informed consent was obtained; a procedural timeout was performed; the patient was prepped and draped in sterile fashion; Access: Right femoral vein Sheath: 24F Swedish Under ultrasound guidance the right femoral vein was accessed with a 7F sheath. The vein was preclosed. A right heart catheterization was performed with a [place] Catheter. A pigtail was used to [...] this patient that I request from a [facility] PA/MARITIME PILOT/fellow/staff member. Jerry Plata MD [facility] Heart [facility] V[facility] [place] 02/28/2024 ??7:34 PM Cardiac Protocol pulmonary hypertension [...] atypical angina PCI Indication: other. Indications for Audiology Assistant Visit: other indications Jerry Plata MD CV ENDOVASCULAR OR DERABLES * CC RIGHT HEART CATH, CORONARY ANGIOGRAM, CC THROMBECTOMY (02/28/2024 7:21 PM EST) Anatomical Region Laterality Modality Radiographic Evelyn ging Narrative 02/28/2024 7:59 PM EST Table formatting from the original result was not included. Images from the original result were not included. [facility] Heart [facility] [place] [facility] - Cardiac Catheterization Laboratory [facility] Heart [facility] [place] [facility] - Cardiac Catheterization Laboratory PATIENT DEMOGRAPHIC INFORMATION Name: Karen Gordon : 1955 68 y.o. Sex: male Gender: male Procedure Date: 02/28/2024 PROCEDURE DETAILS Reinforced Concrete Inspector: Jerry Plata MD Fellow: MD Alla Gallegos MD Omar Yacob, MBBS Ground Crew Lines Person(s): none Indications for Procedure: Pulmonary embolism ?? [...] L/min/kg2 QS = 2.76 Tracings available in [employer] log report CLINICAL HISTORY 64-year-old male presents to the hospital shortness of breath found to have intermediate risk pulmonary embolism with risk enhancing features. PROCEDURE Informed consent was obtained; a procedural timeout was performed; the patient was prepped and draped in sterile fashion; Access: Right femoral vein Sheath: 24F Swedish Under ultrasound guidance the right femoral vein was accessed with a 7F sheath. The vein was preclosed. A right heart catheterization was performed with a [place] Catheter. A pigtail was used to [...] this patient that I request from a [facility] PA/YUNIEL/fellow/staff member. Jerry Plata MD [facility] Heart & Vascular [place] 02/28/2024 ??7:34 PM Cardiac Protocol pulmonary hypertension [...] atypical angina PCI Indication: other. Indications for Audiology Assistant Visit: other indications Jerry Plata MD CV CARDIAC CATH OR DERABLES * (ABNORMAL) POCT O2 Saturation (AVOX) (02/28/2024 7:13 PM EST) Only the most recent of2 resultswithin the time period is included. CARMINE 48(A) 60 - 75 % Lot Number [id number] Mica Inspector Pass Pass Blood 02/28/2024 7:13 PM EST [...] 4.0 - 11.0 Thou/uL 02/28/2024 4:36 PM [facility] Platelet Count 144(L) 150 - 450 Thou/uL 02/28/2024 4:36 PM [facility] Hemoglobin 13.6 13.0 - 17.7 g/dL 02/28/2024 4:36 PM [facility] Hematocrit 41.7 39.0 - 54.0 % 02/28/2024 4:36 PM [facility] Red Blood Cell Count 4.32(L) 4.50 - 6.20 Mil/uL 02/28/2024 4:36 PM [facility] MCV 97 80 - 100 fL 02/28/2024 4:36 PM [facility] MCH 31.5(H) 27.0 - 31.0 pg 02/28/2024 4:36 PM [facility] MCHC 32.6 30.0 - 36.0 g/dL 02/28/2024 4:36 PM [facility] RDW 13.2 11.5 - 14.5 % 02/28/2024 4:36 PM [facility] MPV 9.8 7.5 - 12.5 fL 02/28/2024 4:36 PM [facility] Neutrophils Auto 76.5 % 02/27/19 25 4:36 PM [facility] Immature Granulocytes 1.8 % 02/28/2024 4:36 PM [facility] Lymphocytes Auto 14.7 % 02/27/19 4:36 PM [facility] Monocytes Auto 6.3 % 02/28/2024 4:36 PM [facility] Eosinophils Auto 0.5 % 02/27/19 4:36 PM [facility] Basophils Auto 0.2 % 02/28/2024 4:36 PM [facility] Abs Neutrophils Auto 9.60(H) 2.00 - 7.50 Thou/uL 02/28/2024 4:36 PM [facility] Abs Immature Granulocytes 0.22(H) 0.00 - 0.10 Thou/uL 02/28/2024 4:36 PM [facility] Abs Lymphocytes Auto 1.84 1.50 - 4.50 Thou/uL 02/28/2024 4:36 PM [facility] Abs Monocytes Auto 0.79 0.20 - 1.50 Thou/uL 02/28/2024 4:36 PM [facility] Abs Eosinophils Auto 0.06 0.00 - 0.70 Thou/uL 02/28/2024 4:36 PM [facility] Abs Basophils Auto 0.02 0.00 - 0.20 Thou/uL 02/28/2024 4:36 PM [facility] Blood Blood specimen / Unknown 02/28/2024 4:08 PM EST 02/28/2024 4:26 PM EST Sotero Headley MD [place] [address], [place] [address] * (ABNORMAL) Hepatic Function Panel (02/28/2024 4:08 PM EST) Alkaline Phosphatase 134(H) 45 - 128 U/L 02/28/2024 4:58 PM [facility] Aspartate Aminotrans (AST) 28 10 - 55 U/L 02/28/2024 4:58 PM [facility] Alanine Aminotrans (ALT) 30 10 - 55 U/L 02/28/2024 4:58 PM [facility] Bilirubin, Total 0.3 0.2 - 1.0 mg/dL 02/28/2024 4:58 PM [facility] Protein, Total 7.5 6.3 - 8.3 g/dL 02/28/2024 4:58 PM [facility] Albumin 3.9 3.4 - 4.8 g/dL 02/28/2024 4:58 PM [facility] Bilirubin, Direct <0.1 0 - 0.2 mg/dL 02/28/2024 4:58 PM [facility] Globulin 3.6 1.5 - 3.9 g/dL 02/28/2024 4:58 PM [facility] Albumin/Globulin Ratio 1.1 1.0 - 3.0 Ratio 02/28/2024 4:58 PM [facility] Blood (Plasma/Serum) 02/28/2024 4:08 PM EST 02/28/2024 4:26 PM EST Sotero Headley MD LAB BLOOD ORDERABLES Performing Organization Address City/State/[facility] Co de Phone Number [address] [address], [facility] [address] [place] [address] from Last 3 Months Advance Directives * Full Code (Latest Code Status on File) Date Activated Date Inactivated Comments 02/28/2024 8:48 PM * Full Code Date Activated Date Inactivated Comments 02/28/2024 7:40 PM 02/28/2024 8:48 PM Care Teams Computerized Mill Mill Recorder Relationship Specialty Start Date End Date Bonilla Grant MD [address] [place] [address] PCP - General Psychiatry, General 02/28/24
--- OUTSIDE RECORDS SUMMARY | 2024-05-22 17:35 | XMS_ITS | Clinical Summary ---
Author Organization [facility] Address [address] [place] [address] Phone Care Team Providers Care Shrimp Pond Laborer Name Role Phone Bonilla Grant DO Primary Care Provider [phone] Allergies Active Allergy Reactions Criticality Noted Date [...] Description 04/07/2024 1:00 PM EST Office Visit [facility] Hematology Oncology [address] [place] [address] Ranjana Sandoval MD Acute saddle pulmonary embolism without acute cor pulmonale ([facility] V24, [facility] V28); Acute deep vein thrombosis (DVT) of popliteal vein of right lower extremity ([facility] V24, [facility] V28) from Last 3 Months Medical History Medical History Date Comments DVT, lower extremity ([facility] [place]24, [facility] V28) Bipolar 1 disorder ([facility] V24, [facility] V28) Hyperlipidemia Hypothyroidism Lumbar spinal stenosis GI disease Pulmonary emboli ([facility] V24, [facility] V28) Umbilical hernia Family History Medical History Relation [...] Description 06/17/2024 1:15 PM EDT Office Visit [facility] Hematology Oncology [address] [place] [id number] Ranjana Sandoval MD [address] [place] [address] Health Maintenance Due Date Last Done Comments [...] age to complete this topic Meningococcal B Vaccine Aged Out No l onger eligible based on patient's age to complete [...] saddle pulmonary embolism without acute cor pulmonale (CMS/HCC V24, CMS/HCC V28) Acute deep vein thrombosis (DVT) of popliteal vein of right lower extremity (CMS/HCC V24, CMS/HCC V28) LUPUS ANTICOAGULANT WITH REFLEX TO MIXING STUDIES Routine 04/07/2024 1:57 PM EST Orthostatic headache Hyperthermia-induce d defect Blood coagulation disorder (CMS/HCC V24) CARDIOLIPIN ANTIBODY Routine 04/07/2024 1:57 PM EST Acute saddle pulmonary embolism without acute cor pulmonale (CMS/HCC V24, CMS/HCC V28) Acute deep vein thrombosis (DVT) of popliteal vein of right lower extremity (CMS/HCC V24, CMS/HCC V28) CBC AND DIFFERENTIAL Routine 04/07/2024 1:57 PM EST Acute saddle pulmonary embolism without acute cor pulmonale (CMS/HCC V24, CMS/HCC V28) Acute deep vein thrombosis (DVT) of popliteal vein of right lower extremity (CMS/HCC V24, CMS/HCC V28) HM COLONOSCOPY Routine 03/02/2021 from Last 3 Months or Most Recently Relevant to Health Maintenance Results * (ABNORMAL) CBC auto differential (04/07/2024 1:57 PM EST) WBC 5.4 4.8 - 10.8 K/mcL LAB HEMETOLOGY METHOD 04/07/2024 4:[address] [facility] RBC 4.10(L) 4.50 - 5.50 M/mcL LAB HEMETOLOGY METHOD 04/07/2024 4:[address] [facility] Hemoglobin 12.6(L) 13.5 - 17.5 g/dL LAB HEMETOLOGY METHOD 04/07/2024 4:[address] [facility] Hematocrit 39.4(L) 42.0 - 54.0 % LAB HEMETOLOGY METHOD 04/07/2024 4:48 PM [facility] MCV 96.1 79.0 - 98.0 FL LAB HEMETOLOGY METHOD 04/07/2024 4:48 PM [facility] MCH 30.7 27.0 - 32.0 pcg LAB HEMETOLOGY METHOD 04/07/2024 4:48 PM [facility] MCHC 32.0 32.0 - 37.0 g/dL LAB HEMETOLOGY METHOD 04/07/2024 4:48 PM [facility] RDW 13.2 11.0 - 15.0 % LAB HEMETOLOGY METHOD 04/07/2024 4:48 PM [facility] Platelets 181 130 - 400 K/mcL LAB HEMETOLOGY METHOD 04/07/2024 4:48 PM [facility] MPV 10.0 7.0 - 11.0 FL LAB HEMETOLOGY METHOD 04/07/2024 4:48 PM [facility] NRBC 0.0 <1.0 % LAB HEMETOLOGY METHOD 04/07/2024 4:48 PM [facility] NRBC Absolute 0.00 <0.10 K/mcL LAB HEMETOLOGY METHOD 04/07/2024 4:48 PM [facility] Neutrophils Relative 51.4 % LAB HEMETOLOGY METHOD 04/07/2024 4:48 PM [facility] Lymphocytes Relative 31.6 % LAB HEMETOLOGY METHOD 04/07/2024 4:48 PM [facility] Monocytes Relative 9.6 % LAB HEMETOLOGY METHOD 04/07/2024 4:48 PM [facility] Eosinophils Relative 6.8 % LAB HEMETOLOGY METHOD 04/07/2024 4:48 PM [facility] Basophils Relative 0.4 % LAB HEMETOLOGY METHOD 04/07/2024 4:[address] [facility] Immature Granulocytes Relative 0.2 % LAB HEMETOLOGY METHOD 04/07/2024 4:[address] [facility] Neutrophils Absolute 2.80 1.50 - 7.00 K/mcL LAB HEMETOLOGY METHOD 04/07/2024 4:48 PM [facility] Lymphocytes Absolute 1.72 1.00 - 5.00 K/mcL LAB HEMETOLOGY METHOD 04/07/2024 4:[address] [facility] Monocytes Absolute 0.52 0.20 - 1.00 K/mcL LAB HEMETOLOGY METHOD 04/07/2024 4:[address] [facility] Eosinophils Absolute 0.37 0.00 - 0.50 K/mcL LAB HEMETOLOGY METHOD 04/07/2024 4:48 PM [facility] Basophils Absolute 0.02 0.00 - 0.20 K/mcL LAB HEMETOLOGY METHOD 04/07/2024 4:[address] [facility] Immature Granulocytes Absolute 0.01 0.00 - 0.03 K/mcL LAB HEMETOLOGY METHOD 04/07/2024 4:48 PM [facility] Blood Venous blood specimen / Unknown Venipuncture / Unknown 04/07/2024 1:57 PM EST 04/07/2024 4:36 PM EST us Ranjana Sandoval MD LAB BLOOD ORDERABLES Final R esult [facility] [address] [place] [address], * (ABNORMAL) Lupus anticoagulant with reflex to mixing studies (04/07/2024 1:57 PM EST) APTT 60(H) <43 Sec(s) 04/10/2024 12:56 PM EST [facility] aPTT Mix 1:1 38 <43 Sec(s) 04/10/2024 12:56 PM EST [facility] Hexagonal Phase Neutralization NA 04/10/2024 12:56 PM EST [facility] Dilute Cruz Viper Venom 57(H) <44 Sec(s) 04/10/2024 12:56 PM EST [facility] DRVVT 1:1 Mix 36 <44 Sec(s) 04/10/2024 12:56 PM EST [facility] DRVVT Confirmation NA 2024 12:56 PM EST [facility] Interpretation SEE BELOW 04/10/2024 12:56 PM EST [facility] Comment: Lupus anticoagulant not detected. Test performed at [facility], [address] , [place], [place] ??[address] ? [phone] Charlene Harding MD, PhD - Apprentice Electrician Blood Venous blood specimen / Unknown Venipuncture / Unknown 04/07/2024 1:57 PM EST 04/07/2024 4:35 PM EST Ranjana Sandoval MD LAB BLOOD ORDERABLES Final R esult [facility] [address] [place] [address] * Cardiolipin antibody (04/07/2024 1:57 PM EST) [facility] Cardiolipin Antibody Screen Negative Negative LAB CHEMISTRY METHOD 04/08/2024 9:[address] [facility] Blood Venous blood specimen / Unknown Venipuncture / Unknown 04/07/2024 1:57 PM EST 04/07/2024 4:36 PM EST Ranjana Sandoval MD LAB BLOOD ORDERABLES Final R esult [facility] [address] [place] [address], [place] [phone] * Colonoscopy (03/02/2021) [facility] Colonoscopy no interpretation abstracted Anatomical Region Laterality Modality Other us Historical Provider HEALTH MAINTENANCE Final Result from Last 3 Months or Most Recently Relevant to Health Maintenance Insurance [facility] MEDICARE ADVANTAGE MEDICAID - [place] Care Teams Shrimp Pond Laborer Relationship Specialty Start Date End Date Bonilla Grant DO [address], [place] PCP - General Family Medicine 03/10/24
== END 2024-05-22 15:31 | disposition home or self-care (01) ==
LOC: HO.PMC 15:08
PROVIDERS: PCP Family Medicine; Visit Provider Anesthesiology
DX: G89.4 Chronic pain syndrome (principal); M47.816 Spondylosis without myelopathy or radiculopathy, lumbar region; Z97.8 Presence of other specified devices
CPT/HCPCS: 99024

== ENCOUNTER → 2024-05-22 15:07 | Outpatient (BNVA) | payer MEDICARE, MEDICAID, SELFPAY | PROVIDERS: PCP Family Medicine; Visit Provider Anesthesiology | DX: G89.4 Chronic pain syndrome (principal); M47.816 Spondylosis without myelopathy or radiculopathy, lumbar region; Z97.8 Presence of other specified devices | CPT/HCPCS: 99212 ==

== ENCOUNTER 2024-05-29 15:22 | Outpatient (AMB) | payer MEDICARE, MEDICAID, SELFPAY ==
[2024-05-29 15:22] VITALS: BMI 28.5
--- NOTE | 2024-05-29 15:22 | A.OFFVIS_ITS ---
Vital Signs 05/29/24 15:22 Height 5 ft 7 in Weight 182 lb BMI 28.5 Intake Visit Reasons: FU pain around pump area okay per Dr Esquivel Allergies oxycodone Adverse Reaction (Severe, Verified 05/29/24 15:23) vertigo sulfamethoxazole [From Bactrim] Adverse Reaction (Severe, Verified 05/29/24 15:23) AFIB trimethoprim [From Bactrim] Adverse Reaction (Severe, Verified 05/29/24 15:23) AFIB HPI Comments Details: Carlito is on the phone today with complains that both lumbar spine bulging and upper buttock bulging increased in the amount and it causes him more discomfort. We need to schedule him for the removal of the pain pump and intrathecal catheter with suture placement on the dura matter. I will schedule this procedu re with Dr. Feldman and myself as soon as we will receive approval from the insurance company. I will also wait for the results of the UDS of this patient and I will schedule him for the part of the chronic opioid program on 06/09/2024.. PRIOR: Carlito developed subcutaneous CSF leak after pain pump implantation. Revision was done on 04/18/2024 where the leak was discovered coming from the laminitomy and catheter insertion site. the duragen and neurosurgical glue were used to close the leak. never-the less expectations were high that the leak would return. Past Procedures: 04/18/2024: revision of the ItDD system 01/18/2024: Implantation of the I DDD with neurosurgical implanted intrathecal catheter via anatomy. 08/10/23: Attempt of ITDD implant-0% pain relief, procedure aborted 05/22/23: ITDD trial with Fentanyl -80% pain relief for 28 hours 04/20/23: Lumbar Nevro SCS trial-30-40% pain relief COUNTS INCLUDE [facility] BEDS AT [facility] Medical History LAU (dyspnea on exertion) ROSS (obstructive sleep apnea) Arthritis Hiatal hernia Anxiety Depression Elevated cholesterol Atrial fibrillation Umbilical hernia Habitual snoring Sleep apnea Self-catheterizes urinary bladder Disorder of sacroiliac joint Lumbar spinal stenosis Thyroid disease GERD (gastroesophageal reflux disease) Cognitive disorder Back pain Bladder atony Osteoarthritis of hips, bilateral Hypothyroidism Hyperlipidemia Bipolar 1 disorder DVT (deep venous thrombosis) COVID-19 Lynette's thyroiditis Sacroiliac joint pain Bilateral lumbar radiculopathy Spondylosis of lumbar spine Bilateral hip pain Spondylolisthesis Surgical History Previous back surgery History of hand surgery History of esophagogastroduodenoscopy (EGD) (~10/2023) Hx of umbilical hernia repair Hx of colonoscopy Social History Household Members: Spouse Housing: House Are you a primary career manager to a significant other at home: No Do you presently have visiting nurse or other home services: No Comment: COUNTS CORRECT Patient Tobacco Use Status: Never used Tobacco e-Cigarette/Vaping Use: Never Used Review of Systems Const All systems reviewed & are unremarkable except as noted in HPI and below Physical Exam Vital Signs: BMI result Body Mass Index 28.5 Telehealth Telehealth Telehealth Platform: Telephone Location of provider rendering services: practice address Location of patient: address on file Patient Identification confirmed using: Name, : Yes Telehealth method: voice only Patient verbally consented to treatment: Yes Patient verbally consented to billing insurance company: Yes Patient informed of any privacy concerns related to visit: Yes Assessment & Plan Assessment & Plan (1) Chronic pain syndrome: Code(s): G89.4 - Chronic pain syndrome Category: Medical (2) Spondylosis of lumbar spine: Code(s): M47.816 - Spondylosis without myelopathy or radiculopathy, lumbar region Category: Medical (3) Presence of intrathecal pump: Code(s): Z97.8 - Presence of other specified devices Category: Medical Plan The decision was made to explant his intrathecal pain pump and intrathecal catheter and apply a suture on the dura matter. The patient will be scheduled for the surgery with Dr. Velasco and myself. I also will see him on 06/09/2024 and we will discuss chronic opioid program. I am planning to start him on moderate doses of the mucous/buprenorphine. Patient Instructions: I here by testify that I spent 15 minutes in conversation with this patient. Coding Level of Care Code Tele Est Pt Level 3 (22596) Diagnoses Chronic pain syndrome G89.4 Spondylosis of lumbar spine M47.816 Presence of intrathecal pump Z97.8
--- OUTSIDE RECORDS SUMMARY | 2024-05-29 18:02 | XMS_ITS | Clinical Summary ---
Author Organization [facility] Address [address] [place] [address] Phone Care Team Providers Care Paint Mixer Machine Name Role Phone Bonilla Grant DO Primary Care Provider [phone] Allergies Active Allergy Reactions Criticality Noted Date [...] Visit [facility] Hematology Oncology [address] [place] [address] Ranjana Sandoval MD Acute saddle pulmonary embolism without acute cor pulmonale ([facility] V24, [facility] V28); Acute deep vein thrombosis (DVT) of popliteal vein of right lower extremity ([facility] V24, [facility] V28) from Last 3 Months Medical History Medical History Date Comments DVT, lower extremity ([facility] V24, [facility] V28) Bipolar 1 disorder ([facility] V24, [facility] V28) Hyperlipidemia Hypothyroidism Lumbar spinal stenosis GI disease Pulmonary emboli ([facility] V24, [facility] V28) Umbilical hernia Family History Medical History [...] Visit [facility] Hematology Oncology [address] [place] [phone] Ranjana Sandoval MD [address] [place] [address] Health Maintenance Due Date Last Done Comments [...] 5 season) 2023 04/05/2020, 03/15/2020 Influenza Vaccine (Season Ended) 2024 Colorectal Cancer Screening: Colonoscopy 03/02/2026 03/02/2021 Zoster [...] LAB HEMETOLOGY METHOD 04/07/2024 4:48 PM EST [facility] RBC 4.10(L) 4.50 - 5.50 M/mcL LAB HEMETOLOGY METHOD 04/07/2024 4:48 PM EST [facility] Hemoglobin 12.6(L) 13.5 - 17.5 g/dL LAB HEMETOLOGY METHOD 04/07/2024 4:48 PM EST [facility] Hematocrit 39.4(L) 42.0 - 54.0 [...] LAB HEMETOLOGY METHOD 04/07/2024 4:48 PM EST [facility] Immature Granulocytes Relative 0.2 % LAB HEMETOLOGY METHOD 04/07/2024 4:48 PM EST [facility] Neutrophils Absolute 2.80 1.50 - 7.00 K/mcL LAB HEMETOLOGY METHOD 04/07/2024 4:48 PM [facility] Lymphocytes Absolute 1.72 1.00 - 5.00 K/mcL LAB HEMETOLOGY METHOD 04/07/2024 4:48 PM EST [facility] Monocytes Absolute 0.52 0.20 - 1.00 K/mcL LAB HEMETOLOGY METHOD 04/07/2024 4:48 PM EST [facility] Eosinophils Absolute 0.37 0.00 - 0.50 K/mcL LAB HEMETOLOGY METHOD 04/07/2024 4:48 PM [facility] Basophils Absolute 0.02 0.00 - 0.20 K/mcL LAB HEMETOLOGY METHOD 04/07/2024 4:48 PM EST [facility] Immature Granulocytes Absolute 0.01 0.00 - 0.03 K/mcL LAB HEMETOLOGY METHOD 04/07/2024 4:48 PM [facility] Blood Venous blood specimen / Unknown Venipuncture / Unknown 04/07/2024 1:57 PM EST 04/07/2024 4:36 PM EST us Ranjana Sandoval MD LAB BLOOD ORDERABLES Final R esult [facility] [address] [place] [address], * (ABNORMAL) Lupus anticoagulant with reflex to mixing studies (04/07/2024 1:57 PM EST) APTT 60(H) <43 Sec(s) 04/10/2024 12:56 PM EST [facility] aPTT Mix 1:1 38 <43 Sec(s) 04/10/2024 12:56 PM EST [facility] Hexagonal Phase Neutralization NA 04/10/2024 12:56 PM EST [facility] Dilute Cruz Viper Venom 57(H) <44 Sec(s) 04/10/2024 12:56 PM EST [facility] DRVVT 1:1 Mix 36 <44 Sec(s) 04/10/2024 12:56 PM EST [facility] DRVVT Confirmation NA 2024 12:56 PM EST [facility] Interpretation SEE BELOW 04/10/2024 12:56 PM EST [facility] Comment: Lupus anticoagulant not detected. Test performed at [facility], [address] , [place], [place] ??[address] ? [phone] Charlene Harding MD, PhD - Human Factors Scientist Blood Venous blood specimen / Unknown Venipuncture / Unknown 04/07/2024 1:57 PM EST 04/07/2024 4:35 PM EST Ranjana Sandoval MD LAB BLOOD ORDERABLES Final R esult [facility] [address] [place] [address] * Cardiolipin antibody (04/07/2024 1:57 PM EST) [facility] Cardiolipin Antibody Screen Negative Negative LAB CHEMISTRY METHOD 04/08/2024 9:39 AM EST [facility] Blood Venous blood specimen / Unknown Venipuncture / Unknown 04/07/2024 1:57 PM EST 04/07/2024 4:36 PM EST Ranjana Sandoval MD LAB BLOOD ORDERABLES Final R esult [facility] [address] [place] [address], [place] [phone] * Colonoscopy (03/02/2021) [facility] Colonoscopy no interpretation abstracted Anatomical Region Laterality Modality Other us Historical Provider HEALTH MAINTENANCE Final Result from Last 3 Months or Most Recently Relevant to Health Maintenance Insurance [facility] MEDICARE ADVANTAGE MEDICAID - [place] Care Teams Paint Mixer Machine Relationship Specialty Start Date End Date Bonilla Grant DO [address] [place], [place] PCP - General Family Medicine 03/10/24
--- OUTSIDE RECORDS SUMMARY | 2024-05-29 18:02 | XMS_ITS | Clinical Summary ---
Author Organization [facility] Address [address] [place] [address] Care Team Providers Care Cofounder Name Role Phone Bonilla Grant MD Primary Care Provider [phone] Allergies Active Allergy Reactions Criticality Noted Date Comments Sulfamethoxazole-Trimetho prim Other (See Comments) Low 02/28/2024 Arrhythmia Oxycodone Delirium/Confusion/P sych osis Medium 02/28/2024 Medications DULoxetine (CYMBALTA) 30 MG capsule Take 1 [...] mouth. Active metoPROLOL TARTRATE (LOPRESSOR) 25 MG tabletIndicatio ns:Acute saddle pulmonary embolism without acute cor pulmonale (HCC) Take 1 tablet (25 mg total) by mouth 2 (two) times a day. 60 tablet 03/04/2024 Active warfarin (COUMADIN) 5 MG tabletIndicatio ns:Acute saddle pulmonary embolism without acute cor pulmonale (HCC) Take 1 tablet (5 mg total) by mouth daily at the same time. 7 tablet 03/04/2024 Active Active Problems Problem Noted Date Diagnosed Date Saddle embolus of pulmonary artery without acute cor pulmonale 02/28/2024 Encounters Date Type Department Care Team Description 02/28/2024 3:53 PM EST - 03/04/2024 5:12 PM EST Hospital Encounter [address] [address] Sotero Headley MD Schreyer, Evan K, MD Pokhrel, Kamal, MD Shah, Nirali, MD Pulmonary embolism (HCC) (Primary Dx); Acute saddle pulmonary embolism without acute cor pulmonale (HCC) Discharge Disposition: Home or Self Care from Last 3 Months Social History Tobacco Use Types Packs/Day Years Used Date Smoking Tobacco: Never Passive Smoke Exposure: Never Smokeless Tobacco: Never [facility] Utilities Answer Date Recorded In the past 12 months has [employer], oil, or water [employer] threatened to shut off services in your [...] any time in the past 12 m [facility], were you homeless or living in a [facility] (including now)? No 02/29/2024 Sex and Gender Information Value Date Recorded Sex Assigned at Male 02/28/2024 4:16 PM EST Legal Sex Male 7:00 PM EST Gender Identity Male 02/28/2024 4:16 [...] TROPONIN T CARD 02/29/2024 1:29 AM EST from Last 3 Months Results * Basic Metabolic Panel (Routine) (03/04/2024 12:51 PM EST) Only the most recent of6 resultswithin the time period is included. Glucose 92 65 - 99 mg/dL 03/04/2024 2:38 PM [facility] Comment:Fasting: <100 mg/dL, Non-Fasting: <200 mg/dL (ADA 2004) Blood Urea Nitrogen (BUN) 16 8 - 21 mg/dL 03/04/2024 2:38 PM [facility] Creatinine 1.3 0.5 - 1.3 mg/dL 03/04/2024 2:38 PM [facility] eGFR 61 >59 03/04/2024 2:38 PM [facility] Comment:CKD-EPI (2020) in mL /min/1.73 sq meters. Sodium 140 136 - 145 mmol/L 03/04/2024 2:38 PM [facility] Potassium 4.6 3.4 - 5.3 mmol/L 03/04/2024 2:38 PM [facility] Chloride 102 98 - 107 mmol/L 03/04/2024 2:38 PM [facility] CO2 25 22 - 33 mmol/L 03/04/2024 2:38 PM [facility] Anion Gap 13 7 - 17 03/04/2024 2:38 PM [facility] Calcium 9.1 8.7 - 10.5 mg/dL 03/04/2024 2:38 PM [facility] BUN/Creatinine Ratio 12 10.0 - 25.0 Ratio 03/04/2024 2:38 PM [facility] Blood (Plasma/Serum) 03/04/2024 12:51 PM EST 03/04/2024 2:01 PM EST us Mariah Messer MD LAB BLOOD [place]AB[place] [address], [place] [address] * (ABNORMAL) proBNP, N-terminal (03/04/2024 5:56 AM EST) proBNP, N-terminal 296(H) <125 pg/mL 03/04/2024 9:02 AM [facility] Plasma specimen / Unknown 03/04/2024 5:56 AM EST 03/04/2024 6:30 AM EST Mariah Messer MD LAB BLOOD ORDERABLES Final Resu lt Performing Organization Address [facility] [place] [address], [place] [address] * (ABNORMAL) Protime-INR (03/04/2024 5:56 AM EST) Only the most recent of4 resultswithin the time period is included. Anticoagulant WARFARIN (COUMADIN) 03/03/2024 11:00 PM [facility] Prothrombin Time (PT) 27.7(H) 10.0 - 13.5 seconds 03/04/2024 6:43 AM [facility] INR 2.4 03/04/2024 6:43 AM [facility] Comment:INR Therapeutic Rang es: Standard dose anticoagulant 2.0 to 3.0, High dose anticoagulant 2.5-3.5. Blood Plasma specimen / Unknown 03/04/2024 5:56 AM EST 03/04/2024 6:31 AM EST Mariah Messer MD LAB BLOOD ORDERABLES Final Resu lt Performing Organization Address City/[facility] [place] [address], [address] [address] * (ABNORMAL) Complete Blood Count, WITHOUT Differential (routine) (03/04/2024 5:56 AM EST) Only the most recent of5 resultswithin the time period is included. [facility] White Blood Cell Count 5.8 4.0 - 11.0 Thou/uL 03/04/2024 6:35 AM [facility] Platelet Count 153 150 - 450 Thou/uL 03/04/2024 6:35 AM [facility] Hemoglobin 12.1(L) 13.0 - 17.7 g/dL 03/04/2024 6:35 AM [facility] Hematocrit 37.1(L) 39.0 - 54.0 % 03/04/2024 6:35 AM [facility] Red Blood Cell Count 3.82(L) 4.50 - 6.20 Mil/uL 03/04/2024 6:35 AM [facility] MCV 97 80 - 100 fL 03/04/2024 6:35 AM [facility] MCH 31.7(H) 27.0 - 31.0 pg 03/04/2024 6:35 AM [facility] MCHC 32.6 30.0 - 36.0 g/dL 03/04/2024 6:35 AM [facility] RDW 13.2 11.5 - 14.5 % 03/04/2024 6:35 AM [facility] MPV 10.4 7.5 - 12.5 fL 03/04/2024 6:35 AM [facility] Blood Blood specimen / Unknown 03/04/2024 5:56 AM EST 03/04/2024 6:30 AM EST us Mariah Messer MD LAB BLOOD ORDERABLES Final Resu lt Performing Organization Address City/[facility]/[place] [address], [place] [address] * Phosphorus (Routine) (03/04/2024 5:56 AM EST) Only the most recent of5 resultswithin the time period is included. Phosphorus 3.1 2.7 - 4.5 mg/dL 03/04/2024 7:02 AM [facility] Blood (Plasma/Serum) 03/04/2024 5:56 AM EST 03/04/2024 6:30 AM EST us Mariah Messer MD LAB BLOOD ORDERABLES Final Resu lt Performing Organization Address City/[facility]/[place] [address], [address] [address] * Magnesium (Routine) (03/04/2024 5:56 AM EST) Only the most recent of5 resultswithin the time period is included. Pathologist [facility] Magnesium 2.0 1.6 - 2.7 mg/dL 03/04/2024 7:02 AM EST [facility] Blood (Plasma/Serum) 03/04/2024 5:56 AM EST 03/04/2024 6:30 AM EST Mariah Messer MD LAB BLOOD [place] [address], [place] [address] * ECHOCARDIOGRAM COMPREHENSIVE (03/01/2024 2:41 PM EST) [facility] IVS Mean (F:0.6-0.9, M:0.6-1.0) 1.2 cm IVS [...] previous study for comparison in our system. us Mariah Messer MD CV ECHO ORDERABLES Final Result * VAS VENOUS DUPLEX LEG (DVT)-BILATERAL (02/29/2024 4:31 PM EST) Anatomical Region Laterality Modality Ultrasound 02/29/2024 3:10 PM EST Narrative 03/01/2024 3:36 PM EST Table formatting from the original result was not included. ?? Department: [facility] Patient: [id number] (KAREN GORDON) ?? Patient Location: [address] CPT Code: 60829 ICD-9: ?? Referring Physician: EVA MILLER Impression [...] Note Bob Gonzales MD - 03/01/2024 Department: [facility] Patient: [id number] (KAREN GORDON) Patient Location: [address] CPT Code: 66250 ICD-9: Referring Physician: EVA MILLER Impression Critical [...] of Report Mariah Messer MD VASCULAR LAB ORDERABLES Final R esult * (ABNORMAL) High Sensitivity Troponin T (Once) (02/29/2024 1:29 AM EST) High Sensitivity Troponin T 211(HH) <23 ng/L 02/29/2024 2:45 AM [facility] Comment:Recurring Critical R esult. Previously phoned. Delta (Change) 53(H) <3 02/29/2024 2:45 AM [facility] Comment:Decreased Blood (Plasma/Serum) 02/29/2024 1:29 AM EST 02/29/2024 1:42 AM EST Eva Miller APRN LAB BLOOD [place] [address], [place] [address] * Lactic Acid, Plasma (Routine) (02/29/2024 1:29 AM EST) Lactic Acid 1.7 0.5 - 1.9 mmol/L 02/29/2024 2:19 AM [facility] Blood Plasma specimen / Unknown 02/29/2024 1:29 AM EST 02/29/2024 1:42 AM EST Eva Luster VIDEO RENTAL CLERK LAB BLOOD ORDERABLES Final Result [facility] [address] [place] [address], [facility] [address] [place] [address] from Last 3 Months Insurance MEDICARE PART A & B [facility] MEDICARE OUT OF NETWORK Advance Directives * Full Code (Latest Code Status on File) Date Activated Date Inactivated Comments 02/28/2024 8:48 PM * Full Code Date Activated Date Inactivated Comments 02/28/2024 7:40 PM 02/28/2024 8:48 PM Care Teams Cofounder Relationship Specialty Start Date End Date Bonilla Grant MD [address] [place] [id number] PCP - General Psychiatry, General 02/28/24
== END 2024-05-29 15:57 | disposition home or self-care (01) ==
LOC: HO.PMC 15:22
PROVIDERS: PCP Family Medicine; Visit Provider Anesthesiology
DX: G89.4 Chronic pain syndrome (principal); M47.816 Spondylosis without myelopathy or radiculopathy, lumbar region; Z97.8 Presence of other specified devices
CPT/HCPCS: 99024

== ENCOUNTER 2024-06-09 08:52 | Outpatient (AMB) | payer MEDICARE, MEDICAID, SELFPAY ==
--- NOTE | 2024-06-09 08:53 | A.OFFVIS_ITS ---
Vital Signs 06/09/24 08:55 Height 5 ft 7 in Weight 183 lb BMI 28.7 BP 155/83 H Blood Pressure Location Lt brachial Position Sitting Respiration 16 Pulse 81 Pulse Source Pulse Oximeter Pulse Oximetry (%) 98 Oxygen Delivery Method Room Air Intake Visit Reasons: FU per Dr Lim Butadiene Converter Operator Required: No Allergies oxycodone Adverse Reaction (Severe, Verified 06/09/24 08:56) vertigo sulfamethoxazole [From Bactrim] Adverse Reaction (Severe, Verified 06/09/24 08:56) AFIB trimethoprim [From Bactrim] Adverse Reaction (Severe, Verified 06/09/24 08:56) AFIB Medication List - Last Reconciled 06/09/24 by Lily Johnson LPN acetaminophen 1,000 mg PO Q6H PRN atorvastatin 20 mg PO BEDTIME carbamazepine (Tegretol) 400 mg PO BEDTIME cranberry extract (Cranberry Concentrate) 1,500 mg PO DAILY cyclobenzaprine 10 mg PO BEDTIME PRN 90 days d-mannose 500 mg PO DAILY duloxetine 60 mg PO BEDTIME duloxetine 30 mg PO BEDTIME gabapentin 300 mg PO BEDTIME 90 days levothyroxine 50 mcg PO DAILY metoprolol tartrate 25 mg PO BID naloxone 4 mg/actuation 4 mg intranasal Q2M PRN 1 day naloxone 4 mg/actuation 4 mg intranasal Q2M PRN 1 day pantoprazole 40 mg PO BID topiramate 25 mg PO BID tramadol 50 mg PO Q6H PRN 7 days warfarin 5 mg PO DAILY HPI Comments Details: Carlito is in the office today to discuss possibility of treating his chronic pain with systemic medication. We discussed possibility of continuation of the treatment with tramadol. In my opinion this medication could be acceptable for short courses however on the chronic condition with administration month to month and year to year on the patient with history of bipolar disorder and anxiety disorder this is less than ideal medication. I offered the patient to get started on buprenorphine. In my opinion this medication as agonist/antagonist of opioid medications will allow him to stay more stable and avoid sharp escalation of the opioid doses and development of the opioid tolerance. I will request pre approval of this medication from his insurance company. The assessment of the opioid risks was performed today. His PHQ score is equal to 8. His opioid addiction score is equal to 10. Therefore the total score is equal to 18. He has moderate risk for opioid addiction. I explained to the patient risks and benefits of chronic opioid therapy he signed opioid agreement, opioid consent and opioid information page. We are working with office of Dr. Velasco for the removal of the intrathecal pain pump. PRIOR: Carlito developed subcutaneous CSF leak after pain pump implantation. Revision was done on 04/18/2024 where the leak was discovered coming from the laminitomy and catheter insertion site. the duragen and neurosurgical glue were used to close the leak. never-the less expectations were high that the leak would return. Past Procedures: 04/18/2024: revision of the ItDD system 01/18/2024: Implantation of the I DDD with neurosurgical implanted intrathecal catheter via anatomy. 08/10/23: Attempt of ITDD implant-0% pain relief, procedure aborted 05/22/23: ITDD trial with Fentanyl -80% pain relief for 28 hours 04/20/23: Lumbar Nevro SCS trial-30-40% pain relief PFSH Medical History LAU (dyspnea on exertion) ROSS (obstructive sleep apnea) Arthritis Hiatal hernia Anxiety Depression Elevated cholesterol Atrial fibrillation Umbilical hernia Habitual snoring Sleep apnea Self-catheterizes urinary bladder Disorder of sacroiliac joint Lumbar spinal stenosis Thyroid disease GERD (gastroesophageal reflux disease) Cognitive disorder Back pain Bladder atony Osteoarthritis of hips, bilateral Hypothyroidism Hyperlipidemia Bipolar 1 disorder DVT (deep venous thrombosis) COVID-19 Lynette's thyroiditis Sacroiliac joint pain Bilateral lumbar radiculopathy Spondylosis of lumbar spine Bilateral hip pain Spondylolisthesis Surgical History Previous back surgery History of hand surgery History of esophagogastroduodenoscopy (EGD) (~10/2023) Hx of umbilical hernia repair Hx of colonoscopy Social History Household Members: Spouse Housing: House Are you a primary day care home mother to a significant other at home: No Do you presently have visiting nurse or other home services: No Comment: COUNTS CORRECT Patient Tobacco Use Status: Never used Tobacco e-Cigarette/Vaping Use: Never Used Review of Systems Const All systems reviewed & are unremarkable except as noted in HPI and below Physical Exam Vital Signs: Last Vital Signs Pulse 81 06/09/24 08:55 Resp 16 06/09/24 08:55 BP 155/83 H 06/09/24 08:55 Pulse Ox 98 06/09/24 08:55 Oxygen Delivery Method Room Air 06/09/24 08:55 BMI result Body Mass Index 28.7 General: Appears afebrile. Alert and oriented. Mood and affect appropriate. Follows and participates in conversation appropriately. Respiratory effort is unlabored. Able to transition from sit to stand unassisted. Ambulates with bilaterally normal heel strike and toe off. General: Yes no CVA tenderness Back/Spine/Pelvis Other: Midline incision wound-No pathological discharge, no swelling and no erythema. t he upper buttock incision is also clean, no erythema, no edema, no local tenderness, however deep under the skin both of the incisions exhibits signs of ballottement of the fluid. Back: no CVA tenderness Assessment & Plan Assessment & Plan (1) Chronic pain syndrome: Code(s): G89.4 - Chronic pain syndrome Category: Medical (2) Spondylosis of lumbar spine: Code(s): M47.816 - Spondylosis without myelopathy or radiculopathy, lumbar region Category: Medical (3) Presence of intrathecal pump: Code(s): Z97.8 - Presence of other specified devices Category: Medical Plan The decision was made to explant his intrathecal pain pump and intrathecal catheter and apply a suture on the dura matter. The patient will be scheduled for the surgery with Dr. Velasco and myself. We admitted him for chronic opioid program today here. I will start him on buprenorphine patch 7.5 micro g per hour. This is not formulary medication but I think for this patient this will be ideal medication. We would need to pre approve this medication with his insurance company. Medications: New buprenorphine 7.5 mcg/hour 1 patch transdermal QWEEK 4 ea 1RF 28 days Patient Instructions: I here by testify that I spent 32 minutes in conversation with this patient as well as planning his care and organizing this note. Coding Level of Care Code Est Pt Level 4 (47326) Diagnoses Chronic pain syndrome G89.4 Spondylosis of lumbar spine M47.816 Presence of intrathecal pump Z97.8
[2024-06-09 08:55] VITALS: BP 155/83; PULSE 81; RESP 16; O2SAT 98; BMI 28.7
--- OUTSIDE RECORDS SUMMARY | 2024-06-09 09:32 | XMS_ITS | Clinical Summary ---
Author Organization [facility] Address [address] [place] [address] Phone Care Team Providers Care Research Engineer Name Role Phone Bonilla Grant DO Primary Care Provider [phone] Allergies Active Allergy Reactions Criticality Noted Date [...] Description 04/07/2024 1:00 PM EST Office Visit [facility] Hematology Oncology [address] [place] [address] Ranjana Sandoval MD Acute saddle pulmonary embolism without acute cor pulmonale ([facility] V24, [facility] V28); Acute deep vein thrombosis (DVT) of popliteal vein of right lower extremity ([facility] V24, [facility] V28) from Last 3 Months Medical History Medical History Date Comments DVT, lower extremity ([facility] V24, [facility] V28) Bipolar 1 disorder ([facility] V24, [facility] V28) Hyperlipidemia Hypothyroidism Lumbar spinal stenosis GI disease Pulmonary emboli ([facility] V24, [facility] V28) Umbilical hernia Family History Medical History [...] Description 06/17/2024 1:15 PM EDT Office Visit [facility] Hematology Oncology [address] [place] [phone] Ranjana Sandoval MD [address] [place] [address] Health Maintenance Due Date Last Done Comments [...] LAB HEMETOLOGY METHOD 04/07/2024 4:48 PM EST [facility] RBC 4.10(L) 4.50 - 5.50 M/mcL LAB HEMETOLOGY METHOD 04/07/2024 4:48 PM EST [facility] Hemoglobin 12.6(L) 13.5 - 17.5 g/dL LAB HEMETOLOGY METHOD 04/07/2024 4:48 PM EST [facility] Hematocrit 39.4(L) 42.0 - 54.0 [...] LAB HEMETOLOGY METHOD 04/07/2024 4:48 PM EST [facility] Immature Granulocytes Relative 0.2 % LAB HEMETOLOGY METHOD 04/07/2024 4:48 PM EST [facility] Neutrophils Absolute 2.80 1.50 - 7.00 K/mcL LAB HEMETOLOGY METHOD 04/07/2024 4:48 PM [facility] Lymphocytes Absolute 1.72 1.00 - 5.00 K/mcL LAB HEMETOLOGY METHOD 04/07/2024 4:48 PM EST [facility] Monocytes Absolute 0.52 0.20 - 1.00 K/mcL LAB HEMETOLOGY METHOD 04/07/2024 4:48 PM EST [facility] Eosinophils Absolute 0.37 0.00 - 0.50 K/mcL LAB HEMETOLOGY METHOD 04/07/2024 4:48 PM [facility] Basophils Absolute 0.02 0.00 - 0.20 K/mcL LAB HEMETOLOGY METHOD 04/07/2024 4:48 PM EST [facility] Immature Granulocytes Absolute 0.01 0.00 - 0.03 K/mcL LAB HEMETOLOGY METHOD 04/07/2024 4:48 PM [facility] Blood Venous blood specimen / Unknown Venipuncture / Unknown 04/07/2024 1:57 PM EST 04/07/2024 4:36 PM EST us Ranjana Sandoval MD LAB BLOOD ORDERABLES Final R esult [facility] [address] [place] [address], * (ABNORMAL) Lupus anticoagulant with reflex to mixing studies (04/07/2024 1:57 PM EST) APTT 60(H) <43 Sec(s) 04/10/2024 12:56 PM EST [facility] aPTT Mix 1:1 38 <43 Sec(s) 04/10/2024 12:56 PM EST [facility] Hexagonal Phase Neutralization NA 04/10/2024 12:56 PM EST [facility] Dilute Cruz Viper Venom 57(H) <44 Sec(s) 04/10/2024 12:56 PM EST [facility] DRVVT 1:1 Mix 36 <44 Sec(s) 04/10/2024 12:56 PM EST [facility] DRVVT Confirmation NA 2024 12:56 PM EST [facility] Interpretation SEE BELOW 04/10/2024 12:56 PM EST [facility] Comment: Lupus anticoagulant not detected. Test performed at [facility], [address] , [place], [place] ??[address] ? [phone] Charlene Harding MD, PhD - Medicaid Business Analyst Blood Venous blood specimen / Unknown Venipuncture / Unknown 04/07/2024 1:57 PM EST 04/07/2024 4:35 PM EST Ranjana Sandoval MD LAB BLOOD ORDERABLES Final R esult [facility] [address] [place] [address] * Cardiolipin antibody (04/07/2024 1:57 PM EST) [facility] Cardiolipin Antibody Screen Negative Negative LAB CHEMISTRY METHOD 04/08/2024 9:39 AM EST [facility] Blood Venous blood specimen / Unknown Venipuncture / Unknown 04/07/2024 1:57 PM EST 04/07/2024 4:36 PM EST Ranjana Sandoval MD LAB BLOOD ORDERABLES Final R esult [facility] [address] [place] [address], [place] [phone] * Colonoscopy (03/02/2021) [facility] Colonoscopy no interpretation abstracted Anatomical Region Laterality Modality Other us Historical Provider HEALTH MAINTENANCE Final Result from Last 3 Months or Most Recently Relevant to Health Maintenance Insurance [facility] MEDICARE ADVANTAGE MEDICAID - [place] Care Teams Research Engineer Relationship Specialty Start Date End Date Bonilla Grant DO [address] [place], [place] PCP - General Family Medicine 03/10/24
--- OUTSIDE RECORDS SUMMARY | 2024-06-09 09:32 | XMS_ITS | Clinical Summary ---
Author Organization [facility] Address [address] [place] [address] Care Team Providers Care Technical Marketing Engineer Name Role Phone Bonilla Grant MD Primary Care Provider [phone] Allergies Active Allergy Reactions Criticality Noted Date [...] pulmonary artery without acute cor pulmonale 02/28/2024 Social History Tobacco Use Types Packs/Day Years Used Date Smoking Tobacco: Never Passive Smoke Exposure: Never Smokeless Tobacco: Never [facility] [employer] Answer Date Recorded In the past 12 months has [employer], gas, oil, or water [employer] threatened to shut off services in your [...] any time in the past 12 m [facility], were you homeless or living in a [place] facility (including now)? No 02/29/2024 Sex and Gender [...] 2) 04/24/2007 Influenza Vaccine 09/13/2023 COVID-19 Vaccine ( - 2023-2 5 season) 2023 RSV Vaccine 60 years and old er and Patients (1 - 1-dose 75+ series) 2032 Hepatitis B Vaccines Aged Out No long er eligible based on patient's age to complete this topic Insurance MEDICARE PART A & B [employer] MEDICARE OUT OF NETWORK Advance Directives * Full Code (Latest Code Status on File) Date Activated Date Inactivated Comments 02/28/2024 8:48 PM * Full Code Date Activated Date Inactivated Comments 02/28/2024 7:40 PM 02/28/2024 8:48 PM Care Teams Technical Marketing Engineer Relationship Specialty Start Date End Date Bonilla Grant MD [address] [place] [address] PCP - General Psychiatry, General 02/28/24
== END 2024-06-09 09:39 | disposition home or self-care (01) ==
LOC: HO.PMC 08:52
PROVIDERS: PCP Family Medicine; Visit Provider Anesthesiology
DX: G89.4 Chronic pain syndrome (principal); M47.816 Spondylosis without myelopathy or radiculopathy, lumbar region; Z97.8 Presence of other specified devices
CPT/HCPCS: 99024

== ENCOUNTER → 2024-06-09 08:52 | Outpatient (BNVA) | payer MEDICARE, MEDICAID, SELFPAY | PROVIDERS: PCP Family Medicine; Visit Provider Anesthesiology | DX: M47.816 Spondylosis without myelopathy or radiculopathy, lumbar region (principal); G89.4 Chronic pain syndrome; Z97.8 Presence of other specified devices | CPT/HCPCS: 99212 ==

== ENCOUNTER 2024-06-19 10:46 | Outpatient (AMB) | payer MEDICARE, MEDICAID, SELFPAY ==
[2024-06-19 10:58] VITALS: BP 122/77; PULSE 95; RESP 16; O2SAT 98; BMI 28.7
--- NOTE | 2024-06-19 10:58 | A.OFFVIS_ITS ---
Vital Signs 06/19/24 10:58 Height 5 ft 7 in Weight 183 lb BMI 28.7 BP 122/77 Blood Pressure Location Lt brachial Position Sitting Respiration 16 Pulse 95 Pulse Source Pulse Oximeter Pulse Oximetry (%) 98 Oxygen Delivery Method Room Air Intake Visit Reasons: Drain pump per Dr Lim [employer] Intern[employer] Required: No Newspaper Editor: Newspaper Editor Present Accompanied by: Taye Rodriguez Allergies oxycodone Adverse Reaction (Severe, Verified 06/19/24 10:59) vertigo sulfamethoxazole [From Bactrim] Adverse Reaction (Severe, Verified 06/19/24 10:59) AFIB trimethoprim [From Bactrim] Adverse Reaction (Severe, Verified 06/19/24 10:59) AFIB Medication List - Last Reconciled 06/19/24 by Lily Johnson LPN acetaminophen 1,000 mg PO Q6H PRN atorvastatin 20 mg PO BEDTIME buprenorphine 7.5 mcg/hour 1 patch transdermal QWEEK 28 days carbamazepine (Tegretol) 400 mg PO BEDTIME cranberry extract (Cranberry Concentrate) 1,500 mg PO DAILY cyclobenzaprine 10 mg PO BEDTIME PRN 90 days d-mannose 500 mg PO DAILY duloxetine 60 mg PO BEDTIME duloxetine 30 mg PO BEDTIME gabapentin 300 mg PO BEDTIME 90 days levothyroxine 50 mcg PO DAILY metoprolol tartrate 25 mg PO BID naloxone 4 mg/actuation 4 mg intranasal Q2M PRN 1 day naloxone 4 mg/actuation 4 mg intranasal Q2M PRN 1 day pantoprazole 40 mg PO BID topiramate 25 mg PO BID tramadol 50 mg PO Q6H PRN 7 days warfarin 5 mg PO DAILY HPI Comments Details: Carlito is in the office today With complains on severe bulging of the pain pump pocket. He requests me to aspirate the pocket because he can not possibly wait any longer for surgery of the removal of the intrathecal catheter and removal of the intrathecal pain pump. The procedure was performed see as below. We will continue observation of this patient, he will be scheduled for the procedure in July to remove the intrathecal pain pump. The assessment of the opioid risks was performed today. His PHQ score is equal to 8. His opioid addiction score is equal to 10. Therefore the total score is equal to 18. He has moderate risk for opioid addiction. I explained to the patient risks and benefits of chronic opioid therapy he signed opioid agreement, opioid consent and opioid information page. PRIOR: Carlito developed subcutaneous CSF leak after pain pump implantation. Revision was done on 04/18/2024 where the leak was discovered coming from the laminitomy and catheter insertion site. the duragen and neurosurgical glue were used to close the leak. never-the less expectations were high that the leak would return. Past Procedures: 04/18/2024: revision of the ItDD system 01/18/2024: Implantation of the I DDD with neurosurgical implanted intrathecal catheter via anatomy. 08/10/23: Attempt of ITDD implant-0% pain relief, procedure aborted 05/22/23: ITDD trial with Fentanyl -80% pain relief for 28 hours 04/20/23: Lumbar Nevro SCS trial-30-40% pain relief [facility] Medical History LAU (dyspnea on exertion) ROSS (obstructive sleep apnea) Arthritis Hiatal hernia Anxiety Depression Elevated cholesterol Atrial fibrillation Umbilical hernia Habitual snoring Sleep apnea Self-catheterizes urinary bladder Disorder of sacroiliac joint Lumbar spinal stenosis Thyroid disease GERD (gastroesophageal reflux disease) Cognitive disorder Back pain Bladder atony Osteoarthritis of hips, bilateral Hypothyroidism Hyperlipidemia Bipolar 1 disorder DVT (deep venous thrombosis) COVID-19 Lynette's thyroiditis Sacroiliac joint pain Bilateral lumbar radiculopathy Spondylosis of lumbar spine Bilateral hip pain Spondylolisthesis Surgical History Previous back surgery History of hand surgery History of esophagogastroduodenoscopy (EGD) (~10/2023) Hx of umbilical hernia repair Hx of colonoscopy Social History Household Members: Spouse Housing: House Are you a primary resident care associate to a significant other at home: No Do you presently have visiting nurse or other home services: No Comment: COUNTS CORRECT Patient Tobacco Use Status: Never used Tobacco e-Cigarette/Vaping Use: Never Used Review of Systems Const All systems reviewed & are unremarkable except as noted in HPI and below Physical Exam Vital Signs: Last Vital Signs Pulse 95 06/19/24 10:58 Resp 16 06/19/24 10:58 BP 122/77 06/19/24 10:58 Pulse Ox 98 06/19/24 10:58 Oxygen Delivery Method Room Air 06/19/24 10:58 BMI result Body Mass Index 28.7 General: Appears afebrile. Alert and oriented. Mood and affect appropriate. Follows and participates in conversation appropriately. Respiratory effort is unlabored. Able to transition from sit to stand unassisted. Ambulates with bilaterally normal heel strike and toe off. General: Yes no CVA tenderness Back/Spine/Pelvis Other: Midline incision wound-No pathological discharge, no swelling and no erythema. the upper buttock incision is also clean, no erythema, no edema, no local tenderness, however deep under the skin both of the incisions exhibits signs of ballottement of the fluid. Back: no CVA tenderness Assessment & Plan Assessment & Plan (1) Chronic pain syndrome: Code(s): G89.4 - Chronic pain syndrome Category: Medical (2) Spondylosis of lumbar spine: Code(s): M47.816 - Spondylosis without myelopathy or radiculopathy, lumbar region Category: Medical (3) Presence of intrathecal pump: Code(s): Z97.8 - Presence of other specified devices Category: Medical Plan: Aspiration of the pain pump pocket. Informed consent was explained to the patient. The patient was positioned prone on the examination table. the area of the pain pump was prepped with ChloraPrep twice. Sterile fenestrated day dressing was applied. Noncoring needle was assembled with the extension to the 20 cc syringe. After that under strict sterile condition the posterior wall the pain pump pocket was penetrated by the needle and 80 mL of CSF transparent and straw-colored was aspirated from the pocket. Upon completion of the aspiration the needle was removed and Band- Aid was applied. The patient tolerated procedure well. Plan The decision was made to explant his intrathecal pain pump and intrathecal catheter and apply a suture on the dura matter. The patient will be scheduled for the surgery with Dr. Velasco and myself. The procedure due to scheduling difficulties will be performed in July. Meanwhile the inspection today demonstrated thinning of the skin and severe bulging of the collection of the CSF under the skin. Possibility of skin rupture with continuous collection of the CSF could not be excluded. The decision was made to perform aspiration of the fluid as above. We admitted him for chronic opioid program today here. Coding Level of Care Code Est Pt Level 3 (23981) Procedure Only Diagnoses Chronic pain syndrome G89.4 Spondylosis of lumbar spine M47.816 Presence of intrathecal pump Z97.8
--- OUTSIDE RECORDS SUMMARY | 2024-06-19 12:14 | XMS_ITS | Clinical Summary ---
Author Organization [facility] Address [address] [place] [address] Care Team Providers Care Fisher Trawl Net Name Role Phone Bonilla Grant MD Primary Care Provider [phone] Allergies Active Allergy Reactions Criticality Noted Date [...] Passive Smoke Exposure: Never Smokeless Tobacco: Never [facility] [employer] Answer Date Recorded In the past 12 months has [employer], gas, oil, or water [employer] threatened to shut off services in your [...] any time in the past 12 m [facility], were you homeless or living in a jail (including now)? No 02/29/2024 Sex and Gender [...] Zoster (Shingles) Vaccine (1 of 2) 04/24/2007 COVID-19 Vaccine (2023-2 5 season) 2023 Influenza Vaccine 09/12/2024 RSV Vaccine 60 years and old er [...] 7:40 PM 02/28/2024 8:48 PM Care Teams Fisher [employer] Relationship Specialty Start Date End Date Bonilla Grant MD [address] [place] [address] PCP - General Psychiatry, General 02/28/24
--- OUTSIDE RECORDS SUMMARY | 2024-06-19 12:14 | XMS_ITS | Clinical Summary ---
Author Organization [facility] Address [address] [place] [address] Phone Care Team Providers Care Software Recruiter Name Role Phone Bonilla Grant DO Primary Care Provider [phone] Allergies Active Allergy Reactions Criticality Noted Date Comments Sulfamethoxazole-Trimethopr im 04/07/2024 Other 11/05/2020 Bactrim [Na Benzoate-sulfamethoxazole -trimethoprim Oxycontin [Indigotine-oxycodone Hcl] Oxycodone 11/05/2020 Medications acetaminophen (TYLENOL 8 HOUR ORAL) Take by mouth. Activ e ascorbic acid (VITAMIN C) 500 mg tablet Take 500 mg by mouth daily. Active cholecalciferol , vitamin D3, (VITAMIN D3 ORAL) Take by mouth. Activ e carBAMazepine (CARBATROL) 200 mg 12 hr capsule [...] (5 mg total) by mouth. 5 Active traMADoL (ULTRAM) 50 mg tablet 0 Refills, Maintenance, 04/29/24 1:42:00 PM EDT, Partial fill upon patient request if the prescription is for a schedule II opioid drug. 5 Active Encounters Date Type Department Care Team Description 06/17/2024 1:15 PM EDT Office Visit [facility] Hematology Oncology [address] [place] [phone] Ranjana Sandoval MD History of DVT (deep vein thrombosis) (Primary Dx); History of pulmonary embolism 04/07/2024 1:00 PM EST Office Visit [facility] Hematology Oncology [address] [place] [phone] Ranjana Sandoval MD Acute saddle pulmonary embolism without acute cor pulmonale (CMS/[facility] V24, [facility] V28); Acute deep vein thrombosis (DVT) of popliteal vein of right lower extremity ([facility] V24, [facility] V28) from Last 3 Months Medical History Medical History Date Comments DVT, lower extremity ([facility] V24, CMS/[facility] V28) Bipolar 1 disorder (CMS/[facility] V24, [facility] V28) Hyperlipidemia Hypothyroidism Lumbar spinal stenosis GI disease Pulmonary emboli ([facility] V24, CMS/[facility] V28) Umbilical hernia Family History Medical History Relation Name Comments Prostate cancer Father Relation Name Status Comments Father Social History Tobacco Use Types Packs/Day Years Used Date Smoking Tobacco: Never Smokeless Tobacco: Never Tobacco Cessation:Counseling Given: Not Answered Alcohol Use Standard Drinks/Week Comments Not Currently [...] Sign Reading Time Taken Comments Blood Pressure 129/68 06/17/2024 1:15 PM EDT Pulse 69 06/17/2024 1:15 PM EDT Temperature 36.3 ??C (97.4 ??F) 06/17/2024 1:15 PM ED T Respiratory Rate - - Oxygen Saturation 100% 06/17/2024 1:15 PM EDT Inhaled Oxygen Concentration - - Weight 82.6 kg (182 lb) 06/17/2024 1:15 PM EDT Height 170.2 cm (5' 7 ) 04/07/2024 1:04 PM EST Body Mass Index 28.51 04/07/2024 1:04 PM EST Plan of Treatment Health Maintenance Due Date Last Done Comments Pneumococcal Vaccine: 50+ Years (1 of 2 - PCV) 1974 RSV Immunization Adult Patients (1 - Risk [...] defect Blood coagulation disorder (CMS/HCC V24) CARDIOLIPIN ANTIBODIES, IGG, IGM AND IGA Routine 04/07/2024 1:57 PM EST Acute saddle [...] PM EST [facility] Basophils Relative [...] 4:48 PM [facility] Monocytes Absolute 0.52 0.20 - 1.00 K/mcL LAB HEMETOLOGY METHOD 04/07/2024 4:48 PM [facility] Eosinophils Absolute 0.37 0.00 - 0.50 K/mcL LAB HEMETOLOGY METHOD 04/07/2024 4:48 PM EST [facility] Basophils Absolute 0.02 0.00 - 0.20 K/mcL LAB HEMETOLOGY METHOD 04/07/2024 4:48 PM [facility] Immature Granulocytes Absolute 0.01 0.00 - 0.03 K/mcL LAB HEMETOLOGY METHOD 04/07/2024 4:48 PM [facility] Blood Venous blood specimen / Unknown Venipuncture / Unknown 04/07/2024 1:57 PM EST 04/07/2024 4:36 PM EST us Ranjana Sandoval MD LAB BLOOD ORDERABLES Final R esult [facility] [address] [place] [address], [place] [phone] * (ABNORMAL) Lupus anticoagulant with reflex to mixing studies (04/07/2024 1:57 PM EST) APTT 60(H) <43 Sec(s) 04/10/2024 12:56 PM EST [facility] aPTT Mix 1:1 38 <43 Sec(s) 04/10/2024 12:56 PM EST [facility] Hexagonal Phase Neutralization NA 04/10/2024 12:56 PM EST [facility] Dilute Cruz Viper Venom 57(H) <44 Sec(s) 04/10/2024 12:56 PM EST [facility] DRVVT 1:1 Mix 36 <44 Sec(s) 04/10/2024 12:56 PM EST [facility] DRVVT Confirmation NA 2024 12:56 PM EST [facility] Interpretation SEE BELOW 04/10/2024 12:56 PM EST [facility] Comment: Lupus anticoagulant not detected. Test performed at [facility], [address] , [place], [place] ??[address] ? [phone] Charlene Harding MD, PhD - Implementation Specialist Payroll Blood Venous blood specimen / Unknown Venipuncture / Unknown 04/07/2024 1:57 PM EST 04/07/2024 4:35 PM EST us Ranjana Sandoval MD LAB BLOOD ORDERABLES Final R esult [facility] [address] [place] [address] * Cardiolipin antibody (04/07/2024 1:57 PM EST) Pathologist [facility] Cardiolipin Antibody Screen Negative Negative LAB CHEMISTRY METHOD 04/08/2024 9:39 AM EST [facility] Blood Venous blood specimen / Unknown Venipuncture / Unknown 04/07/2024 1:57 PM EST 04/07/2024 4:36 PM EST Ranjana Sandoval MD LAB BLOOD ORDERABLES Final R esult [facility] [address] [place] [address], [place] [phone] * Colonoscopy (03/02/2021) Colonoscopy no interpretation abstracted Anatomical Region Laterality Modality Other Historical Provider MD HEALTH MAINTENANCE Final Result from Last 3 Months or Most Recently Relevant to Health Maintenance Insurance [facility] MEDICARE ADVANTAGE MEDICAID - [place] Care Teams Software Recruiter Relationship Specialty Start Date End Date Bonilla Grant DO [address] [place] [address] PCP - General Family Medicine 03/10/24
--- OUTSIDE RECORDS SUMMARY | 2024-06-19 12:14 | XMS_ITS | Encounter Summary ---
Author Organization [facility] Address [address] [place] [address] Care Team Providers Care Charge Account Clerk Name Role Phone Bonilla Grant DO Primary Care Provider [phone] Reason for Visit * Reason Comments Follow-up Encounter Details Date Type Department Care Team ([facility] st Contact Info) Description 06/17/2024 1:15 PM EDT Office Visit [facility] Hematology Oncology [address] [place] [phone] Ranjana Sandoval MD [address] [place] [address] History of DVT (deep vein thrombosis) (Primary Dx); History of pulmonary embolism Social History Tobacco Use Types Packs/Day Years [...] (182 lb) 06/17/2024 1:15 PM EDT Height - - Body Mass Index 28.51 04/07/2024 1:04 PM EST documented in this encounter Progress Notes * Ranjana Sandoval MD - 06/17/2024 1:15 PM EDT ONC CANCER FOLLOW UP CHIEF COMPLAINT: Follow-up IDENTIFIER:Carlito Guerrero is a 69 y.o. male. HPI: 69-year-old man, who who has history of provoked venous thrombosis in 2007 after a prolonged hospitalization/surgery, did anticoagulation for 6 months, patient was without any anticoagulation and hasno prior history or family history of clotting disorder but patient underwent back surgery for significant radiculopathy few months ago, patient in February 3 week developed significant shortness of breath and was sent to hospital by his surgeon, patient had CT angiogram that showed saddle pulmonaryemboli as well as Doppler study shows right lower extremity deep venous thrombosis, patient was transferred from [facility] to [facility] for thrombectomy, patient was on Lovenox and changed to/bridged to warfarin on discharge from hospital (patient cannot be on DOAC because of carbamazepine). 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 He is lives with his FAMILY HISTORY: No family history of clotting disorder Current Outpatient Medications: acetaminophen (TYLENOL 8 HOUR [...] mouth 2 times daily., Disp: , Rfl: traMADoL (ULTRAM) 50 mg tablet, 0 Refills, Maintenance, 04/29/24 1:42:00 PM EDT, Partial fill upon patient request if the prescription is for a schedule II opioid drug., Disp: , Rfl: warfarin (COUMADIN) 5 mg tablet, Take 1 tablet (5 mg total) by mouth., Disp: , Rfl: Allergies Allergen Reactions Bactrim [Sulfamethoxazole-Trimethoprim] Other Bactrim [Na Cybqxjqq-ghlsfjrmqafjhtsx-upyxzovrhnmo Oxycontin [Indigotine-oxycodone Hcl] Oxycontin [Oxycodone] PHYSICAL EXAM: Visit Vitals BP 129/68 (BP Location: Left arm, Patient Position: Sitting, BP Cuff Size: Adult) Pulse 69 Temp 36.3 ??C (97.4 ??F) (Temporal) Wt 82.6 kg (182 lb) SpO2 100% BMI 28.51 kg/m?? Smoking Status Never BSA 1.94 m?? ECOG 0 APPEARANCE: Alert and oriented in no acute distress EYES: nonicteric sclera pink conjunctiva ORAL CAVITY: No erythema or exudates NECK: Neck supple, no significant adenopathy, HEART: normal S1 and S2 LUNG: clear to auscultation bilaterally LYMPH NODES: No palpable superficial adenopathy ABDOMEN: soft, nontender and no organomegaly appreciated EXTREMITIES: no edema, erythema or tenderness LABS: Lupus anticoagulant not detected Anticardiolipin antibody negative Factor V Leiden and prothrombin gene mutation not done because of insurance IMPRESSION: 1. History of DVT (deep vein thrombosis) 2. History of pulmonary embolism Patient is a 69-year-old man who has multiple medical issues including some mental health issues, patient has significant lumbar radiculopathy, underwent surgery few months ago and post surgery patient presented with saddle pulmonary emboli and right lower extremity DVT, patient also has history ofprovoked venous thrombosis in 2007 when he did anticoagulation appropriately for 6 months. Clearly this episode is also provoked phenomena. I explained patient and his in detail about differencebetween provoked thromboembolism versus unprovoked, I told them since it is a provoked phenomena, his risk of recurrence is a small as long as he is active enough, I would recommend 4 to 6 months of a nticoagulation and at that time if he is not active I would recommend to continue anticoagulation may be lower dose anticoagulation like keeping INR conservatively around 2 rather than 3. I discussedwith patient and his about his limited coagulopathy workup which is unremarkable and since patient's both episodes of venous thrombosis were provoked, there is an option that he can go on prophylactic dose versus discontinue anticoagulation but if he discontinue anticoagulation I would strongly recommend he should have extensive coagulopathy workup and if it is negative then he will be safe for to continue without anticoagulation. Patient will think about these option PLAN: Continue warfarin for now Return to office as needed Ranjana Sandoval MD CAT scan documented in this encounter Plan of Treatment Not on file documented as of this encounter Visit Diagnoses Diagnosis History of DVT (deep vein thrombosis)- Primary History of pulmonary embolism Personal history of venous thrombosis and embolism documented in this encounter Historical Medications * This list may reflect changes made after this encounter. traMADoL (ULTRAM) 50 mg tablet 0 Refills, Maintenance, 04/29/24 1:42:00 PM EDT, Partial fill upon patient request if the prescription is for a schedule II opioid drug. 04/29/2024 added in this encounter Care Teams Charge Account Clerk Relationship Specialty Start Date End Date Bonilla Grant DO [address], [place] PCP - General Family Medicine 03/10/24 documented as of this encounter
== END 2024-06-19 11:23 | disposition home or self-care (01) ==
LOC: HO.PMC 10:46
PROVIDERS: PCP Family Medicine; Visit Provider Anesthesiology
DX: G89.4 Chronic pain syndrome (principal); M47.816 Spondylosis without myelopathy or radiculopathy, lumbar region; Z97.8 Presence of other specified devices
CPT/HCPCS: 99024

== ENCOUNTER → 2024-06-19 10:46 | Outpatient (BNVA) | payer MEDICARE, MEDICAID, SELFPAY | PROVIDERS: PCP Family Medicine; Visit Provider Anesthesiology | DX: G89.4 Chronic pain syndrome (principal); M47.816 Spondylosis without myelopathy or radiculopathy, lumbar region; Z97.8 Presence of other specified devices; Z79.891 Long term (current) use of opiate analgesic | CPT/HCPCS: 99212 ==

== ENCOUNTER 2024-07-29 06:02 | Inpatient (IN) | payer MEDICARE, OTHER, SELFPAY ==
[2024-07-15 12:23] VITALS: BP 112/62; PULSE 60; RESP 20; O2SAT 98; BMI 29.0
--- NOTE | 2024-07-15 12:41 | P.CONAN_ITS ---
Documented by User: Amber Weaver NP 07/21/24 13:17 HPI - Anesthesia Eval Consult details Narrative: 69yo M for Catheter Removal,and Spinal Fluid Leak repair, Explant/Removal Intrathecal Drug Delivery Implant s/p Revision Intrathecal Drug Implant 04/2024 with GA-LMA 4 s/p L1-2 Laminotomy and Intrathecal Drug Delivery Implant 01/2024 with GA-ETT 7.5 s/p attempted Intrathecal Drug Delivery Implant 07/2023 with GA-LMA 5 02/2024 PE and RLE DVT - [facility] [place], bilat PE tx'd to [facility] and underwent aspiration thrombectomy with improvement in PASP and hemodynamics per PCP post-discharge f/u. No pulmo f/u necessary per discharge summary On coumadin Per pt's , shante (Dr Miller) ok'd holding coumadin until post op. Follows [facility]. Per last office visit, limited coagulopathy work up unremarkable Afib: 1 x r/t drug allergy ROSS: No cpap use d/t intolerance/pain GERD: ppi mostly covers Neurogenic bladder: Self caths PMFSH Active Problems Active Problems: All Active Problems Presence of intrathecal pump (Acute) Malfunction of intrathecal infusion pump (Acute) CSF leak (Acute) Cervicalgia (Acute) Chronic pain syndrome (Acute) Spinal cord stimulator dysfunction (Acute) Spinal stenosis of lumbar region with radiculopathy (Acute) Epidural lipomatosis (Acute) Muscle spasm (Acute) Osteoarthritis of hips, bilateral (Acute) Sacroiliac joint pain (Acute) Bilateral lumbar radiculopathy (Acute) Spondylosis of lumbar spine (Acute) Bilateral hip pain (Acute) Spondylolisthesis (Acute) Past Medical History Medical History Acute respiratory failure Pulmonary embolus LAU (dyspnea on exertion) ROSS (obstructive sleep apnea) Arthritis Hiatal hernia Anxiety Depression Elevated cholesterol Atrial fibrillation Self-catheterizes urinary bladder Disorder of sacroiliac joint Lumbar spinal stenosis Thyroid disease GERD (gastroesophageal reflux disease) Cognitive disorder Back pain Bladder atony Osteoarthritis of hips, bilateral Hypothyroidism Hyperlipidemia Bipolar 1 disorder DVT (deep venous thrombosis) Lynette's thyroiditis Sacroiliac joint pain Bilateral lumbar radiculopathy Spondylosis of lumbar spine Bilateral hip pain Spondylolisthesis Family History Family history of problems with anesthesia: No Surgical History Surgical History History of surgery Previous back surgery History of hand surgery History of esophagogastroduodenoscopy (EGD) (~10/2023) Hx of umbilical hernia repair Hx of colonoscopy History of Problems with Anesthesia: No Social History Social History Household Members: Spouse Housing: House Are you a primary clinical manager home care to a significant other at home: No Do you presently have visiting nurse or other home services: No Comment: COUNTS CORRECT Patient Tobacco Use Status: Never used Tobacco e-Cigarette/Vaping Use: Never Used Use of substances other than those prescribed or required for medical reasons: No Have you been hit, kicked, punched, or otherwise hurt by someone within the past year? If so, by whom?: No Spiritual Healthcare Practices: no Anabaptist Healthcare Practices: no Cultural Healthcare Practices: no Are you DNR?: No Advance Directives Information Provided: Yes (as above noted) Advance Directives on File: No Poor oral hygiene: No Meds Allergies Allergy/AdvReac Type Severity Reaction Status Date / Time oxycodone AdvReac Severe vertigo Verified 07/29/24 06:16 sulfamethoxazole AdvReac Severe AFIB Verified 07/29/24 06:16 [From Bactrim] trimethoprim [From Bactrim] AdvReac Severe AFIB Verified 07/29/24 06:16 Home Medications ?Medication ?Instructions ?Recorded ?Confirmed ?Last Taken ?Type carbamazepine 200 mg tablet 400 mg PO BEDTIME 05/27/21 07/15/24 Unknown History (Tegretol) duloxetine 30 mg capsule,delayed 30 mg PO BEDTIME 05/27/21 07/15/24 Unknown History release duloxetine 60 mg capsule,delayed 60 mg PO BEDTIME 05/27/21 07/15/24 Unknown History release levothyroxine 50 mcg tablet 50 mcg PO DAILY 05/27/21 07/15/24 07/29/24 History metoprolol tartrate 25 mg tablet 25 mg PO BID 05/27/21 07/15/24 07/29/24 History pantoprazole 40 mg tablet,delayed 40 mg PO BID 05/27/21 07/15/24 07/29/24 History release topiramate 25 mg tablet 25 mg PO BID 05/27/21 07/15/24 01/18/24 History acetaminophen 500 mg capsule 1,000 mg PO Q6H PRN Pain 10/12/23 07/15/24 Unknown History atorvastatin 20 mg tablet 20 mg PO BEDTIME 10/12/23 07/15/24 Unknown History cranberry extract 500 mg capsule 1,500 mg PO DAILY 10/12/23 07/15/24 Unknown History (Cranberry Concentrate) d-mannose 500 mg capsule 500 mg PO DAILY 10/12/23 07/15/24 Unknown History warfarin 5 mg tablet 5 mg PO DAILY 03/05/24 07/15/24 07/23/24 History Exam Height,Weight and Vital Signs: Height 5 ft 7 in Weight 83.915 kg Last Vital Signs Pulse 60 07/15/24 12:23 Resp 20 07/15/24 12:23 BP 112/62 07/15/24 12:23 Pulse Ox 98 07/15/24 12:23 O2 Del Method Room Air 07/15/24 12:23 Pertinent Lab Results Pertinent Lab Results: Laboratory Tests 02/28/24 12:40 WBC 10.6 Hgb 14.6 Hct 44.3 Plt Count 169 Sodium 140 Potassium 4.4 Chloride 111 H Carbon Dioxide 22 BUN 20 H Creatinine 1.29 Narrative Narrative: EKG 02/2024 Vent. Rate : 105 BPM Atrial Rate : 105 BPM P-R Int : 198 ms QRS Dur : 86 ms QT Int : 332 ms P-R-T Axes : 44 108 40 degrees QTcB Int : 438 ms Sinus tachycardia Rightward axis Low voltage QRS Borderline ECG When compared with ECG of 12-Oct-2023 13:11, Vent. rate has increased by 43 bpm QRS axis Shifted right Airway Mallampati Class: II TM Dist: <=3cm Neck ROM: Full Loose/Missing/Broken Teeth: Yes (missing) and Upper Assessment and Plan Assessment Anesthesia Assessment: Chart Reviewed Final Anesthetic Review Family History of Problems with Anesthesia: No History of Problems with Anesthesia: No Documented by User: Vaibhav Ramirez MD 07/29/24 07:29 [facility] Past Medical History Medical History Acute respiratory failure Pulmonary embolus LAU (dyspnea on exertion) ROSS (obstructive sleep apnea) Arthritis Hiatal hernia Anxiety Depression Elevated cholesterol Atrial fibrillation Self-catheterizes urinary bladder Disorder of sacroiliac joint Lumbar spinal stenosis Thyroid disease GERD (gastroesophageal reflux disease) Cognitive disorder Back pain Bladder atony Osteoarthritis of hips, bilateral Hypothyroidism Hyperlipidemia Bipolar 1 disorder DVT (deep venous thrombosis) Lynette's thyroiditis Sacroiliac joint pain Bilateral lumbar radiculopathy Spondylosis of lumbar spine Bilateral hip pain Spondylolisthesis Functional capacity: independent ambulation Surgical History Surgical History History of surgery Previous back surgery History of hand surgery History of esophagogastroduodenoscopy (EGD) (~10/2023) Hx of umbilical hernia repair Hx of colonoscopy Social History Social History Household Members: Spouse Housing: House Are you a primary clinical manager home care to a significant other at home: No Do you presently have visiting nurse or other home services: No Comment: COUNTS CORRECT Patient Tobacco Use Status: Never used Tobacco e-Cigarette/Vaping Use: Never Used Use of substances other than those prescribed or required for medical reasons: No Have you been hit, kicked, punched, or otherwise hurt by someone within the past year? If so, by whom?: No Spiritual Healthcare Practices: no Anabaptist Healthcare Practices: no Cultural Healthcare Practices: no Are you DNR?: No Advance Directives Information Provided: Yes (as above noted) Advance Directives on File: No Poor oral hygiene: No Meds Allergies Allergy/AdvReac Type Severity Reaction Status Date / Time oxycodone AdvReac Severe vertigo Verified 07/29/24 06:16 sulfamethoxazole AdvReac Severe AFIB Verified 07/29/24 06:16 [From Bactrim] trimethoprim [From Bactrim] AdvReac Severe AFIB Verified 07/29/24 06:16 Home Medications ?Medication ?Instructions ?Recorded ?Confirmed ?Last Taken ?Type carbamazepine 200 mg tablet 400 mg PO BEDTIME 05/27/21 07/15/24 Unknown History (Tegretol) duloxetine 30 mg capsule,delayed 30 mg PO BEDTIME 05/27/21 07/15/24 Unknown History release duloxetine 60 mg capsule,delayed 60 mg PO BEDTIME 05/27/21 07/15/24 Unknown History release levothyroxine 50 mcg tablet 50 mcg PO DAILY 05/27/21 07/15/24 07/29/24 History metoprolol tartrate 25 mg tablet 25 mg PO BID 05/27/21 07/15/24 07/29/24 History pantoprazole 40 mg tablet,delayed 40 mg PO BID 05/27/21 07/15/24 07/29/24 History release topiramate 25 mg tablet 25 mg PO BID 05/27/21 07/15/24 01/18/24 History acetaminophen 500 mg capsule 1,000 mg PO Q6H PRN Pain 10/12/23 07/15/24 Unknown History atorvastatin 20 mg tablet 20 mg PO BEDTIME 10/12/23 07/15/24 Unknown History cranberry extract 500 mg capsule 1,500 mg PO DAILY 10/12/23 07/15/24 Unknown History (Cranberry Concentrate) d-mannose 500 mg capsule 500 mg PO DAILY 10/12/23 07/15/24 Unknown History warfarin 5 mg tablet 5 mg PO DAILY 03/05/24 07/15/24 07/23/24 History Exam Exam Date and Time: Airway Heart: rrr Assessment and Plan Assessment Anesthesia Assessment: Anesthesia Plan Discussed Final Anesthetic Review ASA Class: III Final Preanesthetic Review: No Changes in Pt Med Stat, Meds/Allgs Chart Reviewed, Consent Obtained/Reviewed and Anes Risks/Benef Reviewed Patient Risk: Intermediate Procedure Risk: Intermediate Anesthetic Plan Anesthetic Plan: GA Disposition: Standard PACU
[2024-07-29] VITALS (12 sets, daily range): BP systolic 86–156; BP diastolic 48–90; PULSE 68–102; RESP 12–18; TEMP 36.1–37.1; O2SAT 94–99
--- OUTSIDE RECORDS SUMMARY | 2024-07-29 06:08 | XMS_ITS | Clinical Summary ---
Author Organization [facility] Address [address] [place] [address] Care Team Providers Care Health And Safety Instructor Name Role Phone Bonilla Grant MD Primary Care Provider [phone] Allergies Active Allergy Reactions Criticality Noted Date [...] Passive Smoke Exposure: Never Smokeless Tobacco: Never [facility] [employer] Answer Date Recorded In the past 12 months has [employer], gas, oil, or water [employer] threatened to shut off services in your [...] any time in the past 12 [address] [facility] [place], were you homeless or living in a care home (including now)? No 02/29/2024 Sex and [...] 7:40 PM 02/28/2024 8:48 PM Care Teams Health And Safety Instructor Relationship Specialty Start Date End Date Bonilla Grant MD [address] [place] [address] PCP - General Psychiatry, General 02/28/24
[2024-07-29] MEDS: Lactated Ringers 1,000 ML 100 ML IVCONT (06:27)
[2024-07-29] MEDS: methocarbamoL 750 MG TABLET PO (06:42)
[2024-07-29 06:56] LABS: Prothrombin Time 11.6 SEC (10.9-12.4)
--- NOTE | 2024-07-29 07:02 | MHC.SHP ---
Pre-Procedural Eval Section A - 24 Hr Update-Section A only Date of Service: 07/29/24 The patient is an INPATIENT: No Changes since office visit: No Cold of Flu in the past 2 weeks, No New Medical Problems, No Changes in Medication and No Patient answered all questions The patient has been examined within 24 hours of the surgical procedure. The History & Physical has been completed within 30 days and I have reviewed it.: No Section B - Complete if H&P > 30 days Chief Complaint: S/P Removal Intrathecal Drug Delivery Implant Etc Allergies: Allergies Allergy/AdvReac Type Severity Reaction Status Date / Time oxycodone AdvReac Severe vertigo Verified 07/29/24 06:16 sulfamethoxazole AdvReac Severe AFIB Verified 07/29/24 06:16 [From Bactrim] trimethoprim [From Bactrim] AdvReac Severe AFIB Verified 07/29/24 06:16 Review of Systems Sugical H&P ROS: Negative: Constitution, Cardiovascular, Respiratory, Neurological, Psychiatric, Hem-Onc, Allergic/Immunologic, Gastrointestinal, Genitourinary, Musculoskeletal, Integumentary, Endocrine and Eyes/Ears/Nose/Throat Exam Surgical H&P Exam: Normal: HEENT, Normal: Heart, Normal: Lungs, Normal: Extremities, Normal: Abdomen, Normal: Skin and Normal: Neurological (awake, alert,oriented x 3 ) Plan Diagnosis/Plan: Unchanged Removal of pain pump and repair of CSF leak Time Spent With Patient Time: Total time managing care of this patient today __5__ minutes.
--- NOTE | 2024-07-29 07:21 | PHA.MEDREC ---
Pharmacy Consult ? Medication Reconciliation Pharmacy has reviewed the medication reconciliation done by RN. Utilized claims.
[2024-07-29] MEDS: ceFAZolin Sodium/Dextrose,Iso 2 GM/50 ML PIGGYBACK IV ×3 (07:30→22:06)
--- NOTE | 2024-07-29 09:13 | P.OP_ITS ---
Operative Note Operative Note Date of Service: 07/29/24 Narrative: Preoperative Diagnosis: Pseudomeningocele following pain pump placement Postoperative diagnosis: Same Operation: Removal of pain pump and closure of spinal fluid leak/repair pseudomeningocele Consent Informed Consent was obtained for this operation. I have explained the nature, purpose and benefits of the operation. I have discussed the risks and benefit of the operation including possible complications or adverse events with patient/family. Alternative(s) were discussed with the patient with their relative benefits and risks as well as the consequences of not accepting the operation were included in obtaining consent. Surgeon: GRACE SLADE MD, PHD Co Surgeon: Napoleon Lim MD Description of Procedure This 68-year-old male is suffering from chronic pain syndrome. He underwent a pain pump insertion on 01/18/2024. He developed a large fluid collection 2 months postoperatively, which we tried to surgically repair. He continues to produce subcutaneous collections, being spinal fluid. We decided to remove the pain pump and to repair the pseudomeningocele/CSF leak. The procedure complications were explained. The patient was consented. The patient was brought to the operating room and endotracheally intubated. The patient was turned in prone position on the Vivek frame. Prep and drape was done followed by timeout. The previous midline incision over the L1-L2 interspace was opened and im mediately large quantities of spinal fluid leak released. The catheter was exposed and followed to its intradural origin. In the meantime, expose the pain pump and removed it. He will dictate the procedure in his separate note. I focused on the repair of the spinal fluid leak. The microscope was brought in. The intra dural catheter was removed which left a 1- 2 mm opening in the dura. A 6 0 Prolene was used and I was able to put a suture to reduce the puncture hole even further. Then a piece of DuraGen was laid over the defect which was then covered with Tisseel. Valsalva maneuver showed no active spinal fluid leak. I agree finalize the surrounding tissues and close the incision in 4 layers with a running nylon for the skin. Estimated Blood Loss (ml): 40 mL Complications: None Duration of Surgery: 90 min Postoperative Plan: Admit to floor for bedrest. Flanagan catheter placed at the end of the procedure
--- NOTE | 2024-07-29 09:33 | PM.OP ---
Brief Operative Note Date of Service: 07/29/24 Pre-op diagnosis: CSF leakinto subcutaneous tissues and the pain pump subcutaneous pocket. Post-op diagnosis: same Procedure: removal of the intrathecal catheter, repair of the dura matter and removal of the intrathecal pain pump. Surgeon: Napoleon Lim MD Anesthesia: GETA Was an Filter Cloth Maker used for this Procedure?: No Estimated blood loss (mL): 50 Pathology: none sent Condition: stable Disposition: PACU
--- NOTE | 2024-07-29 09:35 | W.PM.OPN ---
Operative Note Operative Note Date of Service: 07/29/24 Narrative: Removal of the intrathecal pain pump, removal of the intrathecal catheter, repair of a dural defectRoel Esteban is very pleasant 69 years old gentleman who is suffering from intractable lower back pain for which he was inserted intrathecal pain pump. Unfortunately postoperative condition of the pain pump surgery complicated with CSF leak. The attempt of the repair of the CSF leak while intrathecal catheter in place was not successful. Today he came to the operating room to remove the intrathecal catheter, intrathecal pain pump and closure of the dural defect. Informed consent was thoroughly explained to the patient, risks and benefits were explained. The patient was brought to the operating room and positioned supine in the stretcher. ASA monitors were applied general anesthesia was induced and patient was intubated. After that the patient was transferred to the neurosurgical frame table with all pressure points protected. The lower back of the patient was prepped with ChloraPrep and draped with full body sterile drape including Ioban film. Dr. Velasco started to work on the mid back incision the procedure on the removal of the intrathecal catheter and repair of the dural defect see in the note of the Dr. Feldman. Meanwhile the local anesthetic was infiltrated alongside the previous incision in the left upper buttock of the patient. The incision 10 cm long horizontal was made alongside the previous incision and thorough hemostasis was obtained. After the incision went into the pain pump pocket copious amount of CSF started to flow doubt from the pain pump pocket. It was carefully suctioned. After that the pain pump was located in the pocket, anchoring sutures were severed, and the device was delivered to the level of the skin. Intrathecal catheter was removed from the midline wound, delivered into the area of the pain pump pocket wound and intrathecal catheter and intrathecal pain pump were removed from the patient's body EN mass. After that the connective tissues comprising the capsule of the pain pump pocket were excised, thorough hemostasis was performed, the pain pump pocket was closed using 2 layers of Polysorb 0-0 sutures, the level of the skin was approximated using 2-0 Polysorb sutures. After that eyad were applied to the level of the skin. Sterile dressing using 4x4s and Medipore tape were applied to the patient's back. After that patient was transferred supine on the stretcher, deep extubation was performed, and patient was transferred stable to PACU. The admission into the neurosurgery unit is planned for observation and flat bed positioned.
[2024-07-29] MEDS: 0.9 % Sodium Chloride 1,000 ML 75 ML IVCONT (10:55)
[2024-07-29] MEDS: Docusate Sodium 100 MG CAPSULE PO ×2 (13:02→20:02)
[2024-07-29] MEDS: Acetaminophen 1,000 MG/100 ML PIGGYBACK 400 MG IV ×2 (13:04→20:02)
[2024-07-29] MEDS: HYDROmorphone HCl 2 MG TABLET 1 MG PO ×2 (15:51→20:00)
[2024-07-29] MEDS: carBAMazepine 200 MG TABLET 400 MG PO (20:01)
[2024-07-29] MEDS: Atorvastatin Calcium 20 MG TABLET PO (20:02)
[2024-07-29] MEDS: Gabapentin 300 MG CAPSULE PO (20:02)
[2024-07-29] MEDS: Omeprazole 20 MG CAPSULE.DR PO (20:02)
[2024-07-29] MEDS: DULoxetine HCl 60 MG CAPSULE.DR PO (20:02)
[2024-07-29] MEDS: Metoprolol Tartrate 25 MG TABLET PO (20:02)
[2024-07-29] MEDS: DULoxetine HCl 30 MG CAPSULE.DR PO (20:02)
[2024-07-29] MEDS: Topiramate 25 MG TABLET PO (20:04)
[2024-07-29] MEDS: diphenhydrAMINE HCL 25 MG CAPSULE PO (22:29)
[2024-07-30] VITALS (7 sets, daily range): BP systolic 115–151; BP diastolic 68–78; PULSE 73–84; RESP 16–18; TEMP 36.2–36.7; O2SAT 98–99
[2024-07-30] MEDS: 0.9 % Sodium Chloride 1,000 ML 75 ML IVCONT ×2 (00:09→12:15)
[2024-07-30] MEDS: Acetaminophen 1,000 MG/100 ML PIGGYBACK 400 MG IV ×4 (01:04→20:17)
[2024-07-30] MEDS: HYDROmorphone HCl 2 MG TABLET PO ×4 (01:09→18:23)
[2024-07-30] MEDS: ceFAZolin Sodium/Dextrose,Iso 2 GM/50 ML PIGGYBACK IV (02:54)
[2024-07-30] MEDS: Cyclobenzaprine HCl 10 MG TABLET PO (03:01)
[2024-07-30] MEDS: Omeprazole 20 MG CAPSULE.DR PO ×2 (06:10→18:23)
--- NOTE | 2024-07-30 07:02 | HO.NEUROPN_ITS ---
Neurosurgery Operative Note Date of Service: 07/30/24 Narrative: Operation: Inspection of pain pump integrity and attempted closure of periventricular spinal fluid leak Carlito is a pleasant 69 year old male who underwent spinal fluid leak secondary to pain pump insertion with Dr. Feldman yesterday. To recap the patient had a pain pump inserted on 01/18/2024, and somewhere down the road he developed increasing swelling predominantly around the pump area, which was determined to be CSF. Preoperatively he denied any headaches nausea or vomiting. Today he was seen lying in bed with HOB flat on 3-S. He has a tello in place. He has been tolerating his current diet. He reports he still has some low back pain but is otherwise doing well. Afebrile, vitals signs stable. On examination he has 5/5 strength in his bilateral lower extremities. His back dressings are dry with some staining and no signs of hematoma / leakage. Pleasant 69 year old male who underwent spinal fluid leak secondary to pain pump insertion with Dr. Feldman yesterday. We would like to try and raise his HOB today to 40 degrees and see if he tolerates this. His tello should remain in for the time being as he is on bedrest. He should continue to use incentive spirometer q1h at minimum as he is not up OOB ambulating to inflate the lungs. We will check back in with him later this afternoon to ensure he tolerates the HOB change. Jericho Feldman MD,PhD [facility]
--- NOTE | 2024-07-30 07:53 | HO.POSTANES ---
Post Anesthesia Evaluation Post Anesthesia Evaluation Date of Service: 07/30/24 Vital Signs: Vital Signs Temp Pulse Resp BP Pulse Ox O2 Del Method O2 Flow Rate 07/30/24 02:20 97.7 F 77 18 151/73 H 98 Nasal Cannula 2 07/29/24 19:58 97.8 F 100 18 143/90 H 99 Nasal Cannula 2 Anesthesia: General Endotracheal-GETA Mental Status: Awake Pain Control: Satisfactory (pain appears comfortable at bedside. sees pain specialist on regular basis and didn't sleep well complaining of pain. specialist to be contacted today for pain management) Nausea/Vomiting: None Hydration: Adequate Anesthesia-Related Issues: No Anes. Related Issues
[2024-07-30] MEDS: Topiramate 25 MG TABLET PO ×2 (09:04→21:13)
[2024-07-30] MEDS: Metoprolol Tartrate 25 MG TABLET PO ×2 (09:04→21:12)
[2024-07-30] MEDS: Docusate Sodium 100 MG CAPSULE PO ×2 (09:04→21:14)
[2024-07-30] MEDS: Levothyroxine Sodium 50 MCG TABLET PO (09:04)
--- NOTE | 2024-07-30 10:36 | MHC.CM.PN ---
IMM DELIVERED PT LIVES WITH SPOUSE AND IS FUNCTIONALLY INDEPENDENT. NO SERVICES OR DME. + HCP, PT STATES HIS HAS A COPY AT HOME AND DECLINES TO COMPLETE A NEW ONE. PCP DR. ABHISHEK LEVINE DP: HOME, NO SERVICES IS THE GOAL. PT'S WILL TRANSPORT. CM WILL CONTINUE TO FOLLOW FOR ANY CHANGE TO DC PLAN/NEEDS.
[2024-07-30] MEDS: DULoxetine HCl 60 MG CAPSULE.DR PO (21:12)
[2024-07-30] MEDS: DULoxetine HCl 30 MG CAPSULE.DR PO (21:12)
[2024-07-30] MEDS: Gabapentin 300 MG CAPSULE PO (21:13)
[2024-07-30] MEDS: carBAMazepine 200 MG TABLET 400 MG PO (21:13)
[2024-07-30] MEDS: Atorvastatin Calcium 20 MG TABLET PO (21:14)
[2024-07-31] MEDS: HYDROmorphone HCl 2 MG TABLET 1 MG PO (00:15)
[2024-07-31] MEDS: Acetaminophen 1,000 MG/100 ML PIGGYBACK 400 MG IV ×2 (01:47→07:41)
[2024-07-31] MEDS: 0.9 % Sodium Chloride 1,000 ML 75 ML IVCONT (01:49)
[2024-07-31 06:00] VITALS: BP 124/68; PULSE 77; RESP 18; TEMP 36.3; O2SAT 96
[2024-07-31] MEDS: HYDROmorphone HCl 2 MG TABLET PO (06:39)
[2024-07-31] MEDS: Omeprazole 20 MG CAPSULE.DR PO (06:39)
[2024-07-31] MEDS: Topiramate 25 MG TABLET PO (07:40)
[2024-07-31] MEDS: Docusate Sodium 100 MG CAPSULE PO (07:40)
[2024-07-31] MEDS: Levothyroxine Sodium 50 MCG TABLET PO (07:41)
[2024-07-31 07:51] VITALS: BP 122/73; PULSE 77
[2024-07-31] MEDS: Metoprolol Tartrate 25 MG TABLET PO (07:51)
[2024-07-31 07:53] VITALS: BP 122/73; PULSE 77; RESP 20; TEMP 36.6; O2SAT 97
--- NOTE | 2024-07-31 08:55 | P.DS_ITS ---
DS: Providers Provider Date of Service: 07/31/24 Date of admission: 07/29/24 06:02 Date of discharge: 07/31/24 Primary care physician: Bonilla Grant DO DS: Summary Time Attestation Discharge Coordination Time (in mins): 12 Quality: Safe Use of Opioids Does Pt have an Active Cancer Diagnosis on the Problem List?: No Quality: Stroke Does the patient have a stroke diagnosis?: No Physical Exam Vital Signs: Vital Signs: Last Vital Signs Temp 97.8 F 07/31/24 07:53 Pulse 77 07/31/24 07:53 Resp 20 07/31/24 07:53 BP 122/73 07/31/24 07:53 Pulse Ox 97 07/31/24 07:53 O2 Del Method Room Air 07/31/24 07:53 O2 Flow Rate 2 07/31/24 06:00 BMI result Body Mass Index 29.0 Discharge Plan Discharge Anticipated Discharge Date/Time: 07/31/24 08:55 Patient Disposition: Home, Self-Care Discharge Diagnosis: s/p Removal of pain pump and closure of spinal fluid leak/repair Referrals: Bonilla Grant DO [Primary Care Provider, Internal Medicine] - 1 Week Discharge Medications: Continued gabapentin 300 mg capsule 300 mg PO BEDTIME 90 Days Qty: 90 0RF buprenorphine 7.5 mcg/hour patch weekly 1 patch transdermal QWEEK 28 Days Qty: 4 1RF Patient Comments: left shoulder acetaminophen 500 mg Capsule 1,000 mg PO Q6H PRN (Reason: Pain) atorvastatin 20 mg tablet 20 mg PO BEDTIME cranberry extract [Cranberry Concentrate] 500 mg Capsule 1,500 mg PO DAILY Rx Instructions: administer with meals d-mannose 500 mg Capsule 500 mg PO DAILY duloxetine 60 mg capsule,delayed release(DR/EC) 60 mg PO BEDTIME duloxetine 30 mg capsule,delayed release(DR/EC) 30 mg PO BEDTIME metoprolol tartrate 25 mg tablet 25 mg PO BID pantoprazole 40 mg tablet,delayed release (DR/EC) 40 mg PO BID levothyroxine 50 mcg tablet 50 mcg PO DAILY Rx Instructions: takes 1/2 tab Saturdays & Sundays topiramate 25 mg tablet 25 mg PO BID carbamazepine [Tegretol] 200 mg tablet 400 mg PO BEDTIME cyclobenzaprine 10 mg tablet 10 mg PO BEDTIME PRN (Reason: for muscle spasm) 90 Days Qty: 90 2RF warfarin 5 mg tablet 5 mg PO DAILY Rx Instructions: daily except 1/2 tab on Sunday naloxone 4 mg/actuation spray,non-aerosol 4 mg intranasal Q2M PRN (Reason: opioid overdose) 1 Days Qty: 2 8RF Rx Instructions: spray 1 dose into ONE nostril; alternate nostrils w each dose until help arrives Held tramadol 50 mg tablet 50 mg PO Q6H PRN (Reason: pain) 7 Days Qty: 28 0RF Hold Instructions: Resume on 08/01/24. Discuss with pain management provider before restarting Discharge Orders: Discharge Order (Routine); Ordered 07/31/24 Ordered By: Jericho Eckert Diet: Advance to usual diet Activity on Discharge: As tolerated Stand Alone Forms: Patient Portal Discharge page Print Language: Malian Activity Restrictions/Additional Instructions: After your spinal surgery we ask you to observe the following restrictions/guidelines: Activity: It is normal to feel some discomfort as you increase your activity, but that will improve with time. We ask you avoid heavy lifting or acitivities that cause pain. As a general rule, 8lbs is a safe limit for lifting right after surgery. Walk as much as you feel comfortable but not to exhaustion. You will feel extra tired the first few days after surgery. Stay well hydrated. It is OK to walk up and down stairs You may return to driving when you are off narcotics (such as vicodin, oxycodone, dilaudid, etc), and you are back to normal functional capacity. If you have any concerns please check with office before driving. Return to work is specific to each patient and each surgery, so please speak with your doctor/PA at first follow up. Please bring paperwork such as FMLA at that time if you need it filled out. Medications: Please discuss postoperative pain control with your pain management provider. Continue pain control as directed by them. You may continue taking your blood thinner Coumadin (Warfarin). We recommend you take 1,000mg Tylenol every 8 hours for the first few weeks after surgery, if you do not have any liver issues and can tolerate this medication. Do not exceed 4,000mg daily. We will give you a short supply of narcotics after surgery (usually one weeks worth). If you need more please call the office but do not use more than prescribed. You will need to give our office 48 hours notice if you need narcotics refilled and we do not fill narcotics on weekends or evenings. If you are on a narcotic, it is a good idea to take a stool softener such as colace or senna to avoid constipation If you take blood thinner such as aspirin, Plavix, Coumadin, Effient, Eliquis etc for conditions such as Afib, DVT, Pulmonary embolus, coronary disease, stents etc please speak with your surgeon about specific details as to when you can resume these medications. You can resume NSAIDs on post op day 1 (eg: Motrin, Naproxen, etc). Follow up: Please call the office, , after surgery to arrange a 3 week follow up for wound check. Wound Care: You may remove your dressing on the first day after surgery. ?You may ?leave open to air. Please do not remove the steri strips underneath. they will fall off on their own in one week. IT IS NORMAL FOR THE WOUND TO OOZE OR BE BLOODY FOR A FEW DAYS AFTER SURGERY. ?IF THIS HAPPENS JUST PLACE NEW DRESSING OVER IT TO AVOID STAINING CLOTHES. You may shower on post op day # 1 We ask that you do not let the water soak the wound. If it does get wet, just towel dry lightly. Please do not scrub your incision or place any type of chemical/ointment on the wound. No tub baths, pools or jacuzzis for one month. If you have any leaking or redness from your wound, or fevers, please call the office. Care Plan Goals: Return to normal activity as tolerated Health Concerns: None Plan of Treatment: Follow-up in clinic in 2-3 weeks Assessment: Operation: Inspection of pain pump integrity and attempted closure of periventricular spinal fluid leak POD: 2 Carlito is a pleasant 69 year old male who underwent spinal fluid leak secondary to pain pump insertion with Dr. Feldman 2 days ago. To recap the patient had a pain pump inserted on 01/18/2024, and somewhere down the road he developed increasing swelling predominantly around the pump area, which was determined to be CSF. He has tolerated HOB advancement and denied any headaches, dizziness, nausea or vomiting, even when mobilizing with PT today. Today he was seen sitting up in bed on 3-S. He still has a tello in place. He has been tolerating his current diet. He continues to report mild low back pain but is otherwise doing well. Afebrile, vitals signs stable. On examination he has 5/5 strength in his bilateral lower extremities. His back dressings are dry with some staining and no signs of hematoma / leakage. Pleasant 69 year old male who underwent spinal fluid leak secondary to pain pump insertion with Dr. Feldman 2 days ago. He has tolerated HOB advancement and ambulation with PT. He still has a tello in place which needs to be removed before DC. He has a neurogenic bladder and uses a straight catheter to void at home. He will need to discuss further at home pain control with his primary pain management team. Currently he has prescribed buprenorphine patches. Jericho Feldman MD,PhD [facility]
--- NOTE | 2024-07-31 09:03 | HO.NEURO.PN ---
Neurosurgery Operative Note Date of Service: 07/31/24 Narrative: Operation: Inspection of pain pump integrity and attempted closure of periventricular spinal fluid leak POD: 2 Carlito is a pleasant 69 year old male who underwent spinal fluid leak secondary to pain pump insertion with Dr. Feldman 2 days ago. To recap the patient had a pain pump inserted on 01/18/2024, and somewhere down the road he developed increasing swelling predominantly around the pump area, which was determined to be CSF. He has tolerated HOB advancement and denied any headaches, dizziness, nausea or vomiting, even when mobilizing with PT today. Today he was seen sitting up in bed on 3-S. He still has a tello in place. He has been tolerating his current diet. He continues to report mild low back pain but is otherwise doing well. Afebrile, vitals signs stable. On examination he has 5/5 strength in his bilateral lower extremities. His back dressings are dry with some staining and no signs of hematoma / leakage. Pleasant 69 year old male who underwent spinal fluid leak secondary to pain pump insertion with Dr. Feldman 2 days ago. He has tolerated HOB advancement and ambulation with PT. He still has a tello in place which needs to be removed before DC. He has a neurogenic bladder and uses a straight catheter to void at home. He will need to discuss further at home pain control with his primary pain management team. Currently he has prescribed buprenorphine patches. Jericho Feldman MD,PhD [facility]
--- NOTE | 2024-07-31 09:48 | W.MHC.F2F ---
Service Date Service Date: 07/31/24 Encounter Date of encounter: 07/31/24 Reasons for Services Signs and symptoms assessed: s/p intrathecal drug pump removal and repair spinal fluid leak Reason for physical therapy: home safety and mobility, therapeutic exercises, gait/transfer training and ADL training Homebound: Leaving the home is medically contraindicated at this time without the asist of a device and/or another person due th the listed conditions above and below. Reason homebound: unsteady gait / fall risk, pain with ambulation, poor balance / fall risk and weakness related to hospital stay Certification: Based on the above findings, I certify that this patient is confined to the home and needs intermittent retirement care, physical therapy and/or speech therapy, or continues to need occupational therapy. The patient is under my care, and I have initiated the establishment of the plan of care. The patient will be followed by a physician who will periodically review the plan of care. Time Spent With Patient Time: Total time managing care of this patient today _12___ minutes.
--- NOTE | 2024-07-31 10:29 | MHC.CM.PN ---
Addendum entered by Tarsha Long 07/31/24 10:39: DP: [facility]PT[facility] SERVICES. PT AGREEABLE TO PLAN Original Note: dDP: PT HAS BEEN MEDICALLY CLEARED FOR DC HOME WITH NEW [facility] FOR P[facility]T. BROAD REFERRALS SENT FOR CONTRACTED AGENCIES, AWAITING RESPONSES. PT UPDATED. [facility] WILL TRANSPORT.
[2024-07-31 11:40] VITALS: BP 110/70; PULSE 80; RESP 18; TEMP 36.9; O2SAT 97
== END 2024-07-31 12:04 | disposition home or self-care (01) | DRG 29 ==
LOC: HO.SSSA 06:06 → HO.S3 10:27
PROVIDERS: Anesthesiology; Neurological Surgery; Nurse Practitioner; Admitting Provider Physician Assistant; PCP Family Medicine; Visit Provider Physician Assistant
PROC: 00UT0JZ Supplement Spinal Meninges with Synthetic Substitute, Open Approach (ICD-10-PCS; principal; 2024-07-29 07:30)
PROC: 00PU03Z Removal of Infusion Device from Spinal Canal, Open Approach (ICD-10-PCS; 2024-07-29 07:30)
DX: T85.695A Other mechanical complication of other nervous system device, implant or graft, initial encounter (principal); G96.00 Cerebrospinal fluid leak, unspecified; Y82.8 Other medical devices associated with adverse incidents; E06.3 Autoimmune thyroiditis; G47.33 Obstructive sleep apnea (adult) (pediatric); G89.4 Chronic pain syndrome; Z79.01 Long term (current) use of anticoagulants; Z79.890 Hormone replacement therapy; Z79.899 Other long term (current) drug therapy
CPT/HCPCS: 36415; 85610; 97161; A4649; C1763; C9250; J0131; J0690; J1100; J2003; J2250; J2405; J2704; J3010

== ENCOUNTER → 2024-07-29 06:02 | Outpatient (BNV) | payer MEDICARE, SELFPAY | PROVIDERS: Admitting Provider Physician Assistant; PCP Family Medicine; Visit Provider Anesthesiology | DX: G96.198 Other disorders of meninges, not elsewhere classified (principal) | CPT/HCPCS: 62355; 62365 ==

== ENCOUNTER → 2024-07-29 06:02 | Outpatient (BNV) | payer MEDICARE, SELFPAY | PROVIDERS: Admitting Provider Physician Assistant; PCP Family Medicine; Visit Provider Neurological Surgery | DX: G96.198 Other disorders of meninges, not elsewhere classified (principal) | CPT/HCPCS: 63709; 99024 ==

== ENCOUNTER 2024-08-13 15:19 | Outpatient (AMB) | payer MEDICARE, SELFPAY ==
--- OUTSIDE RECORDS SUMMARY | 2024-08-12 23:59 | XMS_ITS | Continuity of Care Document ---
Author Organization [facility] Address [address] [place] [address]- Care Team Providers Care Technology Analyst Name Role Phone Óscar OLEARY, Holger Primary Care Physician [id number] Date(s): 08/05/24 - 08/12/24 [facility] [address] [place] [id number]- Encounter Diagnosis Right leg swelling(Discharge Diagnosis) - 08/05/24 Chronic back pain(Discharge Diagnosis) - 08/05/24 Attending Physician: Holger Cantrell MD Encounter Type: Office Visit Allergies, Adverse Reactions, Alerts Substance Criticality Severity Reaction Reaction Severity Status Bactrim Active oxyCODONE vertigo Active OxyCONTIN Vertigo Active Immunizations Given and Recorded Vaccine Date [...] tablet, By Mouth, Daily, # 90 tablet, 0 Refills, Maintenance, 05/26/24 6:25:00 AM EDT, [facility] #[id number], 170.1, cm, 04/29/24 13:34:00 EDT, Height, 82.5, kg, 11/05/23 9:56:00 EDT, Dry Weight Start Date: 05/26/24 Status: Ordered Quantity: 90.0 Unit: tablet Repeat number: 1 buprenorphine 7.5 mcg/hr transdermal film, extended release See Instructions, 1 patch weekly, 0 Refills, Maintenance, 08/05/24 11:26:00 AM EDT, Partial fill upon patient request if the prescription is for a schedule II opioid drug. Start Date: 08/05/24 Status: Ordered Repeat number: 1 Carbamazepine Tablet 200 mg, two tablets at PM, Maintenance, 06/11/12 3:33:53 AM EDT Start Date: 06/11/12 Status: Ordered Repeat number: 1 D- Mannose 2000mg D- Mannose 2000mg, See Instructions, Refills 0, Tot. Refills 0, Maintenance, 08/05/24 11:33:00 AM EDT, Supply Start Date: 08/05/24 Status: Ordered Repeat number: 1 duloxetine 30 [...] 60 mg oral enteric coated capsule 1 capsule = 60 mg, By Mouth, Daily, take together with the 30 mg, # 30 capsule, 0 Refills, Maintenance, 08/05/24 11:24:00 AM EDT, EC Capsule, Partial fill upon patient request if the prescription is for a schedule II opioid drug. Start Date: 08/05/24 Status: Ordered Quantity: 30.0 Unit: capsule Repeat number: 1 famotidine 20 mg oral tablet 20 mg, 1, tablet, By Mouth, 2 times a day, PRN, # 60 tablet, Refills 6, Tot. Refills 6, Maintenance, breakthrough GERD, 10/29/23 1:44:00 PM EDT, Route to Pharmacy Electronically, [facility] # [id number], Partial fill upon patient request if the prescription is for a schedule II opioid drug., 170.1, cm, 10/29/23 13:21:00 EDT, Height Start Date: 10/29/23 Status: Ordered Quantity: 60.0 Unit: tablet Repeat number: 7 Indications: Gastro-esophageal reflux disease without esophagitis; gabapentin 300 mg oral capsule 300 mg, 1, capsule, By Mouth, Daily at bedtime, Refills 0, Maintenance, 07/16/23 12:51:00 PM EDT, Partial fill upon patient request if the prescription is for a schedule II opioid drug. Start Date: 07/16/23 Status: Ordered Repeat number: 1 levothyroxine 0.05 mg oral tablet 1 tablet, By Mouth, Daily, # 90 tablet, 0 Refills, Maintenance, 07/25/24 4:45:00 PM EDT, [facility] #[id number], 170.1, cm, 04/29/24 13:34:00 EDT, Height, 82.5, kg, 11/05/23 9:56:00 EDT, Dry Weight Start Date: 07/25/24 Status: Ordered Quantity: 90.0 Unit: tablet Repeat number: 1 Metoprolol Tartrate 25 mg oral tablet 1 tablet, By Mouth, 2 times a day, # 180 tablet, 1 Refills, Maintenance, 10/20/23 11:52:00 AM EDT, [facility] #[id number], 170.1, cm, 09/26/23 10:33:00 EDT, Height Start Date: 10/20/23 Status: Ordered Quantity: 180.0 Unit: tablet Repeat number: 1 pantoprazole 40 mg oral delayed release tablet 1 tablet, By Mouth, 2 times a day, # 60 tablet, 3 Refills, Maintenance, 04/29/24 12:19:00 PM EDT, 170.1, cm, 04/14/24 15:11:00 EST, Height, 82.5, kg, 11/05/23 9:56:00 EDT, Dry Weight Start Date: 04/29/24 Status: Ordered Quantity: 60.0 Unit: tablet Repeat number: 1 topiramate 25 mg oral tablet 2 tablet, By Mouth, Daily, # 180 tablet, 1 Refills, Maintenance, 06/28/24 10:08:00 PM EDT, [facility] #[id number], 170.1, cm, 04/29/24 13:34:00 EDT, Height, 82.5, kg, 11/05/23 9:56:00 EDT, Dry Weight Start Date: 06/28/24 Status: Ordered Quantity: 180.0 Unit: tablet Repeat number: 1 Tylenol 8 Hour Caplet = 1,300 mg, By Mouth, Every 8 hours, 0 Refills, Maintenance, 11/04/20 9:34:00 AM EDT, Partial fill upon patient request if the prescription is for a schedule II opioid drug. Start Date: 11/04/20 Status: Ordered Repeat number: 1 warfarin 5 mg oral tablet 1 tablet, By Mouth, Daily, # 90 tablet, 0 Refills, Maintenance, 06/09/24 8:16:00 AM EDT, [facility] #[id number], 170.1, cm, 04/29/24 13:34:00 EDT, Height, 82.5, kg, 11/05/23 9:56:00 EDT, Dry Weight Start Date: 06/09/24 Status: Ordered Quantity: 90.0 Unit: tablet Repeat number: 1 Problem List Condition Confirmation Course Effective Dates Status H ealth Status Informant Chronic back pain Confirmed Active Self-catheterizes urinary bladder Confirmed Active GERD (gastroesophageal reflux disease) Confirmed Active History of pulmonary embolism Confirmed Active Lynette thyroiditis Confirmed Active History of polyp of colon Confirmed Active Hyperlipidemia Confirmed Active Diagnosis Diagnosis Type Effective Dates Health Status Cl inical Service Informant Right leg swelling Discharge Diagnosis 08/05/24 Chronic back pain Discharge Diagnosis 08/05/24 Social History Social History Type Response Smoking Status Never (less than 100 in lifetime) entered on: 08/05/24 Sex Sex Representation Male (finding) Note * Ana Mena: PERFORM Event Display: Patient Education/Instruction Authored Date: [id number] Ambulatory Adult Visit Summary [facility] [address] [place] [id number] Name: KAREN GORDON : 1955?? Visit: 08/05/2024 11:06?? Ambulatory Visit Instructions ?? Your Care Team Primary Care Provider Holger Cantrell MD? This Visit Provider Holger Cantrell MD Vitals Signs Pulse Rate: 78 bpm Height: 170.1 cm Systolic Blood Pressure: 119 mm Hg Weight: 84.3 kg Diastolic Blood Pressure: 76 mm Hg Body Mass Index:??29.14 kg/m2??High Oxygen Saturation: 98 % Body surface area: 2 What to do next Future Orders INR - Routine, Once, 03/04/24 14:15:00 EST, Within 3 Days, [facility], Blood?? INR - Routine, Once, 03/05/24 3:00:00 EST every 3 days for 12 week(s), Single or Recurring Future Order, [facility], Blood?? Medications The list below reflects the information in our records and provided by you today along with any changes made during this visit. Please continue your medications until treatment is completed or stopped by your provider. If this is different from the information you have or there are other questions,please contact the prescribing provider. What How Much When Why Instructions Changed Duloxetine (duloxetine 30 mg oral enteric coated capsule) 1 capsule Oral Daily Changed Duloxetine (duloxetine 60 mg oral enteric coated capsule) 1 capsule Oral Daily take together with the 30 mg ?? Changed Miscellaneous Rx (D- Mannose 2000mg) See instructions Unchanged Acetaminophen (Tylenol 8 Hour Caplet) 1,300 Milligram Oral Every 8 hours Unchanged Ascorbic Acid (ascorbic acid 500 mg oral tablet) ORAL, TABLET, 0 Refill(s), ?? Unchanged Atorvastatin (atorvastatin 20 mg oral tablet) 1 tab(s) Oral Daily Unchanged Buprenorphine (buprenorphine 7.5 mcg/ hr transdermal film, extended release) See instructions 1 patch weekly ?? Unchanged Carbamazepine (Carbamazepine Tablet) 200 Milligram two tablets at PM ?? Unchanged Famotidine (famotidine 20 mg oral tablet) 1 tab(s) Oral Twice a day as needed for breakthrough GERD GERD (gastroesophageal reflux disease) Unchanged Gabapentin (gabapentin 300 mg oral capsule) 1 capsule Oral Daily at Bedtime Unchanged Levothyroxine (levothyroxine 0.05 mg oral tablet) 1 tab(s) Oral Daily Unchanged Metoprolol (Metoprolol Tartrate 25 mg oral tablet) 1 tab(s) Oral Twice a day Unchanged Pantoprazole (pantoprazole 40 mg oral delayed release tablet) 1 tab(s) Oral Twice a day Unchanged Topiramate (topiramate 25 mg oral tablet) 2 tab(s) Oral Daily Unchanged Warfarin (warfarin 5 mg oral tablet) 1 tab(s) Oral Daily ?? What How Much When Comments Stop Taking Enoxaparin (Lovenox 120 mg/ 0.8 mL injectable solution) Seeinstructions Inject the contents of 1 syringe subcutaneously once daily as directed by the coumadin clinic. ?? Stop Taking Hydromorphone (HYDROmorphone 2 mg oral tablet) 1 tab(s) Stop Taking Tramadol (traMADol 50 mg oral tablet) Medications and Immunizations Administered Medications Given During Visit No medications given during this visit.?? Allergies (NKA means No Known Allergies) Bactrim OxyCONTIN??(Vertigo) oxyCODONE??(vertigo) Common Emergency Awareness Tips IS IT A STROKE? Act FAST and Check for these signs: FACE Does the face look uneven? ARM Does one arm drift down? SPEECH Does their speech sound strange? TIME Call at any sign of stroke ?? Heart Attack Signs Chest discomfort: Most heart attacks involve discomfort in the center of the chest and lasts more than a few minutes, or goes away and comes back. It can feel like uncomfortable pressure, squeezing, fullness or pain. Discomfort in upper body: Symptoms can include pain or discomfort in one or both arms, back, neck, jaw or stomach. Shortness of breath: With or without discomfort. Other signs: Breaking out in a cold sweat, nausea, or lightheaded. Remember, MINUTES DO MATTER. If you experience any of these heart attack warning signs, call to get immediate medical attention! ?? Smoking can increase your chances of developing chronic health problems and can cause harmful effects to other family members in your house. If you smoke, you are strongly encouraged to quit. Please call [employer] Link at [phone] or 1-566-806[employer] (2229) or log in to [email or web address] for referrals to smoking cessation programs. ?? The National Suicide Prevention Hotline is available 04/09 if you or someone you know needs to find a reason to keep living. By calling 7-037-220-[facility] (0706) you'll be connected to a skilled, trained counselor at a crisis center in your area. [facility] [employer] Portal You can view and manage your care through the patient portal or by using a health care hannah of your choosing. [email or web address] is a website that allows you to securely view your medical information including your hospital discharge summary, office visit summaries, medications and follow-up visits. You can also request appointments, renew medications, and request access to your medical information using a health care hannah of your choosing, or just ask a question. You can enroll at [email or web address] or register during your next office visit. [facility], in keeping with [facility] guidance, no longer requires face masks for staff, patientsor visitors in most situations. Similiar to time spent indoors at other locations, there is the chance that you were exposed to repiratory viruses during your time with us (such as flu or COVID-19). If you develop symptoms concerning for a viral respiratory infection, please seek testing (and treatment if indicated) from your medical provider or home test kit. ?? Disclaimer: The information provided is of a general nature and is intended to be used in conjunction with the recommendations and advice of your health care practitioner. Every effort has been made to ensure that the information provided is accurate and complete at the time it is provided to you however, as your needs change, or, as new information becomes available, different or additional instructions may be required. ?? If you have questions, please consult with your primary care provider or pharmacist, as appropriate. This information is not intended to serve as substitution for assessment and evaluation by a qualified health care provider. If you do not have a primary care provider, you may find a [facility] provider by calling [facility] Link at [phone]. Patient Care team information Care Team Personnel Name: Marissa Ashton RN Position: [facility] RN Member Role: Primary Care Nurse Name: Holger Cantrell MD Position: [facility] Physician - Primary Care Member Role: PCP Address: [address] [place] [id number] Telecom: Care Team Related Persons Name: SALLIE GORDON Insurance Providers Guarantor name: KAREN GORDON Health Plan Information #: 1 Payer: [employer] PPO Payer Identifier: NA Member Number: [id number] Group Number: [id number] Subscriber Identifier: [id number] Relationship to Subscriber: self Coverage Type: Medicare PPO Coverage Verification Date: NA Telecom: NA Address: NA
--- OUTSIDE RECORDS SUMMARY | 2024-08-13 15:32 | XMS_ITS | Clinical Summary ---
Author Organization Formerly [facility] Address [address] [place] [address] Care Team Providers Care Flower Picker Name Role Phone Bonilla Grant MD Primary Care Provider [phone] Allergies Active Allergy Reactions Criticality Noted Date [...] Passive Smoke Exposure: Never Smokeless Tobacco: Never [facility] Answer Date Recorded In the past 12 months has [place], gas, oil, or water Contractually threatened to shut off services in your [...] any time in the past 12 m [facility], were you homeless or living in a snf (including now)? No 02/29/2024 Sex and Gender [...] 84 03/04/2024 9:30 AM EST Temperature 36.2 C (97.2 F) 03/04/2024 5:00 AM EST Respiratory Rate 18 03/04/2024 5:00 AM EST [...] Vaccine (1 of 2) 04/24/2007 COVID-19 Vaccine ( - 2023-2 5 season) 2023 Influenza Vaccine 09/12/2024 RSV [...] 7:40 PM 02/28/2024 8:48 PM Care Teams Flower Picker Relationship Specialty Start Date End Date Bonilla Grant MD [address] [place] [address] PCP - General Psychiatry, General 02/28/24
--- OUTSIDE RECORDS SUMMARY | 2024-08-13 15:33 | XMS_ITS ---
Author Name [facility] Organization Unknown Results Test Name/Text Value Interpretation Date Range Source Anion Gap Bld-sCnc 13.0 Normal 03/04/2024 7 - 17 HHCCT CO2 SerPl-sCnc 25.0 mmol/L Normal 03/04/2024 22 - 33 HH CCT Creat SerPl-mCnc 1.3 mg/dL Normal 03/04/2024 0.5 - 1.3 HH CCT BUN SerPl-mCnc 16.0 mg/dL Normal 03/04/2024 8 - [address] Sodium SerPl-sCnc 140.0 mmol/L Normal 03/04/2024 136 - 14 5 HHCCT GFR/BSA.pred SerPlBld [id number] 61.0 Normal 03/04/2024 59 - HHCCT Glucose SerPl-mCnc 92.0 mg/dL Normal 03/04/2024 65 - 99 HHCCT Chloride SerPl-sCnc 102.0 mmol/L Normal 03/04/2024 98 - 1 07 HHCCT Calcium SerPl-mCnc 9.1 mg/dL Normal 03/04/2024 8.7 - 10.5 HHCCT BUN/Creat SerPl 12.0 Ratio Normal 03/04/2024 10 - 25 HH CCT Potassium SerPl-sCnc 4.6 mmol/L Normal 03/04/2024 3.4 - 5 .3 HHCCT pro BNP, N-terminal 296.0 pg/mL Above high normal 03/04/2024 - 125 HHCCT Anion Gap Bld-sCnc 10.0 Normal 03/04/2024 7 - 17 HHCCT Potassium SerPl-sCnc 5.0 mmol/L Normal 03/04/2024 3.4 - 5 .3 HHCCT Glucose SerPl-mCnc 113.0 mg/dL Above high normal 03/04/2024 65 - 99 HHCCT CO2 SerPl-sCnc 24.0 mmol/L Normal 03/04/2024 22 - 33 HH CCT GFR/BSA.pred SerPlBld UKZ-[id number]-[id number] 55.0 Below low normal 03/04/2024 59 - HHCCT Creat SerPl-mCnc 1.4 mg/dL Above high normal 03/04/2024 0.5 - 1.3 HHCCT Sodium SerPl-sCnc 141.0 mmol/L Normal 03/04/2024 136 - 14 5 HHCCT BUN/Creat SerPl 12.0 Ratio Normal 03/04/2024 10 - 25 HH CCT Calcium SerPl-mCnc 9.4 mg/dL Normal 03/04/2024 8.7 - 10.5 HHCCT BUN SerPl-mCnc 17.0 mg/dL Normal 03/04/2024 8 - [address] Chloride SerPl-sCnc 107.0 mmol/L Normal 03/04/2024 98 - 1 07 HHCCT Magnesium SerPl-mCnc 2.0 mg/dL Normal 03/04/2024 1.6 - 2. 7 HHCCT Phosphate SerPl-mCnc 3.1 mg/dL Normal 03/04/2024 2.7 - 4. 5 HHCCT INR PPP 2.4 Normal 03/04/2024 HHCCT Prothrombin time 27.7 seconds Above high normal 03/04/2024 1 0 - 13.5 HHCCT Anticoagulant WARFARIN (COUMADIN) Normal 03/04/2024 HHCCT PMV Bld Auto 10.4 fL Normal 03/04/2024 7.5 - 12.5 HHCCT Hct VFr Bld Auto 37.1 % Below low normal 03/04/2024 39 - 54 HHCCT WBC num Bld Auto 5.8 Thou/uL Normal 03/04/2024 4 - 11 HHCCT MCH RBC Qn Auto 31.7 pg Above high normal 03/04/2024 27 - 31 HHCCT MCV RBC Auto 97.0 fL Normal 03/04/2024 80 - 100 HHCCT RDW RBC Auto-Rto 13.2 % Normal 03/04/2024 11.5 - 14.5 HHCCT Platelet num Bld Auto 153.0 Thou/uL Normal 03/04/2024 150 - 450 HHCCT RBC num Bld Auto 3.82 Mil/uL Below low normal 03/04/2024 4.5 - 6.2 HHCCT MCHC RBC Auto-mCnc 32.6 g/dL Normal 03/04/2024 30 - 36 HHCCT Hgb Bld-mCnc 12.1 g/dL Below low normal 03/04/2024 13 - 17.7 HHCCT Creat SerPl-mCnc 1.4 mg/dL Above high normal 03/03/2024 0.5 - 1.3 HHCCT Chloride SerPl-sCnc 103.0 mmol/L Normal 03/03/2024 98 - 1 07 HHCCT CO2 SerPl-sCnc 23.0 mmol/L Normal 03/03/2024 22 - 33 HH CCT Potassium SerPl-sCnc 4.3 mmol/L Normal 03/03/2024 3.4 - 5 .3 HHCCT Anion Gap Bld-sCnc 13.0 Normal 03/03/2024 7 - 17 HHCCT Glucose SerPl-mCnc 151.0 mg/dL Above high normal 03/03/2024 65 - 99 HHCCT Calcium SerPl-mCnc 9.0 mg/dL Normal 03/03/2024 8.7 - 10.5 HHCCT Sodium SerPl-sCnc 139.0 mmol/L Normal 03/03/2024 136 - 14 5 HHCCT BUN SerPl-mCnc 15.0 mg/dL Normal 03/03/2024 8 - [address] GFR/BSA.pred SerPlBld HCR-LZG-TlKPac 55.0 Below low normal 03/03/2024 59 - HHCCT BUN/Creat SerPl 11.0 Ratio Normal 03/03/2024 10 - 25 HH CCT Magnesium SerPl-mCnc 1.8 mg/dL Normal 03/03/2024 1.6 - 2. 7 HHCCT Phosphate SerPl-mCnc 3.0 mg/dL Normal 03/03/2024 2.7 - 4. 5 HHCCT INR PPP 2.4 Normal 03/03/2024 HHCCT Prothrombin time 27.3 seconds Above high normal 03/03/2024 1 0 - 13.5 HHCCT Anticoagulant WARFARIN (COUMADIN) Normal 03/03/2024 HHCCT RBC num Bld Auto 3.89 Mil/uL Below low normal 03/03/2024 4.5 - 6.2 HHCCT MCV RBC Auto 99.0 fL Normal 03/03/2024 80 - 100 HHCCT Hgb Bld-mCnc 12.3 g/dL Below low normal 03/03/2024 13 - 17.7 HHCCT RDW RBC Auto-Rto 13.2 % Normal 03/03/2024 11.5 - 14.5 HHCCT MCH RBC Qn Auto 31.6 pg Above high normal 03/03/2024 27 - 31 HHCCT Hct VFr Bld Auto 38.4 % Below low normal 03/03/2024 39 - 54 HHCCT MCHC RBC Auto-mCnc 32.0 g/dL Normal 03/03/2024 30 - 36 HHCCT PMV Bld Auto 10.2 fL Normal 03/03/2024 7.5 - 12.5 HHCCT WBC num Bld Auto 8.3 Thou/uL Normal 03/03/2024 4 - 11 HHCCT Platelet num Bld Auto 168.0 Thou/uL Normal 03/03/2024 150 - 450 HHCCT Prothrombin time 13.7 seconds Above high normal 03/02/2024 1 0 - 13.5 HHCCT INR PPP 1.2 Normal 03/02/2024 HHCCT Anticoagulant WARFARIN (COUMADIN) Normal 03/02/2024 HHCCT Phosphate SerPl-mCnc 2.7 mg/dL Normal 03/02/2024 2.7 - 4. 5 HHCCT Magnesium SerPl-mCnc 1.8 mg/dL Normal 03/02/2024 1.6 - 2. 7 HHCCT Creat SerPl-mCnc 1.3 mg/dL Normal 03/02/2024 0.5 - 1.3 HH CCT Anion Gap Bld-sCnc 13.0 Normal 03/02/2024 7 - 17 HHCCT BUN SerPl-mCnc 19.0 mg/dL Normal 03/02/2024 8 - [address] Sodium SerPl-sCnc 139.0 mmol/L Normal 03/02/2024 136 - 14 5 HHCCT GFR/BSA.pred SerPlBld RGC-XIE-JpWRod 61.0 Normal 03/02/2024 59 - HHCCT Chloride SerPl-sCnc 107.0 mmol/L Normal 03/02/2024 98 - 1 07 HHCCT CO2 SerPl-sCnc 19.0 mmol/L Below low normal 03/02/2024 22 - 33 HHCCT Potassium SerPl-sCnc 3.9 mmol/L Normal 03/02/2024 3.4 - 5 .3 HHCCT BUN/Creat SerPl 15.0 Ratio Normal 03/02/2024 10 - 25 HH CCT Glucose SerPl-mCnc 123.0 mg/dL Above high normal 03/02/2024 65 - 99 HHCCT Calcium SerPl-mCnc 8.9 mg/dL Normal 03/02/2024 8.7 - 10.5 HHCCT RDW RBC Auto-Rto 13.2 % Normal 03/02/2024 11.5 - 14.5 HHCCT MCH RBC Qn Auto 31.3 pg Above high normal 03/02/2024 27 - 31 HHCCT Hct VFr Bld Auto 37.6 % Below low normal 03/02/2024 39 - 54 HHCCT PMV Bld Auto 10.0 fL Normal 03/02/2024 7.5 - 12.5 HHCCT Hgb Bld-mCnc 12.2 g/dL Below low normal 03/02/2024 13 - 17.7 HHCCT MCHC RBC Auto-mCnc 32.4 g/dL Normal 03/02/2024 30 - 36 HHCCT MCV RBC Auto 96.0 fL Normal 03/02/2024 80 - 100 HHCCT RBC num Bld Auto 3.9 Mil/uL Below low normal 03/02/2024 4.5 - 6.2 HHCCT WBC num Bld Auto 7.8 Thou/uL Normal 03/02/2024 4 - 11 HHCCT Platelet num Bld Auto 137.0 Thou/uL Below low normal 025 150 - 450 HHCCT Potassium SerPl-sCnc 3.6 mmol/L Normal 03/01/2024 3.4 - 5 .3 HHCCT Anion Gap Bld-sCnc 16.0 Normal 03/01/2024 7 - 17 HHCCT BUN/Creat SerPl 14.0 Ratio Normal 03/01/2024 10 - 25 HH CCT Sodium SerPl-sCnc 145.0 mmol/L Normal 03/01/2024 136 - 14 5 HHCCT Calcium SerPl-mCnc 9.1 mg/dL Normal 03/01/2024 8.7 - 10.5 HHCCT Glucose SerPl-mCnc 127.0 mg/dL Above high normal 03/01/2024 65 - 99 HHCCT CO2 SerPl-sCnc 22.0 mmol/L Normal 03/01/2024 22 - 33 HH CCT Chloride SerPl-sCnc 107.0 mmol/L Normal 03/01/2024 98 - 1 07 HHCCT GFR/BSA.pred SerPlBld GJX-QXG-JgDRnb 61.0 Normal 03/01/2024 59 - HHCCT BUN SerPl-mCnc 18.0 mg/dL Normal 03/01/2024 8 - [address] Creat SerPl-mCnc 1.3 mg/dL Normal 03/01/2024 0.5 - 1.3 HH CCT Phosphate SerPl-mCnc 2.9 mg/dL Normal 03/01/2024 2.7 - 4. 5 HHCCT Magnesium SerPl-mCnc 2.0 mg/dL Normal 03/01/2024 1.6 - 2. 7 HHCCT MCV RBC Auto 96.0 fL Normal 03/01/2024 80 - 100 HHCCT MCHC RBC Auto-mCnc 32.7 g/dL Normal 03/01/2024 30 - 36 HHCCT WBC num Bld Auto 9.9 Thou/uL Normal 03/01/2024 4 - 11 HHCCT Hgb Bld-mCnc 13.3 g/dL Normal 03/01/2024 13 - 17.7 HHCCT MCH RBC Qn Auto 31.5 pg Above high normal 03/01/2024 27 - 31 HHCCT Hct VFr Bld Auto 40.7 % Normal 03/01/2024 39 - 54 HH CCT RBC num Bld Auto 4.22 Mil/uL Below low normal 03/01/2024 4.5 - 6.2 HHCCT PMV Bld Auto 9.9 fL Normal 03/01/2024 7.5 - 12.5 HHCCT RDW RBC Auto-Rto 13.2 % Normal 03/01/2024 11.5 - 14.5 HHCCT Platelet num Bld Auto 163.0 Thou/uL Normal 03/01/2024 150 - 450 HHCCT Prothrombin time 12.5 seconds Normal 03/01/2024 10 - 13.5 HHCCT INR PPP 1.1 Normal 03/01/2024 HHCCT Anticoagulant WARFARIN (COUMADIN) Normal 03/01/2024 HHCCT Magnesium SerPl-mCnc 2.3 mg/dL Normal 02/29/2024 1.6 - 2. 7 HHCCT Creat SerPl-mCnc 1.0 mg/dL Normal 02/29/2024 0.5 - 1.3 HH CCT Potassium SerPl-sCnc 3.9 mmol/L Normal 02/29/2024 3.4 - 5 .3 HHCCT Glucose SerPl-mCnc 108.0 mg/dL Above high normal 02/29/2024 65 - 99 HHCCT GFR/BSA.pred SerPlBld ULR-KSZ-UbMDbg 83.0 Normal 02/29/2024 59 - HHCCT BUN/Creat SerPl 15.0 Ratio Normal 02/29/2024 10 - 25 HH CCT Chloride SerPl-sCnc 111.0 mmol/L Above high normal 98 - 107 HHCCT BUN SerPl-mCnc 15.0 mg/dL Normal 02/29/2024 8 - [address] CO2 SerPl-sCnc 18.0 mmol/L Below low normal 02/29/2024 22 - 33 HHCCT Anion Gap Bld-sCnc 12.0 Normal 02/29/2024 7 - 17 HHCCT Sodium SerPl-sCnc 141.0 mmol/L Normal 02/29/2024 136 - 14 5 HHCCT Calcium SerPl-mCnc 8.3 mg/dL Below low normal 02/29/2024 8.7 - 10.5 HHCCT Phosphate SerPl-mCnc 2.5 mg/dL Below low normal 02/29/2024 2 .7 - 4.5 HHCCT WBC num Bld Auto 9.5 Thou/uL Normal 02/29/2024 4 - 11 HHCCT MCV RBC Auto 97.0 fL Normal 02/29/2024 80 - 100 HHCCT RBC num Bld Auto 3.46 Mil/uL Below low normal 02/29/2024 4.5 - 6.2 HHCCT MCHC RBC Auto-mCnc 32.6 g/dL Normal 02/29/2024 30 - 36 HHCCT Hct VFr Bld Auto 33.7 % Below low normal 02/29/2024 39 - 54 HHCCT PMV Bld Auto 9.7 fL Normal 02/29/2024 7.5 - 12.5 HHCCT MCH RBC Qn Auto 31.8 pg Above high normal 02/29/2024 27 - 31 HHCCT Hgb Bld-mCnc 11.0 g/dL Below low normal 02/29/2024 13 - 17.7 HHCCT RDW RBC Auto-Rto 13.5 % Normal 02/29/2024 11.5 - 14.5 HHCCT Platelet num Bld Auto 119.0 Thou/uL Below low normal 025 150 - 450 HHCCT Delta 53.0 Above high normal 02/29/2024 - 3 H HCCT Troponin T SerPl-mCnc 211.0 ng/L Critically high 02/29/2024 - 23 HHCCT Lactate SerPl-sCnc 1.7 mmol/L Normal 02/29/2024 0.5 - 1.9 HHCCT Troponin T SerPl-mCnc 302.0 ng/L Critically high 02/29/2024 - HHCCT Delta 38.0 Above high normal 02/29/2024 - 3 H HCCT Magnesium SerPl-mCnc 1.7 mg/dL Normal 02/29/2024 1.6 - 2. 7 HHCCT Chloride SerPl-sCnc 107.0 mmol/L Normal 02/29/2024 98 - 1 07 HHCCT Anion Gap Bld-sCnc 13.0 Normal 02/29/2024 7 - 17 HHCCT BUN SerPl-mCnc 15.0 mg/dL Normal 02/29/2024 8 - [address] Glucose SerPl-mCnc 114.0 mg/dL Above high normal 02/29/2024 65 - 99 HHCCT Sodium SerPl-sCnc 138.0 mmol/L Normal 02/29/2024 136 - 14 5 HHCCT Calcium SerPl-mCnc 8.9 mg/dL Normal 02/29/2024 8.7 - 10.5 HHCCT Creat SerPl-mCnc 1.1 mg/dL Normal 02/29/2024 0.5 - 1.3 HH CCT GFR/BSA.pred SerPlBld ZZG-VSH-NiAZkn 74.0 Normal 02/29/2024 59 - HHCCT CO2 SerPl-sCnc 18.0 mmol/L Below low normal 02/29/2024 22 - 33 HHCCT BUN/Creat SerPl 14.0 Ratio Normal 02/29/2024 10 - 25 HH CCT Potassium SerPl-sCnc 3.9 mmol/L Normal 02/29/2024 3.4 - 5 .3 HHCCT Phosphate SerPl-mCnc 2.0 mg/dL Below low normal 02/29/2024 2 .7 - 4.5 HHCCT Lactate SerPl-sCnc 2.6 mmol/L Above high normal 02/29/2024 0 .5 - 1.9 HHCCT INR PPP 1.2 Normal 02/29/2024 HHCCT Prothrombin time 13.5 seconds Normal 02/29/2024 10 - 13.5 HHCCT Anticoagulant OTHER AGENT OR UNKNOWN Normal 02/29/2024 HHCCT aPTT PPP 60.0 seconds Above high normal 02/29/2024 25 - 36 HHCCT Anticoagulant OTHER AGENT OR UNKNOWN Normal 02/29/2024 HHCCT RBC num Bld Auto 3.99 Mil/uL Below low normal 02/29/2024 4.5 - 6.2 HHCCT MCHC RBC Auto-mCnc 32.3 g/dL Normal 02/29/2024 30 - 36 HHCCT Platelet num Bld Auto 141.0 Thou/uL Below low normal 025 150 - 450 HHCCT Hgb Bld-mCnc 12.4 g/dL Below low normal 02/29/2024 13 - 17.7 HHCCT MCH RBC Qn Auto 31.1 pg Above high normal 02/29/2024 27 - 31 HHCCT MCV RBC Auto 96.0 fL Normal 02/29/2024 80 - 100 HHCCT WBC num Bld Auto 13.9 Thou/uL Above high normal 02/29/2024 4 - 11 HHCCT Hct VFr Bld Auto 38.4 % Below low normal 02/29/2024 39 - 54 HHCCT RDW RBC Auto-Rto 13.2 % Normal 02/29/2024 11.5 - 14.5 HHCCT PMV Bld Auto 9.6 fL Normal 02/29/2024 7.5 - 12.5 HHCCT POC Glucose 121.0 mg/dL Above high normal 02/29/2024 65 - 99 HHCCT Magnesium SerPl-mCnc 2.0 mg/dL Normal 02/28/2024 1.6 - 2. 7 HHCCT Delta NO PREVIOUS RESULT Normal 02/28/2024 - 3 HHCCT Troponin T SerPl-mCnc 264.0 ng/L Critically high 02/28/2024 - 23 HHCCT GFR/BSA.pred SerPlBld CIJ-LNQ-KnUOlz 74.0 Normal 02/28/2024 59 - HHCCT Potassium SerPl-sCnc 4.6 mmol/L Normal 02/28/2024 3.4 - 5 .3 HHCCT BUN SerPl-mCnc 18.0 mg/dL Normal 02/28/2024 8 - [address] Calcium SerPl-mCnc 9.6 mg/dL Normal 02/28/2024 8.7 - 10.5 HHCCT BUN/Creat SerPl 16.0 Ratio Normal 02/28/2024 10 - 25 HH CCT CO2 SerPl-sCnc 20.0 mmol/L Below low normal 02/28/2024 22 - 33 HHCCT Glucose SerPl-mCnc 98.0 mg/dL Normal 02/28/2024 65 - 99 HHCCT Sodium SerPl-sCnc 141.0 mmol/L Normal 02/28/2024 136 - 14 5 HHCCT Chloride SerPl-sCnc 108.0 mmol/L Above high normal 98 - 107 HHCCT Creat SerPl-mCnc 1.1 mg/dL Normal 02/28/2024 0.5 - 1.3 HH CCT Anion Gap Bld-sCnc 13.0 Normal 02/28/2024 7 - 17 HHCCT Bilirub SerPl-mCnc 0.3 mg/dL Normal 02/28/2024 0.2 - 1 HHCCT Albumin/Glob SerPl 1.1 Ratio Normal 02/28/2024 1 - 3 HHCCT ALT SerPl-cCnc 30.0 U/L Normal 02/28/2024 10 - 55 HHCC T Globulin Ser Calc-mCnc 3.6 g/dL Normal 02/28/2024 1.5 - 3.9 HHCCT Albumin SerPl-mCnc 3.9 g/dL Normal 02/28/2024 3.4 - 4.8 HHCCT Bilirub Direct SerPl-mCnc <0.1 mg/dL Normal 02/28/2024 0 - 0.2 HHCCT Prot SerPl-mCnc 7.5 g/dL Normal 02/28/2024 6.3 - 8.[address] AST SerPl-cCnc 28.0 U/L Normal 02/28/2024 10 - 55 HHCC T ALP SerPl-cCnc 134.0 U/L Above high normal 02/28/2024 45 - 1 28 HHCCT pro BNP, N-terminal 180.0 pg/mL Above high normal 02/28/2024 - 125 HHCCT INR PPP 1.1 Normal 02/28/2024 HHCCT Prothrombin time 12.5 seconds Normal 02/28/2024 10 - 13.5 HHCCT Anticoagulant NO ANTI COAGULANT MEDS Normal 02/28/2024 HHCCT Platelet num Bld Auto 144.0 Thou/uL Below low normal 025 150 - 450 HHCCT MCHC RBC Auto-mCnc 32.6 g/dL Normal 02/28/2024 30 - 36 HHCCT Hgb Bld-mCnc 13.6 g/dL Normal 02/28/2024 13 - 17.7 HHCCT WBC num Bld Auto 12.5 Thou/uL Above high normal 02/28/2024 4 - 11 HHCCT Lymphocytes/leuk NFr Bld Auto 14.7 % Normal 02/28/2024 HHCCT Monocytes/leuk NFr Bld Auto 6.3 % Normal 02/28/2024 HHCCT Eosinophil num Bld Auto 0.06 Thou/uL Normal 02/28/2024 0 - 0.7 HHCCT Monocytes num Bld Auto 0.79 Thou/uL Normal 02/28/2024 0.2 - 1.5 HHCCT Hct VFr Bld Auto 41.7 % Normal 02/28/2024 39 - 54 HH CCT Imm Granulocytes/leuk NFr Bld Auto 1.8 % Normal 02/28/2024 HHCCT RDW RBC Auto-Rto 13.2 % Normal 02/28/2024 11.5 - 14.5 HHCCT Neutrophils/leuk NFr Bld Auto 76.5 % Normal 02/28/2024 HHCCT Basophils/leuk NFr Bld Auto 0.2 % Normal 02/28/2024 HHCCT Lymphocytes num Bld Auto 1.84 Thou/uL Normal 02/28/2024 1.5 - 4.5 HHCCT MCV RBC Auto 97.0 fL Normal 02/28/2024 80 - 100 HHCCT Neutrophils num Bld Auto 9.6 Thou/uL Above high normal 02/28/2024 2 - 7.5 HHCCT Imm Granulocytes num Bld Auto 0.22 Thou/uL Above high normal 02/28/2024 0 - 0.1 HHCCT MCH RBC Qn Auto 31.5 pg Above high normal 02/28/2024 27 - 31 HHCCT RBC num Bld Auto 4.32 Mil/uL Below low normal 02/28/2024 4.5 - 6.2 HHCCT Basophils num Bld Auto 0.02 Thou/uL Normal 02/28/2024 0 - 0.2 HHCCT Eosinophil/leuk NFr Bld Auto 0.5 % Normal 02/28/2024 HHCCT PMV Bld Auto 9.8 fL Normal 02/28/2024 7.5 - 12.5 HHCCT POC Glucose 96.0 mg/dL Normal 02/28/2024 65 - 99 HHCCT Lactate SerPl-sCnc 2.4 mmol/L Above high normal 02/28/2024 0 .5 - 1.9 HHCCT Encounters Encounter Type Encounter Reason Primary Diagnosis Location Date Inpatient Other pulmonary embolism without acute cor pulmonale Other pulmonary embolism without acute cor pulmonale [facility] 02/28/2024 Care Team Organization Name Specialty Phone Email Start Date End [facility] 03/18/2024 04/30/2024 [facility] 02/28/2024 [facility] 02/28/2024
[2024-08-13 15:45] VITALS: BP 134/70; PULSE 76; RESP 18; O2SAT 97; BMI 27.4
--- NOTE | 2024-08-13 15:45 | A.OFFVIS_ITS ---
Vital Signs 08/13/24 15:45 Height 5 ft 7 in Weight 175 lb BMI 27.4 BP 134/70 Blood Pressure Location Lt brachial Position Sitting Respiration 18 Pulse 76 Pulse Source Pulse Oximeter Pulse Oximetry (%) 97 Oxygen Delivery Method Room Air Intake Visit Reasons: Pill count Intake Note: pt came in for a patch count of buperenorphine 7.5mcg. Mass Pat said he should have one left. Pt presented with one Allergies oxycodone Adverse Reaction (Severe, Verified 07/29/24 06:16) vertigo sulfamethoxazole (From Bactrim) Adverse Reaction (Severe, Verified 07/29/24 06:16) AFIB trimethoprim (From Bactrim) Adverse Reaction (Severe, Verified 07/29/24 06:16) AFIB HPI Comments Details: Carlito is in the office today after removal of the intrathecal pain pump procedure with repair done by Dr. Feldman of the rent in the patient's dura. He came today and his back was examined. There is no bulging in the area of the midline incision and there is no bulging in the area of the removed pain pump. Unfortunately he is not wearing dressings over the wounds. The wounds are in good condition and yet I told him that he would need to consider very seriously risk of infection, I will move the eyad today but I will leave up to Dr. Feldman to remove the stitches from the midline incision. He also presented today for the fill count. His supposed to have 1 fill on his body and nothing else. He had 1 film applied to his body. He reports good pain relief on buprenorphine 7.5 micro g per hour patch while at rest however he reports more pain when he is active. I decided to increase his buprenorphine dose to 10 micro g hour. I will see him in 6 weeks to perform a film count and a follow- up. The wounds were washed today with ChloraPrep, sterile dressing was applied to midline incision dry dressing and Tegaderm. The eyad on the upper buttock wound were removed, the edges of the wound are competent. It was washed with ChloraPrep and sterile dressing was applied using dry 4x4s and Tegaderm. There is minor indentation on the upper lip of the pocket incision secondary to pocket closure. The patient was possibility of this deformity before the surgery. PRIOR: Carlito developed subcutaneous CSF leak after pain pump implantation. Revision was done on 04/18/2024 where the leak was discovered coming from the laminitomy and catheter insertion site. the duragen and neurosurgical glue were used to close the leak. never-the less expectations were high that the leak would return. Past Procedures: 04/18/2024: revision of the ItDD system 01/18/2024: Implantation of the I DDD with neurosurgical implanted intrathecal catheter via anatomy. 08/10/23: Attempt of ITDD implant-0% pain relief, procedure aborted 05/22/23: ITDD trial with Fentanyl -80% pain relief for 28 hours 04/20/23: Lumbar Nevro SCS trial-30-40% pain relief [facility] Medical History Acute respiratory failure Pulmonary embolus LAU (dyspnea on exertion) ROSS (obstructive sleep apnea) Arthritis Hiatal hernia Anxiety Depression Elevated cholesterol Atrial fibrillation Self-catheterizes urinary bladder Disorder of sacroiliac joint Lumbar spinal stenosis Thyroid disease GERD (gastroesophageal reflux disease) Cognitive disorder Back pain Bladder atony Osteoarthritis of hips, bilateral Hypothyroidism Hyperlipidemia Bipolar 1 disorder DVT (deep venous thrombosis) Lynette's thyroiditis Sacroiliac joint pain Bilateral lumbar radiculopathy Spondylosis of lumbar spine Bilateral hip pain Spondylolisthesis Surgical History History of surgery Previous back surgery History of hand surgery History of esophagogastroduodenoscopy (EGD) (~10/2023) Hx of umbilical hernia repair Hx of colonoscopy Social History Household Members: Spouse and Children Housing: House Are you a primary clinical care coordinator to a significant other at home: No Do you presently have visiting nurse or other home services: No Comment: COUNTS CORRECT Patient Tobacco Use Status: Never used Tobacco e-Cigarette/Vaping Use: Never Used service: No Review of Systems Const All systems reviewed & are unremarkable except as noted in HPI and below Physical Exam Vital Signs: Last Vital Signs Pulse 76 08/13/24 15:45 Resp 18 08/13/24 15:45 BP 134/70 08/13/24 15:45 Pulse Ox 97 08/13/24 15:45 Oxygen Delivery Method Room Air 08/13/24 15:45 BMI result Body Mass Index 27.4 General: Appears afebrile. Alert and oriented. Mood and affect appropriate. Follows and participates in conversation appropriately. Respiratory effort is unlabored. Able to transition from sit to stand unassisted. Ambulates with bilaterally normal heel strike and toe off. General: Yes no CVA tenderness Back/Spine/Pelvis Other: Midline incision wound-No pathological discharge, no swelling and no erythema. the upper buttock incision is also clean, no erythema, no edema, no local tenderness, however deep under the skin both of the incisions exhibits signs of ballottement of the fluid. Back: no CVA tenderness Assessment & Plan Assessment & Plan (1) Spondylolisthesis: Code(s): M43.10 - Spondylolisthesis, site unspecified Category: Medical (2) CSF leak: Code(s): G96.00 - Cerebrospinal fluid leak, unspecified Category: Medical (3) Spondylosis of lumbar spine: Code(s): M47.816 - Spondylosis without myelopathy or radiculopathy, lumbar region Category: Medical (4) Bilateral lumbar radiculopathy: Code(s): M54.16 - Radiculopathy, lumbar region Category: Medical (5) Epidural lipomatosis: Code(s): D17.79 - Benign lipomatous neoplasm of other sites Category: Medical (6) Spinal stenosis of lumbar region with radiculopathy: Code(s): M48.061 - Spinal stenosis, lumbar region without neurogenic claudication; M54.16 - Radiculopathy, lumbar region Category: Medical (7) Spinal cord stimulator dysfunction: Code(s): T85.192A - Other mechanical complication of implanted electronic neurostimulator of spinal cord electrode (lead), initial encounter Category: Medical (8) Malfunction of intrathecal infusion pump: Code(s): T85.615A - Breakdown (mechanical) of other nervous system device, implant or graft, initial encounter Category: Medical Plan The wounds examination see as above. He is doing very well. There is no evidence of continued leak. Buprenorphine film count is correct. I decided to increase his dose of buprenorphine from 7.5 micro g an hour to 10 micro g an hour. I will see him in 6 weeks for film count and I will after that once in 2 months. Medications: New buprenorphine 10 mcg/hour 1 patch transdermal Q7D 4 ea 1RF 28 days Discontinued buprenorphine 7.5 mcg/hour Discontinued Reason: Doctor's Order 1 patch transdermal QWEEK 28 days 4 ea 1RF Patient Instructions: I here by testify that I spent 30 minutes in conversation with this patient as well as planning his care and organizing this note. 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
== END 2024-08-13 15:50 | disposition home or self-care (01) ==
LOC: HO.PMC 15:19
PROVIDERS: PCP Family Medicine; Visit Provider Anesthesiology
DX: M43.10 Spondylolisthesis, site unspecified (principal); G96.00 Cerebrospinal fluid leak, unspecified; M47.816 Spondylosis without myelopathy or radiculopathy, lumbar region; M54.16 Radiculopathy, lumbar region; D17.79 Benign lipomatous neoplasm of other sites; M48.061 Spinal stenosis, lumbar region without neurogenic claudication; T85.192A Other mechanical complication of implanted electronic neurostimulator of spinal cord electrode (lead), initial encounter; T85.615A Breakdown (mechanical) of other nervous system device, implant or graft, initial encounter
CPT/HCPCS: 99214

== ENCOUNTER → 2024-08-13 15:19 | Outpatient (BNVA) | payer MEDICARE, SELFPAY | PROVIDERS: PCP Family Medicine; Visit Provider Anesthesiology | DX: M47.816 Spondylosis without myelopathy or radiculopathy, lumbar region (principal); M43.10 Spondylolisthesis, site unspecified; G96.00 Cerebrospinal fluid leak, unspecified; M54.16 Radiculopathy, lumbar region; D17.79 Benign lipomatous neoplasm of other sites; M48.061 Spinal stenosis, lumbar region without neurogenic claudication; T85.192A Other mechanical complication of implanted electronic neurostimulator of spinal cord electrode (lead), initial encounter; T85.615A Breakdown (mechanical) of other nervous system device, implant or graft, initial encounter | CPT/HCPCS: 99212 ==

== ENCOUNTER 2024-08-20 14:51 | Outpatient (AMB) | payer MEDICARE, SELFPAY ==
--- NOTE | 2024-08-20 15:01 | HO.SPINEOV ---
Intake Visit Reasons: Post Op Intake Note: Mr. Guerrero is here today for his 1st post op. Contact Printer Dry Film Required: No Allergies oxycodone Adverse Reaction (Severe, Verified 08/20/24 15:02) vertigo sulfamethoxazole (From Bactrim) Adverse Reaction (Severe, Verified 08/20/24 15:02) AFIB trimethoprim (From Bactrim) Adverse Reaction (Severe, Verified 08/20/24 15:02) AFIB Assessment & Plan Assessment & Plan (1) CSF leak: Code(s): G96.00 - Cerebrospinal fluid leak, unspecified Category: Medical Plan Procedure: Removal of pain pump and closure of spinal fluid leak/repair pseudomeningocele Carlito is a pleasant 69-year-old male who comes in today for his 1st postoperative visit after Dr. Feldman removed his pain pump and repaired a spinal fluid leak. He has not had any dizziness, headaches, or nausea since his surgery. He overall feels much better than he did prior to surgery. He has not had any significant swelling around the incision site or leakage. To recap his incision was closed with a single running suture. No new neurological deficits. The patient ambulates well and rises from seated position without difficulty. His posterior incision site was closed with a single running suture. I remove this at his clinic visit today. He tolerated the procedure well. There is no need for continued routine follow up with our office for Carlito, he may follow up with Dr. Lim as instructed. Jericho Feldman MD,PhD [facility] Coding Level of Care Code Global (22526) Diagnoses CSF leak G96.00
--- OUTSIDE RECORDS SUMMARY | 2024-08-20 15:19 | XMS_ITS | Clinical Summary ---
Author Organization [facility] Address [address] [place] [address] Care Team Providers Care Disposal Man Name Role Phone Bonilla Grant MD Primary Care Provider [phone] Allergies Active Allergy Reactions Criticality Noted Date [...] Passive Smoke Exposure: Never Smokeless Tobacco: Never [facility] Answer Date Recorded In the past 12 months has [employer], gas, oil, or water [employer] threatened to shut off services in your [...] any time in the past 12 m [facility], were you homeless or living in a detention (including now)? No 02/29/2024 Sex and Gender [...] 7:40 PM 02/28/2024 8:48 PM Care Teams Disposal Man Relationship Specialty Start Date End Date Bonilla Grant MD [address] [place] [address] PCP - General Psychiatry, General 02/28/24
--- OUTSIDE RECORDS SUMMARY | 2024-08-20 15:20 | XMS_ITS | Clinical Summary ---
Author Organization [facility] Address [address] [place] [address] Phone Care Team Providers Care Machine Operator Hop Picker Name Role Phone Bonilla Grant Primary Care Provider [phone] Allergies Active Allergy Reactions Criticality Noted Date Comments Sulfamethoxazole-Trimethopr im 04/07/2024 Other 11/05/2020 Bactrim [Na Benzoate-sulfamethoxazole -trimethoprim Oxycontin [Indigotine-oxycodone Hcl] Oxycodone 11/05/2020 Medications acetaminophen (TYLENOL 8 HOUR ORAL) Take by mouth. Acti ve ascorbic acid (VITAMIN C) 500 mg tablet [...] capsule (300 mg total) by mouth daily. 07/16/19 Active atorvastatin (LIPITOR) 20 mg tablet Take 1 tablet (20 mg total) by mouth daily. 12/07/19 Active metoprolol tartrate (LOPRESSOR) 25 mg tablet 02/10/20 25 Active topiramate (TOPAMAX) 25 mg tablet Take 1 tablet (25 mg total) by mouth 2 times daily. 07/31/19 24 Active apixaban (ELIQUIS) starter pack Take 2 tablets (10 mg total) by mouth 2 (two) times a day for 7 days. Then take 1 tablet (5 mg total) by mouth 2 (two) times a day. 74 tablet 08/08/19 25 Active buprenorphine (BUTRANS) 7.5 mcg/hour 08/13/19 25 Active warfarin (COUMADIN) 5 mg tablet Take 1 tablet (5 mg total) by mouth. 03/04/19 25 025 Discontinued traMADoL (ULTRAM) 50 mg tablet 0 Refills, Maintenance, 04/29/24 1:42:00 PM EDT, Partial fill upon patient request if the prescription is for a schedule II opioid drug. 04/30/19 025 Discontinued Encounters Date Type Department Care Team Description 08/14/2024 11:45 AM EDT Office Visit [facility] Hematology Oncology [address] [place] [phone] Ranjana Sandoval MD Recurrent deep venous thrombosis ([facility]/HCC V24, CMS/[facility] V28) (Primary Dx) 08/07/2024 7:59 AM EDT - 08/07/2024 10:35 AM EDT Emergency [facility] Emergency [address] [place] [phone] Sotero Clifford DO Deep vein thrombosis (DVT) of proximal vein of right lower extremity, unspecified chronicity (CMS/HCC V24, CMS/HCC V28) (Primary Dx) Discharge Disposition: Home or Self Care 08/06/2024 4:04 PM EDT - 08/06/2024 11:59 PM EDT Hospital Encounter [facility] Ultrasound [address] [place] [address] Other specified soft tissue disorders Discharge Disposition: Home or Self Care 08/06/2024 Telephone [facility] Hematology Oncology [address] [place] [phone] Ranjana Sandoval MD Advice Only 07/15/2024 Telephone [facility] Hematology Oncology [address] [place] [address] Ranjana Sandoval MD 06/17/2024 1:15 PM EDT Office Visit [facility] Hematology Oncology [address] [place] [address] Ranjana Sandoval MD History of DVT (deep vein thrombosis) (Primary Dx); History of pulmonary embolism from Last 3 Months Medical History Medical History Date Comments DVT, lower extremity ([facility] V24, [facility] V28) Bipolar 1 disorder ([facility] V24, [facility] V28) Hyperlipidemia Hypothyroidism Lumbar spinal stenosis GI disease Pulmonary emboli ([facility] V24, [facility] V28) Umbilical hernia [...] Sign Reading Time Taken Comments Blood Pressure 118/74 08/14/2024 11:54 AM EDT Pulse 80 08/14/2024 11:54 AM EDT Temperature 36.4 C (97.5 F) 08/14/2024 11:54 AM EDT Respiratory Rate 21 08/07/2024 8:23 AM EDT Oxygen Saturation 100% 08/14/2024 11: 54 AM EDT Inhaled Oxygen Concentration - - Weight 81.1 kg (178 lb 14.4 oz) 08/07/2024 8:36 AM EDT Height 172.7 cm (5' 8 ) 08/06/2024 6:39 PM EDT Body Mass Index 27.2 08/06/2024 6:39 PM EDT Plan of Treatment Health Maintenance Due Date [...] season) 2023 04/05/2020, 03/15/2020 Influenza Vaccine (#1) 2024 Colorectal Cancer Screening: Colonoscopy 03/02/2026 03/02/2021 [...] Associated Diagnosis Comments CBC WITH AUTO DIFFERENTIAL STAT 08/06/2024 6:46 PM EDT ACTIVATED PARTIAL THROMBOPLASTIN TIME STAT 08/06/2024 6:46 PM EDT PROTHROMBIN TIME WITH INR STAT 08/06/2024 6:46 PM EDT COMPREHENSIVE METABOLIC PANEL STAT 08/06/2024 6:46 PM EDT CBC AND DIFFERENTIAL STAT 08/06/2024 6:46 PM EDT VAS US DUPLEX LOWER EXT VENOUS RIGHT Routine 08/06/2024 5:23 PM EDT Other specified soft tissue disorders HM COLONOSCOPY Routine 03/02/2021 from Last 3 Months or Most Recently Relevant to Health Maintenance Results * (ABNORMAL) CBC auto differential (08/06/2024 6:46 PM EDT) [facility] WBC 5.6 4.8 - 10.8 K/mcL LAB HEMETOLOGY METHOD 08/06/2024 6:58 PM EDT [facility] RBC 4.10(L) 4.50 - 5.50 M/mcL LAB [facility]OLOGY [facility] Hemoglobin 13.2(L) 13.5 - 17.5 g/dL LAB HEMETOLOGY METHOD 08/06/2024 6:58 PM EDT [facility] Hematocrit 40.3(L) 42.0 - 54.0 % LAB HEMETOLOGY METHOD 08/06/2024 6:58 PM EDT [facility] MCV 97.8 79.0 - 98.0 FL LAB HEMETOLOGY METHOD 08/06/2024 6:58 PM EDT [facility] MCH 32.0 27.0 - 32.0 pcg LAB HEMETOLOGY METHOD 08/06/2024 6:58 PM EDT [facility] MCHC 32.8 32.0 - 37.0 g/dL LAB HEMETOLOGY METHOD 08/06/2024 6:[facility] RDW 13.6 11.0 - 15.0 % LAB HEMETOLOGY METHOD 08/06/2024 6:58 [facility] Platelets 227 130 - 400 K/mcL LAB HEMETOLOGY METHOD 08/06/2024 6:58 PM EDT [facility] MPV 9.4 7.0 - 11.0 FL LAB HEMETOLOGY METHOD 08/06/2024 6:[facility] NRBC 0.0 <1.0 % LAB HEMETOLOGY METHOD 08/06/2024 6:58 [facility] NRBC Absolute 0.00 <0.10 K/mcL LAB HEMETOLOGY METHOD 08/06/2024 6:58 PM EDT [facility] Neutrophils Relative 43.7 % LAB HEMETOLOGY METHOD 08/06/2024 6:58 [facility] Lymphocytes Relative 36.5 % LAB HEMETOLOGY METHOD 08/06/2024 6:58 PM [facility] Monocytes Relative 9.9 % LAB HEMETOLOGY METHOD 08/06/2024 6:58 [facility] Eosinophils Relative 9.0 % LAB HEMETOLOGY METHOD 08/06/2024 6:58 PM [facility] Basophils Relative 0.4 % LAB HEMETOLOGY METHOD 08/06/2024 6:58 PM [facility] Immature Granulocytes Relative 0.5 % LAB HEMETOLOGY METHOD 08/06/2024 6:58 PM [facility] Neutrophils Absolute 2.43 1.50 - 7.00 K/mcL LAB HEMETOLOGY METHOD 08/06/2024 6:58 PM EDT [facility] Lymphocytes Absolute 2.03 1.00 - 5.00 K/mcL LAB HEMETOLOGY METHOD 08/06/2024 6:[facility] Monocytes Absolute 0.55 0.20 - 1.00 K/mcL LAB HEMETOLOGY METHOD 08/06/2024 6:58 PM [facility] Eosinophils Absolute 0.50 0.00 - 0.50 K/mcL LAB HEMETOLOGY METHOD 08/06/2024 6:58 PM EDT [facility] Basophils Absolute 0.02 0.00 - 0.20 K/[facility] LAB HEMETOLOGY METHOD 08/06/2024 6:58 PM EDT [facility] Immature Granulocytes Absolute 0.03 0.00 - 0.03 K/[facility] LAB HEMETOLOGY METHOD 08/06/2024 6:58 PM EDT [facility] Blood Venous blood specimen / Unknown Venipuncture / Unknown 08/06/2024 6:46 PM EDT 08/06/2024 6:54 PM EDT [facility] LAB BLOOD ORDERABLES Jacklyn l Result Performing Organization Address [facility]/ZIP Co de Phone Number [facility] [address] [place] [address], [place] [phone] * (ABNORMAL) APTT (08/06/2024 6:46 PM EDT) aPTT 54.4(H) 24.1 - 39.3 sec LAB COAGULATION METHOD 08/06/2024 7:12 PM EDT [facility] Blood Venous blood specimen / Unknown Venipuncture / Unknown 08/06/2024 6:46 PM EDT 08/06/2024 6:54 PM EDT [facility] LAB BLOOD ORDERABLES Jacklyn l Result [facility] [address] [place] [address], [place] [phone] * (ABNORMAL) Prothrombin time with INR (08/06/2024 6:46 PM EDT) Protime 34.2(H) 10.6 - 13.9 sec LAB COAGULATION METHOD 08/06/2024 7:06 PM EDT [facility] INR 2.8 LAB COAGULATION METHOD 08/06/2024 7:06 PM [facility] Blood Venous blood specimen / Unknown Venipuncture / Unknown 08/06/2024 6:46 PM EDT 08/06/2024 6:54 PM EDT us Yohana Landeros DO LAB BLOOD ORDERABLES Jacklyn l Result [facility] [address] [place] [address], [place] [phone] * (ABNORMAL) Comprehensive metabolic panel (08/06/2024 6:46 PM EDT) Sodium 140 133 - 145 mmol/L LAB CHEMISTRY METHOD 08/06/2024 7:36 PM [facility] Potassium 4.5 3.5 - 5.5 mmol/L LAB CHEMISTRY METHOD 08/06/2024 7:36 PM [facility] Chloride 108 96 - 110 mmol/L LAB CHEMISTRY METHOD 08/06/2024 7:36 PM [facility] CO2 26 21 - 32 mmol/L LAB CHEMISTRY METHOD 08/06/2024 7:36 PM [facility] Anion Gap 6 3 - 11 LAB CHEMISTRY METHOD 08/06/2024 7:36 PM [facility] Glucose 114(H) 70 - 100 mg/dL LAB CHEMISTRY METHOD 08/06/2024 7:36 PM [facility] BUN 21 5 - 25 mg/dL LAB CHEMISTRY METHOD 08/06/2024 7:36 PM [facility] Creatinine 1.30 0.70 - 1.30 mg/dL LAB CHEMISTRY METHOD 08/06/2024 7:36 PM [facility] eGFR 60 >=60 mL/min/1. 73m2 LAB CHEMISTRY METHOD 08/06/2024 7:36 PM EDT [facility] Comment:Calculation based on the Chronic Kidney Disease Epidemiology Collaboration (CKD-EPI) equation refit without adjustment for race. BUN/Creatinine Ratio 16.2 LAB CHEMISTRY METHOD 08/06/2024 7:36 PM EDT [facility] Calcium 9.2 8.5 - 10.5 mg/dL LAB CHEMISTRY METHOD 08/06/2024 7:36 PM [facility] AST (SGOT) 25 10 - 42 unit/L LAB CHEMISTRY METHOD 08/06/2024 7:36 PM [facility] ALT (SGPT) 34 10 - 60 unit/L LAB CHEMISTRY METHOD 08/06/2024 7:36 PM T [facility] Alkaline Phosphatase 110 42 - 121 unit/L LAB CHEMISTRY METHOD 08/06/2024 7:36 PM [facility] Total Protein 7.5 6.0 - 8.0 g/dL LAB CHEMISTRY METHOD 08/06/2024 7:36 PM T [facility] Albumin 3.5 3.2 - 5.0 g/dL LAB CHEMISTRY METHOD 08/06/2024 7:36 PM [facility] Total Bilirubin 0.2 0.0 - 1.4 mg/dL LAB CHEMISTRY METHOD 08/06/2024 7:36 PM T [facility] Blood Venous blood specimen / Unknown Venipuncture / Unknown 08/06/2024 6:46 PM EDT 08/06/2024 6:54 PM EDT us Yohana Landeros DO LAB BLOOD ORDERABLES Jacklyn l Result [facility] [address] [place] [address], [place] [phone] * Vascular US duplex lower extremity venous right (08/06/2024 5:23 PM EDT) Anatomical Region Laterality Modality Vascular, Abdomen Ultrasound 08/06/2024 5:30 PM EDT Addenda Addendum by Afsaneh Owen MD on 08/06/2024 6:02 PM EDT ADDENDUM: This report was discussed with David Moraes RN on Aug 06, 2024 18:01:00 EDT. This document has been electronically signed by: Rosy Luciano on 08/06/2024 18:02:03 Impressions 08/06/2024 5:30 PM EDT Impression: Positive for deep vein thrombosis in the distal femoral and popliteal veins. This document has been electronically signed by: Afsaneh Yuen MD on 08/06/2024 17:40:45 Narrative 08/06/2024 5:30 PM EDT INDICATION: swelling extremities Right lower extremity venous duplex ultrasound Comparison: None available Findings: The distal femoral and popliteal veins incompletely compressible with abnormal flow. The other visualized deep veins are fully compressible with normal flow. No popliteal cyst. Procedure Note Iván Gutiérrez MD / Afsaneh Owen MD - 08/06/2024 INDICATION: swelling extremities Right lower extremity venous duplex ultrasound Comparison: None available Findings: The distal femoral and popliteal veins incompletely compressible with abnormal flow. The other visualized deep veins are fully compressiblewith normal flow. No popliteal cyst. IMPRESSION: Impression: Positive for deep vein thrombosis in the distal femoral and popliteal veins. This document has been electronically signed by: Afsaneh Yuen MD on 08/06/2024 17:40:45 Holger Cantrell MD CV VASCULAR PROCEDURES Kenneth dinora Result - Final * Colonoscopy (03/02/2021) Colonoscopy no interpretation abstracted Anatomical Region Laterality Modality Other Historical Provider HEALTH MAINTENANCE Final Result from Last 3 Months or Most Recently Relevant to Health Maintenance [place] [address] [employer] - [place] MEDICARE ADVANTAGE Care Teams Machine Operator Hop Picker Relationship Specialty Start Date End Date Bonilla Grant DO [address] [place], [place] PCP - General Family Medicine 03/10/24
== END 2024-08-20 15:24 | disposition home or self-care (01) ==
LOC: HO.HNS 14:52
PROVIDERS: PCP Family Medicine; Visit Provider Physician Assistant
DX: G96.00 Cerebrospinal fluid leak, unspecified (principal)
CPT/HCPCS: 99024

== ENCOUNTER → 2024-08-20 14:51 | Outpatient (BNVA) | payer MEDICARE, SELFPAY | PROVIDERS: PCP Family Medicine; Visit Provider Physician Assistant | DX: G56.00 Carpal tunnel syndrome, unspecified upper limb (principal); Z98.890 Other specified postprocedural states; G96.00 Cerebrospinal fluid leak, unspecified | CPT/HCPCS: 99212 ==

== ENCOUNTER 2024-09-24 11:06 | Outpatient (AMB) | payer MEDICARE, SELFPAY ==
--- OUTSIDE RECORDS SUMMARY | 2024-09-18 23:59 | XMS_ITS | Continuity of Care Document ---
Author Organization [facility] Address [address] [place] [address]- Care Team Providers Care Repairing Calibrator Name Role Phone Óscar OLEARY, Holger Primary Care Physician [phone] Encounter [facility] Date(s): 08/19/24 - 09/18/[address] [address]- Encounter Type: Triage Allergies, Adverse Reactions, Alerts Substance Criticality Severity [...] Daily, # 90 tablet, 1 Refills, Maintenance, 08/19/24 11:29:00 AM EDT, [facility] # [id number], 170.1, cm, 08/05/24 11:13:00 EDT, Height, 82.5, kg, 11/05/23 9:56:00 EDT, Dry Weight Start Date: 08/19/24 Status: Ordered Quantity: 90.0 Unit: tablet Repeat number: 2 buprenorphine 7.5 mcg/hr transdermal film, extended release [...] 1:44:00 PM EDT, Route to Pharmacy Electronically, [facility] # [id number], Partial fill upon [...] 0 Refills, Maintenance, 07/25/24 4:45:00 PM EDT, [facility] #[id number], 170.1, cm, 04/29/24 13:34:00 EDT, Height, 82.5, kg, 11/05/23 9:56:00 EDT, Dry Weight Start Date: 07/25/24 Status: Ordered Quantity: 90.0 Unit: tablet Repeat number: 1 Metoprolol Tartrate 25 mg oral tablet 1 tablet, By Mouth, 2 times a day, # 180 tablet, 1 Refills, Maintenance, 10/20/23 11:52:00 AM EDT, [facility] #[id number], 170.1, cm, 09/26/23 10:33:00 EDT, Height Start Date: 10/20/23 Status: Ordered Quantity: 180.0 Unit: tablet Repeat number: 1 pantoprazole 40 mg oral delayed release tablet 1 tablet, By Mouth, 2 times a day, # 60 tablet, 3 Refills, Maintenance, 09/02/24 9:27:00 AM EDT, 170.1, cm, 08/05/24 11:13:00 EDT, Height, 82.5, kg, 11/05/23 9:56:00 EDT, Dry Weight Start Date: 09/02/24 Status: Ordered Quantity: 60.0 Unit: tablet Repeat number: 4 topiramate 25 mg oral tablet 2 tablet, By Mouth, Daily, # 180 tablet, 1 Refills, Maintenance, 06/28/24 10:08:00 PM EDT, [facility] #[id number], 170.1, cm, 04/29/24 13:34:00 EDT, Height, 82.5, [...] 0 Refills, Maintenance, 06/09/24 8:16:00 AM EDT, [facility] #[id number], 170.1, cm, 04/29/24 13:34:00 EDT, Height, 82.5, [...] of colon Confirmed Active Hyperlipidemia Confirmed Active Social History Social History Type Response Smoking Status Never (less than 100 in lifetime) entered on: 08/05/24 Sex Sex Representation Male (finding) Patient Care team information Care Team Personnel Name: Marissa Ashton RN Position: [facility] RN Member Role: Primary Care Nurse Name: Holgre Cantrell MD Position: [facility] Physician - Primary Care Member Role: PCP Address: [address] [place] [address] Telecom: Care Team Related Persons Name: SALLIE GORDON Insurance Providers Guarantor name: KAREN GORDON Health Plan Information #: 1 Payer: [employer] [facility] PPO Payer Identifier: NA Member Number: [id number] Group Number: [id number] Subscriber Identifier: [id number] Relationship to Subscriber: self Coverage Type: Medicare PPO Coverage Verification Date: [place] Telecom: NA Address: NA
--- NOTE | 2024-09-24 11:08 | MHC.OFFVIS ---
Vital Signs 09/24/24 11:18 Height 5 ft 7 in Weight 179 lb BMI 28.0 BP 158/79 H Blood Pressure Location Rt brachial Position Sitting Respiration 16 Pulse 106 H Pulse Source Pulse Oximeter Pulse Oximetry (%) 97 Oxygen Delivery Method Room Air Intake Visit Reasons: Pill Count/ Random UDS Intake Note: Patient here for a Patch count routine of buprenorphine. Per directions patient should have 2 patches. Patient presented 2 patches. Last took 09/17/24. Rn Case Management Required: No Accompanied by: Self / Same As Patient Allergies oxycodone Adverse Reaction (Severe, Verified 09/24/24 11:09) vertigo sulfamethoxazole (From Bactrim) Adverse Reaction (Severe, Verified 09/24/24 11:09) AFIB trimethoprim (From Bactrim) Adverse Reaction (Severe, Verified 09/24/24 11:09) AFIB HPI Comments Details: Carlito is a very pleasant 69-year-old male who presents to the office for follow up chronic back pain and chronic opioid therapy management. Patient is prescribed buprenorphine 10 microgram/hour patches, 1 patch weekly. Patient arrived today with the expectation of having 0 patches, he presented to patches which were counted in the presence of 2 staff and return to the patient in the original prescription bottle. This demonstrates responsible attitude toward patient's opioid medications. Pain is reported today as 7/10 and last patch was applied on . Pain is adequately managed on current opioid regimen though he does report pain is exacerbated with activity and worsens by the end of the day. His dose was increased at last visit from 7.5 mcg per hour to 10 microgram/hour. Patient denies side effects including somnolence, constipation, itching, dyspnea, rash, dizziness or weakness. COUNT INCLUDES THE [facility] Medical History Acute respiratory failure Pulmonary embolus LAU (dyspnea on exertion) ROSS (obstructive sleep apnea) Arthritis Hiatal hernia Anxiety Depression Elevated cholesterol Atrial fibrillation Self-catheterizes urinary bladder Disorder of sacroiliac joint Lumbar spinal stenosis Thyroid disease GERD (gastroesophageal reflux disease) Cognitive disorder Back pain Bladder atony Osteoarthritis of hips, bilateral Hypothyroidism Hyperlipidemia Bipolar 1 disorder DVT (deep venous thrombosis) Lynette's thyroiditis Sacroiliac joint pain Bilateral lumbar radiculopathy Spondylosis of lumbar spine Bilateral hip pain Spondylolisthesis Surgical History History of surgery Previous back surgery History of hand surgery History of esophagogastroduodenoscopy (EGD) (~10/2023) Hx of umbilical hernia repair Hx of colonoscopy Social History Household Members: Spouse and Children Housing: House Are you a primary health care liaison to a significant other at home: No Do you presently have visiting nurse or other home services: No Comment: COUNTS CORRECT Patient Tobacco Use Status: Never used Tobacco e-Cigarette/Vaping Use: Never Used service: No Review of Systems Const All systems reviewed & are unremarkable except as noted in HPI and below Physical Exam Exam Exam: General: awake, alert, oriented. Answers questions appropriately. Fully engaged in examination. Skin: warm, dry, intact HEENT: Normocephalic. Hearing intact. Cardiac: External chest normal in appearance. Respiratory: No cough, audible wheezing or stridor. Abdomen: without gross distension. MS: No obvious swelling or deformities. Neurological: Oriented to person, place, time and situation. Thought process intact. No gait abnormalities appreciated. Psychiatric: Appropriate mood and affect. Good judgment and insight. Vital Signs: Last Vital Signs Pulse 106 H 09/24/24 11:18 Resp 16 09/24/24 11:18 BP 158/79 H 09/24/24 11:18 Pulse Ox 97 09/24/24 11:18 Oxygen Delivery Method Room Air 09/24/24 11:18 BMI result Body Mass Index 28.0 Results Reviewed Results Reviewed: CT lumbar post myelography 04/15/24 CLINICAL INDICATION: CSF fluid leak. COMPARISON: Lumbar spine x-ray 04/09/2024. TECHNIQUE: Axial 3 mm thin and reformatted 2 mm thin sagittal and coronal images of lumbar spine were obtained following insertion of mL of nonionic Omnipaque 300 Neuro contrast through epidural catheter by Dr. Lim. DLP 620 mGy/cm. FINDINGS: On sagittal reconstructed images is maintained lumbar lordosis. There is grade 1 anterolisthesis L5 on S1. Rest of the vertebral alignment is normal. There is loss of disc height virtually at every disc level sparing the L4-5 disc level with ventral and posterior spondylosis. At T12-L1 disc level there is posterior spondylosis/bulge complex with mild spinal canal narrowing. There is mild narrowing of the right neural foramina. At L1-L2 disc level there is posterior spondylosis/bulge complex with moderate canal stenosis there is bilateral moderate narrowing of neural foramina. There is extraspinal catheter entering the intrathecal sac from posterior approach with its tip extending superiorly above the T12 vertebra not in the [id number]. There is a large posterior soft tissue CSF and contrast collection likely punctured or severed catheter. At L2-3 disc level there is posterior spondylosis/bulge complex resulting in moderate concentric canal stenosis. There is bilateral mild facet joint hypertrophy resulting in bilateral neural foraminal narrowing. At L3-4 disc level there is severe spinal canal stenosis from a combination of disc bulge/osteophyte complex and bilateral moderate facet joint hypertrophy. There is bilateral mild to moderate narrowing of neural foramina. At L4-5 disc level there is severe concentric canal stenosis. The neural foramina are bilaterally moderately narrowed. L5-S1 disc level is anterolisthesis with broad-based diffuse pseudodisc bulge resulting in severe spinal canal stenosis. The neural foramina are mildly narrowed bilaterally. Bilateral L5 pars defects are noted. Posterior to L1-L2 disc level there is a large sac consistent with CSF and contrast measuring 6.1 cm in craniocaudad length, 5.5 cm in AP and 3.4 cm wide on sagittal image 33/6 and axial image 40/4. IMPRESSION: Grade 1 anterolisthesis L5-S1 with degenerative disc changes which at every disc level sparing the L4-5 disc level. There is moderate ventral and posterior spondylosis. There is multilevel spinal canal stenosis. There is intrathecal catheter entering the L1-L2 posterior interlaminar space with the tip extending superior to T12 vertebra not in the [id number]. There is a large fluid collection posterior L1-L2 disc level where the catheter appears very irregular and likely perforated resulting in extravasation of CSF and contrast as measured above. This is likely site of CSF leak. Assessment & Plan Assessment & Plan (1) Spondylolisthesis: Code(s): M43.10 - Spondylolisthesis, site unspecified Category: Medical (2) CSF leak: Code(s): G96.00 - Cerebrospinal fluid leak, unspecified Category: Medical (3) Spondylosis of lumbar spine: Code(s): M47.816 - Spondylosis without myelopathy or radiculopathy, lumbar region Category: Medical (4) Bilateral lumbar radiculopathy: Code(s): M54.16 - Radiculopathy, lumbar region Category: Medical (5) Epidural lipomatosis: Code(s): D17.79 - Benign lipomatous neoplasm of other sites Category: Medical (6) Spinal stenosis of lumbar region with radiculopathy: Code(s): M48.061 - Spinal stenosis, lumbar region without neurogenic claudication; M54.16 - Radiculopathy, lumbar region Category: Medical (7) Spinal cord stimulator dysfunction: Code(s): T85.192A - Other mechanical complication of implanted electronic neurostimulator of spinal cord electrode (lead), initial encounter Category: Medical (8) Malfunction of intrathecal infusion pump: Code(s): T85.615A - Breakdown (mechanical) of other nervous system device, implant or graft, initial encounter Category: Medical Plan Masspat was reviewed and without concerns. No obvious signs of diversion, abuse or misuse of the opioid medications. Will send in prescription for buprenorphine 10 microgram/hour patches, apply 1 patch weekly Random UDS collected today, review before next visit. Patient to follow-up in the office in 1 month, sooner if needed. All questions and concerns have been answered and patient agrees with the plan. Medications: Refilled buprenorphine 10 mcg/hour 1 patch transdermal Q7D 4 ea 1RF 28 days Coding Level of Care Code Est Pt Level 3 (73083) Complex EM visit Add On G2211 Diagnoses Spondylolisthesis M43.10 CSF leak G96.00 Spondylosis of lumbar spine M47.816 Bilateral lumbar radiculopathy M54.16 Epidural lipomatosis D17.79 Spinal stenosis of lumbar region with radiculopathy M48.061; M54.16 Spinal cord stimulator dysfunction T85.192A Malfunction of intrathecal infusion pump T85.615A
[2024-09-24 11:18] VITALS: BP 158/79; PULSE 106; RESP 16; O2SAT 97; BMI 28.0
--- OUTSIDE RECORDS SUMMARY | 2024-09-24 12:06 | XMS_ITS | Clinical Summary ---
Author Organization [facility] Address [address] [place] [address] Phone Care Team Providers Care Phlebotomy Tech Name Role Phone Bonilla Grant Primary Care Provider Allergies Active Allergy Reactions [...] by mouth 2 times daily. 07/31/2023 Active apixaban (ELIQUIS) starter pack Take 2 tablets (10 mg total) by mouth 2 (two) times a day for 7 days. Then take 1 tablet (5 mg total) by mouth 2 (two) times a day. 74 tablet 08/07/2024 Active buprenorphine (BUTRANS) 7.5 mcg/hour 08/12/2024 Active apixaban (ELIQUIS) 5 mg tablet Take 1 tablet (5 mg total) by mouth 2 (two) times a day. 60 tablet 3 09/05/2024 Active Encounters Date Type Department Care Team Description 08/14/2024 11:45 AM EDT Office Visit [facility] Hematology Oncology [address] [place] [phone] Ranjana Sandoval MD Recurrent deep venous thrombosis ([facility] V24, [facility] V28) (Primary Dx) 08/07/2024 7:59 AM EDT - 08/07/2024 10:[address] [facility] Emergency [address] [place] [phone] Sotero Clifford DO Deep vein thrombosis (DVT) of proximal vein of right lower extremity, unspecified chronicity ([facility] V24, [facility] V28) (Primary Dx) Discharge Disposition: Home or Self Care 08/06/2024 4:04 PM EDT - 08/06/2024 11:59 PM EDT Hospital Encounter [facility] Ultrasound [address] [place] [address] Other specified soft tissue disorders Discharge Disposition: Home or Self Care 08/06/[address] [facility] Hematology Oncology [address] [place] [phone] Ranjana Sandoval MD Advice Only 07/15/[address] [facility] Hematology Oncology [address] [place] [phone] Ranjana Sandoval MD from Last 3 Months Medical History Medical History Date Comments DVT, lower extremity ([facility] V24, [facility] V28) Bipolar 1 disorder ([facility] V24, [facility] V28) Hyperlipidemia Hypothyroidism Lumbar spinal stenosis GI disease Pulmonary emboli ([facility] V24, [facility] V28) Umbilical hernia Family History Medical [...] 07/13/2021 07/14/2011 Cholesterol Screening (Lipid Panel) 01/15/2022 Hepatitis C Screening 01/15/2022 Medicare Annual Wellness Visit 01/15/2022 Social Influencers of Health Screening 01/15/2022 Falls Risk Assessment 2022 COVID-19 Vaccine (3 - 2023-2 5 season) 2023 04/05/2020, 03/15/2020 Depression Screening 02/13/2024 Influenza Vaccine (#1) 2024 Colorectal Cancer Screening: [...] CBC auto differential (08/06/2024 6:46 PM EDT) [facility] WBC 5.6 4.8 - 10.8 K/mcL LAB HEMETOLOGY METHOD 08/06/2024 6:[address] [facility] RBC 4.10(L) 4.50 - 5.50 M/mcL LAB HEMETOLOGY METHOD 08/06/2024 6:[address] [facility] Hemoglobin 13.2(L) 13.5 - 17.5 g/dL LAB HEMETOLOGY METHOD 08/06/2024 6:[address] [facility] Hematocrit 40.3(L) 42.0 - 54.0 % [facility] MCV 97.8 79.0 - 98.0 FL LAB [facility]EM[facility]OLOGY METHOD [facility] MCH 32.0 27.0 - 32.0 pcg LAB HEMETOLOGY METHOD [facility] MCHC 32.8 32.0 - 37.0 g/dL LAB HEMETOLOGY METHOD 08/[facility]24 [facility] RDW 13.6 11.0 - 15.0 % LAB HEMETOLOGY METHOD [facility] Platelets 227 130 - 400 K/mcL LAB HEMETOLOGY METHOD 08/06/2024 6:[address] [facility] MPV 9.4 7.0 - 11.0 FL LAB HEMETOLOGY METHOD [facility] NRBC 0.0 <1.0 % LAB HEMETOLOGY METHOD [facility] NRBC Absolute 0.00 <0.10 K/mcL LAB HEMETOLOGY METHOD 08/06/2024 6:58 PM [facility] Neutrophils Relative 43.7 % LAB HEMETOLOGY METHOD 08/06/2024 6:58 PM [facility] Lymphocytes Relative 36.5 % LAB HEMETOLOGY METHOD 08/06/2024 6:58 PM [facility] Monocytes Relative 9.9 % LAB HEMETOLOGY METHOD 08/06/2024 6:58 PM [facility] Eosinophils Relative 9.0 % LAB HEMETOLOGY METHOD 08/06/2024 6:58 PM [facility] Basophils Relative 0.4 % LAB HEMETOLOGY METHOD 08/06/2024 6:58 PM [facility] Immature Granulocytes Relative 0.5 % LAB HEMETOLOGY METHOD 08/06/2024 6:58 PM [facility] Neutrophils Absolute 2.43 1.50 - 7.00 K/mcL LAB HEMETOLOGY METHOD 08/06/2024 6:58 PM [facility] Lymphocytes Absolute 2.03 1.00 - 5.00 K/mcL LAB HEMETOLOGY METHOD 08/06/2024 6:58 PM [facility] Monocytes Absolute 0.55 0.20 - 1.00 K/mcL LAB HEMETOLOGY METHOD 08/06/2024 6:58 PM [facility] Eosinophils Absolute 0.50 0.00 - 0.50 K/mcL LAB HEMETOLOGY METHOD 08/06/2024 6:58 PM [facility] Basophils Absolute 0.02 0.00 - 0.20 K/mcL LAB HEMETOLOGY METHOD 08/06/2024 6:58 PM [facility] Immature Granulocytes Absolute 0.03 0.00 - 0.03 K/mcL LAB HEMETOLOGY METHOD 08/06/2024 6:58 PM [facility] Blood Venous blood specimen / Unknown Venipuncture / Unknown 08/06/2024 6:46 PM EDT 08/06/2024 6:54 PM EDT us Yohana Landeros LAB BLOOD ORDERABLES Jacklyn l Result Performing Organization Address [facility]/ZIP Co de Phone Number [facility] [address] [place] [address], [place] [phone] * (ABNORMAL) APTT (08/06/2024 6:46 PM EDT) aPTT 54.4(H) 24.1 - 39.3 sec LAB COAGULATION METHOD 08/06/2024 7:[address] [facility] Blood Venous blood specimen / Unknown Venipuncture / Unknown 08/06/2024 6:46 PM EDT 08/06/2024 6:54 PM EDT us Yohana Landeros LAB BLOOD ORDERABLES Jacklyn l Result Performing Organization Address [facility] Co de Phone Number [facility] [address] [place] [address], [place] [phone] * (ABNORMAL) Prothrombin time with INR (08/06/2024 6:46 PM EDT) Protime 34.2(H) 10.6 - 13.9 sec LAB COAGULATION METHOD 08/06/2024 7:[address] [facility] INR 2.8 LAB COAGULATION METHOD 08/06/2024 7:[address] [facility] Blood Venous blood specimen / Unknown Venipuncture / Unknown 08/06/2024 6:46 PM EDT 08/06/2024 6:54 PM EDT us Yohana Landeros LAB BLOOD ORDERABLES Jacklyn l Result [facility] [address] [place] [address], * (ABNORMAL) Comprehensive metabolic panel (08/06/2024 6:46 PM EDT) Sodium 140 133 - 145 mmol/L LAB CHEMISTRY METHOD 08/06/2024 7:[address] [facility] Potassium 4.5 3.5 - 5.5 mmol/L LAB CHEMISTRY METHOD 08/06/2024 7:[address] [facility] Chloride 108 96 - 110 mmol/L LAB CHEMISTRY METHOD 08/06/2024 7:[address] [facility] CO2 26 21 - 32 mmol/L LAB CHEMISTRY METHOD [facility] Anion Gap 6 3 - 11 LAB CHEMISTRY METHOD 08/06/2024 7:36 PM [facility] Glucose 114(H) 70 - 100 mg/dL LAB CHEMISTRY METHOD [facility] BUN 21 5 - 25 mg/dL LAB CHEMISTRY METHOD 08/06/2024 7:36 PM [facility] Creatinine 1.30 0.70 - 1.30 mg/dL LAB CHEMISTRY METHOD [facility]20[facility] eGFR 60 >=60 mL/min/1. 73m2 LAB CHEMISTRY METHOD 08/06/2024 7:36 PM [facility] Comment:Calculation based on the Chronic Kidney Disease Epidemiology Collaboration (CKD-EPI) equation refit without adjustment for race. BUN/Creatinine Ratio 16.2 LAB CHEMISTRY METHOD 08/06/2024 7:36 PM [facility] Calcium 9.2 8.5 - 10.5 mg/dL LAB CHEMISTRY METHOD 08/06[facility]2024 7[facility] AST (SGOT) 25 10 - 42 unit/L LAB CHEMISTRY METHOD 08/06/2024 7:[address] [facility] ALT (SGPT) 34 10 - 60 unit/L LAB CHEMISTRY METHOD 08/06/2024 7:[address] [facility] Alkaline Phosphatase 110 42 - 121 unit/L LAB CHEMISTRY METHOD 08/06/2024 7:[address] [facility] Total Protein 7.5 6.0 - 8.0 g/dL LAB CHEMISTRY METHOD 08/06/2024 7:[address] [facility] Albumin 3.5 3.2 - 5.0 g/dL LAB CHEMISTRY METHOD 08/06/2024 7:[address] [facility] Total Bilirubin 0.2 0.0 - 1.4 mg/dL LAB CHEMISTRY METHOD 08/06/2024 7:[address] [facility] Blood Venous blood specimen / Unknown Venipuncture / Unknown 08/06/2024 6:46 PM EDT 08/06/2024 6:54 PM EDT us Javed Stephan Holtny Tigre DO LAB BLOOD ORDERABLES Jacklyn l Result [facility] [address] [place] [address], [place] [phone] * Vascular US duplex lower extremity venous [...] Insurance [employer] [place] MEDICARE ADVANTAGE Care Teams Phlebotomy Tech Relationship Specialty Start Date End Date Bonilla Grant DO [address], [place] PCP - General Family Medicine 03/10/24
--- OUTSIDE RECORDS SUMMARY | 2024-09-24 12:06 | XMS_ITS | Clinical Summary ---
Author Organization [facility] Address [address] [place] [address] Care Team Providers Care Mail Reader Name Role Phone Bonilla Grant MD Primary Care Provider [phone] Allergies Active Allergy Reactions Criticality Noted Date [...] Tobacco: Never [facility] [employer] Answer Date Recorded In the past 12 months has QA on Request, gas, oil, or water [employer] threatened to shut off services in your [...] were you homeless or living in a penitentiary (including now)? No 02/29/2024 Sex and Gender [...] 7:40 PM 02/28/2024 8:48 PM Care Teams Mail Reader Relationship Specialty Start Date End Date Bonilla Grant MD [address] [place] [address] PCP - General Psychiatry, General 02/28/24
== END 2024-09-24 11:38 | disposition home or self-care (01) ==
LOC: HO.PMC 11:07
PROVIDERS: PCP Family Medicine; Visit Provider Registered Nurse Emergency
DX: M43.10 Spondylolisthesis, site unspecified (principal); G96.00 Cerebrospinal fluid leak, unspecified; M47.816 Spondylosis without myelopathy or radiculopathy, lumbar region; M54.16 Radiculopathy, lumbar region; D17.79 Benign lipomatous neoplasm of other sites; M48.061 Spinal stenosis, lumbar region without neurogenic claudication; T85.192A Other mechanical complication of implanted electronic neurostimulator of spinal cord electrode (lead), initial encounter; T85.615A Breakdown (mechanical) of other nervous system device, implant or graft, initial encounter
CPT/HCPCS: 99213; G2211

== ENCOUNTER → 2024-09-24 11:06 | Outpatient (BNVA) | payer MEDICARE, SELFPAY | PROVIDERS: PCP Family Medicine; Visit Provider Registered Nurse Emergency | DX: M54.16 Radiculopathy, lumbar region (principal); M43.10 Spondylolisthesis, site unspecified; G96.00 Cerebrospinal fluid leak, unspecified; M47.816 Spondylosis without myelopathy or radiculopathy, lumbar region; D17.79 Benign lipomatous neoplasm of other sites; M48.061 Spinal stenosis, lumbar region without neurogenic claudication; T85.615A Breakdown (mechanical) of other nervous system device, implant or graft, initial encounter; T85.192A Other mechanical complication of implanted electronic neurostimulator of spinal cord electrode (lead), initial encounter | CPT/HCPCS: 99212 ==

== ENCOUNTER 2024-10-09 09:14 | Outpatient (AMB) | payer MEDICARE, SELFPAY ==
--- OUTSIDE RECORDS SUMMARY | 2024-10-05 23:59 | XMS_ITS | Continuity of Care Document ---
Author Organization [facility] Address [address] [place] [address]- Care Team Providers Care Sports Leadership Instructor Name Role Phone Óscar OLEARY, Holger Primary Care Physician [phone] [id number] Date(s): 09/05/24 - 10/05/[address] [address]- Encounter Type: Triage Allergies, Adverse Reactions, Alerts [...] 1 Refills, Maintenance, 08/19/24 11:29:00 AM EDT, [facility] # [id number], 170.1, cm, 08/05/24 11:13:00 [...] 1:44:00 PM EDT, Route to Pharmacy Electronically, [facility] # [id number], Partial fill [...] 0 Refills, Maintenance, 07/25/24 4:45:00 PM EDT, [facility][id number], 170.1, cm, 04/29/24 13:34:00 EDT, Height, 82.5, kg, 11/05/23 9:56:00 EDT, Dry Weight Start Date: 07/25/24 Status: Ordered Quantity: 90.0 Unit: tablet Repeat number: 1 Metoprolol Tartrate 25 mg oral tablet 1 tablet, By Mouth, 2 times a day, # 180 tablet, 1 Refills, Maintenance, 10/20/23 11:52:00 AM EDT, [facility] #[id number], 170.1, cm, 09/26/23 10:33:00 EDT, Height Start [...] 1 Refills, Maintenance, 06/28/24 10:08:00 PM EDT, [facility] #[id number], 170.1, cm, 04/29/24 13:34:00 EDT, Height, 82.5, [...] 0 Refills, Maintenance, 06/09/24 8:16:00 AM EDT, [facility] #[id number], 170.1, cm, 04/29/24 13:34:00 EDT, Height, 82.5, [...] Team Personnel Name: Marissa Ashton RN Position: [facility] RN Member Role: Primary Care Nurse Name: Holger Cantrell MD Position: [facility] Physician - Primary Care Member Role: PCP Address: [address] [place] [address] Telecom: Care Team Related Persons Name: SALLIE GORDON Insurance Providers Guarantor name: KAREN GORDON Health Plan Information #: 1 Payer: [employer] [facility] PPO Payer Identifier: NA Member Number: [id number] Group Number: [id number] Subscriber Identifier: [id number] Relationship to Subscriber: self Coverage Type: Medicare PPO Coverage Verification Date: [place] Telecom: NA Address: NA
--- NOTE | 2024-10-09 09:25 | A.OFFVIS_ITS ---
Vital Signs 10/09/24 09:26 Weight 176 lb BP 160/91 H Blood Pressure Location Lt brachial Position Sitting Respiration 18 Pulse 104 H Pulse Source Pulse Oximeter Pulse Oximetry (%) 99 Oxygen Delivery Method Room Air Intake Visit Reasons: EXTREME PAIN Information Security Director Required: No Allergies oxycodone Adverse Reaction (Severe, Verified 10/09/24 09:24) vertigo sulfamethoxazole (From Bactrim) Adverse Reaction (Severe, Verified 10/09/24 09:24) AFIB trimethoprim (From Bactrim) Adverse Reaction (Severe, Verified 10/09/24 09:24) AFIB HPI Comments Details: Carlito is in the office today with a report that buprenorphine patch does not help his pain at all. He wants to try something else. I explained to him that with his side effects on oxycodone and hydrocodone there are not so many choices I can offer to him today. We discussed Belbuca as well as tramadol. He is currently taking duloxetine and therefore tramadol can not be prescribed only if he will stop duloxetine. We agreed that he will consult his psychiatrist on the decision whether or not I can prescribe tramadol to him. Alternatively we can try hydromorphone or oxymorphone for this patient in minimal doses to help his pain. I will be waiting for his decision. Side effects of the tramadol were carefully explained to the patient. Side effect of buccal buprenorphine Belbuca also were explained to the patient. Risks and benefits were explained to the patient. Dental hygiene while on Belbuca was explained to the patient as well. Patient will contact his psychiatrist and after that we will make a decision. Prior: PRIOR: Carlito developed subcutaneous CSF leak after pain pump implantation. Revision was done on 04/18/2024 where the leak was discovered coming from the laminitomy and catheter insertion site. the duragen and neurosurgical glue were used to close the leak. never-the less expectations were high that the leak would return. The leg did return and explantation of the intrathecal pain pump and repair of the dura matter by Dr. Velasco were performed. Past Procedures: 04/18/2024: revision of the ItDD system 01/18/2024: Implantation of the I DDD with neurosurgical implanted intrathecal catheter via anatomy. 08/10/23: Attempt of ITDD implant-0% pain relief, procedure aborted 05/22/23: ITDD trial with Fentanyl -80% pain relief for 28 hours 04/20/23: Lumbar Nevro SCS trial-30-40% pain relief [facility] Medical History Acute respiratory failure Pulmonary embolus LAU (dyspnea on exertion) ROSS (obstructive sleep apnea) Arthritis Hiatal hernia Anxiety Depression Elevated cholesterol Atrial fibrillation Self-catheterizes urinary bladder Disorder of sacroiliac joint Lumbar spinal stenosis Thyroid disease GERD (gastroesophageal reflux disease) Cognitive disorder Back pain Bladder atony Osteoarthritis of hips, bilateral Hypothyroidism Hyperlipidemia Bipolar 1 disorder DVT (deep venous thrombosis) Lynette's thyroiditis Sacroiliac joint pain Bilateral lumbar radiculopathy Spondylosis of lumbar spine Bilateral hip pain Spondylolisthesis Surgical History History of surgery Previous back surgery History of hand surgery History of esophagogastroduodenoscopy (EGD) (~10/2023) Hx of umbilical hernia repair Hx of colonoscopy Social History Household Members: Spouse and Children Housing: House Are you a primary special needs caregiver to a significant other at home: No Do you presently have visiting nurse or other home services: No Comment: COUNTS CORRECT Patient Tobacco Use Status: Never used Tobacco e-Cigarette/Vaping Use: Never Used service: No Review of Systems Const All systems reviewed & are unremarkable except as noted in HPI and below Physical Exam Vital Signs: Last Vital Signs Pulse 104 H 10/09/24 09:26 Resp 18 10/09/24 09:26 BP 160/91 H 10/09/24 09:26 Pulse Ox 99 10/09/24 09:26 Oxygen Delivery Method Room Air 10/09/24 09:26 General: Appears afebrile. Alert and oriented. Mood and affect appropriate. Follows and participates in conversation appropriately. Respiratory effort is unlabored. Able to transition from sit to stand unassisted. Ambulates with bilaterally normal heel strike and toe off. General: Yes no CVA tenderness Back/Spine/Pelvis Other: Midline incision wound-No pathological discharge, no swelling and no erythema. the upper buttock incision is also clean, no erythema, no edema, no local tenderness, however deep under the skin both of the incisions exhibits signs of ballottement of the fluid. Back: no CVA tenderness Assessment & Plan Assessment & Plan (1) Spondylolisthesis: Code(s): M43.10 - Spondylolisthesis, site unspecified Category: Medical (2) CSF leak: Code(s): G96.00 - Cerebrospinal fluid leak, unspecified Category: Medical (3) Spondylosis of lumbar spine: Code(s): M47.816 - Spondylosis without myelopathy or radiculopathy, lumbar region Category: Medical (4) Bilateral lumbar radiculopathy: Code(s): M54.16 - Radiculopathy, lumbar region Category: Medical (5) Epidural lipomatosis: Code(s): D17.79 - Benign lipomatous neoplasm of other sites Category: Medical (6) Spinal stenosis of lumbar region with radiculopathy: Code(s): M48.061 - Spinal stenosis, lumbar region without neurogenic claudication; M54.16 - Radiculopathy, lumbar region Category: Medical (7) Spinal cord stimulator dysfunction: Code(s): T85.192A - Other mechanical complication of implanted electronic neurostimulator of spinal cord electrode (lead), initial encounter Category: Medical (8) Malfunction of intrathecal infusion pump: Code(s): T85.615A - Breakdown (mechanical) of other nervous system device, implant or graft, initial encounter Category: Medical Plan The patient is reporting less than adequate pain relief on buprenorphine patch. I offered Belbuca and I offered tramadol to him. He is more inclined to start tramadol however he needs to speak with his psychiatrist to stop his duloxetine because the duloxetine and tramadol not very well combined. Prolonged conversation was held today about side effects of both duloxetine and tramadol in combination as well as side effects of Belbuca. The patient expressed understanding. He will give us a call and we will decide what to do with his treatment. Patient Instructions: I here by testify that I spent 30 minutes in conversation with this patient as well as planning his care and organizing this note. Coding Level of Care Code Est Pt Level 4 (82898) Diagnoses Spondylolisthesis M43.10 CSF leak G96.00 Spondylosis of lumbar spine M47.816 Bilateral lumbar radiculopathy M54.16 Epidural lipomatosis D17.79 Spinal stenosis of lumbar region with radiculopathy M48.061; M54.16 Spinal cord stimulator dysfunction T85.192A Malfunction of intrathecal infusion pump T85.460L
[2024-10-09 09:26] VITALS: BP 160/91; PULSE 104; RESP 18; O2SAT 99
--- OUTSIDE RECORDS SUMMARY | 2024-10-09 10:14 | XMS_ITS | Clinical Summary ---
Author Organization [facility] Address [address] [place] [address] Phone Care Team Providers Care Coffee Roaster Name Role Phone Bonilla Grant Primary Care Provider [phone] Allergies Active Allergy Reactions Criticality Noted Date [...] Description 08/14/2024 11:45 AM EDT Office Visit [facility] Hematology Oncology [address] [place] [phone] Ranjana Sandoval MD Recurrent deep venous thrombosis ([facility] V24, [facility] V28) (Primary Dx) 08/07/2024 7:59 AM EDT - 08/07/2024 10:35 AM EDT Emergency [facility] Emergency [address] [place] [phone] Sotero Clifford DO Deep vein thrombosis (DVT) of proximal vein of right lower extremity, unspecified chronicity ([facility] V24, [facility] V28) (Primary Dx) Discharge Disposition: Home or Self Care 08/06/2024 4:04 PM EDT - 08/06/2024 11:59 PM EDT Hospital Encounter [facility] Ultrasound [address] [place] [address] Other specified soft tissue disorders Discharge Disposition: Home or Self Care 08/06/2024 Telephone [facility] Hematology Oncology [address] [place] [phone] Ranjana Sandoval MD 07/15/2024 Telephone [facility] Hematology Oncology [address] [place] [address] Ranjana Sandoval MD from Last 3 Months Medical History Medical History Date Comments DVT, lower extremity ([facility] V24, [facility] V28) Bipolar 1 disorder ([facility] V24, [facility] V28) Hyperlipidemia Hypothyroidism Lumbar spinal stenosis GI disease [facility]monary emboli ([facility] V24, [facility] V28) Umbilical hernia Family History Medical [...] CBC auto differential (08/06/2024 6:46 PM EDT) [facility] WBC 5.6 4.8 - 10.8 K/mcL LAB HEMETOLOGY METHOD 08/06/2024 6:58 PM EDT [facility] RBC 4.10(L) 4.50 - 5.50 M/mcL LAB HEMETOLOGY METHOD 08/06/2024 6:58 PM EDT [facility] Hemoglobin 13.2(L) 13.5 - 17.5 g/dL LAB HEMETOLOGY METHOD 08/06/2024 6:58 PM EDT [facility] Hematocrit 40.3(L) 42.0 - 54.0 % [facility] MCV 97.8 79.0 - 98.0 FL LAB [facility]OLOGY [facility] MCH 32.0 27.0 - 32.0 pcg LAB HEMETOLOGY METHOD 08/06/2024 6:58 PM EDT [facility] MCHC 32.8 32.0 - 37.0 g/dL LAB HEMETOLOGY METHOD [facility]24 6[facility] RDW 13.6 11.0 - 15.0 % LAB [facility]OLOGY METHOD [facility] 6[facility] Platelets 227 130 - 400 K/mcL LAB HEMETOLOGY METHOD 08/06/2024 6:58 PM EDT [facility] MPV 9.4 7.0 - 11.0 FL LAB HEMETOLOGY METHOD [facility]24 [facility] NRBC 0.0 <1.0 % LAB [facility]EMETOLOGY METHOD [facility]24 6[facility] NRBC Absolute 0.00 <0.10 K/mcL LAB HEMETOLOGY METHOD 08/06/2024 6:58 PM [facility] Neutrophils Relative 43.7 % LAB HEMETOLOGY METHOD 08/06/2024 6:58 PM [facility] Lymphocytes Relative 36.5 % LAB HEMETOLOGY METHOD 08/06/2024 6:58 PM [facility] Monocytes Relative 9.9 % LAB HEMETOLOGY METHOD 08/06/2024 6:58 PM [facility] Eosinophils Relative 9.0 % LAB HEMETOLOGY METHOD 08/06/2024 6:58 PM [facility] Basophils Relative 0.4 % LAB HEMETOLOGY METHOD 08/06/2024 6:58 PM [facility] Immature Granulocytes Relative 0.5 % LAB HEMETOLOGY METHOD 08/06/2024 6:58 PM [facility] Neutrophils Absolute 2.43 1.50 - 7.00 K/mcL LAB HEMETOLOGY METHOD 08/06/2024 6:58 PM [facility] Lymphocytes Absolute 2.03 1.00 - 5.00 K/mcL LAB HEMETOLOGY METHOD 08/06/2024 6:58 PM [facility] Monocytes Absolute 0.55 0.20 - 1.00 K/mcL LAB HEMETOLOGY METHOD 08/06/2024 6:58 PM [facility] Eosinophils Absolute 0.50 0.00 - 0.50 K/mcL LAB HEMETOLOGY METHOD 08/06/2024 6:58 PM [facility] Basophils Absolute 0.02 0.00 - 0.20 K/mcL LAB HEMETOLOGY METHOD 08/06/2024 6:58 PM [facility] Immature Granulocytes Absolute 0.03 0.00 - 0.03 K/mcL LAB HEMETOLOGY METHOD 08/06/2024 6:58 PM [facility] Blood Venous blood specimen / Unknown Venipuncture / Unknown 08/06/2024 6:46 PM EDT 08/06/2024 6:54 PM EDT us Yohana Landeros LAB BLOOD ORDERABLES Jacklyn l Result Performing Organization Address [facility]/ZIP Co de Phone Number [facility] [address] [place] [address], [place] [phone] * (ABNORMAL) APTT (08/06/2024 6:46 PM EDT) aPTT 54.4(H) 24.1 - 39.3 sec LAB COAGULATION METHOD 08/06/2024 7:12 PM EDT [facility] Blood Venous blood specimen / Unknown Venipuncture / Unknown 08/06/2024 6:46 PM EDT 08/06/2024 6:54 PM EDT Yohana Landeros LAB BLOOD ORDERABLES Jacklyn l Result Performing Organization Address [facility] de Phone Number [facility] [address] [place] [address], [place] [phone] * (ABNORMAL) Prothrombin time with INR (08/06/2024 6:46 PM EDT) Protime 34.2(H) 10.6 - 13.9 sec LAB COAGULATION METHOD 08/06/2024 7:06 PM EDT [facility] INR 2.8 LAB COAGULATION METHOD 08/06/2024 7:06 PM EDT [facility] Blood Venous blood specimen / Unknown Venipuncture / Unknown 08/06/2024 6:46 PM EDT 08/06/2024 6:54 PM EDT Yohana Landeros LAB BLOOD ORDERABLES Jacklyn l Result Performing Organization Address City/[facility]/ZIP Co de Phone Number [facility] [address] [place] [address], [place] [phone] * (ABNORMAL) Comprehensive metabolic panel (08/06/2024 6:46 PM EDT) Sodium 140 133 - 145 mmol/L LAB CHEMISTRY METHOD 08/06/2024 7:36 PM EDT [facility] Potassium 4.5 3.5 - 5.5 mmol/L LAB CHEMISTRY METHOD 08/06/2024 7:36 PM EDT [facility] Chloride 108 96 - 110 mmol/L LAB CHEMISTRY METHOD 08/06/2024 7:36 PM EDT [facility] CO2 26 21 - 32 mmol/L LAB CHEMISTRY METHOD 08/06/2024 7:36 PM [facility] Anion Gap 6 3 - 11 LAB CHE[facility]STR[facility] Glucose 114(H) 70 - 100 mg/dL LAB CHEMISTRY METHOD 08/06/2024 7:36 PM [facility] BUN 21 5 - 25 mg/dL LAB CHEMISTRY METHOD 08/06/2024 7:36 PM [facility] Creatinine 1.30 0.70 - 1.30 mg/dL LAB CHEMISTRY METHOD [facility] eGFR 60 >=60 mL/min/1. 73m2 LAB CHEMISTRY METHOD 08/06/2024 7:36 PM EDT [facility] Comment:Calculation based on the Chronic Kidney Disease Epidemiology Collaboration (CKD-EPI) equation refit without adjustment for race. BUN/Creatinine Ratio 16.2 LAB CHEMISTRY METHOD 08/06/2024 7:36 PM [facility] Calcium 9.2 8.5 - 10.5 mg/dL LAB CHEMISTRY METHOD 08/06/2024 7:36 PM [facility] AST (SGOT) 25 10 - 42 unit/L LAB CHEMISTRY METHOD 08/06/2024 7:36 PM EDT [facility] ALT (SGPT) 34 10 - 60 unit/L LAB CHEMISTRY METHOD 08/06/2024 7:36 PM EDT [facility] Alkaline Phosphatase 110 42 - 121 unit/L LAB CHEMISTRY METHOD 08/06/2024 7:36 PM EDT [facility] Total Protein 7.5 6.0 - 8.0 g/dL LAB CHEMISTRY METHOD 08/06/2024 7:36 PM EDT [facility] Albumin 3.5 3.2 - 5.0 g/dL LAB CHEMISTRY METHOD 08/06/2024 7:36 PM EDT [facility] Total Bilirubin 0.2 0.0 - 1.4 mg/dL LAB CHEMISTRY METHOD 08/06/2024 7:36 PM EDT [facility] Blood Venous blood specimen / Unknown Venipuncture / Unknown 08/06/2024 6:46 PM EDT 08/06/2024 6:54 PM EDT us Javed Stephan Landeros DO LAB BLOOD ORDERABLES Jacklyn l Result [facility] [address] [place] [address], * Vascular US duplex lower extremity venous [...] dinora Result - Final * Colonoscopy (03/02/2021) [facility] Signature Colonoscopy no interpretation abstracted Anatomical Region Laterality Modality Other Historical Provider HEALTH MAINTENANCE Final Result from Last 3 Months or Most Recently Relevant to Health Maintenance Insurance [employer] - [place] MEDICARE ADVANTAGE Care Teams Coffee Roaster Relationship Specialty Start Date End Date Bonilla Grant DO [address], [place] PCP - General Family Medicine 03/10/24
--- OUTSIDE RECORDS SUMMARY | 2024-10-09 10:14 | XMS_ITS | Clinical Summary ---
Author Organization [facility] Address [address] [place] [address] Care Team Providers Care Kiln Burner Name Role Phone Bonilla Grant MD Primary Care Provider [phone] Allergies Active Allergy Reactions Criticality Noted Date [...] Passive Smoke Exposure: Never Smokeless Tobacco: Never [facility] [employer] Answer Date Recorded In the past 12 months has [employer], gas, oil, or water [employer] threatened to shut off services in your [...] any time in the past 12 m [facility], were you homeless or living in a [...] Health Maintenance Due Date Last Done Comments Advance Care Planning 1955 Hepatitis C Virus Screening 1955 DTaP/Tdap/Td Vaccines [...] 7:40 PM 02/28/2024 8:48 PM Care Teams Kiln Burner Relationship Specialty Start Date End Date Bonilla Grant MD [facility] [place] [address] PCP - General Psychiatry, General 02/28/24
== END 2024-10-09 10:03 | disposition home or self-care (01) ==
LOC: HO.PMC 09:14
PROVIDERS: PCP Family Medicine; Visit Provider Anesthesiology
DX: M43.10 Spondylolisthesis, site unspecified (principal); G96.00 Cerebrospinal fluid leak, unspecified; M47.816 Spondylosis without myelopathy or radiculopathy, lumbar region; M54.16 Radiculopathy, lumbar region; D17.79 Benign lipomatous neoplasm of other sites; M48.061 Spinal stenosis, lumbar region without neurogenic claudication; T85.192A Other mechanical complication of implanted electronic neurostimulator of spinal cord electrode (lead), initial encounter; T85.615A Breakdown (mechanical) of other nervous system device, implant or graft, initial encounter
CPT/HCPCS: 99214

== ENCOUNTER → 2024-10-09 09:14 | Outpatient (BNVA) | payer MEDICARE, SELFPAY | PROVIDERS: PCP Family Medicine; Visit Provider Anesthesiology | DX: M48.061 Spinal stenosis, lumbar region without neurogenic claudication (principal); M54.16 Radiculopathy, lumbar region; M47.816 Spondylosis without myelopathy or radiculopathy, lumbar region; G96.00 Cerebrospinal fluid leak, unspecified; M43.10 Spondylolisthesis, site unspecified; T85.192A Other mechanical complication of implanted electronic neurostimulator of spinal cord electrode (lead), initial encounter | CPT/HCPCS: 99212 ==

== ENCOUNTER 2024-11-19 11:01 | Outpatient (AMB) | payer MEDICARE, SELFPAY ==
[2024-11-19 11:04] VITALS: BP 138/79; PULSE 102; RESP 16; O2SAT 100; BMI 27.2
--- NOTE | 2024-11-19 11:04 | MHC.OFFVIS ---
Vital Signs 11/19/24 11:04 Height 5 ft 7 in Weight 174 lb BMI 27.2 BP 138/79 Blood Pressure Location Lt brachial Position Sitting Respiration 16 Pulse 102 H Pulse Source Pulse Oximeter Pulse Oximetry (%) 100 Oxygen Delivery Method Room Air Intake Visit Reasons: Pill Count Intake Note: Patient here for his first pill count of Tramadol. Per directions patient should have 72 pills. Patient presented 68 pills. Last took 10am. Laboratory Geneticist Required: No Allergies oxycodone Adverse Reaction (Severe, Verified 11/19/24 11:11) vertigo sulfamethoxazole (From Bactrim) Adverse Reaction (Severe, Verified 11/19/24 11:11) AFIB trimethoprim (From Bactrim) Adverse Reaction (Severe, Verified 11/19/24 11:11) AFIB HPI Comments Details: Carlito is back in my office for the pill count and the follow-up. He reports today that his pain is not very well controlled with current doses of the tramadol. He is being prescribed 50 mg tablet 4 times a day. The pill count is technically correct today he presented with 68 pills in his possession his supposed to bring 72 pills. His explained to me that 4 pills has been left at home in his pill organizer. I explained to them that it is paramount importance to bring all the pills for the pill count on the day of pill count. If the deficit will be more than 1 day worth of pills we will not be able to continue opioid prescription and he will be suspended. He also reported that with his SSRI medication he feels jittery and nervous. I decided to increase the dose of tramadol to 300 mg of tramadol a day by giving patient 3 times a day 100 mg of tramadol 2 pills 50 mg each. Unfortunately his insurance company does not cover extended release tramadol formulation. We could try pre approval of extended-release tramadol for the patient, alternatively we may consider oxymorphone or hydromorphone in minimal doses to help his pain. PRIOR: Carlito developed subcutaneous CSF leak after pain pump implantation. Revision was done on 04/18/2024 where the leak was discovered coming from the laminitomy and catheter insertion site. the duragen and neurosurgical glue were used to close the leak. never-the less expectations were high that the leak would return. The leg did return and explantation of the intrathecal pain pump and repair of the dura matter by Dr. Velasco were performed. Past Procedures: 04/18/2024: revision of the ItDD system 01/18/2024: Implantation of the I DDD with neurosurgical implanted intrathecal catheter via anatomy. 08/10/23: Attempt of ITDD implant-0% pain relief, procedure aborted 05/22/23: ITDD trial with Fentanyl -80% pain relief for 28 hours 04/20/23: Lumbar Nevro SCS trial-30-40% pain relief [facility] Medical History Acute respiratory failure Pulmonary embolus LAU (dyspnea on exertion) ROSS (obstructive sleep apnea) Arthritis Hiatal hernia Anxiety Depression Elevated cholesterol Atrial fibrillation Self-catheterizes urinary bladder Disorder of sacroiliac joint Lumbar spinal stenosis Thyroid disease GERD (gastroesophageal reflux disease) Cognitive disorder Back pain Bladder atony Osteoarthritis of hips, bilateral Hypothyroidism Hyperlipidemia Bipolar 1 disorder DVT (deep venous thrombosis) Lynette's thyroiditis Sacroiliac joint pain Bilateral lumbar radiculopathy Spondylosis of lumbar spine Bilateral hip pain Spondylolisthesis Surgical History History of surgery Previous back surgery History of hand surgery History of esophagogastroduodenoscopy (EGD) (~10/2023) Hx of umbilical hernia repair Hx of colonoscopy Social History Household Members: Spouse and Children Housing: House Are you a primary team primary care physician to a significant other at home: No Do you presently have visiting nurse or other home services: No Comment: COUNTS CORRECT Patient Tobacco Use Status: Never used Tobacco e-Cigarette/Vaping Use: Never Used service: No Review of Systems Const All systems reviewed & are unremarkable except as noted in HPI and below Physical Exam Vital Signs: Last Vital Signs Pulse 102 H 11/19/24 11:04 Resp 16 11/19/24 11:04 BP 138/79 11/19/24 11:04 Pulse Ox 100 11/19/24 11:04 Oxygen Delivery Method Room Air 11/19/24 11:04 BMI result Body Mass Index 27.2 General: Appears afebrile. Alert and oriented. Mood and affect appropriate. Follows and participates in conversation appropriately. Respiratory effort is unlabored. Able to transition from sit to stand unassisted. Ambulates with bilaterally normal heel strike and toe off. General: Yes no CVA tenderness Back/Spine/Pelvis Other: Midline incision wound-No pathological discharge, no swelling and no erythema. the upper buttock incision is also clean, no erythema, no edema, no local tenderness, however deep under the skin both of the incisions exhibits signs of ballottement of the fluid. Back: no CVA tenderness Assessment & Plan Assessment & Plan (1) Spondylolisthesis: Code(s): M43.10 - Spondylolisthesis, site unspecified Category: Medical (2) CSF leak: Code(s): G96.00 - Cerebrospinal fluid leak, unspecified Category: Medical (3) Spondylosis of lumbar spine: Code(s): M47.816 - Spondylosis without myelopathy or radiculopathy, lumbar region Category: Medical (4) Bilateral lumbar radiculopathy: Code(s): M54.16 - Radiculopathy, lumbar region Category: Medical (5) Epidural lipomatosis: Code(s): D17.79 - Benign lipomatous neoplasm of other sites Category: Medical (6) Spinal stenosis of lumbar region with radiculopathy: Code(s): M48.061 - Spinal stenosis, lumbar region without neurogenic claudication; M54.16 - Radiculopathy, lumbar region Category: Medical (7) Spinal cord stimulator dysfunction: Code(s): T85.192A - Other mechanical complication of implanted electronic neurostimulator of spinal cord electrode (lead), initial encounter Category: Medical (8) Malfunction of intrathecal infusion pump: Code(s): T85.615A - Breakdown (mechanical) of other nervous system device, implant or graft, initial encounter Category: Medical Plan After patient stopped his duloxetine I started him on tramadol 50 mg 4 times a day. Unfortunately he is jittery and nervous without his duloxetine. He feels depressed. I will try to increase tramadol to 100 mg 3 times a day, 2 pills of tramadol each time and see if this will help his depression as well as his pain. If this will not go well I probably would have to offer him minimal doses of hydromorphone or oxymorphone and return him to his psychiatrist to start on duloxetine. He previously was on carbamazepine as well and it helps his mood and anxiety. I recommended him to go to his so discuss the possibility of returning carbamazepine. Pill count is technical correct but he has 4 pills short. See discussion as above. The patient was strictly warned. Medications: New tramadol Partial fill only by patient's request. Do not fill until 12/07/2024 100 mg (2 x 50 mg) PO TID PRN 180 tabs 0RF pain 30 days Discontinued tramadol Discontinued Reason: Doctor's Order 50 mg PO Q6H 30 days PRN 120 tabs 1RF pain Coding Level of Care Code Est Pt Level 3 (90181) Diagnoses Spondylolisthesis M43.10 CSF leak G96.00 Spondylosis of lumbar spine M47.816 Bilateral lumbar radiculopathy M54.16 Epidural lipomatosis D17.79 Spinal stenosis of lumbar region with radiculopathy M48.061; M54.16 Spinal cord stimulator dysfunction T85.192A Malfunction of intrathecal infusion pump T85.771A
== END 2024-11-19 11:28 | disposition home or self-care (01) ==
PROVIDERS: PCP Family Medicine; Visit Provider Anesthesiology
DX: M43.10 Spondylolisthesis, site unspecified (principal); G96.00 Cerebrospinal fluid leak, unspecified; M47.816 Spondylosis without myelopathy or radiculopathy, lumbar region; M54.16 Radiculopathy, lumbar region; D17.79 Benign lipomatous neoplasm of other sites; M48.061 Spinal stenosis, lumbar region without neurogenic claudication; T85.192A Other mechanical complication of implanted electronic neurostimulator of spinal cord electrode (lead), initial encounter; T85.615A Breakdown (mechanical) of other nervous system device, implant or graft, initial encounter
CPT/HCPCS: 99213

== ENCOUNTER → 2024-11-19 11:01 | Outpatient (BNVA) | payer MEDICARE, SELFPAY | PROVIDERS: PCP Family Medicine; Visit Provider Anesthesiology | DX: M47.816 Spondylosis without myelopathy or radiculopathy, lumbar region (principal); M54.16 Radiculopathy, lumbar region; D17.79 Benign lipomatous neoplasm of other sites; M48.061 Spinal stenosis, lumbar region without neurogenic claudication; T85.192D Other mechanical complication of implanted electronic neurostimulator of spinal cord electrode (lead), subsequent encounter; T85.615D Breakdown (mechanical) of other nervous system device, implant or graft, subsequent encounter; G96.00 Cerebrospinal fluid leak, unspecified | CPT/HCPCS: 99212 ==

== ENCOUNTER 2024-12-09 13:40 | Outpatient (AMB) | payer MEDICARE, SELFPAY ==
--- NOTE | 2024-12-09 13:45 | A.OFFVIS_ITS ---
Intake Visit Reasons: Medication discussion Intake Note: Patient here just to discuss medication with Dr Lim. Franchise Business Consultant Required: No Allergies oxycodone Adverse Reaction (Severe, Verified 12/09/24 13:45) vertigo sulfamethoxazole (From Bactrim) Adverse Reaction (Severe, Verified 12/09/24 13:45) AFIB trimethoprim (From Bactrim) Adverse Reaction (Severe, Verified 12/09/24 13:45) AFIB HPI Comments Details: Carlito is back in my office to discuss medication which were prescribed to him last time. Apparently there was a misunderstanding. Patient was prescribed last time 100 mg of tramadol t.i.d. or every 8 hours and this script was waiting for him in the pharmacy. He showed me today he has while from previous prescription which was 50 mg every 6 hours tramadol and he told me that the script was not in the pharmacy, he also requested me to prescribe extended release tramadol to him. I explained to the patient that I personally on very rare occasion prescribed extended-release medications because they are not only dangerous in consideration of respiratory depression they are also more prone to addiction. Patient expressed understanding we called his pharmacy and we verify that his prescription is waiting for him in his [facility] pharmacy. PRIOR: Carlito developed subcutaneous CSF leak after pain pump implantation. Revision was done on 04/18/2024 where the leak was discovered coming from the laminitomy and catheter insertion site. the duragen and neurosurgical glue were used to close the leak. never-the less expectations were high that the leak would return. The leg did return and explantation of the intrathecal pain pump and repair of the dura matter by Dr. Velasco were performed. Past Procedures: 04/18/2024: revision of the ItDD system 01/18/2024: Implantation of the I DDD with neurosurgical implanted intrathecal catheter via anatomy. 08/10/23: Attempt of ITDD implant-0% pain relief, procedure aborted 05/22/23: ITDD trial with Fentanyl -80% pain relief for 28 hours 04/20/23: Lumbar Nevro SCS trial-30-40% pain relief [facility] Medical History Acute respiratory failure Pulmonary embolus LAU (dyspnea on exertion) ROSS (obstructive sleep apnea) Arthritis Hiatal hernia Anxiety Depression Elevated cholesterol Atrial fibrillation Self-catheterizes urinary bladder Disorder of sacroiliac joint Lumbar spinal stenosis Thyroid disease GERD (gastroesophageal reflux disease) Cognitive disorder Back pain Bladder atony Osteoarthritis of hips, bilateral Hypothyroidism Hyperlipidemia Bipolar 1 disorder DVT (deep venous thrombosis) Lynette's thyroiditis Sacroiliac joint pain Bilateral lumbar radiculopathy Spondylosis of lumbar spine Bilateral hip pain Spondylolisthesis Surgical History History of surgery Previous back surgery History of hand surgery History of esophagogastroduodenoscopy (EGD) (~10/2023) Hx of umbilical hernia repair Hx of colonoscopy Social History Household Members: Spouse and Children Housing: House Are you a primary career information specialist to a significant other at home: No Do you presently have visiting nurse or other home services: No Comment: COUNTS CORRECT Patient Tobacco Use Status: Never used Tobacco e-Cigarette/Vaping Use: Never Used service: No Review of Systems Const All systems reviewed & are unremarkable except as noted in HPI and below Physical Exam General: Appears afebrile. Alert and oriented. Mood and affect appropriate. Follows and participates in conversation appropriately. Respiratory effort is unlabored. Able to transition from sit to stand unassisted. Ambulates with bilaterally normal heel strike and toe off. General: Yes no CVA tenderness Back/Spine/Pelvis Other: Midline incision wound-No pathological discharge, no swelling and no erythema. the upper buttock incision is also clean, no erythema, no edema, no local tenderness, however deep under the skin both of the incisions exhibits signs of ballottement of the fluid. Back: no CVA tenderness Assessment & Plan Assessment & Plan (1) Spondylolisthesis: Code(s): M43.10 - Spondylolisthesis, site unspecified Category: Medical (2) CSF leak: Code(s): G96.00 - Cerebrospinal fluid leak, unspecified Category: Medical (3) Spondylosis of lumbar spine: Code(s): M47.816 - Spondylosis without myelopathy or radiculopathy, lumbar region Category: Medical (4) Bilateral lumbar radiculopathy: Code(s): M54.16 - Radiculopathy, lumbar region Category: Medical (5) Epidural lipomatosis: Code(s): D17.79 - Benign lipomatous neoplasm of other sites Category: Medical (6) Spinal stenosis of lumbar region with radiculopathy: Code(s): M48.061 - Spinal stenosis, lumbar region without neurogenic claudication; M54.16 - Radiculopathy, lumbar region Category: Medical (7) Spinal cord stimulator dysfunction: Code(s): T85.192A - Other mechanical complication of implanted electronic neurostimulator of spinal cord electrode (lead), initial encounter Category: Medical (8) Malfunction of intrathecal infusion pump: Code(s): T85.615A - Breakdown (mechanical) of other nervous system device, implant or graft, initial encounter Category: Medical Plan For now I will continue tramadol see discussion as above. Patient did not realize that the new prescription was already sent to his pharmacy. I will see this patient for pill count in in 8 days. Coding Level of Care Code Tele Est Pt Level 3 (28989) Diagnoses Spondylolisthesis M43.10 CSF leak G96.00 Spondylosis of lumbar spine M47.816 Bilateral lumbar radiculopathy M54.16 Epidural lipomatosis D17.79 Spinal stenosis of lumbar region with radiculopathy M48.061; M54.16 Spinal cord stimulator dysfunction T85.192A Malfunction of intrathecal infusion pump T85.611Q
--- OUTSIDE RECORDS SUMMARY | 2024-12-09 17:44 | XMS_ITS | Clinical Summary ---
Author Organization [facility] Address [address] [place] [address] Phone Care Team Providers Care Voip Network Technician Name Role Phone Bonilla Grant Primary Care Provider [phone] Allergies Active Allergy Reactions Criticality Noted Date [...] a day. 60 tablet 3 09/05/2024 Active Medical History Medical History Date Comments DVT, lower extremity ([facility] V24, [facility] V28) Bipolar 1 disorder ([facility] V24, [facility] V28) Hyperlipidemia Hypothyroidism Lumbar spinal stenosis GI disease Pulmonary emboli ([facility] V24, [facility] V28) Umbilical hernia Family History Medical History [...] RSV Immunization Adult Patients (1 - Risk 50-74 years 1-dose series) 04/24/2007 DTaP,Tdap,and Td Vaccines (2 - Td or Tdap) 07/13/2021 07/14/2011 Cholesterol Screening (Lipid Panel) 01/15/2022 Hepatitis C Screening 01/15/2022 Medicare Annual Wellness Visit 01/15/2022 Social Influencers of Health Screening 01/15/2022 Falls Risk Assessment 2022 Depression Screening 02/13/2024 COVID-19 Vaccine (3 - 2024-2 6 season) 2024 04/05/2020, 03/15/2020 Influenza Vaccine (#1) 2024 Colorectal [...] CROSS - [place] MED[place] AD[place] Care Teams Voip Network Technician Relationship Specialty Start Date End Date Bonilla Grant DO [address] [place], [place] PCP - General Family Medicine 03/10/24
--- OUTSIDE RECORDS SUMMARY | 2024-12-09 17:44 | XMS_ITS | Clinical Summary ---
Author Organization [facility] Address [address] [place] [address] Care Team Providers Care Prison Warden Name Role Phone Bonilla Grant MD Primary Care Provider [phone] Allergies Active Allergy Reactions Criticality Noted Date [...] Exposure: Never Smokeless Tobacco: Never [facility] [employer] Answer Date Recorded In the past 12 months has [employer], gas, oil, or water [employer] threatened to shut off services in your [...] any time in the past 12 [facility], were you homeless or living in a chcf (including now)? No 02/29/2024 Sex and Gender [...] Vaccine (1 of 2) 04/24/2007 Influenza Vaccine 09/12/2024 COVID-19 Vaccine ( - 2023-2 5 season) 2024 RSV Vaccine 50 years and old er and Patients (1 [...] 7:40 PM 02/28/2024 8:48 PM Care Teams Prison Warden Relationship Specialty Start Date End Date Bonilla Grant MD [facility] [place] [address] PCP - General Psychiatry, General 02/28/24
== END 2024-12-09 13:58 | disposition home or self-care (01) ==
LOC: HO.PMCPRC 13:40
PROVIDERS: PCP Internal Medicine; Visit Provider Anesthesiology
DX: G96.00 Cerebrospinal fluid leak, unspecified (principal); M47.26 Other spondylosis with radiculopathy, lumbar region; M48.061 Spinal stenosis, lumbar region without neurogenic claudication; M43.10 Spondylolisthesis, site unspecified; D17.79 Benign lipomatous neoplasm of other sites; T85.192A Other mechanical complication of implanted electronic neurostimulator of spinal cord electrode (lead), initial encounter; T85.615A Breakdown (mechanical) of other nervous system device, implant or graft, initial encounter
CPT/HCPCS: 99213

== ENCOUNTER → 2024-12-09 13:40 | Outpatient (BNVA) | payer MEDICARE, SELFPAY | PROVIDERS: PCP Internal Medicine; Visit Provider Anesthesiology | DX: M47.816 Spondylosis without myelopathy or radiculopathy, lumbar region (principal); M43.10 Spondylolisthesis, site unspecified; M54.16 Radiculopathy, lumbar region; M48.061 Spinal stenosis, lumbar region without neurogenic claudication; G96.00 Cerebrospinal fluid leak, unspecified; D17.79 Benign lipomatous neoplasm of other sites; T85.192D Other mechanical complication of implanted electronic neurostimulator of spinal cord electrode (lead), subsequent encounter; T85.615D Breakdown (mechanical) of other nervous system device, implant or graft, subsequent encounter | CPT/HCPCS: 99212 ==

== ENCOUNTER 2024-12-17 13:43 | Outpatient (AMB) | payer MEDICARE, SELFPAY ==
[2024-12-17 13:44] VITALS: BP 136/89; PULSE 108; RESP 16; O2SAT 99; BMI 27.1
--- NOTE | 2024-12-17 13:44 | A.OFFVIS_ITS ---
Vital Signs 12/17/24 13:44 Height 5 ft 7 in Weight 173 lb BMI 27.1 BP 136/89 Blood Pressure Location Lt brachial Position Sitting Respiration 16 Pulse 108 H Pulse Oximetry (%) 99 Oxygen Delivery Method Room Air Intake Visit Reasons: Pill Count Intake Note: Patient here for pill count routine of Tramadol. Per Directions patient should have 126 pills. Patient presented 135 pills. Last took 12noon. Rn Stars Required: No Accompanied by: Self / Same As Patient Allergies oxycodone Adverse Reaction (Severe, Verified 12/17/24 13:56) vertigo sulfamethoxazole (From Bactrim) Adverse Reaction (Severe, Verified 12/17/24 13:56) AFIB trimethoprim (From Bactrim) Adverse Reaction (Severe, Verified 12/17/24 13:56) AFIB HPI Comments Details: Carlito is back in my office with complains on inadequate pain relief on tramadol. He was prescribed 100 mg 3 times a day. His pill count was correct with 135 pills in his possession while he would supposed to have only 125. However he states that during his medication take he has about 1-2 hours when he feels pain adequately controlled. After that the pain returns and he becomes very agitated. Because we stopped his duloxetine while starting him on tramadol his emotional stability is compromised. I decided to stop tramadol and start him on hydromorphone. This medication has no interactions with his duloxetine therefore he will call his psychiatrist and request to fill up the medication as it was before. I will see this patient in 15 days for the 1st hydromorphone pill count. PRIOR: Carlito developed subcutaneous CSF leak after pain pump implantation. Revision was done on 04/18/2024 where the leak was discovered coming from the laminitomy and catheter insertion site. the duragen and neurosurgical glue were used to close the leak. never-the less expectations were high that the leak would return. The leg did return and explantation of the intrathecal pain pump and repair of the dura matter by Dr. Velasco were performed. Past Procedures: 04/18/2024: revision of the ItDD system 01/18/2024: Implantation of the I DDD with neurosurgical implanted intrathecal catheter via anatomy. 08/10/23: Attempt of ITDD implant-0% pain relief, procedure aborted 05/22/23: ITDD trial with Fentanyl -80% pain relief for 28 hours 04/20/23: Lumbar Nevro SCS trial-30-40% pain relief [facility] Medical History Acute respiratory failure Pulmonary embolus LAU (dyspnea on exertion) ROSS (obstructive sleep apnea) Arthritis Hiatal hernia Anxiety Depression Elevated cholesterol Atrial fibrillation Self-catheterizes urinary bladder Disorder of sacroiliac joint Lumbar spinal stenosis Thyroid disease GERD (gastroesophageal reflux disease) Cognitive disorder Back pain Bladder atony Osteoarthritis of hips, bilateral Hypothyroidism Hyperlipidemia Bipolar 1 disorder DVT (deep venous thrombosis) Lynette's thyroiditis Sacroiliac joint pain Bilateral lumbar radiculopathy Spondylosis of lumbar spine Bilateral hip pain Spondylolisthesis Surgical History History of surgery Previous back surgery History of hand surgery History of esophagogastroduodenoscopy (EGD) (~10/2023) Hx of umbilical hernia repair Hx of colonoscopy Social History Household Members: Spouse and Children Housing: House Are you a primary acute care surgeon to a significant other at home: No Do you presently have visiting nurse or other home services: No Comment: COUNTS CORRECT Patient Tobacco Use Status: Never used Tobacco e-Cigarette/Vaping Use: Never Used service: No Review of Systems Const All systems reviewed & are unremarkable except as noted in HPI and below Physical Exam Vital Signs: Last Vital Signs Pulse 108 H 12/17/24 13:44 Resp 16 12/17/24 13:44 BP 136/89 12/17/24 13:44 Pulse Ox 99 12/17/24 13:44 Oxygen Delivery Method Room Air 12/17/24 13:44 BMI result Body Mass Index 27.1 General: Appears afebrile. Alert and oriented. Mood and affect appropriate. Follows and participates in conversation appropriately. Respiratory effort is unlabored. Able to transition from sit to stand unassisted. Ambulates with bilaterally normal heel strike and toe off. General: Yes no CVA tenderness Back/Spine/Pelvis Other: Midline incision wound-No pathological discharge, no swelling and no erythema. the upper buttock incision is also clean, no erythema, no edema, no local tenderness, however deep under the skin both of the incisions exhibits signs of ballottement of the fluid. Back: no CVA tenderness Assessment & Plan Assessment & Plan (1) Spondylolisthesis: Code(s): M43.10 - Spondylolisthesis, site unspecified Category: Medical (2) CSF leak: Code(s): G96.00 - Cerebrospinal fluid leak, unspecified Category: Medical (3) Spondylosis of lumbar spine: Code(s): M47.816 - Spondylosis without myelopathy or radiculopathy, lumbar region Category: Medical (4) Bilateral lumbar radiculopathy: Code(s): M54.16 - Radiculopathy, lumbar region Category: Medical (5) Epidural lipomatosis: Code(s): D17.79 - Benign lipomatous neoplasm of other sites Category: Medical (6) Spinal stenosis of lumbar region with radiculopathy: Code(s): M48.061 - Spinal stenosis, lumbar region without neurogenic claudication; M54.16 - Radiculopathy, lumbar region Category: Medical (7) Spinal cord stimulator dysfunction: Code(s): T85.192A - Other mechanical complication of implanted electronic neurostimulator of spinal cord electrode (lead), initial encounter Category: Medical (8) Malfunction of intrathecal infusion pump: Code(s): T85.615A - Breakdown (mechanical) of other nervous system device, implant or graft, initial encounter Category: Medical Plan Discussion of tramadol and duloxetine see as above. I will start him on hydromorphone 2 mg 4 times a day. I will see him in 15 days. Medications: New hydromorphone Partial Fill upon patient request. 2 mg PO Q6H PRN 120 tabs 0RF pain 30 days Discontinued tramadol Partial fill only by patient's request. Do not fill until 12/07/2024 Discontinued Reason: Doctor's Order 100 mg (2 x 50 mg) PO TID 30 days PRN 180 tabs 0RF pain Coding Level of Care Code Est Pt Level 3 (21161) Diagnoses Spondylolisthesis M43.10 CSF leak G96.00 Spondylosis of lumbar spine M47.816 Bilateral lumbar radiculopathy M54.16 Epidural lipomatosis D17.79 Spinal stenosis of lumbar region with radiculopathy M48.061; M54.16 Spinal cord stimulator dysfunction T85.192A Malfunction of intrathecal infusion pump T85.768O
--- OUTSIDE RECORDS SUMMARY | 2024-12-17 16:36 | XMS_ITS | Clinical Summary ---
Author Organization [facility] Address [address] [place] [address] Phone Care Team Providers Care Shed Workers Supervisor Name Role Phone Bonilla Grant Primary Care Provider [phone] Allergies Active Allergy Reactions Criticality Noted Date [...] Medical History Date Comments DVT, lower extremity ([facility] V24, [facility] V28) Bipolar 1 disorder ([facility] V24, [facility] V28) Hyperlipidemia Hypothyroidism Lumbar spinal stenosis GI disease Pulmonary emboli ([facility] V24, [facility] V28) Umbilical hernia Family History Medical History [...] CROSS - [place] Care Teams Shed Workers Supervisor Relationship Specialty Start Date End Date Bonilla Grant DO [address] [place], [place] PCP - General Family Medicine 03/10/24
--- OUTSIDE RECORDS SUMMARY | 2024-12-17 16:36 | XMS_ITS | Clinical Summary ---
Author Organization [facility] Address [address] [place] [address] Care Team Providers Care Overlay Plastician Name Role Phone Bonilla Grant MD Primary Care Provider [phone] Allergies Active Allergy Reactions Criticality Noted Date [...] Passive Smoke Exposure: Never Smokeless Tobacco: Never [facility] [employer] Answer Date Recorded In the past 12 months has [employer], gas, oil, or water [employer] threatened to shut off services in your [...] time in the past 12 m [facility], were you homeless or living [...] 7:40 PM 02/28/2024 8:48 PM Care Teams Overlay Plastician Relationship Specialty Start Date End Date Bonilla Grant MD [facility] [place] [address] PCP - General Psychiatry, General 02/28/24
== END 2024-12-17 14:07 | disposition home or self-care (01) ==
LOC: HO.PMC 13:43
PROVIDERS: PCP Internal Medicine; Visit Provider Anesthesiology
DX: M48.061 Spinal stenosis, lumbar region without neurogenic claudication (principal); M54.16 Radiculopathy, lumbar region; M47.816 Spondylosis without myelopathy or radiculopathy, lumbar region; G96.00 Cerebrospinal fluid leak, unspecified; M43.10 Spondylolisthesis, site unspecified; D17.79 Benign lipomatous neoplasm of other sites; T85.192A Other mechanical complication of implanted electronic neurostimulator of spinal cord electrode (lead), initial encounter; T85.615A Breakdown (mechanical) of other nervous system device, implant or graft, initial encounter
CPT/HCPCS: 99213

== ENCOUNTER → 2024-12-17 13:43 | Outpatient (BNVA) | payer MEDICARE, SELFPAY | PROVIDERS: PCP Internal Medicine; Visit Provider Anesthesiology | DX: M48.061 Spinal stenosis, lumbar region without neurogenic claudication (principal); G96.00 Cerebrospinal fluid leak, unspecified; M43.10 Spondylolisthesis, site unspecified; M47.816 Spondylosis without myelopathy or radiculopathy, lumbar region; M54.16 Radiculopathy, lumbar region; D17.79 Benign lipomatous neoplasm of other sites; T85.192D Other mechanical complication of implanted electronic neurostimulator of spinal cord electrode (lead), subsequent encounter; T85.615D Breakdown (mechanical) of other nervous system device, implant or graft, subsequent encounter | CPT/HCPCS: 99212 ==

== ENCOUNTER 2025-01-01 11:13 | Outpatient (AMB) | payer MEDICARE, SELFPAY ==
--- NOTE | 2025-01-01 11:19 | A.OFFVIS_ITS ---
Vital Signs 01/01/25 11:20 Height 5 ft 7 in Weight 177 lb BMI 27.7 BP 147/83 H Blood Pressure Location Lt brachial Position Sitting Respiration 16 Pulse 86 Pulse Source Pulse Oximeter Pulse Oximetry (%) 97 Oxygen Delivery Method Room Air Intake Visit Reasons: Pill Count per Dr. Lim Intake Note: Patient here for a pill count of hydromorphone per directions patient should have 60 pills. Patient presented 63 pills. Last took 9am. Forms Builder Required: No Allergies oxycodone Adverse Reaction (Severe, Verified 01/01/25 11:20) vertigo sulfamethoxazole (From Bactrim) Adverse Reaction (Severe, Verified 01/01/25 11:20) AFIB trimethoprim (From Bactrim) Adverse Reaction (Severe, Verified 01/01/25 11:20) AFIB HPI Comments Details: Carlito is back in my office for the follow-up and pill counts. His supposed to have 60 pills in his possession. He presented with 63 pills in his possession. Therefore his pill count is correct. He reports that hydromorphone helps his pain much better than tramadol. Besides of that he does not have emotional roller coaster he had with tramadol. I recommended the patient to continue with current doses of the medication. He reports adequate pain control when he is at rest however reports more severe pain with activities. I will see patient in 1 month. PRIOR: Carlito developed subcutaneous CSF leak after pain pump implantation. Revision was done on 04/18/2024 where the leak was discovered coming from the laminitomy and catheter insertion site. the duragen and neurosurgical glue were used to close the leak. never-the less expectations were high that the leak would return. The leg did return and explantation of the intrathecal pain pump and repair of the dura matter by Dr. Velasco were performed. Past Procedures: 04/18/2024: revision of the ItDD system 01/18/2024: Implantation of the I DDD with neurosurgical implanted intrathecal catheter via anatomy. 08/10/23: Attempt of ITDD implant-0% pain relief, procedure aborted 05/22/23: ITDD trial with Fentanyl -80% pain relief for 28 hours 04/20/23: Lumbar Nevro SCS trial-30-40% pain relief COUNTS INCLUDE [facility] BEDS AT THE [facility] Medical History Acute respiratory failure Pulmonary embolus LAU (dyspnea on exertion) ROSS (obstructive sleep apnea) Arthritis Hiatal hernia Anxiety Depression Elevated cholesterol Atrial fibrillation Self-catheterizes urinary bladder Disorder of sacroiliac joint Lumbar spinal stenosis Thyroid disease GERD (gastroesophageal reflux disease) Cognitive disorder Back pain Bladder atony Osteoarthritis of hips, bilateral Hypothyroidism Hyperlipidemia Bipolar 1 disorder DVT (deep venous thrombosis) Lynette's thyroiditis Sacroiliac joint pain Bilateral lumbar radiculopathy Spondylosis of lumbar spine Bilateral hip pain Spondylolisthesis Surgical History History of surgery Previous back surgery History of hand surgery History of esophagogastroduodenoscopy (EGD) (~10/2023) Hx of umbilical hernia repair Hx of colonoscopy Social History Household Members: Spouse and Children Housing: House Are you a primary point of care technician to a significant other at home: No Do you presently have visiting nurse or other home services: No Comment: COUNTS CORRECT Patient Tobacco Use Status: Never used Tobacco e-Cigarette/Vaping Use: Never Used service: No Review of Systems Const All systems reviewed & are unremarkable except as noted in HPI and below Physical Exam Vital Signs: Last Vital Signs Pulse 86 01/01/25 11:20 Resp 16 01/01/25 11:20 BP 147/83 H 01/01/25 11:20 Pulse Ox 97 01/01/25 11:20 Oxygen Delivery Method Room Air 01/01/25 11:20 BMI result Body Mass Index 27.7 General: Appears afebrile. Alert and oriented. Mood and affect appropriate. Follows and participates in conversation appropriately. Respiratory effort is unlabored. Able to transition from sit to stand unassisted. Ambulates with bilaterally normal heel strike and toe off. General: Yes no CVA tenderness Back/Spine/Pelvis Other: Midline incision wound-No pathological discharge, no swelling and no erythema. the upper buttock incision is also clean, no erythema, no edema, no local tenderness, however deep under the skin both of the incisions exhibits signs of ballottement of the fluid. Back: no CVA tenderness Assessment & Plan Assessment & Plan (1) Spondylolisthesis: Code(s): M43.10 - Spondylolisthesis, site unspecified Category: Medical (2) CSF leak: Code(s): G96.00 - Cerebrospinal fluid leak, unspecified Category: Medical (3) Spondylosis of lumbar spine: Code(s): M47.816 - Spondylosis without myelopathy or radiculopathy, lumbar region Category: Medical (4) Bilateral lumbar radiculopathy: Code(s): M54.16 - Radiculopathy, lumbar region Category: Medical (5) Epidural lipomatosis: Code(s): D17.79 - Benign lipomatous neoplasm of other sites Category: Medical (6) Spinal stenosis of lumbar region with radiculopathy: Code(s): M48.061 - Spinal stenosis, lumbar region without neurogenic claudication; M54.16 - Radiculopathy, lumbar region Category: Medical (7) Spinal cord stimulator dysfunction: Code(s): T85.192A - Other mechanical complication of implanted electronic neurostimulator of spinal cord electrode (lead), initial encounter Category: Medical (8) Malfunction of intrathecal infusion pump: Code(s): T85.615A - Breakdown (mechanical) of other nervous system device, implant or graft, initial encounter Category: Medical Plan Pill count is correct today. The patient reports better pain control with hydromorphone compared to tramadol. we will continue with the hydromorphone at this time. His doses 2 mg every 6 hours. I explained to him that although i t sounds rather innocent hydromorphone MME is 1 to 4 fo rmorphine. So 8 mg of hydromorphone a day is equal to 32 mg of morphine a day. The patient has multiple side effects on hydrocodone and oxycodone. Unable to tolerate those medications. I will refill his script of hydromorphone which is due on 01/16/2025. He was prescribed Narcan on 02/17/2024. Medications: Refilled hydromorphone Partial Fill upon patient request. 2 mg PO Q6H PRN 120 tabs 0RF pain 30 days Coding Level of Care Code Est Pt Level 3 (32654) Diagnoses Spondylolisthesis M43.10 CSF leak G96.00 Spondylosis of lumbar spine M47.816 Bilateral lumbar radiculopathy M54.16 Epidural lipomatosis D17.79 Spinal stenosis of lumbar region with radiculopathy M48.061; M54.16 Spinal cord stimulator dysfunction T85.192A Malfunction of intrathecal infusion pump T85.823N
[2025-01-01 11:20] VITALS: BP 147/83; PULSE 86; RESP 16; O2SAT 97; BMI 27.7
--- OUTSIDE RECORDS SUMMARY | 2025-01-01 17:28 | XMS_ITS | Clinical Summary ---
Author Organization [facility] Address [address] [place] [address] Phone Care Team Providers Care Assistant Baseball Coach Name Role Phone Bonilla Grant Primary Care Provider [phone] Allergies Active Allergy Reactions Criticality Noted Date [...] by mouth 2 times daily. 4 Active apixaban (ELIQUIS) starter pack Take 2 tablets (10 mg total) by mouth 2 (two) times a day for 7 days. Then take 1 tablet (5 mg total) by mouth 2 (two) times a day. 74 tablet 5 Active buprenorphine (BUTRANS) 7.5 mcg/hour 5 Active Eliquis 5 mg tablet Take 1 tablet (5 mg total) by mouth 2 (two) times a day. 60 tablet 5 Active apixaban (ELIQUIS) 5 mg tablet Take 1 tablet (5 mg total) by mouth 2 (two) times a day. 60 tablet 3 5 12/23/19 25 Discontinued Medical History Medical History Date Comments DVT, lower extremity ([facility] V24, [facility] V28) Bipolar 1 disorder ([facility] V24, [facility] V28) Hyperlipidemia Hypothyroidism Lumbar spinal stenosis GI disease Pulmonary emboli ([facility] V24, [facility] V28) Umbilical hernia Family History Medical [...] CROSS - [place] MEDICARE [employer] Care Teams Assistant Baseball Coach Relationship Specialty Start Date End Date Bonilla Grant DO [address] [place], [place] PCP - General Family Medicine 03/10/24
--- OUTSIDE RECORDS SUMMARY | 2025-01-01 17:28 | XMS_ITS | Clinical Summary ---
Author Organization [facility] Address [address] [place] [address] Care Team Providers Care Plastics Plater Name Role Phone Bonilla Grant MD Primary Care Provider [phone] Allergies Active Allergy Reactions Criticality Noted Date [...] Smoke Exposure: Never Smokeless Tobacco: Never [facility] [employer] Answer Date Recorded In the past 12 months has [employer], gas, oil, or water [employer] threatened to shut off services in your [...] any time in the past 12 m [facility], were you homeless or living in a long-term (including now)? No 02/29/2024 Sex and Gender [...] 7:40 PM 02/28/2024 8:48 PM Care Teams Plastics Plater Relationship Specialty Start Date End Date Bonilla Grant MD [facility] [place] [address] PCP - General Psychiatry, General 02/28/24
== END 2025-01-01 11:51 | disposition home or self-care (01) ==
LOC: HO.PMC 11:14
PROVIDERS: PCP Internal Medicine; Visit Provider Anesthesiology
DX: M47.816 Spondylosis without myelopathy or radiculopathy, lumbar region (principal); M54.16 Radiculopathy, lumbar region; M43.10 Spondylolisthesis, site unspecified; G96.00 Cerebrospinal fluid leak, unspecified; D17.79 Benign lipomatous neoplasm of other sites; M48.061 Spinal stenosis, lumbar region without neurogenic claudication; T85.192A Other mechanical complication of implanted electronic neurostimulator of spinal cord electrode (lead), initial encounter; T85.615A Breakdown (mechanical) of other nervous system device, implant or graft, initial encounter
CPT/HCPCS: 99213

== ENCOUNTER → 2025-01-01 11:13 | Outpatient (BNVA) | payer MEDICARE, SELFPAY | PROVIDERS: PCP Internal Medicine; Visit Provider Anesthesiology | DX: M47.816 Spondylosis without myelopathy or radiculopathy, lumbar region (principal); M43.10 Spondylolisthesis, site unspecified; G96.00 Cerebrospinal fluid leak, unspecified; M54.16 Radiculopathy, lumbar region; M48.061 Spinal stenosis, lumbar region without neurogenic claudication | CPT/HCPCS: 99212 ==

== ENCOUNTER 2025-01-29 14:50 | Outpatient (AMB) | payer MEDICARE, SELFPAY ==
--- OUTSIDE RECORDS SUMMARY | 2025-01-28 23:59 | XMS_ITS | Continuity of Care Document ---
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(Discharge Diagnosis) - 01/21/25 Hypothyroidism(Discharge Diagnosis) - 01/21/25 Hyperlipidemia(Discharge Diagnosis) - 01/21/25 Herndon esophagus(Discharge Diagnosis) - 01/21/25 Chronic bipolar disorder(Discharge Diagnosis) - 01/21/25 Attending Physician: Pascual Cordoba MD Encounter Type: Office Visit Allergies, Adverse Reactions, Alerts Substance Criticality Severity Reaction Reaction Severity Status Bactrim Active oxyCODONE vertigo Active OxyCONTIN Vertigo Active Functional Status Functional Status Assessment Assessment Assessment Component Result Effecti ve Date STEADI 3 Score STEADI 3 Score 3 01/21/25 Stay Independent total score [Stay Indepe ndent] 7 01/21/25 Functional Status Assessment Assessment Assessment Component Result Effecti Disability status [CUBS] I'm Thriving - no identified disability 01/21/25 Are you blind, or do you have serious difficulty seeing, even when wearing glasses No 01/21/25 Difficulty communica ting in usual language No 01/21/25 Are you deaf, or do you have serious difficulty hearing No 01/21/25 Do you need any rogelio tional assistance or accommodations during your visit No 01/21/25 Because of a physica l, mental, or emotional condition, do you have difficulty doing errands alone such as visiting a physician's office or shopping No 01/21/25 Do you have difficul ty dressing or bathing No 01/21/25 Do you have serious difficulty walking or climbing stairs No 01/21/25 Because of a physica l, mental, or emotional condition, do you have serious difficulty concentrating, remembering, or making decisions Yes 01/21/25 Difficulty Reading O r Writing No 01/21/25 Immunizations Given and Recorded Vaccine Date Status Refusal Reason zoster vaccine, inactivated 05/26/21 Recorded zoster vaccine, inactivated 10/01/20 Recorded SARS-CoV-2 (COVID-19) mRNA BNT-162b2 vac 04/05/20 Recorded SARS-CoV-2 (COVID-19) mRNA BNT-162b2 vac 03/15/20 Recorded tetanus/diphtheria/pertussis, acel(Tdap) 07/14/11 Given Medications atorvastatin 20 mg oral tablet 1 tablet, By Mouth, Daily, # 90 tablet, 3 Refills, Maintenance, 01/21/25 3:15:00 PM EST, [facility] # [id number], 170.1, cm, 01/21/25 14:36:00 EST, Height, 82.5, kg, 11/05/23 9:56:00 EDT, Dry Weight Start Date: 01/21/25 Status: Ordered Medication Dispense Status: Completed Quantity: 90.0 Unit: tablet Total Allowed Fills: 4 Fills Dispensed: 0 Indications: Hyperlipidemia, unspecified; Carbamazepine Tablet 200 mg, two tablets at PM, Maintenance, 06/11/12 3:33:53 AM EDT Start Date: 06/11/12 Status: Ordered Medication Dispense Status: Completed Total Allowed Fills: 1 Fills Dispensed: 0 cyclobenzaprine 10 mg oral tablet 10 mg, 1, tablet, By Mouth, 3 times a day, PRN, # 30 tablet, Refills 0, Maintenance, for spasm, 01/21/25 2:43:00 PM EST, Partial fill upon patient request if the prescription is for a schedule II opioid drug. Start Date: 01/21/25 Status: Ordered Medication Dispense Status: Completed Quantity: 30.0 Unit: tablet Total Allowed Fills: 1 Fills Dispensed: 0 D- Mannose 2000mg D- Mannose 2000mg, See Instructions, Refills 0, Tot. Refills 0, Maintenance, 08/05/24 11:33:00 AM EDT, Supply Start Date: 08/05/24 Status: Ordered Medication Dispense Status: Completed Total Allowed Fills: 1 Fills Dispensed: 0 duloxetine 30 mg oral enteric coated capsule 1 capsule = 30 mg, By Mouth, Daily, # 30 capsule, 0 Refills, Maintenance, 07/16/23 12:51:00 PM EDT, Partial fill upon patient request if the prescription is for a schedule II opioid drug. Start Date: 07/16/23 Status: Ordered Medication Dispense Status: Completed Quantity: 30.0 Unit: capsule Total Allowed Fills: 1 Fills Dispensed: 0 duloxetine 60 mg oral enteric coated capsule 1 capsule = 60 mg, By Mouth, Daily, take together with the 30 mg, # 30 capsule, 0 Refills, Maintenance, 08/05/24 11:24:00 AM EDT, EC Capsule, Partial fill upon patient request if the prescription is for a schedule II opioid drug. Start Date: 08/05/24 Status: Ordered Medication Dispense Status: Completed Quantity: 30.0 Unit: capsule Total Allowed Fills: 1 Fills Dispensed: 0 Eliquis 5 mg oral tablet 1 tablet = 5 mg, By Mouth, 2 times a day, # 180 tablet, 0 Refills, Maintenance, 01/21/25 2:44:00 PMEST, Tablet, Partial fill upon patient request if the prescription is for a schedule II opioid drug. Start Date: 01/21/25 Status: Ordered Medication Dispense Status: Completed Quantity: 180.0 Unit: tablet Total Allowed Fills: 1 Fills Dispensed: 0 famotidine 20 mg oral tablet 20 mg, 1, tablet, By Mouth, 2 times a day, PRN, # 60 tablet, Refills 6, Tot. Refills 6, Maintenance, breakthrough GERD, 01/16/25 9:46:00 AM EST, Route to Pharmacy Electronically, [facility] # [id number], Partial fill upon patient request if the prescription is for a schedule II opioid drug., 170.1, cm, 08/05/24 11:13:00 EDT, Height, 82.5, kg, 11/05/23 9:56:00 EDT, Dry Weight Start Date: 01/16/25 Status: Ordered Medication Dispense Status: Completed Quantity: 60.0 Unit: tablet Total Allowed Fills: 7 Fills Dispensed: 0 Indications: Gastro-esophageal reflux disease without esophagitis; gabapentin 300 mg oral capsule 300 mg, 1, capsule, By Mouth, Daily at bedtime, Refills 0, Maintenance, 07/16/23 12:51:00 PM EDT, Partial fill upon patient request if the prescription is for a schedule II opioid drug. Start Date: 07/16/23 Status: Ordered Medication Dispense Status: Completed Total Allowed Fills: 1 Fills Dispensed: 0 HYDROmorphone 2 mg oral tablet 1 tablet = 2 mg, By Mouth, Every 4 hours, PRN as needed for pain, 0 Refills, Maintenance, 01/21/25 2:42:00 PM EST, Tablet, Partial fill upon patient request if the prescription is for a schedule II opioid drug. Start Date: 01/21/25 Status: Ordered Medication Dispense Status: Completed Total Allowed Fills: 1 Fills Dispensed: 0 levothyroxine 0.05 mg oral tablet 1 tablet = 50 mcg, By Mouth, Daily, # 90 tablet, 3 Refills, Maintenance, 01/21/25 3:17:00 PM EST, [facility] # [id number], Please complete lab work prior to next refill, 170.1, cm, 01/21/25 14:36:00 EST, Height, 82.5, kg, 11/05/23 9:56:00 EDT, Dry Weight Start Date: 01/21/25 Status: Ordered Medication Dispense Status: Completed Quantity: 90.0 Unit: tablet Total Allowed Fills: 4 Fills Dispensed: 0 Indications: Hypothyroidism, unspecified; Metoprolol Tartrate 25 mg oral tablet 1 tablet, By Mouth, 2 times a day, # 180 tablet, 1 Refills, Maintenance, 10/20/23 11:52:00 AM EDT, [facility] #[id number], 170.1, cm, 09/26/23 10:33:00 EDT, Height Start Date: 10/20/23 Status: Ordered Medication Dispense Status: Completed Quantity: 180.0 Unit: tablet Total Allowed Fills: 1 Fills Dispensed: 0 pantoprazole 40 mg oral delayed release tablet 1 tablet, By Mouth, 2 times a day, # 60 tablet, 0 Refills, Maintenance, 01/19/25 6:59:00 AM EST, 170.1, cm, 08/05/24 11:13:00 EDT, Height, 82.5, kg, 11/05/23 9:56:00 EDT, Dry Weight Start Date: 01/19/25 Status: Ordered Medication Dispense Status: Completed Quantity: 60.0 Unit: tablet Total Allowed Fills: 1 Fills Dispensed: 0 topiramate 25 mg oral tablet 1 tablet = 25 mg, By Mouth, 2 times a day, # 180 tablet, 3 Refills, Maintenance, 01/21/25 3:18:00 PM EST, [facility] # [id number], 170.1, cm, 01/21/25 14:36:00 EST, Height, 82.5, kg, 11/05/23 9:56:00 EDT, Dry Weight Start Date: 01/21/25 Status: Ordered Medication Dispense Status: Completed Quantity: 180.0 Unit: tablet Total Allowed Fills: 4 Fills Dispensed: 0 Indications: Chronic pain syndrome; Vitamin D3 2000 intl units oral capsule 1 capsule = 50 mcg, By Mouth, Daily, # 60 capsule, 0 Refills, Maintenance, 01/21/25 2:44:00 PM EST,Capsule, Partial fill upon patient request if the prescription is for a schedule II opioid drug. Start Date: 01/21/25 Status: Ordered Medication Dispense Status: Completed Quantity: 60.0 Unit: capsule Total Allowed Fills: 1 Fills Dispensed: 0 Mental Status Mental Status Assessment Assessment Assessment Component Result Effecti ve Date Patient Health Questionnaire 2 item (PHQ-2) total score [Reported] 0 01/21/25 Problem List Condition Confirmation Course Effective Dates Status H ealth Status Informant Herndon esophagus Confirmed Active Chronic back pain Confirmed Active Self-catheterizes urinary bladder Confirmed Active GERD (gastroesophageal reflux disease) Confirmed Active History of pulmonary embolism Confirmed Active History of polyp of colon Confirmed Active Hyperlipidemia Confirmed Active Hypothyroidism Confirmed Active Diagnosis Diagnosis Type Effective Dates Health Status Clinical Service Informant Chronic pain syndrome Discharge Diagnosis 01/21/25 residential current use of anticoagulant Discharge Diagnosis 01/21/25 Hypothyroidism Discharge Diagnosis 01/21/25 Hyperlipidemia Discharge Diagnosis 01/21/25 Herndon esophagus Discharge Diagnosis 01/21/25 Chronic bipolar disorder Discharge Diagnosis 01/21/25 Vital Signs Most recent to oldest [Reference Range]: 1 Height 170.1 cm (01/21/25 2:36 PM) Weight 79.5 kg (01/21/25 2:36 PM) Oxygen Saturation [94-100 %] 97 % (01/21/25 2:36 PM) Pulse Rate [55-90 bpm] 79 bpm (01/21/25 2:36 PM) Body Mass Index [18.5-24.99 kg/m2] 27.48 kg/m2 *H* (01/21/25 2:36 PM) Blood Pressure [90-138/55-84 mm Hg] 106/ 68mm Hg (01/21/25 2:36 PM) Mode of Delivery (Oxygen) Room air (01/21/25 2:36 PM) Blood pressure sites Arm, right (01/21/25 2:36 PM) Weight Obtained Via Standing scale (01/21/25 2:36 PM) Social History Social History Type Response Smoking Status Never (less than 100 in lifetime) entered on: 08/05/24 Sexual Orientation Self described orien tation: ; Straight or heterosexual Sex Sex Representation Male (finding) Note * Juana Dhaliwal: PERFORM Event Display: Patient Education/Instruction Authored Date: [id number] Ambulatory Adult Visit Summary [facility] [address] [place] [address] Name: KAREN GORDON : 1955?? Visit: 01/21/2025 14:00?? Ambulatory Visit Instructions ?? Your Care Team Primary Care Provider Pascual Cordoba MD? 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 Hypothyroidism Hyperlipidemia Herndon esophagus Chronic bipolar disorder Vitals Signs Pulse Rate: 79 bpm Height: 170.1 cm Systolic Blood Pressure: 106 mm Hg Weight: 79.5 kg Diastolic Blood Pressure: 68 mm Hg Body Mass Index:??27.48 kg/m2??High Oxygen Saturation: 97 % Body surface area: 1.94 What to do next Follow-Up Appointments Follow Up with??Pascual Cordoba MD When:05/04/2025 02:40 PM EDT Where:[address] [place] [address]- Additional Information: ANNUAL MEDICARE WELLNESS VISIT Follow up Appointment - Ordered?-- follow up aprilmay 2025- annual wellness visit, 01/21/25 15:26:00 EST Future Orders INR - Routine, Once, 03/04/24 14:15:00 EST, Within 3 Days, [facility], Blood?? INR - Routine, Once, 03/05/24 3:00:00 EST every 3 days for 12 week(s), Single or Recurring Future Order, [facility], Blood?? CBC w/ Differential - Routine, Once, 01/21/25 15:19:00 EST, Order for Today, [facility], Blood?? Comprehensive Metabolic Panel - Routine, Once, 01/21/25 15:19:00 EST, Order for Today, [facility], Blood?? TSH Rfx on Abnormal to Free T4 - Routine, Once, 01/21/25 15:20:00 EST, Order for Today, [facility], Blood?? Medications The list below reflects the information in our records and provided by you today along with any changes made during this visit. Please continue your medications until treatment is completed or stopped by your provider. If this is different from the information you have or there are other questions,please contact the prescribing provider. What How Much When Why Instructions New Atorvastatin (atorvastatin 20 mg oral tablet) 1 tab(s) Oral Daily Hyperlipidemia Refills: 3 Ordering Physician: Pascual Cordoba MD at [facility] # [id number] New Levothyroxine (levothyroxine 0.05 mg oral tablet) 1 tab(s) Oral Daily Hypothyroidism Refills: 3 Ordering Physician: Pascual Cordoba MD at [facility] # 302 New Topiramate (topiramate 25 mg oral tablet) 1 tab(s) Oral Twice a day Chronic pain syndrome Refills: 3 Ordering Physician: Pascual Cordoba MD at [facility] # 302 Unchanged apixaban (Eliquis 5 mg oral tablet) 1 tab(s) Oral Twice a day Unchanged Carbamazepine (Carbamazepine Tablet) 200 Milligram Special Instructions: two tablets at PM ?? Unchanged Cholecalciferol (Vitamin D3 2000 intl units oral capsule) 1 capsule Oral Daily Unchanged Cyclobenzaprine (cyclobenzaprine 10 mg oral tablet) 1 tab(s) Oral 3 times a day as needed for for spasm Unchanged Duloxetine (duloxetine 30 mg oral enteric coated capsule) 1 capsule Oral Daily Unchanged Duloxetine (duloxetine 60 mg oral enteric coated capsule) 1 capsule Oral Daily Special Instructions: take together with the 30 mg ?? Unchanged Famotidine (famotidine 20 mg oral tablet) 1 tab(s) Oral Twice a day as needed for breakthrough GERD GERD (gastroesophageal reflux disease) Ordering Physician: Lynnette Liang NP Unchanged Gabapentin (gabapentin 300 mg oral capsule) 1 capsule Oral Daily at Bedtime Unchanged Hydromorphone (HYDROmorphone 2 mg oral tablet) 1 tab(s) Oral Every 4 hours as needed for as needed for pain Unchanged Metoprolol (Metoprolol Tartrate 25 mg oral tablet) 1 tab(s) Oral Twice a day Ordering Physician: Bonilla Grant DO Unchanged Miscellaneous Rx (D- Mannose 2000mg) See instructions Unchanged Pantoprazole (pantoprazole 40 mg oral delayed release tablet) 1 tab(s) Oral Twice a day Ordering Physician: Lynnette Liang NP Pharmacy Information [facility] # [id number]: [address] [place], [place] [id number] [phone] ?? What How Much When Comments Stop Taking Acetaminophen (Tylenol 8 Hour Caplet) 1,300 Milligram Oral Every 8 hours Stop Taking Ascorbic Acid (ascorbic acid 500 mg oral tablet) Special Instructions: ORAL, TABLET, 0 Refill(s), ?? Stop Taking Buprenorphine (buprenorphine 7.5 mcg/ hr transdermal film, extended release) See instructions Special Instructions: 1 patch weekly ?? Stop Taking Warfarin (warfarin 5 mg oral tablet) 1 tab(s) Oral Daily Ordering Physician: Pascual Cordoba MD Test Performed Below is a partial list of the tests performed during your Visit. You may have had other tests and procedures not included in this list. Please discuss all test results with your provider. CBC w/ Differential?-- Results Pending -- Comprehensive Metabolic Panel?-- Results Pending -- TSH Rfx on Abnormal to Free T4?-- Results Pending -- Medications and Immunizations Administered Medications Given During Visit No medications given during this visit.?? Allergies (NKA means No Known Allergies) Bactrim OxyCONTIN??Vertigo oxyCODONE??vertigo Common Emergency Awareness Tips IS IT A [...] are strongly encouraged to quit. Please call [facility] Link at [phone] or [phone] ([phone]) or log in to [email or web address] for referrals to smoking cessation programs. ?? The National Suicide Prevention Hotline is available 04/09 if you or someone you know needs to find a reason to keep living. By calling 8-926-242-Clickslide (3721) you'll be connected to a skilled, trained counselor at a crisis center in your area. [facility] Portal You can view and manage your care through the patient portal or by using a health care hannah of your choosing. [employer] is a website that allows you to securely view your medical information including your hospital discharge summary, office visit summaries, medications and follow-up visits. You can also request appointments, renew medications, and request access to your medical information using a health care hannah of your choosing, or just ask a question. You can enroll at [email or web address] or register during your next office visit. [facility], in keeping with [facility] guidance, no longer requires face masks [...] primary care provider, you may find a [facility] provider by calling [facility] at [phone]. Patient Care team information Care Team Personnel Name: Pascual Cordoba MD Position: [facility] Physician - Primary Care Member Role: PCP Address: [address] [place] [id number] [place] Telecom: Name: Marissa Ashton RN Position: [facility] RN Member Role: Primary Care Nurse Care Team Related Persons Name: SALLIE GORDON Insurance Providers Guarantor name: KAREN EVAN Health Plan Information #: 1 Payer: [facility] PPO Payer Identifier: CHAGO Member Number: [id number] Group Number: [id number] Subscriber Identifier: [id number] Relationship to Subscriber: self Coverage Type: Medicare PPO Coverage Verification Date: NA Telecom: NA Address: NA
--- NOTE | 2025-01-29 15:02 | A.OFFVIS_ITS ---
Vital Signs 01/29/25 15:04 Height 5 ft 7 in Weight 179 lb BMI 28.0 BP 140/74 H Blood Pressure Location Lt brachial Position Sitting Respiration 16 Pulse 88 Pulse Source Pulse Oximeter Pulse Oximetry (%) 96 Oxygen Delivery Method Room Air Intake Visit Reasons: Pill Count Intake Note: Patient here for a pill count of Hydromorphone per directions patient should have 64 pills. Patient presented 84 pills. Last took 9am. 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 His supposed to have 64 pills in his possession. He presented with 84 pills in his possession. Therefore his pill count is correct. He reports that hydromorphone helps his pain much better than tramadol. He admits intermittent dizziness. I recommended him to measure his blood pressure approximately 40 minutes after he takes his hydromorphone pill. We will continue observation. His medication is due to refill on 02/16/2024. His mass pat was checked and it is appeared to be correct. PRIOR: Carlito developed subcutaneous CSF leak after pain pump implantation. Revision was done on 04/18/2024 where the leak was discovered coming from the laminitomy and catheter insertion site. the duragen and neurosurgical glue were used to close the leak. never-the less expectations were high that the leak would return. The leg did return and explantation of the intrathecal pain pump and repair of the dura matter by Dr. Velasco were performed. Past Procedures: 04/18/2024: revision of the ItDD system 01/18/2024: Implantation of the I DDD with neurosurgical implanted intrathecal catheter via anatomy. 08/10/23: Attempt of ITDD implant-0% pain relief, procedure aborted 05/22/23: ITDD trial with Fentanyl -80% pain relief for 28 hours 04/20/23: Lumbar Nevro SCS trial-30-40% pain relief [facility] Medical History Acute respiratory failure Pulmonary embolus LAU (dyspnea on exertion) ROSS (obstructive sleep apnea) Arthritis Hiatal hernia Anxiety Depression Elevated cholesterol Atrial fibrillation Self-catheterizes urinary bladder Disorder of sacroiliac joint Lumbar spinal stenosis Thyroid disease GERD (gastroesophageal reflux disease) Cognitive disorder Back pain Bladder atony Osteoarthritis of hips, bilateral Hypothyroidism Hyperlipidemia Bipolar 1 disorder DVT (deep venous thrombosis) Lynette's thyroiditis Sacroiliac joint pain Bilateral lumbar radiculopathy Spondylosis of lumbar spine Bilateral hip pain Spondylolisthesis Surgical History History of surgery Previous back surgery History of hand surgery History of esophagogastroduodenoscopy (EGD) (~10/2023) Hx of umbilical hernia repair Hx of colonoscopy Social History Household Members: Spouse and Children Housing: House Are you a primary youth care specialist to a significant other at home: No Do you presently have visiting nurse or other home services: No Comment: COUNTS CORRECT Patient Tobacco Use Status: Never used Tobacco e-Cigarette/Vaping Use: Never Used service: No Review of Systems Const All systems reviewed & are unremarkable except as noted in HPI and below Physical Exam Vital Signs: Last Vital Signs Pulse 88 01/29/25 15:04 Resp 16 01/29/25 15:04 BP 140/74 H 01/29/25 15:04 Pulse Ox 96 01/29/25 15:04 Oxygen Delivery Method Room Air 01/29/25 15:04 BMI result Body Mass Index 28.0 General: Appears afebrile. Alert and oriented. Mood and affect appropriate. Follows and participates in conversation appropriately. Respiratory effort is unlabored. Able to transition from sit to stand unassisted. Ambulates with bilaterally normal heel strike and toe off. General: Yes no CVA tenderness Back/Spine/Pelvis Other: Midline incision wound-No pathological discharge, no swelling and no erythema. the upper buttock incision is also clean, no erythema, no edema, no local tenderness, however deep under the skin both of the incisions exhibits signs of ballottement of the fluid. Back: no CVA tenderness Assessment & Plan Assessment & Plan (1) Spondylolisthesis: Code(s): M43.10 - Spondylolisthesis, site unspecified Category: Medical (2) CSF leak: Code(s): G96.00 - Cerebrospinal fluid leak, unspecified Category: Medical (3) Spondylosis of lumbar spine: Code(s): M47.816 - Spondylosis without myelopathy or radiculopathy, lumbar region Category: Medical (4) Bilateral lumbar radiculopathy: Code(s): M54.16 - Radiculopathy, lumbar region Category: Medical (5) Epidural lipomatosis: Code(s): D17.79 - Benign lipomatous neoplasm of other sites Category: Medical (6) Spinal stenosis of lumbar region with radiculopathy: Code(s): M48.061 - Spinal stenosis, lumbar region without neurogenic claudication; M54.16 - Radiculopathy, lumbar region Category: Medical (7) Spinal cord stimulator dysfunction: Code(s): T85.192A - Other mechanical complication of implanted electronic neurostimulator of spinal cord electrode (lead), initial encounter Category: Medical (8) Malfunction of intrathecal infusion pump: Code(s): T85.615A - Breakdown (mechanical) of other nervous system device, implant or graft, initial encounter Category: Medical Plan Pill count is correct today. The patient reports better pain control with hydromorphone compared to tramadol. He reports intermittent not frequent dizziness. He will measure his blood pressure 40 minutes after he takes his pill. Hopefully it is not from the medications. He was informed that if his diizziness become stronger he would need to go to emergency room. He expressed understanding. The patient is very grateful for the care he received here. The patient has multiple side effects on hydrocodone and oxycodone. Unable to tolerate those medications. I will refill his script of hydromorphone which is due on 02/15/2025 He was prescribed Narcan on 02/17/2024. Medications: Refilled hydromorphone Partial Fill upon patient request. 2 mg PO Q6H PRN 120 tabs 0RF pain 30 days Coding Level of Care Code Est Pt Level 3 (31058) Diagnoses Spondylolisthesis M43.10 CSF leak G96.00 Spondylosis of lumbar spine M47.816 Bilateral lumbar radiculopathy M54.16 Epidural lipomatosis D17.79 Spinal stenosis of lumbar region with radiculopathy M48.061; M54.16 Spinal cord stimulator dysfunction T85.192A Malfunction of intrathecal infusion pump T85.277R
[2025-01-29 15:04] VITALS: BP 140/74; PULSE 88; RESP 16; O2SAT 96; BMI 28.0
--- OUTSIDE RECORDS SUMMARY | 2025-01-29 18:56 | XMS_ITS | Clinical Summary ---
Author Organization [facility] Address [address] [place] [address] Care Team Providers Care Escort Car Driver Name Role Phone Bonilla Grant MD Primary Care Provider [phone] Allergies Active Allergy Reactions Criticality Noted Date [...] Exposure: Never Smokeless Tobacco: Never [facility] O2 [place]ities Answer Date Recorded In the past 12 months has Edictive, gas, oil, or water Proficient threatened to shut off services in your [...] any time in the past 12 m [facility], were you homeless or living in a custodial (including now)? No 02/29/2024 Sex and Gender [...] 2) 04/24/2007 Influenza Vaccine 09/12/2024 COVID-19 Vaccine (1 - 2024-2 6 season) 2024 RSV Vaccine 50 years and [...] 7:40 PM 02/28/2024 8:48 PM Care Teams Escort Car Driver Relationship Specialty Start Date End Date Bonilla Grant MD [facility] [place] [address] PCP - General Psychiatry, General 02/28/24
--- OUTSIDE RECORDS SUMMARY | 2025-01-29 18:56 | XMS_ITS | Clinical Summary ---
Author Organization [facility] Address [address] [place] [address] Phone Care Team Providers Care Hyperion Analyst Name Role Phone Bonilla Grant Primary Care Provider [phone] Allergies Active Allergy Reactions Criticality Noted Date [...] times a day. 60 tablet 5 Active Eliquis 5 mg tablet Take 1 tablet (5 mg total) by mouth 2 (two) times a day. 60 tablet 5 01/20/20 25 Discontinued Medical History Medical History Date Comments DVT, lower extremity ([facility] V24, [facility] V28) Bipolar 1 disorder ([facility] V24, [facility] V28) Hyperlipidemia Hypothyroidism Lumbar spinal stenosis GI disease Pulmonary emboli ([facility] V24, [facility] V28) Umbilical hernia Family History [...] PM EST Sexual Orientation Not on file Last Filed Vital Signs Vital Sign Reading [...] [place] [employer] Care Teams Hyperion Analyst Relationship Specialty Start Date End Date Bonilla Grant DO [address], [place] PCP - General Family Medicine 03/10/24
== END 2025-01-29 15:18 | disposition home or self-care (01) ==
LOC: HO.PMC 14:51
PROVIDERS: PCP Internal Medicine; Visit Provider Anesthesiology
DX: M43.10 Spondylolisthesis, site unspecified (principal); G96.00 Cerebrospinal fluid leak, unspecified; M47.816 Spondylosis without myelopathy or radiculopathy, lumbar region; M54.16 Radiculopathy, lumbar region; D17.79 Benign lipomatous neoplasm of other sites; M48.061 Spinal stenosis, lumbar region without neurogenic claudication; T85.192A Other mechanical complication of implanted electronic neurostimulator of spinal cord electrode (lead), initial encounter; T85.615A Breakdown (mechanical) of other nervous system device, implant or graft, initial encounter
CPT/HCPCS: 99213

== ENCOUNTER → 2025-01-29 14:50 | Outpatient (BNVA) | payer MEDICARE, SELFPAY | PROVIDERS: PCP Internal Medicine; Visit Provider Anesthesiology | DX: G96.00 Cerebrospinal fluid leak, unspecified (principal); R42 Dizziness and giddiness; M47.816 Spondylosis without myelopathy or radiculopathy, lumbar region; M54.16 Radiculopathy, lumbar region; M48.061 Spinal stenosis, lumbar region without neurogenic claudication; D17.79 Benign lipomatous neoplasm of other sites; T85.192A Other mechanical complication of implanted electronic neurostimulator of spinal cord electrode (lead), initial encounter; T85.615A Breakdown (mechanical) of other nervous system device, implant or graft, initial encounter; Z51.81 Encounter for therapeutic drug level monitoring; Z79.891 Long term (current) use of opiate analgesic | CPT/HCPCS: 99212 ==